=== PATIENT | male | born 1975 | race Caucasian/White ===

== ENCOUNTER 2023-04-07 09:38 | Outpatient (OUT) | payer OTHER, SELFPAY ==
--- NOTE | 2023-04-07 09:42 | US_ITS ---
[address] [address] Patient Name: GUTIERREZ WARD MRN: [id number] date: 1975 Sex: M Assigned Patient Location: US Current Patient Location: Accession/Order Number: [id number] Exam Date: 04/07/2023 09:48 Report Date: 04/07/2023 10:48 At the request of: FER HO Procedure: US renal bladder EXAM: US renal bladder HISTORY: Acute Cystitis N30.00 COMPARISON: None. TECHNIQUE: Ultrasound of the kidneys. FINDINGS: The right kidney measures 11.9 x 5.8 x 5.4 cm and appears normal. The left kidney measures 12.8 x 7.5 x 6.8 cm and appears normal. The urinary bladder appears normal. US/US renal bladder IMPRESSION: Unremarkable exam. Electronically authenticated by: PAM CAMPOS Date: 04/07/2023 10:48
== END 2023-04-07 09:39 | disposition home or self-care (01) ==
LOC: US 09:38
PROVIDERS: PCP Family Medicine; Visit Provider Family Medicine
DX: N30.00 Acute cystitis without hematuria (principal)
CPT/HCPCS: 76770

== ENCOUNTER 2024-02-13 07:43 | Outpatient (OUT) | payer OTHER, SELFPAY ==
--- OUTSIDE RECORDS SUMMARY | 2024-02-13 07:45 | XMS_ITS | CCD ---
Author Organization [facility] Care Team Providers Care Director Learning Services Name Role Phone Fer Feliz Primary Care Physician [phone] JOSE ANGEL, Khadar Reed Attending Unavailable Hoy PROVIDER, Fer Referring Unavailabl e NILL, Khadar Reed Attending Unavailable Hoy PROVIDER, Fer Referring Unavailabl e NILL, Khadar Reed Attending Unavailable Hoy PROVIDER, Fer Referring Unavailabl e NILL, Khadar Reed Attending Unavailable NILL, Khadar Reed Attending Unavailable NILL, Khadar Reed Attending Unavailable HOY ., DR MONROE Primary Care Unavailable NILL ., DR RUBALCAVA Attending Unavailable NILL ., DR RUBALCAVA Admitting Unavailable HOY ., DR MONROE Consulting Unavailable HOY ., DR MONROE Primary Care Unavailable HOY ., DR MONROE Attending Unavailable HOY ., DR MONROE Admitting Unavailable HOY ., DR MONROE Procedure Practitioner Unavail able HOY ., DR MONROE Consulting Unavailable HOY ., DR MONROE Attending Unavailable HOY ., DR MONROE Admitting Unavailable HOY ., DR MONROE Primary Care Unavailable TIKA CARRERO Consulting Unavailable ASIA BAXTER Consulting Unavailable HAWTHORNEREJI STOREY Consulting Unavailable SHAWANDA MILLER Consulting Unavailable HOY ., DR MONROE Consulting Unavailable HOY ., DR MONROE Primary Care Unavailable HOY ., DR MONROE Attending Unavailable HOY ., DR MONROE Admitting Unavailable HOY ., DR MONROE Consulting Unavailable HOY ., DR MONROE Primary Care Unavailable HOY ., DR MONROE Attending Unavailable HOY ., DR MONROE Admitting Unavailable NILL ., DR RUBALCAVA Consulting Unavailable HOY ., DR MONROE Primary Care Unavailable NILL ., DR RUBALCAVA Attending Unavailable NILL ., DR RUBALCAVA Admitting Unavailable HOY ., DR MONROE Consulting Unavailable HOY ., DR MONROE Primary Care Unavailable NILL ., DR RUBALCAVA Attending Unavailable NILL ., DR RUBALCAVA Admitting Unavailable NILL ., DR RUBALCAVA Consulting Unavailable LALY JACOBSEN Consulting Unavailable JENA VORA Consulting Unavailable NILL ., DR RUBALCAVA Consulting Unavailable HOY ., DR MONROE Primary Care Unavailable NILL ., DR RUBALCAVA Attending Unavailable NILL ., DR RUBALCAVA Admitting Unavailable HALLE BROOKS Consulting Unavailable WISAM GRANT Unavailable HOY, FER M Primary Care Unavailable JOSE MANUEL GRANT Referring Unavailable HOY, FER M Primary Care Unavailable GERMAN GARCIA Attending Unavailable GERMAN GARCIA Attending Unavailable GERMAN GARCIA Referring Unavailable HOY, FER M Primary Care Unavailable RADHA AVITIA I Attending Unavailable HOY, FER M Referring Unavailable HOY, FER M Primary Care Unavailable ERLIN CARDENAS Attending Unavailable HOY, FER M Referring Unavailable HOY, FER M Primary Care Unavailable HOY, FER M Referring Unavailable HOY, FER M Primary Care Unavailable RADHA AVITIA I Referring Unavailable HOY, FER M Primary Care Unavailable HOY, FER M Primary Care Unavailable RILEY, ALMA Attending Unavailable LIN, ALMA Attending Unavailable LINALMA Referring Unavailable HOY, FER M Primary Care Unavailable Fer Feliz MD Primary Care Provider [phone] ZHANNA RINCON Attending Unavailable HOY, FER M Referring Unavailable JESÚS SAUNDERS Attending Unavailable TIMMISZHANNA H Referring Unavailable KIKIMISZHANNA H Attending Unavailable TIMMIS, ZHANNA H Referring Unavailable Allergies Allergy Classification Reported Allergen(s) Allergy Type Date of Onset Reaction(s) Facility (4 sources) Acetaminophen / HYDROcodone; Translations: [acetaminophen-hy drocodone] Drug Allergy 03-15-20 14 Nausea (finding) [facility] [place] (4 sources) Penicillin; Translations: [penicillin] Drug Allergy Unknown (qualifier value) [facility] [place] (2 sources) Acetaminophen / HYDROcodone Drug Allergy 03-16-20 14 [facility] (5 sources) Penicillins; Translations: [PENICILLINS] Drug allergy (disorder) 03-16-20 14 [facility] (4 sources) Penicillins Drug Intolerance 06-12-19 [facility] Medications Current Medications Medication Drug Class(es) Dates Sig (Normalized) Sig (Original) Acidophilus Probiotic Blend (3 sources) Start: 09-18-2021 take 1 capsule by mouth once daily Acidophilus Probiotic Blend 1 cap(s), Oral, Daily, Refill(s) 0 Start Date: 09/18/21 Status: Ordered cetirizine hydrochloride 10 mg oral tablet (4 sources) Histamine-1 Receptor Antagonist Start: 11-13-2023 take 2 tablets by mouth once daily cetirizine (ZyrTEC) 10 MG tablet Take 20 mg by mouth Daily 11/13/2023 Active ciprofloxacin 3 mg/ml / dexamethasone 1 mg/ml otic suspension (4 sources) Corticosteroid, Quinolone Antimicrobial Start: 11-04-2023 ciprofloxacin-dex AMETHasone (CiproDEX) otic suspension Administer 4 drops into each ear in the morning and 4 drops before bedtime. 11/04/2023 Active fluticasone propionate 0.05 mg/actuat metered dose nasal spray (7 sources) Corticosteroid Start: 11-24-2023 End: 11-23-2024 take 2 spray(s) nasal route once daily fluticasone (Flonase) 50 MCG/ACT nasal spray Indications: ETD (Eustachian tube dysfunction), bilateral Administer 2 sprays into each nostril Daily Shake gently. Before first use, prime pump. After use, clean tip and replace cap. 16 g 11 11/24/2023 11/23/2024 Active Start: 11-13-2023 End: 01-20-2024 take 2 spray(s) nasal route in the morning Flonase Sensimist 27.5 MCG/SPRAY nasal spray Administer 2 sprays into each nostril in the morning. 11/13/2023 01/20/2024 Discontinued (Therapy completed) glimepiride 1 mg oral tablet (4 sources) Sulfonylurea Start: 11-16-2023 take 1 tablet by mouth before mealtime glimepiride (Amaryl) 1 MG tablet Take 1 mg by mouth in the morning. Take before meals. 11/16/2023 Active linaclotide 0.29 mg oral capsule (3 sources) Guanylate Cyclase-C Agonist Start: 09-12-2021 take 1 capsule by mouth once daily Linzess 290 mcg oral capsule 290 mcg = 1 cap(s), Oral, Daily, Refills(s) 0 Start Date: 09/12/21 Status: Ordered metFORMIN hydrochloride 500 mg oral tablet (3 sources) Biguanide Start: 09-12-2021 take 1 tablet by mouth twice daily metformin 500 mg oral tablet 500 mg = 1 tab(s), Oral, BID, Refills(s) 0 Start Date: 09/12/21 Status: Ordered metoprolol tartrate 25 mg oral tablet (2 sources) beta-Adrenergic Rosanne Start: 04-12-2022 take 1 tablet by mouth twice daily Metoprolol tartrate 25 mg Tab 25 mg = 1 tab(s), Oral, BID, Refills(s) 0 Start Date: 04/12/22 Status: Ordered pantoprazole 40 mg delayed release oral tablet (6 sources) Proton Pump Inhibitor Start: 09-19-2023 take 1 tablet by mouth once daily pantoprazole (ProtoNix) 40 MG EC tablet Take 40 mg by mouth Daily 09/19/2023 Active Start: 04-12-2022 take 1 tablet by chanell th once daily Protonix 40 mg Tab-DR 40 mg = 1 tab(s), Oral, Daily, Refills(s) 0 Start Date: 04/12/22 Status: Ordered polyethylene glycol 3350 28929 mg powder for oral solution (4 sources) Osmotic Laxative Start: 10-26-2023 polyethylene glycol, PEG, 3350 (Glycolax) 17 GM/SCOOP powder Take 17 g by mouth in the morning. 10/26/2023 Active sucralfate 1000 mg oral tablet (1 source) Aluminum Complex Start: 05-09-2022 Carafate 1 gram Tab 1 gm = 1 tab(s), Oral, QIDACHS, prescribed 05/08/22, Refills(s) 0 Start Date: 05/09/22 Status: Ordered tamsulosin hydrochloride 0.4 mg oral capsule (4 sources) alpha-Adrenergi c Rosanne Start: 08-23-2023 take 1 capsule by mouth every twenty-four hours in the morning tamsulosin (Flomax) 0.4 MG 24 hr capsule Take 0.4 mg by mouth in the morning. 08/23/2023 Active Completed/Discontinued Medications Medication Drug Class(es) Dates Sig (Normalized) Sig (Original) hyoscyamine sulfate 0.125 mg sublingual tablet (3 sources) Start: 10-03-2023 End: 01-20-2024 take 1 tablet by mouth every four hours as needed hyoscyamine (Levsin) 0.125 MG SL tablet Take 0.125 mg by mouth every 4 (four) hours if needed 10/03/2023 01/20/2024 Discontinued (Therapy completed) levoFLOXacin 750 mg oral tablet (3 sources) Quinolone Antimicrobial Start: 11-06-2023 End: 01-20-2024 levoFLOXacin (Levaquin) 750 MG tablet Take 250 mg by mouth 1 (one) time each day at the same time 11/06/2023 01/20/2024 Discontinued (Therapy completed) predniSONE 10 mg oral tablet (3 sources) Start: 11-13-2023 End: 01-20-2024 take 1 tablet by mouth once daily predniSONE (Deltasone) 10 MG tablet Take 10 mg by mouth Daily 11/13/2023 01/20/2024 Discontinued (Therapy completed) Problems Active Problems Problem Classification Problem Date Documented Da te Episodic/Chronic Abdominal pain (7 sources) Left lower quadrant pain; Translations: [Left lower quadrant pain] Onset: 2 Episodic Acute and unspecified renal failure (5 sources) Acute kidney failure, unspecified; Translations: [Acute nontraumatic kidney injury] Onset: 3 11-19-2023 Episodic Cardiac dysrhythmias (4 sources) Sinus tachycardia; Translations: [Tachycardia, unspecified] Onset: 4 11-19-2023 Episodic Coagulation and hemorrhagic disorders (1 source) Thrombocytopenia, unspecified; Translations: [THROMBOCYTOPENIA UNSPECIFIED] Onset: 3 Chronic Conditions associated with dizziness or vertigo (2 sources) Dizziness and giddiness; Translations: [Dizziness and giddiness] 01-20-2024 Episodic Deficiency and other anemia (1 source) Anemia, unspecified; Translations: [ANEMIA UNSPECIFIED] Onset: 3 Episodic Diabetes mellitus without complication (4 sources) Diabetes mellitus; Translations: [Type 2 diabetes mellitus without complications] Onset: 3 09-12-2021 Chronic Diabetes mellitus without complication (4 sources) Prediabetes; Translations: [Prediabetes] Onset: 4 11-19-2023 Episodic Digestive congenital anomalies (1 source) Other specified congenital malformations of intestine; Translations: [OTH SPEC CONGEN MALFORM INTESTINE] Onset: 2 Chronic Disorders of lipid metabolism (9 sources) Hypertriglyceridemia; Translations: [Pure hyperglyceridemia] Onset: 2 09-12-2021 Chronic Diverticulosis and diverticulitis (7 sources) Diverticulitis; Translations: [Diverticulitis of intestine, part unspecified, without perforation or abscess without bleeding] Onset: 4 09-12-2021 Chronic Esophageal disorders (15 sources) Gastroesophageal reflux disease; Translations: [Gastroesophageal reflux disease without esophagitis] Onset: 3 09-12-2021 Chronic Essential hypertension (4 sources) Hypertensive disorder; Translations: [Essential (primary) hypertension] Onset: 3 09-12-2021 Chronic Fluid and electrolyte disorders (6 sources) Hypo-osmolality and hyponatremia; Translations: [Hypokalemia] Onset: 3 11-19-2023 Episodic Gastritis and duodenitis (1 source) Gastritis, unspecified, without bleeding; Translations: [GASTRITIS UNS WITHOUT BLEEDING] Onset: 3 Episodic Glaucoma (7 sources) Glaucoma; Translations: [Unspecified glaucoma] Onset: 4 09-12-2021 Chronic Headache; including migraine (7 sources) Migraine; Translations: [Migraine, unspecified, not intractable, without status migrainosus] Onset: 4 09-12-2021 Chronic Inflammatory conditions of male genital organs (4 sources) Balanitis; Translations: [Balanitis] Onset: 4 11-19-2023 Chronic Neoplasms of unspecified nature or uncertain behavior (7 sources) Neoplasm of pancreas; 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] Onset: 4 09-12-2021 Episodic Nonmalignant breast conditions (7 sources) Gynecomastia; Translations: [Hypertrophy of breast] Onset: 4 09-12-2021 Episodic Other aftercare (1 source) group home (current) use of oral 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 drugs; Translations: [[employer] IN[employer]STIGATOR USE ORAL HYPOGLYCEMIC DX] Onset: 3 Episodic Other bone disease and musculoskeletal deformities (7 sources) Juvenile osteochondrosis of lower extremity; Translations: [Juvenile osteochondrosis of head of femur [[id number]], unspecified leg] Onset: 4 09-12-2021 Chronic Other ear and sense organ disorders (2 sources) Bilateral earache; Translations: [Otalgia, bilateral] 01-20-2024 Episodic Other ear and sense organ disorders (2 sources) Impacted cerumen of bilateral ears; Translations: [Impacted cerumen, bilateral] 01-20-2024 Episodic Other gastrointestinal disorders (7 sources) Irritable bowel syndrome; Translations: [Irritable bowel syndrome without diarrhea] Onset: 4 09-12-2021 Chronic Other gastrointestinal disorders (1 source) Altered bowel function; Translations: [Change in bowel habit] Onset: 2 Episodic Other gastrointestinal disorders (3 sources) Alteration in bowel elimination 09-18-2021 Episodic Other gastrointestinal disorders (7 sources) Constipation; Translations: [Constipation, unspecified] Onset: 4 09-12-2021 Episodic Other gastrointestinal disorders (1 source) Dysphagia 04-20-2022 Episodic Other gastrointestinal disorders (1 source) Dysphagia, unspecified; Translations: [DYSPHAGIA UNSPECIFIED] Onset: 3 Episodic Other gastrointestinal disorders (1 source) Abdominal distension (gaseous); Translations: [Abdominal distension (gaseous)] Onset: 3 Episodic Other gastrointestinal disorders (1 source) Constipation, unspecified; Translations: [Constipation, unspecified] Onset: 4 Episodic Other nutritional; endocrine; and metabolic disorders (2 sources) Obese class II; Translations: [Body mass index (BMI) 38.0-38.9, adult] Onset: 2 Chronic Other nutritional; endocrine; and metabolic disorders (3 sources) Body mass index 30+ - obesity 09-18-2021 Chronic Other nutritional; endocrine; and metabolic disorders (1 source) Morbid (severe) obesity due to excess calories; Translations: [MORBID SEVERE OBES D/T EXCESS CHARLEEN] Onset: 3 Chronic Other nutritional; endocrine; and metabolic disorders (1 source) Body mass index (BMI) 38.0-38.9, adult; Translations: [BODY MASS INDEX BMI 38.0-38.9 ADULT] Onset: 3 Chronic Other nutritional; endocrine; and metabolic disorders (7 sources) Hyperuricemia; Translations: [Hyperuricemia without signs of inflammatory arthritis and tophaceous disease] Onset: 4 09-12-2021 Episodic Other nutritional; endocrine; and metabolic disorders (4 sources) Overweight; Translations: [Overweight] Onset: 4 11-19-2023 Episodic Other skin disorders (4 sources) Acne; Translations: [Acne, unspecified] Onset: 4 11-19-2023 Episodic Other upper respiratory infections (2 sources) Chronic sinusitis; Translations: [Chronic sinusitis, unspecified] 01-20-2024 Chronic Other upper respiratory infections (4 sources) Acute sinusitis; Translations: [Acute sinusitis, unspecified] Onset: 4 11-19-2023 Episodic Residual codes; unclassified (1 source) Insomnia, unspecified; Translations: [INSOMNIA UNSPECIFIED] Onset: 3 Episodic Septicemia (except in labor) (10 sources) Sepsis, unspecified organism; Translations: [Sepsis due to Escherichia coli [E. coli]] Onset: 3 Episodic Spondylosis; intervertebral disc disorders; other back problems (6 sources) Disorder of lumbar disc; Translations: [Unspecified thoracic, thoracolumbar and lumbosacral intervertebral disc disorder] Onset: 4 04-12-2022 Chronic Unclassified (1 source) PERSONAL HISTORY OF COVID-19; Translations: [PERSONAL HISTORY OF COVID-19] Onset: 3 Unclassified (3 sources) CONTACT W/AND (SUSP) EXPOS COVID-19; Translations: [CONTACT W/AND (SUSP) EXPOS COVID-19] Onset: 2 Unclassified (1 source) GASTR-ESOPH RFLX DS ESPHGTS W/O BLD; Translations: [GASTR-ESOPH RFLX DS ESPHGTS W/O BLD] Onset: 3 Unclassified (1 source) Urinary Frequency, Pressure Onset: 4 Urinary tract infections (11 sources) Tubulo-interstitial nephritis, not specified as acute or chronic; Translations: [Acute pyelonephritis] Onset: 3 Episodic Viral infection (4 sources) Disease caused by 2019-nCoV; Translations: [COVID-19] Onset: 4 11-19-2023 Episodic Viral infection (1 source) COVID-19; Translations: [COVID-19] Onset: 2 Past or Other Problems Problem Classification Problem Date Documented Da te Episodic/Chronic Calculus of urinary tract (7 sources) Calculus of kidney; Translations: [Kidney stone] Onset: 08-23-2023 11-19-2023 Episodic Genitourinary symptoms and ill-defined conditions (5 sources) Urinary frequency; Translations: [Increased frequency of urination] Onset: 06-12-2021 11-19-2023 Episodic Other gastrointestinal disorders (4 sources) Change in bowel habit; Translations: [CHANGE IN BOWEL HABIT] Onset: 10-24-2021 Episodic Other screening for suspected conditions (not mental disorders or infectious disease) (4 sources) Patient encounter status; Translations: [Encounter for screening for malignant neoplasm of prostate] Onset: 06-12-2021 11-19-2023 Episodic Unclassified (1 source) CONTACT W/AND (SUSP) EXPOS COVID-19; Translations: [CONTACT W/AND (SUSP) EXPOS COVID-19] Onset: 12-13-2021 Results Test Name Value Interpretation Reference Range Facility XR PARANASAL SINUSES 3+ VIEW Son 01-21-2024 XR PARANASAL SINUSES 3+ VIEWS Exam: XR - XRAY SINUSES COMP MIN 3 VIEWS Reason for exam: Imbalance issues, some sinus pressure Prior comparative studies: None Findings: No air-fluid levels are apparent. There is prominent adenoidal tissue versus nasopharyngeal swelling. Orbital structures are unremarkable. IMPRESSION: 1. Prominent adenoids versus nasopharyngeal swelling. Recommend direct clinical correlation to this area. If needed, CT could be used to better characterize. Electronically Signed Sam Ring M.D. 2024-01-21 16:12:[address] ABDOMEN AND PELVIS WO CON Ton 10-26-2023 CT ABDOMEN AND PELVIS WO CONT CT ABDOMEN AND PELVIS WO CONT CT ABDOMEN AND PELVIS WO CONT CLINICAL INFORMATION: Abdominal/flank pain, stone suspected. Lower right groin/bladder pain with urinary frequency. Renal calculus screening and follow-up. COMPARISON: CT abdomen and pelvis without contrast 08/23/2023. TECHNIQUE: CT of the abdomen/pelvis without intravenous contrast. All CT scans at this facility use dose modulation, iterative reconstruction, and/or weight based dosing when appropriate to reduce radiation dose to as low as reasonably achievable. FINDINGS: Limited evaluation of solid organs, lymph nodes, and vessels in the absence of IV contrast. LOWER CHEST: Unremarkable. LIVER AND BILIARY: Noncirrhotic morphology. No biliary ductal dilatation. Biliary sludge/small gallstones increased from prior within without evidence of inflammatory changes. PANCREAS: Unremarkable morphology. No ductal dilatation or peripancreatic fluid. SPLEEN: Not enlarged. ADRENALS: Unremarkable morphology. KIDNEYS: Right kidney is unremarkable. There is a 4 mm renal calculus in the lower pole of the left kidney without collecting system dilatation. No ureteral or bladder calculi are seen. GI TRACT AND PERITONEUM: Unremarkable morphology of the stomach and the duodenum. Normal caliber small and large bowel. No free intraperitoneal air. The appendix is not definitively visualized, however no inflammatory changes in the right lower quadrant to suggest appendicitis. VASCULATURE: Right-sided IVC. The abdominal aorta is nonaneurysmal. LYMPH NODES: No grossly enlarged retroperitoneal or mesenteric lymph nodes. MUSCULOSKELETAL: No acute osseous abnormality. Chronic deformity of the right femoral head. Degenerative changes of the thoracolumbar spine. PELVIS: Bladder and prostate appear unremarkable. IMPRESSION: * 4 mm left renal calculus without collecting system dilatation or evidence of obstruction. * No ureteral or bladder calculi visualized. * Cholelithiasis without CT evidence of acute cholecystitis. Approved by Resident Trace Cordero MD on 10/26/2023 9:34 AM I, Flakito Onofre have personally reviewed the image(s) and agree with and/or edited the report Finalized by Flakito Onofre on 10/26/2023 10:06 AM Normal [facility] URN MACROSCOPIC NURon 2023 BILIRUBIN ALEJANDRA Negative Normal NEG [facility] Comment on above: Performed By: #### N UM #### [facility] ([id number]) [address] [place] [id number] BLOOD/HGB ALEJANDRA Trace Abnormal NEG [facility] Comment on above: Performed By: #### N UM #### [facility] ([id number]) [address] [place] [address] 05266 GLUCOSE ALEJANDRA Negative Normal NEG [facility] Comment on above: Performed By: #### N UM #### [facility] ([id number]) [address] [place] [address] 44428 KETONES ALEJANDRA Negative Normal NEG [facility] Comment on above: Performed By: #### N UM #### [facility] ([id number]) [address] [place] [address] 67611 LEUKOCYTE ESTERASE ALEJANDRA Negative Normal NEG [facility] Comment on above: Performed By: #### N UM #### [facility] ([id number]) [address] [place] [address] 91134 NITRITE ALEJANDRA Negative Normal NEG [facility] Comment on above: Performed By: #### N UM #### [facility] ([id number]) [address] [place] [address] 62640 PH ALEJANDRA 5.5 Normal 5.0-8.5 [facility] Comment on above: Performed By: #### N UM #### [facility] ([id number]) [address] [place] [address] 01627 PROTEIN ALEJANDRA Negative Normal NEG [facility] Comment on above: Performed By: #### N UM #### [facility] ([id number]) [address] [place] [address] 14496 SPECIFIC GRAVITY ALEJANDRA 1.025 Normal 1.003-1.035 [facility] Comment on above: Performed By: #### N UM #### [facility] ([id number]) [address] [place] [address] 11829 UROBILINOGEN ALEJANDRA 0.2 eu/dL Normal <1.1 [facility] Comment on above: Performed By: #### N UM #### [facility] ([id number]) [address] [place] [address] 23445 XR ABDOMEN AP 1 VWon 06-24-2 024 XR ABDOMEN AP 1 VW XR ABDOMEN AP 1 VW Clinical history: A frontal sinuses ABDOMEN: 10/13/2023 COMPARISON: None FINDINGS: 2 supine images the abdomen were obtained. L calcification is evident. The previous left ureteral calculus is not clearly identified on radiographic assessment. Liver no dilated bowel loops. Degenerative changes are present within the lumbar spine and hips with flattening of the right hip articular surfaces which may be developmental or related to remote injury. IMPRESSION: No suspicious calcification evident radiographically. Finalized by Erlin Villa MD on 10/13/2023 1:14 PM Normal [facility] UA (MICROSCOPIC)on 4 CELLULAR CASTS 1 /lpf High 0 [facility] Comment on above: Performed By: #### U LACY #### [facility] ([id number]) [address], [address] [place] [address] Hyaline casts LM Ql (Urine sed) 4 /lpf High 0-2 [facility] Comment on above: Performed By: #### U LACY #### [facility] ([id number]) [address], [address] [place] [address] MUCOUS PRESENT Abnormal NONE [facility] Comment on above: Performed By: #### U LACY #### [facility] ([id number]) [address], [address] [place] [address] R.B.CELLS 1 /hpf Normal 0-5 [facility] Comment on above: Performed By: #### U LACY #### [facility] ([id number]) [address], [address] [place] [address] SQUAMOUS EPITHELIUM 1 /hpf Normal 0-5 [facility] Comment on above: Performed By: #### U LACY #### [facility] ([id number]) [address], [address] [place] [address] W.B.CELLS 1 /hpf Normal 0-5 [facility] Comment on above: Performed By: #### U LACY #### [facility] ([id number]) [address] [place] [address] CBC W Auto Differential pane l (Bld)on 08-23-2023 % MID 6.2 % Normal [facility] Comment on above: Performed By: #### 5 7021-8 #### [facility] ([id number]) [address] [place] [address] ABSOLUTE MID 0.7 x10E9/L Normal 0.0-0.9 [facility] Comment on above: Performed By: #### 5 7021-8 #### [facility] ([id number]) [address] [place] [address] Erythrocyte distribution width (RBC) [Ratio] 12.8 % Normal 11.5-15.0 [facility] Comment on above: Performed By: #### 5 7021-8 #### [facility] ([id number]) [address] [place] [address] Granulocytes (Bld) [#/Vol] 7.1 10*3/uL Normal 1.5-7.2 [facility] Comment on above: Performed By: #### 5 7021-8 #### [facility] ([id number]) [address] [place], [place] [address] Granulocytes/100 WBC (Bld) 71.0 % Normal [facility] Comment on above: Performed By: #### 5 7021-8 #### [facility] ([id number]) [address] [place] [address] Hematocrit (Bld) [Volume fraction] 46.9 % Normal 39-50 [facility] Comment on above: Performed By: #### 5 7021-8 #### [facility] ([id number]) [address] [place] [address] Hemoglobin (Bld) [Mass/Vol] 15.9 g/dL Normal 13.0-17.0 [facility] Comment on above: Performed By: #### 5 7021-8 #### [facility] ([id number]) [address] [place] [address] Lymphocytes (Bld) [#/Vol] 2.3 10*3/uL Normal 1.0-3.5 [facility] Comment on above: Performed By: #### 5 7021-8 #### [facility] ([id number]) [address] [place] [address] Lymphocytes/100 WBC (Bld) 22.8 % Normal [facility] Comment on above: Performed By: #### 5 7021-8 #### [facility] ([id number]) [address] [place] [address] MCH (RBC) [Entitic mass] 30.0 pg Normal 27-34 [facility] Comment on above: Performed By: #### 5 7021-8 #### [facility] ([id number]) [address] [place] [address] MCHC (RBC) [Mass/Vol] 33.9 g/dL Normal 32-36 [facility] Comment on above: Performed By: #### 5 7021-8 #### [facility] ([id number]) [address] [place] [address] MCV (RBC) [Entitic vol] 89 fL Normal 80-100 [facility] Comment on above: Performed By: #### 5 7021-8 #### [facility] ([id number]) [address] [place] [address] Platelet mean volume (Bld) [Entitic vol] 8.8 fL Normal 7-12 [facility] Comment on above: Performed By: #### 5 7021-8 #### [facility] ([id number]) [address] [place] [address] Platelets (Bld) [#/Vol] 180 10*3/uL Normal 150-450 [facility] Comment on above: Performed By: #### 5 7021-8 #### [facility] ([id number]) [address] [place] [address] 36435 RBC 5.30 x10E12/L Normal 4.10-5.70 [facility] Comment on above: Performed By: #### 5 7021-8 #### [facility] ([id number]) [address] [place] [address]78 WBC (Bld) [#/Vol] 10.1 10*3/uL Normal 4.0-11.0 [facility] Comment on above: Performed By: #### 5 7021-8 #### [facility] ([id number]) [address] [place] [address] ABDOMEN AND PELVIS WO CON Ton 08-23-2023 CT ABDOMEN AND PELVIS WO CONT CT ABDOMEN AND PELVIS WO CONT CLINICAL INFORMATION: left flank pain. TECHNIQUE: CT Abdomen and Pelvis without intravenous contrast. All CT scans at this facility use dose modulation, iterative reconstruction, and/or weight based dosing when appropriate to reduce radiation dose to as low as reasonably achievable. COMPARISON: No relevant prior studies available. FINDINGS: Motion artifacts compromises the evaluation. The stomach is distended with food material. Echogenic material layering in the gallbladder likely represent gallstones. Given the lack of intravenous contrast, no acute abnormality seen in the liver, spleen, adrenal glands, or pancreas. There is mild left hydronephrosis and perinephric stranding due to 6/4 mm calculus in the proximal left ureter. A tiny nonobstructive calculus is also seen in the upper left kidney.. Chronic appearing deformity of the right femoral head. IMPRESSION: * Mild left hydronephrosis and perinephric stranding due to 6-4 mm calculus in the proximal left ureter. * Cholelithiasis. Finalized by Adele Bueno MD on 08/23/2023 6:54 PM Normal [facility] POC [id number] 08-23-2023 Chloride [Moles/Vol] 107 mmol/L Normal 98-109 [facility] Comment on above: Performed By: #### I BMP #### [facility] ([id number]) [address] [place] [address]67 CO2 [Moles/Vol] 24 mmol/L Normal 22-32 [facility] Comment on above: Performed By: #### I BMP #### [facility] ([id number]) [address] [place] [address]58 Creatinine [Mass/Vol] 1.0 mg/dL Normal 0.7-1.2 [facility] Comment on above: Result Comment: METH OD TRACEABLE TO IDMS STANDARD Performed By: #### I BMP #### [facility] ([id number]) [address] [place] [address]257 eGFR (CKD-EPI) NON-RACE DEPENDENT >90 Normal >59 [facility] Comment on above: Result Comment: Reported eGFR is based on the CKD-EPI 2020 equation that does not use a race coefficient. Performed By: #### I BMP #### [facility] ([id number]) [address] [place] [address]000 Glucose [Mass/Vol] 123 mg/dL High 65-99 [facility] Comment on above: Performed By: #### I BMP #### [facility] ([id number]) [address] [place] [address] PORTABLE ICA 4.5 mg/dL Normal 4.5-5.3 [facility] Comment on above: Performed By: #### I BMP #### [facility] ([id number]) [address] [place] [address]188 Potassium [Moles/Vol] 4.0 mmol/L Normal 3.5-5.0 [facility] Comment on above: Performed By: #### I BMP #### [facility] ([id number]) [address] [place] [address] 61689 Sodium [Moles/Vol] 141 mmol/L Normal 134-146 [facility] Comment on above: Performed By: #### I BMP #### [facility] ([id number]) [address] [place] [address] Urea nitrogen [Mass/Vol] 20 mg/dL Normal 6-23 [facility] Comment on above: Performed By: #### I BMP #### [facility] ([id number]) [address] [place] [address] URINE CULTUREon 08-23-2023 Bacteria identified Cx Nom (U) CULTURE RESULTS NO GROWTH AT <1000 CFU/mL Normal [facility] Comment on above: Performed By: #### 6 30-4 #### [facility] ([id number]) [address] [place] [address], [address] [place] [address] URN MACROSCOPIC NURon 2023 BILIRUBIN ALEJANDRA Negative Normal NEG [facility] Comment on above: Performed By: #### N UM #### [facility] ([id number]) [address] [place] [address] 20001 BLOOD/HGB ALEJANDRA Large Abnormal NEG [facility] Comment on above: Performed By: #### N UM #### [facility] ([id number]) [address] [place] [address] GLUCOSE ALEJANDRA Negative Normal NEG [facility] Comment on above: Performed By: #### N UM #### [facility] ([id number]) [address] [place] [address] KETONES ALEJANDRA Negative Normal NEG [facility] Comment on above: Performed By: #### N UM #### [facility] ([id number]) [address] [place] [address] 54473 LEUKOCYTE ESTERASE ALEJANDRA Trace Abnormal NEG [facility] Comment on above: Performed By: #### N UM #### [facility] ([id number]) [address] [place] [address] 20898 NITRITE ALEJANDRA Negative Normal NEG [facility] Comment on above: Performed By: #### N UM #### [facility] ([id number]) [address] [place] [address] 39223 PH ALEJANDRA 5.5 Normal 5.0-8.5 [facility] Comment on above: Performed By: #### N UM #### [facility] ([id number]) [address] [place] [address] PROTEIN ALEJANDRA 30 mg/dL Abnormal NEG [facility] Comment on above: Performed By: #### N UM #### [facility] ([id number]) [address] [place] [address]25[address] SPECIFIC GRAVITY ALEJANDRA 1.020 Normal 1.003-1.035 [facility] Comment on above: Performed By: #### N UM #### [facility] ([id number]) [address] [place] [address] 94282 UROBILINOGEN ALEJANDRA 0.2 eu/dL Normal <1.1 [facility] Comment on above: Performed By: #### N UM #### [facility] ([id number]) [address] [place] [address] 80101 H. pylori Antigenon 12-08-19 23 H. pylori Antigen Specimen Description .FECES Direct Exam NEGATIVE Report Status FINAL 12/07/2022 [facility] Comment on above: Performed By: #### F HPY #### [facility] [address] [place], [place] [id number] [employer] Blank Handler: Eric Blood MD [facility] [address] [place] [address] [employer] Handler: Alma Galicia MD CBC AUTO DIFFon 07-08-2022 BASO # 0.1 103/ul Normal 0.0-0.1 [facility] Comment on above: Performed By: #### P OCGLUC #### [facility] [address] [address] [address] Nayely Ferrer Basophils/100 WBC (Bld) 0.9 % Normal 0.2-2.0 [facility] Comment on above: Performed By: #### P OCGLUC #### [facility] [address] [place] [address] Dr. Nayely Ferrer EO # 0.1 103/ul Normal 0.0-0.7 [facility] Comment on above: Performed By: #### P OCGLUC #### [facility] [address] [address] [address] Nayely Ferrer Eosinophils/100 WBC (Bld) 2.2 % Normal 0.9-7.0 [facility] Comment on above: Performed By: #### P OCGLUC #### [facility] [address] [address] [address] Nayely Ferrer Erythrocyte distribution width (RBC) [Ratio] 13.7 % Normal 11.0-15.0 [facility] Comment on above: Performed By: #### P OCGLUC #### [facility] [address] [address] [address] Nayely Ferrer Hematocrit (Bld) [Volume fraction] 42.3 % Normal 42.0-54.0 [facility] Comment on above: Performed By: #### P OCGLUC #### [facility] [address] [address] [address] Nayely Ferrer Hemoglobin (Bld) [Mass/Vol] 13.8 g/dL Critically low 14.0-18.0 [facility] Comment on above: Performed By: #### P OCGLUC #### [facility] [address] [address] [address] Nayely Ferrer IG # 0.01 10e3/ul Normal 0.00-0.03 [facility] Comment on above: Performed By: #### P OCGLUC #### [facility] [address] [address] [address] Nayely Ferrer IG % 0.2 % Normal 0.0-0.5 [facility] Comment on above: Performed By: #### P OCGLUC #### [facility] [address] [place] [address] Dr. Nayely Ferrer LYMPH # 1.8 103/ul Normal 1.2-3.8 [facility] Comment on above: Performed By: #### P OCGLUC #### [facility] [address] [place] [address] Dr. Nayely Ferrer Lymphocytes/100 WBC (Bld) 28.0 % Normal 20.5-60.0 [facility] Comment on above: Performed By: #### P OCGLUC #### [facility] [address] [place] [address] Dr. Nayely Ferrer MANUAL DIFF REQ NO Normal [facility] Comment on above: Performed By: #### P OCGLUC #### [facility] [address] [place] [address] Dr. Nayely Ferrer MCH (RBC) [Entitic mass] 28.7 pg Normal 25.9-34.0 [facility] Comment on above: Performed By: #### P OCGLUC #### [facility] [address] [place] [address] Dr. Nayely Ferrer MCHC (RBC) [Mass/Vol] 32.6 g/dL Normal 29.9-35.2 [facility] Comment on above: Performed By: #### P OCGLUC #### [facility] [address] [place] [address] Dr. Nayely Ferrer MCV (RBC) [Entitic vol] 87.9 fL Normal 80.0-94.0 [facility] Comment on above: Performed By: #### P OCGLUC #### [facility] [address] [address] [address] Nayely Ferrer MONO # 0.3 103/ul Normal 0.3-0.8 [facility] Comment on above: Performed By: #### P OCGLUC #### [facility] [address] [address] [address] Nayely Ferrer Monocytes/100 WBC (Bld) 4.9 % Normal 1.7-12.0 [facility] Comment on above: Performed By: #### P OCGLUC #### [facility] [address] [address] [address] Nayely Ferrer NEUT # 4.2 103/ul Normal 1.4-6.5 [facility] Comment on above: Performed By: #### P OCGLUC #### [facility] [address] [place] [address] Dr. Nayely Ferrer Neutrophils/100 WBC (Bld) 63.8 % Normal 43.0-75.0 [facility] Comment on above: Performed By: #### P OCGLUC #### [facility] [address] [address] [address] Nayely Ferrer Platelet mean volume (Bld) [Entitic vol] 9.3 fL Critically low 9.5-13.5 [facility] Comment on above: Performed By: #### P OCGLUC #### [facility] [address] [address] [address] Nayely Ferrer PLT 207 103/ul Normal 150-450 [facility] Comment on above: Performed By: #### P OCGLUC #### [facility] [address] [address] [address] Nayely Ferrer RBC 4.81 106/ul Normal 4.70-6.10 [facility] Comment on above: Performed By: #### P OCGLUC #### [facility] [address] [address] [address] Nayely Ferrer WBC 6.5 103/ul Normal 4.0-11.0 [facility] Comment on above: Performed By: #### P OCGLUC #### [facility] [address] [place] [address] Dr. Nayely Ferrer CULTURE URINEon 07-08-2022 CULTURE URINE Culture Observations : LIGHT GROWTH OF MIXED SKIN HONG. NO POTENTIAL PATHOGENS SEEN. Normal [facility] Comment on above: Performed By: #### U RCX #### [facility] [address] [place] [address] Dr. Nayely Ferrer IRONon 07-08-2022 Iron [Mass/Vol] 79.0 ug/dL Normal 65.0-175.0 [facility] Comment on above: Performed By: #### P OCGLUC #### [facility] [address] [place] [address] Dr. Nayely Ferrer PROF 14(COMP METB)on 023 Albumin [Mass/Vol] 3.5 g/dL Normal 3.4-5.0 [facility] Comment on above: Performed By: #### P OCGLUC #### [facility] [address] [place] [address] Dr. Nayely Ferrer Albumin/Globulin [Mass ratio] 0.7 {ratio} Normal [facility] Comment on above: Performed By: #### P OCGLUC #### [facility] [address] [place] [address] Dr. Nayely Ferrer ALP [Catalytic activity/Vol] 44 U/L Critically low 46-116 [facility] Comment on above: Performed By: #### P OCGLUC #### [facility] [address] [place] [address] Dr. Nayely Ferrer ALT [Catalytic activity/Vol] 34 U/L Normal 16-63 [facility] Comment on above: Performed By: #### P OCGLUC #### [facility] [address] [place] [address] Dr. Nayely Ferrer Anion gap [Moles/Vol] 12.1 mmol/L Normal [facility] Comment on above: Performed By: #### P OCGLUC #### [facility] [address] [place] [address] Dr. Nayely Ferrer AST [Catalytic activity/Vol] 33 U/L Normal 15-37 [facility] Comment on above: Performed By: #### P OCGLUC #### [facility] [address] [address] [address] Nayely Ferrer Bilirubin [Mass/Vol] 0.5 mg/dL Normal 0.2-1.0 [facility] Comment on above: Performed By: #### P OCGLUC #### [facility] [address] [address] [address] Nayely Ferrer Calcium [Mass/Vol] 9.1 mg/dL Normal 8.5-10.1 [facility] Comment on above: Performed By: #### P OCGLUC #### [facility] [address] [address] [address] Nayely Ferrer Chloride [Moles/Vol] 104 mmol/L Normal 98-107 [facility] Comment on above: Performed By: #### P OCGLUC #### [facility] [address] [address] [address] Nayely Ferrer CO2 [Moles/Vol] 27.4 mmol/L Normal 21.0-32.0 [facility] Comment on above: Performed By: #### P OCGLUC #### [facility] [address] [address] [address] Nayely Ferrer Creatinine [Mass/Vol] 1.18 mg/dL Normal 0.70-1.30 [facility] Comment on above: Performed By: #### P OCGLUC #### [facility] [address] [address] [address] Nayely Ferrer EGFR-AF BRUNEIAN >60 Normal >=60 [facility] Comment on above: Performed By: #### P OCGLUC #### [facility] [address] [address] [address] Nayely Ferrer EGFR-NON AF BRUNEIAN >60 Normal >=60 [facility] Comment on above: Performed By: #### P OCGLUC #### [facility] [address] [address] [address] Nayely Ferrer Globulin (S) [Mass/Vol] 4.7 g/dL Normal [facility] Comment on above: Performed By: #### P OCGLUC #### [facility] [address] [address] [address] Nayely Ferrer Glucose [Mass/Vol] 126 mg/dL Critically high 74-106 [facility] Comment on above: Performed By: #### P OCGLUC #### [facility] [address] [address] [address] Nayely Ferrer Potassium [Moles/Vol] 3.5 mmol/L Normal 3.5-5.1 [facility] Comment on above: Performed By: #### P OCGLUC #### [facility] [address] [address] [address] Nayely Ferrer Protein [Mass/Vol] 8.2 g/dL Normal 6.4-8.2 [facility] Comment on above: Performed By: #### P OCGLUC #### [facility] [address] [address] [address] Nayely Ferrer Sodium [Moles/Vol] 140 mmol/L Normal 136-145 [facility] Comment on above: Performed By: #### P OCGLUC #### [facility] [address] [address] [address] Nayely Ferrer Urea nitrogen [Mass/Vol] 11.0 mg/dL Normal 7.0-18.0 [facility] Comment on above: Performed By: #### P OCGLUC #### [facility] [address] [address] [address] Nayely Ferrer Urea nitrogen/Creatinine [Mass ratio] 9.3 mg/mg Normal [facility] Comment on above: Performed By: #### P OCGLUC #### [facility] [address] [address] [address] Nayely Ferrer UA RANDOM W/MICROSCOPICon BACTERIA TRACE Abnormal NONE SEEN [facility] Comment on above: Performed By: #### P OCGLUC #### [facility] [address] [address] [address] Nayely Ferrer Bilirubin Ql (U) Negative Normal NEGATIVE [facility] Comment on above: Performed By: #### P OCGLUC #### [facility] [address] [address] [address] Nayely Ferrer CAST NONE SEEN Normal NONE SEEN [facility] Comment on above: Performed By: #### P OCGLUC #### [facility] [address] [place] [address] Dr. Nayely Ferrer Clarity (U) CLEAR Normal CLEAR [facility] Comment on above: Performed By: #### P OCGLUC #### [facility] [address] [place] [address] Dr. Nayely Ferrer Color (U) LT. YELLOW Normal YELLOW [facility] Comment on above: Performed By: #### P OCGLUC #### [facility] [address] [place] [address] Dr. Nayely Ferrer Crystals LM Nom (Urine sed) NONE SEEN Normal NONE SEEN [facility] Comment on above: Performed By: #### P OCGLUC #### [facility] [address] [place] [address] Dr. Nayely Ferrer Epithelial cells LM Ql (Urine sed) RARE Normal NONE SEEN /RARE [facility] Comment on above: Performed By: #### P OCGLUC #### [facility] [address] [place] [address] Dr. Nayely Ferrer Glucose Ql (U) >1000 Abnormal NEGATIVE [facility] Comment on above: Performed By: #### P OCGLUC #### [facility] [address] [place] [address] Dr. Nayely Ferrer Hemoglobin Ql (U) Negative Normal NEGATIVE [facility] Comment on above: Performed By: #### P OCGLUC #### [facility] [address] [place] [address] Dr. Nayely Ferrer Ketones Ql (U) TRACE Abnormal NEGATIVE [facility] Comment on above: Performed By: #### P OCGLUC #### [facility] [address] [place] [address] Dr. Nayely Ferrer LEUKOCYTES Negative Normal NEGATIVE [facility] Comment on above: Performed By: #### P OCGLUC #### [facility] [address] [place] [address] Dr. Nayely Ferrer MUCOUS NONE SEEN Normal NONE SEEN [facility] Comment on above: Performed By: #### P OCGLUC #### [facility] [address] [address] [address] Nayely Ferrer Nitrite Ql (U) Negative Normal NEGATIVE [facility] Comment on above: Performed By: #### P OCGLUC #### [facility] [address] [address] [address] Nayely Ferrer pH (U) 5.5 [pH] Normal 5-9 [facility] Comment on above: Performed By: #### P OCGLUC #### [facility] [address] [place] [address] Dr. Nayely Ferrer RBC 0-2 Normal 0-2 [facility] Comment on above: Performed By: #### P OCGLUC #### [facility] [address] [place] [address] Dr. Nayely Ferrer SPEC GRAVITY 1.015 Normal 1.005-<=1.0 25 [facility] Comment on above: Performed By: #### P OCGLUC #### [facility] [address] [place] [address] Dr. Nayely Ferrer UA PROTEIN TRACE Normal NEGATIVE/ TRACE [facility] Comment on above: Performed By: #### P OCGLUC #### [facility] [address] [place] [address] Dr. Nayely Ferrer Urobilinogen Qn (U) 0.2 {Ced'U}/dL Normal 0.2 - 1. 0 [facility] Comment on above: Performed By: #### P OCGLUC #### [facility] [address] [place] [address] Dr. Nayely Ferrer WBC 2-5 Abnormal NONE SEEN [facility] Comment on above: Performed By: #### P OCGLUC #### [facility] [address] [place] [address] Dr. Nayely Ferrer CULTURE BLOODon 06-23-2022 Microscopic examination of blood, culture Culture Observations: Positive blood culture. Aerobic bottle. Notified Gisela Gama/Med Surg Culture Observations: 06/19/22 @11:10 -[facility] Culture Observations: NO GROWTH IN ANAEROBIC BOTTLE AT 5 days. Isolate 1 Escherichia coli Growth of ORGANISM 1 Escherichia coli ANTIBIOTIC M.I.C RX STATUS Ampicillin >=32 R C Ampicillin/Sulbactam >=32 R C Piperacillin/Tazobactam 64 I C Cefazolin >=64 R C Ceftazidime >=64 R C Ceftriaxone >=64 R C Ertapenem <=0.5 S C Imipenem <=0.25 S C Amikacin 8 S C Gentamicin >=16 R C Tobramycin >=16 R C Ciprofloxacin >=4 R C Levofloxacin >=8 R C Trimethoprim/Sulfamethoxazol e >=320 R C Normal [facility] Comment on above: Performed By: #### P OCGLUC #### [facility] [address] [place] [address] Dr. Nayely Ferrer CBC AUTO DIFFon 06-20-2022 BASO # 0.0 103/ul Normal 0.0-0.1 [facility] Comment on above: Performed By: #### P OCGLUC #### [facility] [address] [place] [address] Dr. Nayely Ferrer Basophils/100 WBC (Bld) 0.3 % Normal 0.2-2.0 [facility] Comment on above: Performed By: #### P OCGLUC #### [facility] [address] [place] [address] Dr. Nayely Ferrer EO # 0.1 103/ul Normal 0.0-0.7 [facility] Comment on above: Performed By: #### P OCGLUC #### [facility] [address] [place] [address] Dr. Nayely Ferrer Eosinophils/100 WBC (Bld) 0.6 % Critically low 0.9-7.0 [facility] Comment on above: Performed By: #### P OCGLUC #### [facility] [address] [place] [address] Dr. Nayely Ferrer Erythrocyte distribution width (RBC) [Ratio] 13.8 % Normal 11.0-15.0 [facility] Comment on above: Performed By: #### P OCGLUC #### [facility] [address] [place] [address] Dr. Nayely Ferrer Hematocrit (Bld) [Volume fraction] 32.4 % Critically low 42.0-54.0 [facility] Comment on above: Performed By: #### P OCGLUC #### [facility] [address] [place] [address] Dr. Nayely Ferrer Hemoglobin (Bld) [Mass/Vol] 10.9 g/dL Critically low 14.0-18.0 [facility] Comment on above: Performed By: #### P OCGLUC #### [facility] [address] [place] [address] Dr. Nayely Ferrer IG # 0.08 10e3/ul Critically high 0.00-0.03 [facility] Comment on above: Performed By: #### P OCGLUC #### [facility] [address] [place] [address] Dr. Nayely Ferrer IG % 0.8 % Critically high 0.0-0.5 [facility] Comment on above: Performed By: #### P OCGLUC #### [facility] [address] [place] [address] Dr. Nayely Ferrer LYMPH # 1.0 103/ul Critically low 1.2-3.8 [facility] Comment on above: Performed By: #### P OCGLUC #### [facility] [address] [place] [address] Dr. Nayely Ferrer Lymphocytes/100 WBC (Bld) 9.7 % Critically low 20.5-60.0 [facility] Comment on above: Performed By: #### P OCGLUC #### [facility] [address] [place] [address] Dr. Nayely Ferrer MANUAL DIFF REQ NO Normal [facility] Comment on above: Performed By: #### P OCGLUC #### [facility] [address] [place] [address] Dr. Nayely Ferrer MCH (RBC) [Entitic mass] 29.5 pg Normal 25.9-34.0 [facility] Comment on above: Performed By: #### P OCGLUC #### [facility] [address] [place] [address] Dr. Nayely Ferrer MCHC (RBC) [Mass/Vol] 33.6 g/dL Normal 29.9-35.2 [facility] Comment on above: Performed By: #### P OCGLUC #### [facility] [address] [place] [address] Dr. Nayely Ferrer MCV (RBC) [Entitic vol] 87.6 fL Normal 80.0-94.0 [facility] Comment on above: Performed By: #### P OCGLUC #### [facility] [address] [place] [address] Dr. Nayely Ferrer MONO # 0.5 103/ul Normal 0.3-0.8 [facility] Comment on above: Performed By: #### P OCGLUC #### [facility] [address] [place] [address] Dr. Nayely Ferrer Monocytes/100 WBC (Bld) 4.9 % Normal 1.7-12.0 [facility] Comment on above: Performed By: #### P OCGLUC #### [facility] [address] [place] [address] Dr. Nayely Ferrer NEUT # 8.9 103/ul Critically high 1.4-6.5 [facility] Comment on above: Performed By: #### P OCGLUC #### [facility] [address] [place] [address] Dr. Nayely Ferrer Neutrophils/100 WBC (Bld) 83.7 % Critically high 43.0-75.0 [facility] Comment on above: Performed By: #### P OCGLUC #### [facility] [address] [place] [address] Dr. Nayely Ferrer Platelet mean volume (Bld) [Entitic vol] 9.9 fL Normal 9.5-13.5 [facility] Comment on above: Performed By: #### P OCGLUC #### [facility] [address] [place] [address] Dr. Nayely Ferrer PLT 147 103/ul Critically low 150-450 [facility] Comment on above: Performed By: #### P OCGLUC #### [facility] [address] [place] [address] Dr. Nayely Ferrer RBC 3.70 106/ul Critically low 4.70-6.10 [facility] Comment on above: Performed By: #### P OCGLUC #### [facility] [address] [address] [address] Nayely Ferrer WBC 10.7 103/ul Normal 4.0-11.0 [facility] Comment on above: Performed By: #### P OCGLUC #### [facility] [address] [address] [address] Nayely Ferrer PROF CHEM 8 (BAS METB)on Anion gap [Moles/Vol] 15.4 mmol/L Normal [facility] Comment on above: Performed By: #### P OCGLUC #### [facility] [address] [address] [address] Nayely Ferrer Calcium [Mass/Vol] 7.9 mg/dL Critically low 8.5-10.1 [facility] Comment on above: Performed By: #### P OCGLUC #### [facility] [address] [address] [address] Nayely Ferrer Chloride [Moles/Vol] 101 mmol/L Normal 98-107 [facility] Comment on above: Performed By: #### P OCGLUC #### [facility] [address] [address] [address] Nayely Ferrer CO2 [Moles/Vol] 22.0 mmol/L Normal 21.0-32.0 [facility] Comment on above: Performed By: #### P OCGLUC #### [facility] [address] [address] [address] Nayely Ferrer Creatinine [Mass/Vol] 1.42 mg/dL Critically high 0.70-1.30 [facility] Comment on above: Performed By: #### P OCGLUC #### [facility] [address] [place] [address] Dr. Nayely Ferrer EGFR-AF BRUNEIAN >60 Normal >=60 [facility] Comment on above: Performed By: #### P OCGLUC #### [facility] [address] [address] [address] Nayely Ferrer EGFR-NON AF BRUNEIAN 54 mL/min/1.73m2 Critically low >=60 [facility] Comment on above: Performed By: #### P OCGLUC #### [facility] [address] [address] [address] Nayely Ferrer Glucose [Mass/Vol] 188 mg/dL Critically high 74-106 T [facility] Comment on above: Performed By: #### P OCGLUC #### [facility] [address] [address] [address] Nayely Ferrer Potassium [Moles/Vol] 3.4 mmol/L Critically low 3.5-5.1 [facility] Comment on above: Performed By: #### P OCGLUC #### [facility] [address] [address] [address] Nayely Ferrer Sodium [Moles/Vol] 135 mmol/L Critically low 136-145 Th [facility] Comment on above: Performed By: #### P OCGLUC #### [facility] [address] [place] [address] Dr. Nayely Ferrer Urea nitrogen [Mass/Vol] 19.0 mg/dL Critically high 7.0-18.0 [facility] Comment on above: Performed By: #### P OCGLUC #### [facility] [address] [place] [address] Dr. Nayely Ferrer Urea nitrogen/Creatinine [Mass ratio] 13.4 mg/mg Normal [facility] Comment on above: Performed By: #### P OCGLUC #### [facility] [address] [place] [address] Dr. Nayely Ferrer CBC AUTO DIFFon 06-19-2022 BASO # 0.0 103/ul Normal 0.0-0.1 [facility] Comment on above: Performed By: #### P OCGLUC #### [facility] [address] [place] [address] Dr. Nayely Ferrer Basophils/100 WBC (Bld) 0.2 % Normal 0.2-2.0 [facility] Comment on above: Performed By: #### P OCGLUC #### [facility] [address] [place] [address] Dr. Nayely Ferrer EO # 0.0 103/ul Normal 0.0-0.7 [facility] Comment on above: Performed By: #### P OCGLUC #### [facility] [address] [place] [address] Dr. Nayely Ferrer Eosinophils/100 WBC (Bld) 0.4 % Critically low 0.9-7.0 [facility] Comment on above: Performed By: #### P OCGLUC #### [facility] [address] [place] [address] Dr. Nayely Ferrer Erythrocyte distribution width (RBC) [Ratio] 13.5 % Normal 11.0-15.0 [facility] Comment on above: Performed By: #### P OCGLUC #### [facility] [address] [place] [address] Dr. Nayely Ferrer Hematocrit (Bld) [Volume fraction] 35.2 % Critically low 42.0-54.0 [facility] Comment on above: Performed By: #### P OCGLUC #### [facility] [address] [place] [address] Dr. Nayely Ferrer Hemoglobin (Bld) [Mass/Vol] 11.9 g/dL Critically low 14.0-18.0 [facility] Comment on above: Performed By: #### P OCGLUC #### [facility] [address] [place] [address] Dr. Nayely Ferrer IG # 0.07 10e3/ul Critically high 0.00-0.03 [facility] Comment on above: Performed By: #### P OCGLUC #### [facility] [address] [place] [address] Dr. Nayely Ferrer IG % 0.6 % Critically high 0.0-0.5 [facility] Comment on above: Performed By: #### P OCGLUC #### [facility] [address] [place] [address] Dr. Nayely Ferrer LYMPH # 0.7 103/ul Critically low 1.2-3.8 [facility] Comment on above: Performed By: #### P OCGLUC #### [facility] [address] [place] [address] Dr. Nayely Ferrer Lymphocytes/100 WBC (Bld) 6.7 % Critically low 20.5-60.0 [facility] Comment on above: Performed By: #### P OCGLUC #### [facility] [address] [place] [address] Dr. Nayely Ferrer MANUAL DIFF REQ NO Normal [facility] Comment on above: Performed By: #### P OCGLUC #### [facility] [address] [place] [address] Dr. Nayely Ferrer MCH (RBC) [Entitic mass] 29.5 pg Normal 25.9-34.0 [facility] Comment on above: Performed By: #### P OCGLUC #### [facility] [address] [place] [address] Dr. Nayely Ferrer MCHC (RBC) [Mass/Vol] 33.8 g/dL Normal 29.9-35.2 [facility] Comment on above: Performed By: #### P OCGLUC #### [facility] [address] [place] [address] Dr. Nayely Ferrer MCV (RBC) [Entitic vol] 87.3 fL Normal 80.0-94.0 [facility] Comment on above: Performed By: #### P OCGLUC #### [facility] [address] [place] [address] Dr. Nayely Ferrer MONO # 0.6 103/ul Normal 0.3-0.8 [facility] Comment on above: Performed By: #### P OCGLUC #### [facility] [address] [place] [address] Dr. Nayely Ferrer Monocytes/100 WBC (Bld) 5.6 % Normal 1.7-12.0 [facility] Comment on above: Performed By: #### P OCGLUC #### [facility] [address] [place] [address] Dr. Nayely Ferrer NEUT # 9.6 103/ul Critically high 1.4-6.5 [facility] Comment on above: Performed By: #### P OCGLUC #### [facility] [address] [place] [address] Dr. Nayely Ferrer Neutrophils/100 WBC (Bld) 86.5 % Critically high 43.0-75.0 [facility] Comment on above: Performed By: #### P OCGLUC #### [facility] [address] [address] [address] Nayely Ferrer Platelet mean volume (Bld) [Entitic vol] 9.6 fL Normal 9.5-13.5 [facility] Comment on above: Performed By: #### P OCGLUC #### [facility] [address] [address] [address] Nayely Ferrer PLT 133 103/ul Critically low 150-450 [facility] Comment on above: Performed By: #### P OCGLUC #### [facility] [address] [address] [address] Nayely Ferrer RBC 4.03 106/ul Critically low 4.70-6.10 [facility] Comment on above: Performed By: #### P OCGLUC #### [facility] [address] [address] [address] Nayely Ferrer WBC 11.1 103/ul Critically high 4.0-11.0 [facility] Comment on above: Performed By: #### P OCGLUC #### [facility] [address] [address] [address] Nayely Ferrer CULTURE BLOODon 06-19-2022 Microscopic examination of blood, culture Culture Observations: Aerobic and Anaerobic bottles positive; BCID: E. Coli called to Emelyn Blue RN Isolate 1 Escherichia coli Growth of ORGANISM 1 Escherichia coli ANTIBIOTIC M.I.C RX STATUS Ampicillin >=32 R F Ampicillin/Sulbactam >=32 R F Piperacillin/Tazobactam 8 S F Cefazolin >=64 R F Ceftazidime 16 R F Ceftriaxone >=64 R F Ertapenem <=0.5 S F Imipenem <=0.25 S F Amikacin 4 S F Gentamicin >=16 R F Tobramycin >=16 R F Ciprofloxacin >=4 R F Levofloxacin >=8 R F Trimethoprim/Sulfamethoxazol e >=320 R F Normal [facility] Comment on above: Performed By: #### B [id number] #### [facility] [address] [place] [address] Dr. Nayely Ferrer CULTURE URINEon 06-19-2022 CULTURE URINE Isolate 1 Escherichia coli >100,000 cfu/mL of ORGANISM 1 Escherichia coli ANTIBIOTIC M.I.C RX STATUS Ampicillin >=32 R F Ampicillin/Sulbactam >=32 R F Piperacillin/Tazobactam 64 I F Cefazolin >=64 R F Ceftazidime >=64 R F Ceftriaxone >=64 R F Ertapenem <=0.5 S F Imipenem <=0.25 S F Amikacin 8 S F Gentamicin >=16 R F Tobramycin >=16 R F Ciprofloxacin >=4 R F Levofloxacin >=8 R F Nitrofurantoin <=16 S F Trimethoprim/Sulfamethoxazol e >=320 R F Normal [facility] Comment on above: Performed By: #### U RCX #### [facility] [address] [place] [address] Dr. Nayely Ferrer POINT OF CARE GLUCOSEon Glucose [Mass/Vol] 187 mg/dL Critically high [address] [place] [address] Comment on above: Performed By: #### P OCGLUC #### [facility] [address] [place] [address] Dr. Nayely Ferrer Glucose [Mass/Vol] 188 mg/dL Critically high [address] [place] [address] Comment on above: Performed By: #### P OCGLUC #### [facility] [address] [place] [address] Dr. Nayely Ferrer Glucose [Mass/Vol] 251 mg/dL Critically high [address] [place] [address] Comment on above: Performed By: #### P OCGLUC #### [facility] [address] [place] [address] Dr. Nayely Ferrer Glucose [Mass/Vol] 239 mg/dL Critically high [address] [place] [address] Comment on above: Performed By: #### P OCGLUC #### [facility] [address] [place] [address] Dr. Nayely Ferrer PROF CHEM 8 (BAS METB)on 03- 01-2023 Anion gap [Moles/Vol] 16.0 mmol/L Normal [facility] Comment on above: Performed By: #### P OCGLUC #### [facility] [address] [address] [address] Nayely Ferrer Calcium [Mass/Vol] 8.3 mg/dL Critically low 8.5-10.1 [facility] Comment on above: Performed By: #### P OCGLUC #### [facility] [address] [address] [address] Nayely Ferrer Chloride [Moles/Vol] 100 mmol/L Normal 98-107 [facility] Comment on above: Performed By: #### P OCGLUC #### [facility] [address] [place] [address] Dr. Nayely Ferrer CO2 [Moles/Vol] 21.3 mmol/L Normal 21.0-32.0 [facility] Comment on above: Performed By: #### P OCGLUC #### [facility] [address] [place] [address] Dr. Nayely Ferrer Creatinine [Mass/Vol] 1.51 mg/dL Critically high 0.70-1.30 [facility] Comment on above: Performed By: #### P OCGLUC #### [facility] [address] [place] [address] Dr. Nayely Ferrer EGFR-AF BRUNEIAN >60 Normal >=60 [facility] Comment on above: Performed By: #### P OCGLUC #### [facility] [address] [place] [address] Dr. Nayely Ferrer EGFR-NON AF BRUNEIAN 50 mL/min/1.73m2 Critically low >=60 [facility] Comment on above: Performed By: #### P OCGLUC #### [facility] [address] [address] [address] Nayely Ferrer Glucose [Mass/Vol] 237 mg/dL Critically high 74-106 [facility] Comment on above: Performed By: #### P OCGLUC #### [facility] [address] [address] [address] Nayely Ferrer Potassium [Moles/Vol] 3.3 mmol/L Critically low 3.5-5.1 [facility] Comment on above: Performed By: #### P OCGLUC #### [facility] [address] [place] [address] Dr. Nayely Ferrer Sodium [Moles/Vol] 134 mmol/L Critically low 136-145 Th [facility] Comment on above: Performed By: #### P OCGLUC #### [facility] [address] [place] [address] Dr. Nayely Ferrer Urea nitrogen [Mass/Vol] 20.0 mg/dL Critically high 7.0-18.0 [facility] Comment on above: Performed By: #### P OCGLUC #### [facility] [address] [place] [address] Dr. Nayely Ferrer Urea nitrogen/Creatinine [Mass ratio] 13.2 mg/mg Normal [facility] Comment on above: Performed By: #### P OCGLUC #### [facility] [address] [place] [address] Dr. Nayely Ferrer CBC AUTO DIFFon 06-18-2022 BASO # 0.0 103/ul Normal 0.0-0.1 [facility] Comment on above: Performed By: #### P OCGLUC #### [facility] [address] [place] [address] Dr. Nayely Ferrer Basophils/100 WBC (Bld) 0.3 % Normal 0.2-2.0 [facility] Comment on above: Performed By: #### P OCGLUC #### [facility] [address] [place] [address] Dr. Nayely Ferrer EO # 0.0 103/ul Normal 0.0-0.7 [facility] Comment on above: Performed By: #### P OCGLUC #### [facility] [address] [place] [address] Dr. Nayely Ferrer Eosinophils/100 WBC (Bld) 0.1 % Critically low 0.9-7.0 [facility] Comment on above: Performed By: #### P OCGLUC #### [facility] [address] [place] [address] Dr. Nayely Ferrer Erythrocyte distribution width (RBC) [Ratio] 13.4 % Normal 11.0-15.0 [facility] Comment on above: Performed By: #### P OCGLUC #### [facility] [address] [place] [address] Dr. Nayely Ferrer Hematocrit (Bld) [Volume fraction] 33.0 % Critically low 42.0-54.0 [facility] Comment on above: Performed By: #### P OCGLUC #### [facility] [address] [place] [address] Dr. Nayely Ferrer Hemoglobin (Bld) [Mass/Vol] 11.4 g/dL Critically low 14.0-18.0 [facility] Comment on above: Performed By: #### P OCGLUC #### [facility] [address] [place] [address] Dr. Nayely Ferrer IG # 0.06 10e3/ul Critically high 0.00-0.03 [facility] Comment on above: Performed By: #### P OCGLUC #### [facility] [address] [place] [address] Dr. Nayely Ferrer IG % 0.5 % Normal 0.0-0.5 [facility] Comment on above: Performed By: #### P OCGLUC #### [facility] [address] [place] [address] Dr. Nayely Ferrer LYMPH # 0.8 103/ul Critically low 1.2-3.8 [facility] Comment on above: Performed By: #### P OCGLUC #### [facility] [address] [place] [address] Dr. Nayely Ferrer Lymphocytes/100 WBC (Bld) 6.7 % Critically low 20.5-60.0 [facility] Comment on above: Performed By: #### P OCGLUC #### [facility] [address] [place] [address] Dr. Nayely Ferrer MANUAL DIFF REQ NO Normal [facility] Comment on above: Performed By: #### P OCGLUC #### [facility] [address] [place] [address] Dr. Nayely Ferrer MCH (RBC) [Entitic mass] 29.9 pg Normal 25.9-34.0 [facility] Comment on above: Performed By: #### P OCGLUC #### [facility] [address] [place] [address] Dr. Nayely Ferrer MCHC (RBC) [Mass/Vol] 34.5 g/dL Normal 29.9-35.2 [facility] Comment on above: Performed By: #### P OCGLUC #### [facility] [address] [address] [address] Nayely Ferrer MCV (RBC) [Entitic vol] 86.6 fL Normal 80.0-94.0 [facility] Comment on above: Performed By: #### P OCGLUC #### [facility] [address] [place] [address] Dr. Nayely Ferrer MONO # 0.7 103/ul Normal 0.3-0.8 [facility] Comment on above: Performed By: #### P OCGLUC #### [facility] [address] [place] [address] Dr. Nayely Ferrer Monocytes/100 WBC (Bld) 5.6 % Normal 1.7-12.0 [facility] Comment on above: Performed By: #### P OCGLUC #### [facility] [address] [place] [address] Dr. Nayely Ferrer NEUT # 10.4 103/ul Critically high 1.4-6.5 [facility] Comment on above: Performed By: #### P OCGLUC #### [facility] [address] [place] [address] Dr. Nayely Ferrer Neutrophils/100 WBC (Bld) 86.8 % Critically high 43.0-75.0 [facility] Comment on above: Performed By: #### P OCGLUC #### [facility] [address] [place] [address] Dr. Nayely Ferrer Platelet mean volume (Bld) [Entitic vol] 9.6 fL Normal 9.5-13.5 [facility] Comment on above: Performed By: #### P OCGLUC #### [facility] [address] [place], [place] [id number] Dr. Nayely Ferrer PLT 113 103/ul Critically low 150-450 [facility] Comment on above: Performed By: #### P OCGLUC #### [facility] [address] [place] [address] Dr. Nayely Ferrer RBC 3.81 106/ul Critically low 4.70-6.10 [facility] Comment on above: Performed By: #### P OCGLUC #### [facility] [address] [place] [address] Dr. Nayely Ferrer WBC 12.0 103/ul Critically high 4.0-11.0 [facility] Comment on above: Performed By: #### P OCGLUC #### [facility] [address] [place] [address] Dr. Nayely Ferrer CULTURE BLOODon 06-18-2022 Microscopic examination of blood, culture Culture Observations: NO GROWTH AT 5 DAYS. Isolate 1 [id number] Normal [facility] Comment on above: Performed By: #### B [id number] #### [facility] [address] [place] [address] Dr. Nayely Ferrer OCC BLD IMMUNOASSAYon 2022 OCCULT BLOOD Positive Abnormal NEGATIVE [facility] Comment on above: Performed By: #### P OCGLUC #### [facility] [address] [place] [address] Dr. Nayely Ferrer POINT OF CARE GLUCOSEon 05-23 Glucose [Mass/Vol] 233 mg/dL Critically high 74-106 [facility] Comment on above: Performed By: #### P OCGLUC #### [facility] [address] [place] [address] Dr. Nayely Ferrer Glucose [Mass/Vol] 260 mg/dL Critically high 74-106 [facility] Comment on above: Performed By: #### P OCGLUC #### [facility] [address] [place] [address] Dr. Nayely Ferrer Glucose [Mass/Vol] 223 mg/dL Critically high 74-106 [facility] Comment on above: Performed By: #### P OCGLUC #### [facility] [address] [address] [address] Nayely Ferrer Glucose [Mass/Vol] 266 mg/dL Critically high 74-106 T [facility] Comment on above: Performed By: #### P OCGLUC #### [facility] [address] [address] [address] Nayely Ferrer PROF CHEM 8 (BAS METB)on Anion gap [Moles/Vol] 14.4 mmol/L Normal [facility] Comment on above: Performed By: #### P OCGLUC #### [facility] [address] [address] [address] Nayely Ferrer Calcium [Mass/Vol] 8.1 mg/dL Critically low 8.5-10.1 Th [facility] Comment on above: Performed By: #### P OCGLUC #### [facility] [address] [address] [address] Nayely Ferrer Chloride [Moles/Vol] 100 mmol/L Normal 98-107 [facility] Comment on above: Performed By: #### P OCGLUC #### [facility] [address] [address] [address] Nayely Ferrer CO2 [Moles/Vol] 21.9 mmol/L Normal 21.0-32.0 [facility] Comment on above: Performed By: #### P OCGLUC #### [facility] [address] [address] [address] Nayely Ferrer Creatinine [Mass/Vol] 1.43 mg/dL Critically high 0.70-1.30 [facility] Comment on above: Performed By: #### P OCGLUC #### [facility] [address] [address] [address] Nayely Ferrer EGFR-AF BRUNEIAN >60 Normal >=60 [facility] Comment on above: Performed By: #### P OCGLUC #### [facility] [address] [address] [address] Nayely Ferrer EGFR-NON AF BRUNEIAN 53 mL/min/1.73m2 Critically low >=60 [facility] Comment on above: Performed By: #### P OCGLUC #### [facility] [address] [address] [address] Nayely Ferrer Glucose [Mass/Vol] 264 mg/dL Critically high 74-106 T [facility] Comment on above: Performed By: #### P OCGLUC #### [facility] [address] [address] [address] Nayely Ferrer Potassium [Moles/Vol] 3.3 mmol/L Critically low 3.5-5.1 [facility] Comment on above: Performed By: #### P OCGLUC #### [facility] [address] [address] [address] Nayely Ferrer Sodium [Moles/Vol] 133 mmol/L Critically low 136-145 Th [facility] Comment on above: Performed By: #### P OCGLUC #### [facility] [address] [place] [address] Dr. Nayely Ferrer Urea nitrogen [Mass/Vol] 18.0 mg/dL Normal 7.0-18.0 [facility] Comment on above: Performed By: #### P OCGLUC #### [facility] [address] [address] [address] Nayely Ferrer Urea nitrogen/Creatinine [Mass ratio] 12.6 mg/mg Normal [facility] Comment on above: Performed By: #### P OCGLUC #### [facility] [address] [place] [address] Dr. Nayely Ferrer CBC AUTO DIFFon 06-17-2022 BASO # 0.0 103/ul Normal 0.0-0.1 [facility] Comment on above: Performed By: #### P OCGLUC #### [facility] [address] [address] [address] Nayely Ferrer Basophils/100 WBC (Bld) 0.3 % Normal 0.2-2.0 [facility] Comment on above: Performed By: #### P OCGLUC #### [facility] [address] [address] [address] Nayely Ferrer EO # 0.1 103/ul Normal 0.0-0.7 [facility] Comment on above: Performed By: #### P OCGLUC #### [facility] [address] [address] [address] Nayely Ferrer Eosinophils/100 WBC (Bld) 0.9 % Normal 0.9-7.0 [facility] Comment on above: Performed By: #### P OCGLUC #### [facility] [address] [address] [address] Nayely Ferrer Erythrocyte distribution width (RBC) [Ratio] 13.2 % Normal 11.0-15.0 [facility] Comment on above: Performed By: #### P OCGLUC #### [facility] [address] [place] [address] Dr. Nayely Ferrer Hematocrit (Bld) [Volume fraction] 37.1 % Critically low 42.0-54.0 [facility] Comment on above: Performed By: #### P OCGLUC #### [facility] [address] [place] [address] Dr. Nayely Ferrer Hemoglobin (Bld) [Mass/Vol] 12.5 g/dL Critically low 14.0-18.0 [facility] Comment on above: Performed By: #### P OCGLUC #### [facility] [address] [place] [address] Dr. Nayely Ferrer IG # 0.16 10e3/ul Critically high 0.00-0.03 [facility] Comment on above: Performed By: #### P OCGLUC #### [facility] [address] [place] [address] Dr. Nayely Ferrer IG % 1.1 % Critically high 0.0-0.5 [facility] Comment on above: Performed By: #### P OCGLUC #### [facility] [address] [place] [address] Dr. Nayely Ferrer LYMPH # 0.8 103/ul Critically low 1.2-3.8 [facility] Comment on above: Performed By: #### P OCGLUC #### [facility] [address] [place] [address] Dr. Nayely Ferrer Lymphocytes/100 WBC (Bld) 5.5 % Critically low 20.5-60.0 [facility] Comment on above: Performed By: #### P OCGLUC #### [facility] [address] [address] [address] Nayely Ferrer MANUAL DIFF REQ NO Normal [facility] Comment on above: Performed By: #### P OCGLUC #### [facility] [address] [place] [address] Dr. Nayely Ferrer MCH (RBC) [Entitic mass] 29.5 pg Normal 25.9-34.0 [facility] Comment on above: Performed By: #### P OCGLUC #### [facility] [address] [place] [address] Dr. Nayely Ferrer MCHC (RBC) [Mass/Vol] 33.7 g/dL Normal 29.9-35.2 [facility] Comment on above: Performed By: #### P OCGLUC #### [facility] [address] [place] [address] Dr. Nayely Ferrer MCV (RBC) [Entitic vol] 87.5 fL Normal 80.0-94.0 [facility] Comment on above: Performed By: #### P OCGLUC #### [facility] [address] [place] [address] Dr. Nayely Ferrer MONO # 0.8 103/ul Normal 0.3-0.8 [facility] Comment on above: Performed By: #### P OCGLUC #### [facility] [address] [place] [address] Dr. Nayely Ferrer Monocytes/100 WBC (Bld) 5.3 % Normal 1.7-12.0 [facility] Comment on above: Performed By: #### P OCGLUC #### [facility] [address] [place] [address] Dr. Nayely Ferrer NEUT # 12.7 103/ul Critically high 1.4-6.5 [facility] Comment on above: Performed By: #### P OCGLUC #### [facility] [address] [place] [address] Dr. Nayely Ferrer Neutrophils/100 WBC (Bld) 86.9 % Critically high 43.0-75.0 [facility] Comment on above: Performed By: #### P OCGLUC #### [facility] [address] [address] [address] Nayely Ferrer Platelet mean volume (Bld) [Entitic vol] 9.6 fL Normal 9.5-13.5 [facility] Comment on above: Performed By: #### P OCGLUC #### [facility] [address] [address] [address] Nayely Ferrer PLT 133 103/ul Critically low 150-450 [facility] Comment on above: Performed By: #### P OCGLUC #### [facility] [address] [address] [address] Nayely Ferrer RBC 4.24 106/ul Critically low 4.70-6.10 [facility] Comment on above: Performed By: #### P OCGLUC #### [facility] [address] [place] [address] Dr. Nayely Ferrer WBC 14.7 103/ul Critically high 4.0-11.0 [facility] Comment on above: Performed By: #### P OCGLUC #### [facility] [address] [address] [address] Nayely Ferrer DRUG SCREEN RAPID (URINE)on 06-17-2022 AMP Negative Normal NEGATIVE [facility] Comment on above: Performed By: #### P OCGLUC #### [facility] [address] [address] [address] Nayely Ferrer BAR Negative Normal NEGATIVE [facility] Comment on above: Performed By: #### P OCGLUC #### [facility] [address] [address] [address] Nayely Ferrer BUP Negative Normal NEGATIVE [facility] Comment on above: Performed By: #### P OCGLUC #### [facility] [address] [address] [address] Nayely Ferrer BZO Negative Normal NEGATIVE [facility] Comment on above: Performed By: #### P OCGLUC #### [facility] [address] [address] [address] Nayely Ferrer JOSE MANUEL Negative Normal NEGATIVE [facility] Comment on above: Performed By: #### P OCGLUC #### [facility] [address] [place] [address] Dr. Nayely Ferrer CUT-OFFS SEE BELOW Normal [facility] Comment on above: Result Comment: AMP (Amphetamine): 500ng/mL, BAR (Barbituates): 200 ng/mL, BZO (Benzodiazepines): 150 ng/mL, BUP (Buprenorphine): 10 ng/mL, JOSE MANUEL (Cocaine): 150 ng/mL, mAMP (Methamphetamine): 500 ng/mL, MTD (Methadone): 200 ng/mL, OPI (Opiates): 100 ng/mL, OXY (Oxycodone): 100 ng/mL, PCP (Phencyclidine): 25 ng/mL, PPX (Propoxyphene): 300 ng/mL, THC (Cannabinoids): 50 ng/mL, TCA (Trycyclic Antidepressants): 300 ng/mL Performed By: #### P OCGLUC #### [facility] [address] [place] [address] Dr. Nayely Ferrer DRUG CUT HEADER DRUG CLASS TEST SYST EM CUT-OFF CONCENTRATIONS ARE FOLLOWS: Normal [facility] Comment on above: Performed By: #### P OCGLUC #### [facility] [address] [place] [address] Dr. Nayely Ferrer mAMP Negative Normal NEGATIVE [facility] Comment on above: Performed By: #### P OCGLUC #### [facility] [address] [place] [address] Dr. Nayely Ferrer MTD Negative Normal NEGATIVE [facility] Comment on above: Performed By: #### P OCGLUC #### [facility] [address] [place] [address] Dr. Nayely Ferrer OPI Negative Normal NEGATIVE [facility] Comment on above: Performed By: #### P OCGLUC #### [facility] [address] [place] [address] Dr. Nayely Ferrer OXY Negative Normal NEGATIVE [facility] Comment on above: Performed By: #### P OCGLUC #### [facility] [address] [place] [address] Dr. Nayely Ferrer PCP Negative Normal NEGATIVE [facility] Comment on above: Performed By: #### P OCGLUC #### [facility] [address] [address] [address] Nayely Ferrer PPX Negative Normal NEGATIVE [facility] Comment on above: Performed By: #### P OCGLUC #### [facility] [address] [address] [address] Nayely Ferrer TCA Negative Normal NEGATIVE [facility] Comment on above: Performed By: #### P OCGLUC #### [facility] [address] [address] [address] Nayely Ferrer THC Negative Normal NEGATIVE [facility] Comment on above: Performed By: #### P OCGLUC #### [facility] [address] [place] [address] Dr. Nayely Ferrer GENTAMICIN RANDOMon 06-17-19 23 GENTAMICIN 3.6 ug/mL Normal [facility] Comment on above: Performed By: #### P OCGLUC #### [facility] [address] [place] [address] Dr. Nayely Ferrer POINT OF CARE GLUCOSEon 05-23 Glucose [Mass/Vol] 307 mg/dL Critically high -106 [facility] Comment on above: Performed By: #### P OCGLUC #### [facility] [address] [address] [address] Nayely Ferrer Glucose [Mass/Vol] 290 mg/dL Critically high -106 [facility] Comment on above: Performed By: #### P OCGLUC #### [facility] [address] [place] [address] Dr. Nayely Ferrer Glucose [Mass/Vol] 287 mg/dL Critically high -106 [facility] Comment on above: Performed By: #### P OCGLUC #### [facility] [address] [place] [address] Dr. Nayely Ferrer PROF CHEM 8 (BAS METB)on Anion gap [Moles/Vol] 15.4 mmol/L Normal [facility] Comment on above: Performed By: #### P OCGLUC #### [facility] [address] [place] [address] Dr. Nayely Ferrer Calcium [Mass/Vol] 8.2 mg/dL Critically low 8.5-10.1 Th e [facility] Comment on above: Performed By: #### P OCGLUC #### [facility] [address] [address] [address] Nayely Ferrer Chloride [Moles/Vol] 97 mmol/L Critically low 98-107 [facility] Comment on above: Performed By: #### P OCGLUC #### [facility] [address] [address] [address] Nayely Ferrer CO2 [Moles/Vol] 23.2 mmol/L Normal 21.0-32.0 [facility] Comment on above: Performed By: #### P OCGLUC #### [facility] [address] [place] [address] Dr. Nayely Ferrer Creatinine [Mass/Vol] 1.36 mg/dL Critically high 0.70-1.30 [facility] Comment on above: Performed By: #### P OCGLUC #### [facility] [address] [address] [address] Nayely Ferrer EGFR-AF BRUNEIAN >60 Normal >=60 [facility] Comment on above: Performed By: #### P OCGLUC #### [facility] [address] [address] [address] Nayely Ferrer EGFR-NON AF BRUNEIAN 57 mL/min/1.73m2 Critically low >=60 [facility] Comment on above: Performed By: #### P OCGLUC #### [facility] [address] [address] [address] Nayely Ferrer Glucose [Mass/Vol] 283 mg/dL Critically high 74-106 [facility] Comment on above: Performed By: #### P OCGLUC #### [facility] [address] [address] [address] Nayely Ferrer Potassium [Moles/Vol] 3.6 mmol/L Normal 3.5-5.1 [facility] Comment on above: Performed By: #### P OCGLUC #### [facility] [address] [address] [address] Nayely Ferrer Sodium [Moles/Vol] 132 mmol/L Critically low 136-145 Th e [facility] Comment on above: Performed By: #### P OCGLUC #### [facility] [address] [place] [address] Dr. Nayely Ferrer Urea nitrogen [Mass/Vol] 15.0 mg/dL Normal 7.0-18.0 [facility] Comment on above: Performed By: #### P OCGLUC #### [facility] [address] [place] [address] Dr. Naeyly Ferrer Urea nitrogen/Creatinine [Mass ratio] 11.0 mg/mg Normal [facility] Comment on above: Performed By: #### P OCGLUC #### [facility] [address] [place] [address] Dr. Nayely Ferrer BLOOD CULTURE ID PANELon A. baumannii Not detected Normal NOT DETECTED [facility] Comment on above: Performed By: #### P OCGLUC #### [facility] [address] [place] [address] Dr. Nayely Ferrer Bacteriodes fragilis Not detected Normal NOT DETECTED [facility] Comment on above: Performed By: #### P OCGLUC #### [facility] [address] [place] [address] Dr. Nayely Ferrer BCID CONTROLS PASSED Normal [facility] Comment on above: Performed By: #### P OCGLUC #### [facility] [address] [place] [address] Dr. Nayely Ferrer BCIDBTHD BLOOD CULTURE BOTTLE INFORMATION Normal [facility] Comment on above: Performed By: #### P OCGLUC #### [facility] [address] [place] [address] Dr. Nayely Ferrer BCIDHD1 ANTIMICROBIAL RESIST ANCE GENES Normal [facility] Comment on above: Performed By: #### P OCGLUC #### [facility] [address] [place] [address] Dr. Nayely Ferrer BCIDHD2 SEE BELOW [facility] Comment on above: Result Comment: Note : Antimicrobial resitance can occur via multiple mechanisms. A Not Detected result for the [employer] antomicrobial resistance gene assays does not indicate antimicrobial susceptibility. Subculturing is required for species identification and susceptibility testing of isolates. Performed By: #### P OCGLUC #### [facility] [address] [place] [address] Dr. Nayely Ferrer BCIDHD3 Positive Normal [facility] Comment on above: Performed By: #### P OCGLUC #### [facility] [address] [place] [address] Dr. Nayely Ferrer BCIDHD4 Negative Normal [facility] Comment on above: Performed By: #### P OCGLUC #### [facility] [address] [place] [address] Dr. Nayely Ferrer BCIDHD5 YEAST Normal [facility] Comment on above: Performed By: #### P OCGLUC #### [facility] [address] [place] [address] Dr. Nayely Ferrer Bottle Set: Set 1 Normal [facility] Comment on above: Performed By: #### P OCGLUC #### [facility] [address] [place] [address] Dr. Nayely Ferrer Bottle: Aerobic Normal [facility] Comment on above: Performed By: #### P OCGLUC #### [facility] [address] [place] [address] Dr. Nayely Ferrer C. neoformans/gattii Not detected Normal NOT DETECTED [facility] Comment on above: Performed By: #### P OCGLUC #### [facility] [address] [place] [address] Dr. Nayely Ferrer Cindy albicans Not detected Normal NOT DETECTED [facility] Comment on above: Performed By: #### P OCGLUC #### [facility] [address] [place] [address] Dr. Nayely Ferrer Cindy auris Not detected Normal NOT DETECTED [facility] Comment on above: Performed By: #### P OCGLUC #### [facility] [address] [place] [address] Dr. Nayely Ferrer Cindy glabrata Not detected Normal NOT DETECTED [facility] Comment on above: Performed By: #### P OCGLUC #### [facility] [address] [place] [address] Dr. Nayely Ferrer Cindy Krusei Not detected Normal NOT DETECTED [facility] Comment on above: Performed By: #### P OCGLUC #### [facility] [address] [place] [address] Dr. Nayely Ferrer Cindy Parapsilosis Not detected Normal NOT DETECTED [facility] Comment on above: Performed By: #### P OCGLUC #### [facility] [address] [place] [address] Dr. Nayely Ferrer Cindy Tropicalis Not detected Normal NOT DETECTED [facility] Comment on above: Performed By: #### P OCGLUC #### [facility] [address] [place] [address] Dr. Nayely Ferrer CTX-M Resistant Gene Detected Abnormal NOT DETECTED [facility] Comment on above: Performed By: #### P OCGLUC #### [facility] [address] [place] [address] Dr. Nayely Ferrer E. Cloacae complex Not detected Normal NOT DETECTED [facility] Comment on above: Performed By: #### P OCGLUC #### [facility] [address] [place] [address] Dr. Nayely Ferrer E. faecalis Not detected Normal NOT DETECTED [facility] Comment on above: Performed By: #### P OCGLUC #### [facility] [address] [place] [address] Dr. Nayely Ferrer E. faecium Not detected Normal NOT DETECTED [facility] Comment on above: Performed By: #### P OCGLUC #### [facility] [address] [place] [address] Dr. Nayely Ferrer Enterobacteriaceae Detected Critically abnormal NOT DETECTED [facility] Comment on above: Performed By: #### P OCGLUC #### [facility] [address] [place] [address] Dr. Nayely Ferrer Escherichia coli Detected Critically abnormal NOT DETECTED [facility] Comment on above: Performed By: #### P OCGLUC #### [facility] [address] [place] [address] Dr. Nayely Ferrer H. influenzae Not detected Normal NOT DETECTED [facility] Comment on above: Performed By: #### P OCGLUC #### [facility] [address] [place] [address] Dr. Nayely Ferrer IMP Resistant Gene Not detected Normal NOT DETECTED [facility] Comment on above: Performed By: #### P OCGLUC #### [facility] [address] [place] [address] Dr. Nayely Ferrer K. oxytoca Not detected Normal NOT DETECTED [facility] Comment on above: Performed By: #### P OCGLUC #### [facility] [address] [place] [address] Dr. Nayely Ferrer K. pneumoniae Not detected Normal NOT DETECTED [facility] Comment on above: Performed By: #### P OCGLUC #### [facility] [address] [place] [address] Dr. Nayely Ferrer Klebsiella aerogenes Not detected Normal NOT DETECTED [facility] Comment on above: Performed By: #### P OCGLUC #### [facility] [address] [place] [address] Dr. Nayely Ferrer KPC Resistant Gene Not detected Normal NOT DETECTED [facility] Comment on above: Performed By: #### P OCGLUC #### [facility] [address] [place] [address] Dr. Nayely Ferrer List. monocytogenes Not detected Normal NOT DETECTED [facility] Comment on above: Performed By: #### P OCGLUC #### [facility] [address] [place] [address] Dr. Nayely Ferrer Mcr-1 Resistant Gene Not detected Normal NOT DETECTED [facility] Comment on above: Performed By: #### P OCGLUC #### [facility] [address] [place] [address] Dr. Nayely Ferrer mecA/C Not Applicable Normal NOT DETECTED [facility] Comment on above: Performed By: #### P OCGLUC #### [facility] [address] [place] [address] Dr. Nayely Ferrer mecA/C MREJ Not Applicable Normal NOT DETECTED [facility] Comment on above: Performed By: #### P OCGLUC #### [facility] [address] [place] [address] Dr. Nayely Ferrer N. meningitidis Not detected Normal NOT DETECTED [facility] Comment on above: Performed By: #### P OCGLUC #### [facility] [address] [place] [address] Dr. Nayely Ferrer NDM Resistant Gene Not detected Normal NOT DETECTED [facility] Comment on above: Performed By: #### P OCGLUC #### [facility] [address] [place] [address] Dr. Nayely Ferrer Oxa-48-like Not detected Normal NOT DETECTED [facility] Comment on above: Performed By: #### P OCGLUC #### [facility] [address] [place] [address] Dr. Nayely Ferrer Proteus Not detected Normal NOT DETECTED [facility] Comment on above: Performed By: #### P OCGLUC #### [facility] [address] [place] [address] Dr. Nayely Ferrer Pseud. aeruginosa Not detected Normal NOT DETECTED [facility] Comment on above: Performed By: #### P OCGLUC #### [facility] [address] [place] [address] Dr. Nayely Ferrer S. maltophilia Not detected Normal NOT DETECTED [facility] Comment on above: Performed By: #### P OCGLUC #### [facility] [address] [place] [address] Dr. Nayely Ferrer Salmonella Not detected Normal NOT DETECTED [facility] Comment on above: Performed By: #### P OCGLUC #### [facility] [address] [place] [address] Dr. Nayely Ferrer Seratia marcescens Not detected Normal NOT DETECTED [facility] Comment on above: Performed By: #### P OCGLUC #### [facility] [address] [place] [address] Dr. Nayely Ferrer Site: Lt Wrist Normal [facility] Comment on above: Performed By: #### P OCGLUC #### [facility] [address] [place] [address] Dr. Nayely Ferrer Staph. aureus Not detected Normal NOT DETECTED [facility] Comment on above: Performed By: #### P OCGLUC #### [facility] [address] [place] [address] Dr. Nayely Ferrer Staph. epidermidis Not detected Normal NOT DETECTED [facility] Comment on above: Performed By: #### P OCGLUC #### [facility] [address] [place] [address] Dr. Nayely Ferrer Staph. lugdunensis Not detected Normal NOT DETECTED [facility] Comment on above: Performed By: #### P OCGLUC #### [facility] [address] [place] [address] Dr. Nayely Ferrer Staphylococcus Not detected Normal NOT DETECTED [facility] Comment on above: Performed By: #### P OCGLUC #### [facility] [address] [place] [address] Dr. Nayely Ferrer Strep. agalactiae Not detected Normal NOT DETECTED [facility] Comment on above: Performed By: #### P OCGLUC #### [facility] [address] [place] [address] Dr. Nayely Ferrer Strep. pneumoniae Not detected Normal NOT DETECTED [facility] Comment on above: Performed By: #### P OCGLUC #### [facility] [address] [place] [address] Dr. Nayely Ferrer Strep. pyogenes Not detected Normal NOT DETECTED [facility] Comment on above: Performed By: #### P OCGLUC #### [facility] [address] [place] [address] Dr. Nayely Ferrer Streptococcus Not detected Normal NOT DETECTED [facility] Comment on above: Performed By: #### P OCGLUC #### [facility] [address] [place] [address] Dr. Nayely Ferrer [place]/B Resist. Gene Not Applicable Normal NOT DETECTED [facility] Comment on above: Performed By: #### P OCGLUC #### [facility] [address] [place] [address] Dr. Nayely Ferrer VIM Resistant Gene Not detected Normal NOT DETECTED [facility] Comment on above: Performed By: #### P OCGLUC #### [facility] [address] [address] [address] Nayely Ferrer CBC AUTO DIFFon 06-16-2022 BASO # 0.1 103/ul Normal 0.0-0.1 [facility] Comment on above: Performed By: #### P OCGLUC #### [facility] [address] [place] [address] Dr. Nayely Ferrer Basophils/100 WBC (Bld) 0.3 % Normal 0.2-2.0 [facility] Comment on above: Performed By: #### P OCGLUC #### [facility] [address] [place] [address] Dr. Nayely Ferrer EO # 0.0 103/ul Normal 0.0-0.7 [facility] Comment on above: Performed By: #### P OCGLUC #### [facility] [address] [place] [address] Dr. Nayely Ferrer Eosinophils/100 WBC (Bld) 0.0 % Critically low 0.9-7.0 [facility] Comment on above: Performed By: #### P OCGLUC #### [facility] [address] [place] [address] Dr. Nayely Ferrer Erythrocyte distribution width (RBC) [Ratio] 13.2 % Normal 11.0-15.0 [facility] Comment on above: Performed By: #### P OCGLUC #### [facility] [address] [place] [address] Dr. Nayely Ferrer Hematocrit (Bld) [Volume fraction] 40.3 % Critically low 42.0-54.0 [facility] Comment on above: Performed By: #### P OCGLUC #### [facility] [address] [place] [address] Dr. Nayely Ferrer Hemoglobin (Bld) [Mass/Vol] 14.0 g/dL Normal 14.0-18.0 [facility] Comment on above: Performed By: #### P OCGLUC #### [facility] [address] [place] [address] Dr. Nayely Ferrer IG # 0.18 10e3/ul Critically high 0.00-0.03 [facility] Comment on above: Performed By: #### P OCGLUC #### [facility] [address] [address] [address] Nayely Ferrer IG % 1.0 % Critically high 0.0-0.5 [facility] Comment on above: Performed By: #### P OCGLUC #### [facility] [address] [address] [address] Nayely Ferrer LYMPH # 0.8 103/ul Critically low 1.2-3.8 [facility] Comment on above: Performed By: #### P OCGLUC #### [facility] [address] [address] [address] Nayely Ferrer Lymphocytes/100 WBC (Bld) 4.3 % Critically low 20.5-60.0 [facility] Comment on above: Performed By: #### P OCGLUC #### [facility] [address] [place] [address] Dr. Nayely Ferrer MANUAL DIFF REQ NO Normal [facility] Comment on above: Performed By: #### P OCGLUC #### [facility] [address] [place] [address] Dr. Nayely Ferrer MCH (RBC) [Entitic mass] 29.7 pg Normal 25.9-34.0 [facility] Comment on above: Performed By: #### P OCGLUC #### [facility] [address] [place] [address] Dr. Nayely Ferrer MCHC (RBC) [Mass/Vol] 34.7 g/dL Normal 29.9-35.2 [facility] Comment on above: Performed By: #### P OCGLUC #### [facility] [address] [place] [address] Dr. Nayely Ferrer MCV (RBC) [Entitic vol] 85.6 fL Normal 80.0-94.0 [facility] Comment on above: Performed By: #### P OCGLUC #### [facility] [address] [place] [address] Dr. Nayely Ferrer MONO # 0.8 103/ul Normal 0.3-0.8 [facility] Comment on above: Performed By: #### P OCGLUC #### [facility] [address] [address] [address] Nayely Ferrer Monocytes/100 WBC (Bld) 4.7 % Normal 1.7-12.0 [facility] Comment on above: Performed By: #### P OCGLUC #### [facility] [address] [address] [address] Nayely Ferrer NEUT # 15.7 103/ul Critically high 1.4-6.5 [facility] Comment on above: Performed By: #### P OCGLUC #### [facility] [address] [place] [address] Dr. Nayely Ferrer Neutrophils/100 WBC (Bld) 89.7 % Critically high 43.0-75.0 [facility] Comment on above: Performed By: #### P OCGLUC #### [facility] [address] [place] [address] Dr. Nayely Ferrer Platelet mean volume (Bld) [Entitic vol] 9.6 fL Normal 9.5-13.5 [facility] Comment on above: Performed By: #### P OCGLUC #### [facility] [address] [place] [address] Dr. Nayely Ferrer PLT 153 103/ul Normal 150-450 [facility] Comment on above: Performed By: #### P OCGLUC #### [facility] [address] [place] [address] Dr. Nayely Ferrer RBC 4.71 106/ul Normal 4.70-6.10 [facility] Comment on above: Performed By: #### P OCGLUC #### [facility] [address] [place] [address] Dr. Nayely Ferrer WBC 17.5 103/ul Critically high 4.0-11.0 [facility] Comment on above: Performed By: #### P OCGLUC #### [facility] [address] [place] [address] ABD/PELVIS WO CONon 06-16 CT ABD/PELVIS WO CON CLINICAL HISTORY: F ever. Blood in urine, fever, chills, weakness. EXAMINATION: Unenhanced CT scan of the abdomen and pelvis: 06/16/2022. COMPARISON: Enhancement CT scan of the abdomen and pelvis: 06/07/2021. TECHNIQUE: 3 mm axial images from lung bases through ischial without intravenous or oral contrast were obtained. Sagittal, coronal reconstructions were performed. CT dose reduction technique was used, including Automated Exposure Control. FINDINGS: There are no focal abnormalities of the visualized lung bases. The heart size seems normal. There are no filling defects in the cardiac chambers. CT ABDOMEN: The liver is enlarged, measuring approximately 24.3 cm in craniocaudal dimension with diffuse fatty infiltration of liver. There is cholelithiasis. The spleen measures approximately 14.8 cm in craniocaudal dimensions without focal abnormalities. The pancreas, adrenal glands, appear normal. There is asymmetric perinephric fat stranding slightly more so involving the left kidney than the right kidney with mild edematous appearance to the left kidney. However there is no hydronephrosis, or nephrolithiasis involving the left or the right kidney. The abdominal aorta has normal caliber. There is no retroperitoneal or mesenteric adenopathy. The bowel loops are of normal caliber. CT PELVIS: There is some haziness along the left ureter as it courses inferiorly to the pelvis however there is no ureterolithiasis either on the right or the left side. The bladder seems normal. Prostate, seminal vesicles appeared normal. There is no pelvic adenopathy. The visualized osseous structures seem normal. IMPRESSION: 1. Asymmetric perinephric fat stranding left greater than right as well as some haziness along the ureter on the left, concerning for ureteritis/pyelonephritis. Recently passed calculus would be the differential consideration. There is no hydronephrosis, nephro or ureterolithiasis otherwise. 2. Hepatosplenomegaly with fatty infiltration of the liver, stable. 3. Cholelithiasis but no acute cholecystitis. Electronically authenticated by: ASIA BAXTER Date: 2022-06-16 20:11 Normal [facility] CULTURE BLOODon 06-16-2022 Microscopic examination of blood, culture Culture Observations: Aerobic bottle positive; BCID: E. Coli called to Emelyn Blue RN Culture Observations: Refer to accession #[id number] for susceptibilities Culture Observations: NO GROWTH IN ANAEROBIC BOTTLE AT 5 DAYS. Isolate 1 [id number] Growth of Normal [facility] Comment on above: Performed By: #### B [id number] #### [facility] [address] [place] [address] Dr. Nayely Ferrer Covid-19 PCR ([facility])on 05-23 SARS-CoV-2 (COVID-19) RNA JOSIE+probe Ql (Unsp spec) Not detected Normal NOT DETECTED [facility] Comment on above: Result Comment: When diagnostic testing is negative, the possibility of a false negative should be considered in the context of a patient's recent exposures and the presence of clinical signs and symptoms consistent with SARS-CoV-2. This test is not yet approved or cleared by the [place] FDA. When there are no FDA-approved or cleared tests available, and other criteria are met, FDA can make tests available under an emergency access mechanism called an Emergency Use Authorization (EUA). The EUA for this test is supported by the Policy Director of Health and Human Service's declaration that circumstances exist to justify the emergency use of in vitro diagnostics for the detection and/or diagnosis of the virus that causes COVID-19. This EUA will remain in effect for the duration of the COVID-19 declaration justifying emergency of IVDs, unless it is terminated or revoked by the FDA (after which the test may no longer be used). Performed By: #### P OCGLUC #### [facility] [address] [place] [address] Dr. Nayely Ferrer ER URINE PROFILEon 3 Bilirubin Ql (U) Negative Normal NEGATIVE [facility] Comment on above: Performed By: #### P OCGLUC #### [facility] [address] [place] [address] Dr. Nayely Ferrer Clarity (U) SL CLOUDY Abnormal CLEAR [facility] Comment on above: Performed By: #### P OCGLUC #### [facility] [address] [place] [address] Dr. Nayely Ferrer Color (U) YELLOW Normal YELLOW [facility] Comment on above: Performed By: #### P OCGLUC #### [facility] [address] [place] [address] Dr. Nayely Ferrer ERUAHD A micrscopic examina tion will be performed if indicated. Normal [facility] Comment on above: Performed By: #### P OCGLUC #### [facility] [address] [address] [address] Nayely Ferrer Glucose Ql (U) >1000 Abnormal NEGATIVE [facility] Comment on above: Performed By: #### P OCGLUC #### [facility] [address] [place] [address] Dr. Nayely Ferrer Hemoglobin Ql (U) LARGE Abnormal NEGATIVE [facility] Comment on above: Performed By: #### P OCGLUC #### [facility] [address] [place] [address] Dr. Nayely Ferrer Ketones Ql (U) 40 mg/dl Abnormal NEGATIVE [facility] Comment on above: Performed By: #### P OCGLUC #### [facility] [address] [place] [address] Dr. Nayely Ferrer LEUKOCYTES TRACE Abnormal NEGATIVE [facility] Comment on above: Performed By: #### P OCGLUC #### [facility] [address] [place] [address] Dr. Nayely Ferrer Nitrite Ql (U) Positive Abnormal NEGATIVE [facility] Comment on above: Performed By: #### P OCGLUC #### [facility] [address] [place] [address] Dr. Nayely Ferrer pH (U) 5.5 [pH] Normal 5-9 [facility] Comment on above: Performed By: #### P OCGLUC #### [facility] [address] [place] [address] Dr. Nayely Ferrer Protein (U) [Mass/Vol] 100 mg/dL Abnormal NEGATIVE/ TRACE [facility] Comment on above: Performed By: #### P OCGLUC #### [facility] [address] [place] [address] Dr. Nayely Ferrer SPEC GRAVITY 1.025 Normal 1.005-<=1.0 25 [facility] Comment on above: Performed By: #### P OCGLUC #### [facility] [address] [place] [address] Dr. Nayely Ferrer UR MICRO IND INDICATED Normal [facility] Comment on above: Performed By: #### P OCGLUC #### [facility] [address] [address] [address] Nayely Ferrer Urobilinogen Qn (U) 0.2 {Ced'U}/dL Normal 0.2 - 1. 0 [facility] Comment on above: Performed By: #### P OCGLUC #### [facility] [address] [place] [address] Dr. Nayely Ferrer LACTATE/LACTIC ACIDon 2022 Lactate [Moles/Vol] 1.7 mmol/L Normal 0.4-1.9 [facility] Comment on above: Performed By: #### P OCGLUC #### [facility] [address] [place] [address] Dr. Nayely Ferrer PROF 14(COMP METB)on 023 Albumin [Mass/Vol] 2.7 g/dL Critically low 3.4-5.0 [facility] Comment on above: Performed By: #### P OCGLUC #### [facility] [address] [place] [address] Dr. Nayely Ferrer Albumin/Globulin [Mass ratio] 0.6 {ratio} Normal [facility] Comment on above: Performed By: #### P OCGLUC #### [facility] [address] [place] [address] Dr. Nayely Ferrer ALP [Catalytic activity/Vol] 82 U/L Normal 46-116 [facility] Comment on above: Performed By: #### P OCGLUC #### [facility] [address] [place] [address] Dr. Nayely Ferrer ALT [Catalytic activity/Vol] 21 U/L Normal 16-63 [facility] Comment on above: Performed By: #### P OCGLUC #### [facility] [address] [place] [address] Dr. Nayely Ferrer Anion gap [Moles/Vol] 16.8 mmol/L Normal [facility] Comment on above: Performed By: #### P OCGLUC #### [facility] [address] [place] [address] Dr. Nayely Ferrer AST [Catalytic activity/Vol] 18 U/L Normal 15-37 [facility] Comment on above: Performed By: #### P OCGLUC #### [facility] [address] [address] [address] Nayely Ferrer Bilirubin [Mass/Vol] 0.9 mg/dL Normal 0.2-1.0 [facility] Comment on above: Performed By: #### P OCGLUC #### [facility] [address] [address] [address] Nayely Ferrer Calcium [Mass/Vol] 8.8 mg/dL Normal 8.5-10.1 [facility] Comment on above: Performed By: #### P OCGLUC #### [facility] [address] [place] [address] Dr. Nayely Ferrer Chloride [Moles/Vol] 94 mmol/L Critically low 98-107 [facility] Comment on above: Performed By: #### P OCGLUC #### [facility] [address] [place] [address] Dr. Nayely Ferrer CO2 [Moles/Vol] 22.6 mmol/L Normal 21.0-32.0 [facility] Comment on above: Performed By: #### P OCGLUC #### [facility] [address] [place] [address] Dr. Nayely Ferrer Creatinine [Mass/Vol] 1.49 mg/dL Critically high 0.70-1.30 [facility] Comment on above: Performed By: #### P OCGLUC #### [facility] [address] [address] [address] Nayely Ferrer EGFR-AF BRUNEIAN >60 Normal >=60 [facility] Comment on above: Performed By: #### P OCGLUC #### [facility] [address] [address] [address] Nayely Ferrer EGFR-NON AF BRUNEIAN 51 mL/min/1.73m2 Critically low >=60 [facility] Comment on above: Performed By: #### P OCGLUC #### [facility] [address] [place] [address] Dr. Nayely Ferrer Globulin (S) [Mass/Vol] 4.4 g/dL Normal [facility] Comment on above: Performed By: #### P OCGLUC #### [facility] [address] [address] [address] Nayely Ferrer Glucose [Mass/Vol] 346 mg/dL Critically high 74-106 [facility] Comment on above: Performed By: #### P OCGLUC #### [facility] [address] [address] [address] Nayely Ferrer Potassium [Moles/Vol] 3.4 mmol/L Critically low 3.5-5.1 [facility] Comment on above: Performed By: #### P OCGLUC #### [facility] [address] [place] [address] Dr. Nayely Ferrer Protein [Mass/Vol] 7.1 g/dL Normal 6.4-8.2 [facility] Comment on above: Performed By: #### P OCGLUC #### [facility] [address] [place] [address] Dr. Nayely Ferrer Sodium [Moles/Vol] 130 mmol/L Critically low 136-145 Th [facility] Comment on above: Performed By: #### P OCGLUC #### [facility] [address] [place] [address] Dr. Nayely Ferrer Urea nitrogen [Mass/Vol] 16.0 mg/dL Normal 7.0-18.0 [facility] Comment on above: Performed By: #### P OCGLUC #### [facility] [address] [place] [address] Dr. Nayely Ferrer Urea nitrogen/Creatinine [Mass ratio] 10.7 mg/mg Normal [facility] Comment on above: Performed By: #### P OCGLUC #### [facility] [address] [place] [address] Dr. Nayely Ferrer URINE MICROSCOPIC ONLYon BACTERIA LARGE Abnormal NONE SEEN [facility] Comment on above: Performed By: #### P OCGLUC #### [facility] [address] [place] [address] Dr. Nayely Ferrer Bacteria identified Cx Nom (U) INDICATED Normal [facility] Comment on above: Performed By: #### P OCGLUC #### [facility] [address] [address] [address] Nayely Ferrer CAST NONE SEEN Normal NONE SEEN [facility] Comment on above: Performed By: #### P OCGLUC #### [facility] [address] [address] [address] Nayely Ferrer Crystals LM Nom (Urine sed) NONE SEEN Normal NONE SEEN [facility] Comment on above: Performed By: #### P OCGLUC #### [facility] [address] [address] [address] Nayely Ferrer Epithelial cells LM Ql (Urine sed) FEW Abnormal NONE SEEN /RARE [facility] Comment on above: Performed By: #### P OCGLUC #### [facility] [address] [place] [address] Dr. Nayely Ferrer MUCOUS NONE SEEN Normal NONE SEEN [facility] Comment on above: Performed By: #### P OCGLUC #### [facility] [address] [address] [address] Nayely Ferrer RBC (U) [#/Vol] /uL Abnormal 0-2 [facility] Comment on above: Performed By: #### P OCGLUC #### [facility] [address] [place] [address] Dr. Nayely Ferrer WBC 75-100 Abnormal NONE SEEN [facility] Comment on above: Performed By: #### P OCGLUC #### [facility] [address] [place] [address] Dr. Nayely Ferrer Ambulatory Visit Summaryon 0 2- Ambulatory Visit Summary SHILO WARD :1975 Visit Date:05/17/2022 Ambulatory Visit Instructions Your Diagnosis Bile reflux esophagitis Chronic GERD BMI 38.0-38.9,adult Your Care Team Attending Physician - JOSE ANGEL MCKEE, Khadar Reed Primary Care Physician - Tray MCKEE, Fer This Is Your Medications List Contact prescribing physician if questions or concerns lactobacillus acidophilus (Acidophilus Probiotic Blend) linaclotide (Linzess 290 mcg oral capsule) metformin (metformin 500 mg oral tablet) metoprolol (Metoprolol tartrate 25 mg Tab) pantoprazole (Protonix 40 mg Tab-DR) sucralfate (Carafate 1 gram Tab) Procedures Performed EGD - Esophagogastroduodenoscopy (05/08/2022), Colonoscopy (10/24/2021), History of hip surgery. Medications What How Much When Instructions Unchanged lactobacillus acidophilus (Acidophilus Probiotic Blend) 1 Capsules By Mouth Every day Contact prescribing physician if questions or concerns Unchanged linaclotide (Linzess 290 mcg oral capsule) 1 Capsules By Mouth Every day Contact prescribing physician if questions or concerns Unchanged metformin (metformin 500 mg oral tablet) 1 Tablets By Mouth 2 times a day Contact prescribing physician if questions or concerns Unchanged metoprolol (Metoprolol tartrate 25 mg Tab) 1 Tablets By Mouth 2 times a day Contact prescribing physician if questions or concerns Unchanged pantoprazole (Protonix 40 mg Tab-DR) 1 Tablets By Mouth Every day Contact prescribing physician if questions or concerns Unchanged sucralfate (Carafate 1 gram Tab) 1 Tablets By Mouth Four times a day (before meals and at bedtime) prescribed Contact prescribing physician if questions or concerns Allergies acetaminophen-hydrocodone (Nausea) penicillin (Unknown) Problems Ongoing - Any problem that you are currently receiving treatment for. Abdominal pain, left lower quadrant Bile reflux esophagitis BMI 38.0-38.9,adult Change in bowel habits Chronic GERD Constipation Diabetes Diverticulitis Dysphagia Gastroesophageal reflux disease Glaucoma Gynecomastia HTN (hypertension) Hypertriglyceridemia Hyperuricemia IBS (irritable bowel syndrome) Insulinoma Psav-Ombcw-Rfixnii disease Lumbar disc disease Migraines Normal [facility] General Surgery Office/Clini c Noteon 05-17-2022 General Surgery Office/Clinic Note Chief Complaint post operative follow up HPI Staff 9 day post operative follow up post EGD with antral and antral nodule biopsies. GERD and dysphagia have improved with Carafate. History of Present Illness s/p EGD with antral biopsy for GERD, dysphagia; patient had evidence of bile reflux and antral gastritis; antral bx negative for H pylori; on Carafate with improvement in symptoms. Review of Systems ROS - Provider Constitutional: no fever, no sweats, no weight loss. Eyes: no glasses, no blurred vision, no visual loss. ENMT: no dentures, no hoarseness, no swallowing difficulties, no hearing loss, no ear infection(s), no nose bleeds. Cardiovascular: normal blood pressure, no chest pain, regular heartbeat, no heart murmur. Respiratory: no shortness of breath, no cough, no asthma, no wheezing. Gastrointestinal: no nausea, no vomiting, no diarrhea, no constipation, no blood in stool, no change in bowel habits, no abdominal pain, no hepatitis. Genitourinary: no kidney stones, no urine infection, no dysuria. Musculoskeletal: no pain, no weakness. Skin: no changing moles, no rash, no skin lumps. Neurologic: no seizures, no epilepsy, no headache. Psychiatric: no emotional or psychiatric problem. Heme/Lymph: no bleeding problems, no anemia, no blood clots, no transfusions. Allergy/Immunologic: no swollen lymph nodes/glands, no IV drug abuse. Other: Additional ROS info: Except as noted in the above Review of Systems and in the History of Present Illness, all other systems have been reviewed and are negative or noncontributory. Assessment/Plan 1. Bile reflux esophagitis (K21.00: Gastro-esophageal reflux disease with esophagitis, without bleeding) continue Carafate, particularly when stomach is empty; also on Protonix daily; call with problems/questions. 2. Chronic GERD (K21.9: Gastro-esophageal reflux disease without esophagitis) see # 1 3. BMI 38.0-38.9,adult (Z68.38: Body mass index [BMI] 38.0-38.9, adult) recommend diet and exercise Follow-up No qualifying data available Problem List/Past Medical History Ongoing Abdominal pain, left lower quadrant Bile reflux esophagitis BMI 38.0-38.9,adult Change in bowel habits Chronic GERD Constipation Diabetes Diverticulitis Dysphagia Gastroesophageal reflux disease Glaucoma Gynecomastia HTN (hypertension) Hypertriglyceridemia Hyperuricemia IBS (irritable bowel syndrome) Insulinoma Ntol-Jasla-Rprfdsn disease Lumbar disc disease Migraines Historical No qualifying data Procedure/Surgical History EGD - Esophagogastroduodenoscopy (05/08/2022), Colonoscopy (10/24/2021), History of hip surgery. Medications Acidophilus Probiotic Blend, 1 cap(s), Oral, Daily Carafate 1 gram Tab, 1 gm= 1 tab(s), Oral, QIDACHS Linzess 290 mcg oral capsule, 290 mcg= 1 cap(s), Oral, Daily metformin 500 mg oral tablet, 500 mg= 1 tab(s), Oral, BID Metoprolol tartrate 25 mg Tab, 25 mg= 1 tab(s), Oral, BID Protonix 40 mg Tab-DR, 40 mg= 1 tab(s), Oral, Daily Allergies acetaminophen-hydrocodone (Nausea) penicillin (Unknown) Social History Alcohol - Denies Alcohol Use, 09/18/2021 Substance Abuse - Denies Substance Abuse, 09/18/2021 Tobacco Never (less than 100 in lifetime) Tobacco Use:. Never Smokeless Tobacco Use:., 04/19/2022 Family History Diabetes mellitus type 2: Mother and Father. Hypertension: Mother and Father. Primary malignant neoplasm of bladder: Mother. Stroke: Mother. Immunizations Vaccine Date Status Comments influenza virus vaccine, inactivated 02/15/2022 Recorded SARSCoV2 mRNA(xuewiqemk-ujzi-pcwxzb) vac 11/29/2021 Recorded SARS-CoV-2 (COVID-19) mRNA BNT-162b2 vax 05/02/2021 Recorded 2022-04-19: TPV40 SARS-CoV-2 (COVID-19) mRNA BNT-162b2 vax 08/07/2020 Recorded 2022-04-19: TPV40 SARS-CoV-2 (COVID-19) mRNA BNT-162b2 vax 07/18/2020 Recorded 2022-04-19: TPV40 Normal [facility] Comment on above: Result Comment: Elec tronically Signed By: JOSE ANGEL MCKEE, Khadar Canchola\Date and Time Signed: 05/17/22 15:50 EST Pathology Noteon 05-10-2022 Pathology Note [id number]#1.00CD:127 Normal [facility] Operative Reporton Operative Report [id number]#1.00CD:127 Normal [facility] POINT OF CARE GLUCOSEon 04-21 Glucose [Mass/Vol] 153 mg/dL Critically high 74-106 T [facility] Comment on above: Performed By: #### P OCGLUC #### [facility] [address] [place], [place] [address] Dr. Nayely Ferrer Lab Reportson 05-06-2022 Lab Reports [id number]#[id number]:127 Normal [facility] Covid-19 PCR (CVDTBH)on 04-21 SARS-CoV-2 (COVID-19) RNA JOSIE+probe Ql (Unsp spec) Not detected Normal NOT DETECTED [facility] Comment on above: Result Comment: This test is not yet approved or cleared by the [place] FDA. When there are no FDA-approved or cleared tests available, and other criteria are met, FDA can make tests available under an emergency access mechanism called an Emergency Use Authorization (EUA). The EUA for this test is supported by the Policy Director of Health and Human Service's (HHS's) declaration that circumstances exist to justify the emergency use of in vitro diagnostics for the detection and/or diagnosis of the virus that causes COVID-19. This EUA will remain in effect (meaning this test can be used) for the duration of the COVID-19 declaration justifying emergency of IVDs, unless it is terminated or revoked by FDA (after which the test may no longer be used). When diagnostic testing is negative, the possibility of a false negative should be considered in the context of a patient's recent exposures and the presence of clinical signs and symptoms consistent with SARS-CoV-2. Performed By: #### [facility] #### [facility] [address] [place], [place] [address] Dr. Nayely Ferrre Consent for Procedure/Surger yon 04-23-2022 Consent for Procedure/Surgery [id number]:127 Normal [facility] Physician Referralon Physician Referral [id number]#1.00CD:127 Normal [facility] Covid-19 PCR (CVDTBH)on 11-20 SARS-CoV-2 (COVID-19) RNA JOSIE+probe Ql (Unsp spec) Detected Critically abnormal NOT DETECTED [facility] Comment on above: Result Comment: This test is not yet approved or cleared by the [place] FDA. When there are no FDA-approved or cleared tests available, and other criteria are met, FDA can make tests available under an emergency access mechanism called an Emergency Use Authorization (EUA). The EUA for this test is supported by the [place] of Health and Human Service's (HHS's) declaration that circumstances exist to justify the emergency use of in vitro diagnostics for the detection and/or diagnosis of the virus that causes COVID-19. This EUA will remain in effect (meaning this test can be used) for the duration of the COVID-19 declaration justifying emergency of IVDs, unless it is terminated or revoked by FDA (after which the test may no longer be used). Performed By: #### P OCGLUC #### [facility] [address] [place] [address] Dr. Nayely Ferrer Outside Colonoscopyon 2021 Outside Colonoscopy [id number]#1.00CD:127 Normal [facility] Reminderson 10-25-2021 Reminders - From: Beverley Rizvi LPN To: N - Clinical; Sent: 10/25/2021 10:31:26 EDT Show up: 09/25/2031 07:00:00 EDT Subject: colonoscopy recall Due Date/Time: 10/25/2031 07:00:00 EDT Reminder/Recall Patient is due for screening colonoscopy 10/25/2031. Normal [facility] POINT OF CARE GLUCOSEon 07-0 Glucose [Mass/Vol] 209 mg/dL Critically high 74-106 T [facility] Comment on above: Performed By: #### P OCGLUC #### [facility] [address] [place], [place] [address] Dr. Nayely Ferrer Consent for Procedure/Surger yon 09-20-2021 Consent for Procedure/Surgery [id number]#1.00CD:127 Normal [facility] Facesheeton 09-19-2021 Facesheet [id number]#1.00CD:127 Normal [facility] RAD - CT Reporton 09-14-2021 RAD - CT Report [id number]#1.00CD:127 Normal [facility] Historical Records Officeon 09-13-2021 Historical Records Office [id number]#1.00CD:127 Normal [facility] Physician Referralon 022 Physician Referral [id number]#1.00CD:127 Normal [facility] Vital Signs Date Time Vital Sign Value Performing Clinician Faci lity 01-20-2024 15:05-0400 Body height 177.8 cm Zhanna Rincon MD Work Phone: [facility] 01-20-2024 15:05-0400 Diastolic blood pressure 82 mm[Hg] Zhanna Rincon MD Work Phone: [facility] 01-20-2024 15:05-0400 Systolic blood pressure 134 mm[Hg] Zhanna Rincon MD Work Phone: [facility] 04-19-2022 14:49-0500 Blood Pressure Location Khadar WALTER [facility] 04-19-2022 14:49-0500 Diastolic blood pressure 94 mm[Hg] Khadar WALTER [facility] 04-19-2022 14:49-0500 Heart rate 70 /min Khadar WALTER [facility] 04-19-2022 14:49-0500 Respiratory rate 16 /min Khadar WALTER [facility] 04-19-2022 14:49-0500 Systolic blood pressure 124 mm[Hg] Khadra WALTER [facility] 09-18-2021 13:43-0400 Blood Pressure Location Khadar NILL [facility] [place] 09-18-2021 13:43-0400 Diastolic blood pressure 78 mm[Hg] Khadar NILL [facility] [place] 09-18-2021 13:43-0400 Heart rate 76 /min Khadar NILL [facility] 09-18-2021 13:43-0400 Respiratory rate 16 /min Khadar NILL [facility] 09-18-2021 13:43-0400 Systolic blood pressure 126 mm[Hg] Khadar BOYCEL [facility] Encounters Encounter Date Encounter Type Care Provider Facility Start: 01-23-2024 End: 02-03-2024 Telephone encounter Zhanna Rincon MD Work Phone: [facility] Start: 01-21-2024 End: 01-21-2024 ambulatory ZHANNA H TIMMIS Not Available Start: 01-20-2024 End: 01-20-2024 Office outpatient visit 25 minutes Zhanna Rincon MD Work Phone: [facility] Comment on above: Dizziness and giddin ess (Primary Dx); Otalgia, bilateral; Chronic sinusitis, unspecified location; Bilateral impacted cerumen Start: 01-20-2024 End: 01-20-2024 ambulatory ZHANNA H TIMMIS Not Available Start: 01-20-2024 End: 01-20-2024 Bamboo flowsheet Zhanna Rincon MD Work Phone: [facility] Start: 01-20-2024 End: 01-20-2024 Bamboo flowsheet Zhanna Rincon MD Work Phone: [facility] Start: 01-12-2024 End: 01-12-2024 ambulatory JESÚS SAUNDERS Not Available Start: 11-24-2023 End: 11-24-2023 ambulatory ZHANNA RINCON Not Available Start: 10-26-2023 End: 10-27-2023 Emergency department patient visit ALMA LIN [facility] Start: 10-14-2023 End: 10-14-2023 ambulatory ERLIN CARDENAS [facility] Start: 10-13-2023 End: 10-13-2023 ambulatory RADHA Black [facility] Start: 09-08-2023 End: 09-08-2023 ambulatory FER Carlson Brandy [facility] Start: 08-27-2023 End: 08-27-2023 ambulatory RADHA I [facility] Start: 08-23-2023 End: 08-24-2023 ambulatory GERMAN [facility] Start: 08-23-2023 End: 08-23-2023 Emergency department patient visit FER FELIZ [facility] Start: 12-06-2022 End: 12-07-2022 ambulatory FER FELIZ [facility] Start: 07-08-2022 End: 07-09-[address] FER FELIZ . Facility: Start: 06-21-2022 End: 07-02-[address] FER FELIZ . Facility: Start: 06-17-2022 End: 06-20-2022 Evaluation and management of inpatient DR FER FELIZ . Facility: Start: 05-17-2022 End: 05-18-2022 ambulatory Khadar WALTER Facility: [facility] Start: 05-17-2022 End: 05-17-2022 Patient encounter procedure Khadar WALTER [facility] Start: 05-10-2022 Encounter for preprocedural laboratory examination DR KHADAR WALTER . [facility] Start: 05-08-2022 End: 05-09-2022 ambulatory Khadar WALTER Facility:CD:[id number] Start: 05-03-2022 End: 05-04-[address] KHADAR WALTER . Facility: Start: 05-03-2022 End: 05-04-2022 Encounter for preprocedural laboratory examination DR KHADAR WALTER . Facility: Start: 04-19-2022 End: 04-20-2022 ambulatory Fer Feliz PROVIDER Facility: [facility] Start: 04-19-2022 End: 04-19-2022 Patient encounter procedure Khadar WALTER [facility] Start: 12-13-2021 End: 12-13-[address] FER FELIZ . Facility: Start: 10-24-2021 End: 10-25-2021 ambulatory Khadar WALTER Facility:[id number] Start: 10-20-[address] FER FELIZ . Facili ty: Start: 09-18-2021 End: 09-19-2021 ambulatory Fer Feliz PROVIDER Facility: [facility] Start: 09-18-2021 End: 09-18-2021 Patient encounter procedure Khadar WALTER [facility] Start: 09-12-2021 ambulatory Khadar WALTER Facility:[facility] Start: 09-06-2021 ambulatory Fer Feliz PROVIDER Fa cility:[facility] Procedures Date Procedure Procedure Detail Performing Clinician Start: 08-27-2023 Follow-up visit Follow-up RADHA AVITIA Start: 06-19-2022 Insertion of Infusion Device into Upper Vein, Percutaneous Approach DR FER FELIZ . Start: 05-08-2022 Esophagogastroduodenoscopy Khadar WALTER Start: 10-24-2021 Colonoscopy Khadar WALTER History of operative procedure on hip Khadar WALTER Plan of Treatment Date Care Activity Detail Author Start: 01-20-2024 End: 01-20-2024 Patient encounter procedure 01/20/2024 3:20 PM EDT Office Visit [facility] [address] [place] [id number] Zhanna Rincon MD [address] [facility] [address] [place] [address] Arrived [facility] Comment on above: Arrived Start: 12-21-2023 Influenza vaccination Influenza Vacc ine (#1) [facility] Start: 1975 Screening for malign ant neoplasm of colon [facility] Immunizations Immunization Date Immunization Notes Care Provider Fa cili 02-15-2022 influenza virus vaccine, unspecified formulation Khadar NILL [facility] [place] 11-29-2021 SARS-CoV-2 mRNA (aqlgzpgvijo-beba-mgahz se) vaccine Khadar NILL [facility] 05-02-2021 SARS-CoV-2 (COVID-19 ) mRNA BNT-162b2 vax Khadar NILL [facility] Comment on above: Result Comment: 2021: TPV40 08-07-2020 SARS-CoV-2 (COVID-19 ) mRNA BNT-162b2 vax [facility] Comment on above: Result Comment: 2021: TPV40 07-18-2020 SARS-CoV-2 (COVID-19 ) mRNA BNT-162b2 vax [facility] Comment on above: Result Comment: 2021: TPV40 Payers Date Payer Category Payer Private Health Insurance [employer] [id number] 2023 Unknown [employer] [id number] 2023-Present [address] [place] [address] [id number] 1977 Unknown [id number] 2.16.840.1.667267.3.579.2. 727 1977 Unknown [id number] 2.16.840.1.792319.3.579.2. 727 1977 Unknown [id number] 2.16.840.1.367693.3.579.2. 727 1977 Unknown [id number] 2.16.840.1.274343.3.579.2. 727 1977 Unknown [id number] 2.16.840.1.145985.3.579.2. 727 1977 Unknown [id number] 2.16.840.1.432142.3.579.2. 727 1977 Unknown [id number] 2.16.840.1.296367.3.579.2. 593 1977 Unknown [id number] 2.16.840.1.117773.3.579.2. 593 1977 Unknown [id number] 2.16.840.1.416249.3.579.2. 593 1977 Unknown [id number] 2.16.840.1.736408.3.579.2. 593 1977 Unknown [id number] 2.16.840.1.296394.3.579.2. 593 1977 Unknown [id number] 2.16.840.1.427280.3.579.2. 593 1977 Unknown [id number] 2.16.840.1.509873.3.579.2. 593 1977 Unknown [id number] 2.16.840.1.065225.3.579.2. 593 1977 Unknown [id number] 2.16.840.1.704717.3.579.2. 173 1977 Unknown [id number] 2.16.840.1.262114.3.579.2. 1286 1977 Unknown [id number] 2.16.840.1.736843.3.579.2. 1286 1977 Unknown [id number] 2.16.840.1.192644.3.579.2. 1286 1977 Unknown [id number] 2.16.840.1.334309.3.579.2. 1286 1977 Unknown [id number] 2.16.840.1.532149.3.579.2. 1286 1977 Unknown [id number] 2.16.840.1.516309.3.579.2. 1286 1977 Unknown [id number] 2.16.840.1.235079.3.579.2. 1286 1977 Unknown [id number] 2.16.840.1.812633.3.579.2. 1286 1977 Unknown [id number] 2.16.840.1.891024.3.579.2. 1259 1977 Unknown [id number] 2.16.840.1.077806.3.579.2. 1259 1977 Unknown [id number] 2.16.840.1.024580.3.579.2. 1259 1977 Unknown [id number] 2.16.840.1.420712.3.579.2. 1259 1959 Unknown [id number] Social History Date Type Detail Facility Start: 09-18-2021 End: 11-19-2023 Tobacco smoking status Never smoked tobacco (finding) [facility] Tobacco smoking status Never [facility] [place] Start: 11-24-2023 End: 01-20-2024 Sex Assigned At Male [facility] [place] Start: 11-19-2023 Tobacco use and exposure Smokeless tobacco non-user [facility] Start: 11-24-2023 End: 01-20-2024 Alcoholic beverage intake Current drinker of alcohol (finding) [facility] Start: 11-24-2023 End: 01-20-2024 History of Social function [facility] Start: 1975 Sex assigned at Not on file [facility] Functional Status Date Assessment Result Facility 04-19-2022 Functional Status N/A [facility] Clinical Notes 09-18-2021 to 02-03-2024 Telephone Encounter - Dari Rincon - 02/03/2024 8:49 AM EDTTelephone Encounter - Dari Rincon - 02/03/2024 8:49 AM EDTTelephone Encounter - Zhanna Rincon MD - 01/23/2024 7:54 AM EDT Note Date & Type Note Facility 02-03-2024 Telephone encounter Note Called pt to schedule follow up appt/he said his PCP is ordering a CT. PT will call back to schedule once he knows when the CT will be. [facility] 02-03-2024 Miscellaneous Notes Called pt to schedule follow up appt/he said his PCP is ordering a CT. PT will call back to schedule once he knows when the CT will be. Pt needs F/U appt to review xray results documented in this encounter [facility] 01-23-2024 Telephone encounter Note Pt needs F/U appt to review xray results [facility] 01-20-2024 History of Presen t illness Narrative Subjective Patient ID: Shilo Villagran Case is a 48 y.o. 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 Pt still has dizziness (dysequalibrium) and boni ear pain. Pt has bruxism Family History Problem Relation Name Age of Onset Diabetes Mother Other (HTN) Mother Other (Chronic kidney disease) Mother Diabetes Father Diabetes type II Brother x2 Active Ambulatory Problems Diagnosis Date Noted Kidney stone 08/27/2023 Prostate cancer screening 06/12/2021 Urinary frequency 06/12/2021 Acne 11/19/2023 Hyponatremia 11/19/2023 Sepsis (CMS/HCC) 11/19/2023 COVID-19 11/19/2023 Hyperuricemia 11/19/2023 Insulinoma 11/19/2023 Acute nontraumatic kidney injury (CMS/HCC) 11/19/2023 Sinus tachycardia 11/19/2023 GERD (gastroesophageal reflux disease) 11/19/2023 Overweight 11/19/2023 Lumbar disc disease 11/19/2023 Constipation 11/19/2023 Balanitis 11/19/2023 Acute cystitis without hematuria 11/19/2023 Acute sinusitis 11/19/2023 IBS (irritable bowel syndrome) 11/19/2023 Diverticulitis 11/19/2023 Hypertriglyceridemia (CMS/HCC) 11/19/2023 Borderline diabetes mellitus 11/19/2023 Glaucoma (CMS/HCC) 11/19/2023 Migraine headache (CMS/HCC) 11/19/2023 Gynecomastia 11/19/2023 Cslq-Edbzk-Smnzfrd disease 11/19/2023 Resolved Ambulatory Problems Diagnosis Date Noted No Resolved Ambulatory Problems Past Medical History: Diagnosis Date Ear problems Past Surgical History: Procedure Laterality Date COLONOSCOPY EGD Allergies Allergen Reactions Penicillins Current Outpatient Medications on File Prior to Visit Medication Sig Dispense Refill cetirizine (ZyrTEC) 10 MG tablet Take 20 mg by mouth Daily ciprofloxacin-dexAMETHasone (CiproDEX) otic suspension Administer 4 drops into each ear in the morning and 4 drops before bedtime. fluticasone (Flonase) 50 MCG/ACT nasal spray Administer 2 sprays into each nostril Daily Shake gently. Before first use, prime pump. After use, clean tip and replace cap. 16 g 11 glimepiride (Amaryl) 1 MG tablet Take 1 mg by mouth in the morning. Take before meals. pantoprazole (ProtoNix) 40 MG EC tablet Take 40 mg by mouth Daily polyethylene glycol, PEG, 3350 (Glycolax) 17 GM/SCOOP powder Take 17 g by mouth in the morning. tamsulosin (Flomax) 0.4 MG 24 hr capsule Take 0.4 mg by mouth in the morning. [DISCONTINUED] Flonase Sensimist 27.5 MCG/SPRAY nasal spray Administer 2 sprays into each nostril in the morning. [DISCONTINUED] hyoscyamine (Levsin) 0.125 MG SL tablet Take 0.125 mg by mouth every 4 (four) hours if needed [DISCONTINUED] levoFLOXacin (Levaquin) 750 MG tablet Take 250 mg by mouth 1 (one) time each day at the same time [DISCONTINUED] predniSONE (Deltasone) 10 MG tablet Take 10 mg by mouth Daily No current facility-administered medications on file prior to visit. Objective Last Recorded Vitals Vitals: 01/20/24 1505 BP: 134/82 ENT Physical Exam Oral Cavity/Oropharynx Lips: normal; Teeth: normal; Gums: gingiva normal; Tongue: normal; Oral mucosa: normal; Hard palate: normal; OC/OP comments: Boni cerumen impaction. O/W normal Assessment/Plan Diagnoses and all orders for this visit: Dizziness and giddiness Check VNG, posturography and roto chair Otalgia, bilateral Appears to be due to TMJ. Recommend night time mouth guard Chronic sinusitis, unspecified location Pt having sinus sx. Check sinus plain films. Bilateral impacted cerumen Ears debrided documented in this encounter [facility] 05-08-2022 Note OPERATIVE NOTE OPERATION DATE: 05/08/2022 PREOPERATIVE DIAGNOSIS: Gastroesophageal reflux disease, intermittent dysphagia. POSTOPERATIVE DIAGNOSIS: Bile reflux, mild antral gastritis, mild distal esophagitis. PROCEDURE: EGD with antral biopsy. SURGEON: Khadar Walter M.D. ANESTHESIA: Monitored anesthesia care. ESTIMATED BLOOD LOSS: Less than 1 mL. INDICATIONS AND CONSENT: Patient is a 47-year-old male with history of gastroesophageal reflux disease as well as intermittent dysphagia for solid foods, despite proton pump inhibitor therapy. Indications, risks, benefits, alternatives of proceeding with EGD were explained extensively to the patient, including the risks of bleeding, aspiration, esophageal/gastric/duodenal perforation or anesthetic complications. All of his questions were answered. Informed consent was obtained. PROCEDURE: Patient brought to the operating room, placed in the left lateral decubitus position. Monitored anesthesia care was provided. A bite block was placed in the patient's mouth. Scope was inserted into the oropharynx. Under direct visualization, it was advanced into the esophagus, past the cricopharyngeus, down to the stomach. The stomach was insufflated with air. The pylorus was traversed down to the descending portion of the duodenum. There was no evidence of duodenitis or ulceration. There was no scarring within the pyloric channel. Scope was pulled back into the stomach and retroflexed. There was no significant hiatal hernia. There was a moderate amount of bile throughout the stomach, as well as some antral gastritis in a linear pattern. There was also a nodular area along the greater curvature. Several biopsies of the antrum were obtained as well as of the nodular area with good hemostasis. The GE junction was noted at 40 cm. There was some mild distal esophagitis without Jeter's changes. Remainder of the esophagus was unremarkable. The scope was then withdrawn. The patient tolerated procedure well, was sent to recovery room in good condition. CC: Patient's family doctor. The [facility] 04-20-2022 Note Chief Complaint consultation for GERD and dysphagia HPI Staff 47 year old male presents on consultation from Dr. Feliz for GERD and dysphagia. Reports dry mouth and raw throat with use of Jardiance which he thought was contributing to symptoms. Jardiance has been stopped with improvement in symptoms but not resolution. States he has been taking apple cider vinegar, zinc and courtney chews which he believes has significantly improved GERD symptoms. No longer experiencing epigastric pain or sour taste in moth. Has occasional sore throat and clearing of throat. Denies indigestion, belching or bloating. Taking Protonix 40mg 3-4 times per week. History of Present Illness 47 yo male with h/o htn, hyperlipidemia, DMII, IBS, referred for GERD and intermittent dysphagia for solid foods; occasional regurgitation; mostly after eating; dysphagia for solid foods, will eventually go down, no early satiety or wt loss; no N/V; no bowel changes; takes Protonix, but not daily; no previous EGD; no asa or NSAID use; no tobacco use; no fmhx of GI malignancy or IBD. Review of Systems PHQ Score Initial Depression Screen Score: 0 ROS - Provider Constitutional: no fever, no sweats, no weight loss. Eyes: no glasses, no blurred vision, no visual loss. ENMT: no dentures, no hoarseness, no swallowing difficulties, no hearing loss, no ear infection(s), no nose bleeds. Cardiovascular: normal blood pressure, no chest pain, regular heartbeat, no heart murmur. Respiratory: no shortness of breath, no cough, no asthma, no wheezing. Gastrointestinal: no nausea, no vomiting, no diarrhea, no constipation, no blood in stool, no change in bowel habits, no abdominal pain, no hepatitis. Genitourinary: no kidney stones, no urine infection, no dysuria. Musculoskeletal: no pain, no weakness. Skin: no changing moles, no rash, no skin lumps. Neurologic: no seizures, no epilepsy, no headache. Psychiatric: no emotional or psychiatric problem. Heme/Lymph: no bleeding problems, no anemia, no blood clots, no transfusions. Allergy/Immunologic: no swollen lymph nodes/glands, no IV drug abuse. Other: Additional ROS info: Except as noted in the above Review of Systems and in the History of Present Illness, all other systems have been reviewed and are negative or noncontributory. Physical Exam Vitals & Measurements HR: 70(Peripheral) RR: 16 BP: 124/94 HT: 70 in HT: 177.8 cm WT: 121.7 kg WT: 267.74 lb BMI: 38.5 HEENT: normal conjunctiva, sclera clear, no scleral icterus, EOM intact, PERRLA, oral mucosa moist without lesions. Neck: trachea midline, no mass, symmetric, no thyromegaly or nodules, no adenopathy Respiratory: lungs CTA, respirations non labored. Cardiovascular: regular rate and rhythm, no murmur, no pedal edema or varicosities. Gastrointestinal: obese, soft, non distended, no tenderness, no masses, no palpable hernias, diastasis recti no, no hepatosplenomegaly; normal bs Lymphatic: no cervical adenopathy, Musculoskeletal: normal gait, digits and nails without infection, nodes, cyanosis, clubbing. Skin: no rashes, no lesions, no ulcers, no subcutaneous nodules, induration. Psychiatric/Neuro: oriented to time, place, person, judgement normal, affect appropriate for age, insight intact, no focal deficits. Tests: , review of old records completed, Discussed surgical options, risks, and possible complications with patient. Assessment/Plan 1. Chronic GERD (K21.9: Gastro-esophageal reflux disease without esophagitis) plan EGD under anesthesia for further evaluation, informed consent obtained. 2. Dysphagia (R13.10: Dysphagia, unspecified) see # 1 3. BMI 38.0-38.9,adult (Z68.38: Body mass index [BMI] 38.0-38.9, adult) recommend diet and exercise. Follow-up No qualifying data available Problem List/Past Medical History Ongoing Abdominal pain, left lower quadrant BMI 38.0-38.9,adult Change in bowel habits Chronic GERD Constipation Diabetes Diverticulitis Dysphagia Gastroesophageal reflux disease Glaucoma Gynecomastia HTN (hypertension) Hypertriglyceridemia Hyperuricemia IBS (irritable bowel syndrome) Insulinoma Ttdv-Rkvst-Rjktoqb disease Lumbar disc disease Migraines Historical No qualifying data Procedure/Surgical History Colonoscopy (10/24/2021), History of hip surgery. Medications Acidophilus Probiotic Blend, 1 cap(s), Oral, Daily Linzess 290 mcg oral capsule, 290 mcg= 1 cap(s), Oral, Daily metformin 500 mg oral tablet, 500 mg= 1 tab(s), Oral, BID Metoprolol tartrate 25 mg Tab, 25 mg= 1 tab(s), Oral, BID Protonix 40 mg Tab-DR, 40 mg= 1 tab(s), Oral, Daily Allergies acetaminophen-hydrocodone (Nausea) penicillin (Unknown) Social History Alcohol - Denies Alcohol Use, 09/18/2021 Substance Abuse - Denies Substance Abuse, 09/18/2021 Tobacco Never (less than 100 in lifetime) Tobacco Use:. Never Smokeless Tobacco Use:., 04/19/2022 Family History Diabetes mellitus type 2: Mother and Father. Hyper (more content not included)... [facility] Comment on above: Result Comment: Elec tronically Signed By: JOSE ANGEL MCKEE, Khadar R\.br\Date and Time Signed: 04/20/22 10:56 EST 10-24-2021 Note OPERATIVE NOTE OPERATION DATE: 10/24/2021 PREOPERATIVE DIAGNOSIS: Left lower quadrant abdominal pain, change in bowel habits. POSTOPERATIVE DIAGNOSIS: Redundant colon. PROCEDURE: Colonoscopy to cecum. SURGEON: Khadar Walter M.D. ANESTHESIA: Monitored anesthesia care. ESTIMATED BLOOD LOSS: Zero. INDICATIONS AND CONSENT: Patient is a 46-year-old male with a six month history of intermittent left lower quadrant abdominal pain as well as intermittent loose stools, some improvement with probiotic therapy. Indications, risks, benefits, alternatives of proceeding with colonoscopy were explained extensively to the patient, including the risks of bleeding, colon perforation or anesthetic complications. All of his questions were answered. Informed consent was obtained. PROCEDURE: Patient brought to the operating room, placed in the left lateral decubitus position. Monitored anesthesia care was provided. Rectal exam was performed which showed no masses or blood. The scope was inserted into the anal canal. Under direct visualization was advanced. With the aid of abdominal compression, it was advanced to the cecum where cecal markings were clearly identified. There was noted to be a good prep. Upon withdrawal of the scope, mucosal surfaces were carefully examined. There were no mass lesions or polyps. The terminal ileum was intubated and was noted to be normal. Upon withdrawal of the scope, Mucosal surfaces were carefully examined. There was noted to be no masses or polyps. No inflammatory changes or ulcerations. No significant diverticulosis. The scope was retroflexed in the anal canal. There was noted to be some prominent rectal veins, no significant hemorrhoidal disease. Scope was then withdrawn. Patient tolerated procedure well, was sent to recovery room in good condition. Follow up colonoscopy for screening should be in 10 years. : [facility] Signed and Approved by: DR KHADAR WALTER . 10/29/2021 17:17:00 [facility] 09-18-2021 Note Chief Complaint consultation for LLQ HPI Staff 46 year old male presents on consultation from Dr. Feliz for LLQ pain. Experiencing intermittent pain since March. Pain is worse when lying on left side. Intermittent loose stools, taking Linzess. Denies rectal pain or bleeding. Reports intermittent nausea, denies vomiting. CT abdomen/pelvis completed 06/07/21. Last colonoscopy completed 03/2014 with multiple biopsies showing colitis. History of Present Illness 46 yo male with h/o DMII, referred for bowel changes, intermittent lower abdominal pain, primarily LLQ; crampy, ache at times, worse with lying on left side; intermittent loose stools, and constipation at times, no blood or mucous; occasional nausea, no emesis; some bloating; had ED evaluation in March and April, negative CT scans of abd/pelvis both times; did have nonspecific colitis on colonoscopy in 2013, confirmed with biopsies, no treatment for IBD; does have grandfather with h/o Crohn's disease, no fmhx of colon cancer; no asa or NSAID use; no SBE prophylaxis; no tobacco use. Review of Systems PHQ Score Initial Depression Screen Score: 0 ROS - Provider Constitutional: no fever, no sweats, no weight loss. Eyes: no glasses, no blurred vision, no visual loss. ENMT: no dentures, no hoarseness, no swallowing difficulties, no hearing loss, no ear infection(s), no nose bleeds. Cardiovascular: normal blood pressure, no chest pain, regular heartbeat, no heart murmur. Respiratory: no shortness of breath, no cough, no asthma, no wheezing. Gastrointestinal: no nausea, no vomiting, no diarrhea, no constipation, no blood in stool, yes change in bowel habits, yes abdominal pain, no hepatitis. Genitourinary: no kidney stones, no urine infection, no dysuria. Musculoskeletal: no pain, no weakness. Skin: no changing moles, no rash, no skin lumps. Neurologic: no seizures, no epilepsy, no headache. Psychiatric: no emotional or psychiatric problem. Heme/Lymph: no bleeding problems, no anemia, no blood clots, no transfusions. Allergy/Immunologic: no swollen lymph nodes/glands, no IV drug abuse. Other: Additional ROS info: Except as noted in the above Review of Systems and in the History of Present Illness, all other systems have been reviewed and are negative or noncontributory. Physical Exam Vitals & Measurements HR: 76(Peripheral) RR: 16 BP: 126/78 HT: 177.8 cm HT: 177.8 cm WT: 122.9 kg WT: 122.9 kg BMI: 38.88 HEENT: normal conjunctiva, sclera clear, no scleral icterus, EOM intact, PERRLA, oral mucosa moist without lesions. Neck: trachea midline, no mass, symmetric, no thyromegaly or nodules, no adenopathy Respiratory: lungs CTA, respirations non labored. Cardiovascular: regular rate and rhythm, no murmur, no pedal edema or varicosities. Gastrointestinal: obese,soft, non distended, mild tenderness, LLQ, no peritoneal signs, no masses, no palpable hernias, diastasis recti no, no hepatosplenomegaly; normal bs Lymphatic: no cervical adenopathy, Musculoskeletal: normal gait, digits and nails without infection, nodes, cyanosis, clubbing. Skin: no rashes, no lesions, no ulcers, no subcutaneous nodules, induration. Psychiatric/Neuro: oriented to time, place, person, judgement normal, affect appropriate for age, insight intact, no focal deficits. Tests: , x-rays reviewed, review of old records completed, Discussed surgical options, risks, and possible complications with patient. Assessment/Plan 1. Change in bowel habits (R19.4: Change in bowel habit) plan colonoscopy under anesthesia for further evaluation, informed consent obtained. 2. Abdominal pain, left lower quadrant (R10.32: Left lower quadrant pain) see # 1 3. BMI 38.0-38.9,adult (Z68.38: Body mass index [BMI] 38.0-38.9, adult) recommend diet and exercise. Follow-up No qualifying data available Problem List/Past Medical History Ongoing Abdominal pain, left lower quadrant BMI 38.0-38.9,adult Change in bowel habits Constipation Diabetes Diverticulitis Esophageal reflux Glaucoma Gynecomastia HTN (hypertension) Hypertriglyceridemia Hyperuricemia IBS (irritable bowel syndrome) Insulinoma Wqbc-Cwgrg-Egoxlla disease Migraines Historical No qualifying data Procedure/Surgical History History of hip surgery. Medications Acidophilus Probiotic Blend, 1 cap(s), Oral, Daily Linzess 290 mcg oral capsule, 290 mcg= 1 cap(s), Oral, Daily metformin 500 mg oral tablet, 500 mg= 1 tab(s), Oral, BID Allergies acetaminophen-hydrocodone (Nausea) penicillin (Unknown) Social History Alcohol - Denies Alcohol Use, 09/18/2021 Substance Abuse - Denies Substance Abuse, 09/18/2021 Tobacco Never (less than 100 in lifetime) Tobacco Use:. Never Smokeless Tobacco Use:., 09/18/2021 Family History Diabetes mellitus type 2: Mother and Father. Hypertension: Mother and Father. Stroke: Mother. [facility] Comment on above: Result Comment: Elec tronically Signed By: JOSE ANGEL MCKEE, Khadar [place]ola\Date and Time Signed: 09/18/21 17:37 EDT Evaluation + Plan note No data available for this section General Surgery [place] Evaluation note Diagnosis Dizziness and giddiness- Primary Otalgia, bilateral Chronic sinusitis, unspecified location Bilateral impacted cerumen Impacted cerumen documented in this encounter [facility] No data available for this section General Surgery [place] Progress note No data available for this section General Surgery [place] Summary Purpose Family History No Family History Records FoundNo Family History Records FoundNo Family History Records FoundNo Family History Records FoundNo Family History Records FoundNo Family History Records FoundNo Family History Records Found Advance Directives No Advanced Directives Records FoundNo Advanced Directives Records FoundNo Advanced Directives Records FoundNo Advanced Directives Records FoundNo Advanced Directives Records FoundNo Advanced Directives Records FoundNo Advanced Directives Records Found Additional Source Comments Patient Care team informatio n (unrecognized section and content) Director Learning Services Relationship Specialty Start Date End Date Fer Feliz MD [address] [place] [phone] PCP - General Family Medicine 11/14/23 Director Learning Services Relationship Specialty Start Date End Date Fer Feliz MD [address] [place] [address] PCP - General Family Medicine 11/14/23 Director Learning Services Relationship Specialty Start Date End Date Fer Feliz MD [address] [place] [address] PCP - General Family Medicine 11/14/23 (unrecognized sect ion and content) No Status Records FoundNo Status Records FoundNo Status Records FoundNo Status Records FoundNo Status Records FoundNo Status Records FoundNo Status Records Found INFORMATION SOURCE (unrecogn ized section and content) DATE CREATED AUTHOR 05/23/2022 [facility] DATE CREATED AUTHOR AUTHOR'S ORGANIZ ATION 07/14/2022 [facility] DATE CREATED AUTHOR AUTHOR'S ORGANIZ ATION 12/08/2022 [facility] DATE CREATED AUTHOR AUTHOR'S ORGANIZ ATION 08/25/2023 [facility] DATE CREATED AUTHOR AUTHOR'S ORGANIZ ATION 10/16/2023 [facility] DATE CREATED AUTHOR AUTHOR'S ORGANIZ ATION 10/27/2023 [facility] DATE CREATED AUTHOR AUTHOR'S ORGANIZ ATION 01/26/2024 [facility] EPIC Reason for Visit (unrecogniz ed section and content) Reason Comments Ear Problem Follow up audio 01/11 FOR RECORDS PERTAINING TO PATIENTS WHO ARE OR HAVE BEEN ENROLLED IN A CHEMICAL DEPENDENCY/SUBSTANCEABUSE PROGRAM, SOME INFORMATION MAY BE OMITTED. This clinical summary was aggregated from multiple sources. Caution should be exercised in using it in the provision of clinical care. This summary normalizes information from multiple sources, and as a consequence, information in this document may materially change the coding, format and clinical context of patient data. In addition, data may be omitted in some cases. CLINICAL DECISIONS SHOULD BE BASED ON THE PRIMARY CLINICAL RECORDS. [facility]. provides no warranty or guarantee of the accuracy or completeness of information in this document.
--- NOTE | 2024-02-13 07:49 | CT_ITS ---
The [address] [address] Patient Name: GUTIERREZ WARD MRN: [id number] date: 1975 Sex: M Assigned Patient Location: CT Current Patient Location: Accession/Order Number: [id number] Exam Date: 02/13/2024 07:55 Report Date: 02/14/2024 08:42 At the request of: FER HO Procedure: CT sinus wo con EXAMINATION: CT sinus wo con HISTORY: Abnormal Xray Of Sinus COMPARISON: No relevant comparison available. TECHNIQUE: Axial and Coronal CT images were created without and/or with IV contrast as indicated by examination type. Dose reduction techniques were achieved by using automated exposure control and/or adjustment of mA and/or kV according to patient size and/or use of iterative reconstruction technique. FINDINGS: MAXILLARY SINUSES: 2.2 cm mucocele/retention cyst within left maxillary sinus. No significant mucosal thickening or fluid. Infundibula are patent. No significant anomalous inferior orbital ethmoid (Nathan) air cells. ETHMOID SINUSES: No significant mucosal thickening or fluid. Fovea ethmoidali and lamina papyracea are symmetric and intact. SPHENOID SINUSES: No significant mucosal thickening or fluid. Sphenoethmoidal recesses are patent. No bony dehiscence. FRONTAL SINUSES: No significant mucosal thickening or fluid. Frontal recesses are patent. NASAL FOSSA: deviation of the nasal septum. No franchesca bullosa or paradoxical turbinates are identified. OTHER: Enlarged pituitary fossa, [address]/CT sinus wo con IMPRESSION: 1. 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 No evidence of acute sinusitis. 2. Enlarged pituitary fossa, 15 mm. Consider MRI of brain if clinically indicated. Electronically authenticated by: JENA ELLIS Date: 02/14/2024 08:42
== END 2024-02-13 07:44 | disposition home or self-care (01) ==
LOC: CT 07:43
PROVIDERS: PCP Family Medicine; Visit Provider Family Medicine
DX: R93.0 Abnormal findings on diagnostic imaging of skull and head, not elsewhere classified (principal); J34.1 Cyst and mucocele of nose and nasal sinus
CPT/HCPCS: 70486

== ENCOUNTER 2024-03-12 09:01 | Outpatient (OUT) | payer OTHER, SELFPAY ==
--- NOTE | 2024-03-12 09:04 | MR_ITS ---
The [address] [address] Patient Name: GUTIERREZ WARD MRN: [id number] date: 1975 Sex: M Assigned Patient Location: MRI Current Patient Location: Accession/Order Number: [id number] Exam Date: 03/12/2024 09:45 Report Date: 03/15/2024 08:11 At the request of: FER HO Procedure: MR pituitary wo/w con MR pituitary wo/w con, 03/12/2024 9:45 AM EST INDICATION: Enlarged Pituitary Gland COMPARISON: Prior CT of the head dated 04/04/[address] of the sinuses dated 02/13/2024 TECHNIQUE: Multiplanar, multisequential MRI images of brain were obtained without and with injection of contrast. FINDINGS: The cerebral sulci as well as ventricular system are appropriate for age. There is no restricted diffusion. Hyperintensities on T2 and FLAIR images in the daly radiata and centrum semiovale with sparing of U fibers are nonspecific, statistically most likely consistent with mild microvascular ischemic changes versus migraine. The other differential diagnosis are postinfectious, vasculitis or post traumatic brain injury or demyelinating process. Pituitary gland: No abnormality of the pituitary gland is noted. The pituitary stalk is in midline. The cavernous sinuses and optic chiasma are unremarkable. There is no intracranial mass, mass effect, midline shift, intra or extra-axial fluid collection or large hemorrhage. Normal flow-void in the intracranial vessels is noted. There is a retention cyst within the left maxillary sinus. The visualized portions of orbits, mastoid air cells as well as remainder of paranasal sinuses are unremarkable. MR/MR pituitary wo/w con IMPRESSION: No acute intracranial process is noted. No abnormality of the pituitary gland is noted. Electronically authenticated by: DONIS STEPHENS Date: 03/15/2024 08:11
--- OUTSIDE RECORDS SUMMARY | 2024-03-12 09:19 | XMS_ITS | CCD ---
Author Organization [facility] Care Team Providers Care Photo Finisher Name Role Phone Fer Feliz Primary Care Physician [phone] JOSE ANGEL, Khadar Reed Attending Unavailable Hoy [...] Unavailable Fer Feliz MD Primary Care Provider [phone] MALCOLM RINCONARY H Attending Unavailable HOY, FER M Referring Unavailable JESÚS SAUNDERS Attending Unavailable TIMMIS, ZHANNA H Referring Unavailable TIMMIS ZHANNA H Attending Unavailable TIMMIS, ZHANNA H Referring Unavailable TIMMIS, ZHANNA H Attending Unavailable HOY, FER M Referring Unavailable Allergies Allergy Classification Reported Allergen(s) Allergy Type Date of Onset Reaction(s) Facility (4 sources) Acetaminophen / HYDROcodone; Translations: [acetaminophen-hy drocodone] Drug Allergy 03-15-20 14 Nausea (finding) [facility] (4 sources) Penicillin; Translations: [penicillin] Drug Allergy Unknown (qualifier value) [facility] [place] (2 sources) Acetaminophen / HYDROcodone Drug Allergy 03-16-20 14 [facility] (5 sources) Penicillins; Translations: [PENICILLINS] Drug allergy (disorder) 03-16-20 14 [facility] (7 sources) Penicillins Drug Intolerance 06-12-19 [facility] Medications Current Medications Medication Drug Class(es) Dates Sig (Normalized) Sig (Original) Acidophilus Probiotic Blend (3 sources) Start: 09-18-2021 take 1 capsule by mouth once daily Acidophilus Probiotic Blend 1 cap(s), Oral, Daily, Refill(s) 0 Start Date: 09/18/21 Status: Ordered cetirizine hydrochloride 10 mg oral tablet (7 sources) Histamine-1 Receptor Antagonist Start: 11-13-2023 take 2 tablets by mouth once daily cetirizine (ZyrTEC) 10 MG tablet Take 20 mg by mouth Daily 11/13/2023 Active ciprofloxacin 3 mg/ml / dexamethasone 1 mg/ml otic suspension (7 sources) Corticosteroid, Quinolone Antimicrobial Start: 11-04-2023 End: 02-27-2024 ciprofloxacin-dex AMETHasone (CiproDEX) otic suspension Administer 4 drops into each ear in the morning and 4 drops before bedtime. 11/04/2023 02/27/2024 Discontinued (Therapy completed) fluticasone propionate 0.05 mg/actuat metered dose nasal spray (10 sources) Corticosteroid Start: 11-24-2023 End: 11-23-2024 take [...] (Therapy completed) glimepiride 1 mg oral tablet (7 sources) Sulfonylurea Start: 11-16-2023 take 1 tablet [...] Refills(s) 0 Start Date: 04/12/22 Status: Ordered montelukast 10 mg oral tablet (2 sources) Leukotriene Receptor Antagonist Start: 02-02-2024 take 1 tablet by mouth once daily montelukast (Singulair) 10 MG tablet Take 10 mg by mouth Daily 02/02/2024 Active pantoprazole 40 mg delayed release oral tablet (9 sources) Proton Pump Inhibitor Start: 09-19-2023 take 1 tablet by mouth once daily pantoprazole (ProtoNix) 40 MG EC tablet Take 40 mg by mouth Daily 09/19/2023 Active Start: 04-12-2022 take 1 tablet by chanell th once daily Protonix 40 mg Tab-DR 40 mg = 1 tab(s), Oral, Daily, Refills(s) 0 Start Date: 04/12/22 Status: Ordered polyethylene glycol 3350 23722 mg powder for oral solution (7 sources) Osmotic Laxative Start: 10-26-2023 End: 02-27-2024 polyethylene glycol, PEG, 3350 (Glycolax) 17 GM/SCOOP powder Take 17 g by mouth in the morning. 10/26/2023 02/27/2024 Discontinued (Therapy completed) sucralfate 1000 mg oral tablet (1 source) Aluminum Complex Start: 05-09-2022 Carafate 1 gram Tab 1 gm = 1 tab(s), Oral, QIDACHS, prescribed 05/08/22, Refills(s) 0 Start Date: 05/09/22 Status: Ordered tamsulosin hydrochloride 0.4 mg oral capsule (7 sources) alpha-Adrenergi c Rosanne Start: 08-23-2023 take [...] [Left lower quadrant pain] Onset: 2 Episodic Coagulation and hemorrhagic disorders (1 source) Thrombocytopenia, unspecified; Translations: [THROMBOCYTOPENIA UNSPECIFIED] Onset: 3 Chronic Conditions associated with dizziness or vertigo (4 sources) Dizziness and giddiness; Translations: [Dizziness and giddiness] 01-20-2024 Episodic Deficiency and other anemia (1 source) Anemia, unspecified; Translations: [ANEMIA UNSPECIFIED] Onset: 3 Episodic Diabetes mellitus without complication (4 sources) Diabetes mellitus; Translations: [Type 2 diabetes mellitus without complications] Onset: 3 09-12-2021 Chronic Digestive congenital anomalies (1 source) Other specified congenital malformations of intestine; Translations: [OTH SPEC CONGEN MALFORM INTESTINE] Onset: 2 Chronic Disorders of lipid metabolism (12 sources) Hypertriglyceridemia; Translations: [Pure hyperglyceridemia] Onset: 2 09-12-2021 Chronic Diverticulosis and diverticulitis (10 sources) Diverticulitis; Translations: [Diverticulitis of intestine, part unspecified, without perforation or abscess without bleeding] Onset: 4 09-12-2021 Chronic Esophageal disorders (18 sources) Gastroesophageal reflux disease; Translations: [Gastroesophageal reflux disease without esophagitis] Onset: 3 09-12-2021 Chronic Essential hypertension (4 sources) Hypertensive disorder; Translations: [Essential (primary) hypertension] Onset: 3 09-12-2021 Chronic Gastritis and duodenitis (1 source) Gastritis, unspecified, without bleeding; Translations: [GASTRITIS UNS WITHOUT BLEEDING] Onset: 3 Episodic Glaucoma (10 sources) Glaucoma; Translations: [Unspecified glaucoma] Onset: 4 09-12-2021 Chronic Headache; including migraine (10 sources) Migraine; Translations: [Migraine, unspecified, not intractable, without status migrainosus] Onset: 4 09-12-2021 Chronic Inflammatory conditions of male genital organs (7 sources) Balanitis; Translations: [Balanitis] Onset: 4 11-19-2023 Chronic Other aftercare (1 source) 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; Translations: [[facility] USE ORAL HYPOGLYCEMIC DX] Onset: 3 Episodic Other bone disease and musculoskeletal deformities (10 sources) Juvenile osteochondrosis of lower extremity; Translations: [Juvenile osteochondrosis of head of femur [Tnbs-Tllfh-Ftnohix], unspecified leg] Onset: 4 09-12-2021 Chronic Other ear and sense organ disorders (2 sources) Bilateral earache; Translations: [Otalgia, bilateral] 01-20-2024 Episodic Other ear and sense organ disorders (2 sources) Impacted cerumen of bilateral ears; Translations: [Impacted cerumen, bilateral] 01-20-2024 Episodic Other gastrointestinal disorders (10 sources) Irritable bowel syndrome; Translations: [Irritable bowel syndrome without diarrhea] Onset: 4 09-12-2021 Chronic Other gastrointestinal disorders (1 source) Altered bowel function; Translations: [Change in bowel habit] Onset: 2 Episodic Other gastrointestinal disorders (3 sources) Alteration in bowel elimination 09-18-2021 Episodic Other gastrointestinal disorders (1 source) Dysphagia [...] BMI 38.0-38.9 ADULT] Onset: 3 Chronic Other upper respiratory disease (2 sources) Mucocele of maxillary sinus; Translations: [Cyst and mucocele of nose and nasal sinus] 02-27-2024 Episodic Other upper respiratory infections (2 sources) Chronic sinusitis; Translations: [Chronic sinusitis, unspecified] 01-20-2024 Chronic Residual codes; unclassified (1 source) Insomnia, unspecified; Translations: [INSOMNIA UNSPECIFIED] Onset: 3 Episodic Spondylosis; intervertebral disc disorders; other back problems (9 sources) Disorder of lumbar disc; Translations: [Unspecified [...] (1 source) Urinary Frequency, Pressure Onset: 4 Viral infection (1 source) COVID-19; Translations: [COVID-19] Onset: 2 Past or Other Problems Problem Classification Problem Date Documented Da te Episodic/Chronic Acute and unspecified renal failure (8 sources) Acute kidney failure, unspecified; Translations: [Acute nontraumatic kidney injury] Onset: 06-27-2022 11-19-2023 Episodic Calculus of urinary tract (10 sources) Calculus of kidney; Translations: [Kidney stone] Onset: 08-23-2023 11-19-2023 Episodic Cardiac dysrhythmias (7 sources) Sinus tachycardia; Translations: [Tachycardia, unspecified] Onset: 11-19-2023 11-19-2023 Episodic Diabetes mellitus without complication (7 sources) Prediabetes; Translations: [Prediabetes] Onset: 11-19-2023 11-19-2023 Episodic Fluid and electrolyte disorders (9 sources) Hypo-osmolality and hyponatremia; Translations: [Hypokalemia] Onset: 06-27-2022 11-19-2023 Episodic Genitourinary symptoms and ill-defined conditions (8 sources) Urinary frequency; Translations: [Increased frequency of urination] Onset: 06-12-2021 11-19-2023 Episodic Neoplasms of unspecified nature or uncertain behavior (10 sources) Neoplasm of pancreas; 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] Onset: 11-19-2023 09-12-2021 Episodic Nonmalignant breast conditions (10 sources) Gynecomastia; Translations: [Hypertrophy of breast] Onset: 11-19-2023 09-12-2021 Episodic Other gastrointestinal disorders (10 sources) Constipation; Translations: [Constipation, unspecified] Onset: 11-19-2023 2 Episodic Other gastrointestinal disorders (4 sources) Change in bowel habit; Translations: [CHANGE IN BOWEL HABIT] Onset: 10-24-2021 Episodic Other nutritional; endocrine; and metabolic disorders (10 sources) Hyperuricemia; Translations: [Hyperuricemia without signs of inflammatory arthritis and tophaceous disease] Onset: 11-19-2023 09-12-2021 Episodic Other nutritional; endocrine; and metabolic disorders (7 sources) Overweight; Translations: [Overweight] Onset: 11-19-2023 11-19-2023 Episodic Other screening for suspected conditions (not mental disorders or infectious disease) (7 sources) Patient encounter status; Translations: [Encounter for screening for malignant neoplasm of prostate] Onset: 06-12-2021 11-19-2023 Episodic Other skin disorders (7 sources) Acne; Translations: [Acne, unspecified] Onset: 11-19-2023 11-19-2023 Episodic Other upper respiratory infections (7 sources) Acute sinusitis; Translations: [Acute sinusitis, unspecified] Onset: 11-19-2023 11-19-2023 Episodic Septicemia (except in labor) (13 sources) Sepsis, unspecified organism; Translations: [Sepsis due to Escherichia coli [E. coli]] Onset: 06-27-2022 Episodic Unclassified (1 source) CONTACT W/AND (SUSP) EXPOS COVID-19; Translations: [CONTACT W/AND (SUSP) EXPOS COVID-19] Onset: 12-13-2021 Urinary tract infections (14 sources) Tubulo-interstitial nephritis, not specified as acute or chronic; Translations: [Acute pyelonephritis] Onset: 06-17-2022 Episodic Viral infection (7 sources) Disease caused by 2019-nCoV; Translations: [COVID-19] Onset: 11-19-2023 11-19-2023 Episodic Results Test Name Value Interpretation Reference Range [...] Trace Cordero MD on 10/26/2023 9:34 AM Flakito Black have personally reviewed the image(s) and agree with and/or edited the report Finalized by Flakito Onofre on 10/26/2023 10:06 AM Normal [facility] URN MACROSCOPIC NURon 2023 BILIRUBIN ALEJANDRA Negative Normal NEG [facility] Comment on above: Performed By: #### N UM #### [facility] ([id number]) [address] [place] [address] [place] [address] BLOOD/HGB ALEJANDRA Trace Abnormal NEG [facility] Comment on above: Performed By: #### N UM #### [facility] ([id number]) [address] [place] [address] [place] [address] GLUCOSE ALEJANDRA Negative Normal NEG [facility] Comment on above: Performed By: #### N UM #### [facility] ([id number]) [address] [place] [address] [place] [address] KETONES ALEJANDRA Negative Normal NEG [facility] Comment on above: Performed By: #### N UM #### [facility] ([id number]) [address] [place] [address] [place] [address] LEUKOCYTE ESTERASE ALEJANDRA Negative Normal NEG [facility] Comment on above: Performed By: #### N UM #### [facility] ([id number]) [address] [place] [address] [place] [address] NITRITE ALEJANDRA Negative Normal NEG [facility] Comment on above: Performed By: #### N UM #### [facility] ([id number]) [address] [place] [address] [place] [address] PH ALEJANDRA 5.5 Normal 5.0-8.5 [facility] Comment on above: Performed By: #### N UM #### [facility] ([id number]) [address] [place] [address] [place] [address] PROTEIN ALEJANDRA Negative Normal NEG [facility] Comment on above: Performed By: #### N UM #### [facility] ([id number]) [address] [place] [address] [place] [address] SPECIFIC GRAVITY ALEJANDRA 1.025 Normal 1.003-1.035 [facility] Comment on above: Performed By: #### N UM #### [facility] ([id number]) [address] [place] [address] UROBILINOGEN ALEJANDRA 0.2 eu/dL Normal <1.1 [facility] Comment on above: Performed By: #### N UM #### [facility] ([id number]) [address] [place] [address] XR ABDOMEN AP 1 VWon 024 XR ABDOMEN AP 1 VW XR [...] Villa MD on 10/13/2023 1:14 PM Normal [facility] UA (MICROSCOPIC)on 4 CELLULAR CASTS 1 /lpf High 0 [facility] Comment on above: Performed By: #### U LACY #### [facility] ([id number]) [address], [address] [place] [address] Hyaline casts LM Ql (Urine sed) 4 /lpf High 0-2 [facility] Comment on above: Performed By: #### U LACY #### [facility] ([id number]) [address] [place] [address] MUCOUS PRESENT Abnormal NONE [facility] Comment on above: Performed By: #### U LACY #### [facility] ([id number]) [address] [place] [address] R.B.CELLS 1 /hpf Normal 0-5 [facility] Comment on above: Performed By: #### U LACY #### [facility] ([id number]) [address] [place] [address] SQUAMOUS EPITHELIUM 1 /hpf Normal 0-5 [facility] Comment on above: Performed By: #### U LACY #### [facility] ([id number]) [address] [place] [address] W.B.CELLS 1 /hpf Normal 0-5 [facility] Comment on above: Performed By: #### U LACY #### [facility] ([id number]) [address] [place] [address] CBC W Auto Differential pane l (Bld)on 08-23-2023 % MID 6.2 % Normal [facility] Comment on above: Performed By: #### 5 7021-8 #### [facility] ([id number]) [address] [place] [address] ABSOLUTE MID 0.7 x10E9/L Normal 0.0-0.9 [facility] Comment on above: Performed By: #### 5 7021-8 #### [facility] ([id number]) [address] [place] [address] Erythrocyte distribution width (RBC) [Ratio] 12.8 % Normal 11.5-15.0 [facility] Comment on above: Performed By: #### 5 7021-8 #### [facility] ([id number]) [address] [place] [address] Granulocytes (Bld) [#/Vol] 7.1 10*3/uL Normal 1.5-7.2 [facility] Comment on above: Performed By: #### 5 7021-8 #### [facility] ([id number]) [address] [place] [address] Granulocytes/100 WBC (Bld) 71.0 % Normal [facility] Comment on above: Performed By: #### 5 7021-8 #### [facility] ([id number]) [address] [place] [address] Hematocrit (Bld) [Volume fraction] 46.9 % Normal 39-50 [facility] Comment on above: Performed By: #### 5 7021-8 #### [facility] ([id number]) [address] [place] [address] Hemoglobin (Bld) [Mass/Vol] 15.9 g/dL Normal 13.0-17.0 [facility] Comment on above: Performed By: #### 5 7021-8 #### [facility] ([id number]) [address] [place] [address] Lymphocytes (Bld) [#/Vol] 2.3 10*3/uL Normal 1.0-3.5 [facility] Comment on above: Performed By: #### 5 7021-8 #### [facility] ([id number]) [address] [place] [address] Lymphocytes/100 WBC (Bld) 22.8 % Normal [facility] Comment on above: Performed By: #### 5 7021-8 #### [facility] ([id number]) [address] [place] [address] MCH (RBC) [Entitic mass] 30.0 pg Normal 27-34 [facility] Comment on above: Performed By: #### 5 7021-8 #### [facility] ([id number]) [address] [place] [address] MCHC (RBC) [Mass/Vol] 33.9 g/dL Normal 32-36 [facility] Comment on above: Performed By: #### 5 7021-8 #### [facility] ([id number]) [address] [place] [address] MCV (RBC) [Entitic vol] 89 fL Normal 80-100 [facility] Comment on above: Performed By: #### 5 7021-8 #### [facility] ([id number]) [address] [place] [address] Platelet mean volume (Bld) [Entitic vol] 8.8 fL Normal 7-12 [facility] Comment on above: Performed By: #### 5 7021-8 #### [facility] ([id number]) [address] [place] [address] Platelets (Bld) [#/Vol] 180 10*3/uL Normal 150-450 [facility] Comment on above: Performed By: #### 5 7021-8 #### [facility] ([id number]) [address] [place] [address] RBC 5.30 x10E12/L Normal 4.10-5.70 [facility] Comment on above: Performed By: #### 5 7021-8 #### [facility] ([id number]) [address] [place] [address] WBC (Bld) [#/Vol] 10.1 10*3/uL Normal 4.0-11.0 [facility] Comment on above: Performed By: #### 5 7021-8 #### [facility] ([id number]) [address] [place] [address] CT ABDOMEN AND PELVIS WO CON Ton [...] Bueno MD on 08/23/2023 6:54 PM Normal [facility] POC [id number] 08-23-2023 Chloride [Moles/Vol] 107 mmol/L Normal 98-109 [facility] Comment on above: Performed By: #### I BMP #### [facility] ([id number]) [address] [place] [address] CO2 [Moles/Vol] 24 mmol/L Normal 22-32 [facility] Comment on above: Performed By: #### I BMP #### [facility] ([id number]) [address] [place] [address] Creatinine [Mass/Vol] 1.0 mg/dL Normal 0.7-1.2 [facility] Comment on above: Result Comment: METH OD TRACEABLE TO IDMS STANDARD Performed By: #### I BMP #### [facility] ([id number]) [address] [place] [address] eGFR (CKD-EPI) NON-RACE DEPENDENT >90 Normal >59 [facility] Comment on above: Result Comment: Reported eGFR is based on the CKD-EPI 2020 equation that does not use a race coefficient. Performed By: #### I BMP #### [facility] ([id number]) [address] [place] [address] Glucose [Mass/Vol] 123 mg/dL High 65-99 [facility] Comment on above: Performed By: #### I BMP #### [facility] ([id number]) [address] [place] [address] PORTABLE ICA 4.5 mg/dL Normal 4.5-5.3 [facility] Comment on above: Performed By: #### I BMP #### [facility] ([id number]) [address] [place] [address] Potassium [Moles/Vol] 4.0 mmol/L Normal 3.5-5.0 [facility] Comment on above: Performed By: #### I BMP #### [facility] ([id number]) [address] [place] [address] Sodium [Moles/Vol] 141 mmol/L Normal 134-146 [facility] Comment on above: Performed By: #### I BMP #### [facility] ([id number]) [address] [place] [address] Urea nitrogen [Mass/Vol] 20 mg/dL Normal 6-23 [facility] Comment on above: Performed By: #### I BMP #### [facility] ([id number]) [address] [place] [address] URINE CULTUREon 08-23-2023 Bacteria identified Cx Nom (U) CULTURE RESULTS NO GROWTH AT <1000 CFU/mL Normal [facility] Comment on above: Performed By: #### 6 30-4 #### [facility] ([id number]) [address] [place] [address], [address] [place] [address] URN MACROSCOPIC NURon 2023 BILIRUBIN ALEJANDRA Negative Normal NEG [facility] Comment on above: Performed By: #### N UM #### [facility] ([id number]) [address] [place] [address] BLOOD/HGB ALEJANDRA Large Abnormal NEG [facility] Comment on above: Performed By: #### N UM #### [facility] ([id number]) [address] [place] [address] GLUCOSE ALEJANDRA Negative Normal NEG [facility] Comment on above: Performed By: #### N UM #### [facility] ([id number]) [address] [place] [address] KETONES ALEJANDRA Negative Normal NEG [facility] Comment on above: Performed By: #### N UM #### [facility] ([id number]) [address] [place] [address] LEUKOCYTE ESTERASE ALEJANDRA Trace Abnormal NEG [facility] Comment on above: Performed By: #### N UM #### [facility] ([id number]) [address] [place] [address] NITRITE ALEJANDRA Negative Normal NEG [facility] Comment on above: Performed By: #### N UM #### [facility] ([id number]) [address] [place] [address] PH ALEJANDRA 5.5 Normal 5.0-8.5 [facility] Comment on above: Performed By: #### N UM #### [facility] ([id number]) [address] [place] [address] PROTEIN ALEJANDRA 30 mg/dL Abnormal NEG [facility] Comment on above: Performed By: #### N UM #### [facility] ([id number]) [address] [place] [address] SPECIFIC GRAVITY ALEJANDRA 1.020 Normal 1.003-1.035 Pro [facility] Comment on above: Performed By: #### N UM #### [facility] ([id number]) [address] [place] [address] UROBILINOGEN ALEJANDRA 0.2 eu/dL Normal <1.1 [facility] Comment on above: Performed By: #### N UM #### [facility] ([id number]) [address] [place] [address]4545 H. pylori Antigenon 12-08-19 H. pylori Antigen Specimen Description .FECES Direct Exam NEGATIVE Report Status FINAL 12/07/2022 Normal [facility] Comment on above: Performed By: #### F HPY #### [facility] [address] [place] [address] Cfo: Eric Blood MD [facility] [address] [place] [address] Cfo: Alma Galicia MD CBC AUTO DIFFon 07-08-2022 BASO # 0.1 103/ul Normal 0.0-0.1 [facility] Comment on above: Performed By: #### P OCGLUC #### [facility] [address] [place] [address] Dr. Nayely Ferrer Basophils/100 WBC (Bld) 0.9 % Normal 0.2-2.0 [facility] Comment on above: Performed By: #### P OCGLUC #### [facility] [address] [place] [address] Dr. Nayely Ferrer EO # 0.1 103/ul Normal 0.0-0.7 [facility] Comment on above: Performed By: #### P OCGLUC #### [facility] [address] [address] [address] Nayely Ferrer Eosinophils/100 WBC (Bld) 2.2 % Normal 0.9-7.0 [facility] Comment on above: Performed By: #### P OCGLUC #### [facility] [address] [place] [address] Dr. Nayely Ferrer Erythrocyte distribution width (RBC) [Ratio] 13.7 % Normal 11.0-15.0 [facility] Comment on above: Performed By: #### P OCGLUC #### [facility] [address] [place] [address] Dr. Nayely Ferrer Hematocrit (Bld) [Volume fraction] 42.3 % Normal 42.0-54.0 [facility] Comment on above: Performed By: #### P OCGLUC #### [facility] [address] [place] [address] Dr. Nayely Ferrer Hemoglobin (Bld) [Mass/Vol] 13.8 g/dL Critically low 14.0-18.0 [facility] Comment on above: Performed By: #### P OCGLUC #### [facility] [address] [place] [address] Dr. Nayely Ferrer IG # 0.01 10e3/ul Normal 0.00-0.03 [facility] Comment on above: Performed By: #### P OCGLUC #### [facility] [address] [place] [address] Dr. Nayely Ferrer IG % 0.2 % Normal 0.0-0.5 [facility] Comment on above: Performed By: #### P OCGLUC #### [facility] [address] [place] [address] Dr. Nayely Ferrer LYMPH # 1.8 103/ul Normal 1.2-3.8 [facility] Comment on above: Performed By: #### P OCGLUC #### [facility] [address] [place] [address] Dr. Nayely Ferrer Lymphocytes/100 WBC (Bld) 28.0 % Normal 20.5-60.0 [facility] Comment on above: Performed By: #### P OCGLUC #### [facility] [address] [place] [address] Dr. Nayely Ferrer MANUAL DIFF REQ NO Normal [facility] Comment on above: Performed By: #### P OCGLUC #### [facility] [address] [place] [address] Dr. Nayely Ferrer MCH (RBC) [Entitic mass] 28.7 pg Normal 25.9-34.0 [facility] Comment on above: Performed By: #### P OCGLUC #### [facility] [address] [address] [address] Nayely Ferrer MCHC (RBC) [Mass/Vol] 32.6 g/dL Normal 29.9-35.2 [facility] Comment on above: Performed By: #### P OCGLUC #### [facility] [address] [address] [address] Nayely Ferrer MCV (RBC) [Entitic vol] 87.9 fL Normal 80.0-94.0 [facility] Comment on above: Performed By: #### P OCGLUC #### [facility] [address] [place] [address] Dr. Nayely Ferrer MONO # 0.3 103/ul Normal 0.3-0.8 [facility] Comment on above: Performed By: #### P OCGLUC #### [facility] [address] [place] [address] Dr. Nayely Ferrer Monocytes/100 WBC (Bld) 4.9 % Normal 1.7-12.0 [facility] Comment on above: Performed By: #### P OCGLUC #### [facility] [address] [place] [address] Dr. Nayely Ferrer NEUT # 4.2 103/ul Normal 1.4-6.5 [facility] Comment on above: Performed By: #### P OCGLUC #### [facility] [address] [place] [address] Dr. Nayely Ferrer Neutrophils/100 WBC (Bld) 63.8 % Normal 43.0-75.0 [facility] Comment on above: Performed By: #### P OCGLUC #### [facility] [address] [place] [address] Dr. Nayely Ferrer Platelet mean volume (Bld) [Entitic vol] 9.3 fL Critically low 9.5-13.5 [facility] Comment on above: Performed By: #### P OCGLUC #### [facility] [address] [place] [address] Dr. Nayely Ferrer PLT 207 103/ul Normal 150-450 [facility] Comment on above: Performed By: #### P OCGLUC #### [facility] [address] [place] [address] Dr. Nayely Ferrer RBC 4.81 106/ul Normal 4.70-6.10 [facility] Comment on above: Performed By: #### P OCGLUC #### [facility] [address] [place] [address] Dr. Nayely Ferrer WBC 6.5 103/ul Normal 4.0-11.0 [facility] Comment on above: Performed By: #### P OCGLUC #### [facility] [address] [place] [address] Dr. Nayely Ferrer CULTURE URINEon 07-08-2022 CULTURE URINE Culture Observations : LIGHT GROWTH OF MIXED SKIN HONG. NO POTENTIAL PATHOGENS SEEN. Normal [facility] Comment on above: Performed By: #### U RCX #### [facility] [address] [place] [address] Dr. Nayely Ferrer IRONon 07-08-2022 Iron [Mass/Vol] 79.0 ug/dL Normal 65.0-175.0 [facility] Comment on above: Performed By: #### P OCGLUC #### [facility] [address] [place] [address] Dr. Nayely Ferrer PROF 14(COMP METB)on 023 Albumin [Mass/Vol] 3.5 g/dL Normal 3.4-5.0 [facility] Comment on above: Performed By: #### P OCGLUC #### [facility] [address] [place] [address] Dr. Nayely Ferrer Albumin/Globulin [Mass ratio] 0.7 {ratio} Normal [facility] Comment on above: Performed By: #### P OCGLUC #### [facility] [address] [place] [address] Dr. Nayely Ferrer ALP [Catalytic activity/Vol] 44 U/L Critically low 46-116 [facility] Comment on above: Performed By: #### P OCGLUC #### [facility] [address] [place] [address] Dr. Nayely Ferrer ALT [Catalytic activity/Vol] 34 U/L Normal 16-63 [facility] Comment on above: Performed By: #### P OCGLUC #### [facility] [address] [address] [address] Nayely Ferrer Anion gap [Moles/Vol] 12.1 mmol/L Normal [facility] Comment on above: Performed By: #### P OCGLUC #### [facility] [address] [address] [address] Nayely Ferrer AST [Catalytic activity/Vol] 33 U/L Normal 15-37 [facility] Comment on above: Performed By: #### P OCGLUC #### [facility] [address] [address] [address] Nayely Ferrer Bilirubin [Mass/Vol] 0.5 mg/dL Normal 0.2-1.0 [facility] Comment on above: Performed By: #### P OCGLUC #### [facility] [address] [address] [address] Nayely Ferrer Calcium [Mass/Vol] 9.1 mg/dL Normal 8.5-10.1 [facility] Comment on above: Performed By: #### P OCGLUC #### [facility] [address] [address] [address] Nayely Ferrer Chloride [Moles/Vol] 104 mmol/L Normal 98-107 [facility] Comment on above: Performed By: #### P OCGLUC #### [facility] [address] [address] [address] Nayely Ferrer CO2 [Moles/Vol] 27.4 mmol/L Normal 21.0-32.0 [facility] Comment on above: Performed By: #### P OCGLUC #### [facility] [address] [address] [address] Nayely Ferrer Creatinine [Mass/Vol] 1.18 mg/dL Normal 0.70-1.30 [facility] Comment on above: Performed By: #### P OCGLUC #### [facility] [address] [address] [address] Nayely Ferrer EGFR-AF ISRAELI >60 Normal >=60 [facility] Comment on above: Performed By: #### P OCGLUC #### [facility] [address] [address] [address] Nayely Ferrer EGFR-NON AF ISRAELI >60 Normal >=60 [facility] Comment on above: Performed By: #### P OCGLUC #### [facility] [address] [address] [address] Nayely Ferrer Globulin (S) [Mass/Vol] 4.7 g/dL Normal [facility] Comment on above: Performed By: #### P OCGLUC #### [facility] [address] [address] [address] Nayely Ferrer Glucose [Mass/Vol] 126 mg/dL Critically high 74-106 [facility] Comment on above: Performed By: #### P OCGLUC #### [facility] [address] [address] [address] Nayely Ferrer Potassium [Moles/Vol] 3.5 mmol/L Normal 3.5-5.1 [facility] Comment on above: Performed By: #### P OCGLUC #### [facility] [address] [address] [address] Nayely Ferrer Protein [Mass/Vol] 8.2 g/dL Normal 6.4-8.2 [facility] Comment on above: Performed By: #### P OCGLUC #### [facility] [address] [address] [address] Nayely Ferrer Sodium [Moles/Vol] 140 mmol/L Normal 136-145 [facility] Comment on above: Performed By: #### P OCGLUC #### [facility] [address] [address] [address] Nayely Ferrer Urea nitrogen [Mass/Vol] 11.0 mg/dL Normal 7.0-18.0 [facility] Comment on above: Performed By: #### P OCGLUC #### [facility] [address] [address] [address] Nayely Ferrer Urea nitrogen/Creatinine [Mass ratio] 9.3 mg/mg Normal [facility] Comment on above: Performed By: #### P OCGLUC #### [facility] [address] [place] [address] Dr. Nayely Ferrer UA RANDOM W/MICROSCOPICon BACTERIA TRACE Abnormal NONE SEEN [facility] Comment on above: Performed By: #### P OCGLUC #### [facility] [address] [place] [address] Dr. Nayely Ferrer Bilirubin Ql (U) Negative Normal NEGATIVE [facility] Comment on above: Performed By: #### P OCGLUC #### [facility] [address] [place] [address] Dr. Nayely Ferrer CAST NONE SEEN Normal NONE SEEN [facility] Comment on above: Performed By: #### P OCGLUC #### [facility] [address] [place] [address] Dr. Nayely Ferrer Clarity (U) CLEAR Normal CLEAR [facility] Comment on above: Performed By: #### P OCGLUC #### [facility] [address] [place] [address] Dr. Nayely Ferrer Color (U) LT. YELLOW Normal YELLOW [facility] Comment on above: Performed By: #### P OCGLUC #### [facility] [address] [place] [address] Dr. Nayely Ferrer Crystals LM Nom (Urine sed) NONE SEEN Normal NONE SEEN [facility] Comment on above: Performed By: #### P OCGLUC #### [facility] [address] [place] [address] Dr. Nayely Ferrer Epithelial cells LM Ql (Urine sed) RARE Normal NONE SEEN /RARE [facility] Comment on above: Performed By: #### P OCGLUC #### [facility] [address] [place] [address] Dr. Nayely Ferrer Glucose Ql (U) >1000 Abnormal NEGATIVE [facility] Comment on above: Performed By: #### P OCGLUC #### [facility] [address] [place] [address] Dr. Nayely Ferrer Hemoglobin Ql (U) Negative Normal NEGATIVE [facility] Comment on above: Performed By: #### P OCGLUC #### [facility] [address] [place] [address] Dr. Nayely Ferrer Ketones Ql (U) TRACE Abnormal NEGATIVE [facility] Comment on above: Performed By: #### P OCGLUC #### [facility] [address] [place] [address] Dr. Nayely Ferrer LEUKOCYTES Negative Normal NEGATIVE [facility] Comment on above: Performed By: #### P OCGLUC #### [facility] [address] [place] [address] Dr. Nayely Ferrer MUCOUS NONE SEEN Normal NONE SEEN [facility] Comment on above: Performed By: #### P OCGLUC #### [facility] [address] [place] [address] Dr. Nayely Ferrer Nitrite Ql (U) Negative Normal NEGATIVE [facility] Comment on above: Performed By: #### P OCGLUC #### [facility] [address] [place] [address] Dr. Nayely Ferrer pH (U) 5.5 [pH] Normal 5-9 [facility] Comment on above: Performed By: #### P OCGLUC #### [facility] [address] [place] [address] Dr. Nayely Ferrer RBC 0-2 Normal 0-2 [facility] Comment on above: Performed By: #### P OCGLUC #### [facility] [address] [place] [address] Dr. Nayely Ferrer SPEC GRAVITY 1.015 Normal 1.005-<=1.0 25 [facility] Comment on above: Performed By: #### P OCGLUC #### [facility] [address] [place] [address] Dr. Nayely Ferrer UA PROTEIN TRACE Normal NEGATIVE/ TRACE [facility] Comment on above: Performed By: #### P OCGLUC #### [facility] [address] [place] [address] Dr. Nayely Ferrer Urobilinogen Qn (U) 0.2 {Ced'U}/dL Normal 0.2 - 1. 0 [facility] Comment on above: Performed By: #### P OCGLUC #### [facility] [address] [place] [address] Dr. Nayely Ferrer WBC 2-5 Abnormal NONE SEEN [facility] Comment on above: Performed By: #### P OCGLUC #### [facility] [address] [place] [address] Dr. Nayely Ferrer CULTURE BLOODon 06-23-2022 Microscopic [...] Trimethoprim/Sulfamethoxazol e >=320 R C Normal [facility] Comment on above: Performed By: #### P OCGLUC #### [facility] [address] [place] [address] Dr. Nayely Ferrer CBC AUTO DIFFon 06-20-2022 BASO # 0.0 103/ul Normal 0.0-0.1 [facility] Comment on above: Performed By: #### P OCGLUC #### [facility] [address] [place] [address] Dr. Nayely Ferrer Basophils/100 WBC (Bld) 0.3 % Normal 0.2-2.0 [facility] Comment on above: Performed By: #### P OCGLUC #### [facility] [address] [place] [address] Dr. Nayely Ferrer EO # 0.1 103/ul Normal 0.0-0.7 [facility] Comment on above: Performed By: #### P OCGLUC #### [facility] [address] [place] [address] Dr. Nayely Ferrer Eosinophils/100 WBC (Bld) 0.6 % Critically low 0.9-7.0 [facility] Comment on above: Performed By: #### P OCGLUC #### [facility] [address] [place] [address] Dr. Nayely Ferrer Erythrocyte distribution width (RBC) [Ratio] 13.8 % Normal 11.0-15.0 [facility] Comment on above: Performed By: #### P OCGLUC #### [facility] [address] [place] [address] Dr. Nayely Ferrer Hematocrit (Bld) [Volume fraction] 32.4 % Critically low 42.0-54.0 [facility] Comment on above: Performed By: #### P OCGLUC #### [facility] [address] [place] [address] Dr. Nayely Ferrer Hemoglobin (Bld) [Mass/Vol] 10.9 g/dL Critically low 14.0-18.0 [facility] Comment on above: Performed By: #### P OCGLUC #### [facility] [address] [place] [address] Dr. Nayely Ferrer IG # 0.08 10e3/ul Critically high 0.00-0.03 [facility] Comment on above: Performed By: #### P OCGLUC #### [facility] [address] [place] [address] Dr. Nayely Ferrer IG % 0.8 % Critically high 0.0-0.5 [facility] Comment on above: Performed By: #### P OCGLUC #### [facility] [address] [place] [address] Dr. Nayely Ferrer LYMPH # 1.0 103/ul Critically low 1.2-3.8 [facility] Comment on above: Performed By: #### P OCGLUC #### [facility] [address] [place] [address] Dr. Nayely Ferrer Lymphocytes/100 WBC (Bld) 9.7 % Critically low 20.5-60.0 [facility] Comment on above: Performed By: #### P OCGLUC #### [facility] [address] [place] [address] Dr. Nayely Ferrer MANUAL DIFF REQ NO Normal [facility] Comment on above: Performed By: #### P OCGLUC #### [facility] [address] [place] [address] Dr. Nayely Ferrer MCH (RBC) [Entitic mass] 29.5 pg Normal 25.9-34.0 [facility] Comment on above: Performed By: #### P OCGLUC #### [facility] [address] [place] [address] Dr. Nayely Ferrer MCHC (RBC) [Mass/Vol] 33.6 g/dL Normal 29.9-35.2 [facility] Comment on above: Performed By: #### P OCGLUC #### [facility] [address] [place] [address] Dr. Nayely Ferrer MCV (RBC) [Entitic vol] 87.6 fL Normal 80.0-94.0 [facility] Comment on above: Performed By: #### P OCGLUC #### [facility] [address] [place] [address] Dr. Nayely Ferrer MONO # 0.5 103/ul Normal 0.3-0.8 [facility] Comment on above: Performed By: #### P OCGLUC #### [facility] [address] [place] [address] Dr. Nayely Ferrer Monocytes/100 WBC (Bld) 4.9 % Normal 1.7-12.0 [facility] Comment on above: Performed By: #### P OCGLUC #### [facility] [address] [place] [address] Dr. Nayely Ferrer NEUT # 8.9 103/ul Critically high 1.4-6.5 [facility] Comment on above: Performed By: #### P OCGLUC #### [facility] [address] [place] [address] Dr. Nayely Ferrer Neutrophils/100 WBC (Bld) 83.7 % Critically high 43.0-75.0 [facility] Comment on above: Performed By: #### P OCGLUC #### [facility] [address] [address] [address] Nayely Ferrer Platelet mean volume (Bld) [Entitic vol] 9.9 fL Normal 9.5-13.5 [facility] Comment on above: Performed By: #### P OCGLUC #### [facility] [address] [address] [address] Nayely Ferrer PLT 147 103/ul Critically low 150-450 [facility] Comment on above: Performed By: #### P OCGLUC #### [facility] [address] [address] [address] Nayely Ferrer RBC 3.70 106/ul Critically low 4.70-6.10 [facility] Comment on above: Performed By: #### P OCGLUC #### [facility] [address] [place] [address] Dr. Nayely Ferrer WBC 10.7 103/ul Normal 4.0-11.0 [facility] Comment on above: Performed By: #### P OCGLUC #### [facility] [address] [address] [address] Nayely Ferrer PROF CHEM 8 (BAS METB)on Anion gap [Moles/Vol] 15.4 mmol/L Normal [facility] Comment on above: Performed By: #### P OCGLUC #### [facility] [address] [place] [address] Dr. Nayely Ferrer Calcium [Mass/Vol] 7.9 mg/dL Critically low 8.5-10.1 [facility] Comment on above: Performed By: #### P OCGLUC #### [facility] [address] [place] [address] Dr. Nayely Ferrer Chloride [Moles/Vol] 101 mmol/L Normal 98-107 [facility] Comment on above: Performed By: #### P OCGLUC #### [facility] [address] [place] [address] Dr. Nayely Ferrer CO2 [Moles/Vol] 22.0 mmol/L Normal 21.0-32.0 [facility] Comment on above: Performed By: #### P OCGLUC #### [facility] [address] [address] [address] Nayely Ferrer Creatinine [Mass/Vol] 1.42 mg/dL Critically high 0.70-1.30 [facility] Comment on above: Performed By: #### P OCGLUC #### [facility] [address] [address] [address] Nayely Ferrer EGFR-AF ISRAELI >60 Normal >=60 [facility] Comment on above: Performed By: #### P OCGLUC #### [facility] [address] [address] [address] Nayely Ferrer EGFR-NON AF ISRAELI 54 mL/min/1.73m2 Critically low >=60 [facility] Comment on above: Performed By: #### P OCGLUC #### [facility] [address] [address] [address] Nayely Ferrer Glucose [Mass/Vol] 188 mg/dL Critically high 74-106 [facility] Comment on above: Performed By: #### P OCGLUC #### [facility] [address] [address] [address] Nayely Ferrer Potassium [Moles/Vol] 3.4 mmol/L Critically low 3.5-5.1 [facility] Comment on above: Performed By: #### P OCGLUC #### [facility] [address] [address] [address] Nayely Ferrer Sodium [Moles/Vol] 135 mmol/L Critically low 136-145 [facility] Comment on above: Performed By: #### P OCGLUC #### [facility] [address] [address] [address] Nayely Ferrer Urea nitrogen [Mass/Vol] 19.0 mg/dL Critically high 7.0-18.0 [facility] Comment on above: Performed By: #### P OCGLUC #### [facility] [address] [address] [address] Nayely Ferrer Urea nitrogen/Creatinine [Mass ratio] 13.4 mg/mg Normal [facility] Comment on above: Performed By: #### P OCGLUC #### [facility] [address] [address] [address] Nayely Ferrer CBC AUTO DIFFon 06-19-2022 BASO # 0.0 103/ul Normal 0.0-0.1 [facility] Comment on above: Performed By: #### P OCGLUC #### [facility] [address] [place] [address] Dr. Nayely Ferrer Basophils/100 WBC (Bld) 0.2 % Normal 0.2-2.0 [facility] Comment on above: Performed By: #### P OCGLUC #### [facility] [address] [place] [address] Dr. Nayely Ferrer EO # 0.0 103/ul Normal 0.0-0.7 [facility] Comment on above: Performed By: #### P OCGLUC #### [facility] [address] [place] [address] Dr. Nayely Ferrer Eosinophils/100 WBC (Bld) 0.4 % Critically low 0.9-7.0 [facility] Comment on above: Performed By: #### P OCGLUC #### [facility] [address] [place] [address] Dr. Nayely Ferrer Erythrocyte distribution width (RBC) [Ratio] 13.5 % Normal 11.0-15.0 [facility] Comment on above: Performed By: #### P OCGLUC #### [facility] [address] [place] [address] Dr. Nayely Ferrer Hematocrit (Bld) [Volume fraction] 35.2 % Critically low 42.0-54.0 [facility] Comment on above: Performed By: #### P OCGLUC #### [facility] [address] [place] [address] Dr. Nayely Ferrer Hemoglobin (Bld) [Mass/Vol] 11.9 g/dL Critically low 14.0-18.0 [facility] Comment on above: Performed By: #### P OCGLUC #### [facility] [address] [place] [address] Dr. Nayely Ferrer IG # 0.07 10e3/ul Critically high 0.00-0.03 [facility] Comment on above: Performed By: #### P OCGLUC #### [facility] [address] [address] [address] Nayely Ferrer IG % 0.6 % Critically high 0.0-0.5 [facility] Comment on above: Performed By: #### P OCGLUC #### [facility] [address] [address] [address] Nayely Ferrer LYMPH # 0.7 103/ul Critically low 1.2-3.8 [facility] Comment on above: Performed By: #### P OCGLUC #### [facility] [address] [address] [address] Nayely Ferrer Lymphocytes/100 WBC (Bld) 6.7 % Critically low 20.5-60.0 [facility] Comment on above: Performed By: #### P OCGLUC #### [facility] [address] [place] [address] Dr. Nayely Ferrer MANUAL DIFF REQ NO Normal [facility] Comment on above: Performed By: #### P OCGLUC #### [facility] [address] [place] [address] Dr. Nayely Ferrer MCH (RBC) [Entitic mass] 29.5 pg Normal 25.9-34.0 [facility] Comment on above: Performed By: #### P OCGLUC #### [facility] [address] [place] [address] Dr. Nayely Ferrer MCHC (RBC) [Mass/Vol] 33.8 g/dL Normal 29.9-35.2 [facility] Comment on above: Performed By: #### P OCGLUC #### [facility] [address] [place] [address] Dr. Nayely Ferrer MCV (RBC) [Entitic vol] 87.3 fL Normal 80.0-94.0 [facility] Comment on above: Performed By: #### P OCGLUC #### [facility] [address] [place] [address] Dr. Nayely Ferrer MONO # 0.6 103/ul Normal 0.3-0.8 [facility] Comment on above: Performed By: #### P OCGLUC #### [facility] [address] [address] [address] Nayely Ferrer Monocytes/100 WBC (Bld) 5.6 % Normal 1.7-12.0 [facility] Comment on above: Performed By: #### P OCGLUC #### [facility] [address] [address] [address] Nayely Ferrer NEUT # 9.6 103/ul Critically high 1.4-6.5 [facility] Comment on above: Performed By: #### P OCGLUC #### [facility] [address] [place] [address] Dr. Nayely Ferrer Neutrophils/100 WBC (Bld) 86.5 % Critically high 43.0-75.0 [facility] Comment on above: Performed By: #### P OCGLUC #### [facility] [address] [place] [address] Dr. Nayely Ferrer Platelet mean volume (Bld) [Entitic vol] 9.6 fL Normal 9.5-13.5 [facility] Comment on above: Performed By: #### P OCGLUC #### [facility] [address] [place] [address] Dr. Nayely Ferrer PLT 133 103/ul Critically low 150-450 [facility] Comment on above: Performed By: #### P OCGLUC #### [facility] [address] [place] [address] Dr. Nayely Ferrer RBC 4.03 106/ul Critically low 4.70-6.10 [facility] Comment on above: Performed By: #### P OCGLUC #### [facility] [address] [place] [address] Dr. Nayely Ferrer WBC 11.1 103/ul Critically high 4.0-11.0 [facility] Comment on above: Performed By: #### P OCGLUC #### [facility] [address] [place] [address] Dr. Nayely Ferrer CULTURE BLOODon 06-19-2022 Microscopic examination of blood, culture Culture Observations: Aerobic and Anaerobic bottles positive; BCID: E. Coli called to Emelyn Blue, RN Isolate 1 Escherichia coli Growth of [...] F Trimethoprim/Sulfamethoxazol e >=320 R F Normal [facility] Comment on above: Performed By: #### B [id number] #### [facility] [address] [place] [address] Dr. Nayely Ferrer CULTURE URINEon 06-19-2022 CULTURE [...] F Trimethoprim/Sulfamethoxazol e >=320 R F Normal [facility] Comment on above: Performed By: #### U RCX #### [facility] [address] [place] [address] Dr. Nayely Ferrer POINT OF CARE GLUCOSEon Glucose [Mass/Vol] 187 mg/dL Critically high 74-106 [facility] Comment on above: Performed By: #### P OCGLUC #### [facility] [address] [place] [address] Dr. Nayely Ferrer Glucose [Mass/Vol] 188 mg/dL Critically high 74-106 [facility] Comment on above: Performed By: #### P OCGLUC #### [facility] [address] [place] [address] Dr. Nayely Ferrer Glucose [Mass/Vol] 251 mg/dL Critically high 74-106 [facility] Comment on above: Performed By: #### P OCGLUC #### [facility] [address] [address] [address] Nayely Ferrer Glucose [Mass/Vol] 239 mg/dL Critically high 74-106 [facility] Comment on above: Performed By: #### P OCGLUC #### [facility] [address] [address] [address] Nayely Ferrer PROF CHEM 8 (BAS METB)on Anion gap [Moles/Vol] 16.0 mmol/L Normal [facility] Comment on above: Performed By: #### P OCGLUC #### [facility] [address] [place] [address] Dr. Nayely Ferrer Calcium [Mass/Vol] 8.3 mg/dL Critically low 8.5-10.1 [facility] Comment on above: Performed By: #### P OCGLUC #### [facility] [address] [place] [address] Dr. Nayely Ferrer Chloride [Moles/Vol] 100 mmol/L Normal 98-107 [facility] Comment on above: Performed By: #### P OCGLUC #### [facility] [address] [place] [address] Dr. Nayely Ferrer CO2 [Moles/Vol] 21.3 mmol/L Normal 21.0-32.0 [facility] Comment on above: Performed By: #### P OCGLUC #### [facility] [address] [place] [address] Dr. Nayely Ferrer Creatinine [Mass/Vol] 1.51 mg/dL Critically high 0.70-1.30 [facility] Comment on above: Performed By: #### P OCGLUC #### [facility] [address] [place] [address] Dr. Nayely Ferrer EGFR-AF ISRAELI >60 Normal >=60 [facility] Comment on above: Performed By: #### P OCGLUC #### [facility] [address] [place] [address] Dr. Nayely Ferrer EGFR-NON AF ISRAELI 50 mL/min/1.73m2 Critically low >=60 [facility] Comment on above: Performed By: #### P OCGLUC #### [facility] [address] [address] [address] Nayely Ferrer Glucose [Mass/Vol] 237 mg/dL Critically high 74-106 [facility] Comment on above: Performed By: #### P OCGLUC #### [facility] [address] [address] [address] Nayely Ferrer Potassium [Moles/Vol] 3.3 mmol/L Critically low 3.5-5.1 [facility] Comment on above: Performed By: #### P OCGLUC #### [facility] [address] [place] [address] Dr. Nayely Ferrer Sodium [Moles/Vol] 134 mmol/L Critically low 136-145 [facility] Comment on above: Performed By: #### P OCGLUC #### [facility] [address] [place] [address] Dr. Nayely Ferrer Urea nitrogen [Mass/Vol] 20.0 mg/dL Critically high 7.0-18.0 [facility] Comment on above: Performed By: #### P OCGLUC #### [facility] [address] [place] [address] Dr. Nayely Ferrer Urea nitrogen/Creatinine [Mass ratio] 13.2 mg/mg Normal [facility] Comment on above: Performed By: #### P OCGLUC #### [facility] [address] [address] [address] Nayely Ferrer CBC AUTO DIFFon 06-18-2022 BASO # 0.0 103/ul Normal 0.0-0.1 [facility] Comment on above: Performed By: #### P OCGLUC #### [facility] [address] [place] [address] Dr. Nayely Ferrer Basophils/100 WBC (Bld) 0.3 % Normal 0.2-2.0 [facility] Comment on above: Performed By: #### P OCGLUC #### [facility] [address] [address] [address] Nayely Ferrer EO # 0.0 103/ul Normal 0.0-0.7 [facility] Comment on above: Performed By: #### P OCGLUC #### [facility] [address] [place] [address] Dr. Nayely Ferrer Eosinophils/100 WBC (Bld) 0.1 % Critically low 0.9-7.0 [facility] Comment on above: Performed By: #### P OCGLUC #### [facility] [address] [place] [address] Dr. Nayely Ferrer Erythrocyte distribution width (RBC) [Ratio] 13.4 % Normal 11.0-15.0 [facility] Comment on above: Performed By: #### P OCGLUC #### [facility] [address] [place] [address] Dr. Nayely Ferrer Hematocrit (Bld) [Volume fraction] 33.0 % Critically low 42.0-54.0 [facility] Comment on above: Performed By: #### P OCGLUC #### [facility] [address] [place] [address] Dr. Nayely Ferrer Hemoglobin (Bld) [Mass/Vol] 11.4 g/dL Critically low 14.0-18.0 [facility] Comment on above: Performed By: #### P OCGLUC #### [facility] [address] [place] [address] Dr. Nayely Ferrer IG # 0.06 10e3/ul Critically high 0.00-0.03 [facility] Comment on above: Performed By: #### P OCGLUC #### [facility] [address] [place] [address] Dr. Nayely Ferrer IG % 0.5 % Normal 0.0-0.5 [facility] Comment on above: Performed By: #### P OCGLUC #### [facility] [address] [place] [address] Dr. Nayely Ferrer LYMPH # 0.8 103/ul Critically low 1.2-3.8 [facility] Comment on above: Performed By: #### P OCGLUC #### [facility] [address] [address] [address] Nayely Ferrer Lymphocytes/100 WBC (Bld) 6.7 % Critically low 20.5-60.0 [facility] Comment on above: Performed By: #### P OCGLUC #### [facility] [address] [address] [address] Nayely Ferrer MANUAL DIFF REQ NO Normal [facility] Comment on above: Performed By: #### P OCGLUC #### [facility] [address] [address] [address] Nayely Ferrer MCH (RBC) [Entitic mass] 29.9 pg Normal 25.9-34.0 [facility] Comment on above: Performed By: #### P OCGLUC #### [facility] [address] [place] [address] Dr. Nayely Ferrer MCHC (RBC) [Mass/Vol] 34.5 g/dL Normal 29.9-35.2 [facility] Comment on above: Performed By: #### P OCGLUC #### [facility] [address] [address] [address] Nayely Ferrer MCV (RBC) [Entitic vol] 86.6 fL Normal 80.0-94.0 [facility] Comment on above: Performed By: #### P OCGLUC #### [facility] [address] [place] [address] Dr. Nayely Ferrer MONO # 0.7 103/ul Normal 0.3-0.8 [facility] Comment on above: Performed By: #### P OCGLUC #### [facility] [address] [place] [address] Dr. Nayely Ferrer Monocytes/100 WBC (Bld) 5.6 % Normal 1.7-12.0 [facility] Comment on above: Performed By: #### P OCGLUC #### [facility] [address] [place] [address] Dr. Nayely Ferrer NEUT # 10.4 103/ul Critically high 1.4-6.5 [facility] Comment on above: Performed By: #### P OCGLUC #### [facility] [address] [address] [address] Nayely Ferrer Neutrophils/100 WBC (Bld) 86.8 % Critically high 43.0-75.0 [facility] Comment on above: Performed By: #### P OCGLUC #### [facility] [address] [address] [address] Nayely Ferrer Platelet mean volume (Bld) [Entitic vol] 9.6 fL Normal 9.5-13.5 [facility] Comment on above: Performed By: #### P OCGLUC #### [facility] [address] [address] [address] Nayely Ferrer PLT 113 103/ul Critically low 150-450 [facility] Comment on above: Performed By: #### P OCGLUC #### [facility] [address] [place] [address] Dr. Nayely Ferrer RBC 3.81 106/ul Critically low 4.70-6.10 [facility] Comment on above: Performed By: #### P OCGLUC #### [facility] [address] [address] [address] Nayely Ferrer WBC 12.0 103/ul Critically high 4.0-11.0 [facility] Comment on above: Performed By: #### P OCGLUC #### [facility] [address] [place] [address] Dr. Nayely Ferrer CULTURE BLOODon 06-18-2022 Microscopic examination of blood, culture Culture Observations: NO GROWTH AT 5 DAYS. Isolate 1 [id number] Normal [facility] Comment on above: Performed By: #### B [id number] #### [facility] [address] [address] [address] Nayely Ferrer OCC BLD IMMUNOASSAYon 2022 OCCULT BLOOD Positive Abnormal NEGATIVE [facility] Comment on above: Performed By: #### P OCGLUC #### [facility] [address] [place] [address] Dr. Nayely Ferrer POINT OF CARE GLUCOSEon - Glucose [Mass/Vol] 233 mg/dL Critically high 74-106 [facility] Comment on above: Performed By: #### P OCGLUC #### [facility] [address] [address] [address] Nayely Ferrer Glucose [Mass/Vol] 260 mg/dL Critically high 74-106 [facility] Comment on above: Performed By: #### P OCGLUC #### [facility] [address] [address] [address] Nayely Ferrer Glucose [Mass/Vol] 223 mg/dL Critically high 74-106 [facility] Comment on above: Performed By: #### P OCGLUC #### [facility] [address] [address] [address] Nayely Ferrer Glucose [Mass/Vol] 266 mg/dL Critically high 74-106 [facility] Comment on above: Performed By: #### P OCGLUC #### [facility] [address] [address] [address] Nayely Ferrer PROF CHEM 8 (BAS METB)on Anion gap [Moles/Vol] 14.4 mmol/L Normal [facility] Comment on above: Performed By: #### P OCGLUC #### [facility] [address] [address] [address] Nayely Ferrer Calcium [Mass/Vol] 8.1 mg/dL Critically low 8.5-10.1 [facility] Comment on above: Performed By: #### P OCGLUC #### [facility] [address] [address] [address] Nayely Ferrer Chloride [Moles/Vol] 100 mmol/L Normal 98-107 [facility] Comment on above: Performed By: #### P OCGLUC #### [facility] [address] [address] [address] Nayely Ferrer CO2 [Moles/Vol] 21.9 mmol/L Normal 21.0-32.0 [facility] Comment on above: Performed By: #### P OCGLUC #### [facility] [address] [address] [address] Nayely Ferrer Creatinine [Mass/Vol] 1.43 mg/dL Critically high 0.70-1.30 [facility] Comment on above: Performed By: #### P OCGLUC #### [facility] [address] [address] [address] Nayely Ferrer EGFR-AF ISRAELI >60 Normal >=60 [facility] Comment on above: Performed By: #### P OCGLUC #### [facility] [address] [address] [address] Nayely Ferrer EGFR-NON AF ISRAELI 53 mL/min/1.73m2 Critically low >=60 [facility] Comment on above: Performed By: #### P OCGLUC #### [facility] [address] [address] [address] Nayely Ferrer Glucose [Mass/Vol] 264 mg/dL Critically high 74-106 [facility] Comment on above: Performed By: #### P OCGLUC #### [facility] [address] [address] [address] Nayely Ferrer Potassium [Moles/Vol] 3.3 mmol/L Critically low 3.5-5.1 [facility] Comment on above: Performed By: #### P OCGLUC #### [facility] [address] [address] [address] Nayely Ferrer Sodium [Moles/Vol] 133 mmol/L Critically low 136-145 Th [facility] Comment on above: Performed By: #### P OCGLUC #### [facility] [address] [address] [address] Nayely Ferrer Urea nitrogen [Mass/Vol] 18.0 mg/dL Normal 7.0-18.0 [facility] Comment on above: Performed By: #### P OCGLUC #### [facility] [address] [address] [address] Nayely Ferrer Urea nitrogen/Creatinine [Mass ratio] 12.6 mg/mg Normal [facility] Comment on above: Performed By: #### P OCGLUC #### [facility] [address] [address] [address] Nayely Ferrer CBC AUTO DIFFon 06-17-2022 BASO # 0.0 103/ul Normal 0.0-0.1 [facility] Comment on above: Performed By: #### P OCGLUC #### [facility] [address] [address] [address] Nayely Ferrer Basophils/100 WBC (Bld) 0.3 % Normal 0.2-2.0 [facility] Comment on above: Performed By: #### P OCGLUC #### [facility] [address] [place] [address] Dr. Nayely Ferrer EO # 0.1 103/ul Normal 0.0-0.7 [facility] Comment on above: Performed By: #### P OCGLUC #### [facility] [address] [place] [address] Dr. Nayely Ferrer Eosinophils/100 WBC (Bld) 0.9 % Normal 0.9-7.0 [facility] Comment on above: Performed By: #### P OCGLUC #### [facility] [address] [place] [address] Dr. Nayely Ferrer Erythrocyte distribution width (RBC) [Ratio] 13.2 % Normal 11.0-15.0 [facility] Comment on above: Performed By: #### P OCGLUC #### [facility] [address] [place] [address] Dr. Nayely Ferrer Hematocrit (Bld) [Volume fraction] 37.1 % Critically low 42.0-54.0 [facility] Comment on above: Performed By: #### P OCGLUC #### [facility] [address] [place] [address] Dr. Nayely Ferrer Hemoglobin (Bld) [Mass/Vol] 12.5 g/dL Critically low 14.0-18.0 [facility] Comment on above: Performed By: #### P OCGLUC #### [facility] [address] [place] [address] Dr. Nayely Ferrer IG # 0.16 10e3/ul Critically high 0.00-0.03 [facility] Comment on above: Performed By: #### P OCGLUC #### [facility] [address] [place] [address] Dr. Nayely Ferrer IG % 1.1 % Critically high 0.0-0.5 [facility] Comment on above: Performed By: #### P OCGLUC #### [facility] [address] [place] [address] Dr. Nayely Ferrer LYMPH # 0.8 103/ul Critically low 1.2-3.8 [facility] Comment on above: Performed By: #### P OCGLUC #### [facility] [address] [place] [address] Dr. Nayely Ferrre Lymphocytes/100 WBC (Bld) 5.5 % Critically low 20.5-60.0 [facility] Comment on above: Performed By: #### P OCGLUC #### [facility] [address] [place] [address] Dr. Nayely Ferrer MANUAL DIFF REQ NO Normal [facility] Comment on above: Performed By: #### P OCGLUC #### [facility] [address] [place] [address] Dr. Nayely Ferrer MCH (RBC) [Entitic mass] 29.5 pg Normal 25.9-34.0 [facility] Comment on above: Performed By: #### P OCGLUC #### [facility] [address] [place] [address] Dr. Nayely Ferrer MCHC (RBC) [Mass/Vol] 33.7 g/dL Normal 29.9-35.2 [facility] Comment on above: Performed By: #### P OCGLUC #### [facility] [address] [place] [address] Dr. Nayely Ferrer MCV (RBC) [Entitic vol] 87.5 fL Normal 80.0-94.0 [facility] Comment on above: Performed By: #### P OCGLUC #### [facility] [address] [place] [address] Dr. Nayely Ferrer MONO # 0.8 103/ul Normal 0.3-0.8 [facility] Comment on above: Performed By: #### P OCGLUC #### [facility] [address] [place] [address] Dr. Nayely Ferrer Monocytes/100 WBC (Bld) 5.3 % Normal 1.7-12.0 [facility] Comment on above: Performed By: #### P OCGLUC #### [facility] [address] [place] [address] Dr. Nayely Ferrer NEUT # 12.7 103/ul Critically high 1.4-6.5 [facility] Comment on above: Performed By: #### P OCGLUC #### [facility] [address] [place] [address] Dr. Nayely Ferrer Neutrophils/100 WBC (Bld) 86.9 % Critically high 43.0-75.0 [facility] Comment on above: Performed By: #### P OCGLUC #### [facility] [address] [place] [address] Dr. Nayely Ferrer Platelet mean volume (Bld) [Entitic vol] 9.6 fL Normal 9.5-13.5 [facility] Comment on above: Performed By: #### P OCGLUC #### [facility] [address] [place] [address] Dr. Nayely Ferrer PLT 133 103/ul Critically low 150-450 [facility] Comment on above: Performed By: #### P OCGLUC #### [facility] [address] [place] [address] Dr. Nayely Ferrer RBC 4.24 106/ul Critically low 4.70-6.10 [facility] Comment on above: Performed By: #### P OCGLUC #### [facility] [address] [place] [address] Dr. Nayely Ferrer WBC 14.7 103/ul Critically high 4.0-11.0 [facility] Comment on above: Performed By: #### P OCGLUC #### [facility] [address] [place] [address] Dr. Nayely Ferrer DRUG SCREEN RAPID (URINE)on 06-17-2022 AMP Negative Normal NEGATIVE [facility] Comment on above: Performed By: #### P OCGLUC #### [facility] [address] [place] [address] Dr. Nayely Ferrer BAR Negative Normal NEGATIVE [facility] Comment on above: Performed By: #### P OCGLUC #### [facility] [address] [place] [address] Dr. Nayely Ferrer BUP Negative Normal NEGATIVE [facility] Comment on above: Performed By: #### P OCGLUC #### [facility] [address] [place] [address] Dr. Nayely Ferrer BZO Negative Normal NEGATIVE [facility] Comment on above: Performed By: #### P OCGLUC #### [facility] [address] [place] [address] Dr. Nayely Ferrer JOSE MANUEL Negative Normal NEGATIVE [facility] Comment on above: Performed By: #### P OCGLUC #### [facility] [address] [place] [address] Dr. Nayely Ferrer CUT-OFFS SEE BELOW Normal [facility] Comment on above: Result Comment: AMP (Amphetamine): [...] ng/mL Performed By: #### P OCGLUC #### [facility] [address] [place] [address] Dr. Nayely Ferrer DRUG CUT HEADER DRUG CLASS TEST SYST EM CUT-OFF CONCENTRATIONS ARE FOLLOWS: Normal [facility] Comment on above: Performed By: #### P OCGLUC #### [facility] [address] [place] [address] Dr. Nayely Ferrer mAMP Negative Normal NEGATIVE [facility] Comment on above: Performed By: #### P OCGLUC #### [facility] [address] [place] [address] Dr. Nayely Ferrer MTD Negative Normal NEGATIVE [facility] Comment on above: Performed By: #### P OCGLUC #### [facility] [address] [address] [address] Nayely Ferrer OPI Negative Normal NEGATIVE [facility] Comment on above: Performed By: #### P OCGLUC #### [facility] [address] [address] [address] Nayely Ferrer OXY Negative Normal NEGATIVE [facility] Comment on above: Performed By: #### P OCGLUC #### [facility] [address] [address] [address] Nayely Ferrer PCP Negative Normal NEGATIVE [facility] Comment on above: Performed By: #### P OCGLUC #### [facility] [address] [address] [address] Nayely Ferrer PPX Negative Normal NEGATIVE [facility] Comment on above: Performed By: #### P OCGLUC #### [facility] [facility] [address] [address] [address] Nayely Ferrer TCA Negative Normal NEGATIVE [facility] Comment on above: Performed By: #### P OCGLUC #### [facility] [address] [address] [address] Nayely Ferrer THC Negative Normal NEGATIVE [facility] Comment on above: Performed By: #### P OCGLUC #### [facility] [address] [place] [address] Dr. Nayely Ferrer GENTAMICIN RANDOMon 06-17-19 23 GENTAMICIN 3.6 ug/mL Normal [facility] Comment on above: Performed By: #### P OCGLUC #### [facility] [address] [place] [address] Dr. Nayely Ferrer POINT OF CARE GLUCOSEon - Glucose [Mass/Vol] 307 mg/dL Critically high 74-106 [facility] Comment on above: Performed By: #### P OCGLUC #### [facility] [address] [place] [address] Dr. Nayely Ferrer Glucose [Mass/Vol] 290 mg/dL Critically high 74-106 [facility] Comment on above: Performed By: #### P OCGLUC #### [facility] [address] [address] [address] Nayely Ferrer Glucose [Mass/Vol] 287 mg/dL Critically high 74-106 [facility] Comment on above: Performed By: #### P OCGLUC #### [facility] [address] [address] [address] Nayely Ferrer PROF CHEM 8 (BAS METB)on Anion gap [Moles/Vol] 15.4 mmol/L Normal [facility] Comment on above: Performed By: #### P OCGLUC #### [facility] [address] [address] [address] Nayely Ferrer Calcium [Mass/Vol] 8.2 mg/dL Critically low 8.5-10.1 [facility] Comment on above: Performed By: #### P OCGLUC #### [facility] [address] [place] [address] Dr. Nayely Ferrer Chloride [Moles/Vol] 97 mmol/L Critically low 98-107 [facility] Comment on above: Performed By: #### P OCGLUC #### [facility] [address] [address] [address] Nayely Ferrer CO2 [Moles/Vol] 23.2 mmol/L Normal 21.0-32.0 [facility] Comment on above: Performed By: #### P OCGLUC #### [facility] [address] [address] [address] Nayely Ferrer Creatinine [Mass/Vol] 1.36 mg/dL Critically high 0.70-1.30 [facility] Comment on above: Performed By: #### P OCGLUC #### [facility] [address] [address] [address] Nayely Fererr EGFR-AF ISRAELI >60 Normal >=60 [facility] Comment on above: Performed By: #### P OCGLUC #### [facility] [address] [address] [address] Nayely Ferrer EGFR-NON AF ISRAELI 57 mL/min/1.73m2 Critically low >=60 [facility] Comment on above: Performed By: #### P OCGLUC #### [facility] [address] [address] [address] Nayely Ferrer Glucose [Mass/Vol] 283 mg/dL Critically high 74-106 [facility] Comment on above: Performed By: #### P OCGLUC #### [facility] [address] [address] [address] Nayely Ferrer Potassium [Moles/Vol] 3.6 mmol/L Normal 3.5-5.1 [facility] Comment on above: Performed By: #### P OCGLUC #### [facility] [address] [address] [address] Nayely Ferrer Sodium [Moles/Vol] 132 mmol/L Critically low 136-145 Th [facility] Comment on above: Performed By: #### P OCGLUC #### [facility] [address] [place] [address] Dr. Nayely Ferrer Urea nitrogen [Mass/Vol] 15.0 mg/dL Normal 7.0-18.0 [facility] Comment on above: Performed By: #### P OCGLUC #### [facility] [address] [place] [address] Dr. Nayely Ferrer Urea nitrogen/Creatinine [Mass ratio] 11.0 mg/mg Normal [facility] Comment on above: Performed By: #### P OCGLUC #### [facility] [address] [place] [address] Dr. Nayely Ferrer BLOOD CULTURE ID PANELon A. baumannii Not detected Normal NOT DETECTED [facility] Comment on above: Performed By: #### P OCGLUC #### [facility] [address] [place] [address] Dr. Nayely Ferrer Bacteriodes fragilis Not detected Normal NOT DETECTED [facility] Comment on above: Performed By: #### P OCGLUC #### [facility] [address] [place] [address] Dr. Nayely Ferrer BCID CONTROLS PASSED Normal [facility] Comment on above: Performed By: #### P OCGLUC #### [facility] [address] [place] [address] Dr. Nayely Ferrer BCIDBTHD BLOOD CULTURE BOTTLE INFORMATION Normal [facility] Comment on above: Performed By: #### P OCGLUC #### [facility] [address] [place] [address] Dr. Nayely Ferrer BCIDHD1 ANTIMICROBIAL RESIST ANCE GENES [facility] Comment on above: Performed By: #### P OCGLUC #### [facility] [address] [place] [address] Dr. Nayely Ferrer BCIDHD2 SEE BELOW [facility] Comment on above: Result Comment: Note : Antimicrobial resitance can occur via multiple mechanisms. A Not Detected result for the [employer] antomicrobial resistance gene assays does not indicate antimicrobial susceptibility. Subculturing is required for species identification and susceptibility testing of isolates. Performed By: #### P OCGLUC #### [facility] [address] [place] [address] Dr. Nayely Ferrer BCIDHD3 Positive [facility] Comment on above: Performed By: #### P OCGLUC #### [facility] [address] [place] [address] Dr. Nayely Ferrer BCIDHD4 Negative [facility] Comment on above: Performed By: #### P OCGLUC #### [facility] [address] [place] [address] Dr. Nayely Ferrer BCIDHD5 YEAST [facility] Comment on above: Performed By: #### P OCGLUC #### [facility] [address] [place] [address] Dr. Nayely Ferrer Bottle Set: Set 1 [facility] Comment on above: Performed By: #### P OCGLUC #### [facility] [address] [place] [address] Dr. Nayely Ferrer Bottle: Aerobic Normal [facility] Comment on above: Performed By: #### P OCGLUC #### [facility] [address] [place] [address] Dr. Nayely Ferrer C. neoformans/gattii Not detected Normal NOT DETECTED [facility] Comment on above: Performed By: #### P OCGLUC #### [facility] [address] [place] [address] Dr. Nayely Ferrer Cindy albicans Not detected Normal NOT DETECTED [facility] Comment on above: Performed By: #### P OCGLUC #### [facility] [address] [place] [address] Dr. Nayely Ferrer Cindy auris Not detected Normal NOT DETECTED [facility] Comment on above: Performed By: #### P OCGLUC #### [facility] [address] [place] [address] Dr. Nayely Ferrer Cindy glabrata Not detected Normal NOT DETECTED [facility] Comment on above: Performed By: #### P OCGLUC #### [facility] [address] [place] [address] Dr. Nayely Ferrer Cindy Krusei Not detected Normal NOT DETECTED [facility] Comment on above: Performed By: #### P OCGLUC #### [facility] [address] [place] [address] Dr. Nayely Ferrer Cindy Parapsilosis Not detected Normal NOT DETECTED [facility] Comment on above: Performed By: #### P OCGLUC #### [facility] [address] [place] [address] Dr. Nayely Ferrer Cindy Tropicalis Not detected Normal NOT DETECTED [facility] Comment on above: Performed By: #### P OCGLUC #### [facility] [address] [place] [address] Dr. Nayely Ferrer CTX-M Resistant Gene Detected Abnormal NOT DETECTED [facility] Comment on above: Performed By: #### P OCGLUC #### [facility] [address] [place] [address] Dr. Nayely Ferrer E. Cloacae complex Not detected Normal NOT DETECTED [facility] Comment on above: Performed By: #### P OCGLUC #### [facility] [address] [place] [address] Dr. Nayely Ferrer E. faecalis Not detected Normal NOT DETECTED [facility] Comment on above: Performed By: #### P OCGLUC #### [facility] [address] [place] [address] Dr. Nayely Ferrer E. faecium Not detected Normal NOT DETECTED [facility] Comment on above: Performed By: #### P OCGLUC #### [facility] [address] [place] [address] Dr. Nayely Ferrer Enterobacteriaceae Detected Critically abnormal NOT DETECTED [facility] Comment on above: Performed By: #### P OCGLUC #### [facility] [address] [place] [address] Dr. Nayely Ferrer Escherichia coli Detected Critically abnormal NOT DETECTED [facility] Comment on above: Performed By: #### P OCGLUC #### [facility] [address] [place] [address] Dr. Nayely Ferrer H. influenzae Not detected Normal NOT DETECTED [facility] Comment on above: Performed By: #### P OCGLUC #### [facility] [address] [place] [address] Dr. Nayely Ferrer IMP Resistant Gene Not detected Normal NOT DETECTED [facility] Comment on above: Performed By: #### P OCGLUC #### [facility] [address] [place] [address] Dr. Nayely Ferrer K. oxytoca Not detected Normal NOT DETECTED [facility] Comment on above: Performed By: #### P OCGLUC #### [facility] [address] [place] [address] Dr. Nayely Ferrer K. pneumoniae Not detected Normal NOT DETECTED [facility] Comment on above: Performed By: #### P OCGLUC #### [facility] [address] [place] [address] Dr. Nayely Ferrer Klebsiella aerogenes Not detected Normal NOT DETECTED [facility] Comment on above: Performed By: #### P OCGLUC #### [facility] [address] [place] [address] Dr. Nayely Ferrer KPC Resistant Gene Not detected Normal NOT DETECTED [facility] Comment on above: Performed By: #### P OCGLUC #### [facility] [address] [place] [address] Dr. Nayely Ferrer List. monocytogenes Not detected Normal NOT DETECTED [facility] Comment on above: Performed By: #### P OCGLUC #### [facility] [address] [place] [address] Dr. Nayely Ferrer Mcr-1 Resistant Gene Not detected Normal NOT DETECTED [facility] Comment on above: Performed By: #### P OCGLUC #### [facility] [address] [place] [address] Dr. Nayely Ferrer mecA/C Not Applicable Normal NOT DETECTED [facility] Comment on above: Performed By: #### P OCGLUC #### [facility] [address] [place] [address] Dr. Nayely Ferrer mecA/C MREJ Not Applicable Normal NOT DETECTED [facility] Comment on above: Performed By: #### P OCGLUC #### [facility] [address] [place] [address] Dr. Nayely Ferrer N. meningitidis Not detected Normal NOT DETECTED [facility] Comment on above: Performed By: #### P OCGLUC #### [facility] [address] [place] [address] Dr. Nayely Ferrer NDM Resistant Gene Not detected Normal NOT DETECTED [facility] Comment on above: Performed By: #### P OCGLUC #### [facility] [address] [place] [address] Dr. Nayely Ferrer Oxa-48-like Not detected Normal NOT DETECTED [facility] Comment on above: Performed By: #### P OCGLUC #### [facility] [address] [place] [address] Dr. Nayely Ferrer Proteus Not detected Normal NOT DETECTED [facility] Comment on above: Performed By: #### P OCGLUC #### [facility] [address] [place] [address] Dr. Nayely Ferrer Pseud. aeruginosa Not detected Normal NOT DETECTED [facility] Comment on above: Performed By: #### P OCGLUC #### [facility] [address] [place] [address] Dr. Nayely Ferrer S. maltophilia Not detected Normal NOT DETECTED [facility] Comment on above: Performed By: #### P OCGLUC #### [facility] [address] [place] [address] Dr. Nayely Ferrer Salmonella Not detected Normal NOT DETECTED [facility] Comment on above: Performed By: #### P OCGLUC #### [facility] [address] [place] [address] Dr. Nayely Ferrer Seratia marcescens Not detected Normal NOT DETECTED [facility] Comment on above: Performed By: #### P OCGLUC #### [facility] [address] [place] [address] Dr. Nayeyl Ferrer Site: Lt Wrist Normal [facility] Comment on above: Performed By: #### P OCGLUC #### [facility] [address] [place] [address] Dr. Nayely Ferrer Staph. aureus Not detected Normal NOT DETECTED [facility] Comment on above: Performed By: #### P OCGLUC #### [facility] [address] [place] [address] Dr. Nayely Ferrer Staph. epidermidis Not detected Normal NOT DETECTED [facility] Comment on above: Performed By: #### P OCGLUC #### [facility] [address] [place] [address] Dr. Nayely Ferrer Staph. lugdunensis Not detected Normal NOT DETECTED [facility] Comment on above: Performed By: #### P OCGLUC #### [facility] [address] [place] [address] Dr. Nayely Ferrer Staphylococcus Not detected Normal NOT DETECTED [facility] Comment on above: Performed By: #### P OCGLUC #### [facility] [address] [place] [address] Dr. Nayely Ferrer Strep. agalactiae Not detected Normal NOT DETECTED [facility] Comment on above: Performed By: #### P OCGLUC #### [facility] [address] [place] [address] Dr. Nayely Ferrer Strep. pneumoniae Not detected Normal NOT DETECTED [facility] Comment on above: Performed By: #### P OCGLUC #### [facility] [address] [place] [address] Dr. Nayely Ferrer Strep. pyogenes Not detected Normal NOT DETECTED [facility] Comment on above: Performed By: #### P OCGLUC #### [facility] [address] [place] [address] Dr. Nayely Ferrer Streptococcus Not detected Normal NOT DETECTED [facility] Comment on above: Performed By: #### P OCGLUC #### [facility] [address] [place] [address] Dr. Nayely Coleman/Julito Resist. Gene Not Applicable Normal NOT DETECTED [facility] Comment on above: Performed By: #### P OCGLUC #### [facility] [address] [place] [address] Dr. Nayely Ferrer VIM Resistant Gene Not detected Normal NOT DETECTED [facility] Comment on above: Performed By: #### P OCGLUC #### [facility] [address] [place] [address] Dr. Nayely Ferrer CBC AUTO DIFFon 06-16-2022 BASO # 0.1 103/ul Normal 0.0-0.1 [facility] Comment on above: Performed By: #### P OCGLUC #### [facility] [address] [place] [address] Dr. Nayely Ferrer Basophils/100 WBC (Bld) 0.3 % Normal 0.2-2.0 [facility] Comment on above: Performed By: #### P OCGLUC #### [facility] [address] [place] [address] Dr. Nayely Ferrer EO # 0.0 103/ul Normal 0.0-0.7 [facility] Comment on above: Performed By: #### P OCGLUC #### [facility] [address] [place] [address] Dr. Nayely Ferrer Eosinophils/100 WBC (Bld) 0.0 % Critically low 0.9-7.0 [facility] Comment on above: Performed By: #### P OCGLUC #### [facility] [address] [place] [address] Dr. Nayely Ferrer Erythrocyte distribution width (RBC) [Ratio] 13.2 % Normal 11.0-15.0 [facility] Comment on above: Performed By: #### P OCGLUC #### [facility] [address] [place] [address] Dr. Nayely Ferrer Hematocrit (Bld) [Volume fraction] 40.3 % Critically low 42.0-54.0 [facility] Comment on above: Performed By: #### P OCGLUC #### [facility] [address] [address] [address] Nayely Ferrer Hemoglobin (Bld) [Mass/Vol] 14.0 g/dL Normal 14.0-18.0 [facility] Comment on above: Performed By: #### P OCGLUC #### [facility] [address] [place] [address] Dr. Nayely Ferrer IG # 0.18 10e3/ul Critically high 0.00-0.03 [facility] Comment on above: Performed By: #### P OCGLUC #### [facility] [address] [place] [address] Dr. Nayely Ferrer IG % 1.0 % Critically high 0.0-0.5 [facility] Comment on above: Performed By: #### P OCGLUC #### [facility] [address] [place] [address] Dr. Nayely Ferrer LYMPH # 0.8 103/ul Critically low 1.2-3.8 [facility] Comment on above: Performed By: #### P OCGLUC #### [facility] [address] [place] [address] Dr. Nayely Ferrer Lymphocytes/100 WBC (Bld) 4.3 % Critically low 20.5-60.0 [facility] Comment on above: Performed By: #### P OCGLUC #### [facility] [address] [place] [address] Dr. Nayely Ferrer MANUAL DIFF REQ NO Normal [facility] Comment on above: Performed By: #### P OCGLUC #### [facility] [address] [place] [address] Dr. Nayely Ferrer MCH (RBC) [Entitic mass] 29.7 pg Normal 25.9-34.0 [facility] Comment on above: Performed By: #### P OCGLUC #### [facility] [address] [place] [address] Dr. Nayely Ferrer MCHC (RBC) [Mass/Vol] 34.7 g/dL Normal 29.9-35.2 [facility] Comment on above: Performed By: #### P OCGLUC #### [facility] [address] [address] [address] Nayely Ferrer MCV (RBC) [Entitic vol] 85.6 fL Normal 80.0-94.0 [facility] Comment on above: Performed By: #### P OCGLUC #### [facility] [address] [address] [address] Nayely Ferrer MONO # 0.8 103/ul Normal 0.3-0.8 [facility] Comment on above: Performed By: #### P OCGLUC #### [facility] [address] [place] [address] Dr. Nayely Ferrer Monocytes/100 WBC (Bld) 4.7 % Normal 1.7-12.0 [facility] Comment on above: Performed By: #### P OCGLUC #### [facility] [address] [place] [address] Dr. Nayely eFrrer NEUT # 15.7 103/ul Critically high 1.4-6.5 [facility] Comment on above: Performed By: #### P OCGLUC #### [facility] [address] [place] [address] Dr. Nayely Ferrer Neutrophils/100 WBC (Bld) 89.7 % Critically high 43.0-75.0 [facility] Comment on above: Performed By: #### P OCGLUC #### [facility] [address] [place] [address] Dr. Nayely Ferrer Platelet mean volume (Bld) [Entitic vol] 9.6 fL Normal 9.5-13.5 [facility] Comment on above: Performed By: #### P OCGLUC #### [facility] [address] [place] [address] Dr. Nayely Ferrer PLT 153 103/ul Normal 150-450 [facility] Comment on above: Performed By: #### P OCGLUC #### [facility] [address] [place] [address] Dr. Nayely Ferrer RBC 4.71 106/ul Normal 4.70-6.10 [facility] Comment on above: Performed By: #### P OCGLUC #### [facility] [address] [place], [place] [address] Dr. Nayely Ferrer WBC 17.5 103/ul Critically high 4.0-11.0 [facility] Comment on above: Performed By: #### P OCGLUC #### [facility] [address] [place], [place] [address] ABD/PELVIS WO CONon [...] ASIA BAXTER Date: 2022-06-16 20:11 Normal [facility] CULTURE BLOODon 06-16-2022 Microscopic examination of blood, culture Culture Observations: Aerobic bottle positive; BCID: E. Coli called to Emelyn Blue RN Culture Observations: Refer to accession #[id number] for susceptibilities Culture Observations: NO GROWTH IN ANAEROBIC BOTTLE AT 5 DAYS. Isolate 1 [id number] Growth of Normal [facility] Comment on above: Performed By: #### B LDCX2 #### [facility] [address] [place] [address] Dr. Nayely Ferrer Covid-19 PCR ([facility])on 05-23 SARS-CoV-2 (COVID-19) RNA JOSIE+probe Ql (Unsp spec) Not detected Normal NOT DETECTED [facility] Comment on above: Result Comment: [...] for this test is supported by the [employer] Gr[employer] of Health and Human Service's declaration that [...] used). Performed By: #### P OCGLUC #### [facility] [address] [place] [address] Dr. Nayely Ferrer ER URINE PROFILEon 3 Bilirubin Ql (U) Negative Normal NEGATIVE [facility] Comment on above: Performed By: #### P OCGLUC #### [facility] [address] [address] [address] Nayely Ferrer Clarity (U) SL CLOUDY Abnormal CLEAR [facility] Comment on above: Performed By: #### P OCGLUC #### [facility] [address] [address] [address] Nayely Ferrer Color (U) YELLOW Normal YELLOW [facility] Comment on above: Performed By: #### P OCGLUC #### [facility] [address] [address] [address] Nayely Ferrer ERUAHD A micrscopic examina tion will be performed if indicated. Normal [facility] Comment on above: Performed By: #### P OCGLUC #### [facility] [address] [place] [address] Dr. Nayely Ferrer Glucose Ql (U) >1000 Abnormal NEGATIVE [facility] Comment on above: Performed By: #### P OCGLUC #### [facility] [address] [place] [address] Dr. Nayely Ferrer Hemoglobin Ql (U) LARGE Abnormal NEGATIVE [facility] Comment on above: Performed By: #### P OCGLUC #### [facility] [address] [address] [address] Nayely Ferrer Ketones Ql (U) 40 mg/dl Abnormal NEGATIVE [facility] Comment on above: Performed By: #### P OCGLUC #### [facility] [facility] [address] [address] [address] Nayely Ferrer LEUKOCYTES TRACE Abnormal NEGATIVE [facility] Comment on above: Performed By: #### P OCGLUC #### [facility] [address] [place] [address] Dr. Nayely Ferrer Nitrite Ql (U) Positive Abnormal NEGATIVE [facility] Comment on above: Performed By: #### P OCGLUC #### [facility] [address] [place] [address] Dr. Nayely Ferrer pH (U) 5.5 [pH] Normal 5-9 [facility] Comment on above: Performed By: #### P OCGLUC #### [facility] [address] [place] [address] Dr. Nayely Ferrer Protein (U) [Mass/Vol] 100 mg/dL Abnormal NEGATIVE/ TRACE [facility] Comment on above: Performed By: #### P OCGLUC #### [facility] [address] [place] [address] Dr. Nayely Ferrer SPEC GRAVITY 1.025 Normal 1.005-<=1.0 25 [facility] Comment on above: Performed By: #### P OCGLUC #### [facility] [address] [place] [address] Dr. Nayely Ferrer UR MICRO IND INDICATED Normal [facility] Comment on above: Performed By: #### P OCGLUC #### [facility] [address] [place] [address] Dr. Nayely Ferrer Urobilinogen Qn (U) 0.2 {Ced'U}/dL Normal 0.2 - 1. 0 [facility] Comment on above: Performed By: #### P OCGLUC #### [facility] [address] [place] [address] Dr. Nayely Ferrer LACTATE/LACTIC ACIDon 2022 Lactate [Moles/Vol] 1.7 mmol/L Normal 0.4-1.9 [facility] Comment on above: Performed By: #### P OCGLUC #### [facility] [address] [place] [address] Dr. Nayely Ferrer PROF 14(COMP METB)on 023 Albumin [Mass/Vol] 2.7 g/dL Critically low 3.4-5.0 Th [facility] Comment on above: Performed By: #### P OCGLUC #### [facility] [address] [place] [address] Dr. Nayely Ferrer Albumin/Globulin [Mass ratio] 0.6 {ratio} Normal [facility] Comment on above: Performed By: #### P OCGLUC #### [facility] [address] [place] [address] Dr. Nayely Ferrer ALP [Catalytic activity/Vol] 82 U/L Normal 46-116 [facility] Comment on above: Performed By: #### P OCGLUC #### [facility] [address] [address] [address] Nayely Ferrer ALT [Catalytic activity/Vol] 21 U/L Normal 16-63 [facility] Comment on above: Performed By: #### P OCGLUC #### [facility] [address] [address] [address] Nayely Ferrer Anion gap [Moles/Vol] 16.8 mmol/L Normal [facility] Comment on above: Performed By: #### P OCGLUC #### [facility] [address] [address] [address] Nayely Ferrer AST [Catalytic activity/Vol] 18 U/L Normal 15-37 [facility] Comment on above: Performed By: #### P OCGLUC #### [facility] [address] [address] [address] Nayely Ferrer Bilirubin [Mass/Vol] 0.9 mg/dL Normal 0.2-1.0 [facility] Comment on above: Performed By: #### P OCGLUC #### [facility] [address] [address] [address] Nayely Ferrer Calcium [Mass/Vol] 8.8 mg/dL Normal 8.5-10.1 [facility] Comment on above: Performed By: #### P OCGLUC #### [facility] [address] [address] [address] Nayely Ferrer Chloride [Moles/Vol] 94 mmol/L Critically low 98-107 [facility] Comment on above: Performed By: #### P OCGLUC #### [facility] [address] [address] [address] Nayely Ferrer CO2 [Moles/Vol] 22.6 mmol/L Normal 21.0-32.0 [facility] Comment on above: Performed By: #### P OCGLUC #### [facility] [address] [address] [address] Nayely Ferrer Creatinine [Mass/Vol] 1.49 mg/dL Critically high 0.70-1.30 [facility] Comment on above: Performed By: #### P OCGLUC #### [facility] [address] [address] [address] Nayely Ferrer EGFR-AF ISRAELI >60 Normal >=60 [facility] Comment on above: Performed By: #### P OCGLUC #### [facility] [address] [address] [address] Nayely Ferrer EGFR-NON AF ISRAELI 51 mL/min/1.73m2 Critically low >=60 [facility] Comment on above: Performed By: #### P OCGLUC #### [facility] [address] [address] [address] Nayely Ferrer Globulin (S) [Mass/Vol] 4.4 g/dL Normal [facility] Comment on above: Performed By: #### P OCGLUC #### [facility] [address] [address] [address] Nayely Ferrer Glucose [Mass/Vol] 346 mg/dL Critically high 74-106 [facility] Comment on above: Performed By: #### P OCGLUC #### [facility] [address] [address] [address] Nayely Ferrer Potassium [Moles/Vol] 3.4 mmol/L Critically low 3.5-5.1 [facility] Comment on above: Performed By: #### P OCGLUC #### [facility] [address] [address] [address] Nayely Ferrer Protein [Mass/Vol] 7.1 g/dL Normal 6.4-8.2 [facility] Comment on above: Performed By: #### P OCGLUC #### [facility] [address] [address] [address] Nayely Ferrer Sodium [Moles/Vol] 130 mmol/L Critically low 136-145 [facility] Comment on above: Performed By: #### P OCGLUC #### [facility] [address] [address] [address] Nayely Ferrer Urea nitrogen [Mass/Vol] 16.0 mg/dL Normal 7.0-18.0 [facility] Comment on above: Performed By: #### P OCGLUC #### [facility] [address] [place] [address] Dr. Nayely Ferrer Urea nitrogen/Creatinine [Mass ratio] 10.7 mg/mg Normal [facility] Comment on above: Performed By: #### P OCGLUC #### [facility] [address] [place] [address] Dr. Nayely Ferrer URINE MICROSCOPIC ONLYon BACTERIA LARGE Abnormal NONE SEEN [facility] Comment on above: Performed By: #### P OCGLUC #### [facility] [address] [place] [address] Dr. Nayely Ferrer Bacteria identified Cx Nom (U) INDICATED Normal [facility] Comment on above: Performed By: #### P OCGLUC #### [facility] [address] [place] [address] Dr. Nayely Ferrer CAST NONE SEEN Normal NONE SEEN [facility] Comment on above: Performed By: #### P OCGLUC #### [facility] [address] [place] [address] Dr. Nayely Ferrer Crystals LM Nom (Urine sed) NONE SEEN Normal NONE SEEN [facility] Comment on above: Performed By: #### P OCGLUC #### [facility] [address] [place] [address] Dr. Nayely Ferrer Epithelial cells LM Ql (Urine sed) FEW Abnormal NONE SEEN /RARE [facility] Comment on above: Performed By: #### P OCGLUC #### [facility] [address] [place] [address] Dr. Nayely Ferrer MUCOUS NONE SEEN Normal NONE SEEN [facility] Comment on above: Performed By: #### P OCGLUC #### [facility] [address] [place] [address] Dr. Nayely Ferrer RBC (U) [#/Vol] /uL Abnormal 0-2 [facility] Comment on above: Performed By: #### P OCGLUC #### [facility] [address] [place] [address] Dr. Nayely Ferrer WBC 75-100 Abnormal NONE SEEN [facility] Comment on above: Performed By: #### P OCGLUC #### [facility] [address] [place] [address] Dr. Nayely Ferrer Ambulatory Visit Summaryon 0 - Ambulatory Visit Summary SHILO WARD :1975 Visit Date:05/17/2022 Ambulatory Visit Instructions Your Diagnosis Bile reflux esophagitis Chronic GERD BMI 38.0-38.9,adult Your Care Team Attending Physician - JOSE ANGEL MCKEE, Khadar Reed Primary Care Physician - Fer Feliz MD This Is Your Medications List Contact prescribing [...] Hypertriglyceridemia Hyperuricemia IBS (irritable bowel syndrome) Insulinoma Bync-Twrxl-Xfeihmw disease Lumbar disc disease Migraines Normal [facility] General Surgery Office/Clini c Noteon 05-17-2022 General [...] Hypertriglyceridemia Hyperuricemia IBS (irritable bowel syndrome) Insulinoma Iiao-Nparl-Fydgnvu disease Lumbar disc disease Migraines Historical No [...] influenza virus vaccine, inactivated 02/15/2022 Recorded SARSCoV2 mRNA(asqpdypcj-dddc-cwghlk) vac 11/29/2021 Recorded SARS-CoV-2 (COVID-19) mRNA BNT-162b2 vax 05/02/2021 Recorded 2022-04-19: TPV40 SARS-CoV-2 (COVID-19) mRNA BNT-162b2 vax 08/07/2020 Recorded 2022-04-19: TPV40 SARS-CoV-2 (COVID-19) mRNA BNT-162b2 vax 07/18/2020 Recorded 2022-04-19: TPV40 Normal [facility] Comment on above: Result Comment: Elec tronically Signed By: JOSE ANGEL MCKEE, Khadar Canchola\Date and Time Signed: 05/17/22 15:50 EST Pathology Noteon 05-10-2022 Pathology Note [id number]#1.00CD:[address] [facility] Operative Reporton Operative Report [id number]#1.00CD:[address] [facility] POINT OF CARE GLUCOSEon 04-21 Glucose [Mass/Vol] 153 mg/dL Critically high 74-106 [facility] Comment on above: Performed By: #### P OCGLUC #### [facility] [address] [place] [address] Dr. Nayely Ferrer Lab Reportson 05-06-2022 Lab Reports [id number]#1.00CD:[address] [facility] Covid-19 PCR (CVDTBH)on 04-21 SARS-CoV-2 (COVID-19) RNA JOSIE+probe Ql (Unsp spec) Not detected Normal NOT DETECTED [facility] Comment on above: Result Comment: This test is not yet approved or cleared by the [place] FDA. When there are no FDA-approved or cleared tests available, and other criteria are met, FDA can make tests available under an emergency access mechanism called an Emergency Use Authorization (EUA). The EUA for this test is supported by the Happy of Health and Human Service's (HHS's) declaration [...] consistent with SARS-CoV-2. Performed By: #### C VDTBH #### [facility] [address] [place] [address] Dr. Nayely Ferrer Consent for Procedure/Surger yon 04-23-2022 Consent for Procedure/Surgery [id number]#1.00CD:[address] [facility] Physician Referralon 022 Physician Referral [id number]#1.00CD:[address] [facility] Covid-19 PCR (CVDTB)on 11-20 SARS-CoV-2 (COVID-19) RNA JOSIE+probe Ql (Unsp spec) Detected Critically abnormal NOT DETECTED [facility] Comment on above: Result Comment: This test is not yet approved or cleared by the [place] FDA. When there are no FDA-approved or cleared tests available, and other criteria are met, FDA can make tests available under an emergency access mechanism called an Emergency Use Authorization (EUA). The EUA for this test is supported by the Instrument [employer] Grinder of Health and Human Service's (HHS's) declaration [...] used). Performed By: #### P OCGLUC #### [facility] [address] [place] [address] Dr. Nayely Ferrer Outside Colonoscopyon 2021 Outside Colonoscopy [id number]#1.00CD:[address] [facility] Reminderson 10-25-2021 Reminders - From: Beverley Rizvi LPN To: GSN - Clinical; Sent: 10/25/2021 10:31:26 EDT Show up: 09/25/2031 07:00:00 EDT Subject: colonoscopy recall Due Date/Time: 10/25/2031 07:00:00 EDT Reminder/Recall Patient is due for screening colonoscopy 10/25/2031. Normal [facility] POINT OF CARE GLUCOSEon 07-0 Glucose [Mass/Vol] 209 mg/dL Critically high 74-106 [facility] Comment on above: Performed By: #### P OCGLUC #### [facility] [address] [place], [place] [address] Dr. Nayely Ferrer Consent for Procedure/Surger yon 09-20-2021 Consent for Procedure/Surgery [id number]#1.00CD:[address] [facility] Facesheeton 09-19-2021 Facesheet [id number]#1.00CD:[address] [facility] RAD - CT Reporton 09-14-2021 RAD - CT Report [id number]#1.00CD:[address] [facility] Historical Records Officeon 09-13-2021 Historical Records Office [id number]#1.00CD:[address] [facility] Physician Referralon 022 Physician Referral [id number]#1.00CD:127 [facility] Vital Signs Date Time Vital Sign Value Performing Clinician Faci lity 02-27-2024 08:34-0500 Body height 177.8 cm Zhanna Rincon MD Work Phone: [facility] 02-27-2024 08:34-0500 Diastolic blood pressure 76 mm[Hg] Zhanna Rincon MD Work Phone: [facility] 02-27-2024 08:34-0500 Systolic blood pressure 128 mm[Hg] Zhanna Rincon MD Work Phone: [facility] 01-20-2024 15:05-0400 Body height 177.8 cm Zhanna Rincon MD Work Phone: [facility] 01-20-2024 15:05-0400 Diastolic blood pressure 82 mm[Hg] Zhanna Rincon MD Work Phone: [facility] 01-20-2024 15:05-0400 Systolic blood pressure 134 mm[Hg] Zhanna Rincon MD Work Phone: [facility] 04-19-2022 14:49-0500 Blood Pressure Location Khadar NILL [facility] 04-19-2022 14:49-0500 Diastolic blood pressure 94 mm[Hg] Khadar NILL [facility] 04-19-2022 14:49-0500 Heart rate 70 /min Khadar NILL [facility] 04-19-2022 14:49-0500 Respiratory rate 16 /min Khadar NILL [facility] 04-19-2022 14:49-0500 Systolic blood pressure 124 mm[Hg] Khadar NILL [facility] 09-18-2021 13:43-0400 Blood Pressure Location Khadar NILL [facility] 09-18-2021 13:43-0400 Diastolic blood pressure 78 mm[Hg] Khadar NILL [facility] 09-18-2021 13:43-0400 Heart rate 76 /min Khadar NILL [facility] 09-18-2021 13:43-0400 Respiratory rate 16 /min Khadar NILL [facility] 09-18-2021 13:43-0400 Systolic blood pressure 126 mm[Hg] Khadar NILL [facility] Encounters Encounter Date Encounter Type Care Provider Facility Start: 02-27-2024 End: 02-27-2024 Bamboo flowspaulo Rincon MD Work Phone: [facility] Start: 02-27-2024 End: 02-27-2024 Bamedieo mague Rincon MD Work Phone: [facility] Start: 02-27-2024 End: 02-27-2024 Office outpatient visit 15 minutes Zhanna Rincon MD Work Phone: [facility] Comment on above: Dizziness and giddin ess (Primary Dx); Mucous retention cyst of maxillary sinus Start: 02-27-2024 End: 02-27-2024 ambulatory ZHANNA H TIMMIS Not Available Start: 01-23-2024 End: 02-03-2024 Telephone encounter Zhanna Rincon MD Work Phone: [facility] Start: 01-21-2024 End: 01-21-2024 ambulatory ZHANNA H TIMMIS Not Available Start: 01-20-2024 End: 01-20-2024 Office outpatient visit 25 minutes Zhanna Rincon MD Work Phone: [facility] Comment on above: Dizziness and giddin ess (Primary Dx); Otalgia, bilateral; Chronic sinusitis, unspecified location; Bilateral impacted cerumen Start: 01-20-2024 End: 01-20-2024 ambulatory ZHANNA H TIMMIS Not Available Start: 01-20-2024 End: 01-20-2024 Bamboo flowspaulo Rincon MD Work Phone: [facility] Start: 01-20-2024 End: 01-20-2024 Bamboo flowspaulo Rincon MD Work Phone: [facility] Start: 01-12-2024 End: 01-12-2024 ambulatory JESÚS SAUNDERS Not Available Start: 11-24-2023 End: 11-24-2023 ambulatory ZHANNA H TIMMIS Not Available Start: 10-26-2023 End: 10-27-2023 Emergency department patient visit ALMA LIN [facility] Start: 10-14-2023 End: 10-14-2023 ambulatory ERLIN CARDENAS [facility] Start: 10-13-2023 End: 10-13-2023 ambulatory [address] [facility] Start: 09-08-2023 End: 09-08-2023 ambulatory FER FELIZ [facility] Start: 08-27-2023 End: 08-27-2023 ambulatory RADHA [facility] Start: 08-23-2023 End: 08-24-2023 ambulatory GERMAN GARCIA [facility] Start: 08-23-2023 End: 08-23-2023 Emergency department patient visit FER FELIZ [facility] Start: 12-06-2022 End: 12-07-2022 ambulatory FER FELIZ [facility] Start: 07-08-2022 End: 07-09-[address] FER FELIZ . Facility:[facility] Start: 06-21-2022 End: 07-02-[address] FER FELIZ . Facility:[facility] Start: 06-17-2022 End: 06-20-2022 Evaluation and management of inpatient DR FER FELIZ . Facility:[facility] Start: 05-17-2022 End: 05-18-2022 ambulatory Khadar WALTER Facility:[facility] Start: 05-17-2022 End: 05-17-2022 Patient encounter procedure Khadar WALTER [facility] Start: 05-10-2022 Encounter for preprocedural laboratory examination DR KHADAR WALTER . [facility] Start: 05-08-2022 End: 05-09-2022 ambulatory Khadar WALTER Facility:[id number] Start: 05-03-2022 End: 05-04-[address] KHADAR WALTER . Facility:[facility] Start: 05-03-2022 End: 05-04-2022 Encounter for preprocedural laboratory examination DR KHADAR WALTER . Facility:[facility] Start: 04-19-2022 End: 04-20-2022 ambulatory Fer Feliz PROVIDER Facility: [facility] Start: 04-19-2022 End: 04-19-2022 Patient encounter procedure Khadar Brianna JOSE ANGEL [facility] [place] Start: 12-13-2021 End: 12-13-[address] FER FELIZ . Facility: Start: 10-24-2021 End: 10-25-2021 ambulatory Khadar WALTER Facility:CD:[id number] Start: 10-20-[address] FER FELIZ . Facili ty: Start: 09-18-2021 End: 09-19-2021 ambulatory Fer Feliz PROVIDER Facility: [facility] Start: 09-18-2021 End: 09-18-2021 Patient encounter procedure Khadar WALTER [facility] Start: 09-12-2021 ambulatory Khadar WALTER Facility:[facility] Start: 09-06-2021 ambulatory Fer Feliz PROVIDER Fa cility: [facility] Procedures Date Procedure Procedure Detail Performing Clinician Start: 08-27-2023 Follow-up visit Follow-up RADHA AVITIA Start: 06-19-2022 Insertion of Infusion Device into Upper Vein, Percutaneous Approach DR FER FELIZ . Start: 05-08-2022 Esophagogastroduodenoscopy Khadar WALTER Start: 10-24-2021 Colonoscopy Khadar JOSE ANGEL History of operative procedure on hip Khadar WALTER Plan of Treatment Date Care Activity Detail Author Start: 02-27-2024 End: 02-27-2024 Patient encounter procedure 02/27/2024 9:00 AM EST Office Visit [facility] [address] [facility] [address] [place] [address] Zhanna Rincon MD [address] [facility] [address] [place] [address] Arrived [facility] Comment on above: Arrived Start: 01-20-2024 End: 01-20-2024 Patient encounter procedure 01/20/2024 3:20 PM EDT Office Visit [facility] [address] [place] [address] [place] [address] Zhanna Rincon MD [address] [facility] [address] [place] [address] Arrived [facility] Comment on above: Arrived Start: 12-21-2023 Influenza vaccination Influenza Vacc ine (#1) [facility] Start: 1975 Screening for malign ant neoplasm of colon [facility] Immunizations Immunization Date Immunization Notes Care Provider Fa cility 02-15-2022 influenza virus vaccine, unspecified formulation Khadar NILL [facility] 11-29-2021 SARS-CoV-2 mRNA (uuvqqqyvegy-aofx-pvnmn se) vaccine Khadar NILL [facility] 05-02-2021 SARS-CoV-2 (COVID-19 ) mRNA BNT-162b2 vax Khadar NILL [facility] Comment on above: Result Comment: 2021: TPV40 08-07-2020 SARS-CoV-2 (COVID-19 ) mRNA BNT-162b2 vax Khadar NILL [facility] Comment on above: Result Comment: 2021: TPV40 07-18-2020 SARS-CoV-2 (COVID-19 ) mRNA BNT-162b2 vax Khadar NILL [facility] Comment on above: Result Comment: 2021: TPV40 Payers Date Payer Category Payer Private Health Insurance [employer] [id number] 2023 Unknown [employer] [id number] 2023-Present [address] [place] [address] [id number] 1975 Unknown [id number] 2.16.840.1.859724.3.579.2. 727 1975 Unknown [id number] 2.16.840.1.818700.3.579.2. 727 1977 Unknown [id number] 2.16.840.1.045199.3.579.2. 727 1977 Unknown [id number] 2.16.840.1.744466.3.579.2. 727 1977 Unknown [id number] 2.16.840.1.162857.3.579.2. 727 1977 Unknown [id number] 2.16.840.1.228028.3.579.2. 727 1977 Unknown [id number] 2.16.840.1.197695.3.579.2. 593 1977 Unknown [id number] 2.16.840.1.432867.3.579.2. 593 1977 Unknown [id number] 2.16.840.1.398556.3.579.2. 593 1977 Unknown [id number] 2.16.840.1.785423.3.579.2. 593 1977 Unknown [id number] 2.16.840.1.794826.3.579.2. 593 1977 Unknown [id number] 2.16.840.1.743211.3.579.2. 593 1977 Unknown [id number] 2.16.840.1.735025.3.579.2. 593 1977 Unknown [id number] 2.16.840.1.594489.3.579.2. 593 1977 Unknown [id number] 2.16.840.1.730017.3.579.2. 173 1977 Unknown [id number] 2.16.840.1.183173.3.579.2. 1286 1977 Unknown [id number] 2.16.840.1.159073.3.579.2. 1286 1977 Unknown [id number] 2.16.840.1.342529.3.579.2. 1286 1977 Unknown [id number] 2.16.840.1.158699.3.579.2. 1286 1977 Unknown [id number] 2.16.840.1.092219.3.579.2. 1286 1977 Unknown [id number] 2.16.840.1.773181.3.579.2. 1286 1977 Unknown [id number] 2.16.840.1.723156.3.579.2. 1286 1977 Unknown [id number] 2.16.840.1.294521.3.579.2. 1286 1977 Unknown [id number] 2.16.840.1.717189.3.579.2. 1259 1977 Unknown [id number] 2.16.840.1.164586.3.579.2. 1259 1977 Unknown [id number] 2.16.840.1.722136.3.579.2. 1259 1977 Unknown [id number] 2.16.840.1.469098.3.579.2. 1259 1977 Unknown [id number] 2.16.840.1.668117.3.579.2. 1259 1959 Unknown [id number] Social History Date Type Detail Facility Start: 09-18-2021 End: 11-19-2023 Tobacco smoking status Never smoked tobacco (finding) [facility] Tobacco smoking status Never [facility] Start: 11-24-2023 End: 01-20-2024 Sex Assigned At Male [facility] Start: 11-19-2023 Tobacco use and exposure Smokeless tobacco non-user [facility] Start: 11-24-2023 End: 02-27-2024 Alcoholic beverage intake Current drinker of alcohol (finding) [facility] Start: 11-24-2023 End: 01-20-2024 History of Social function [facility] Start: 1975 Sex assigned at Not on file [facility] Functional Status Date Assessment Result Facility 04-19-2022 Functional Status N/A [facility] Clinical Notes 09-18-2021 to 02-27-2024 Zhanna Rincon MD - 02/27/2024 9:00 AM ESTTelephone Encounter - Dari Damaris - 02/03/2024 8:49 AM EDTTelephone Encounter - [facility] Damaris - 02/03/2024 8:49 AM EDT Note Date & Type Note Facility 02-27-2024 History of Presen t illness Narrative Subjective Patient ID: Shilo Villagran Case is a 49 y.o. male who presents for Sinusitis ([facility] 02/13/24) Pt presents after getting CT from Dr Feliz. CT reviewed and there is no sinus dz, but there is a left maxillary sinus retention cyst. Getting an MRI due to apparent enlarged sella. Pt reports overall he is feeling better. Family History Problem Relation Name Age of Onset Diabetes Mother Other (HTN) Mother Other (Chronic kidney disease) Mother Diabetes Father Diabetes type II Brother x2 Active Ambulatory Problems Diagnosis Date Noted Kidney stone 08/27/2023 Prostate cancer screening 06/12/2021 Urinary frequency 06/12/2021 Acne 11/19/2023 Hyponatremia 11/19/2023 Sepsis ([facility] [place]) 11/19/2023 COVID-19 11/19/2023 Hyperuricemia 11/19/2023 Insulinoma 11/19/2023 Acute nontraumatic kidney injury ([facility] 11/19/2023 Sinus tachycardia 11/19/2023 GERD (gastroesophageal reflux disease) 11/19/2023 Overweight 11/19/2023 Lumbar disc disease 11/19/2023 Constipation 11/19/2023 Balanitis 11/19/2023 Acute cystitis without hematuria 11/19/2023 Acute sinusitis 11/19/2023 IBS (irritable bowel syndrome) 11/19/2023 Diverticulitis 11/19/2023 Hypertriglyceridemia ([facility]) 11/19/2023 Borderline diabetes mellitus 11/19/2023 Glaucoma ([facility]) 11/19/2023 Migraine headache ([facility]) 11/19/2023 Gynecomastia 11/19/2023 Auez-Gjjaj-Alsoffw disease 11/19/2023 Resolved Ambulatory Problems Diagnosis Date Noted No Resolved Ambulatory Problems Past Medical History: Diagnosis Date Ear problems Past Surgical History: Procedure Laterality Date COLONOSCOPY EGD Allergies Allergen Reactions Penicillins Current Outpatient Medications on File Prior to Visit Medication Sig Dispense Refill cetirizine (ZyrTEC) 10 MG tablet Take 20 mg by mouth Daily fluticasone (Flonase) 50 MCG/ACT nasal spray Administer 2 sprays into each nostril Daily Shake gently. Before first use, prime pump. After use, clean tip and replace cap. 16 g 11 glimepiride (Amaryl) 1 MG tablet Take 1 mg by mouth in the morning. Take before meals. montelukast (Singulair) 10 MG tablet Take 10 mg by mouth Daily pantoprazole (ProtoNix) 40 MG EC tablet Take 40 mg by mouth Daily tamsulosin (Flomax) 0.4 MG 24 hr capsule Take 0.4 mg by mouth in the morning. [DISCONTINUED] ciprofloxacin-dexAMETHasone (CiproDEX) otic suspension Administer 4 drops into each ear in the morning and 4 drops before bedtime. [DISCONTINUED] polyethylene glycol, PEG, 3350 (Glycolax) 17 GM/SCOOP powder Take 17 g by mouth in the morning. No current facility-administered medications on file prior to visit. Objective Last Recorded Vitals Vitals: 02/27/24 0834 BP: 128/76 ENT Physical Exam Constitutional Appearance: patient appears well-developed, well-nourished and well-groomed, Communication/Voice: communication appropriate for developmental age; vocal quality normal; Assessment/Plan Diagnoses and all orders for this visit: Dizziness and giddiness Follow through with testing as planned Mucous retention cyst of maxillary sinus No tx needed documented in this encounter [facility] 02-03-2024 Telephone encounter Note Called pt to schedule follow up appt/he said his PCP is ordering a CT. PT will call back to schedule once he knows when the CT will be. [facility] 02-03-2024 Miscellaneous Notes Called pt to schedule follow up appt/he said his PCP is ordering a CT. PT will call back to schedule once he knows when the CT will be. Pt needs F/U appt to review xray results documented in this encounter [facility] 01-23-2024 Telephone encounter Note Pt needs F/U appt to review xray results [facility] 01-20-2024 History of Presen t illness Narrative [...] mellitus 11/19/2023 Glaucoma (CMS/HCC) 11/19/2023 Migraine headache ([facility]) 11/19/2023 Gynecomastia 11/19/2023 Jdwa-Clpvj-Fzauueu disease 11/19/2023 Resolved Ambulatory Problems Diagnosis Date [...] cerumen Ears debrided documented in this encounter [facility] 05-08-2022 Note OPERATIVE NOTE OPERATION DATE: 05/08/2022 [...] good condition. CC: Patient's family doctor. [facility] 04-20-2022 Note Chief Complaint consultation [...] Hypertriglyceridemia Hyperuricemia IBS (irritable bowel syndrome) Insulinoma Dobq-Uidxq-Ouyckpg disease Lumbar disc disease Migraines Historical No [...] and Father. Hyper (more content not included)... [facility] Comment on above: Result Comment: Elec tronically Signed By: JOSE ANGEL MCKEE, Khadar Canchola\Date and Time Signed: 04/20/22 10:56 EST 10-24-2021 [...] screening should be in 10 years. : [facility] Signed and Approved by: DR KHADAR WALTER . 10/29/2021 17:17:00 [facility] 09-18-2021 Note Chief Complaint consultation for LLQ [...] did have nonspecific colitis on colonoscopy in 2014, confirmed with biopsies, no treatment for IBD; [...] Hypertriglyceridemia Hyperuricemia IBS (irritable bowel syndrome) Insulinoma Yjgw-Ssfyk-Xuxpdmb disease Migraines Historical No qualifying data Procedure/Surgical [...] Father. Hypertension: Mother and Father. Stroke: Mother. [facility] Comment on above: Result Comment: Elec tronically Signed By: JOSE ANGEL MCKEE, Khadar Beckwith.gunjan\Date and Time Signed: 09/18/21 17:37 EDT Evaluation + Plan note No data available for this section General [facility] Evaluation note Diagnosis Dizziness and giddiness- Primary Otalgia, bilateral Chronic sinusitis, unspecified location Bilateral impacted cerumen Impacted cerumen [facility] Diagnosis Dizziness and giddiness- Primary Mucous retention cyst of maxillary sinus [facility] No data available for this section General [facility] Progress note No data available for this section [facility] Summary Purpose Family History No Family History [...] team informatio n (unrecognized section and content) Photo Finisher Relationship Specialty Start Date End Date Fer Feliz MD [address] [facility] [place] [address] PCP - General Family Medicine 11/14/23 Photo Finisher Relationship Specialty Start Date End Date Fer Feliz MD [address] [facility] [place] [address] PCP - General Family Medicine 11/14/23 Photo Finisher Relationship Specialty Start Date End Date Fer Feliz MD [address] [facility] [place] [address] PCP - General Family Medicine 11/14/23 Photo Finisher Relationship Specialty Start Date End Date Fer Feliz MD [address] [facility] [place] [address] PCP - General Family Medicine 11/14/23 Photo Finisher Relationship Specialty Start Date End Date Fer Feliz MD [address] [place] [phone] PCP - General Family Medicine 11/14/23 (unrecognized sect ion and content) No Status Records FoundNo Status Records FoundNo Status Records FoundNo Status Records FoundNo Status Records FoundNo Status Records FoundNo Status Records Found INFORMATION SOURCE (unrecogn ized section and content) DATE CREATED AUTHOR 05/23/2022 [facility] DATE CREATED AUTHOR AUTHOR'S ORGANIZ ATION 07/14/2022 [facility] DATE CREATED AUTHOR AUTHOR'S ORGANIZ ATION 12/08/2022 Louann Shepherd [facility] DATE CREATED AUTHOR AUTHOR'S ORGANIZ ATION 08/25/2023 [facility] DATE CREATED AUTHOR AUTHOR'S ORGANIZ ATION 10/16/2023 [facility] DATE CREATED AUTHOR AUTHOR'S ORGANIZ ATION 10/27/2023 [facility] DATE CREATED AUTHOR AUTHOR'S ORGANIZ ATION 02/29/2024 [facility] EPIC Reason for Visit (unrecogniz ed section and content) Reason Comments Ear Problem Follow up audio 01/[address] [facility] 02/13/24 FOR RECORDS PERTAINING TO PATIENTS WHO ARE [...] BE BASED ON THE PRIMARY CLINICAL RECORDS. [employer] provides no warranty or guarantee of the accuracy or completeness of information in this document.
== END 2024-03-12 09:02 | disposition home or self-care (01) ==
LOC: MRI 09:01
PROVIDERS: PCP Family Medicine; Visit Provider Family Medicine
DX: E23.6 Other disorders of pituitary gland (principal)
CPT/HCPCS: 70553; A9575

== ENCOUNTER 2024-07-22 16:41 | Outpatient (OUT) | payer OTHER, SELFPAY ==
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
[2024-07-22 17:02] LABS: Bilirubin Urine NEGATIVE (NEGATIVE); Blood Urine NEGATIVE (NEGATIVE); Clarity Urine CLEAR (CLEAR); Color Urine LT. YELLOW (YELLOW); Glucose Urine UA NEGATIVE (NEGATIVE); Ketones Urine NEGATIVE (NEGATIVE); Leukocyte Esterase Urine NEGATIVE (NEGATIVE); Nitrite Urine NEGATIVE (NEGATIVE); Protein Urine NEGATIVE (NEG/TRACE); Urobilinogen Urine 0.2 EU/dL (0.2-1.0)
[2024-07-22 17:12] LABS: Bacteria Urine NONE SEEN #/HPF (NONE SEEN); RBC Urine 0-2 #/HPF (0-2); WBC Urine NONE SEEN #/HPF (NONE SEEN)
[2024-07-22 17:13] LABS: Cast Seen? NONE SEEN #/LPF (NONE SEEN); Crystals Seen? None Seen #/HPF (None Seen); Mucus Urine NONE SEEN (NONE SEEN); Squamous Epithelial Cell Urine FEW #/LPF (NONE/RARE); Urine Culture Indicated NO
== END 2024-07-22 16:42 | disposition home or self-care (01) ==
LOC: LAB 16:43
PROVIDERS: PCP Family Medicine; Visit Provider Family Medicine
DX: N30.00 Acute cystitis without hematuria (principal)
CPT/HCPCS: 81001; 87086

== ENCOUNTER 2024-12-04 06:35 | Outpatient (OUT) | payer OTHER, SELFPAY ==
--- OUTSIDE RECORDS SUMMARY | 2024-07-22 11:45 | XMS_ITS ---
Author Organization [facility] in [place] Address [address] [place] [address] Care Team Providers Care Investment Accountant Name Role Phone Nicola Feliz Primary Care [...] 07/22/2024 Encounters Encounter Location Date Provider Diagnosis [facility] [address] [place] [address] 07/22/2024 Nicola Feliz Acute cystitis witho ut [...] * Shilo VEGAS EDOB:1975 (49 yo M)Acc No.[id number]:07/22/2024 Progress Note Patient: Shilo FORREST Provider: Karime Feliz ([facility])MD :1975 A ge:49 Y S ex:Male Date:07/22/2024 [place] [place]note 2[facility] Check In:03:24 PM ESTCheck O ut:04:32 PM [...] exam, routi ne Modified On:08/30/2022 Status:confirmed M91.10 Wich-Mccnt-Kqattzt d isease Modified On:08/30/2022 Status:confirmed N17.9 Acute [...] is a n onsmoker * Medications: T Xanic Glucose Monitor System w/Device Kit as directed [...] 0 07/22/2024 Generated for Paula jenkins/Hakan/Robertitting on: 0 12/04/2024 06:41 AM EDT History and Physical Notes * [...]
--- OUTSIDE RECORDS SUMMARY | 2024-07-27 07:19 | XMS_ITS ---
Author Organization The [facility] in [place] Address [address] [place] [address] Care Team Providers Care Medical Physics Professor Name Role Phone Nicola Feliz Primary Care Provider [phone] REASON FOR VISIT review urine Encounters Encounter Location Date Provider Diagnosis [facility] [place] [address] [place] [address] 07/27/2024 Nicola Feliz Plan Of Treatment No Information Progress Notes * Shilo VEGAS EDOB:1975 (49 yo M)Acc No.[id number]:07/27/2024 Patient: Shilo FORREST :1975 A ge:49 Y S ex:Male Address:[address] [place], [address] * true * Date: Generated for Paula jenkins/Hakan/eTransmitting on: 0 12/04/2024 06:41 AM EDT
--- OUTSIDE RECORDS SUMMARY | 2024-12-03 06:45 | XMS_ITS ---
Author Organization The [facility] in [place] Address [address] [place] [address] Care Team Providers Care Board Liner Operator Name Role Phone Nicola Feliz Primary Care Provider Allergies Allergen (clinical drug ingredient) Drug/Non Drug Allergy documented on EMR Reaction Allergy Type Onset Date Status Penicillin rash Drug Allergy Active Results Component Value Reference Range Notes UA DIP NONAUTO WO MICRO (810 02) - IN OFFICE (Not yet reviewed by provider) Interpretation: Performing Lab: Notes/Report: COLOR yellow CLARITY [...] 12/03/2024 Encounters Encounter Location Date Provider Diagnosis [facility] [address] [place] [address] 12/03/2024 Nicola Hoy Acute UTI N39.0 ; [...] TOTAL 12/03/2024 LIPID PANEL (CHOL/TRIG/HDL/LDL) 12/04/19 25 UA DIP NONAUTO WO MICRO (24882) - IN OFF ICE 12/03/2024 THYROID PANEL (T4/TSH/FREE T3) 5 PSA, SCREENING 12/03/2024 CMP (COMP MET PLUMMER) w/eGFR CKD-EPI 2024 CBC WITH DIFF 12/03/2024 Progress Notes * Shilo VEGAS EDOB:1975 (49 yo M)Acc No.[id number]:12/03/2024 UNLOCKED PROGRESS NOTE Progress Note Patient: Shilo FORREST Provider: Karime Feliz ([facility])MD :1975 A ge:49 Y S ex:Male Date:12/03/2024 Address:[facility] [address], [id number] Check In:10:24 AM ESTCheck O ut:11:45 AM [...] enies. S wollen joints d enies. * Medical History: A cne, Hyponatremia, Sepsis, COVID-19, Hyperuricemia, Insulinoma, Acute nontraumatic kidney injury, Sinus tachycardia, GERD (gastroesophageal reflux disease), Over weight, Lumbar disc disease, Constipation, Balanitis, Acute cystitis without hematuria, Acute sinusitis, Well adult, IBS (irritable bowel syndrome), Diverticulitis, Esophageal reflux, Physical exam, routine, Hypertriglyceridemia, Borderline diabetes mellitus, Glaucoma, Migraine headache, Gynecomastia, Bqxl-Hqbeg-Wphymof disease, Headache, unspecified. * Surgical History: C [...] essential hypertension, Chronic kidney disease, unspecified. B jhoan(s): alive, diagnosed with Diabetes mellitus without mention [...] L ab: UA DIP NONAUTO WO MICRO (79306) - IN OFFICE (Collection Date & Time [...] WO MICRO * Preventive Medicine: Screenings/Counseling: B SC ACTION PLAN Above Normal BMI Follow-up D ietary management education, guidance, and counseling See treatment section of progress note for complete details of management plan. * * Electronic signature of Nicola Feliz MD, [id number] on 12/04/2024 at 06:41 AM EDT Sign off status: Pending Visit Status: C HK (Check Out) * Provider: Karime Feliz ([facility])MD Date: 0 12/03/2024 Generated for Printi ng/Faxing/eTransmitting on: 0 12/04/2024 06:41 AM EDT History [...]
--- OUTSIDE RECORDS SUMMARY | 2024-12-04 06:41 | XMS_ITS | Patient Health Record ---
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 Name Role Phone Nicola Ho Primary Care Provider [phone] Brit Monteiro Lou [phone] Allergies Allergen (clinical drug ingredient) Drug/Non Drug [...] UROBILINOGEN neg NITRITE neg LEUKOCYTE ESTERASE neg UA (Urinalysis, Dipstix only - w/o micro) Reviewed date:07/22/2024 05:17:41 PM Interpretation: Performing Lab: Notes/Report: COLOR yellow Yellow - Ivette - CLARITY clear Clear - Clear GLUCOSE ++ 0 - 133 MG/DL ALBUMIN n NEG - NEG MG/DL BILIRUBIN n NEG - NEG MG/DL SPECIFIC GRAVITY 1.010 1.001 - 1.035 KETONES n NEG - NEG MG/DL BLOOD, UR n PH, UR 5 5 - 9 UROBILNOGEN n 0.2 - 1 MG/DL NITRITE n NEG - NEG ESTERASE (GURDEEP) n NEG - NEG MG/DL UA DIP NONAUTO WO MICRO (810 02) - IN OFFICE Reviewed date:07/22/2024 05:17:41 PM Interpretation: Performing Lab: Notes/Report: COLOR yellow CLARITY clear GLUCOSE n BILIRUBIN n KETONE n SPECIFIC GRAVITY 1.010 BLOOD n PH 5 PROTEIN trace UROBILINOGEN n NITRITE + LEUKOCYTE ESTERASE n MR pituitary wo/w con Reviewed date:03/15/2024 02:05:23 PM Interpretation: Performing Lab: Notes/Report: Source Facility: [place] [address] [place] [address] Magnetic Resonance Report Signed Patient: Shilo Vegas MR#: [id number] : 1975 Acct:[id number] Age/Sex: 49 / M ADM Date: 03/12/24 Loc: MRI Attending Dr: Fer Ho M.D. Ordering Physician: Fer Ho M.D. Date of Service: 03/12/24 Procedure(s): MR pituitary wo/w con Accession Number(s): [id number] cc: Fer Ho M.D. [place] [address] Patient Name: SHILO VEGAS MRN: [facility]:[id number] date: 1975 Sex: M Assigned Patient Location: MRI Current Patient Location: Accession/Order Number: [id number] Exam Date: 03/12/2024 09:45 Report Date: 03/15/2024 08:11 At the request of: FER HO Procedure: MR pituitary wo/w con MR pituitary wo/w con, 03/12/2024 9:45 AM EST INDICATION: Enlarged Pituitary Gland COMPARISON: Prior CT of the head dated 04/04/[address] of the sinuses dated 02/13/2024 TECHNIQUE: Multiplanar, multisequential MRI images of brain were obtained without and with injection of contrast. FINDINGS: The cerebral sulci as well as ventricular system are appropriate for age. There is no restricted diffusion. Hyperintensities on T2 and FLAIR images in the dlay radiata and centrum semiovale with sparing of U fibers are nonspecific, statistically most likely consistent with mild microvascular ischemic changes versus migraine. The other differential diagnosis are postinfectious, vasculitis or post traumatic brain injury or demyelinating process. Pituitary gland: No abnormality of the pituitary gland is noted. The pituitary stalk is in midline. The cavernous sinuses and optic chiasma are unremarkable. There is no intracranial mass, mass effect, midline shift, intra or extra-axial fluid collection or large hemorrhage. Normal flow-void in the intracranial vessels is noted. There is a retention cyst within the left maxillary sinus. The visualized portions of orbits, mastoid air cells as well as remainder of paranasal sinuses are unremarkable. MR/MR pituitary wo/w con IMPRESSION: No acute intracranial process is noted. No abnormality of the pituitary gland is noted. Electronically authenticated by: DONIS WORTHINGTON Date: 03/15/2024 08:11 Dictated By: Donis Worthington M.D. Signed By: 03/15/24813 DD/ 0 TD/TT: Tire Inspector: [place] [address] Magnetic Resonance Report Signed Patient: Ascencion,Shilo Carpio MR#: [id number] : 1975 Acct:[id number] Age/Sex: 49 / M ADM Date: 03/12/24 Loc: MRI Attending Dr: Geraldo Ho M.D. Ordering Physician: Fer Ho M.D. Date of Service: 03/12/24 Procedure(s): pit uitary wo/w con Accession Number(s): [id number] cc: Fer Ho M.D. [place] [address] Patient Name: SHILO VEGAS MRN: [id number] date: 1975 Sex: M Assigned Patient Loc ation: MRI Current Patient Location: Accession/Order Numb er: [id number] Exam Date: 09:45 Report Date: 03/15/2024 08:11 At the request of: FER HO Procedure: MR pituit gera wo/w con MR pituitary wo/w co n, 03/12/2024 9:45 AM EST INDICATION: Enlarged Pituitary Gland COMPARISON: Prior CT of the head dated 04/04/[address] of the sinuses dated 02/13/2024 TECHNIQUE: Multiplan ar, multisequential MRI images of brain were obtained without and with inj ection of contrast. FINDINGS: The cerebral sulci a s well as ventricular system are appropriate for age. There is no restrict ed diffusion. Hyperintensities on T2 and FLAIR images in the daly radiata and centrum semiovale with spari ng of U fibers are nonspecific, statistically most likely consistent with mild microvascular ischemic changes versus migraine. The other differential diagnos is are postinfectious, vasculitis or post traumatic brain injury or demyelinat ing process. Pituitary gland: No abnormality of the pituitary gland is noted. The pituitary stalk is in midline. The cavernous sinuses and optic chiasma are unremarkable. There is no intracra nial mass, mass effect, midline shift, intra or extra-axial fluid collection or large hemorrhage. Normal flow-void in the intracranial vessels is noted. There is a retention cyst within the left maxillary sinus. The visualized porti ons of orbits, mastoid air cells as well as remainder of paranasal sinuses ar e unremarkable. M R/MR pituitary wo/w con IMPRESSION: No acute intracrania l process is noted. No abnormality of th e pituitary gland is noted. Electronically authenticated by: DONIS WORTHINGTON Date: 03/15/2024 08:11 Dictated By: Adrienne Worthington M.D. Signed By: 03/15/2414 DD/ 0 TD/TT: Tire Inspector: [place] [facility] [place]ed date:07/26/2024 01:27:25 PM Interpretation: Performing Lab: Notes/Report: [facility] , [place] [facility] [place] See Below For Report [place] [facility] [place] No Growth 2 Days [place] [facility] [place] [facility] [place] No Growth 2 Days [place]rine Culture [place] [facility] [place] performed a [facility] Urine Culture [place] [facility] [place] Growth 2 Days [place]rine Culture [place] [facility] [place] [address], [place] [address] [place] Culture [place] [facility] [place] No Growth 2 Days Performing Lab: see note ML - [facility] LB UA RANDOM W or MICROSCOPIC Reviewed date:07/22/2024 05:17:41 PM Interpretation: Performing Lab: Notes/Report: [facility] , Color Urine LT. YELLOW YELLOW Clarity Urine CLEAR CLEAR Specific [place] Urine 1.020 1.005-1.025 pH Urine 6.0 5.0-9.0 Protein Urine NEGATIVE NEG/TRACE mg/dL Glucose Urine UA NEGATIVE NEGATIVE mg/dL Bilirubin Urine NEGATIVE NEGATIVE Ketones Urine NEGATIVE NEGATIVE mg/dL Blood Urine NEGATIVE NEGATIVE Nitrite Urine NEGATIVE NEGATIVE Urobilinogen Urine 0.2 0.2-1.0 EU/dL Leukocyte Esterase Urine NEGATIVE NEGATIVE WBC Urine NONE SEEN NONE SEEN #/HPF RBC Urine 0-2 0-2 #/HPF Bacteria Urine NONE SEEN NONE SEEN #/HPF Mucus Urine NONE SEEN NONE SEEN Squamous Epithelial Cell Urine FEW NONE/RARE #/LPF Crystals Seen? None Seen None Seen #/HPF Cast Seen? NONE SEEN NONE SEEN #/LPF Urine Culture Indicated NO Performing Lab: see note ML - [facility] CT sinus wo con Reviewed date:02/15/2024 10:09:55 PM Interpretation: Performing Lab: Notes/Report: Source Facility: [place] [address] CT Scan Report Signed Patient: Shilo Vegas MR#: [id number] : 1975 Acct:[id number] Age/Sex: 49 / M ADM Date: 02/13/24 Loc: CT Attending Dr: Fer Ho M.D. Ordering Physician: Fer Ho M.D. Date of Service: 02/13/24 Procedure(s): CT sinus wo con Accession Number(s): [id number] cc: Fer Ho M.D. [place] [address] Patient Name: SHILO VEGAS MRN: [id number] date: 1975 Sex: M Assigned Patient Location: CT Current Patient Location: Accession/Order Number: [id number] Exam Date: 02/13/2024 07:55 Report Date: 02/14/2024 08:42 At the request of: FER HO Procedure: CT sinus wo con EXAMINATION: CT sinus wo con HISTORY: Abnormal Xray Of Sinus COMPARISON: No relevant comparison available. TECHNIQUE: Axial and Coronal CT images were created without and/or with IV contrast as indicated by examination type. Dose reduction techniques were achieved by using automated exposure control and/or adjustment of mA and/or kV according to patient size and/or use of iterative reconstruction technique. FINDINGS: MAXILLARY SINUSES: 2.2 cm mucocele/retention cyst within left maxillary sinus. No significant mucosal thickening or fluid. Infundibula are patent. No significant anomalous inferior orbital ethmoid (Nathan) air cells. ETHMOID SINUSES: No significant mucosal thickening or fluid. Fovea ethmoidali and lamina papyracea are symmetric and intact. SPHENOID SINUSES: No significant mucosal thickening or fluid. Sphenoethmoidal recesses are patent. No bony dehiscence. FRONTAL SINUSES: No significant mucosal thickening or fluid. Frontal recesses are patent. NASAL FOSSA: deviation of the nasal septum. No franchesca bullosa or paradoxical turbinates are identified. OTHER: Enlarged pituitary fossa, [address]/CT sinus wo con IMPRESSION: 1. 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 No evidence of acute sinusitis. 2. Enlarged pituitary fossa, 15 mm. Consider MRI of brain if clinically indicated. Electronically authenticated by: NIKITA SESAY Date: 02/14/2024 08:42 Dictated By: Nikita Sesay M.D. Signed By: 02/14/2444 DD/ 1 TD/TT: Tire Inspector: [place] [address] CT Scan Report Signed Patient: Shilo Vegas MR#: [id number] : 1975 Acct:[id number] Age/Sex: 49 / M ADM Date: 02/13/24 Loc: CT Attending Dr: Geraldo Ho M.D. Ordering Physician: Fer Ho M.D. Date of Service: 02/13/24 Procedure(s): CT sin us wo con Accession Number(s): [id number] cc: Fer Ho M.D. [address] [address] Patient Name: SHILO VEGAS MRN: [id number] date: 1975 Sex: M Assigned Patient Loc ation: CT Current Patient Location: Accession/Order Numb er: [id number] Exam Date: 07:55 Report Date: 02/14/2024 08:42 At the request of: FER HO Procedure: CT sinus wo con EXAMINATION: CT sinu s wo con HISTORY: Abnormal Xr ay Of Sinus COMPARISON: No relev ant comparison available. TECHNIQUE: Axial and Coronal CT images were created without and/or with IV contrast as indicate d by examination type. Dose reduction techniques were achieved by using automated exposure control and/or adjustment of mA and/or kV according to patient size and/or use of iterative reconstruction technique. FINDINGS: MAXILLARY SINUSES: 2 .2 cm mucocele/retention cyst within left maxillary sinus. No significant mucos al thickening or fluid. Infundibula are patent. No significant anomalou s inferior orbital ethmoid (Nathan) air cells. ETHMOID SINUSES: No significant mucosal thickening or fluid. Fovea ethmoidali and lamina papyracea are symmetric and intact. SPHENOID SINUSES: No significant mucosal thickening or fluid. Sphenoethmoidal recesses are patent. No bony dehiscence. FRONTAL SINUSES: No significant mucosal thickening or fluid. Frontal recesses are patent. NASAL FOSSA: deviati on of the nasal septum. No franchesca bullosa or paradoxical turbinates are identified. OTHER: Enlarged pitu itary fossa, 15 mm. C T/CT sinus wo con IMPRESSION: 1. 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 No evidence of acute sinusitis. 2. Enlarged pituitar y fossa, 15 mm. Consider MRI of brain if clinically indicated. Electronically authenticated by: NIKITA SESAY Date: 02/14/2024 08:42 Dictated By: Nikita Sesay M.D. Signed By: 02/14/24 0844 DD/ TD/TT: Tire Inspector: Reason For Referral No Information Medications Medication SIG (Take, Route, Frequency, Duration) Notes Start Date End Date Status Triamcinolone Acetonide 0.1 % 1 application Externally bid 07/15/2024 Active Flomax 0.4 MG 1 capsule Orally Onc e a day for 30 day(s) 10/03/2023 Active Glimepiride 2 MG 1 tablet with breakf ast or the first main meal of the day Orally Once a day for 30 days 09/22/2023 Active Lancets 30G - as directed Acti ve Blood Glucose Monitor System w/Device as directed Active Linzess 72 MCG 1 capsule at least 3 0 minutes before the first meal of the day on an empty stomach Orally Once a day for 30 days 04/15/2024 Active Protonix 40 MG 1 tablet Orally Once a day for 30 days Active Blood Glucose Test Strip Active Singulair 10 MG 1 tablet Orally Once a day for 30 days 2024 Active Social History Tobacco Use: Social History Observation Description Date Details (start date - stop date) Never Smoker NA - NA Tobacco Use/Smoking Question Answer Notes Patient is a nonsmoker Alcohol Screen (Audit-C) Question Answer Notes Did you have a drink contain ing alcohol in the past year? Yes How often did you have 6 or more drinks on one occasion in the past year? Never (0 point) How many drinks did you have on a typical day when you were drinking in the past year? 1 or 2 drinks (0 point) How often did you have a dri nk containing alcohol in the past year? Less than monthly (1 point) Points 1 Interpretation Negative AUDIT-C (Standard) Question Answer Notes Did you [...] month (2 points) Points 2 Interpretation Negative Problems Problem Type SNOMED Code ICD Code Onset Dates Problem Status W/U Status Risk Notes Problem 536237349 Gastro-esophagea l reflux disease without esophagitis (K21.9) Active confirmed Problem 028532923 Pure hyperglyceridemia (E78.1) Active confirmed Problem 523132431 Migraine, unspecified, intractable, without status migrainosus (G43.919) Active confirmed Problem 66680182 Unspecified glau coma (H40.9) Active confirmed Problem 270028559 Diverticulitis o f intestine, part unspecified, without perforation or abscess without bleeding (K57.92) Active confirmed Problem 83443620 Irritable bowel syndrome without diarrhea (K58.9) Active confirmed Problem 844900537 Unspecified thor acic, thoracolumbar and lumbosacral intervertebral disc disorder (M51.9) Active confirmed Problem Acute cystitis (88841060) Acute cystitis without hematuria (N30.00) Active confirmed Problem Balanitis (09932649) Balanitis (N48.1) Active c onfirmed Problem 49817502 Dysphagia, unspecified (R13.10) Active confirmed Problem 729193581 Fever, unspecifi ed (R50.9) Active confirmed Problem Migraine variant wit h headache (disorder) (017134809) Migraine headache (G43.909) Active confirmed Problem Gastroesophageal reflux disease (709772941) GERD (gastroesophageal reflux disease) (K21.9) Active confirmed Problem Hyponatremia (96453356) Hyponatremia (E87.1) Active confirmed Problem Esophageal reflux (981484349) Esophageal reflux (K21.9) Active confirmed Problem Glaucoma (99263539) Glaucoma (H40.9) Active con firmed Problem Irritable bowel syndrome (95136182) IBS (irritable bowel syndrome) (K58.9) Active confirmed Problem Sinus tachycardia (91277208) Sinus tachycardia (R00.0) Active confirmed Problem Hypertriglyceridemia (964402210) Hypertriglyceridemia (E78.1) Active confirmed Problem Leukocytosis (317569072) Elevated WBC count (D72.829) Active confirmed Problem Acute sinusitis (65149193) Acute sinusitis (J01.90) Active confirmed Problem Disorder of lumbar disc (827680447) Lumbar disc disease (M51.9) Active confirmed Problem Constipation (52058395) Constipation (K59.00) Active confirmed Problem Hyperuricemia (52750836) Hyperuricemia (E79.0) Active confirmed Problem Well adult (720750949) Well adult (Z00.00) Active confirmed Problem Diverticulitis (14034428) Diverticulitis (K57.92) Active confirmed Problem Otitis media of left ear (6510392737529729) Left otitis media (H66.92) Active confirmed Problem Gallstone (423231616) Gallstone (K80.20) Active confirmed Problem Abnormal glucose level (455841621) Borderline diabetes mellitus (R73.09) Active confirmed Problem Gynecomastia (7810277) Gynecomastia (N62) Active confirmed Problem Overweight (014656841) Over weight (E66.3) Active confirmed Problem Sepsis (73904188) Sepsis (A41.9) Active confirm ed Problem Acute urinary tract infection (320124067) Acute UTI (N39.0) Active confirmed Problem Physical examination procedure (8941574) Physical exam, routine (Z00.00) Active confirmed Problem Pituitary gland enlarged (386546251) Enlarged pituitary gland (E23.6) Active confirmed Problem Otitis externa of left ear (2112967334717664) Left otitis externa (H60.92) Active confirmed Problem Sdtx-Nkafj-Fifzqqx disease (557451799) Nczl-Edwua-Mwyaiya disease (M91.10) Active confirmed Problem Acute nontraumatic kidney injury (309182479549518) Acute nontraumatic kidney injury (N17.9) Active confirmed Problem 941625020 Prediabetes (R73.03) Active confirmed Problem 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 [address] [address] 12/03/2024 Nicola Hoy Acute UTI N39.0 ; Constipation K59.00 and Well adult Z00.[address] [address] 04/15/2024 Nicola Hoy Flank pain R10.9 and Constipation K59.[address] [address] 07/15/2024 Nicola Hoy Frequent urination R35.0 ; Acute UTI (urinary tract infection) N39.0 and Eczema L30.[address] [place] [address] 07/22/2024 Nicola Hoy Acute cystitis witho ut hematuria N30.00 [facility] [address] [place] [address] 2024 Nicola Ho Abnormal x-ray of paranasal sinus R93.0 [facility] [address] [place] [address] 02/02/2024 Nicola Hoy Acute sinusitis J01. 90 [facility] [address] [place] [address] 02/15/2024 Britlazaro Reynamer [facility] [address] [place] [address] 02/22/2024 Nicola Hoy Enlarged pituitary gland E23.6 [facility] [address] [place] [address] 03/15/2024 Nicola Tray [facility] [address] [place] [address] 04/16/2024 Nicola Geigernithin [facility] [address] [place] [address] 07/27/2024 Nicola Ho Assessments Encounter Date Diagnosis (ICD Code) Assessment Notes Treatment Notes Treatment Clinical Notes Section Notes 2024 Acute sinusitis (ICD-10 - J01.90) 04/15/2024 Flank pain (ICD-10 - R10.9) 04/15/2024 Constipation (ICD-10 - K59.00) 07/15/2024 Frequent urination (ICD-10 - R35.0) 07/15/2024 Acute UTI (urinary tract infection) (ICD-10 - N39.0) 2024 Abnormal x-ray of paranasal sinus (ICD-10 - R93.0) 02/02/2024 Acute sinusitis (ICD-10 - J01.90) 02/22/2024 Enlarged pituitary gland (ICD-10 - E23.6) 07/22/2024 Acute cystitis without hematuria (ICD-10 - N30.00) 12/03/2024 Acute UTI (ICD-10 - N39.0) 12/03/2024 Constipation (ICD-10 - K59.00) 12/03/2024 Well adult (ICD-10 - Z00.00) 07/15/2024 Eczema (ICD-10 - L30.9) Plan Of Treatment Pending Test Test Name Order Date CMP (COMPLETE METABOLIC PANEL) 4 HEMOGLOBIN A1C (GLYCO) 12/03/2024 INSULIN, TOTAL 12/03/2024 LIPID PANEL (CHOL/TRIG/HDL/LDL) 12/04/19 25 PSA, PROSTATE-SPECIFIC ANTIGEN 4 US Renals and Bladder 04/02/2023 T3 FREE, T4 FREE and TSH 06/09/2023 Urinalysis Microscopic 07/22/2024 UA DIP NONAUTO WO MICRO (98409) - IN OFF ICE 12/03/2024 FECAL OCCULT BLOOD 06/09/2023 MRI pituitary w/wo contrast 02/22/2024 CBC AUTO DIFF 06/09/2023 CULTURE URINE 07/22/2024 GLYCOHEMOGLOBIN A1C 06/09/2023 LIPID PROFILE 06/09/2023 CT SINUSES WO CON 2024 THYROID PANEL (T4/TSH/FREE T3) 5 PSA, SCREENING 12/03/2024 CMP (COMP MET PLUMMER) w/eGFR CKD-EPI 2024 CBC WITH DIFF 12/03/2024 Insurance Providers Payer Name Payer Address Payer Phone Subscriber Number Group Number Insured Name Patient Relationship to Insured Coverage Start Date Coverage End Date MMO [employer] [address] [place] [phone] [id number] [employer] Self - patient is the insured 8 Medical (General) History Medical History History ICD Code Acne Hyponatremia E87.1 Sepsis A41.9 COVID-19 U07.1 Hyperuricemia E79.0 Insulinoma D13.7 Acute nontraumatic kidney injury N17.9 Sinus tachycardia R00.0 GERD (gastroesophageal reflux disease) K 21.9 Over weight E66.3 Lumbar disc disease M51.9 Constipation K59.00 Balanitis N48.1 Acute cystitis without hematuria N30.00 Acute sinusitis J01.90 Well adult Z00.00 IBS (irritable bowel syndrome) K58.9 Diverticulitis K57.92 Esophageal reflux K21.9 Physical exam, routine Z00.00 Hypertriglyceridemia E78.1 Borderline diabetes mellitus R73.09 Glaucoma H40.9 Migraine headache G43.909 Gynecomastia N62 Yzto-Ewmta-Efzkunh disease M91.10 Headache, unspecified R51.9 Surgical History Surgery Date(Month/Year) EGD Colonoscopy
--- OUTSIDE RECORDS SUMMARY | 2024-12-04 06:41 | XMS_ITS | CCD ---
Author Organization [facility] Care Team Providers Care Patient Services Coordinator Name Role Phone Fer Feliz Primary Care Physician NILL, Khadar Reed Attending Unavailable Hoy PROVIDER, [...] Primary Care Unavailable TIKA CARRERO Consulting Unavailable SAHILLELA MARTINSLDEEP Consulting Unavailable REJI HAWTHORNE Consulting Unavailable SHAWANDA MILLER Consulting Unavailable HOY [...] Unavailable NILL ., DR RUBALCAVA Consulting Unavailable LANGENBERG, LALY Consulting Unavailable JENA VORA Consulting Unavailable NILL ., DR RUBALCAVA Consulting Unavailable HOY ., DR MONROE Primary Care Unavailable NILL ., DR RUBALCAVA Attending Unavailable NILL ., DR RUBALCAVA Admitting Unavailable HALLE BROOKS Consulting Unavailable RUDY, WISAM Consulting Unavailable HOY, FER M Primary Care Unavailable JOSE MANUEL GRANT Referring Unavailable HOY, FER M Referring Unavailable HOY, FER M Primary Care Unavailable RADHA AVITIA I Referring Unavailable HOY, FER M Primary Care Unavailable HOY, FER M Primary Care Unavailable RILEY, ALMA Attending Unavailable ALMA LIN Attending Unavailable ALMA LIN Referring Unavailable HOY, FER M Primary Care Unavailable Fer Feliz MD Primary Care Provider [phone] ALONDRASTREY Attending Unavailable HOY, FER M Referring Unavailable ALISON FREITAS Attending Unavailable TIMMIS, TREY H Referring Unavailable TIMMIS, TREY H Attending Unavailable TIMMIS, TREY H Referring Unavailable TIMMIS, TREY H Attending Unavailable HOY, FER M Referring Unavailable Fer Feliz MD Primary Care Provider [phone] Fer Feliz MD Primary Care Provider [phone] RADHA AVITIA I Attending Unavailable HOY, FER M Referring Unavailable HOY, FER M Primary Care Unavailable RONALDPOLI WESTON Attending Unavailable HOY, FER M Referring Unavailable HOY, FER M Primary Care Unavailable HOY, FER M Referring Unavailable HOY, FER M Primary Care Unavailable HOY, FER M Primary Care Unavailable GERMAN SAMANO Attending Unavailable GERMAN SAMANO Attending Unavailable SAMANOGERMAN Referring Unavailable HOY, FER M Primary Care Unavailable POLI XIONG Attending Unavailable HOY, FER M Referring Unavailable HOY, FER M Primary Care Unavailable Allergies Allergy Classification Reported Allergen(s) Allergy Type Date of Onset Reaction(s) Facility (4 sources) Acetaminophen / HYDROcodone; Translations: [acetaminophen-hy drocodone] Drug Allergy 03-15-20 14 Nausea (finding) [facility] (4 sources) Penicillin; Translations: [penicillin] Drug Allergy Unknown (qualifier value) [facility] [place] (2 sources) Acetaminophen / HYDROcodone Drug Allergy 03-16-20 14 [facility] (5 sources) Penicillins; Translations: [PENICILLINS] Drug allergy (disorder) 03-16-20 14 [facility] (9 sources) Penicillins Drug Intolerance 06-12-19 [facility] (5 sources) Penicillins Propensity to adverse reactions to drug 06-12-19 [facility] Medications Current Medications Medication Drug Class(es) Dates Sig (Normalized) Sig (Original) Acidophilus Probiotic Blend (3 sources) Start: 09-18-2021 take 1 capsule by mouth once daily Acidophilus Probiotic Blend 1 cap(s), Oral, Daily, Refill(s) 0 Start Date: 09/18/21 Status: Ordered cetirizine hydrochloride 10 mg oral tablet (9 sources) Histamine-1 Receptor Antagonist Start: 11-13-2023 take 2 tablets by mouth once daily cetirizine (ZyrTEC) 10 MG tablet Take 20 mg by mouth Daily 11/13/2023 Active ciprofloxacin 3 mg/ml / dexamethasone 1 mg/ml otic suspension (9 sources) Corticosteroid, Quinolone Antimicrobial Start: 11-04-2023 End: 02-27-2024 ciprofloxacin-dex AMETHasone (CiproDEX) otic suspension Administer 4 drops into each ear in the morning and 4 drops before bedtime. 11/04/2023 02/27/2024 Discontinued (Therapy completed) fluticasone propionate 0.05 mg/actuat metered dose nasal spray (14 sources) Corticosteroid Start: 11-24-2023 End: 11-23-2024 take [...] (Therapy completed) glimepiride 1 mg oral tablet (14 sources) Sulfonylurea Start: 11-08-2022 take 1 tablet by mouth before mealtime glimepiride (Amaryl) 1 MG tablet Take 1 mg by mouth in the morning. Take before meals. 11/16/2023 Active ketorolac tromethamine 10 mg oral tablet (1 source) Nonsteroidal Anti-inflammatory Drug, Cyclooxygenase Inhibitor Start: 08-23-2023 End: 08-26-2023 take 1 tablet by mouth every six hours as needed for pain ketorolac (TORADOL) 10 mg tablet Take 1 tablet (10 mg total) by mouth every 6 (six) hours as needed for pain for up to 3 days. 12 tablet 08/23/2023 08/26/2023 Active linaclotide 0.29 mg oral capsule (8 sources) Guanylate Cyclase-C Agonist Start: 09-12-2021 take 1 capsule by mouth once daily Linzess 290 mcg oral capsule 290 mcg = 1 cap(s), Oral, Daily, Refills(s) 0 Start Date: 09/12/21 Status: Ordered Start: 05-28-2021 End: 06-01-2024 take 1 capsule by mouth in the morning LINZESS 145 mcg capsule Take 1 capsule (145 mcg total) by mouth in the morning. 05/28/2021 06/01/2024 Discontinued metoprolol tartrate 25 mg oral tablet (2 [...] pantoprazole 40 mg delayed release oral tablet (11 sources) Proton Pump Inhibitor Start: 09-19-2023 take 1 tablet by mouth once daily pantoprazole (ProtoNix) 40 MG EC tablet Take 40 mg by mouth Daily 09/19/2023 Active Start: 04-12-2022 take 1 tablet by chanell th once daily Protonix 40 mg Tab-DR 40 mg = 1 tab(s), Oral, Daily, Refills(s) 0 Start Date: 04/12/22 Status: Ordered polyethylene glycol 3350 50877 mg powder for oral solution (10 sources) Osmotic Laxative Start: 10-26-2023 End: 02-27-2024 polyethylene glycol (GLYCOLAX) 17 gram/dose powder Take 17 g by mouth in the morning. 527 g 10/26/2023 Active sucralfate 1000 mg oral tablet (1 source) Aluminum Complex Start: 05-09-2022 Carafate 1 gram Tab 1 gm = 1 tab(s), Oral, QIDACHS, prescribed 05/08/22, Refills(s) 0 Start Date: 05/09/22 Status: Ordered sulfamethoxazole 800 mg / trimethoprim 160 mg oral tablet (2 sources) Dihydrofolate Reductase Inhibitor Antibacterial, Sulfonamide Antimicrobial Start: 08-23-2023 End: 08-30-2023 take 1 tablet by mouth once in the morning sulfamethoxazole- trimethoprim (BACTRIM DS) 800-160 mg per tablet Take 1 tablet by mouth in the morning and 1 tablet before bedtime. Do all this for 7 days. 14 tablet 08/23/2023 08/30/2023 Active Completed/Discontinued Medications Medication Drug Class(es) Dates Sig (Normalized) Sig (Original) hyoscyamine sulfate 0.125 mg sublingual tablet (5 sources) Start: 10-03-2023 End: 01-20-2024 take 1 tablet by mouth every four hours as needed hyoscyamine (Levsin) 0.125 MG SL tablet Take 0.125 mg by mouth every 4 (four) hours if needed 10/03/2023 01/20/2024 Discontinued (Therapy completed) levoFLOXacin 750 mg oral tablet (5 sources) Quinolone Antimicrobial Start: 11-06-2023 End: 01-20-2024 levoFLOXacin (Levaquin) 750 MG tablet Take 250 mg by mouth 1 (one) time each day at the same time 11/06/2023 01/20/2024 Discontinued (Therapy completed) metFORMIN hydrochloride 500 mg oral tablet (8 sources) Biguanide Start: 05-24-2021 End: 06-01-2024 take 1 tablet by mouth in the morning, then take 1 tablet by mouth at bedtime metFORMIN (GLUCOPHAGE) 500 mg tablet Take 1 tablet (500 mg total) by mouth in the morning and 1 tablet (500 mg total) before bedtime. 05/24/2021 06/01/2024 Discontinued predniSONE 10 mg oral tablet (5 sources) Start: 11-13-2023 End: 01-20-2024 take 1 tablet by mouth once daily predniSONE (Deltasone) 10 MG tablet Take 10 mg by mouth Daily 11/13/2023 01/20/2024 Discontinued (Therapy completed) tamsulosin hydrochloride 0.4 mg oral capsule (14 sources) alpha-Adrenergic Rosanne Start: 08-23-2023 End: 06-01-2024 take 1 capsule by mouth in the morning tamsulosin (FLOMAX) 0.4 mg capsule Take 1 capsule (0.4 mg total) by mouth in the morning. 14 capsule 08/23/2023 06/01/2024 Discontinued Problems Active Problems Problem Classification Problem Date Documented Da te Episodic/Chronic Coagulation and hemorrhagic disorders (1 source) Thrombocytopenia, [...] Onset: 2 Chronic Disorders of lipid metabolism (14 sources) Hypertriglyceridemia; Translations: [Pure hyperglyceridemia] Onset: 2 09-12-2021 Chronic Diverticulosis and diverticulitis (12 sources) Diverticulitis; Translations: [Diverticulitis of intestine, part unspecified, without perforation or abscess without bleeding] Onset: 4 09-12-2021 Chronic Esophageal disorders (20 sources) Gastroesophageal reflux disease; Translations: [Gastroesophageal reflux disease without esophagitis] Onset: 3 09-12-2021 Chronic Essential hypertension (4 sources) Hypertensive disorder; Translations: [Essential (primary) hypertension] Onset: 3 09-12-2021 Chronic Gastritis and duodenitis (1 source) Gastritis, unspecified, without bleeding; Translations: [GASTRITIS UNS WITHOUT BLEEDING] Onset: 3 Episodic Glaucoma (12 sources) Glaucoma; Translations: [Unspecified glaucoma] Onset: 4 09-12-2021 Chronic Headache; including migraine (12 sources) Migraine; Translations: [Migraine, unspecified, not intractable, without status migrainosus] Onset: 4 09-12-2021 Chronic Inflammatory conditions of male genital organs (9 sources) Balanitis; Translations: [Balanitis] Onset: 4 11-19-2023 Chronic Other aftercare (1 source) 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 drugs; Translations: [CONTINUITY EDITOR USE ORAL HYPOGLYCEMIC DX] Onset: 3 Episodic Other bone disease and musculoskeletal deformities (12 sources) Juvenile osteochondrosis of lower extremity; Translations: [Juvenile osteochondrosis of head of femur [Hpde-Ohqsg-Miajsez], unspecified leg] Onset: 4 09-12-2021 Chronic Other ear and sense organ disorders (1 source) Asymmetrical sensorineural hearing loss; Translations: [Sensorineural hearing loss, bilateral] 01-12-2024 Chronic Other ear and sense organ disorders (2 sources) Bilateral earache; Translations: [Otalgia, bilateral] 01-20-2024 Episodic Other ear and sense organ disorders (2 sources) Impacted cerumen of bilateral ears; Translations: [Impacted cerumen, bilateral] 01-20-2024 Episodic Other gastrointestinal disorders (12 sources) Irritable bowel syndrome; Translations: [Irritable bowel [...] sinusitis; Translations: [Chronic sinusitis, unspecified] 01-20-2024 Chronic Otitis media and related conditions (1 source) Dysfunction of bilateral eustachian tubes; Translations: [Unspecified Eustachian tube disorder, bilateral] 01-12-2024 Episodic Residual codes; unclassified (1 source) Insomnia, unspecified; Translations: [INSOMNIA UNSPECIFIED] Onset: 3 Episodic Spondylosis; intervertebral disc disorders; other back problems (11 sources) Disorder of lumbar disc; Translations: [Unspecified [...] pain; Translations: [Left lower quadrant pain] Onset: 09-18-2021 Episodic Acute and unspecified renal failure (10 sources) Acute kidney failure, unspecified; Translations: [Acute nontraumatic kidney injury] Onset: 06-27-2022 11-19-2023 Episodic Calculus of urinary tract (19 sources) Calculus of kidney; Translations: [Kidney stone] Onset: 08-27-2023 11-19-2023 Episodic Cardiac dysrhythmias (9 sources) Sinus tachycardia; Translations: [Tachycardia, unspecified] Onset: 11-19-2023 11-19-2023 Episodic Diabetes mellitus without complication (9 sources) Prediabetes; Translations: [Prediabetes] Onset: 11-19-2023 11-19-2023 Episodic Fluid and electrolyte disorders (11 sources) Hypo-osmolality and hyponatremia; Translations: [Hypokalemia] Onset: 06-27-2022 11-19-2023 Episodic Genitourinary symptoms and ill-defined conditions (15 sources) Urinary frequency; Translations: [Increased frequency of urination] Onset: 06-12-2021 11-19-2023 Episodic Neoplasms of unspecified nature or uncertain behavior (12 sources) Neoplasm of pancreas; 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] Onset: 11-19-2023 09-12-2021 Episodic Nonmalignant breast conditions (12 sources) Gynecomastia; Translations: [Hypertrophy of breast] Onset: 11-19-2023 09-12-2021 Episodic Other gastrointestinal disorders (12 sources) Constipation; Translations: [Constipation, unspecified] Onset: 11-19-2023 09-12-2021 Episodic Other gastrointestinal disorders (4 sources) Change in bowel habit; Translations: [CHANGE IN BOWEL HABIT] Onset: 10-24-2021 Episodic Other nutritional; endocrine; and metabolic disorders (12 sources) Hyperuricemia; Translations: [Hyperuricemia without signs of inflammatory arthritis and tophaceous disease] Onset: 11-19-2023 09-12-2021 Episodic Other nutritional; endocrine; and metabolic disorders (9 sources) Overweight; Translations: [Overweight] Onset: 11-19-2023 11-19-2023 Episodic Other screening for suspected conditions (not mental disorders or infectious disease) (14 sources) Patient encounter status; Translations: [Encounter for screening for malignant neoplasm of prostate] Onset: 06-12-2021 11-19-2023 Episodic Other skin disorders (9 sources) Acne; Translations: [Acne, unspecified] Onset: 11-19-2023 11-19-2023 Episodic Other upper respiratory infections (9 sources) Acute sinusitis; Translations: [Acute sinusitis, unspecified] Onset: 11-19-2023 11-19-2023 Episodic Septicemia (except in labor) (15 sources) Sepsis, unspecified organism; Translations: [Sepsis due to Escherichia coli [E. coli]] Onset: 06-27-2022 Episodic Unclassified (1 source) CONTACT W/AND (SUSP) EXPOS COVID-19; Translations: [CONTACT W/AND (SUSP) EXPOS COVID-19] Onset: 12-13-2021 Urinary tract infections (16 sources) Tubulo-interstitial nephritis, not specified as acute or chronic; Translations: [Acute pyelonephritis] Onset: 06-17-2022 Episodic Viral infection (9 sources) Disease caused by 2019-nCoV; Translations: [COVID-19] [...] Ring M.D. 2024-01-21 16:12:37 Normal Not Available Auditory function testson Right Ear: Mild sensorineural hearing loss above 3K Hz Left Ear: Mild sensorineural hearing loss at 6K Hz only [facility] CT ABDOMEN AND PELVIS WO CON Ton [...] Trace Cordero MD on 10/26/2023 9:34 AM Jett, Flakito Onofre have personally reviewed the image(s) and agree with and/or edited the report Finalized by Flakito Onofre on 10/26/2023 10:06 AM Normal [facility] URN MACROSCOPIC NURon 2023 BILIRUBIN ALEJANDRA Negative Normal NEG [facility] Comment on above: Performed By: #### N UM #### [facility] ([id number]) [address] [place] [address], [place] [address] BLOOD/HGB ALEJANDRA Trace Abnormal NEG [facility] Comment on above: Performed By: #### N UM #### [facility] ([id number]) [address] [place] [address] [place] [address] GLUCOSE ALEJANDRA Negative Normal NEG [facility] Comment on above: Performed By: #### N UM #### [facility] ([id number]) [address] [place] [address] [place] [address] KETONES ALEJANDRA Negative Normal NEG [facility] Comment on above: Performed By: #### N UM #### [facility] ([id number]) [address] [place] [address] [place] [address] LEUKOCYTE ESTERASE ALEJANDRA Negative Normal NEG [facility] Comment on above: Performed By: #### N UM #### [facility] ([id number]) [address] [place] [address] [place] [address] NITRITE ALEJANDRA Negative Normal NEG [facility] Comment on above: Performed By: #### N UM #### [facility] ([id number]) [address] [place] [address] [place] [address] PH ALEJANDRA 5.5 Normal 5.0-8.5 [facility] Comment on above: Performed By: #### N UM #### [facility] ([id number]) [address] [place] [address] [place] [address] PROTEIN ALEJANDRA Negative Normal NEG [facility] Comment on above: Performed By: #### N UM #### [facility] ([id number]) [address] [place] [address] SPECIFIC GRAVITY ALEJANDRA 1.025 Normal 1.003-1 .03 5 [facility] Comment on above: Performed By: #### N UM #### [facility] ([id number]) [address] [place] [address] UROBILINOGEN ALEJANDRA 0.2 eu/dL Normal <1.1 [facility] Comment on above: Performed By: #### N UM #### [facility] ([id number]) [address] [place] [address] POCT Urinalysis Auto, W/O Mi croscopyon 10-14-2023 External Poct Urine Bilirubin Negative [facility] External Poct Urine Blood Negative [facility] External Poct Urine Glucose Negative [facility] External Poct Urine Ketones Negative [facility] External Poct Urine Leukocyte Esterase Negative [facility] External Poct Urine Nitrite Negative [facility] External Poct Urine Ph 6.0 [facility] External Poct Urine Protein Negative [facility] External Poct Urine Specific [place] 1.030 [facility] External Poct Urine Urobilinogen 0.2 [facility] XR ABDOMEN AP 1 VWon 024 XR [...] No suspicious calcification evident radiographically. Finalized by Poli Villa MD on 10/13/2023 1:14 PM Normal [facility] UA (MICROSCOPIC)on 4 CELLULAR CASTS 1 /lpf High 0 [facility] Comment on above: Performed By: #### U LACY #### [facility] ([id number]) [address], [address] [place] [address] Hyaline casts LM Ql (Urine sed) 4 /lpf High 0-2 [facility] Comment on above: Performed By: #### U LACY #### [facility] ([id number]) [address], [address] [place] [address] MUCOUS PRESENT Abnormal NONE [facility] Comment on above: Performed By: #### U LACY #### [facility] ([id number]) [address], [address] [place] [address] R.B.CELLS 1 /hpf Normal 0-5 [facility] Comment on above: Performed By: #### U LACY #### [facility] ([id number]) [address], [address] [place] [address] SQUAMOUS EPITHELIUM 1 /hpf Normal 0-[address] [facility] Comment on above: Performed By: #### U LACY #### [facility] ([id number]) [address], [address] [place] [address] W.B.CELLS 1 /hpf Normal 0-5 [facility] Comment on above: Performed By: #### U LACY #### [facility] ([id number]) [address], [address] [place] [address] POCT Urinalysis Auto, W/O Mi croscopyon 08-27-2023 External Poct Urine Bilirubin Negative [facility] External Poct Urine Blood Trace [facility] External Poct Urine Glucose Negative [facility] External Poct Urine Ketones Negative [facility] External Poct Urine Leukocyte Esterase Negative [facility] External Poct Urine Nitrite Negative [facility] External Poct Urine Ph 6.0 [facility] External Poct Urine Protein Negative [facility] External Poct Urine Specific [place] 1.025 [facility] External Poct Urine Urobilinogen 0.2 [facility] CBC W Auto Differential pane l (Bld)on 08-23-2023 % MID 6.2 % Normal [facility] Comment on above: Performed By: #### 5 7021-8 #### [facility] ([id number]) [address] [place], [place] [id number] ABSOLUTE MID 0.7 x10E9/L Normal 0.0-0.9 [facility] Comment on above: Performed By: #### 5 7021-8 #### [facility] ([id number]) [address] [place] [address] Erythrocyte distribution width (RBC) [Ratio] 12.8 % Normal 11.5-15.0 [facility] Comment on above: Performed By: #### 5 7021-8 #### [facility] ([id number]) [address] [place] [address] Granulocytes (Bld) [#/Vol] 7.1 10*3/uL Normal 1.5-7.2 [facility] Comment on above: Performed By: #### 5 7021-8 #### [facility] ([id number]) [address] [place] [address] Granulocytes/100 WBC (Bld) 71.0 % Normal [facility] Comment on above: Performed By: #### 5 7021-8 #### [facility] ([id number]) [address] [place], [place] [address] Hematocrit (Bld) [Volume fraction] 46.9 % Normal 39-50 [facility] Comment on above: Performed By: #### 5 7021-8 #### [facility] ([id number]) [address] [place] [address] Hemoglobin (Bld) [Mass/Vol] 15.9 g/dL Normal 13.0-17.0 [facility] Comment on above: Performed By: #### 5 7021-8 #### [facility] ([id number]) [address] [place] [address] Lymphocytes (Bld) [#/Vol] 2.3 10*3/uL Normal 1.0-3.5 [facility] Comment on above: Performed By: #### 5 7021-8 #### [facility] ([id number]) [address] [place] [address] Lymphocytes/100 WBC (Bld) 22.8 % Normal [facility] Comment on above: Performed By: #### 5 7021-8 #### [facility] ([id number]) [address] [place] [address] MCH (RBC) [Entitic mass] 30.0 pg Normal 27-34 [facility] Comment on above: Performed By: #### 5 7021-8 #### [facility] ([id number]) [address] [place] [address] MCHC (RBC) [Mass/Vol] 33.9 g/dL Normal 32-36 [facility] Comment on above: Performed By: #### 5 7021-8 #### [facility] ([id number]) [address] [place] [address] MCV (RBC) [Entitic vol] 89 fL Normal 80-100 [facility] Comment on above: Performed By: #### 5 7021-8 #### [facility] ([id number]) [address] [place] [address] Platelet mean volume (Bld) [Entitic vol] 8.8 fL Normal 7-12 [facility] Comment on above: Performed By: #### 5 7021-8 #### [facility] ([id number]) [address] [place] [address] Platelets (Bld) [#/Vol] 180 10*3/uL Normal 150-450 [facility] Comment on above: Performed By: #### 5 7021-8 #### [facility] ([id number]) [address] [place] [address] RBC 5.30 x10E12/L Normal 4.10-5.70 [facility] Comment on above: Performed By: #### 5 7021-8 #### [facility] ([id number]) [address] [place] [address] WBC (Bld) [#/Vol] 10.1 10*3/uL Normal 4.0-11.0 [facility] Comment on above: Performed By: #### 5 7021-8 #### [facility] ([id number]) [address] [place] [address] ABDOMEN AND PELVIS WO CON Ton [...] on 08/23/2023 6:54 PM Normal [facility] POC [id number] 08-23-2023 Chloride [Moles/Vol] 107 mmol/L Normal 98-109 [facility] Comment on above: Performed By: #### I BMP #### [facility] ([id number]) [address] [place] [address] CO2 [Moles/Vol] 24 mmol/L Normal 22-32 [facility] Comment on above: Performed By: #### I BMP #### [facility] ([id number]) [address] [place] [address] Creatinine [Mass/Vol] 1.0 mg/dL Normal 0.7-1.2 [facility] Comment on above: Result Comment: METH OD TRACEABLE TO IDMS STANDARD Performed By: #### I BMP #### [facility] ([id number]) [address] [place] [address] eGFR (CKD-EPI) NON-RACE DEPENDENT >90 Normal >59 [facility] Comment on above: Result Comment: Reported eGFR is based on the CKD-EPI 2020 equation that does not use a race coefficient. Performed By: #### I BMP #### [facility] ([id number]) [address] [place] [address] Glucose [Mass/Vol] 123 mg/dL High 65-99 [facility] Comment on above: Performed By: #### I BMP #### [facility] ([id number]) [address] [place] [address] PORTABLE ICA 4.5 mg/dL Normal 4.5-5.3 [facility] Comment on above: Performed By: #### I BMP #### [facility] ([id number]) [address] [place] [address] Potassium [Moles/Vol] 4.0 mmol/L Normal 3.5-5.0 [facility] Comment on above: Performed By: #### I BMP #### [facility] [facility] ([id number]) [address] [place] [address]26 Sodium [Moles/Vol] 141 mmol/L Normal 134-146 [facility] Comment on above: Performed By: #### I BMP #### [facility] ([id number]) [address] [place] [address] Urea nitrogen [Mass/Vol] 20 mg/dL Normal 6-23 [facility] Comment on above: Performed By: #### I BMP #### [facility] ([id number]) [address] [place] [address] URINE CULTUREon 08-23-2023 Bacteria identified Cx Nom (U) CULTURE RESULTS NO GROWTH AT <1000 CFU/mL Normal [facility] Comment on above: Performed By: #### 6 30-4 #### [facility] ([id number]) [address] [place] [address], [address] [place] [address] URN MACROSCOPIC NURon 2023 BILIRUBIN ALEJANDRA Negative Normal NEG [facility] Comment on above: Performed By: #### N UM #### [facility] ([id number]) [address] [place] [address]115 BLOOD/HGB ALEJANDRA Large Abnormal NEG [facility] Comment on above: Performed By: #### N UM #### [facility] ([id number]) [address] [place] [address]297 GLUCOSE ALEJANDRA Negative Normal NEG [facility] Comment on above: Performed By: #### N UM #### [facility] ([id number]) [address] [place] [address] KETONES ALEJANDRA Negative Normal NEG [facility] Comment on above: Performed By: #### N UM #### [facility] ([id number]) [address] [place] [address] 16882 LEUKOCYTE ESTERASE ALEJANDRA Trace Abnormal NEG [facility] Comment on above: Performed By: #### N UM #### [facility] ([id number]) [address] [place] [address] NITRITE ALEJANDRA Negative Normal NEG [facility] Comment on above: Performed By: #### N UM #### [facility] ([id number]) [address] [place] [address] 68681 PH ALEJANDRA 5.5 Normal 5.0-8.5 [facility] Comment on above: Performed By: #### N UM #### [facility] ([id number]) [address] [place] [address] PROTEIN ALEJANDRA 30 mg/dL Abnormal NEG [facility] Comment on above: Performed By: #### N UM #### [facility] ([id number]) [address] [place] [address]64 SPECIFIC GRAVITY ALEJANDRA 1.020 Normal 1.003-1 .03 5 [facility] Comment on above: Performed By: #### N UM #### [facility] ([id number]) [address] [place] [address] UROBILINOGEN ALEJANDRA 0.2 eu/dL Normal <1.1 [facility] Comment on above: Performed By: #### N UM #### [facility] ([id number]) [address] [place] [address]9628 H. pylori Antigenon 12-08-19 23 H. pylori Antigen Specimen Description .FECES Direct Exam NEGATIVE Report Status FINAL 12/07/2022 Normal [facility] Comment on above: Performed By: #### F HPY #### [place] [address] Hanging Flags Decorator: Eric Blood MD [facility] [address] [place] [address] Hanging Flags Decorator: Alma Galicia MD CBC AUTO DIFFon 07-08-2022 BASO # 0.1 103/ul Normal 0.0-0.1 [facility] Comment on above: Performed By: #### P OCGLUC #### [facility] [address] [place] [address] Dr. Nayely Ferrer Basophils/100 WBC (Bld) 0.9 % Normal 0.2-2.0 [facility] Comment on above: Performed By: #### P OCGLUC #### [facility] [address] [place] [address] Dr. Nayely Ferrer EO # 0.1 103/ul Normal 0.0-0.7 [facility] Comment on above: Performed By: #### P OCGLUC #### [facility] [address] [place] [address] Dr. Nayely Ferrer Eosinophils/100 WBC (Bld) 2.2 % Normal 0.9-7.0 [facility] Comment on above: Performed By: #### P OCGLUC #### [facility] [address] [place] [address] Dr. Nayely Ferrer Erythrocyte distribution width (RBC) [Ratio] 13.7 % Normal 11.0-15.0 [facility] Comment on above: Performed By: #### P OCGLUC #### [facility] [address] [place] [address] Dr. Nayely Ferrer Hematocrit (Bld) [Volume fraction] 42.3 % Normal 42.0-54.0 [facility] Comment on above: Performed By: #### P OCGLUC #### [facility] [address] [place] [address] Dr. Nayely Ferrer Hemoglobin (Bld) [Mass/Vol] 13.8 g/dL Critically low 14.0-18.0 [facility] Comment on above: Performed By: #### P OCGLUC #### [facility] [address] [place] [address] Dr. Nayely Ferrer IG # 0.01 10e3/ul Normal 0.00-0.03 [facility] Comment on above: Performed By: #### P OCGLUC #### [facility] [address] [place] [address] Dr. Nayely Ferrer IG % 0.2 % Normal 0.0-0.5 [facility] Comment on above: Performed By: #### P OCGLUC #### [facility] [address] [place] [address] Dr. Nayely Ferrer LYMPH # 1.8 103/ul Normal 1.2-3.8 [facility] Comment on above: Performed By: #### P OCGLUC #### [facility] [address] [place] [address] Dr. Nayely Ferrer Lymphocytes/100 WBC (Bld) 28.0 % Normal 20.5-60.0 [facility] Comment on above: Performed By: #### P OCGLUC #### [facility] [address] [place] [address] Dr. Nayely Ferrer MANUAL DIFF REQ NO Normal [facility] Comment on above: Performed By: #### P OCGLUC #### [facility] [address] [place] [address] Dr. Nayely Ferrer MCH (RBC) [Entitic mass] 28.7 pg Normal 25.9-34.0 [facility] Comment on above: Performed By: #### P OCGLUC #### [facility] [address] [place] [address] Dr. Nayely Ferrer MCHC (RBC) [Mass/Vol] 32.6 g/dL Normal 29.9-35.2 [facility] Comment on above: Performed By: #### P OCGLUC #### [facility] [address] [place] [address] Dr. Nayely Ferrer MCV (RBC) [Entitic vol] 87.9 fL Normal 80.0-94.0 [facility] Comment on above: Performed By: #### P OCGLUC #### [facility] [address] [place] [address] Dr. Nayely Ferrer MONO # 0.3 103/ul Normal 0.3-0.8 [facility] Comment on above: Performed By: #### P OCGLUC #### [facility] [address] [place] [address] Dr. Nayely Ferrer Monocytes/100 WBC (Bld) 4.9 % Normal 1.7-12.0 [facility] Comment on above: Performed By: #### P OCGLUC #### [facility] [address] [place] [address] Dr. Nayely Ferrer NEUT # 4.2 103/ul Normal 1.4-6.5 [facility] Comment on above: Performed By: #### P OCGLUC #### [facility] [address] [place] [address] Dr. Nayely Ferrer Neutrophils/100 WBC (Bld) 63.8 % Normal 43.0-75.0 [facility] Comment on above: Performed By: #### P OCGLUC #### [facility] [address] [place] [address] Dr. Nayely Ferrer Platelet mean volume (Bld) [Entitic vol] 9.3 fL Critically low 9.5-13.5 [facility] Comment on above: Performed By: #### P OCGLUC #### [facility] [address] [place] [address] Dr. Nayely Ferrer PLT 207 103/ul Normal 150-450 [facility] Comment on above: Performed By: #### P OCGLUC #### [facility] [address] [place] [address] Dr. Nayely Ferrer RBC 4.81 106/ul Normal 4.70-6.10 [facility] Comment on above: Performed By: #### P OCGLUC #### [facility] [address] [place] [address] Dr. Nayely Ferrer WBC 6.5 103/ul Normal 4.0-11.0 [facility] Comment on above: Performed By: #### P OCGLUC #### [facility] [address] [place] [address] Dr. Nayely Ferrer CULTURE URINEon 07-08-2022 CULTURE URINE Culture Observations : LIGHT GROWTH OF MIXED SKIN HONG. NO POTENTIAL PATHOGENS SEEN. Normal [facility] Comment on above: Performed By: #### U RCX #### [facility] [address] [place] [address] Dr. Nayely Ferrer IRONon 07-08-2022 Iron [Mass/Vol] 79.0 ug/dL Normal 65.0-175.0 [facility] Comment on above: Performed By: #### P OCGLUC #### [facility] [address] [place] [address] Dr. Nayely Ferrer PROF 14(COMP METB)on 023 Albumin [Mass/Vol] 3.5 g/dL Normal 3.4-5.0 [facility] Comment on above: Performed By: #### P OCGLUC #### [facility] [address] [place] [address] Dr. Nayely Ferrer Albumin/Globulin [Mass ratio] 0.7 {ratio} Normal [facility] Comment on above: Performed By: #### P OCGLUC #### [facility] [address] [place] [address] Dr. Nayely Ferrer ALP [Catalytic activity/Vol] 44 U/L Critically low 46-116 [facility] Comment on above: Performed By: #### P OCGLUC #### [facility] [address] [place] [address] Dr. Nayely Ferrer ALT [Catalytic activity/Vol] 34 U/L Normal 16-63 [facility] Comment on above: Performed By: #### P OCGLUC #### [facility] [address] [place] [address] Dr. Nayely Ferrer Anion gap [Moles/Vol] 12.1 mmol/L Normal [facility] Comment on above: Performed By: #### P OCGLUC #### [facility] [address] [place] [address] Dr. Nayely Ferrer AST [Catalytic activity/Vol] 33 U/L Normal 15-37 [facility] Comment on above: Performed By: #### P OCGLUC #### [facility] [address] [place] [address] Dr. Nayely Ferrer Bilirubin [Mass/Vol] 0.5 mg/dL Normal 0.2-1.0 [facility] Comment on above: Performed By: #### P OCGLUC #### [facility] [address] [address] [address] Nayely Ferrer Calcium [Mass/Vol] 9.1 mg/dL Normal 8.5-10.1 [facility] Comment on above: Performed By: #### P OCGLUC #### [facility] [address] [address] [address] Nayely Ferrer Chloride [Moles/Vol] 104 mmol/L Normal 98-107 [facility] Comment on above: Performed By: #### P OCGLUC #### [facility] [address] [place] [address] Dr. Nayely Ferrer CO2 [Moles/Vol] 27.4 mmol/L Normal 21.0-32.0 [facility] Comment on above: Performed By: #### P OCGLUC #### [facility] [address] [address] [address] Nayely Ferrer Creatinine [Mass/Vol] 1.18 mg/dL Normal 0.70-1.30 [facility] Comment on above: Performed By: #### P OCGLUC #### [facility] [address] [place] [address] Dr. Nayely Ferrer EGFR-AF CYMRAES >60 Normal >=60 [facility] Comment on above: Performed By: #### P OCGLUC #### [facility] [address] [place] [address] Dr. Nayely Ferrer EGFR-NON AF CYMRAES >60 Normal >=60 [facility] Comment on above: Performed By: #### P OCGLUC #### [facility] [address] [address] [address] Nayely Ferrer Globulin (S) [Mass/Vol] 4.7 g/dL Normal [facility] Comment on above: Performed By: #### P OCGLUC #### [facility] [address] [place] [address] Dr. Nayely Ferrer Glucose [Mass/Vol] 126 mg/dL Critically high 74-106 [facility] Comment on above: Performed By: #### P OCGLUC #### [facility] [address] [address] [address] Nayely Ferrer Potassium [Moles/Vol] 3.5 mmol/L Normal 3.5-5.1 [facility] Comment on above: Performed By: #### P OCGLUC #### [facility] [address] [address] [address] Nayely Ferrer Protein [Mass/Vol] 8.2 g/dL Normal 6.4-8.2 [facility] Comment on above: Performed By: #### P OCGLUC #### [facility] [address] [address] [address] Nayely Ferrer Sodium [Moles/Vol] 140 mmol/L Normal 136-145 [facility] Comment on above: Performed By: #### P OCGLUC #### [facility] [address] [address] [address] Nayely Ferrer Urea nitrogen [Mass/Vol] 11.0 mg/dL Normal 7.0-18.0 [facility] Comment on above: Performed By: #### P OCGLUC #### [facility] [address] [address] [address] Nayely Ferrer Urea nitrogen/Creatinine [Mass ratio] 9.3 mg/mg Normal [facility] Comment on above: Performed By: #### P OCGLUC #### [facility] [address] [address] [address] Nayely Ferrer UA RANDOM W/MICROSCOPICon BACTERIA TRACE Abnormal NONE SEEN [facility] Comment on above: Performed By: #### P OCGLUC #### [facility] [address] [address] [address] Nayely Ferrer Bilirubin Ql (U) Negative Normal NEGATIVE [facility] Comment on above: Performed By: #### P OCGLUC #### [facility] [address] [address] [address] Nayely Ferrer CAST NONE SEEN Normal NONE SEEN [facility] Comment on above: Performed By: #### P OCGLUC #### [facility] [address] [address] [address] Nayely Ferrer Clarity (U) CLEAR Normal CLEAR [facility] Comment on above: Performed By: #### P OCGLUC #### [facility] [address] [place] [address] Dr. Nayely Ferrer Color (U) LT. YELLOW Normal YELLOW [facility] Comment on above: Performed By: #### P OCGLUC #### [facility] [address] [place] [address] Dr. Nayely Ferrer Crystals LM Nom (Urine sed) NONE SEEN Normal NONE SEEN [facility] Comment on above: Performed By: #### P OCGLUC #### [facility] [address] [place] [address] Dr. Nayely Ferrer Epithelial cells LM Ql (Urine sed) RARE Normal NONE SEEN /RARE [facility] Comment on above: Performed By: #### P OCGLUC #### [facility] [address] [place] [address] Dr. Nayely Ferrer Glucose Ql (U) >1000 Abnormal NEGATIVE [facility] Comment on above: Performed By: #### P OCGLUC #### [facility] [address] [place] [address] Dr. Nayely Ferrer Hemoglobin Ql (U) Negative Normal NEGATIVE [facility] Comment on above: Performed By: #### P OCGLUC #### [facility] [address] [place] [address] Dr. Nayely Ferrer Ketones Ql (U) TRACE Abnormal NEGATIVE [facility] Comment on above: Performed By: #### P OCGLUC #### [facility] [address] [place] [address] Dr. Nayely Ferrer LEUKOCYTES Negative Normal NEGATIVE [facility] Comment on above: Performed By: #### P OCGLUC #### [facility] [address] [place] [address] Dr. Nayely Ferrer MUCOUS NONE SEEN Normal NONE SEEN [facility] Comment on above: Performed By: #### P OCGLUC #### [facility] [address] [place] [address] Dr. Nayely Ferrer Nitrite Ql (U) Negative Normal NEGATIVE [facility] Comment on above: Performed By: #### P OCGLUC #### [facility] [address] [address] [address] Nayely Ferrer pH (U) 5.5 [pH] Normal 5-9 [facility] Comment on above: Performed By: #### P OCGLUC #### [facility] [address] [place] [address] Dr. Nayely Ferrer RBC 0-2 Normal 0-2 [facility] Comment on above: Performed By: #### P OCGLUC #### [facility] [address] [place] [address] Dr. Nayely Ferrer SPEC GRAVITY 1.015 Normal 1.005-<=1. 025 [facility] Comment on above: Performed By: #### P OCGLUC #### [facility] [address] [place] [address] Dr. Nayely Ferrer UA PROTEIN TRACE Normal NEGATIVE/ TRACE [facility] Comment on above: Performed By: #### P OCGLUC #### [facility] [address] [place] [address] Dr. Nayely Ferrer Urobilinogen Qn (U) 0.2 {Ced'U}/dL Normal 0.2 - 1. 0 [facility] Comment on above: Performed By: #### P OCGLUC #### [facility] [address] [place] [address] Dr. Nayely Ferrer WBC 2-5 Abnormal NONE SEEN [facility] Comment on above: Performed By: #### P OCGLUC #### [facility] [address] [place] [address] Dr. Nayely Ferrer CULTURE BLOODon 06-23-2022 Microscopic [...] C Trimethoprim/Sulfamethoxazol e >=320 R C Normal [facility] Comment on above: Performed By: #### P OCGLUC #### [facility] [address] [place] [address] Dr. Nayely Ferrer CBC AUTO DIFFon 06-20-2022 BASO # 0.0 103/ul Normal 0.0-0.1 [facility] Comment on above: Performed By: #### P OCGLUC #### [facility] [address] [place] [address] Dr. Nayely Ferrer Basophils/100 WBC (Bld) 0.3 % Normal 0.2-2.0 [facility] Comment on above: Performed By: #### P OCGLUC #### [facility] [address] [place] [address] Dr. Nayely Ferrer EO # 0.1 103/ul Normal 0.0-0.7 [facility] Comment on above: Performed By: #### P OCGLUC #### [facility] [address] [place] [address] Dr. Nayely Ferrer Eosinophils/100 WBC (Bld) 0.6 % Critically low 0.9-7.0 [facility] Comment on above: Performed By: #### P OCGLUC #### [facility] [address] [place] [address] Dr. Nayely Ferrer Erythrocyte distribution width (RBC) [Ratio] 13.8 % Normal 11.0-15.0 [facility] Comment on above: Performed By: #### P OCGLUC #### [facility] [address] [place] [address] Dr. Nayely Ferrer Hematocrit (Bld) [Volume fraction] 32.4 % Critically low 42.0-54.0 [facility] Comment on above: Performed By: #### P OCGLUC #### [facility] [address] [place], [place] [id number] Dr. Nayely Ferrer Hemoglobin (Bld) [Mass/Vol] 10.9 g/dL Critically low 14.0-18.0 [facility] Comment on above: Performed By: #### P OCGLUC #### [facility] [address] [place] [address] Dr. Nayely Ferrer IG # 0.08 10e3/ul Critically high 0.00-0.03 [facility] Comment on above: Performed By: #### P OCGLUC #### [facility] [address] [place] [address] Dr. Nayely Ferrer IG % 0.8 % Critically high 0.0-0.5 [facility] Comment on above: Performed By: #### P OCGLUC #### [facility] [address] [place] [address] Dr. Nayely Ferrer LYMPH # 1.0 103/ul Critically low 1.2-3.8 [facility] Comment on above: Performed By: #### P OCGLUC #### [facility] [address] [place] [address] Dr. Nayely Ferrer Lymphocytes/100 WBC (Bld) 9.7 % Critically low 20.5-60.0 [facility] Comment on above: Performed By: #### P OCGLUC #### [facility] [address] [place] [address] Dr. Nayely Ferrer MANUAL DIFF REQ NO Normal [facility] Comment on above: Performed By: #### P OCGLUC #### [facility] [address] [address] [address] Nayely Ferrer MCH (RBC) [Entitic mass] 29.5 pg Normal 25.9-34.0 [facility] Comment on above: Performed By: #### P OCGLUC #### [facility] [address] [place] [address] Dr. Nayely eFrrer MCHC (RBC) [Mass/Vol] 33.6 g/dL Normal 29.9-35.2 [facility] Comment on above: Performed By: #### P OCGLUC #### [facility] [address] [place] [address] Dr. Nayely Ferrer MCV (RBC) [Entitic vol] 87.6 fL Normal 80.0-94.0 [facility] Comment on above: Performed By: #### P OCGLUC #### [facility] [address] [address] [address] Nayely Ferrer MONO # 0.5 103/ul Normal 0.3-0.8 [facility] Comment on above: Performed By: #### P OCGLUC #### [facility] [address] [address] [address] Nayely Ferrer Monocytes/100 WBC (Bld) 4.9 % Normal 1.7-12.0 [facility] Comment on above: Performed By: #### P OCGLUC #### [facility] [address] [place] [address] Dr. Nayely Ferrer NEUT # 8.9 103/ul Critically high 1.4-6.5 [facility] Comment on above: Performed By: #### P OCGLUC #### [facility] [address] [place] [address] Dr. Nayely Ferrer Neutrophils/100 WBC (Bld) 83.7 % Critically high 43.0-75.0 [facility] Comment on above: Performed By: #### P OCGLUC #### [facility] [address] [place] [address] Dr. Nayely Ferrer Platelet mean volume (Bld) [Entitic vol] 9.9 fL Normal 9.5-13.5 [facility] Comment on above: Performed By: #### P OCGLUC #### [facility] [address] [place] [address] Dr. Nayely Ferrer PLT 147 103/ul Critically low 150-450 [facility] Comment on above: Performed By: #### P OCGLUC #### [facility] [address] [address] [address] Nayely Ferrer RBC 3.70 106/ul Critically low 4.70-6.10 [facility] Comment on above: Performed By: #### P OCGLUC #### [facility] [address] [place] [address] Dr. Nayely Ferrer WBC 10.7 103/ul Normal 4.0-11.0 [facility] Comment on above: Performed By: #### P OCGLUC #### [facility] [address] [address] [address] Nayely Ferrer PROF CHEM 8 (BAS METB)on Anion gap [Moles/Vol] 15.4 mmol/L Normal [facility] Comment on above: Performed By: #### P OCGLUC #### [facility] [address] [address] [address] Nayely Ferrer Calcium [Mass/Vol] 7.9 mg/dL Critically low 8.5-10.1 [facility] [facility] Comment [facility]: Performed By: #### P OCGLUC #### [facility] [address] [address] [address] Nayely Ferrer Chloride [Moles/Vol] 101 mmol/L Normal 98-107 [facility] Comment on above: Performed By: #### P OCGLUC #### [facility] [address] [address] [address] Nayely Ferrer CO2 [Moles/Vol] 22.0 mmol/L Normal 21.0-32.0 [facility] Comment on above: Performed By: #### P OCGLUC #### [facility] [address] [address] [address] Nayely Ferrer Creatinine [Mass/Vol] 1.42 mg/dL Critically high 0.70-1.30 [facility] Comment on above: Performed By: #### P OCGLUC #### [facility] [address] [address] [address] Nayely Ferrer EGFR-AF CYMRAES >60 Normal >=60 [facility] Comment on above: Performed By: #### P OCGLUC #### [facility] [address] [address] [address] Nayely Ferrer EGFR-NON AF CYMRAES 54 mL/min/1.73m2 Critically low >=60 [facility] Comment on above: Performed By: #### P OCGLUC #### [facility] [address] [address] [address] Nayely Ferrer Glucose [Mass/Vol] 188 mg/dL Critically high 74-106 [facility] Comment on above: Performed By: #### P OCGLUC #### [facility] [address] [address] [address] Nayely Ferrer Potassium [Moles/Vol] 3.4 mmol/L Critically low 3.5-5.1 [facility] Comment on above: Performed By: #### P OCGLUC #### [facility] [address] [place] [address] Dr. Nayely Ferrer Sodium [Moles/Vol] 135 mmol/L Critically low 136-145 [facility] Comment on above: Performed By: #### P OCGLUC #### [facility] [address] [place] [address] Dr. Nayely Ferrer Urea nitrogen [Mass/Vol] 19.0 mg/dL Critically high 7.0-18.0 [facility] Comment on above: Performed By: #### P OCGLUC #### [facility] [address] [place] [address] Dr. Nayely Ferrer Urea nitrogen/Creatinine [Mass ratio] 13.4 mg/mg Normal [facility] Comment on above: Performed By: #### P OCGLUC #### [facility] [address] [place] [address] Dr. Nayely Ferrer CBC AUTO DIFFon 06-19-2022 BASO # 0.0 103/ul Normal 0.0-0.1 [facility] Comment on above: Performed By: #### P OCGLUC #### [facility] [address] [place] [address] Dr. Nayely Ferrer Basophils/100 WBC (Bld) 0.2 % Normal 0.2-2.0 [facility] Comment on above: Performed By: #### P OCGLUC #### [facility] [address] [place] [address] Dr. Nayely Ferrer EO # 0.0 103/ul Normal 0.0-0.7 [facility] Comment on above: Performed By: #### P OCGLUC #### [facility] [address] [address] [address] Nayely Ferrer Eosinophils/100 WBC (Bld) 0.4 % Critically low 0.9-7.0 [facility] Comment on above: Performed By: #### P OCGLUC #### [facility] [address] [place] [address] Dr. Nayely Ferrer Erythrocyte distribution width (RBC) [Ratio] 13.5 % Normal 11.0-15.0 [facility] Comment on above: Performed By: #### P OCGLUC #### [facility] [address] [place] [address] Dr. Nayely Ferrer Hematocrit (Bld) [Volume fraction] 35.2 % Critically low 42.0-54.0 [facility] Comment on above: Performed By: #### P OCGLUC #### [facility] [address] [place] [address] Dr. Nayely Ferrer Hemoglobin (Bld) [Mass/Vol] 11.9 g/dL Critically low 14.0-18.0 [facility] Comment on above: Performed By: #### P OCGLUC #### [facility] [address] [place] [address] Dr. Nayely Ferrer IG # 0.07 10e3/ul Critically high 0.00-0.03 [facility] Comment on above: Performed By: #### P OCGLUC #### [facility] [address] [place] [address] Dr. Nayely Ferrer IG % 0.6 % Critically high 0.0-0.5 [facility] Comment on above: Performed By: #### P OCGLUC #### [facility] [address] [place] [address] Dr. Nayely Ferrer LYMPH # 0.7 103/ul Critically low 1.2-3.8 [facility] Comment on above: Performed By: #### P OCGLUC #### [facility] [address] [place] [address] Dr. Nayely Ferrer Lymphocytes/100 WBC (Bld) 6.7 % Critically low 20.5-60.0 [facility] Comment on above: Performed By: #### P OCGLUC #### [facility] [address] [place] [address] Dr. Nayely Ferrer MANUAL DIFF REQ NO Normal [facility] Comment on above: Performed By: #### P OCGLUC #### [facility] [address] [place] [address] Dr. Nayely Ferrer MCH (RBC) [Entitic mass] 29.5 pg Normal 25.9-34.0 [facility] Comment on above: Performed By: #### P OCGLUC #### [facility] [address] [place] [address] Dr. Nayely Ferrer MCHC (RBC) [Mass/Vol] 33.8 g/dL Normal 29.9-35.2 [facility] Comment on above: Performed By: #### P OCGLUC #### [facility] [address] [place] [address] Dr. Nayely Ferrer MCV (RBC) [Entitic vol] 87.3 fL Normal 80.0-94.0 [facility] Comment on above: Performed By: #### P OCGLUC #### [facility] [address] [place] [address] Dr. Nayely Ferrer MONO # 0.6 103/ul Normal 0.3-0.8 [facility] Comment on above: Performed By: #### P OCGLUC #### [facility] [address] [place] [address] Dr. Nayely Ferrer Monocytes/100 WBC (Bld) 5.6 % Normal 1.7-12.0 [facility] Comment on above: Performed By: #### P OCGLUC #### [facility] [address] [place] [address] Dr. Nayely Ferrer NEUT # 9.6 103/ul Critically high 1.4-6.5 [facility] Comment on above: Performed By: #### P OCGLUC #### [facility] [address] [place] [address] Dr. Nayely Ferrer Neutrophils/100 WBC (Bld) 86.5 % Critically high 43.0-75.0 [facility] Comment on above: Performed By: #### P OCGLUC #### [facility] [address] [address] [address] Nayely Ferrer Platelet mean volume (Bld) [Entitic vol] 9.6 fL Normal 9.5-13.5 [facility] Comment on above: Performed By: #### P OCGLUC #### [facility] [address] [place] [address] Dr. Nayely Ferrer PLT 133 103/ul Critically low 150-450 [facility] Comment on above: Performed By: #### P OCGLUC #### [facility] [address] [address] [address] Nayely Ferrer RBC 4.03 106/ul Critically low 4.70-6.10 [facility] Comment on above: Performed By: #### P OCGLUC #### [facility] [address] [place] [address] Dr. Nayely Ferrer WBC 11.1 103/ul Critically high 4.0-11.0 [facility] Comment on above: Performed By: #### P OCGLUC #### [facility] [address] [place] [address] Dr. Nayely Ferrer CULTURE BLOODon 06-19-2022 Microscopic [...] F Trimethoprim/Sulfamethoxazol e >=320 R F Normal [facility] Comment on above: Performed By: #### B [id number] #### [facility] [address] [place] [address] Dr. Nayely Ferrer CULTURE URINEon 06-19-2022 CULTURE [...] F Trimethoprim/Sulfamethoxazol e >=320 R F Normal [facility] Comment on above: Performed By: #### U RCX #### [facility] [address] [place] [address] Dr. Nayely Ferrer POINT OF CARE GLUCOSEon Glucose [Mass/Vol] 187 mg/dL Critically high [address] [place] [address] Comment on above: Performed By: #### P OCGLUC #### [facility] [address] [place] [address] Dr. Nayely Ferrer Glucose [Mass/Vol] 188 mg/dL Critically high [address] [place] [address] Comment on above: Performed By: #### P OCGLUC #### [facility] [address] [place] [address] Dr. Nayely Ferrer Glucose [Mass/Vol] 251 mg/dL Critically high [address] [place] [address] Comment on above: Performed By: #### P OCGLUC #### [facility] [address] [address] [address] Nayely Ferrer Glucose [Mass/Vol] 239 mg/dL Critically high [address] [place] [address] Comment on above: Performed By: #### P OCGLUC #### [facility] [address] [place] [address] Dr. Nayely Ferrer PROF CHEM 8 (BAS METB)on Anion gap [Moles/Vol] 16.0 mmol/L Normal [facility] Comment on above: Performed By: #### P OCGLUC #### [facility] [address] [place], [place] [id number] Dr. Nayely Ferrer Calcium [Mass/Vol] 8.3 mg/dL Critically low 8.5-10.1 [facility] Comment on above: Performed By: #### P OCGLUC #### [facility] [address] [address] [address] Nayely Ferrer Chloride [Moles/Vol] 100 mmol/L Normal 98-107 [facility] Comment on above: Performed By: #### P OCGLUC #### [facility] [address] [address] [address] Nayely Ferrer CO2 [Moles/Vol] 21.3 mmol/L Normal 21.0-32.0 [facility] Comment on above: Performed By: #### P OCGLUC #### [facility] [address] [place] [address] Dr. Nayely Ferrer Creatinine [Mass/Vol] 1.51 mg/dL Critically high 0.70-1.30 [facility] Comment on above: Performed By: #### P OCGLUC #### [facility] [address] [address] [address] Nayely Ferrer EGFR-AF CYMRAES >60 Normal >=60 [facility] Comment on above: Performed By: #### P OCGLUC #### [facility] [address] [place] [address] Dr. Nayely Ferrer EGFR-NON AF CYMRAES 50 mL/min/1.73m2 Critically low >=60 [facility] Comment on above: Performed By: #### P OCGLUC #### [facility] [address] [address] [address] Nayely Ferrer Glucose [Mass/Vol] 237 mg/dL Critically high 74-106 [facility] Comment on above: Performed By: #### P OCGLUC #### [facility] [address] [address] [address] Nayely Ferrer Potassium [Moles/Vol] 3.3 mmol/L Critically low 3.5-5.1 [facility] Comment on above: Performed By: #### P OCGLUC #### [facility] [address] [address] [address] Nayely Ferrer Sodium [Moles/Vol] 134 mmol/L Critically low 136-145 Th [facility] Comment on above: Performed By: #### P OCGLUC #### [facility] [address] [address] [address] Nayely Ferrer Urea nitrogen [Mass/Vol] 20.0 mg/dL Critically high 7.0-18.0 [facility] Comment on above: Performed By: #### P OCGLUC #### [facility] [address] [place] [address] Dr. Nayely Ferrer Urea nitrogen/Creatinine [Mass ratio] 13.2 mg/mg Normal [facility] Comment on above: Performed By: #### P OCGLUC #### [facility] [address] [place] [address] Dr. Nayely Ferrer CBC AUTO DIFFon 06-18-2022 BASO # 0.0 103/ul Normal 0.0-0.1 [facility] Comment on above: Performed By: #### P OCGLUC #### [facility] [address] [place] [address] Dr. Nayely Ferrer Basophils/100 WBC (Bld) 0.3 % Normal 0.2-2.0 [facility] Comment on above: Performed By: #### P OCGLUC #### [facility] [address] [place] [address] Dr. Nayely Ferrer EO # 0.0 103/ul Normal 0.0-0.7 [facility] Comment on above: Performed By: #### P OCGLUC #### [facility] [address] [place] [address] Dr. Nayely Ferrer Eosinophils/100 WBC (Bld) 0.1 % Critically low 0.9-7.0 [facility] Comment on above: Performed By: #### P OCGLUC #### [facility] [address] [place] [address] Dr. Nayely Ferrer Erythrocyte distribution width (RBC) [Ratio] 13.4 % Normal 11.0-15.0 [facility] Comment on above: Performed By: #### P OCGLUC #### [facility] [address] [address] [address] Nayely Ferrer Hematocrit (Bld) [Volume fraction] 33.0 % Critically low 42.0-54.0 [facility] Comment on above: Performed By: #### P OCGLUC #### [facility] [address] [address] [address] Nayely Ferrer Hemoglobin (Bld) [Mass/Vol] 11.4 g/dL Critically low 14.0-18.0 [facility] Comment on above: Performed By: #### P OCGLUC #### [facility] [address] [place] [address] Dr. Nayely Ferrer IG # 0.06 10e3/ul Critically high 0.00-0.03 [facility] Comment on above: Performed By: #### P OCGLUC #### [facility] [address] [place] [address] Dr. Nayely Ferrer IG % 0.5 % Normal 0.0-0.5 [facility] Comment on above: Performed By: #### P OCGLUC #### [facility] [address] [place] [address] Dr. Nayely Ferrer LYMPH # 0.8 103/ul Critically low 1.2-3.8 [facility] Comment on above: Performed By: #### P OCGLUC #### [facility] [address] [place] [address] Dr. Nayely Ferrer Lymphocytes/100 WBC (Bld) 6.7 % Critically low 20.5-60.0 [facility] Comment on above: Performed By: #### P OCGLUC #### [facility] [address] [place] [address] Dr. Nayely Ferrer MANUAL DIFF REQ NO Normal [facility] Comment on above: Performed By: #### P OCGLUC #### [facility] [address] [place] [address] Dr. Nayely Ferrer MCH (RBC) [Entitic mass] 29.9 pg Normal 25.9-34.0 [facility] Comment on above: Performed By: #### P OCGLUC #### [facility] [address] [address] [address] Nayely Ferrer MCHC (RBC) [Mass/Vol] 34.5 g/dL Normal 29.9-35.2 [facility] Comment on above: Performed By: #### P OCGLUC #### [facility] [address] [address] [address] Nayely Ferrer MCV (RBC) [Entitic vol] 86.6 fL Normal 80.0-94.0 [facility] Comment on above: Performed By: #### P OCGLUC #### [facility] [address] [address] [address] Nayely Ferrer MONO # 0.7 103/ul Normal 0.3-0.8 [facility] Comment on above: Performed By: #### P OCGLUC #### [facility] [address] [place] [address] Dr. Nayely Ferrer Monocytes/100 WBC (Bld) 5.6 % Normal 1.7-12.0 [facility] Comment on above: Performed By: #### P OCGLUC #### [facility] [address] [place] [address] Dr. Nayely Ferrer NEUT # 10.4 103/ul Critically high 1.4-6.5 [facility] Comment on above: Performed By: #### P OCGLUC #### [facility] [address] [place] [address] Dr. Nayely Ferrer Neutrophils/100 WBC (Bld) 86.8 % Critically high 43.0-75.0 [facility] Comment on above: Performed By: #### P OCGLUC #### [facility] [address] [address] [address] Nayely Ferrer Platelet mean volume (Bld) [Entitic vol] 9.6 fL Normal 9.5-13.5 [facility] Comment on above: Performed By: #### P OCGLUC #### [facility] [address] [place] [address] Dr. Nayely Ferrer PLT 113 103/ul Critically low 150-450 [facility] Comment on above: Performed By: #### P OCGLUC #### [facility] [address] [address] [address] Nayely Ferrer RBC 3.81 106/ul Critically low 4.70-6.10 [facility] Comment on above: Performed By: #### P OCGLUC #### [facility] [address] [address] [address] Nayely Ferrer WBC 12.0 103/ul Critically high 4.0-11.0 [facility] Comment on above: Performed By: #### P OCGLUC #### [facility] [address] [address] [address] Nayely Ferrer CULTURE BLOODon 06-18-2022 Microscopic examination of blood, culture Culture Observations: NO GROWTH AT 5 DAYS. Isolate 1 [id number] Normal [facility] Comment on above: Performed By: #### B [id number] #### [facility] [address] [place] [address] Dr. Nayely Ferrer OCC BLD IMMUNOASSAYon 2022 OCCULT BLOOD Positive Abnormal NEGATIVE [facility] Comment on above: Performed By: #### P OCGLUC #### [facility] [address] [address] [address] Nayely Ferrer POINT OF CARE GLUCOSEon 05-23 Glucose [Mass/Vol] 233 mg/dL Critically high [address] [place] [address] Comment on above: Performed By: #### P OCGLUC #### [facility] [address] [address] [address] Nayely Ferrer Glucose [Mass/Vol] 260 mg/dL Critically high -106 [facility] Comment on above: Performed By: #### P OCGLUC #### [facility] [address] [place] [address] Dr. Nayely Ferrer Glucose [Mass/Vol] 223 mg/dL Critically high [address] [place] [address] Comment on above: Performed By: #### P OCGLUC #### [facility] [address] [place] [address] Dr. Nayely Ferrer Glucose [Mass/Vol] 266 mg/dL Critically high [facility]106 [facility] Comment on above: Performed By: #### P OCGLUC #### [facility] [address] [address] [address] Nayely Ferrer PROF CHEM 8 (BAS METB)on Anion gap [Moles/Vol] 14.4 mmol/L Normal [facility] Comment on above: Performed By: #### P OCGLUC #### [facility] [address] [address] [address] Nayely Ferrer Calcium [Mass/Vol] 8.1 mg/dL Critically low 8.5-10.1 [facility] Comment on above: Performed By: #### P OCGLUC #### [facility] [address] [address] [address] Nayely Ferrer Chloride [Moles/Vol] 100 mmol/L Normal 98-107 [facility] Comment on above: Performed By: #### P OCGLUC #### [facility] [address] [address] [address] Nayely Ferrer CO2 [Moles/Vol] 21.9 mmol/L Normal 21.0-32.0 [facility] Comment on above: Performed By: #### P OCGLUC #### [facility] [address] [address] [address] Nayely Ferrer Creatinine [Mass/Vol] 1.43 mg/dL Critically high 0.70-1.30 [facility] Comment on above: Performed By: #### P OCGLUC #### [facility] [address] [place] [address] Dr. Nayely Ferrer EGFR-AF CYMRAES >60 Normal >=60 [facility] Comment on above: Performed By: #### P OCGLUC #### [facility] [address] [address] [address] Nayely Ferrer EGFR-NON AF CYMRAES 53 mL/min/1.73m2 Critically low >=60 [facility] Comment on above: Performed By: #### P OCGLUC #### [facility] [address] [place] [address] Dr. Nayely Ferrer Glucose [Mass/Vol] 264 mg/dL Critically high 74-106 [facility] Comment on above: Performed By: #### P OCGLUC #### [facility] [address] [address] [address] Nayely Ferrer Potassium [Moles/Vol] 3.3 mmol/L Critically low 3.5-5.1 [facility] Comment on above: Performed By: #### P OCGLUC #### [facility] [address] [address] [address] Nayely Ferrer Sodium [Moles/Vol] 133 mmol/L Critically low 136-145 [facility] Comment on above: Performed By: #### P OCGLUC #### [facility] [address] [address] [address] Nayely Ferrer Urea nitrogen [Mass/Vol] 18.0 mg/dL Normal 7.0-18.0 [facility] Comment on above: Performed By: #### P OCGLUC #### [facility] [address] [address] [address] Nayely Ferrer Urea nitrogen/Creatinine [Mass ratio] 12.6 mg/mg Normal [facility] Comment on above: Performed By: #### P OCGLUC #### [facility] [address] [address] [address] Nayely Ferrer CBC AUTO DIFFon 06-17-2022 BASO # 0.0 103/ul Normal 0.0-0.1 [facility] Comment on above: Performed By: #### P OCGLUC #### [facility] [address] [address] [address] Nayely Ferrer Basophils/100 WBC (Bld) 0.3 % Normal 0.2-2.0 [facility] Comment on above: Performed By: #### P OCGLUC #### [facility] [address] [address] [address] Nayely Ferrer EO # 0.1 103/ul Normal 0.0-0.7 [facility] Comment on above: Performed By: #### P OCGLUC #### [facility] [address] [address] [address] Nayely Ferrer Eosinophils/100 WBC (Bld) 0.9 % Normal 0.9-7.0 [facility] Comment on above: Performed By: #### P OCGLUC #### [facility] [address] [address] [address] Nayely Ferrer Erythrocyte distribution width (RBC) [Ratio] 13.2 % Normal 11.0-15.0 [facility] Comment on above: Performed By: #### P OCGLUC #### [facility] [address] [place] [address] Dr. Nayely Ferrer Hematocrit (Bld) [Volume fraction] 37.1 % Critically low 42.0-54.0 [facility] Comment on above: Performed By: #### P OCGLUC #### [facility] [address] [place] [address] Dr. Nayely Ferrer Hemoglobin (Bld) [Mass/Vol] 12.5 g/dL Critically low 14.0-18.0 [facility] Comment on above: Performed By: #### P OCGLUC #### [facility] [address] [place] [address] Dr. Nayely Ferrer IG # 0.16 10e3/ul Critically high 0.00-0.03 [facility] Comment on above: Performed By: #### P OCGLUC #### [facility] [address] [place] [address] Dr. Nayely Ferrer IG % 1.1 % Critically high 0.0-0.5 [facility] Comment on above: Performed By: #### P OCGLUC #### [facility] [address] [place] [address] Dr. Nayely Ferrer LYMPH # 0.8 103/ul Critically low 1.2-3.8 [facility] Comment on above: Performed By: #### P OCGLUC #### [facility] [address] [place] [address] Dr. Nayely Ferrer Lymphocytes/100 WBC (Bld) 5.5 % Critically low 20.5-60.0 [facility] Comment on above: Performed By: #### P OCGLUC #### [facility] [address] [place] [address] Dr. Nayely Ferrer MANUAL DIFF REQ NO Normal [facility] Comment on above: Performed By: #### P OCGLUC #### [facility] [address] [address] [address] Nayely Ferrer MCH (RBC) [Entitic mass] 29.5 pg Normal 25.9-34.0 [facility] Comment on above: Performed By: #### P OCGLUC #### [facility] [address] [place] [address] Dr. Nayely Ferrer MCHC (RBC) [Mass/Vol] 33.7 g/dL Normal 29.9-35.2 [facility] Comment on above: Performed By: #### P OCGLUC #### [facility] [address] [place] [address] Dr. Nayely Ferrer MCV (RBC) [Entitic vol] 87.5 fL Normal 80.0-94.0 [facility] Comment on above: Performed By: #### P OCGLUC #### [facility] [address] [place] [address] Dr. Nayely Ferrer MONO # 0.8 103/ul Normal 0.3-0.8 [facility] Comment on above: Performed By: #### P OCGLUC #### [facility] [address] [place] [address] Dr. Nayely Ferrer Monocytes/100 WBC (Bld) 5.3 % Normal 1.7-12.0 [facility] Comment on above: Performed By: #### P OCGLUC #### [facility] [address] [place] [address] Dr. Nayely Ferrer NEUT # 12.7 103/ul Critically high 1.4-6.5 [facility] Comment on above: Performed By: #### P OCGLUC #### [facility] [address] [place] [address] Dr. Nayely Ferrer Neutrophils/100 WBC (Bld) 86.9 % Critically high 43.0-75.0 [facility] Comment on above: Performed By: #### P OCGLUC #### [facility] [address] [place] [address] Dr. Nayely Ferrer Platelet mean volume (Bld) [Entitic vol] 9.6 fL Normal 9.5-13.5 [facility] Comment on above: Performed By: #### P OCGLUC #### [facility] [address] [address] [address] Nayely Ferrer PLT 133 103/ul Critically low 150-450 [facility] Comment on above: Performed By: #### P OCGLUC #### [facility] [address] [address] [address] Nayely Ferrer RBC 4.24 106/ul Critically low 4.70-6.10 [facility] Comment on above: Performed By: #### P OCGLUC #### [facility] [address] [address] [address] Nayely Ferrer WBC 14.7 103/ul Critically high 4.0-11.0 [facility] Comment on above: Performed By: #### P OCGLUC #### [facility] [address] [place] [address] Dr. Nayely Ferrer DRUG SCREEN RAPID (URINE)on 06-17-2022 AMP Negative Normal NEGATIVE [facility] Comment on above: Performed By: #### P OCGLUC #### [facility] [address] [address] [address] Nayely Ferrer BAR Negative Normal NEGATIVE [facility] Comment on above: Performed By: #### P OCGLUC #### [facility] [address] [place] [address] Dr. Nayely Ferrer BUP Negative Normal NEGATIVE [facility] Comment on above: Performed By: #### P OCGLUC #### [facility] [address] [place] [address] Dr. Nayely Ferrer BZO Negative Normal NEGATIVE [facility] Comment on above: Performed By: #### P OCGLUC #### [facility] [address] [place] [address] Dr. Nayely Ferrer JOSE MANUEL Negative Normal NEGATIVE [facility] Comment on above: Performed By: #### P OCGLUC #### [facility] [address] [place] [address] Dr. Nayely Ferrer CUT-OFFS SEE BELOW Normal [facility] Comment on above: Result Comment: AMP [...] ng/mL Performed By: #### P OCGLUC #### [facility] [address] [place] [address] Dr. Nayely Ferrer DRUG CUT HEADER DRUG CLASS TEST SYST EM CUT-OFF CONCENTRATIONS ARE FOLLOWS: Normal [facility] Comment on above: Performed By: #### P OCGLUC #### [facility] [address] [place] [address] Dr. Nayely Ferrer mAMP Negative Normal NEGATIVE [facility] Comment on above: Performed By: #### P OCGLUC #### [facility] [address] [place] [address] Dr. Nayely Ferrer MTD Negative Normal NEGATIVE [facility] Comment on above: Performed By: #### P OCGLUC #### [facility] [address] [place] [address] Dr. Nayely Ferrer OPI Negative Normal NEGATIVE [facility] Comment on above: Performed By: #### P OCGLUC #### [facility] [address] [place] [address] Dr. Nayely Ferrer OXY Negative Normal NEGATIVE [facility] Comment on above: Performed By: #### P OCGLUC #### [facility] [address] [place] [address] Dr. Nayely Ferrer PCP Negative Normal NEGATIVE [facility] Comment on above: Performed By: #### P OCGLUC #### [facility] [address] [place] [address] Dr. Nayely Ferrer PPX Negative Normal NEGATIVE [facility] Comment on above: Performed By: #### P OCGLUC #### [facility] [address] [address] [address] Nayely Ferrer TCA Negative Normal NEGATIVE [facility] Comment on above: Performed By: #### P OCGLUC #### [facility] [address] [address] [address] Nayely Ferrer THC Negative Normal NEGATIVE [facility] Comment on above: Performed By: #### P OCGLUC #### [facility] [address] [address] [address] Nayely Ferrer GENTAMICIN RANDOMon 06-17-19 23 GENTAMICIN 3.6 ug/mL Normal [facility] Comment on above: Performed By: #### P OCGLUC #### [facility] [address] [address] [address] Nayely Ferrer POINT OF CARE GLUCOSEon 05-23 Glucose [Mass/Vol] 307 mg/dL Critically high [facility]106 [facility] Comment on above: Performed By: #### P OCGLUC #### [facility] [address] [address] [address] Nayely Ferrer Glucose [Mass/Vol] 290 mg/dL Critically high [address] [place] [address] Comment on above: Performed By: #### P OCGLUC #### [facility] [address] [address] [address] Nayely Ferrer Glucose [Mass/Vol] 287 mg/dL Critically high [address] [place] [address] Comment on above: Performed By: #### P OCGLUC #### [facility] [address] [address] [address] Nayely Ferrer PROF CHEM 8 (BAS METB)on Anion gap [Moles/Vol] 15.4 mmol/L Normal [facility] Comment on above: Performed By: #### P OCGLUC #### [facility] [address] [address] [address] Nayely Ferrer Calcium [Mass/Vol] 8.2 mg/dL Critically low 8.5-10.1 [facility] Comment on above: Performed By: #### P OCGLUC #### [facility] [address] [address] [address] Nayely Ferrer Chloride [Moles/Vol] 97 mmol/L Critically low 98-107 [facility] Comment on above: Performed By: #### P OCGLUC #### [facility] [address] [address] [address] Nayely Ferrer CO2 [Moles/Vol] 23.2 mmol/L Normal 21.0-32.0 [facility] Comment on above: Performed By: #### P OCGLUC #### [facility] [address] [address] [address] Nayely Ferrer Creatinine [Mass/Vol] 1.36 mg/dL Critically high 0.70-1.30 [facility] Comment on above: Performed By: #### P OCGLUC #### [facility] [address] [address] [address] Nayely Fererr EGFR-AF CYMRAES >60 Normal >=60 [facility] Comment on above: Performed By: #### P OCGLUC #### [facility] [address] [address] [address] Nayely Ferrer EGFR-NON AF CYMRAES 57 mL/min/1.73m2 Critically low >=60 [facility] Comment on above: Performed By: #### P OCGLUC #### [facility] [address] [address] [address] Nayely Ferrer Glucose [Mass/Vol] 283 mg/dL Critically high 74-106 [facility] Comment on above: Performed By: #### P OCGLUC #### [facility] [address] [address] [address] Nayely Ferrer Potassium [Moles/Vol] 3.6 mmol/L Normal 3.5-5.1 [facility] Comment on above: Performed By: #### P OCGLUC #### [facility] [address] [address] [address] Nayely Ferrer Sodium [Moles/Vol] 132 mmol/L Critically low 136-145 [facility] Comment on above: Performed By: #### P OCGLUC #### [facility] [address] [place] [address] Dr. Nayely Ferrer Urea nitrogen [Mass/Vol] 15.0 mg/dL Normal 7.0-18.0 [facility] Comment on above: Performed By: #### P OCGLUC #### [facility] [address] [place] [address] Dr. Nayely Ferrer Urea nitrogen/Creatinine [Mass ratio] 11.0 mg/mg Normal [facility] Comment on above: Performed By: #### P OCGLUC #### [facility] [address] [place] [address] Dr. Nayely Ferrer BLOOD CULTURE ID PANELon A. baumannii Not detected Normal NOT DETECTED [facility] Comment on above: Performed By: #### P OCGLUC #### [facility] [address] [place] [address] Dr. Nayely Ferrer Bacteriodes fragilis Not detected Normal NOT DETECTED [facility] Comment on above: Performed By: #### P OCGLUC #### [facility] [address] [place] [address] Dr. Nayely Ferrer BCID CONTROLS PASSED [facility] Comment on above: Performed By: #### P OCGLUC #### [facility] [address] [place] [address] Dr. Nayely JARAMILLODBTHD BLOOD CULTURE BOTTLE INFORMATION Normal [facility] Comment on above: Performed By: #### P OCGLUC #### [facility] [address] [place] [address] Dr. Nayely Ferrer BCIDHD1 ANTIMICROBIAL RESIST ANCE GENES Normal [facility] Comment on above: Performed By: #### P OCGLUC #### [facility] [address] [place] [address] Dr. Nayely Ferrer BCIDHD2 SEE BELOW [facility] Comment on above: Result Comment: Note : Antimicrobial resitance can occur via multiple mechanisms. A Not Detected result for the [employer] antomicrobial resistance gene assays does not indicate antimicrobial susceptibility. Subculturing is required for species identification and susceptibility testing of isolates. Performed By: #### P OCGLUC #### [facility] [address] [address] [address] Nayely Ferrer BCIDHD3 Positive Normal [facility] Comment on above: Performed By: #### P OCGLUC #### [facility] [address] [address] [address] Nayely Ferrer BCIDHD4 Negative Normal [facility] Comment on above: Performed By: #### P OCGLUC #### [facility] [address] [address] [address] Nayely Ferrer BCIDHD5 YEAST Normal [facility] Comment on above: Performed By: #### P OCGLUC #### [facility] [address] [address] [address] Nayely Ferrer Bottle Set: Set 1 Normal [facility] Comment on above: Performed By: #### P OCGLUC #### [facility] [address] [place] [address] Dr. Nayely Ferrer Bottle: Aerobic Normal [facility] Comment on above: Performed By: #### P OCGLUC #### [facility] [address] [place] [address] Dr. Nayely Ferrer C. neoformans/gattii Not detected Normal NOT DETECTED [facility] Comment on above: Performed By: #### P OCGLUC #### [facility] [address] [place] [address] Dr. Nayely Ferrer Cindy albicans Not detected Normal NOT DETECTED [facility] Comment on above: Performed By: #### P OCGLUC #### [facility] [address] [place] [address] Dr. Nayely Ferrer Cindy auris Not detected Normal NOT DETECTED [facility] Comment on above: Performed By: #### P OCGLUC #### [facility] [address] [place] [address] Dr. Nayely Ferrer Cindy glabrata Not detected Normal NOT DETECTED [facility] Comment on above: Performed By: #### P OCGLUC #### [facility] [address] [place] [address] Dr. Nayely Ferrer Cindy Krusei Not detected Normal NOT DETECTED [facility] Comment on above: Performed By: #### P OCGLUC #### [facility] [address] [place] [address] Dr. Nayely Ferrer Cindy Parapsilosis Not detected Normal NOT DETECTED [facility] Comment on above: Performed By: #### P OCGLUC #### [facility] [address] [place] [address] Dr. Nayely Ferrer Cindy Tropicalis Not detected Normal NOT DETECTED [facility] Comment on above: Performed By: #### P OCGLUC #### [facility] [address] [place] [address] Dr. Nayely Ferrer CTX-M Resistant Gene Detected Abnormal NOT DETECTED [facility] Comment on above: Performed By: #### P OCGLUC #### [facility] [address] [place] [address] Dr. Nayely Ferrer E. Cloacae complex Not detected Normal NOT DETECTED [facility] Comment on above: Performed By: #### P OCGLUC #### [facility] [address] [place] [address] Dr. Nayely Ferrer E. faecalis Not detected Normal NOT DETECTED [facility] Comment on above: Performed By: #### P OCGLUC #### [facility] [address] [place] [address] Dr. Nayely Ferrer E. faecium Not detected Normal NOT DETECTED [facility] Comment on above: Performed By: #### P OCGLUC #### [facility] [address] [place] [address] Dr. Nayely Ferrer Enterobacteriaceae Detected Critically abnormal NOT DETECTED [facility] Comment on above: Performed By: #### P OCGLUC #### [facility] [address] [place] [address] Dr. Nayely Ferrer Escherichia coli Detected Critically abnormal NOT DETECTED [facility] Comment on above: Performed By: #### P OCGLUC #### [facility] [address] [place] [address] Dr. Nayely Ferrer H. influenzae Not detected Normal NOT DETECTED [facility] Comment on above: Performed By: #### P OCGLUC #### [facility] [address] [place] [address] Dr. Nayely Ferrer IMP Resistant Gene Not detected Normal NOT DETECTED [facility] Comment on above: Performed By: #### P OCGLUC #### [facility] [address] [place] [address] Dr. Nayely Ferrer K. oxytoca Not detected Normal NOT DETECTED [facility] Comment on above: Performed By: #### P OCGLUC #### [facility] [address] [place] [address] Dr. Nayely Ferrer K. pneumoniae Not detected Normal NOT DETECTED [facility] Comment on above: Performed By: #### P OCGLUC #### [facility] [address] [place] [address] Dr. Nayely Ferrer Klebsiella aerogenes Not detected Normal NOT DETECTED [facility] Comment on above: Performed By: #### P OCGLUC #### [facility] [address] [place] [address] Dr. Nayely Ferrer KPC Resistant Gene Not detected Normal NOT DETECTED [facility] Comment on above: Performed By: #### P OCGLUC #### [facility] [address] [place] [address] Dr. Nayely Ferrer List. monocytogenes Not detected Normal NOT DETECTED [facility] Comment on above: Performed By: #### P OCGLUC #### [facility] [address] [place] [address] Dr. Nayely Ferrer Mcr-1 Resistant Gene Not detected Normal NOT DETECTED [facility] Comment on above: Performed By: #### P OCGLUC #### [facility] [address] [place] [address] Dr. Nayely Ferrer mecA/C Not Applicable Normal NOT DETECTED [facility] Comment on above: Performed By: #### P OCGLUC #### [facility] [address] [place] [address] Dr. Nayely Ferrer mecA/C MREJ Not Applicable Normal NOT DETECTED [facility] Comment on above: Performed By: #### P OCGLUC #### [facility] [address] [place] [address] Dr. Nayely Ferrer N. meningitidis Not detected Normal NOT DETECTED [facility] Comment on above: Performed By: #### P OCGLUC #### [facility] [address] [place] [address] Dr. Nayely Ferrer NDM Resistant Gene Not detected Normal NOT DETECTED [facility] Comment on above: Performed By: #### P OCGLUC #### [facility] [address] [place] [address] Dr. Nayely Ferrer Oxa-48-like Not detected Normal NOT DETECTED [facility] Comment on above: Performed By: #### P OCGLUC #### [facility] [address] [place] [address] Dr. Nayely Ferrer Proteus Not detected Normal NOT DETECTED [facility] Comment on above: Performed By: #### P OCGLUC #### [facility] [address] [place] [address] Dr. Nayely Ferrer Pseud. aeruginosa Not detected Normal NOT DETECTED [facility] Comment on above: Performed By: #### P OCGLUC #### [facility] [address] [place] [address] Dr. Nayely Ferrer S. maltophilia Not detected Normal NOT DETECTED [facility] Comment on above: Performed By: #### P OCGLUC #### [facility] [address] [place] [address] Dr. Nayely Ferrer Salmonella Not detected Normal NOT DETECTED [facility] Comment on above: Performed By: #### P OCGLUC #### [facility] [address] [place] [address] Dr. Nayely Ferrer Seratia marcescens Not detected Normal NOT DETECTED [facility] Comment on above: Performed By: #### P OCGLUC #### [facility] [address] [place] [address] Dr. Nayely Ferrer Site: Lt Wrist Normal [facility] Comment on above: Performed By: #### P OCGLUC #### [facility] [address] [place] [address] Dr. Nayely Ferrer Staph. aureus Not detected Normal NOT DETECTED [facility] Comment on above: Performed By: #### P OCGLUC #### [facility] [address] [place] [address] Dr. Nayely Ferrer Staph. epidermidis Not detected Normal NOT DETECTED [facility] Comment on above: Performed By: #### P OCGLUC #### [facility] [address] [place] [address] Dr. Nayely Ferrer Staph. lugdunensis Not detected Normal NOT DETECTED [facility] Comment on above: Performed By: #### P OCGLUC #### [facility] [address] [place] [address] Dr. Nayely Ferrer Staphylococcus Not detected Normal NOT DETECTED [facility] Comment on above: Performed By: #### P OCGLUC #### [facility] [address] [place] [address] Dr. Nayely Ferrer Strep. agalactiae Not detected Normal NOT DETECTED [facility] Comment on above: Performed By: #### P OCGLUC #### [facility] [address] [place] [address] Dr. Nayely Ferrer Strep. pneumoniae Not detected Normal NOT DETECTED [facility] Comment on above: Performed By: #### P OCGLUC #### [facility] [address] [place] [address] Dr. Nayely Ferrer Strep. pyogenes Not detected Normal NOT DETECTED [facility] Comment on above: Performed By: #### P OCGLUC #### [facility] [address] [place] [address] Dr. Nayely Ferrer Streptococcus Not detected Normal NOT DETECTED [facility] Comment on above: Performed By: #### P OCGLUC #### [facility] [address] [place] [address] Dr. Nayely Ferrer Virginia/B Resist. Gene Not Applicable Normal NOT DETECTED [facility] Comment on above: Performed By: #### P OCGLUC #### [facility] [address] [place] [address] Dr. Nayely Ferrer VIM Resistant Gene Not detected Normal NOT DETECTED [facility] Comment on above: Performed By: #### P OCGLUC #### [facility] [address] [place] [address] Dr. Nayely Ferrer CBC AUTO DIFFon 06-16-2022 BASO # 0.1 103/ul Normal 0.0-0.1 [facility] Comment on above: Performed By: #### P OCGLUC #### [facility] [address] [address] [address] Nayely Ferrer Basophils/100 WBC (Bld) 0.3 % Normal 0.2-2.0 [facility] Comment on above: Performed By: #### P OCGLUC #### [facility] [address] [address] [address] Nayely Ferrer EO # 0.0 103/ul Normal 0.0-0.7 [facility] Comment on above: Performed By: #### P OCGLUC #### [facility] [address] [address] [address] Nayely Ferrer Eosinophils/100 WBC (Bld) 0.0 % Critically low 0.9-7.0 [facility] Comment on above: Performed By: #### P OCGLUC #### [facility] [address] [place] [address] Dr. Nayely Ferrer Erythrocyte distribution width (RBC) [Ratio] 13.2 % Normal 11.0-15.0 [facility] Comment on above: Performed By: #### P OCGLUC #### [facility] [address] [place] [address] Dr. Nayely Ferrer Hematocrit (Bld) [Volume fraction] 40.3 % Critically low 42.0-54.0 [facility] Comment on above: Performed By: #### P OCGLUC #### [facility] [address] [place] [address] Dr. Nayely Ferrer Hemoglobin (Bld) [Mass/Vol] 14.0 g/dL Normal 14.0-18.0 [facility] Comment on above: Performed By: #### P OCGLUC #### [facility] [address] [place] [address] Dr. Nayely Ferrer IG # 0.18 10e3/ul Critically high 0.00-0.03 [facility] Comment on above: Performed By: #### P OCGLUC #### [facility] [address] [place] [address] Dr. Nayely Ferrer IG % 1.0 % Critically high 0.0-0.5 [facility] Comment on above: Performed By: #### P OCGLUC #### [facility] [address] [address] [address] Nayely Ferrer LYMPH # 0.8 103/ul Critically low 1.2-3.8 [facility] Comment on above: Performed By: #### P OCGLUC #### [facility] [address] [address] [address] Nayely Ferrer Lymphocytes/100 WBC (Bld) 4.3 % Critically low 20.5-60.0 [facility] Comment on above: Performed By: #### P OCGLUC #### [facility] [address] [place] [address] Dr. Nayely Ferrer MANUAL DIFF REQ NO Normal [facility] Comment on above: Performed By: #### P OCGLUC #### [facility] [address] [place] [address] Dr. Nayely Ferrer MCH (RBC) [Entitic mass] 29.7 pg Normal 25.9-34.0 [facility] Comment on above: Performed By: #### P OCGLUC #### [facility] [address] [place] [address] Dr. Nayely Ferrer MCHC (RBC) [Mass/Vol] 34.7 g/dL Normal 29.9-35.2 [facility] Comment on above: Performed By: #### P OCGLUC #### [facility] [address] [place] [address] Dr. Nayely Ferrer MCV (RBC) [Entitic vol] 85.6 fL Normal 80.0-94.0 [facility] Comment on above: Performed By: #### P OCGLUC #### [facility] [address] [place] [address] Dr. Nayely Ferrer MONO # 0.8 103/ul Normal 0.3-0.8 [facility] Comment on above: Performed By: #### P OCGLUC #### [facility] [address] [address] [address] Nayely Ferrer Monocytes/100 WBC (Bld) 4.7 % Normal 1.7-12.0 [facility] Comment on above: Performed By: #### P OCGLUC #### [facility] [address] [address] [address] Nayely Ferrer NEUT # 15.7 103/ul Critically high 1.4-6.5 [facility] Comment on above: Performed By: #### P OCGLUC #### [facility] [address] [address] [address] Nayely Ferrer Neutrophils/100 WBC (Bld) 89.7 % Critically high 43.0-75.0 [facility] Comment on above: Performed By: #### P OCGLUC #### [facility] [address] [address] [address] Nayely Ferrer Platelet mean volume (Bld) [Entitic vol] 9.6 fL Normal 9.5-13.5 [facility] Comment on above: Performed By: #### P OCGLUC #### [facility] [address] [address] [address] Nayely Ferrer PLT 153 103/ul Normal 150-450 [facility] Comment on above: Performed By: #### P OCGLUC #### [facility] [address] [place] [address] Dr. Nayely Ferrer RBC 4.71 106/ul Normal 4.70-6.10 [facility] Comment on above: Performed By: #### P OCGLUC #### [facility] [address] [place] [address] Dr. Nayely Ferrer WBC 17.5 103/ul Critically high 4.0-11.0 [facility] Comment on above: Performed By: #### P OCGLUC #### [facility] [address] [place] [address] ABD/PELVIS WO CONon [...] ASIA BAXTER Date: 2022-06-16 20:11 Normal [facility] CULTURE BLOODon 06-16-2022 Microscopic examination of blood, culture Culture Observations: Aerobic bottle positive; BCID: E. Coli called to Emelyn Blue RN Culture Observations: Refer to accession #[id number] for susceptibilities Culture Observations: NO GROWTH IN ANAEROBIC BOTTLE AT 5 DAYS. Isolate 1 [id number] Growth of Normal [facility] Comment on above: Performed By: #### B LDCX2 #### [facility] [address] [place] [address] Dr. Nayely Ferrer Covid-19 PCR (CVDTB)on 05-23 SARS-CoV-2 (COVID-19) RNA JOSIE+probe Ql (Unsp spec) Not detected Normal NOT DETECTED [facility] Comment on above: Result Comment: When diagnostic [...] for this test is supported by the [employer] of Health and Human Service's declaration that [...] used). Performed By: #### P OCGLUC #### [facility] [address] [place] [address] Dr. Nayely Ferrer ER URINE PROFILEon 3 Bilirubin Ql (U) Negative Normal NEGATIVE [facility] Comment on above: Performed By: #### P OCGLUC #### [facility] [address] [place] [address] Dr. Nayely Ferrer Clarity (U) SL CLOUDY Abnormal CLEAR [facility] Comment on above: Performed By: #### P OCGLUC #### [facility] [address] [place] [address] Dr. Nayely Ferrer Color (U) YELLOW Normal YELLOW [facility] Comment on above: Performed By: #### P OCGLUC #### [facility] [address] [place] [address] Dr. Nayely Ferrer ERUAHD A micrscopic examina tion will be performed if indicated. Normal [facility] Comment on above: Performed By: #### P OCGLUC #### [facility] [address] [place] [address] Dr. Nayely Ferrer Glucose Ql (U) >1000 Abnormal NEGATIVE [facility] Comment on above: Performed By: #### P OCGLUC #### [facility] [address] [place] [address] Dr. Nayely Ferrer Hemoglobin Ql (U) LARGE Abnormal NEGATIVE [facility] Comment on above: Performed By: #### P OCGLUC #### [facility] [address] [place] [address] Dr. Nayely Ferrer Ketones Ql (U) 40 mg/dl Abnormal NEGATIVE [facility] Comment on above: Performed By: #### P OCGLUC #### [facility] [address] [place] [address] Dr. Nayely Ferrer LEUKOCYTES TRACE Abnormal NEGATIVE [facility] Comment on above: Performed By: #### P OCGLUC #### [facility] [address] [place] [address] Dr. Nayely Ferrer Nitrite Ql (U) Positive Abnormal NEGATIVE [facility] Comment on above: Performed By: #### P OCGLUC #### [facility] [address] [place] [address] Dr. Nayely Ferrer pH (U) 5.5 [pH] Normal 5-9 [facility] Comment on above: Performed By: #### P OCGLUC #### [facility] [address] [place] [address] Dr. Nayely Ferrer Protein (U) [Mass/Vol] 100 mg/dL Abnormal NEGATIVE/ TRACE [facility] Comment on above: Performed By: #### P OCGLUC #### [facility] [address] [place] [address] Dr. Nayely Ferrer SPEC GRAVITY 1.025 Normal 1.005-<=1. 025 [facility] Comment on above: Performed By: #### P OCGLUC #### [facility] [address] [place] [address] Dr. Nayely Ferrer UR MICRO IND INDICATED Normal [facility] Comment on above: Performed By: #### P OCGLUC #### [facility] [address] [place] [address] Dr. Nayely Ferrer Urobilinogen Qn (U) 0.2 {Ced'U}/dL Normal 0.2 - 1. 0 [facility] Comment on above: Performed By: #### P OCGLUC #### [facility] [address] [place] [address] Dr. Nayely Ferrer LACTATE/LACTIC ACIDon 2022 Lactate [Moles/Vol] 1.7 mmol/L Normal 0.4-1.9 [facility] Comment on above: Performed By: #### P OCGLUC #### [facility] [address] [place] [address] Dr. Nayely Ferrer PROF 14(COMP METB)on 023 Albumin [Mass/Vol] 2.7 g/dL Critically low 3.4-5.0 [facility] Comment on above: Performed By: #### P OCGLUC #### [facility] [address] [place] [address] Dr. Nayely Ferrer Albumin/Globulin [Mass ratio] 0.6 {ratio} Normal [facility] Comment on above: Performed By: #### P OCGLUC #### [facility] [address] [place] [address] Dr. Nayely Ferrer ALP [Catalytic activity/Vol] 82 U/L Normal 46-116 [facility] Comment on above: Performed By: #### P OCGLUC #### [facility] [address] [place] [address] Dr. Nayely Ferrer ALT [Catalytic activity/Vol] 21 U/L Normal 16-63 [facility] Comment on above: Performed By: #### P OCGLUC #### [facility] [address] [place] [address] Dr. Nayely Ferrer Anion gap [Moles/Vol] 16.8 mmol/L Normal [facility] Comment on above: Performed By: #### P OCGLUC #### [facility] [address] [place] [address] Dr. Nayely Ferrer AST [Catalytic activity/Vol] 18 U/L Normal 15-37 [facility] Comment on above: Performed By: #### P OCGLUC #### [facility] [address] [address] [address] Nayely Ferrer Bilirubin [Mass/Vol] 0.9 mg/dL Normal 0.2-1.0 [facility] Comment on above: Performed By: #### P OCGLUC #### [facility] [address] [place] [address] Dr. Nayely Ferrer Calcium [Mass/Vol] 8.8 mg/dL Normal 8.5-10.1 [facility] Comment on above: Performed By: #### P OCGLUC #### [facility] [address] [place] [address] Dr. Nayely Ferrer Chloride [Moles/Vol] 94 mmol/L Critically low 98-107 [facility] Comment on above: Performed By: #### P OCGLUC #### [facility] [address] [place] [address] Dr. Nayely Ferrer CO2 [Moles/Vol] 22.6 mmol/L Normal 21.0-32.0 [facility] Comment on above: Performed By: #### P OCGLUC #### [facility] [address] [place] [address] Dr. Nayely Ferrer Creatinine [Mass/Vol] 1.49 mg/dL Critically high 0.70-1.30 [facility] Comment on above: Performed By: #### P OCGLUC #### [facility] [address] [place] [address] Dr. Nayely Ferrer EGFR-AF CYMRAES >60 Normal >=60 [facility] Comment on above: Performed By: #### P OCGLUC #### [facility] [address] [place] [address] Dr. Nayely Ferrer EGFR-NON AF CYMRAES 51 mL/min/1.73m2 Critically low >=60 [facility] Comment on above: Performed By: #### P OCGLUC #### [facility] [address] [place] [address] Dr. Nayely Ferrer Globulin (S) [Mass/Vol] 4.4 g/dL Normal [facility] Comment on above: Performed By: #### P OCGLUC #### [facility] [address] [place] [address] Dr. Nayely Ferrer Glucose [Mass/Vol] 346 mg/dL Critically high 74-106 [facility] Comment on above: Performed By: #### P OCGLUC #### [facility] [address] [address] [address] Nayely Ferrer Potassium [Moles/Vol] 3.4 mmol/L Critically low 3.5-5.1 [facility] Comment on above: Performed By: #### P OCGLUC #### [facility] [address] [place] [address] Dr. Nayely Ferrer Protein [Mass/Vol] 7.1 g/dL Normal 6.4-8.2 [facility] Comment on above: Performed By: #### P OCGLUC #### [facility] [address] [place] [address] Dr. Nayely Ferrer Sodium [Moles/Vol] 130 mmol/L Critically low 136-145 [facility] Comment on above: Performed By: #### P OCGLUC #### [facility] [address] [place] [address] Dr. Nayely Ferrer Urea nitrogen [Mass/Vol] 16.0 mg/dL Normal 7.0-18.0 [facility] Comment on above: Performed By: #### P OCGLUC #### [facility] [address] [place] [address] Dr. Nayely Ferrer Urea nitrogen/Creatinine [Mass ratio] 10.7 mg/mg Normal [facility] Comment on above: Performed By: #### P OCGLUC #### [facility] [address] [place] [address] Dr. Nayely Ferrer URINE MICROSCOPIC ONLYon BACTERIA LARGE Abnormal NONE SEEN [facility] Comment on above: Performed By: #### P OCGLUC #### [facility] [address] [place] [address] Dr. Nayely Ferrer Bacteria identified Cx Nom (U) INDICATED Normal [facility] Comment on above: Performed By: #### P OCGLUC #### [facility] [address] [place] [address] Dr. Nayely Ferrer CAST NONE SEEN Normal NONE SEEN [facility] Comment on above: Performed By: #### P OCGLUC #### [facility] [address] [address] [address] Nayley Ferrer Crystals LM Nom (Urine sed) NONE SEEN Normal NONE SEEN [facility] Comment on above: Performed By: #### P OCGLUC #### [facility] [address] [address] [address] Nayely Ferrer Epithelial cells LM Ql (Urine sed) FEW Abnormal NONE SEEN /RARE [facility] Comment on above: Performed By: #### P OCGLUC #### [facility] [address] [address] [address] Nayely Ferrer MUCOUS NONE SEEN Normal NONE SEEN [facility] Comment on above: Performed By: #### P OCGLUC #### [facility] [address] [address] [address] Nayely Ferrer RBC (U) [#/Vol] /uL Abnormal 0-2 [facility] Comment on above: Performed By: #### P OCGLUC #### [facility] [address] [address] [address] Nayely Ferrer WBC 75-100 Abnormal NONE SEEN [facility] Comment on above: Performed By: #### P OCGLUC #### [facility] [address] [address] [address] Nayely Ferrer Ambulatory Visit Summaryon 0 2- Ambulatory Visit Summary CASESHILO :1975 Visit Date:05/17/2022 Ambulatory Visit Instructions Your Diagnosis Bile reflux esophagitis Chronic GERD BMI 38.0-38.9,adult Your Care Team Attending Physician - WILMAN MCKEE, Khadar Reed Primary Care Physician - [...] Hypertriglyceridemia Hyperuricemia IBS (irritable bowel syndrome) Insulinoma Zedk-Mgcxp-Enalzlv disease Lumbar disc disease Migraines Normal [facility] Surgery Office/Clini c Noteon 05-17-2022 General [...] Hypertriglyceridemia Hyperuricemia IBS (irritable bowel syndrome) Insulinoma Zmmx-Aazbc-Vbreeop disease Lumbar disc disease Migraines Historical No [...] influenza virus vaccine, inactivated 02/15/2022 Recorded SARSCoV2 mRNA(nhtsdcczb-cplc-nbhhty) vac 11/29/2021 Recorded SARS-CoV-2 (COVID-19) mRNA BNT-162b2 vax 05/02/2021 Recorded 2022-04-19: TPV40 SARS-CoV-2 (COVID-19) mRNA BNT-162b2 vax 08/07/2020 Recorded 2022-04-19: TPV40 SARS-CoV-2 (COVID-19) mRNA BNT-162b2 vax 07/18/2020 Recorded 2022-04-19: TPV40 Normal [facility] Comment on above: Result Comment: Elec tronically Signed By: WILMAN MCKEE, Khadar Canchola\Date and Time Signed: 05/17/22 15:50 EST Pathology Noteon 05-10-2022 Pathology Note [id number]#1.00CD:127 Normal [facility] Operative Reporton Operative Report [id number]#1.00CD:127 Normal [facility] POINT OF CARE GLUCOSEon 04-21 Glucose [Mass/Vol] 153 mg/dL Critically high 74-106 T [facility] Comment on above: Performed By: #### P OCGLUC #### [facility] [address] [place] [address] Dr. Nayely Ferrer Lab Reportson 05-06-2022 Lab Reports [id number]#1.00CD:127 Normal [facility] Covid-19 PCR (CVDTBH)on 04-21 SARS-CoV-2 (COVID-19) RNA JOSIE+probe Ql (Unsp spec) Not detected Normal NOT DETECTED [facility] Comment on above: Result Comment: This test is not yet approved or cleared by the [place] FDA. When there are no FDA-approved or cleared tests available, and other criteria are met, FDA can make tests available under an emergency access mechanism called an Emergency Use Authorization (EUA). The EUA for this test is supported by the [employer] of Health and Human Service's (HHS's) declaration [...] consistent with SARS-CoV-2. Performed By: #### [facility] #### [facility] [address] [place] [address] Dr. Nayely Ferrer Consent for Procedure/Surger yon 04-23-2022 Consent for Procedure/Surgery [id number]#1.00CD:127 Normal [facility] Physician Referralon 022 Physician Referral [id number]#1.00CD:127 Normal [facility] Covid-19 PCR (CVDTBH)on 11-20 SARS-CoV-2 (COVID-19) RNA JOSIE+probe Ql (Unsp spec) Detected Critically abnormal NOT DETECTED [facility] Comment on above: Result Comment: This test is not yet approved or cleared by the [place] FDA. When there are no FDA-approved or cleared tests available, and other criteria are met, FDA can make tests available under an emergency access mechanism called an Emergency Use Authorization (EUA). The EUA for this test is supported by the [place] of Health and Human Service's (HHS's) declaration [...] used). Performed By: #### P OCGLUC #### [facility] [address] [address] [address] Nayely Ferrer Outside Colonoscopyon 2021 Outside Colonoscopy [id number]#1.00CD:127 Normal [facility] Reminderson 10-25-2021 Reminders - From: Beverley Rivzi LPN To: GSN - Clinical; Sent: 10/25/2021 10:31:26 EDT Show up: 09/25/2031 07:00:00 EDT Subject: colonoscopy recall Due Date/Time: 10/25/2031 07:00:00 EDT Reminder/Recall Patient is due for screening colonoscopy 10/25/2031. Normal [facility] POINT OF CARE GLUCOSEon 070 Glucose [Mass/Vol] 209 mg/dL Critically high 74-106 [facility] Comment on above: Performed By: #### P OCGLUC #### [facility] [id number] Nayely Ferrer Consent for Procedure/Surger yon 09-20-2021 Consent for Procedure/Surgery [id number]#1.00CD:127 Normal [facility] Facesheeton 09-19-2021 Facesheet [id number]#1.00CD:127 Normal [facility] RAD - CT Reporton 09-14-2021 RAD - CT Report [id number]#1.00CD:127 [facility] Historical Records Officeon 09-13-2021 Historical Records Office [id number]#1.00CD:127 [facility] Physician Referralon 022 Physician Referral [id number]#1.00CD:127 [facility] Vital Signs Date Time Vital Sign Value Performing Clinician Facility 06-01-2024 15:33-0500 Body height 177.8 cm Poli Xiong MD Work Phone: [facility] 06-01-2024 15:33-0500 Body mass index (BMI) [Ratio] 38.31 kg/m2 Poli Xiong MD Work Phone: [facility] 06-01-2024 15:33-0500 Body weight 121.11 kg Poli Xiong MD Work Phone: [facility] 02-27-2024 08:34-0500 Body height 177.8 cm Trey Rincon MD Work Phone: [facility] 02-27-2024 08:34-0500 Diastolic blood pressure 76 mm[Hg] Trey Rincon MD Work Phone: [facility] 02-27-2024 08:34-0500 Systolic blood pressure 128 mm[Hg] Trey Rincon MD Work Phone: [facility] 01-20-2024 15:05-0400 Body height 177.8 cm Trey Rincon MD Work Phone: [facility] 01-20-2024 15:05-0400 Diastolic blood pressure 82 mm[Hg] Trey Rincon MD Work Phone: [facility] 01-20-2024 15:05-0400 Systolic blood pressure 134 mm[Hg] Trey Rincon MD Work Phone: [facility] 10-14-2023 12:33-0400 Body height 177.8 cm Poli Xiong MD Work Phone: [facility] 10-14-2023 12:33-0400 Body mass index (BMI) [Ratio] 38.31 kg/m2 Poli Xiong MD Work Phone: [facility] 10-14-2023 12:33-0400 Body weight 121.11 kg Poli Xiong MD Work Phone: [facility] 10-14-2023 12:33-0400 Diastolic blood pressure 86 mm[Hg] Poli Xiong MD Work Phone: [facility] 10-14-2023 12:33-0400 Heart rate 83 /min Poli Xiong MD Work Phone: [facility] 10-14-2023 12:33-0400 Systolic blood pressure 136 mm[Hg] Poli Xiong MD Work Phone: [facility] 08-27-2023 16:39-0400 Body height 177.8 cm Radha ARCHULETA Work Phone: [facility] 08-27-2023 16:39-0400 Body mass index (BMI) [Ratio] 38.31 kg/m2 Radha ARCHULETA Work Phone: [facility] 08-27-2023 16:39-0400 Body weight 121.11 kg Radha ARCHULETA Work Phone: [facility] 08-27-2023 16:39-0400 Diastolic blood pressure 78 mm[Hg] Radha ARCHULETA Work Phone: [facility] 08-27-2023 16:39-0400 Heart rate 87 /min Radha ARCHULETA Work Phone: [facility] 08-27-2023 16:39-0400 Systolic blood pressure 121 mm[Hg] Radha ARCHULETA Work Phone: [facility] 04-19-2022 14:49-0500 Blood Pressure Location [facility] [place] 04-19-2022 14:49-0500 Diastolic blood pressure 94 mm[Hg] [facility]had[facility] [place] 04-19-2022 14:49-0500 Heart rate 70 /min Khadar N[facility] [place] 04-19-2022 14:49-0500 Respiratory rate 16 /min Khadar N[facility] [place] 04-19-2022 14:49-0500 Systolic blood pressure 124 mm[Hg] Khadar N[facility] [place] 09-18-2021 13:43-0400 Blood Pressure Location Khadar N[facility] [place] 09-18-2021 13:43-0400 Diastolic blood pressure 78 mm[Hg] Khadar N[facility] 09-18-2021 13:43-0400 Heart rate 76 /min Khadar NILL [facility] [place] 09-18-2021 13:43-0400 Respiratory rate 16 /min Khadar N[facility] [place] 09-18-2021 13:43-0400 Systolic blood pressure 126 mm[Hg] [facility] Encounters Encounter Date Encounter Type Care Provider Facility Start: 06-01-2024 End: 06-01-2024 Office outpatient visit 15 minutes Poli Xiong MD Work Phone: [facility] Comment on above: Kidney stone (Primar y Dx) Start: 06-01-2024 End: 06-01-2024 ambulatory [facility] Start: 02-27-2024 End: 02-27-2024 Bamboo flowspaulo Rincon MD Work Phone: [facility] Start: 02-27-2024 End: 02-27-2024 Bamboo mague Rincon MD Work Phone: [facility] Start: 02-27-2024 End: 02-27-2024 Office outpatient visit 15 minutes Trey Rincon MD Work Phone: [facility] Comment on above: Dizziness and giddin ess (Primary Dx); Mucous retention cyst of maxillary sinus Start: 02-27-2024 End: 02-27-2024 ambulatory TREY H TIMMIS Not Available Start: 01-23-2024 End: 02-03-2024 Telephone encounter Trey Rincon MD Work Phone: [facility] Start: 01-21-2024 End: 01-21-2024 ambulatory TREY H TIMMIS Not Available Start: 01-20-2024 End: 01-20-2024 Office outpatient visit 25 minutes Trey Rincon MD Work Phone: [facility] [facility] Comment on above: Dizziness and giddin ess (Primary Dx); Otalgia, bilateral; Chronic sinusitis, unspecified location; Bilateral impacted cerumen Start: 01-20-2024 End: 01-20-2024 ambulatory TREY H TIMMIS Not Available Start: 01-20-2024 End: 01-20-2024 Bamboo flowspaulo Rincon MD Work Phone: [facility] Start: 01-20-2024 End: 01-20-2024 Bamboo mague Rincon MD Work Phone: [facility] Start: 01-12-2024 End: 01-12-2024 ambulatory ALISON FREITAS [facility] Comment on above: Asymmetrical sensori neural hearing loss (Primary Dx); Eustachian tube dysfunction, bilateral Start: 01-12-2024 End: 01-12-2024 Bamboo flowsheet Alison Freitas CCC-A Work Phone: [facility] Start: 01-12-2024 End: 01-12-2024 Bamboo flowsheet Alison Freitas CCC-A Work Phone: [facility] Start: 11-24-2023 End: 11-24-2023 ambulatory TREY RINCON Not Available Start: 10-26-2023 End: 10-27-2023 Emergency department patient visit [facility] Start: 10-14-2023 End: 10-14-2023 Office outpatient visit 15 minutes Poli Xiong MD Work Phone: [facility] Comment on above: Kidney stone (Primar y Dx) Start: 10-14-2023 End: 10-14-2023 ambulatory POLI XIONG [facility] Start: 10-13-2023 End: 10-13-2023 Telephone encounter Padmini Carrasco LPN [facility] Start: 10-13-2023 End: 10-13-[address] [facility] Start: 09-08-2023 End: 09-08-2023 ambulatory [facility] Start: 08-27-2023 End: 08-27-2023 Office outpatient visit 25 minutes Radha ARCHULETA Work Phone: [facility] Comment on above: Kidney stone (Primar y Dx) Start: 08-27-2023 End: 08-27-2023 ambulatory [facility] Start: 08-23-2023 End: 08-24-2023 ambulatory GERMAN [facility] Start: 08-23-2023 End: 08-23-2023 Emergency department patient visit [facility] Start: 08-23-2023 End: 08-23-2023 Telephone encounter Dheeraj Garrison MD Work Phone: [facility] Start: 12-06-2022 End: 12-07-2022 ambulatory FER FELIZ [facility] Start: 07-08-2022 End: 07-09-[address] FER FELIZ . Facility: Start: 06-21-2022 End: 07-02-[address] FER FELIZ . Facility:[facility] Start: 06-17-2022 End: 06-20-2022 Evaluation and management of inpatient DR FER FELIZ . Facility:[facility] Start: 05-17-2022 End: 05-18-2022 ambulatory Khadar WALTER Facility:[facility] Start: 05-17-2022 End: 05-17-2022 Patient encounter procedure Khadar WALTER [facility] [place] Start: 05-10-2022 Encounter for preprocedural laboratory examination DR KHADAR WALTER . [facility] Start: 05-08-2022 End: 05-09-2022 ambulatory Khadar WALTER Facility:[id number] Start: 05-03-2022 End: 05-04-[address] KHADAR WALTER . Facility: Start: 05-03-2022 End: 05-04-2022 Encounter for preprocedural laboratory examination DR KHADAR WALTER . Facility: Start: 04-19-2022 End: 04-20-2022 ambulatory Fer Feliz PROVIDER Facility:[facility] Start: 04-19-2022 End: 04-19-2022 Patient encounter procedure Khadar Reed NILL [facility] [place] Start: 12-13-2021 End: 12-13-[address] FER FELIZ . Facility: Start: 10-24-2021 End: 10-25-2021 ambulatory Khadar WALTER Facility:[id number] Start: 10-20-[address] FER FELIZ . Facili ty: Start: 09-18-2021 End: 09-19-2021 ambulatory Fer Feliz PROVIDER Facility:[facility] Start: 09-18-2021 End: 09-18-2021 Patient encounter procedure Khadar Brianna WALTER General Surgery [facility] Start: 09-12-2021 ambulatory Khadar WALTER Facility:[facility] Start: 09-06-2021 ambulatory Fer Feliz PROVIDER Fa cility: [facility] Procedures Date Procedure Procedure Detail Performing Clinician Start: 06-01-2024 Follow-up visit Follow-up POLI XIONG Start: 01-12-2024 AUDITORY FUNCTION TESTS Alison Freitas [facility] Work Phone: Start: 10-14-2023 Urnls dip stick/tablet rgnt auto w/o microscopy Poli Xiong MD Work Phone: Start: 08-27-2023 Urnls dip stick/tablet rgnt auto w/o microscopy Radha ARCHULETA Work Phone: Start: 08-27-2023 Follow-up visit Follow-up RADHA AVITIA Start: 06-19-2022 Insertion of Infusion Device into Upper Vein, Percutaneous Approach DR FER FELIZ . Start: 05-08-2022 Esophagogastroduodenoscopy Khadar WALTER Start: 10-24-2021 Colonoscopy Khadar WALTER History of operative procedure on hip Khadar WALTER Plan of Treatment Date Care Activity Detail Author Start: 06-07-2025 End: 06-07-2025 Patient encounter procedure 06/07/2025 2:45 PM EST Office Visit [facility] [address] [place] [address] [facility] [address] Poli Xiong MD [address] [place] [address] [facility] Start: 06-01-2025 Adult BMI Screening Adult BMI Screen [facility] Start: 06-01-2025 Tobacco Screening Tobacco Screening [facility] Start: 06-01-2025 End: 06-01-2026 XR Abdomen AP X-ray abdomen ap 1 view Imaging Routine Kidney stone Expected: 06/01/2025, Expires: 06/01/2026 [facility] Work Phone: Comment on above: Expected: 06/01/2025 , Expires: 06/01/2026 Start: 10-13-2024 Adult BMI Screening Adult BMI Screen ing [facility] Start: 10-13-2024 Tobacco Screening Tobacco Screening [facility] Start: 08-26-2024 Adult BMI Screening Adult BMI Screen ing [facility] Start: 08-26-2024 Tobacco Screening Tobacco Screening [facility] Start: 08-22-2024 Adult BMI Screening Adult BMI Screen ing [facility] Start: 06-01-2024 End: 06-01-2024 Patient encounter procedure 06/01/2024 3:45 PM EST [facility] [address] [place] [address] [place] [address] Poli Xiong MD [address] [place] [address] [facility] Start: 05-25-2024 End: 08-26-2024 XR Abdomen AP X-ray abdomen ap 1 view Imaging Routine Kidney stone Expected: 05/25/2024, Expires: 08/26/2024 [facility] Comment on above: Expected: 05/25/2024 , Expires: 08/26/2024 Start: 02-27-2024 End: 02-27-2024 Patient encounter procedure 02/27/2024 9:00 AM EST Office Visit [facility] [address] [facility] [address] [place] [address] Trey Rincon MD [address] [place] [address] [address] [place] [address] Arrived [facility] [place] Comment on above: Arrived Start: 01-20-2024 End: 01-20-2024 Patient encounter procedure [facility] Comment on above: Arrived Start: 01-12-2024 End: 01-12-2024 Clinical Support 01/12/2024 2:45 PM EDT Clinical Support [facility] [address] [place] [address] Alison Freitas, [facility] [address] [place] [address] Arrived [facility] Comment on above: Arrived Start: 12-21-2023 COVID-19 Vaccine ( season) COVID-19 Vaccine ( season) [facility] Start: 12-21-2023 Influenza vaccination [facility] Start: 10-14-2023 End: 10-14-2023 Patient encounter procedure 10/14/2023 12:30 PM EDT Office Visit [facility] [address] [place] [address] [place] [address] Poli Xiong MD [address] [place] [address] [facility] Start: 01-31-1996 DTaP,Tdap and Td Vaccines (1 - Tdap) DTaP,Tdap and Td Vaccines (1 - Tdap) [facility] Start: 1995 Adult BMI Follow Up Plan Adult BMI Follow Up Plan [facility] Start: 1989 Depression Screening Depression Scre ening [facility] Start: 1989 Tobacco Screening Tobacco Screening [facility] Start: 1977 Screening for malign ant neoplasm of colon [facility] End: 08-26-2024 Microscopic, urine Microscopic, urine Lab Routine Kidney stone PRN for 1 Occurrences starting 08/27/2023 until 08/26/2024 [facility] Work Phone: Comment on above: PRN for 1 Occurrence s starting 08/27/2023 until 08/26/2024 Immunizations Immunization Date Immunization Notes Care Provider Fa cili 02-15-2022 influenza virus vaccine, unspecified formulation [facility] 11-29-2021 SARS-CoV-2 mRNA (lfnkxskicrr-xevg-zkbla se) vaccine [facility] 05-02-2021 SARS-CoV-2 (COVID-19 ) mRNA BNT-162b2 vax Vitals ([email or web address]) [facility] Comment on above: Result Comment: 2021: [id number] 08-07-2020 SARS-CoV-2 (COVID-19 ) mRNA BNT-162b2 vax Vitals ([email or web address]) [facility] Comment on above: Result Comment: 2021: [email or web address] 07-18-2020 SARS-CoV-2 (COVID-19 ) mRNA BNT-162b2 vax Vitals ([email or web address].com) [facility] Comment on above: Result Comment: 2021: [email or web address] Payers Date Payer Category Payer Private Health Insurance [employer] [id number] 2019 Commercial Managed [facility] [employer] Member Subscriber Plan / Payer (Effective 2019-Present) Name: Shilo Vegas Relation to Subscriber: Self Name: Shilo Vegas Payer ID: Not on file Type: Not on file Address: [place] [id number] 2019 Unknown [id number] 1977 Unknown [id number] 2.16.840.1.077440.3.579.2. 727 1977 Unknown [id number] 2.16.840.1.745452.3.579.2. 727 1977 Unknown [id number] 2.16.840.1.726679.3.579.2. 727 1977 Unknown [id number] 2.16.840.1.765730.3.579.2. 727 1977 Unknown [id number] 2.16.840.1.552815.3.579.2. 727 1977 Unknown [id number] 2.16.840.1.306886.3.579.2. 727 1977 Unknown [id number] 2.16.840.1.543596.3.579.2. 593 1977 Unknown [id number] 2.16.840.1.487504.3.579.2. 593 1977 Unknown [id number] 2.16.840.1.314027.3.579.2. 593 1977 Unknown [id number] 2.16.840.1.271671.3.579.2. 593 1977 Unknown [id number] 2.16.840.1.063044.3.579.2. 593 1977 Unknown [id number] 2.16.840.1.835494.3.579.2. 593 1977 Unknown [id number] 2.16.840.1.478254.3.579.2. 593 1977 Unknown [id number] 2.16.840.1.902796.3.579.2. 593 1977 Unknown [id number] 2.16.840.1.129210.3.579.2. 173 1977 Unknown [id number] 2.16.840.1.371809.3.579.2. 1286 1977 Unknown [id number] 2.16.840.1.060374.3.579.2. 1286 1977 Unknown [id number] 2.16.840.1.324486.3.579.2. 6 1977 Unknown [id number] 2.16.840.1.406815.3.579.2. 6 1977 Unknown [id number] 2.16.840.1.326944.3.579.2. 9 1977 Unknown [id number] 2.16.840.1.696943.3.579.2. 1259 1977 Unknown [id number] 2.16.840.1.144889.3.579.2. 1259 1977 Unknown [id number] 2.16.840.1.995800.3.579.2. 1259 1977 Unknown [id number] 2.16.840.1.632077.3.579.2. 1259 1977 Unknown [id number] 2.16.840.1.014556.3.579.2. 1286 1977 Unknown [id number] 2.16.840.1.040951.3.579.2. 6 1977 Unknown [id number] 2.16.840.1.833166.3.579.2. 1286 1977 Unknown [id number] 2.16.840.1.035879.3.579.2. 1286 1977 Unknown [id number] 2.16.840.1.555481.3.579.2. 1286 1977 Unknown [id number] 2.16.840.1.793479.3.579.2. 1286 1959 Unknown [id number] Social History Date Type Detail Facility Start: 09-18-2021 End: 08-27-2023 Tobacco smoking status Never smoked tobacco (finding) [facility] Tobacco smoking status Never [facility] [place] Start: 10-14-2023 End: 11-24-2023 Sex Assigned At Male [facility] Start: 08-27-2023 End: 11-19-2023 Tobacco use and exposure Smokeless tobacco non-user [facility] Start: 10-14-2023 End: 11-24-2023 Alcoholic beverage intake Current drinker of alcohol (finding) [facility] Start: 10-14-2023 End: 11-24-2023 History of Social function [facility] Start: 1975 Sex assigned at Not on file P [facility] Start: 06-12-2021 Alcohol Comment socially [facility] Start: 11-22-2014 Sex Male (finding) [facility] Functional Status Date Assessment Result Facility 04-19-2022 Functional Status N/A [facility] Clinical Notes 09-18-2021 to 06-01-2024 Poli Xiong MD - 06/01/2024 2:20 PM Kris Rincon MD - 02/27/2024 9:00 AM ESTTelephone Korey - Dari Rincon - 02/03/2024 8:49 AM Delaney Rincon MD - 01/20/2024 3:20 PM EDT Note Date & Type Note Facility 06-01-2024 History of Presen t illness Narrative Images from the original note were not included. [address] [place] [address] [facility] [address] Patient: Shilo Carpio Case Date of : 1975 Encounter Date: 06/01/2024 History of Present Illness: The patient is a 49 y.o. male, an established patient, and is here for followup. The patient had a history of having a kidney stone with extraordinary urinary frequency. It was not visible on follow-up KUB and I believe he would pass this. He has had no recurrence of that. Continues to have ongoing issues with significant constipation. Has been seen by his primary care physician and uses Linzess as needed. That continues to be an issue for him however. He had a KUB done October 2023 showing no obvious stone but had a follow-up CT scan for unrelated reasons the next month which did demonstrate a left lower pole nonobstructing stone which was small.. Summary of old records: Urinalysis today: No results for input(s): EXTPOCURCO , EXTPOCURCH , EXTPOCAPP , EXTPOCURBS , EXTPOCURBIL , EXTPOCUKET , EXTPOCUSPG , EXTPOCUHGB , EXTPOCUPRO , EXTPOCUURO , EXTPOCULEU , EXTPOCUNIT , EXTPOCUWBC , EXTPOCUBLD , EXTPOCURBC , EXTPOCUCRY , EXTPOCUBAC , EXTPOCUTREP , EXTPOCUPH in the last 72 hours. Last BUN and creatinine: No results found for: BUN Lab Results Component Value Date CREATININE 1.0 08/23/2023 Last PSA: No results found for: PSA No results found for: PROSTATICSP Additional Lab/Culture results: None Imaging Reviewed during this Office Visit: None (Results were independently reviewed by physician and radiology report verified) Past Medical, Family, and Social History Update: The following portions of the patient's history were reviewed and updated as appropriate: allergies, current medications, past family history, past medical history, past social history, past surgical history and problem list. Past Medical History: Diagnosis Date Constipation COVID-19 Diabetes ([facility]) Past Surgical History: Procedure Laterality Date LEG SURGERY Family History Problem Relation Age of Onset Diabetes Father Diabetes Mother Hypertension Mother Other Mother breathing problems Current Outpatient Medications Medication Sig Dispense Refill glimepiride (AmaryL) 1 mg tablet Take 1 tablet (1 mg total) by mouth every morning before breakfast. LINZESS 145 mcg capsule Take 1 capsule (145 mcg total) by mouth in the morning. (Patient not taking: Reported on 10/26/2023) metFORMIN (GLUCOPHAGE) 500 mg tablet Take 1 tablet (500 mg total) by mouth in the morning and 1 tablet (500 mg total) before bedtime. (Patient not taking: Reported on 10/26/2023) polyethylene glycol (GLYCOLAX) 17 gram/dose powder Take 17 g by mouth in the morning. 527 g 0 tamsulosin (FLOMAX) 0.4 mg capsule Take 1 capsule (0.4 mg total) by mouth in the morning. (Patient not taking: Reported on 10/26/2023) 14 capsule 0 No current facility-administered medications for this visit. (All medications reviewed and updated by provider since last office visit or hospitalization) Allergies: Penicillins Tobacco History: Social History Tobacco Use Smoking Status Never Smokeless Tobacco Never (If patient a smoker, smoking cessation counseling offered) Social History: Social History Substance and Sexual Activity Alcohol Use Yes Comment: socially Review of Systems: General: Negative for chills and fever. Cardiovascular: Negative for chest pain and shortness of breath. Gastrointestinal: Negative for constipation, diarrhea, nausea, and vomitting. Physical Exam: There were no vitals taken for this visit. Assessment and Plan: There are no diagnoses linked to this encounter. Problem List None Follow-up: [facility] This note was created with the assistance of a speech recognition program. While intending to generate a timely document that accurately reflects the content of the visit, no guarantee can be provided that every grammatical or spelling mistake has been or will be identified or corrected. Thank you for your understanding. documented in this encounter [facility] 02-27-2024 History of Presen t illness Narrative Subjective Patient ID: Shilo Carpio Case is a 49 y.o. male who presents for Sinusitis ([facility] 02/13/24) Pt presents after getting CT [...] frequency 06/12/2021 Acne 11/19/2023 Hyponatremia 11/19/2023 Sepsis ([facility]) 11/19/2023 COVID-19 11/19/2023 Hyperuricemia 11/19/2023 Insulinoma 11/19/2023 Acute nontraumatic kidney injury ([facility]) 11/19/2023 Sinus tachycardia 11/19/2023 GERD (gastroesophageal reflux disease) 11/19/2023 Overweight 11/19/2023 Lumbar disc disease 11/19/2023 Constipation 11/19/2023 Balanitis 11/19/2023 Acute cystitis without hematuria 11/19/2023 Acute sinusitis 11/19/2023 IBS (irritable bowel syndrome) 11/19/2023 Diverticulitis 11/19/2023 Hypertriglyceridemia ([facility]) 11/19/2023 Borderline diabetes mellitus 11/19/2023 Glaucoma ([facility]) 11/19/2023 Migraine headache ([facility]) 11/19/2023 Gynecomastia 11/19/2023 Fdyq-Fabzy-Nsvbndp disease 11/19/2023 Resolved Ambulatory Problems Diagnosis Date [...] No tx needed documented in this encounter [facility] 02-03-2024 Telephone encounter Note Called pt to schedule follow up appt/he said his PCP is ordering a CT. PT will call back to schedule once he knows when the CT will be. [facility] 02-03-2024 Miscellaneous Notes Called pt to schedule follow up appt/he said his PCP is ordering a CT. PT will call back to schedule once he knows when the CT will be. Pt needs F/U appt to review xray results documented in this encounter [facility] 01-23-2024 Telephone encounter Note Pt needs F/U appt to review xray results [facility] 01-20-2024 History of Presen t illness Narrative Subjective Patient ID: Shilo Carpio Case is a 48 y.o. male who [...] frequency 06/12/2021 Acne 11/19/2023 Hyponatremia 11/19/2023 Sepsis ([facility]) 11/19/2023 COVID-19 11/19/2023 Hyperuricemia 11/19/2023 Insulinoma 11/19/2023 Acute nontraumatic kidney injury (CMS/HCC) 11/19/2023 Sinus tachycardia 11/19/2023 GERD (gastroesophageal reflux disease) 11/19/2023 Overweight 11/19/2023 Lumbar disc disease 11/19/2023 Constipation 11/19/2023 Balanitis 11/19/2023 Acute cystitis without hematuria 11/19/2023 Acute sinusitis 11/19/2023 IBS (irritable bowel syndrome) 11/19/2023 Diverticulitis 11/19/2023 Hypertriglyceridemia (CMS/HCC) 11/19/2023 Borderline diabetes mellitus 11/19/2023 Glaucoma ([facility]) 11/19/2023 Migraine headache ([facility]) 11/19/2023 Gynecomastia 11/19/2023 Yaqt-Qhyty-Ulpmera disease 11/19/2023 Resolved Ambulatory Problems Diagnosis Date [...] cerumen Ears debrided documented in this encounter [facility] 01-12-2024 History of Presen t illness Narrative History: Pt was referred to ENT because of ETD. Pt had bilateral ear infection in September that did not clear for several months. He initially saw his family physician and recently saw Dr. Rincon. Pt does not notice decreased hearing. He does have some periodic pain in the ear and his jaw when he lays down. He also reports periodic tinnitus both ears. Otoscopic Exam: Cerumen AU Pure Tone Audiometry Right Ear: Mild sensorineural hearing loss above 3K Hz Left Ear: Mild sensorineural hearing loss at 6K Hz only Speech Audiometry Right SRT = 10 dB and word discrimination score at 50 dBHL = 100% Left SRT = 5 dB and word discrimination score at 50 dBHL = 100% Tympanometry Right Ear: Type A tympanogram Left Ear: Type A tympanogram documented in this encounter [facility] 10-14-2023 History of Presen t illness Narrative Images from the original note were not included. [address] [place] [address] [address] [facility] [address] Patient: Shilo Carpio Case Date of : 1975 Encounter Date: 10/14/2023 History of Present Illness: Chief Complaint: Follow up The patient is a 48 y.o. male, an established patient, and is here for follow-up. He had recently seen our PA August 27, 2023 when he had presented the ER and found to have a 6 mm proximal ureteral calculus. He reports that he would passed it. Had been doing well until about 2 weeks ago and developed lower back pain along with extraordinary urinary frequency and some pain radiating into his testicle. He saw his primary care physician. Was given antibiotics. Symptoms persisted after a week and he returned. At that point was found to have only micro hematuria without pyuria. He had been given Flomax at that time. Underwent KUB yesterday which I reviewed showing no obvious stones. Patient's symptoms are improving.. Summary of old records: Urinalysis today: Recent Labs 10/14/23 1242 EXTPOCURBS Negative EXTPOCURBIL Negative EXTPOCUKET Negative EXTPOCUSPG 1.030 EXTPOCUPRO Negative EXTPOCUURO 0.2 EXTPOCUNIT Negative EXTPOCUBLD Negative EXTPOCUPH 6.0 EXTPOCULEE Negative Last BUN and creatinine: No results found for: BUN Lab Results Component Value Date CREATININE 1.0 08/23/2023 Last PSA: No results found for: PSA No results found for: PROSTATICSP Additional Lab/Culture results: None Imaging Reviewed during this Office Visit: None (Results were independently reviewed by physician and radiology report verified) Past Medical, Family, and Social History Update: The following portions of the patient's history were reviewed and updated as appropriate: allergies, current medications, past family history, past medical history, past social history, past surgical history and problem list. Past Medical History: Diagnosis Date Constipation COVID-19 Diabetes ([facility]) Past Surgical History: Procedure Laterality Date LEG SURGERY Family History Problem Relation Age of Onset Diabetes Father Diabetes Mother Hypertension Mother Other Mother breathing problems Current Outpatient Medications Medication Sig Dispense Refill glimepiride (AmaryL) 1 mg tablet Take 1 tablet (1 mg total) by mouth every morning before breakfast. LINZESS 145 mcg capsule Take 1 capsule (145 mcg total) by mouth in the morning. metFORMIN (GLUCOPHAGE) 500 mg tablet Take 1 tablet (500 mg total) by mouth in the morning and 1 tablet (500 mg total) before bedtime. tamsulosin (FLOMAX) 0.4 mg capsule Take 1 capsule (0.4 mg total) by mouth in the morning. 14 capsule 0 No current facility-administered medications for this visit. (All medications reviewed and updated by provider since last office visit or hospitalization) Allergies: Penicillins Tobacco History: Social History Tobacco Use Smoking Status Never Smokeless Tobacco Never (If patient a smoker, smoking cessation counseling offered) Social History: Social History Substance and Sexual Activity Alcohol Use Yes Comment: socially Review of Systems: General: Negative for chills and fever. Cardiovascular: Negative for chest pain and shortness of breath. Gastrointestinal: Negative for constipation, diarrhea, nausea, and vomitting. -per HPI Physical Exam: BP 136/86 Pulse 83 Ht 177.8 cm (5' 10 ) Wt 121.1 kg (267 lb) BMI 38.31 kg/m Assessment and Plan: Shilo was seen today for follow-up. Diagnoses and all orders for this visit: Kidney stone - POCT Urinalysis Auto, W/O Microscopy Problem List Genitourinary Kidney stone - Primary Overview 08/27/23: CT 08/23/2023 showed a 6 mm stone in the proximal left ureter and a punctate nonobstructing stone in the left kidney. He passed the ureteral stone today and feels fine. He will drop off a follow-up UA in a couple of weeks. Reviewed basic dietary guidelines for stone prevention 10/14/23: Patient recently had extraordinary urinary frequency along with low back pain. I strongly suspect he had passed only a piece of his prior stone and a residual fragment was within the ureter just inside the UVJ causing the combination of symptoms he experienced. Those symptoms are now improving. Urine today is negative. KUB negative. Plan follow-up as scheduled unless symptoms recur Relevant Orders POCT Urinalysis Auto, W/O Microscopy (Completed) Follow-up: Poli Xiong MD This note was created with the assistance of a speech recognition program. While intending to generate a timely document that accurately reflects the content of the visit, no guarantee can be provided that every grammatical or spelling mistake has been or will be identified or corrected. Thank you for your understanding. documented in this encounter [facility] 10-13-2023 Miscellaneous Notes This nurse called the Pt. To remind him to get his KUB done for his appointment with MD Freddy. Pt. Stated that he would go get that done today. No further questions at this time. documented in this encounter [facility] 10-13-2023 Telephone encounter Note This nurse called the Pt. To remind him to get his KUB done for his appointment with MD Freddy. Pt. Stated that he would go get that done today. No further questions at this time. [facility] 08-27-2023 Evaluation + Plan note Associated Problem(s): Kidney stone In 9 months with a KUB. He will call sooner if any problems. [facility] 08-27-2023 Miscellaneous Notes Associated Problem(s): Kidney stone In 9 months with a KUB. He will call sooner if any problems. documented in this encounter [facility] 08-27-2023 History of Presen t illness Narrative Images from the original note were not included. [address] [place] [address] [address] [facility] [address] Patient: Shilo Carpio Case Date of : 1975 Encounter Date: 08/27/2023 History of Present Illness: Chief Complaint: Follow up The patient is a 48 y.o. male, an established patient, and is here for ER follow-up. He has a history of lower urinary tract symptoms and was last seen by Dr. Xiong 08/07/2021. He went to the ER on 08/23/23 with left flank pain. WBC count was normal at 10.1. Creatinine normal at 1.0. UA showed large blood, trace leukocytes. Culture was negative. Report from CT without contrast states that there was a 6 mm stone in the proximal left ureter resulting in mild left hydronephrosis. There was also mention of a small stone in the left kidney. There were several incidental findings including cholelithiasis and deformity of the right femoral head. I handed him a copy of the report. He will review these findings with his PCP. On personal review of the films, I agree with the read. He saw the stone pass earlier today but was not able to catch it. He is feeling fine. This was his 1st stone. He reports that he did have a Urinary tract infection last year he was taking Jardiance. Urinalysis today: Recent Labs 08/27/23 1641 EXTPOCURBS Negative EXTPOCURBIL Negative EXTPOCUKET Negative EXTPOCUSPG 1.025 EXTPOCUPRO Negative EXTPOCUURO 0.2 EXTPOCUNIT Negative EXTPOCUBLD Trace EXTPOCUPH 6.0 EXTPOCULEE Negative Last BUN and creatinine: No results found for: BUN Lab Results Component Value Date CREATININE 1.0 08/23/2023 Past Medical, Family, and Social History Update: The following portions of the patient's history were reviewed and updated as appropriate: allergies, current medications, past family history, past medical history, past social history, past surgical history and problem list. Past Medical History: Diagnosis Date Constipation COVID-19 Diabetes ([facility]) Past Surgical History: Procedure Laterality Date LEG SURGERY Family History Problem Relation Age of Onset Diabetes Father Diabetes Mother Hypertension Mother Other Mother breathing problems Current Outpatient Medications Medication Sig Dispense Refill glimepiride (AmaryL) 1 mg tablet Take 1 tablet (1 mg total) by mouth every morning before breakfast. LINZESS 145 mcg capsule Take 1 capsule (145 mcg total) by mouth in the morning. metFORMIN (GLUCOPHAGE) 500 mg tablet Take 1 tablet (500 mg total) by mouth in the morning and 1 tablet (500 mg total) before bedtime. sulfamethoxazole-trimethoprim (BACTRIM DS) 800-160 mg per tablet Take 1 tablet by mouth in the morning and 1 tablet before bedtime. Do all this for 7 days. 14 tablet 0 tamsulosin (FLOMAX) 0.4 mg capsule Take 1 capsule (0.4 mg total) by mouth in the morning. 14 capsule 0 No current facility-administered medications for this visit. (All medications reviewed and updated by provider since last office visit or hospitalization) Allergies: Penicillins Tobacco History: Social History Tobacco Use Smoking Status Never Smokeless Tobacco Never (If patient a smoker, smoking cessation counseling offered) Social History: Social History Substance and Sexual Activity Alcohol Use Yes Comment: socially Review of Systems: General: Negative for chills and fever. Cardiovascular: Negative for chest pain and shortness of breath. Gastrointestinal: Negative for constipation, diarrhea, nausea, and vomitting. -per HPI Physical Exam: BP 121/78 (BP Site: Left Arm, BP Postition: Sitting) Pulse 87 Ht 177.8 cm (5' 10 ) Wt 121.1 kg (267 lb) BMI 38.31 kg/m Constitutional: He appears well-developed. No distress. Pulmonary/Chest: Effort normal. No respiratory distress. Neurological: He is alert and oriented for age. Gait normal. Nursing note and vitals reviewed. Assessment and Plan: Shilo was seen today for follow-up. Diagnoses and all orders for this visit: Kidney stone - [facility] - REYNA Mcmillan - POCT Urinalysis Auto, W/O Microscopy - Microscopic, urine; Standing - X-ray abdomen ap 1 view; Future Problem List Genitourinary Kidney stone - Primary Overview 08/27/23: CT 08/23/2023 showed a 6 mm stone in the proximal left ureter and a punctate nonobstructing stone in the left kidney. He passed the ureteral stone today and feels fine. He will drop off a follow-up UA in a couple of weeks. Reviewed basic dietary guidelines for stone prevention Current Assessment & Plan In 9 months with a KUB. He will call sooner if any problems. Relevant Orders POCT Urinalysis Auto, W/O Microscopy (Completed) Microscopic, urine X-ray abdomen ap 1 view KATHE LAKHANI This note was created with the assistance of a speech recognition program. While intending to generate a timely document that accurately reflects the content of the visit, no guarantee can be provided that every grammatical or spelling mistake has been or will be identified or corrected. Thank you for your understanding. KATHE Lakhani 08/27/23 1713 documented in this encounter [employer] 08-27-2023 Instructions KATHE Lakhani - 08/27/2023 4:15 PM EDT Make sure your urine clears up, please stop at the lab in the next few weeks to leave another urine specimen. The order is in the system. Please go to [facility]. I will call you with the results. Your CT showed you also have stones in the gallbladder. Next time you see your family doctor, please bring the report and address this with them. It sounds like you pass the stone. The CT says that you have 1 tiny stone remaining in the left kidney. That has about a 50% chance of moving in the next 5 years. It is much smaller than the stone you just passed. Please see the attached information regarding kidney stone diet. We will check on the remaining stone with an x-ray in 9 months. Call sooner if any problems. If you get another urinary tract infection, it may be worth having you go forward with a cystoscopy. This allows the doctor to assess the urethra and the bladder. The following attachments cannot be sent through Care Everywhere.Kidney Stone Diet (Yemeni)documented [facility] encounter [facility] Miscellaneous Notes Contact patient and make appointment for him 1st available provider. I returned [facility] call 7:23 p.m. on 08/23/[address] Selwyn Clark [facility] emergency department. He identified patient is 48-year-old male with mildly obstructing 6 mm ureteral stone afebrile vital stable pain controlled completely. Trace leukocyte on urinalysis otherwise completely negative with unremarkable CBC and creatinine 1.0. They plan discharge with Flomax, Toradol, and urine strainer. They are also starting oral antibiotic, and I recommended checking urine culture. We agreed mutually patient does not require admission. I advised he needs to return immediately for fever or refractory pain. documented in this encounter [facility] 08-23-2023 Telephone encounter Note Contact patient and make appointment for him 1st available provider. I returned [facility] call 7:23 p.m. on 08/23/[address] Selwyn Clark [facility] emergency department. He identified patient is 48-year-old male with mildly obstructing 6 mm ureteral stone afebrile vital stable pain controlled completely. Trace leukocyte on urinalysis otherwise completely negative with unremarkable CBC and creatinine 1.0. They plan discharge with Flomax, Toradol, and urine strainer. They are also starting oral antibiotic, and I recommended checking urine culture. We agreed mutually patient does not require admission. I advised he needs to return immediately for fever or refractory pain. [facility]: 05-08-[facility]22 Note OPERATIVE NOTE OPERATION DATE: 05/08/2022 [...] good condition. CC: Patient's family doctor. [facility] 04-20-2022 Note Chief Complaint consultation for GERD [...] Hypertriglyceridemia Hyperuricemia IBS (irritable bowel syndrome) Insulinoma Mglz-Ctuts-Hjvzjia disease Lumbar disc disease Migraines Historical No [...] and Father. Hyper (more content not included)... [facility] Comment on above: Result Comment: Elec tronically Signed By: WILMAN MCKEE, Khadar Canchola\Date and Time Signed: 04/20/22 [...] screening should be in 10 years. : [facility] Signed and Approved by: DR KHADAR WALTER . 10/29/2021 17:17:00 [facility] 09-18-2021 Note Chief Complaint consultation for [...] Hypertriglyceridemia Hyperuricemia IBS (irritable bowel syndrome) Insulinoma Gtel-Qdzen-Zebsjoh disease Migraines Historical No qualifying data Procedure/Surgical [...] Father. Hypertension: Mother and Father. Stroke: Mother. [facility] Comment on above: Result Comment: Elec tronically Signed By: WILMAN MCKEE, Khadar Canchola\Date and Time Signed: 09/18/21 17:37 EDT Evaluation + Plan note No data available for this section General [facility] [place] Evaluation note Diagnosis Dizziness and giddiness- Primary Otalgia, bilateral Chronic sinusitis, unspecified location Bilateral impacted cerumen Impacted cerumen [facility] Diagnosis Dizziness and giddiness- Primary Mucous retention cyst of maxillary sinus [facility] Diagnosis Asymmetrical sensorineural hearing loss- Primary Sensorineural hearing loss, asymmetrical Eustachian tube dysfunction, bilateral [facility]* Diagnosis Kidney stone- Primary Calculus of kidney [facility] Diagnosis Kidney stone- Primary Calculus of kidney Kidney stone- Primary Calculus of kidney [facility] Diagnosis Kidney stone- Primary Calculus of kidney [facility] No data available for this section [facility] [place] InstructionsNot on filedocumented in this encounter [facility] filedocumented in this encounter [facility] on filedocumented in this encounter [facility] on filedocumented in this encounter [facility] No data available for this section [facility] [place] Summary Purpose Family History No Family History [...] team informatio n (unrecognized section and content) Patient Services Coordinator Relationship Specialty Start Date End Date Fer Feliz MD [address] [place] [address] PCP - General Family Medicine 11/14/23 Patient Services Coordinator Relationship Specialty Start Date End Date Fer Feliz MD [address] [facility] [place] [address] PCP - General Family Medicine 11/14/23 Patient Services Coordinator Relationship Specialty Start Date End Date Fer Feliz MD [address] [facility] [place] [address] PCP - General Family Medicine 11/14/23 Patient Services Coordinator Relationship Specialty Start Date End Date Fer Feliz MD [address] [facility] [place] [address] PCP - General Family Medicine 11/14/23 Patient Services Coordinator Relationship Specialty Start Date End Date Fer Feliz MD [address] [place] [address] PCP - General Family Medicine 11/14/23 Patient Services Coordinator Relationship Specialty Start Date End Date Fer Feliz MD [address] [place] [address] PCP - General Family Medicine 11/14/23 Patient Services Coordinator Relationship Specialty Start Date End Date Fer Feliz MD [address] [place] [facility] [address] PCP - General Family Medicine 06/12/21 Patient Services Coordinator Relationship Specialty Start Date End Date Fer Feliz MD [address] [place] [facility] [place] [address] PCP - General Family Medicine 06/12/21 Patient Services Coordinator Relationship Specialty Start Date End Date Fer Feliz MD PCP - General Family Medicine 10/26/23 Patient Services Coordinator Relationship Specialty Start Date End Date Fer Feliz MD [address] [place] [address] PCP - General Family Medicine 06/12/21 Patient Services Coordinator Relationship Specialty Start Date End Date Fer Feliz MD [address] [place] [address] PCP - General Family Medicine 06/12/21 (unrecognized sect ion and content) No Status Records FoundNo Status Records FoundNo Status Records FoundNo Status Records FoundNo Status Records FoundNo Status Records FoundNo Status Records Found INFORMATION SOURCE (unrecogn ized section and content) DATE CREATED AUTHOR 05/23/2022 [facility] DATE CREATED AUTHOR AUTHOR'S ORGANIZ ATION 07/14/2022 [facility] DATE CREATED AUTHOR AUTHOR'S ORGANIZ ATION 12/08/2022 [facility] DATE CREATED AUTHOR AUTHOR'S ORGANIZ ATION 10/27/2023 [facility] DATE CREATED AUTHOR AUTHOR'S ORGANIZ ATION 02/29/2024 [facility] DATE CREATED AUTHOR AUTHOR'S ORGANIZ ATION 06/03/2024 [facility] DATE CREATED AUTHOR AUTHOR'S ORGANIZ ATION 06/03/2024 [facility] Reason for Visit (unrecogniz ed section and content) Reason Comments Ear Problem Follow up audio 01/[address] [facility] 02/13/24 Reason Comments Follow-up 6 MM STONE Specialty Diagnoses / Procedures Referred By Nasreen dove Referred To Contact Urology Diagnoses Kidney stone German Samano, DO [address] [place] [address] [facility] [address] [place] [address] Referral ID Status Reason Start Date Expiration Date Visits Requested Visits Authorized [id number] Pending Review Specialty Services Required 08/23/2023 08/22/2024 1 1 Reason Comments Follow-up Reason Comments Follow-up kidney infection f/u FOR RECORDS PERTAINING TO PATIENTS WHO ARE [...] BE BASED ON THE PRIMARY CLINICAL RECORDS. [facility] [employer] provides no warranty or guarantee of the accuracy or completeness of information in this document.
--- OUTSIDE RECORDS SUMMARY | 2024-12-04 06:41 | XMS_ITS | Clinical Summary ---
Author Organization [facility] Address [address] [place] [address] Care Team Providers Care Marketing Proposal Specialist Name Role Phone Unavailable Primary Care Provider Unavailabl e Social History Tobacco Use Types Packs/Day Years Used Date Smoking Tobacco: Never Assessed Sex and Gender Information Value Date Recorded Sex Assigned at Not on file Legal Sex Male 10:37 PM EDT Gender Identity Not on file Sexual Orientation Not on file Plan of Treatment Not on file
--- OUTSIDE RECORDS SUMMARY | 2024-12-04 06:42 | XMS_ITS | Clinical Summary ---
Author Organization [employer] Address [id number] [address] [place] [address] Care Team Providers Care Timber Bucker Name Role Phone Stanley Feliz MD Primary Care Provider [phone] Allergies Active Allergy Reactions Criticality Noted Date Comments Penicillins 06/12/2021 Medications glimepiride (AmaryL) 1 mg tablet Take 1 tablet (1 mg total) by mouth every morning before breakfast. 11/08/2022 Active polyethylene glycol (GLYCOLAX) 17 gram/dose powder Take 17 g by mouth in the morning. 527 g 10/26/2023 Active Active Problems Problem Noted Date Diagnosed Date Kidney stone 08/27/2023 Overview (06/01/2024): 08/27/23: CT 08/23/2023 showed a 6 mm [...] Plan follow-up as scheduled unless symptoms recur 06/01/2024: Has a known left lower pole nonobstructing stone on CT which is small. Currently asymptomatic. Plan to recheck a KUB in 1 year Assessment & Plan (08/27/2023 5:12 PM EDT): In 9 months with a KUB. He will call sooner if any problems. Urinary frequency 06/12/2021 Overview (08/07/2021): 06/12/21: Lower urinary tract symptoms. Multifactorial however given his constipation this is a strong contributor. He already has eliminated caffeine. Plan for him to continue to address the constipation with reassessment here in about 6-8 weeks to recheck his PVR. Will check a PSA at that time given his family history of prostate cancer. Additionally recommended tighter glycemic control which will contribute to some of the urinary frequency. 08/07/21: Improved with correction of constipation. PVR minimal. PSA normal. He is reintroduced caffeine into his diet without substantial change in symptoms. Can followup prn Prostate cancer screening 06/12/2021 Family History Medical History Relation Name Comments Diabetes Father Diabetes Mother Hypertension Mother Other Mother breathing probl ems Relation Name Status Comments Father Alive Mother Alive Social History Tobacco Use Types Packs/Day Years Used Date Smoking Tobacco: Never Smokeless Tobacco: Never Tobacco Cessation:Counseling Given: Not Answered Alcohol Use Standard Drinks/Week Comments Yes 0 (1 standard drink = 0.6 oz pur e alcohol) socially Childcare Answer Date Recorded Childcare Unknown 09/28/2018 Employment Answer Date Recorded Employment Unknown 09/28/2018 Hunger Screening Answer Date Recorded Within the past 12 months we worried whether our food would run out before we got money to buy more. Never True 06/01/2024 Within the past 12 months th e food we bought just didn't last and we didn't have money to get more. Never True 06/01/2024 Sex and Gender Information Value Date Recorded Sex Assigned at Not on file Legal Sex Male 11:57 AM EDT Gender Identity Not on file Sexual Orientation Not on file Last Filed Vital Signs Vital Sign Reading Time Taken Comments Blood Pressure 146/92 10/26/2023 9:01 AM EDT Pulse 101 10/26/2023 9:01 AM EDT Temperature 36.8 C (98.3 F) 10/26/2023 9:01 AM EDT Respiratory Rate 18 10/26/2023 9:01 AM EDT Oxygen Saturation 98% 10/26/2023 9:01 AM EDT Inhaled Oxygen Concentration - - Weight 121.1 kg (267 lb) 06/01/2024 3:33 PM EST Height 177.8 cm (5' 10 ) 06/01/2024 3:33 PM EST Body Mass Index 38.31 06/01/2024 3:33 PM EST Plan of Treatment Upcoming Encounters Date Type Department Care Team (Late st Contact Info) Description 06/07/2025 2:45 PM EST Office Visit [facility] [address] [place] [address] [place] [address] [place] [address] Erlin Xiong MD [facility] [place] [address] Health Maintenance Due Date Last Done Comments Depression Screening 1989 Adult BMI Follow Up Plan 1995 DTaP,Tdap and Td Vaccines (1 - Tdap) 01/31/1996 COVID-19 Vaccine (2023-2 5 season) 2023 04/15/2023, 11/29/2021, 05/02/2021, Additional history exists Influenza Vaccine 12/20/2024 02/15/2022, 01/22/2021 Adult BMI Screening 06/01/2025 06/01/2024 Tobacco Screening 06/01/2025 06/01/2024 Medical Devices Not on file Insurance [employer] Care Teams Timber Bucker Relationship Specialty Start Date End Date Stanley Feliz MD PCP - General Family Medicine 10/26/23
--- OUTSIDE RECORDS SUMMARY | 2024-12-04 06:42 | XMS_ITS | Encounter Summary ---
Author Organization [facility] Address [address] [place] [address] Care Team Providers Care Protein Chemist Name Role Phone Stanley Feliz MD Primary Care Provider +- Encounter Details Date Type Department Care Team (Late st Contact Info) Description 02/16/2024 Orders Only [facility] [address] [facility] [address] [place] [id number] Stanley Feliz MD [address] [facility] [place] [address] Social History Tobacco Use Types Packs/Day Years Used Date Smoking Tobacco: Never Smokeless Tobacco: Never Alcohol Use Standard Drinks/Week Comments Yes 0 (1 standard drink = 0.6 oz pur e alcohol) Sex and Gender Information Value Date Recorded Sex Assigned at Not on file Legal Sex Male 6:52 PM EDT Gender Identity Not on file Sexual Orientation Not on file documented as of this encounter Plan of Treatment Not on file documented as of this encounter Procedures Procedure Name Priority Date/Time Associated Diagnosis Comments CT SCAN : SINUSES WITHOUT CONTRAST Routine 02/13/2024 9:51 AM EDT documented in this encounter Results * CT SCAN : SINUSES WITHOUT CONTRAST (02/13/2024 9:51 AM EDT) Anatomical Region Laterality Modality Radiographic Karolina ging us Stanley Feliz MD IMG XR PROCEDURES Final Result documented in this encounter Visit Diagnoses Not on filedocumented in this encounter Care Teams Protein Chemist Relationship Specialty Start Date End Date Stanley Feliz MD PCP - General Family Medicine 11/14/23 documented as of this encounter
--- OUTSIDE RECORDS SUMMARY | 2024-12-04 06:42 | XMS_ITS | Clinical Summary ---
Author Organization [facility] Healthcare Address [address] [place] [address] Care Team Providers Care Real Estate Listing Consultant Name Role Phone Stanley Feliz MD Primary Care Provider [phone] Allergies Active Allergy Reactions Criticality Noted Date Comments Penicillins 06/12/2021 Medications tamsulosin (Flomax) 0.4 MG 24 hr capsule Take 0.4 mg by mouth in the morning. 4 Active cetirizine (ZyrTEC) 10 MG tablet Take 20 mg by mouth Daily 4 Active glimepiride (Amaryl) 1 MG tablet Take 1 mg by mouth in the morning. Take before meals. 4 Active pantoprazole (ProtoNix) 40 MG EC tablet Take 40 mg by mouth Daily 4 Active fluticasone (Flonase) 50 MCG/ACT nasal sprayIndication s:ETD (Eustachian tube dysfunction), bilateral Administer 2 sprays into each nostril Daily Shake gently. Before first use, prime pump. After use, clean tip and replace cap. 16 g 11 4 Active montelukast (Singulair) 10 MG tablet Take 10 mg by mouth Daily 4 Active Active Problems Problem Noted Date Diagnosed Date Acne 11/19/2023 Hyponatremia 11/19/2023 Sepsis 11/19/2023 COVID-19 11/19/2023 Hyperuricemia 11/19/2023 Insulinoma 11/19/2023 Acute nontraumatic kidney injury 11/19/2023 Sinus tachycardia 11/19/2023 GERD (gastroesophageal reflux disease) Overweight 11/19/2023 Lumbar disc disease 11/19/2023 Constipation 11/19/2023 Balanitis 11/19/2023 Acute cystitis without hematuria 11/19/2023 Acute sinusitis 11/19/2023 IBS (irritable bowel syndrome) 11/19/2023 Diverticulitis 11/19/2023 Hypertriglyceridemia 11/19/2023 Borderline diabetes mellitus 11/19/2023 Glaucoma 11/19/2023 Migraine headache 11/19/2023 Gynecomastia 11/19/2023 Ynoh-Psifr-Nkosjsi disease (HHS-HCC) 11/19/2023 Kidney stone 08/27/2023 Overview (11/19/2023): 08/27/23: CT 08/23/2023 showed a 6 mm [...] Plan follow-up as scheduled unless symptoms recur Last Assessment & Plan: In 9 months with a KUB. He will call sooner if any problems. Prostate cancer screening 06/12/2021 Urinary frequency 06/12/2021 Overview (11/19/2023): 06/12/21: Lower urinary tract symptoms. Multifactorial however [...] substantial change in symptoms. Can followup prn 06/12/21: Lower urinary tract symptoms. Multifactorial however [...] substantial change in symptoms. Can followup prn Family History Medical History Relation Name Comments Diabetes type II Brother x2 Diabetes Father Chronic kidney disease Mother Diabetes Mother HTN Mother Relation Name Status Comments Brother Alive Father Alive Mother Sister Alive Social History Tobacco Use Types Packs/Day [...] Sign Reading Time Taken Comments Blood Pressure 128/76 02/27/2024 8:34 AM EST Pulse - - Temperature - - Respiratory Rate - - Oxygen Saturation - - Inhaled Oxygen Concentration - - Weight 124 kg (273 lb) 11/24/2023 2:19 PM EDT Height 177.8 cm (5' 10 ) 02/27/2024 8:34 AM EST Body Mass Index 39.17 11/24/2023 2:19 PM EDT Plan of Treatment Health Maintenance Due Date Last Done Comments CT Colonography 1977 Colonoscopy 1975 Colorectal Cancer Screening 1975 FIT-DNA 1975 FIT 1975 FOBT 1975 Sigmoidoscopy 1975 Influenza Vaccine (#1) 2024 02/15/2022, 2020 Insurance [employer] Care Teams Real Estate Listing Consultant Relationship Specialty Start Date End Date Stanley Feliz MD PCP - General Family Medicine 11/14/23
[2024-12-04 07:01] LABS: Hematocrit 44.4 % (42.0-54.0); Hemoglobin 15.4 g/dL (14.0-18.0); Immature Granulocytes Abs Auto 0.02 10^3/uL (0.00-0.03); Immature Granulocytes Pct Auto 0.3 % (0.0-0.5); Lymphocytes Absolute Auto 2.2 10^3/uL (1.2-3.8); Mean Corpuscular HGB Conc 34.7 g/dL (29.9-35.2); Mean Corpuscular Hemoglobin 31.0 pg (25.9-34.0); Mean Corpuscular Volume 89.3 fL (80.0-94.0); Platelet Count 178 10^3/uL (150-450); Red Blood Count 4.97 10^6/uL (4.70-6.10); White Blood Count 7.4 10^3/uL (4.0-11.0)
[2024-12-04 07:23] LABS: Alanine Aminotransferase 30 U/L (16-63); Albumin Globulin Ratio 0.9; Albumin Level 3.8 g/dL (3.4-5.0); Alkaline Phosphatase 41 U/L (46-116); Anion Gap 10.6; Aspartate Amino Transferase 19 U/L (15-37); Blood Urea Nitrogen 13.0 mg/dL (7.0-18.0); Calcium 8.7 mg/dL (8.5-10.1); Carbon Dioxide 29.6 mmol/L (21.0-32.0); Chloride 105 mmol/L (98-107); Cholesterol 165 mg/dL (<=200); Estimated GFR (African America >60 (>=60 mL/min/1.73m^2); Estimated GFR (Non-African Ame >60 (>=60 mL/min/1.73m^2); Free T3 2.34 pg/mL (2.18-3.98); Globulin 4.1 g/dL; Glucose 117 mg/dL (74-106); HDL Cholesterol 36 mg/dL (40-60); Potassium 4.2 mmol/L (3.5-5.1); Sodium 141 mmol/L (136-145); Thyroid Stimulating Hormone 2.328 uIU/mL (0.358-3.740); Total Protein 7.9 g/dL (6.4-8.2); Triglycerides 159 mg/dL (<=150); VLDL CHOLESTEROL 31.8 mg/dL
== END 2024-12-04 06:36 | disposition home or self-care (01) ==
PROVIDERS: PCP Family Medicine; Visit Provider Family Medicine
DX: Z00.00 Encounter for general adult medical examination without abnormal findings (principal); Z12.5 Encounter for screening for malignant neoplasm of prostate
CPT/HCPCS: 36415; 80053; 80061; 83036; 83525; 84436; 84443; 84481; 85025; G0103

== ENCOUNTER 2024-12-17 09:12 | Outpatient (OUT) | payer OTHER, SELFPAY ==
--- OUTSIDE RECORDS SUMMARY | 2024-07-15 11:45 | XMS_ITS ---
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 Name Role Phone Nicola Feliz Primary Care Provider Allergies Allergen (clinical drug ingredient) Drug/Non Drug Allergy documented on EMR Reaction Allergy Type Onset Date Status Penicillin rash Drug Allergy Active Results Component Value Reference Range Notes UA DIP NONAUTO WO MICRO (810 02) - IN OFFICE Reviewed date:07/22/2024 05:17:41 PM Interpretation: Performing Lab: Notes/Report: COLOR yellow CLARITY clear GLUCOSE n BILIRUBIN n KETONE n SPECIFIC GRAVITY 1.010 BLOOD n PH 5 PROTEIN trace UROBILINOGEN n NITRITE + LEUKOCYTE ESTERASE n REASON FOR VISIT frequent urination, Rash on legs- some swelling- itchy- left worse than right per patient Medications Medication SIG (Take, Route, Frequency, Duration) Notes Start Date End Date Status Cetirizine HCl 10 MG 2 tablet Orally Onc e a day for 30 days 11/13/2023 Active Blood Glucose Test Strip Active Blood Glucose Monitor System w/Device as directed Active Pyridium 200 MG 1 tablet after meals Orally Three times a day for 2 days 07/15/2024 Active Triamcinolone Acetonide 0.1 % 1 application Externally bid 07/15/2024 Active Linzess 72 MCG 1 capsule at least 3 0 minutes before the first meal of the day on an empty stomach Orally Once a day for 30 days 04/15/2024 Active Levsin/SL 0.125 MG 1 tablet under the t ongue and allow to dissolve as needed for abd pain Sublingual AC and HS 10/03/2023 Active Cefdinir 300 MG 2 capsule Orally onc e a day for 10 days 07/15/2024 Active Singulair 10 MG 1 tablet Orally Once a day for 30 days 2024 Active Protonix 40 MG 1 tablet Orally Once a day for 30 days Active Lancets 30G - as directed Acti ve Glimepiride 2 MG 1 tablet with breakf ast or the first main meal of the day Orally Once a day for 30 days 09/22/2023 Active Fluticasone Furoate 27.5 MCG/SPRAY 2 sprays (1 spray in each nostril) Nasally BID for 30 days 11/13/2023 Active Flomax 0.4 MG 1 capsule Orally Onc e a day for 30 day(s) 10/03/2023 Active Social History Tobacco Use: Social History Observation Description Date Details (start date - stop date) Never Smoker NA - NA Tobacco Use/Smoking Question Answer Notes Patient is a nonsmoker Vital Signs Weight 273.0 lbs 07/15/2024 Height 70 in 07/15/2024 Blood pressure systolic 146 mm Hg 07/16/19 25 Blood pressure diastolic 98 mm Hg 025 BMI 39.17 kg/m2 07/15/2024 Encounters Encounter Location Date Provider Diagnosis [address] [id number] 07/15/2024 Nicola Hoy Frequent urination R35.0 ; Acute UTI (urinary tract infection) N39.0 and Eczema L30.9 Assessments Encounter Date Diagnosis (ICD Code) Assessment Notes Treatment Notes Treatment Clinical Notes Section Notes 07/15/2024 Frequent urination (ICD-10 - R35.0) 07/15/2024 Acute UTI (urinary tract infection) (ICD-10 - N39.0) 07/15/2024 Eczema (ICD-10 - L30.9) Plan Of Treatment Medication Medication Name Sig Start Date Stop Date Notes Pyridium 200 MG 1 tablet after meals Orally Three times a day for 2 days 07/15/2024 Triamcinolone Acetonide 0.1 % 1 application Externally bid 07/15/2024 Cefdinir 300 MG 2 capsule Orally onc e a day for 10 days 07/15/2024 Progress Notes * CASEShilo EDOB:1975 (49 yo M)Acc No.[id number]:07/15/2024 Progress Note Patient: Shilo FORREST Provider: Karime Feliz ([facility])MD :1975 A ge:49 Y S ex:Male Date:07/15/2024 Address:[place] [address], [id number] Check In:03:27 PM ESTCheck O ut:04:14 PM EST Subjective: * Chief Complaints: * F requent urinationRash on legs- some swelling- itchy- left worse than right per patient * HPI: G eneral: itching more on left lower - no new socks dysuria nad frequency. * ROS: E ENT: hearing changes d enies. v isual changes d enies.?non-healing mouth sores d enies. s wollen glands or neck lumps d enies. h oarseness d enies. s ore throat d enies. d ifficulty swallowing d enies. n ose bleeds d enies. n bryant congestion d enies. e ar ache d enies. e ar discharge?denies. r inging in ears d enies. l ight sensitivity d enies. e ye pain d enies. b lurring d enies. e ye irritation d enies. d ouble vision d enies.?vision loss d enies. G eneral/Constitutional: Sweats: D enies. F atigue d enies. S leep problems d enies. A norexia d enies. M alaise d enies. W eight loss d enies.?Fatigue or Weakness d enies. F ever or Chills d enies. C ardiovascular: Shortness of Breath w/lying flat d enies. L ightheadedness/dizziness d enies. C hest tightness/ heavy pressure d enies. S welling of legs, ankles, or feet d enies. W aking up with shortness of breath d enies. C hest pain denies. P alpitations d enies. W eight gain d enies. R espiratory: Chronic or frequent cough d enies. C oughing up blood?denies. D ifficulty breathing d enies. P roductive cough d enies. S noring?denies. S hortness of breath that awakens from sleep (PND) d enies. C hest pain d enies. S putum production d enies. W heezing d enies. M usculoskeletal: Joint pain d enies. J oint Fluid d enies. B ack pain d enies. K nee pain d enies. N paulette pain d enies. J oint Stiffness d enies. M uscle cramps d enies. W eakness of muscles d enies. A rthritis d enies. M uscle aches d enies. P ain in shoulder(s) d enies. S wollen joints d enies. * Active Problem List N30.00 Acute cystitis witho ut hematuria Modified On:04/02/2023 Status:confirmed N48.1 Balanitis Modified On:08/30/2022 Status:confirmed G43.909 Migraine headache Modified On:08/30/2022 Status:confirmed K21.9 GERD (gastroesophage al reflux disease) Modified On:08/30/2022 Status:confirmed E87.1 Hyponatremia Modified On:08/30/2022U Status:confirmed K21.9 Esophageal reflux Modified On:08/30/2022U Status:confirmed H40.9 Glaucoma Modified On:08/30/2022U Status:confirmed K58.9 IBS (irritable bowel syndrome) Modified On:08/30/2022U Status:confirmed R00.0 Sinus tachycardia Modified On:08/30/2022U Status:confirmed E78.1 Hypertriglyceridemia Modified On:08/30/2022U Status:confirmed J01.90 Acute sinusitis Modified On:08/30/2022U Status:confirmed M51.9 Lumbar disc disease Modified On:08/30/2022U Status:confirmed K59.00 Constipation Modified On:08/30/2022U Status:confirmed E79.0 Hyperuricemia Modified On:08/30/2022U Status:confirmed Z00.00 Well adult Modified On:02/27/2023 Status:confirmed K57.92 Diverticulitis Modified On:08/30/2022 Status:confirmed R73.09 Borderline diabetes mellitus Modified On:08/30/2022 Status:confirmed N62 Gynecomastia Modified On:08/30/2022 Status:confirmed E66.3 Over weight Modified On:08/30/2022 Status:confirmed A41.9 Sepsis Modified On:08/30/2022 Status:confirmed Z00.00 Physical exam, routi ne Modified On:08/30/2022 Status:confirmed M91.10 Sbfb-Hcufx-Lkcwnmd d isease Modified On:08/30/2022 Status:confirmed N17.9 Acute nontraumatic k idney injury Modified On:08/30/2022 Status:confirmed D13.7 Insulinoma Modified On:08/30/2022 Status:confirmed U07.1 COVID-19 Modified On:08/30/2022 Status:confirmed R51.9 Headache, unspecifie d Modified On:08/30/2022 Status:confirmed D72.829 Elevated WBC count Modified On:07/18/2022 Status:confirmed F32.A Depression, unspecif ied Modified On:08/29/2022 Status:confirmed K21.9 Gastro-esophageal re flux disease without esophagitis Modified On:08/29/2022 Status:confirmed M51.9 Unspecified thoracic , thoracolumbar and lumbosacral intervertebral disc disorder Modified On:08/29/2022U Status:confirmed K58.9 Irritable bowel synd rakesh without diarrhea Modified On:08/29/2022 Status:confirmed K57.92 Diverticulitis of in testine, part unspecified, without perforation or abscess without bleeding Modified On:08/29/2022 Status:confirmed E78.1 Pure hyperglyceridem ia Modified On:08/29/2022U Status:confirmed R73.03 Prediabetes Modified On:08/29/2022U Status:confirmed H40.9 Unspecified glaucoma Modified On:08/29/2022 Status:confirmed G43.919 Migraine, unspecifie d, intractable, without status migrainosus Modified On:08/29/2022 Status:confirmed R13.10 Dysphagia, unspecifi ed Modified On:11/14/2022 Status:confirmed R50.9 Fever, unspecified Modified On:03/19/2023 Status:confirmed K80.20 Gallstone Modified On:09/12/2023 Status:confirmed N39.0 Acute UTI Modified On:09/26/2023 Status:confirmed H66.92 Left otitis media Modified On:11/06/2023 Status:confirmed H60.92 Left otitis externa Modified On:11/06/2023 Status:confirmed E23.6 Enlarged pituitary g land Modified On:02/23/2024 Status:confirmed * Medical History: * Surgical History: C olonoscopy EGD * Hospitalization/Major Diagno stic Procedure: D enies Past Hospitalization * Family History: F ather: alive, diagnosed with Diabetes mellitus without mention of complication, type II or unspecified type, not stated as uncontrolled. M other: , diagnosed with Other malignant neoplasm of unspecified site, Diabetes mellitus without mention of complication, type II or unspecified type, not stated as uncontrolled, Unspecified essential hypertension, Chronic kidney disease, unspecified. B rother(s): alive, diagnosed with Diabetes mellitus without mention of complication, type II or unspecified type, not stated as uncontrolled. S ister(s): alive, TONS of problems.?2 brother(s) , 1 sister(s) . . * Social History: T obacco Use: T obacco Use/Smoking P atient is a n onsmoker * Medications: T .[employer] Glucose Monitor System w/Device Kit as directed Blood Glucose Test Strip Cetirizine HCl 10 MG Tablet 2 tablet Orally Once a day Flomax 0.4 MG Capsule 1 capsule Orally Once a day Fluticasone Furoate 27.5 MCG/SPRAY Suspension 2 sprays (1 spray in each nostril) Nasally BID Glimepiride 2 MG Tablet 1 tablet with breakfast or the first main meal of the day Orally Once a day Lancets 30G - Miscellaneous as directed Levsin/SL(Hyoscyamine Sulfate) 0.125 MG Tablet Sublingual 1 tablet under the tongue and allow to dissolve as needed for abd pain Sublingual AC and HS Linzess(linaCLOtide) 72 MCG Capsule 1 capsule at least 30 minutes before the first meal of the day on an empty stomach Orally Once a day Protonix(Pantoprazole Sodium) 40 MG Tablet Delayed Release 1 tablet Orally Once a day Singulair(Montelukast Sodium) 10 MG Tablet 1 tablet Orally Once a day Medication List reviewed and reconciled with the patientTaking Blood Glucose Monitor System w/Device Kit as directed Taking Blood Glucose Test Strip Taking Cetirizine HCl 10 MG Tablet 2 tablet Orally Once a day Taking Flomax 0.4 MG Capsule 1 capsule Orally Once a day Taking Fluticasone Furoate 27.5 MCG/SPRAY Suspension 2 sprays (1 spray in each nostril) Nasally BID Taking Glimepiride 2 MG Tablet 1 tablet with breakfast or the first main meal of the day Orally Once a day Taking Lancets 30G - Miscellaneous as directed Taking Levsin/SL(Hyoscyamine Sulfate) 0.125 MG Tablet Sublingual 1 tablet under the tongue and allow to dissolve as needed for abd pain Sublingual AC and HS Taking Linzess(linaCLOtide) 72 MCG Capsule 1 capsule at least 30 minutes before the first meal of the day on an empty stomach Orally Once a day Taking Protonix(Pantoprazole Sodium) 40 MG Tablet Delayed Release 1 tablet Orally Once a day Taking Singulair(Montelukast Sodium) 10 MG Tablet 1 tablet Orally Once a day Medication List reviewed and reconciled with the patient * Allergies: P enicillin: rash - Allergyno[Allergies Verified] Objective: * Vitals: W t:273.0lbs, Ht: 70 in, BP:146/98mm Hg, BMI:39.17Index, Ht-cm: 177.8 cm, Wt-k.83 kg. * Examination: P hysical Exam: GENERAL: w ell developed, well nourished, in no acute distress. HEAD: n ormocephalic/atraumatic. EYES: p upils equal, round and reactive to light, conjunctivae and sclerae normal. EARS: n o deformity or lesion of external ear, canals and TM appear normal bilaterally, TM's intact, not inflamed with normal light reflex, hearing grossly normal to conversational speech. NOSE: n o deformity, discharge, inflammation, or lesions.? MOUTH: m ucous membranes moist, normal oropharynx and posterior pharynx without lesions or exudates, tongue normal, dentition normal. NECK: n paulette supple, no masses or palpable cervical nodes, trachea midline, thyroid without nodules, masses, tenderness, or enlargement. CHEST: n o chest wall deformity, no chest wall tenderness.? LUNGS: n ormal respiratory effort and clear to auscultation, no wheezes, rales, or rhonchi, good air exchange. CARDIO: r egular rate and rhythm, normal S1 and S2, nor murmur, rub, or gallop. PULSES: n ormal capillary refill. ABDOMEN: s oft, non-distended, non-tender, no masses. MUSCULOSKELETAL: n o deformity or scoliosis noted, normal range of motion, joints normal, no erythema, edema, effusion, or ecchymosis. EXTREMITY: n o clubbing, cyanosis, edema, or deformity with normal ROM in both upper and lower bilateral extremities. NEUROLOGIC: g rossly normal. SKIN: n o rashes, ulcerations, or suspicious lesions. LYMPH NODES: n o cervical adenopathy, nodes normal. MENTAL STATUS: a lert and oriented x3, normal mood and affect. Assessment: * Assessment: 1. F requent urination - R35.0 (Primary) 2 . A cute UTI (urinary tract infection) - N39.0 3 . E czema - L30.9 Plan: * Treatment: * Labs: * L ab: UA DIP NONAUTO WO MICRO (06465) - IN OFFICE (Collection Date & Time - 07/15/2024) Value Reference Range C OLOR yellow * C LARITY clear * G LUCOSE n * B ILIRUBIN n * K ETONE n * S PECIFIC GRAVITY 1.010 * B LOOD n * P H 5 * P ROTEIN trace * U ROBILINOGEN n * N ITRITE + * L EUKOCYTE ESTERASE n * Procedure Codes: 8 1002 URINALYSIS WO MICRO * * Sign off status: Completed Visit Status: C HK (Check Out) true * Provider: Karime Feliz ([facility])MD Date: 0 07/15/2024 Generated for Printi ng/Faxing/eTransmitting on: 0 12/17/2024 09:16 AM EDT History and Physical Notes * HPI (History of Present Illness) Category Sub-Category Detail Notes Category Not es General itching more on left lower - no new socks dysuria nad frequency Examination Category Sub-Category Detail Notes Category Not es Physical Exam GENERAL: well developed, well nourished, in no acute distress HEAD: normocephalic/atraum atic EYES: pupils equal, round and reactive to light, conjunctivae and sclerae normal EARS: no deformity or lesi on of external ear, canals and TM appear normal bilaterally, TM's intact, not inflamed with normal light reflex, hearing grossly normal to conversational speech NOSE: no deformity, discha rge, inflammation, or lesions MOUTH: mucous membranes emily st, normal oropharynx and posterior pharynx without lesions or exudates, tongue normal, dentition normal NECK: neck supple, no mass es or palpable cervical nodes, trachea midline, thyroid without nodules, masses, tenderness, or enlargement CHEST: no chest wall deform ity, no chest wall tenderness LUNGS: normal respiratory e ffort and clear to auscultation, no wheezes, rales, or rhonchi, good air exchange CARDIO: regular rate and rhy thm, normal S1 and S2, nor murmur, rub, or gallop PULSES: normal capillary ref ill ABDOMEN: soft, non-distended, non-tender, no masses RECTAL: MUSCULOSKELETAL: no deformity or scol iosis noted, normal range of motion, joints normal, no erythema, edema, effusion, or ecchymosis EXTREMITY: no clubbing, cyanosi s, edema, or deformity with normal ROM in both upper and lower bilateral extremities NEUROLOGIC: grossly normal SKIN: no rashes, ulceratio ns, or suspicious lesions LYMPH NODES: no cervical adenopat hy, nodes normal MENTAL STATUS: alert and oriented x 3, normal mood and affect
--- OUTSIDE RECORDS SUMMARY | 2024-07-22 11:45 | XMS_ITS ---
Author Organization [facility] in [place] Address [address] [place] [address] Care Team Providers Care Product Safety Specialist Name Role Phone Nicola Feliz Primary Care Provider [phone] Allergies Allergen (clinical drug ingredient) Drug/Non Drug Allergy documented on EMR Reaction Allergy Type Onset Date Status Penicillin rash Drug Allergy Active REASON FOR VISIT bladder infection still- still taking ATB, Feels like still needs to use the restroom a lot, Feels like left lower leg still retaining water Medications Medication SIG (Take, Route, Frequency, Duration) Notes Start Date End Date Status Levsin/SL 0.125 MG 1 tablet under the t ongue and allow to dissolve as needed for abd pain Sublingual AC and HS 10/03/2023 Active Lancets 30G - as directed Acti ve Protonix 40 MG 1 tablet Orally Once a day for 30 days Active Linzess 72 MCG 1 capsule at least 3 0 minutes before the first meal of the day on an empty stomach Orally Once a day for 30 days 04/15/2024 Active Glimepiride 2 MG 1 tablet with breakf ast or the first main meal of the day Orally Once a day for 30 days 09/22/2023 Active Cetirizine HCl 10 MG 2 tablet Orally Onc e a day for 30 days 11/13/2023 Active Cefdinir 300 MG 2 capsule Orally onc e a day for 10 days 07/15/2024 Active Fluticasone Furoate 27.5 MCG/SPRAY 2 sprays (1 spray in each nostril) Nasally BID for 30 days 11/13/2023 Active Flomax 0.4 MG 1 capsule Orally Onc e a day for 30 day(s) 10/03/2023 Active levoFLOXacin 750 MG 1 tablet Orally Once a day for 10 day(s) 07/22/2024 Active Blood Glucose Test Strip Active Singulair 10 MG 1 tablet Orally Once a day for 30 days 2024 Active Blood Glucose Monitor System w/Device as directed Active Pyridium 200 MG 1 tablet after meals Orally Three times a day for 2 days 07/15/2024 Active Triamcinolone Acetonide 0.1 % 1 application Externally bid 07/15/2024 Active Social History Tobacco Use: Social History Observation Description Date Details (start date - stop date) Never Smoker NA - NA Tobacco Use/Smoking Question Answer Notes Patient is a nonsmoker Vital Signs Weight 273.2 lbs 07/22/2024 Height 70 in 07/22/2024 Blood pressure systolic 132 mm Hg 07/23/19 25 Blood pressure diastolic 92 mm Hg 025 BMI 39.2 kg/m2 07/22/2024 Encounters Encounter Location Date Provider Diagnosis [facility] [address] [place] [address] 07/22/2024 Nicola Feliz Acute cystitis witho ut hematuria N30.00 Assessments Encounter Date Diagnosis (ICD Code) Assessment Notes Treatment Notes Treatment Clinical Notes Section Notes 07/22/2024 Acute cystitis without hematuria (ICD-10 - N30.00) Plan Of Treatment Medication Medication Name Sig Start Date Stop Date Notes levoFLOXacin 750 MG 1 tablet Orally Once a day for 10 day(s) 07/22/2024 Pending Test Test Name Order Date Urinalysis Microscopic 07/22/2024 CULTURE URINE 07/22/2024 Progress Notes * Shilo VEGAS EDOB:1975 (49 yo M)Acc No.[id number]:07/22/2024 Progress Note Patient: Shilo FORREST Provider: Karime Feliz ([facility])MD :1975 A ge:49 Y S ex:Male Date:07/22/2024 [id number] Check In:03:24 PM ESTCheck O ut:04:32 PM EST Subjective: * Chief Complaints: * b ladder infection still- still taking ATBFeels like still needs to use the restroom a lotFeels like left lower leg still retaining water * HPI: G eneral: still withbladder symptosm. * ROS: E ENT: hearing changes d [...] hematuria Modified On:04/02/2023 Status:confirmed N48.1 Balanitis Modified On:08/30/2022U Status:confirmed G43.909 Migraine headache Modified On:08/30/2022U Status:confirmed K21.9 GERD (gastroesophage al reflux disease) Modified On:08/30/2022 Status:confirmed E87.1 Hyponatremia Modified On:08/30/2022 Status:confirmed K21.9 Esophageal reflux Modified On:08/30/2022U Status:confirmed H40.9 Glaucoma Modified On:08/30/2022U Status:confirmed K58.9 IBS (irritable bowel syndrome) Modified On:08/30/2022U Status:confirmed R00.0 Sinus tachycardia Modified On:08/30/2022U Status:confirmed E78.1 Hypertriglyceridemia Modified On:08/30/2022U Status:confirmed J01.90 Acute sinusitis Modified On:08/30/2022U Status:confirmed M51.9 Lumbar disc disease Modified On:08/30/2022U Status:confirmed K59.00 Constipation Modified On:08/30/2022U Status:confirmed E79.0 Hyperuricemia Modified On:08/30/2022U Status:confirmed Z00.00 Well adult Modified On:02/27/2023U Status:confirmed K57.92 Diverticulitis Modified On:08/30/2022U Status:confirmed R73.09 Borderline diabetes mellitus Modified On:08/30/2022U Status:confirmed N62 Gynecomastia Modified On:08/30/2022U Status:confirmed E66.3 Over weight Modified On:08/30/2022U Status:confirmed A41.9 Sepsis Modified On:08/30/2022 Status:confirmed Z00.00 Physical exam, routi ne Modified On:08/30/2022 Status:confirmed M91.10 Vjnj-Stnhl-Conkqaa d isease Modified On:08/30/2022 Status:confirmed N17.9 Acute [...] thoracolumbar and lumbosacral intervertebral disc disorder Modified On:08/29/2022 Status:confirmed K58.9 Irritable bowel synd rakesh without diarrhea Modified On:08/29/2022 Status:confirmed K57.92 Diverticulitis of in testine, part unspecified, without perforation or abscess without bleeding Modified On:08/29/2022 Status:confirmed E78.1 Pure hyperglyceridem ia Modified On:08/29/2022U Status:confirmed R73.03 Prediabetes Modified On:08/29/2022U Status:confirmed H40.9 Unspecified glaucoma Modified On:08/29/2022U Status:confirmed G43.919 Migraine, unspecifie d, intractable, without status migrainosus Modified On:08/29/2022U Status:confirmed R13.10 Dysphagia, unspecifi ed Modified On:11/14/2022U Status:confirmed R50.9 Fever, unspecified Modified On:03/19/2023U Status:confirmed K80.20 Gallstone Modified On:09/12/2023/U Status:confirmed N39.0 Acute UTI Modified On:09/26/2023/U Status:confirmed H66.92 Left otitis media Modified On:11/06/2023/U Status:confirmed H60.92 Left otitis externa Modified On:11/06/2023/U Status:confirmed E23.6 Enlarged pituitary g land Modified On:02/23/2024/U Status:confirmed * Medical History: * Surgical History: [...] is a n onsmoker * Medications: T Oncoscope Glucose Monitor System w/Device Kit as directed Blood Glucose Test Strip Cefdinir 300 MG Capsule 2 capsule Orally once a day Cetirizine HCl 10 MG Tablet 2 tablet [...] Release 1 tablet Orally Once a day Pyridium(Phenazopyridine HCl) 200 MG Tablet 1 tablet after meals Orally Three times a day Singulair(Montelukast Sodium) 10 MG Tablet 1 tablet Orally Once a day Triamcinolone Acetonide 0.1 % Cream 1 application Externally bid Medication List reviewed and reconciled with the patientTaking Blood Glucose Monitor System w/Device Kit as directed Taking Blood Glucose Test Strip Taking Cefdinir 300 MG Capsule 2 capsule Orally once a day Taking Cetirizine HCl 10 MG Tablet 2 [...] 1 tablet Orally Once a day Taking Pyridium(Phenazopyridine HCl) 200 MG Tablet 1 tablet after meals Orally Three times a day Taking Singulair(Montelukast Sodium) 10 MG Tablet 1 tablet Orally Once a day Taking Triamcinolone Acetonide 0.1 % Cream 1 application Externally bid Medication List reviewed and reconciled with the patient * Allergies: P enicillin: rash - Allergyno[Allergies Verified] Objective: * Vitals: W t:273.2lbs, Ht: 70 in, BP:132/92mm Hg, BMI:39.2Index, Ht-cm: 177.8 cm, Wt-k.92 kg. * Examination: P hysical Exam: GENERAL: [...] mood and affect. Assessment: * Assessment: 1. A cute cystitis without hematuria - N30.00 (Primary) Plan: * Treatment: * Procedure Codes: * Preventive Medicine: Screenings/Counseling: B [place] ACTION PLAN Above Normal BMI Follow-up D ietary management education, guidance, and counseling * * Sign off status: Completed Visit Status: C HK (Check Out) true * Provider: Karime Feliz (JANEEN)MD Date: 0 07/22/2024 Generated for Paula jenkins/Hakan/Robertitting on: 12/17/2024 09:16 AM EDT History and Physical Notes * HPI (History of Present Illness) Category Sub-Category Detail Notes Category Not es General still withbladd er symptosm Examination Category Sub-Category Detail Notes Category Not [...]
--- OUTSIDE RECORDS SUMMARY | 2024-07-27 07:19 | XMS_ITS ---
Author Organization The [facility] in [place] Address [address] [place] [address] Care Team Providers Care Micro Lab Analyst Name Role Phone Nicola Feliz Primary Care Provider REASON FOR VISIT review urine Encounters Encounter Location Date Provider Diagnosis [facility] [address] [place] [address] 07/27/2024 Nicola Feliz Plan Of Treatment No Information Progress Notes * Shilo VEGAS EDOB:1975 (49 yo M)Acc No.[id number]:07/27/2024 Patient: Shilo FORREST :1975 A ge:49 Y S ex:Male Address:[address] [place], [address] * true * Date: Generated for Paula jenkins/Hakan/eTransmitting on: 0 12/17/2024 09:16 AM EDT
--- OUTSIDE RECORDS SUMMARY | 2024-12-03 06:45 | XMS_ITS ---
Author Organization The [facility] in [place] Address [address] [place] [address] Care Team Providers Care Chief Power Dispatcher Name Role Phone Nicola Feliz Primary Care Provider Allergies Allergen (clinical drug ingredient) Drug/Non Drug Allergy documented on EMR Reaction Allergy Type Onset Date Status Penicillin rash Drug Allergy Active Results Component Value Reference Range Notes UA DIP NONAUTO WO MICRO (810 02) - IN OFFICE Reviewed date:12/05/2024 01:19:40 PM Interpretation: Performing Lab: Notes/Report: COLOR yellow CLARITY clear GLUCOSE neg BILIRUBIN neg KETONE neg SPECIFIC GRAVITY 1.015 BLOOD trace PH 5 PROTEIN neg UROBILINOGEN neg NITRITE neg LEUKOCYTE ESTERASE neg REASON FOR VISIT Presents to office alone for c/o abd pressure . Thinks maybe constipation. Was not going as he should but has had a few recently, Also c/o urinary pressure off and on Medications Medication SIG (Take, Route, Frequency, Duration) Notes Start Date End Date Status Triamcinolone Acetonide 0.1 % 1 application Externally bid 07/15/2024 Active Blood Glucose Monitor System w/Device as directed Active Linzess 72 MCG 1 capsule at least 3 0 minutes before the first meal of the day on an empty stomach Orally Once a day for 30 days 04/15/2024 Active Blood Glucose Test Strip Active Protonix 40 MG 1 tablet Orally Once a day for 30 days Active Singulair 10 MG 1 tablet Orally Once a day for 30 days 2024 Active Flomax 0.4 MG 1 capsule Orally Onc e a day for 30 day(s) 10/03/2023 Active Glimepiride 2 MG 1 tablet with breakf ast or the first main meal of the day Orally Once a day for 30 days 09/22/2023 Active Lancets 30G - as directed Acti ve Social History Tobacco Use: Social History Observation Description Date Details (start date - stop date) Never Smoker NA - NA Tobacco Use/Smoking Question Answer Notes Patient is a nonsmoker AUDIT-C (Standard) Question Answer Notes Did you have a drink contain ing alcohol in the past year? Yes How often did you have six o r more drinks on one occasion in the past year? Never (0 point) How many drinks did you have on a typical day when you were drinking in the past year? 1 or 2 drinks (0 point) How often did you have a dri nk containing alcohol in the past year? 2 to 4 times a month (2 points) Points 2 Interpretation Negative Vital Signs Weight 275.6 lbs 12/03/2024 Height 70 in 12/03/2024 Blood pressure systolic 134 mm Hg 12/04/19 25 Blood pressure diastolic 82 mm Hg 025 BMI 39.54 kg/m2 12/03/2024 Encounters Encounter Location Date Provider Diagnosis [facility] [address] [place] [address] 12/03/2024 Nicola Hoy Acute UTI N39.0 ; Constipation K59.00 and Well adult Z00.00 Assessments Encounter Date Diagnosis (ICD Code) Assessment Notes Treatment Notes Treatment Clinical Notes Section Notes 12/03/2024 Acute UTI (ICD-10 - N39.0) 12/03/2024 Constipation (ICD-10 - K59.00) 12/03/2024 Well adult (ICD-10 - Z00.00) Plan Of Treatment Medication Medication Name Sig Start Date Stop Date Notes Linzess 72 MCG 1 capsule at least 3 0 minutes before the first meal of the day on an empty stomach Orally Once a day for 30 days 04/15/2024 Pending Test Test Name Order Date HEMOGLOBIN A1C (GLYCO) 12/03/2024 INSULIN, TOTAL 12/03/2024 LIPID PANEL (CHOL/TRIG/HDL/LDL) 12/04/19 25 THYROID PANEL (T4/TSH/FREE T3) PSA, SCREENING 12/03/2024 CMP (COMP MET PLUMMER) w/eGFR CKD-EPI 2024 CBC WITH DIFF 12/03/2024 Progress Notes * CASEShilo EDOB:1975 (49 yo M)Acc No.[id number]:12/03/2024 Progress Note Patient: Shilo FORREST Provider: Karime Feliz ([facility])MD :1975 A ge:49 Y S ex:Male Date:12/03/2024 Address:[facility] [address] [facility], [id number] Check In:10:24 AM ESTCheck O ut:11:45 AM EST Subjective: * Chief Complaints: * 1 . Presents to office alone for c/o abd pressure . Thinks maybe constipation. Was not going as he should but has had a few recently. 2. Also c/o urinary pressure off and on. * HPI: G eneral: some bladsder symtposm had BM this amand sdoes feel some better. * ROS: E ENT: hearing changes d [...] Status:confirmed K58.9 IBS (irritable bowel syndrome) Modified On:08/30/2022 Status:confirmed R00.0 Sinus tachycardia Modified On:08/30/2022 Status:confirmed E78.1 Hypertriglyceridemia Modified On:08/30/2022U Status:confirmed J01.90 [...] exam, routi ne Modified On:08/30/2022 Status:confirmed M91.10 Izng-Zhzsp-Uojhcpp d isease Modified On:08/30/2022U Status:confirmed N17.9 Acute nontraumatic k idney injury Modified On:08/30/2022U Status:confirmed D13.7 Insulinoma Modified On:08/30/2022U Status:confirmed U07.1 COVID-19 Modified On:08/30/2022U Status:confirmed R51.9 Headache, unspecifie d Modified On:08/30/2022U Status:confirmed D72.829 Elevated WBC count Modified On:07/18/2022U Status:confirmed F32.A Depression, unspecif ied Modified On:08/29/2022U Status:confirmed K21.9 Gastro-esophageal re flux disease without esophagitis Modified On:08/29/2022U Status:confirmed M51.9 Unspecified thoracic , thoracolumbar and lumbosacral intervertebral disc disorder Modified On:08/29/2022U Status:confirmed K58.9 Irritable bowel synd rakesh without diarrhea Modified On:08/29/2022U Status:confirmed K57.92 Diverticulitis of in testine, part unspecified, without perforation or abscess without bleeding Modified On:08/29/2022 Status:confirmed E78.1 Pure hyperglyceridem ia Modified On:08/29/2022 Status:confirmed R73.03 Prediabetes Modified On:08/29/2022 Status:confirmed H40.9 Unspecified glaucoma Modified On:08/29/2022 Status:confirmed [...] land Modified On:02/23/2024 Status:confirmed * Medical History: A cne, Hyponatremia, Sepsis, COVID-19, Hyperuricemia, Insulinoma, Acute nontraumatic kidney injury, Sinus tachycardia, GERD (gastroesophageal reflux disease), Over weight, Lumbar disc disease, Constipation, Balanitis, Acute cystitis without hematuria, Acute sinusitis, Well adult, IBS (irritable bowel syndrome), Diverticulitis, Esophageal reflux, Physical exam, routine, Hypertriglyceridemia, Borderline diabetes mellitus, Glaucoma, Migraine headache, Gynecomastia, Gzcp-Tizkb-Qckurut disease, Headache, unspecified. * Surgical History: C olonoscopy , EGD . * Family History: F ather: alive, diagnosed [...] Use/Smoking P atient is a n onsmoker D rug/Alcohol: A SCOTT-C (Standard) D id you have a drink containing alcohol in the past year? Y es H ow often did you have six or more drinks on one occasion in the past year? N ever (0 point) H ow many drinks did you have on a typical day when you were drinking in the past year? 1 or 2 drinks (0 point) H ow often did you have a drink containing alcohol in the past year? 2 to 4 times a month (2 points) P oints 2 I nterpretation N egative * Medications: T aking Blood Glucose Monitor System w/Device Kit as directed , Taking Blood Glucose Test Strip , Taking Flomax 0.4 MG Capsule 1 capsule Orally Once a day , Taking Glimepiride 2 MG Tablet 1 tablet with breakfast or the first main meal of the day Orally Once a day , Taking Lancets 30G - Miscellaneous as directed , Taking Linzess(linaCLOtide) 72 MCG Capsule 1 capsule at least 30 minutes before the first meal of the day on an empty stomach Orally Once a day , Taking Protonix(Pantoprazole Sodium) 40 MG Tablet Delayed Release 1 tablet Orally Once a day , Taking Singulair(Montelukast Sodium) 10 MG Tablet 1 tablet Orally Once a day , Taking Triamcinolone Acetonide 0.1 % Cream 1 application Externally bid , Discontinued Cefdinir 300 MG Capsule 2 capsule Orally once a day , Discontinued Cetirizine HCl 10 MG Tablet 2 tablet Orally Once a day , Discontinued Fluticasone Furoate 27.5 MCG/SPRAY Suspension 2 sprays (1 spray in each nostril) Nasally BID , Discontinued levoFLOXacin 750 MG Tablet 1 tablet Orally Once a day , Discontinued Levsin/SL(Hyoscyamine Sulfate) 0.125 MG Tablet Sublingual 1 tablet under the tongue and allow to dissolve as needed for abd pain Sublingual AC and HS , Discontinued Pyridium(Phenazopyridine HCl) 200 MG Tablet 1 tablet after meals Orally Three times a day , Medication List reviewed and reconciled with the patient * Allergies: P enicillin: rash - Allergy. Objective: * Vitals: W t:275.6lbs, Ht: 70 in, BP:134/82mm Hg, BMI:39.54Index, Ht-cm: 177.8 cm, Wt-k.01 kg. * Examination: P hysical Exam: GENERAL: [...] affect. Assessment: * Assessment: 1. A cute UTI - N39.0 (Primary) 2 . C onstipation - K59.00 3 . W ell adult - Z00.00 Plan: * Treatment: 2. W ell adult L AB: HEMOGLOBIN A1C (GLYCO) L AB: INSULIN, TOTAL L AB: LIPID PANEL (CHOL/TRIG/HDL/LDL) L AB: THYROID PANEL (T4/TSH/FREE T3) L AB: PSA, SCREENING L AB: CMP (COMP MET PLUMMER) w/eGFR CKD-EPI L AB: CBC WITH DIFF * Labs: * L ab: UA DIP NONAUTO WO MICRO (15187) - IN OFFICE (Collection Date & Time - 12/03/2024) Value Reference Range C OLOR yellow * C LARITY clear * G LUCOSE neg * B ILIRUBIN neg * K ETONE neg * S PECIFIC GRAVITY 1.015 * B LOOD trace * P H 5 * P ROTEIN neg * U ROBILINOGEN neg * N ITRITE neg * L EUKOCYTE ESTERASE neg * Procedure Codes: 8 1002 URINALYSIS WO MICRO * Preventive Medicine: Screenings/Counseling: B IA ACTION PLAN Above Normal BMI Follow-up D ietary management education, guidance, and counseling See treatment section of progress note for complete details of management plan. * * Sign off status: Completed Visit Status: C HK (Check Out) true * Provider: Karime Feliz ([facility])MD Date: 0 12/03/2024 Generated for Printi ng/Faxing/eTransmitting on: 0 12/17/2024 09:16 AM EDT History and Physical Notes * HPI (History of Present Illness) Category Sub-Category Detail Notes Category Not es General some bladsder symtposm had BM this amand sdoes feel some better Examination Category Sub-Category Detail Notes Category Not [...]
--- OUTSIDE RECORDS SUMMARY | 2024-12-04 12:38 | XMS_ITS ---
Author Organization [facility] [place] [facility] [place] Address [address] [place] [address] Care Team Providers Care Tester Waste Disposal Leakage Name Role Phone Nicola Fleiz Primary Care Provider [phone] REASON FOR VISIT lab results Encounters Encounter Location Date Provider Diagnosis [facility] [address] [place] [address] 12/04/2024 Nicola Feliz Hematuria R31.9 Assessments Encounter Date Diagnosis (ICD Code) Assessment Notes Treatment Notes Treatment Clinical Notes Section Notes 12/04/2024 Hematuria (ICD-10 - R31.9) Plan Of Treatment Pending Test Test Name Order Date UA (URINALYSIS, COMPLETE) 12/04/2024 Urine Culture 12/04/2024 Progress Notes * Shilo VEGAS EDOB:1975 (49 yo M)Acc No.[id number]:12/04/2024 Patient: Shilo FORREST :1975 A ge:49 Y S ex:Male Address:[address] [place], [address] Subjective: * Chief Complaints: * L ab results * Medical History: * Surgical History: * Hospitalization/Major Diagno stic Procedure: * Medications: Objective: * Vitals: * Physical Examination: Assessment: * Assessment: 1. H ematuria - R31.9 (Primary) Plan: * Treatment: * Procedure Codes: * true * Date: Generated for Printi ng/Faxing/eTransmitting on: 0 12/17/2024 09:16 AM EDT
--- OUTSIDE RECORDS SUMMARY | 2024-12-17 09:16 | XMS_ITS | Encounter Summary ---
Author Organization [facility] Address [address] [place] [address] Care Team Providers Care Hi Low Truck Driver Name Role Phone Stanley Feliz MD Primary Care Provider +- Encounter Details Date Type Department Care Team (Late st Contact Info) Description 02/16/2024 Orders Only [facility] [address] [facility] [address] [place] [id number] Stanley Feliz MD [address] [facility] [address] Social History Tobacco Use Types Packs/Day Years [...] on filedocumented in this encounter Care Teams Hi Low Truck Driver Relationship Specialty Start Date End Date Stanley Feliz MD PCP - General Family Medicine 11/14/23 documented as of this encounter
--- OUTSIDE RECORDS SUMMARY | 2024-12-17 09:16 | XMS_ITS | Clinical Summary ---
Author Organization [facility] Healthcare Address [address] [place] [address] Care Team Providers Care Tour Manager Name Role Phone Stanley Feliz MD Primary Care Provider [phone] Allergies Active Allergy Reactions Criticality Noted Date [...] Glaucoma 11/19/2023 Migraine headache 11/19/2023 Gynecomastia 11/19/2023 Uchd-Lgqas-Wrfkfct disease (HHS-HCC) 11/19/2023 Kidney stone 08/27/2023 Overview [...] 02/15/2022, 2020 Insurance [employer] Care Teams Tour Manager Relationship Specialty Start Date End Date Stanley Feliz MD PCP - General Family Medicine 11/14/23
--- OUTSIDE RECORDS SUMMARY | 2024-12-17 09:16 | XMS_ITS | Clinical Summary ---
Author Organization [facility] Address [facility] [id number] [address] [place] [address] Care Team Providers Care Flea Market Seller Name Role Phone Stanley Feliz MD Primary Care Provider [phone] Allergies Active Allergy Reactions Criticality Noted Date [...] Office Visit [facility] [address] [place] [address] [place] [address] [place] [address] Erlin Xiong MD [facility] [place] [address] Health Maintenance Due Date Last Done Comments Depression Screening 1989 Adult BMI Follow Up Plan 1995 DTaP,Tdap and Td Vaccines (1 - Tdap) 01/31/1996 COVID-19 Vaccine (2023-2 5 season) 2023 04/15/2023, 11/29/2021, 05/02/2021, Additional history exists Influenza Vaccine 12/20/2024 02/15/2022, 01/22/2021 Adult BMI Screening 06/01/2025 06/01/2024 Tobacco Screening 06/01/2025 06/01/2024 Medical Devices Not on file Insurance [employer] Care Teams Flea Market Seller Relationship Specialty Start Date End Date Stanley Feliz MD PCP - General Family Medicine 10/26/23
--- OUTSIDE RECORDS SUMMARY | 2024-12-17 09:16 | XMS_ITS | Patient Health Record ---
Author Organization [facility] in [place] Address [address] [place] [address] Care Team Providers Care Census Enumerator Name Role Phone Nicola Ho Primary Care Provider Brit Monteiro [phone] Allergies Allergen (clinical drug ingredient) Drug/Non Drug Allergy documented on EMR Reaction Allergy Type Onset Date Status Penicillin rash Drug Allergy Active Results Component Value Reference Range Notes INSULIN Reviewed date:12/05/2024 01:19:40 PM Interpretation: Performing Lab: Notes/Report: [facility] , Insulin 40.9 2.6-24.9 uIU/mL Performed at: - [facility] [address] [id number] Applied Technologist: Alonso Hall PhD, Phone: [phone] Performing Lab: see note - [facility] LB GLYCOHEMOGLOBIN A1C Reviewed date:12/04/2024 04:40:25 PM Interpretation: Performing Lab: Notes/Report: [facility] , Glycohemoglobin A1C 5.4 4.5-6.2 % ADA THERAPEUTIC TARGET < 7.0 ACTION SUGGESTED ADA RECOMMENDED LIMIT 4.0 - 6.0 > 7.0 Estimated Average Glucose 108 Performing Lab: see note ML - [facility] LB CBC AUTO DIFF Reviewed date:12/04/2024 04:40:25 PM Interpretation: Performing Lab: Notes/Report: [facility] , White Blood Count 7.4 4.0-11.0 10 3/uL Red Blood Count 4.97 4.70-6.10 10 6/uL Hemoglobin 15.4 14.0-18.0 g/dL Hematocrit 44.4 42.0-54.0 % Mean Corpuscular Volume 89.3 80.0-94.0 fL Mean Corpuscular Hemoglobin 31.0 25.9-34.0 pg Mean Corpuscular HGB Conc 34.7 29.9-35.2 g/dL Red Cell Distribution Width 13.2 11.0-15.0 % Platelet Count 178 150-450 10 3/uL Mean Platelet Volume 9.7 9.5-13.5 fL Neutrophils Percent Auto 62.3 43.0-75.0 % Lymphocytes Percent Auto 29.0 20.5-60.0 % Monocytes Percent Auto 5.7 1.7-12.0 % Eosinophils Percent Auto 1.9 0.9-7.0 % Basophils Percent Auto 0.8 0.2-2.0 % Immature Granulocytes Pct Auto 0.3 0.0-0.5 % Neutrophils Absolute Auto 4.6 1.4-6.5 10 3/uL Lymphocytes Absolute Auto 2.2 1.2-3.8 10 3/uL Monocytes Absolute Auto 0.4 0.3-0.8 10 3/uL Eosinophils Absolute Auto 0.1 0.0-0.7 10 3/uL Basophils Absolute Auto 0.1 0.0-0.1 10 3/uL Immature Granulocytes Abs Auto 0.02 0.00-0.03 10 3/uL Performing Lab: see note ML - [facility] [place] [facility] Reviewed date:07/26/2024 01:27:25 PM Interpretation: Performing Lab: Notes/Report: [facility] , Urine Culture - [facility] See Below For Report Urine Culture - [facility] No Growth 2 Days Urine Culture - [facility] [place]rine Culture [facility] No Growth 2 Days Urine Culture - [facility] Testing performed a [facility] Urine Culture - [facility] No Growth 2 Days Urine Culture - [facility] [address], [place] [address] Urine Culture - [facility] No Growth 2 Days Performing Lab: see note ML - [facility] LB UA RANDOM W or MICROSCOPIC Reviewed date:07/22/2024 05:17:41 PM Interpretation: Performing Lab: Notes/Report: [facility] , Color Urine LT. YELLOW YELLOW Clarity Urine CLEAR CLEAR Specific Waka Urine 1.020 1.005-1.025 pH Urine 6.0 5.0-9.0 [...] Performing Lab: see note ML - [facility] MR pituitary wo/w con Reviewed date:03/15/2024 02:05:23 PM Interpretation: Performing Lab: Notes/Report: Source Facility: [place] [address] Magnetic Resonance Report Signed Patient: Ascencion,Shilo Carpio MR#: [id number] : 1975 Acct:[id number] Age/Sex: 49 / M ADM Date: 03/12/24 Loc: MRI Attending Dr: Fer Ho M.D. Ordering Physician: Fer Ho M.D. Date of Service: 03/12/24 Procedure(s): MR pituitary wo/w con Accession Number(s): [id number] cc: Fer Ho M.D. [place] [address] Patient Name: SHILO VEGAS MRN: [id number] date: 1975 Sex: M Assigned Patient Location: MRI Current Patient Location: Accession/Order Number: [id number] Exam Date: 03/12/2024 09:45 Report Date: 03/15/2024 [...] the daly radiata and centrum semiovale with sparing of [...] M.D. Signed By: 03/15/24813 DD/ 0 TD/TT: Sql Developer Dba: [place] [address] Magnetic Resonance Report Signed Patient: Shilo Vegas MR#: [id number] : 1975 Acct:[id number] Age/Sex: 49 / M ADM Date: 03/12/24 Loc: MRI Attending Dr: Geraldo Ho M.D. Ordering Physician: Fer Ho M.D. Date of Service: 03/12/24 Procedure(s): MR pituitary wo/w con Accession Number(s): [id number] cc: Fer Ho M.D. The [address] [address] Patient Name: SHILO VEGAS MRN: [id number] date: 1975 Sex: M Assigned Patient Location: MRI Current Patient Location: Accession/Order Numb er: [id number] Exam Date: 4 09:45 Report Date: 03/15/2024 08:11 At the request of: FER HO Procedure: pituit gera wo/w con MR pituitary wo/w co n, 03/12/2024 9:45 AM EST INDICATION: Enlarged Pituitary Gland COMPARISON: Prior CT of the head dated 04/04/[address] of the sinuses dated 02/13/2024 TECHNIQUE: Multiplan ar, multisequential MRI images of brain were obtained without and with injection of contrast. FINDINGS: The cerebral sulci a [...] M.D. Signed By: 03/15/24813 DD/ 0 TD/TT: Sql Developer Dba: CT sinus wo con Reviewed date:02/15/2024 10:09:55 PM Interpretation: Performing Lab: Notes/Report: Source Facility: [facility] [place] [address] [place] [address] CT Scan Report Signed Patient: Shilo Vegas MR#: [id number] : 1975 Acct:[id number] Age/Sex: 49 / M ADM Date: 02/13/24 Loc: CT Attending Dr: Fer Ho M.D. Ordering Physician: Fer Ho M.D. Date of Service: 02/13/24 Procedure(s): CT sinus wo con Accession Number(s): [id number] cc: Fer Ho M.D. [place] [address] Patient Name: SHILO VEGAS MRN: [facility]:[id number] date: 1975 Sex: M Assigned Patient Location: CT Current Patient Location: Accession/Order Number: [id number] Exam Date: 02/13/2024 07:55 Report Date: 02/14/2024 [...] M.D. Signed By: 02/14/2444 DD/ 1 TD/TT: Sql Developer Dba: [place] [address] CT Scan Report Signed Patient: Ascencion,Shilo Carpio MR#: [id number] : 1975 Acct:[id number] Age/Sex: 49 / M ADM Date: 02/13/24 Loc: CT Attending Dr: Geraldo Ho M.D. Ordering Physician: Fer Ho M.D. Date of Service: 02/13/24 Procedure(s): CT sin us wo con Accession Number(s): [id number] cc: Fer Ho M.D. [place] [address] Patient Name: SHILO VEGAS MRN: [id number] date: 1975 Sex: M Assigned Patient Location: CT Current Patient Location: Accession/Order Numb er: [id number] Exam Date: 07:55 Report Date: 02/14/2024 08:42 [...] identified. OTHER: Enlarged pituitary fossa, 15 mm. C T/CT sinus wo con IMPRESSION: 1. 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 No evidence of acute sinusitis. 2. Enlarged pituitar y fossa, 15 mm. Consider MRI of brain if clinically indicated. Electronically authenticated by: NIKITA SESAY Date: 02/14/2024 08:42 Dictated By: Nikita Seasy M.D. Signed By: 02/14/2444 DD/ 1 TD/TT: Sql Developer Dba: UA DIP NONAUTO WO MICRO (810 02) - IN OFFICE Reviewed date:12/05/2024 01:19:40 PM Interpretation: Performing Lab: Notes/Report: COLOR yellow CLARITY clear GLUCOSE neg BILIRUBIN neg KETONE neg SPECIFIC GRAVITY 1.015 BLOOD trace PH 5 PROTEIN neg UROBILINOGEN neg NITRITE neg LEUKOCYTE ESTERASE neg UA DIP NONAUTO WO MICRO (810 02) - IN OFFICE Reviewed date:07/22/2024 05:17:41 PM Interpretation: Performing Lab: Notes/Report: COLOR yellow CLARITY clear GLUCOSE n BILIRUBIN n KETONE n SPECIFIC GRAVITY 1.010 BLOOD n PH 5 PROTEIN trace UROBILINOGEN n NITRITE + LEUKOCYTE ESTERASE n UA (Urinalysis, Dipstix only - w/o micro) [...] ESTERASE (GURDEEP) n NEG - NEG MG/DL TSH Reviewed date:12/04/2024 04:40:25 PM Interpretation: Performing Lab: Notes/Report: [facility] , Thyroid Stimulating Hormone 2.328 0.358-3.740 uIU/mL Performing Lab: see note ML - [facility] LB T4 Reviewed date:12/04/2024 04:40:25 PM Interpretation: Performing Lab: Notes/Report: [facility] , T4 Thyroxine 9.70 4.50-12.10 ug/dL Performing Lab: see note ML - [facility] LB PSA SCREENING Reviewed date:12/04/2024 04:40:25 PM Interpretation: Performing Lab: Notes/Report: [facility] , Prostate Specific Antigen Scrn 0.38 <=4.00 ng/mL Performing Lab: see note ML - [facility] LB PROF 14(COMP METB) Reviewed date:12/04/2024 04:40:25 PM Interpretation: Performing Lab: Notes/Report: [facility] , Sodium 141 136-145 mmol/L Potassium 4.2 3.5-5.1 mmol/L Chloride 105 98-107 mmol/L Carbon Dioxide 29.6 21.0-32.0 mmol/L Anion Gap 10.6 Glucose 117 74-106 mg/dL Blood Urea Nitrogen 13.0 7.0-18.0 mg/dL Creatinine 0.98 0.70-1.30 mg/dL Estimated GFR ( Lennie >60 >=60 mL/min/1.73m 2 Estimated GFR (Non- Tonja >60 >=60 mL/min/1.73m 2 BUN Creatinine Ratio 13.3 Calcium 8.7 8.5-10.1 mg/dL Bilirubin Total 0.4 0.2-1.0 mg/dL Aspartate Amino Transferase 19 15-37 U/L Alanine Aminotransferase 30 16-63 U/L Alkaline Phosphatase 41 46-116 U/L Total Protein 7.9 6.4-8.2 g/dL Albumin Level 3.8 3.4-5.0 g/dL Globulin 4.1 Albumin Globulin Ratio 0.9 Performing Lab: see note ML - [facility] LB LIPID PROFILE Reviewed date:12/04/2024 04:40:25 PM Interpretation: Performing Lab: Notes/Report: [facility] , Triglycerides 159 <=150 mg/dL Cholesterol 165 <=200 mg/dL HDL Cholesterol 36 40-60 mg/dL <40 mg/dl - HIGH CARDIOVASCULAR RISK > or =60 mg/dl - LOW CARDIOVASCULAR RISK LDL Cholesterol Calculated 98.0 >190 mg/dl VERY HIGH 130-159 mg/dl BORDERLINE HIGH 100-129 mg/dl NEAR OR ABOVE OPTIMAL <100 mg/dl OPTIMAL 160-189 mg/dl HIGH VLDL CHOLESTEROL 31.8 Chol HDL Ratio 4.6 4.4 - 7.1 AVERAGE RISK 7.1 - 11.0 MODERATE RISK 3.3 - 4.4 LOW RISK >11.0 HIGH RISK Performing Lab: see note ML - [facility] FREE T3 Reviewed date:12/04/2024 04:40:25 PM Interpretation: Performing Lab: Notes/Report: [facility] , Free T3 2.34 2.18-3.98 pg/mL Performing Lab: see note ML - [facility] LB Reason For Referral No Information Medications Medication [...] Problem Status W/U Status Risk Notes Problem 314613964 Gastro-esophagea l reflux disease without esophagitis (K21.9) Active confirmed Problem 859100808 Pure hyperglyceridemia (E78.1) Active confirmed Problem 314158793 Migraine, unspecified, intractable, without status migrainosus (G43.919) Active confirmed Problem 52883143 Unspecified glau coma (H40.9) Active confirmed Problem 036777387 Diverticulitis o f intestine, part unspecified, without perforation or abscess without bleeding (K57.92) Active confirmed Problem 47296309 Irritable bowel syndrome without diarrhea (K58.9) Active confirmed Problem 072778530 Unspecified thor acic, thoracolumbar and lumbosacral intervertebral disc disorder (M51.9) Active confirmed Problem Acute cystitis (35122450) Acute cystitis without hematuria (N30.00) Active confirmed Problem Balanitis (19988387) Balanitis (N48.1) Active c onfirmed Problem 89798086 Dysphagia, unspecified (R13.10) Active confirmed Problem 525480350 Fever, unspecifi ed (R50.9) Active confirmed Problem Migraine variant wit h headache (disorder) (011858471) Migraine headache (G43.909) Active confirmed Problem Gastroesophageal reflux disease (566733027) GERD (gastroesophageal reflux disease) (K21.9) Active confirmed Problem Hyponatremia (95869367) Hyponatremia (E87.1) Active confirmed Problem Esophageal reflux (355309117) Esophageal reflux (K21.9) Active confirmed Problem Glaucoma (61520465) Glaucoma (H40.9) Active con firmed Problem Irritable bowel syndrome (24573242) IBS (irritable bowel syndrome) (K58.9) Active confirmed Problem Sinus tachycardia (33634921) Sinus tachycardia (R00.0) Active confirmed Problem Hypertriglyceridemia (733266335) Hypertriglyceridemia (E78.1) Active confirmed Problem Leukocytosis (513852152) Elevated WBC count (D72.829) Active confirmed Problem Acute sinusitis (35677680) Acute sinusitis (J01.90) Active confirmed Problem Disorder of lumbar disc (567896485) Lumbar disc disease (M51.9) Active confirmed Problem Constipation (16761108) Constipation (K59.00) Active confirmed Problem Hyperuricemia (78481769) Hyperuricemia (E79.0) Active confirmed Problem Well adult (417035998) Well adult (Z00.00) Active confirmed Problem Diverticulitis (97055454) Diverticulitis (K57.92) Active confirmed Problem Otitis media of left ear (3216844923345440) Left otitis media (H66.92) Active confirmed Problem Gallstone (632771521) Gallstone (K80.20) Active confirmed Problem Abnormal glucose level (447430515) Borderline diabetes mellitus (R73.09) Active confirmed Problem Gynecomastia (1512548) Gynecomastia (N62) Active confirmed Problem Overweight (134551241) Over weight (E66.3) Active confirmed Problem Sepsis (81123843) Sepsis (A41.9) Active confirm ed Problem Acute urinary tract infection (618146570) Acute UTI (N39.0) Active confirmed Problem Physical examination procedure (0223638) Physical exam, routine (Z00.00) Active confirmed Problem Pituitary gland enlarged (768916311) Enlarged pituitary gland (E23.6) Active confirmed Problem Otitis externa of left ear (0103691941634784) Left otitis externa (H60.92) Active confirmed Problem Idjd-Rsweo-Pavhflu disease (272460777) Bmle-Jllqf-Xtkybai disease (M91.10) Active confirmed Problem Acute nontraumatic kidney injury (226347952662188) Acute nontraumatic kidney injury (N17.9) Active confirmed Problem 600692773 Prediabetes (R73.03) Active confirmed Problem 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 90 [facility] [address] [place] [address] 04/15/2024 Nicola Hoy Flank pain R10.9 and Constipation K59.[address] [address] 07/15/2024 Nicola Hoy Frequent urination R35.0 ; Acute UTI (urinary tract infection) N39.0 and Eczema L30.9 [facility] [address] [place] [address] 07/22/2024 Nicola Hoy Acute cystitis witho ut hematuria N30.00 [facility] [address] [place] [address] 12/03/2024 Nicola Hoy Acute UTI N39.0 ; Constipation K59.00 and Well adult Z00.00 [facility] [address] [place] [address] 2024 Nicola Hoy Abnormal x-ray of paranasal sinus R93.0 [facility] [address] [place] [address] 02/02/2024 Nicola Hoy Acute sinusitis J01. 90 [facility] [address] [place] [address] 02/15/2024 Brit Monteiro [facility] [address] [place] [address] 02/22/2024 Nicola Hoy Enlarged pituitary gland E23.6 [facility] [address] [place] [address] 03/15/2024 Nicola Hoy [facility] [address] [place] [address] 04/16/2024 Nicola Ho [facility] [address] [place] [address] 07/27/2024 Nicola Ho [facility] [address] [place] [address] 12/04/2024 Nicola Ho Hematuria R31.9 Assessments Encounter Date Diagnosis (ICD [...] 02/22/2024 Enlarged pituitary gland (ICD-10 - E23.6) 12/04/2024 Hematuria (ICD-10 - R31.9) 07/22/2024 Acute cystitis without hematuria (ICD-10 - N30.00) 12/03/2024 Acute UTI (ICD-10 - N39.0) 12/03/2024 Constipation (ICD-10 - K59.00) 12/03/2024 Well adult (ICD-10 - Z00.00) 07/15/2024 Eczema (ICD-10 - L30.9) Plan Of Treatment Pending Test Test Name Order Date CMP (COMPLETE METABOLIC PANEL) 4 UA (URINALYSIS, COMPLETE) 12/04/2024 HEMOGLOBIN A1C (GLYCO) 12/03/2024 INSULIN, TOTAL 12/03/2024 LIPID PANEL (CHOL/TRIG/HDL/LDL) 12/04/19 25 PSA, PROSTATE-SPECIFIC ANTIGEN 4 US Renals and Bladder 04/02/2023 T3 FREE, T4 FREE and TSH 06/09/2023 Urinalysis Microscopic 07/22/2024 Urine Culture 12/04/2024 FECAL OCCULT BLOOD 06/09/2023 MRI pituitary w/wo contrast 02/22/2024 CBC AUTO DIFF 06/09/2023 CULTURE URINE 07/22/2024 GLYCOHEMOGLOBIN A1C 06/09/2023 LIPID PROFILE 06/09/2023 CT SINUSES WO CON 2024 THYROID PANEL (T4/TSH/FREE T3) PSA, SCREENING 12/03/2024 CMP (COMP MET PLUMMER) w/eGFR CKD-EPI 2024 CBC WITH DIFF 12/03/2024 Insurance Providers Payer Name Payer Address Payer Phone Subscriber Number Group Number Insured Name Patient Relationship to Insured Coverage Start Date Coverage End Date MMO [employer] [address] [place] [address] [id number] [employer] Self - patient is the insured [...] Glaucoma H40.9 Migraine headache G43.909 Gynecomastia N62 Frgp-Tzvos-Jtmnulq disease M91.10 Headache, unspecified R51.9 Surgical History Surgery Date(Month/Year) Colonoscopy EGD
--- OUTSIDE RECORDS SUMMARY | 2024-12-17 09:20 | XMS_ITS | CCD ---
Author Organization [facility] Care Team Providers Care Industrial Specialist Name Role Phone Fer Feliz Primary Care [...] Unavailable Fer Feliz MD Primary Care Provider [phone] ALONDRASTREY Attending Unavailable HOY, FER M Referring Unavailable ALISON FREITAS Attending Unavailable TIMMIS, TREY H Referring Unavailable TIMMIS, TREY H Attending Unavailable TIMMIS, TREY H Referring Unavailable TIMMIS, TREY H Attending Unavailable HOY, FER M Referring Unavailable Fer Feliz MD Primary Care Provider [phone] Fer Feliz MD Primary Care Provider [phone] RADHA AVITIA I Attending Unavailable HOY, FER [...] Drug Allergy Unknown (qualifier value) General Surgery [place] (2 sources) Acetaminophen / HYDROcodone Drug Allergy 03-16-20 14 [facility] (5 sources) Penicillins; Translations: [PENICILLINS] Drug allergy (disorder) 03-16-20 14 [facility] (9 sources) Penicillins Drug Intolerance 06-12-19 [facility] (5 sources) Penicillins Propensity to adverse reactions [...] Date: 04/12/22 Status: Ordered polyethylene glycol 3350 95486 mg powder for oral solution (10 sources) [...] 4 11-19-2023 Chronic Other 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; 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] Onset: 3 Episodic Other bone disease and musculoskeletal deformities (12 sources) Juvenile osteochondrosis of lower extremity; 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], unspecified leg] Onset: 4 09-12-2021 Chronic Other [...] sensorineural hearing loss at 6K Hz only [facility] CT ABDOMEN AND PELVIS WO CON Ton [...] Flakito Onofre on 10/26/2023 10:06 AM Normal [facility] URN MACROSCOPIC NURon 2023 BILIRUBIN ALEJANDRA Negative Normal NEG [facility] Comment on above: Performed By: #### N UM #### [facility] ([id number]) [address] [place] [address], [place] [address] BLOOD/HGB ALEJANDRA Trace Abnormal NEG [facility] Comment on above: Performed By: #### N UM #### [facility] ([id number]) [address] [place] [address] [place] [address] GLUCOSE ALEJANDRA Negative Normal NEG [facility] Comment on above: Performed By: #### N UM #### [facility] ([id number]) [address] [place] [address] [place] [address] KETONES ALEJANDRA Negative Normal NEG [facility] Comment on above: Performed By: #### N UM #### [facility] ([id number]) [address] [place] [address] [place] [address] LEUKOCYTE ESTERASE ALEJANDRA Negative Normal NEG [facility] Comment on above: Performed By: #### N UM #### [facility] ([id number]) [address] [place] [address] [place] [address] NITRITE ALEJANDRA Negative Normal NEG [facility] Comment on above: Performed By: #### N UM #### [facility] ([id number]) [address] [place] [address] [place] [address] PH ALEJANDRA 5.5 Normal 5.0-8.5 [facility] Comment on above: Performed By: #### N UM #### [facility] ([id number]) [address] [place] [address] [place] [address] PROTEIN ALEJANDRA Negative Normal NEG [facility] Comment on above: Performed By: #### N UM #### [facility] ([id number]) [address] [place] [address] SPECIFIC GRAVITY ALEJANDRA 1.025 Normal 1.003-1 .03 5 [facility] Comment on above: Performed By: #### N UM #### [facility] ([id number]) [address] [place] [address] UROBILINOGEN ALEJANDRA 0.2 eu/dL Normal <1.[address] [facility] Comment on above: Performed By: #### N UM #### [facility] ([id number]) [address] [place] [address] POCT Urinalysis Auto, W/O Mi croscopyon 10-14-2023 External Poct Urine Bilirubin Negative [facility] External Poct Urine Blood Negative [facility] External Poct Urine Glucose Negative [facility] External Poct Urine Ketones Negative [facility] External Poct Urine Leukocyte Esterase Negative [facility] External Poct Urine Nitrite Negative [facility] External Poct Urine Ph 6.0 [facility] External Poct Urine Protein Negative [facility] External Poct Urine Specific [place] 1.030 [facility] External Poct Urine Urobilinogen 0.2 [facility] XR ABDOMEN AP 1 VWon 024 XR [...] Villa MD on 10/13/2023 1:14 PM Normal [facility] UA (MICROSCOPIC)on 4 CELLULAR CASTS 1 /lpf High 0 [facility] Comment on above: Performed By: #### U LACY #### [facility] ([id number]) [address] [place] [address] Hyaline casts LM Ql (Urine sed) 4 /lpf High 0-2 [facility] Comment on above: Performed By: #### U LACY #### [facility] ([id number]) [address], [address] [place] [address] MUCOUS PRESENT Abnormal NONE [facility] Comment on above: Performed By: #### U LACY #### [facility] ([id number]) [address] [place] [address] R.B.CELLS 1 /hpf Normal 0-5 [facility] Comment on above: Performed By: #### U LACY #### [facility] ([id number]) [address] [place] [address] SQUAMOUS EPITHELIUM 1 /hpf Normal 0-5 [facility] Comment on above: Performed By: #### U LACY #### [facility] ([id number]) [address] [place] [address] W.B.CELLS 1 /hpf Normal 0-5 [facility] Comment on above: Performed By: #### U LACY #### [facility] ([id number]) [address] [place] [address] POCT Urinalysis Auto, W/O Mi croscopyon 08-27-2023 External Poct Urine Bilirubin Negative [facility] External Poct Urine Blood Trace [facility] External Poct Urine Glucose Negative [facility] External Poct Urine Ketones Negative [facility] External Poct Urine Leukocyte Esterase Negative [facility] External Poct Urine Nitrite Negative [facility] External Poct Urine Ph 6.0 [facility] External Poct Urine Protein Negative [facility] External Poct Urine Specific [place] 1.025 [facility] External Poct Urine Urobilinogen 0.2 [facility] CBC W Auto Differential pane l (Bld)on 08-23-2023 % MID 6.2 % Normal [facility] Comment on above: Performed By: #### 5 7021-8 #### [facility] ([id number]) [address] [place], [place] [id number] ABSOLUTE MID 0.7 x10E9/L Normal 0.0-0.9 [facility] Comment on above: Performed By: #### 5 7021-8 #### [facility] ([id number]) [address] [place] [address] Erythrocyte distribution width (RBC) [Ratio] 12.8 % Normal 11.5-15.0 [facility] Comment on above: Performed By: #### 5 7021-8 #### [facility] ([id number]) [address] [place] [address] Granulocytes (Bld) [#/Vol] 7.1 10*3/uL Normal 1.5-7.2 [facility] Comment on above: Performed By: #### 5 7021-8 #### [facility] ([id number]) [address] [place] [address] Granulocytes/100 WBC (Bld) 71.0 % Normal [facility] Comment on above: Performed By: #### 5 7021-8 #### [facility] ([id number]) [address] [place], [place] [address] Hematocrit (Bld) [Volume fraction] 46.9 % Normal 39-50 [facility] Comment on above: Performed By: #### 5 7021-8 #### [facility] ([id number]) [address] [place] [address] Hemoglobin (Bld) [Mass/Vol] 15.9 g/dL Normal 13.0-17.0 [facility] Comment on above: Performed By: #### 5 7021-8 #### [facility] ([id number]) [address] [place] [address] Lymphocytes (Bld) [#/Vol] 2.3 10*3/uL Normal 1.0-3.5 [facility] Comment on above: Performed By: #### 5 7021-8 #### [facility] ([id number]) [address] [place] [address] Lymphocytes/100 WBC (Bld) 22.8 % Normal [facility] Comment on above: Performed By: #### 5 7021-8 #### [facility] ([id number]) [address] [place] [address] MCH (RBC) [Entitic mass] 30.0 pg Normal 27-34 [facility] Comment on above: Performed By: #### 5 7021-8 #### [facility] ([id number]) [address] [place] [address] MCHC (RBC) [Mass/Vol] 33.9 g/dL Normal 32-36 [facility] Comment on above: Performed By: #### 5 7021-8 #### [facility] ([id number]) [address] [place] [address] MCV (RBC) [Entitic vol] 89 fL Normal 80-100 [facility] Comment on above: Performed By: #### 5 7021-8 #### [facility] ([id number]) [address] [place] [address] Platelet mean volume (Bld) [Entitic vol] 8.8 fL Normal 7-12 [facility] Comment on above: Performed By: #### 5 7021-8 #### [facility] ([id number]) [address] [place] [address] Platelets (Bld) [#/Vol] 180 10*3/uL Normal 150-450 [facility] Comment on above: Performed By: #### 5 7021-8 #### [facility] ([id number]) [address] [place] [address] RBC 5.30 x10E12/L Normal 4.10-5.70 [facility] Comment on above: Performed By: #### 5 7021-8 #### [facility] ([id number]) [address] [place] [address] WBC (Bld) [#/Vol] 10.1 10*3/uL Normal 4.0-11.0 [facility] Comment on above: Performed By: #### 5 7021-8 #### [facility] ([id number]) [address] [place] [address] ABDOMEN AND PELVIS WO CON Ton [...] Bueno MD on 08/23/2023 6:54 PM Normal [facility] POC [id number] 08-23-2023 Chloride [Moles/Vol] 107 mmol/L Normal 98-109 [facility] Comment on above: Performed By: #### I BMP #### [facility] ([id number]) [address] [place] [address] CO2 [Moles/Vol] 24 mmol/L Normal 22-32 [facility] Comment on above: Performed By: #### I BMP #### [facility] ([id number]) [address] [place] [address] Creatinine [Mass/Vol] 1.0 mg/dL Normal 0.7-1.2 [facility] Comment on above: Result Comment: METH OD TRACEABLE TO IDMS STANDARD Performed By: #### I BMP #### [facility] ([id number]) [address] [place] [address] eGFR (CKD-EPI) NON-RACE DEPENDENT >90 Normal >59 [facility] Comment on above: Result Comment: Reported eGFR is based on the CKD-EPI 2020 equation that does not use a race coefficient. Performed By: #### I BMP #### [facility] ([id number]) [address] [place] [address] Glucose [Mass/Vol] 123 mg/dL High 65-99 [facility] Comment on above: Performed By: #### I BMP #### [facility] ([id number]) [address] [place] [address] PORTABLE ICA 4.5 mg/dL Normal 4.5-5.3 [facility] Comment on above: Performed By: #### I BMP #### [facility] ([id number]) [address] [place] [address] Potassium [Moles/Vol] 4.0 mmol/L Normal 3.5-5.0 [facility] Comment on above: Performed By: #### I BMP #### [facility] ([id number]) [address] [place] [address] Sodium [Moles/Vol] 141 mmol/L Normal 134-146 [facility] Comment on above: Performed By: #### I BMP #### [facility] ([id number]) [address] [place] [address] Urea nitrogen [Mass/Vol] 20 mg/dL Normal 6-23 [facility] Comment on above: Performed By: #### I BMP #### [facility] ([id number]) [address] [place] [address] URINE CULTUREon 08-23-2023 Bacteria identified Cx Nom (U) CULTURE RESULTS NO GROWTH AT <1000 CFU/mL Normal [facility] Comment on above: Performed By: #### 6 30-4 #### [facility] ([id number]) [address] [place] [address], [address] [place] [address] URN MACROSCOPIC NURon 2023 BILIRUBIN ALEJANDRA Negative Normal NEG [facility] Comment on above: Performed By: #### N UM #### [facility] ([id number]) [address] [place] [address] BLOOD/HGB ALEJANDRA Large Abnormal NEG [facility] Comment on above: Performed By: #### N UM #### [facility] ([id number]) [address] [place] [address] GLUCOSE ALEJANDRA Negative Normal NEG [facility] Comment on above: Performed By: #### N UM #### [facility] ([id number]) [address] [place] [address] KETONES ALEJANDRA Negative Normal NEG [facility] Comment on above: Performed By: #### N UM #### [facility] ([id number]) [address] [place] [address] LEUKOCYTE ESTERASE ALEJANDRA Trace Abnormal NEG [facility] Comment on above: Performed By: #### N UM #### [facility] ([id number]) [address] [place] [address] NITRITE ALEJANDRA Negative Normal NEG [facility] Comment on above: Performed By: #### N UM #### [facility] ([id number]) [address] [place] [address] PH ALEJANDRA 5.5 Normal 5.0-8.5 [facility] Comment on above: Performed By: #### N UM #### [facility] ([id number]) [address] [place] [address] PROTEIN ALEJANDRA 30 mg/dL Abnormal NEG [facility] Comment on above: Performed By: #### N UM #### [facility] ([id number]) [address] [place] [address] SPECIFIC GRAVITY ALEJANDRA 1.020 Normal 1.003-1 .03 5 [facility] Comment on above: Performed By: #### N UM #### [facility] ([id number]) [address] [place] [address] UROBILINOGEN ALEJANDRA 0.2 eu/dL Normal <1.1 [facility] Comment on above: Performed By: #### N UM #### [facility] ([id number]) [address] [place] [address] H. pylori Antigenon 12-08-19 23 H. pylori Antigen Specimen Description .FECES Direct Exam NEGATIVE Report Status FINAL 12/07/2022 Normal [facility] Comment on above: Performed By: #### F HPY #### [place] [address] Shellfish Checker: Eric Blood MD [facility] [address] [place] [address] Shellfish Checker: Alma Galicia MD CBC AUTO DIFFon 07-08-2022 BASO # 0.1 103/ul Normal 0.0-0.1 [facility] Comment on above: Performed By: #### P OCGLUC #### [facility] [address] [place] [address] Dr. Nayely Ferrer Basophils/100 WBC (Bld) 0.9 % Normal 0.2-2.0 [facility] Comment on above: Performed By: #### P OCGLUC #### [facility] [address] [place] [address] Dr. Nayely Ferrer EO # 0.1 103/ul Normal 0.0-0.7 [facility] Comment on above: Performed By: #### P OCGLUC #### [facility] [address] [place] [address] Dr. Nayely Ferrer Eosinophils/100 WBC (Bld) 2.2 % Normal 0.9-7.0 [facility] Comment on above: Performed By: #### P OCGLUC #### [facility] [address] [place] [address] Dr. Nayely Ferrer Erythrocyte distribution width (RBC) [Ratio] 13.7 % Normal 11.0-15.0 [facility] Comment on above: Performed By: #### P OCGLUC #### [facility] [address] [place] [address] Dr. Nayely Ferrer Hematocrit (Bld) [Volume fraction] 42.3 % Normal 42.0-54.0 [facility] Comment on above: Performed By: #### P OCGLUC #### [facility] [address] [place] [address] Dr. Nayely Ferrer Hemoglobin (Bld) [Mass/Vol] 13.8 g/dL Critically low 14.0-18.0 [facility] Comment on above: Performed By: #### P OCGLUC #### [facility] [address] [place] [address] Dr. Nayely Ferrer IG # 0.01 10e3/ul Normal 0.00-0.03 [facility] Comment on above: Performed By: #### P OCGLUC #### [facility] [address] [place] [address] Dr. Nayely Ferrer IG % 0.2 % Normal 0.0-0.5 [facility] Comment on above: Performed By: #### P OCGLUC #### [facility] [address] [place] [address] Dr. Nayely Ferrer LYMPH # 1.8 103/ul Normal 1.2-3.8 [facility] Comment on above: Performed By: #### P OCGLUC #### [facility] [address] [place] [address] Dr. Nayely Frerer Lymphocytes/100 WBC (Bld) 28.0 % Normal 20.5-60.0 [facility] Comment on above: Performed By: #### P OCGLUC #### [facility] [address] [place] [address] Dr. Nayely Ferrer MANUAL DIFF REQ NO Normal [facility] Comment on above: Performed By: #### P OCGLUC #### [facility] [address] [place] [address] Dr. Nayely Ferrer MCH (RBC) [Entitic mass] 28.7 pg Normal 25.9-34.0 [facility] Comment on above: Performed By: #### P OCGLUC #### [facility] [address] [place] [address] Dr. Nayely Ferrer MCHC (RBC) [Mass/Vol] 32.6 g/dL Normal 29.9-35.2 [facility] Comment on above: Performed By: #### P OCGLUC #### [facility] [address] [place] [address] Dr. Nayely Ferrer MCV (RBC) [Entitic vol] 87.9 fL Normal 80.0-94.0 [facility] Comment on above: Performed By: #### P OCGLUC #### [facility] [address] [place] [address] Dr. Nayely Ferrer MONO # 0.3 103/ul Normal 0.3-0.8 [facility] Comment on above: Performed By: #### P OCGLUC #### [facility] [address] [place] [address] Dr. Nayely Ferrer Monocytes/100 WBC (Bld) 4.9 % Normal 1.7-12.0 [facility] Comment on above: Performed By: #### P OCGLUC #### [facility] [address] [place] [address] Dr. Nayely Ferrer NEUT # 4.2 103/ul Normal 1.4-6.5 [facility] Comment on above: Performed By: #### P OCGLUC #### [facility] [address] [place] [address] Dr. Nayely Ferrer Neutrophils/100 WBC (Bld) 63.8 % Normal 43.0-75.0 [facility] Comment on above: Performed By: #### P OCGLUC #### [facility] [address] [place] [address] Dr. Nayely Ferrer Platelet mean volume (Bld) [Entitic vol] 9.3 fL Critically low 9.5-13.5 [facility] Comment on above: Performed By: #### P OCGLUC #### [facility] [address] [place] [address] Dr. Nayely Ferrer PLT 207 103/ul Normal 150-450 [facility] Comment on above: Performed By: #### P OCGLUC #### [facility] [address] [place] [address] Dr. Nayely Ferrer RBC 4.81 106/ul Normal 4.70-6.10 [facility] Comment on above: Performed By: #### P OCGLUC #### [facility] [address] [place] [address] Dr. Nayely Ferrer WBC 6.5 103/ul Normal 4.0-11.0 [facility] Comment on above: Performed By: #### P OCGLUC #### [facility] [address] [place] [address] Dr. Nayely Ferrer CULTURE URINEon 07-08-2022 CULTURE URINE Culture Observations : LIGHT GROWTH OF MIXED SKIN HONG. NO POTENTIAL PATHOGENS SEEN. Normal [facility] Comment on above: Performed By: #### U RCX #### [facility] [address] [place] [address] Dr. Nayely Ferrer IRONon 07-08-2022 Iron [Mass/Vol] 79.0 ug/dL Normal 65.0-175.0 [facility] Comment on above: Performed By: #### P OCGLUC #### [facility] [address] [place] [address] Dr. Nayely Ferrer PROF 14(COMP METB)on 023 Albumin [Mass/Vol] 3.5 g/dL Normal 3.4-5.0 [facility] Comment on above: Performed By: #### P OCGLUC #### [facility] [address] [place] [address] Dr. Nayely Ferrer Albumin/Globulin [Mass ratio] 0.7 {ratio} Normal [facility] Comment on above: Performed By: #### P OCGLUC #### [facility] [address] [place] [address] Dr. Nayely Ferrer ALP [Catalytic activity/Vol] 44 U/L Critically low 46-116 [facility] Comment on above: Performed By: #### P OCGLUC #### [facility] [address] [place] [address] Dr. Nayely Ferrer ALT [Catalytic activity/Vol] 34 U/L Normal 16-63 [facility] Comment on above: Performed By: #### P OCGLUC #### [facility] [address] [place] [address] Dr. Nayely Ferrer Anion gap [Moles/Vol] 12.1 mmol/L Normal [facility] Comment on above: Performed By: #### P OCGLUC #### [facility] [address] [place] [address] Dr. Nayely Ferrer AST [Catalytic activity/Vol] 33 U/L Normal 15-37 [facility] Comment on above: Performed By: #### P OCGLUC #### [facility] [address] [place] [address] Dr. Nayely Ferrer Bilirubin [Mass/Vol] 0.5 mg/dL Normal 0.2-1.0 [facility] Comment on above: Performed By: #### P OCGLUC #### [facility] [address] [address] [address] Nayely Ferrer Calcium [Mass/Vol] 9.1 mg/dL Normal 8.5-10.1 [facility] Comment on above: Performed By: #### P OCGLUC #### [facility] [address] [address] [address] Nayely Ferrer Chloride [Moles/Vol] 104 mmol/L Normal 98-107 [facility] Comment on above: Performed By: #### P OCGLUC #### [facility] Laboratory [address] [place] [address] Dr. Nayely Ferrer CO2 [Moles/Vol] 27.4 mmol/L Normal 21.0-32.0 [facility] Comment on above: Performed By: #### P OCGLUC #### [facility] [address] [address] [address] Nayely Ferrer Creatinine [Mass/Vol] 1.18 mg/dL Normal 0.70-1.30 [facility] Comment on above: Performed By: #### P OCGLUC #### [facility] [address] [place] [address] Dr. Nayely Ferrer EGFR-AF NIGERIEN >60 Normal >=60 [facility] Comment on above: Performed By: #### P OCGLUC #### [facility] [address] [place] [address] Dr. Nayely Ferrer EGFR-NON AF NIGERIEN >60 Normal >=60 [facility] Comment on above: Performed By: #### P OCGLUC #### [facility] [address] [address] [address] Nayely Ferrer Globulin (S) [Mass/Vol] 4.7 g/dL Normal [facility] Comment on above: Performed By: #### P OCGLUC #### [facility] [address] [place] [address] Dr. Nayely Ferrer Glucose [Mass/Vol] 126 mg/dL Critically high 74-[address] [facility] Comment on above: Performed By: #### P OCGLUC #### [facility] [address] [address] [address] Nayely Ferrer Potassium [Moles/Vol] 3.5 mmol/L Normal 3.5-5.1 [facility] Comment on above: Performed By: #### P OCGLUC #### [facility] [address] [address] [address] Nayely Ferrer Protein [Mass/Vol] 8.2 g/dL Normal 6.4-8.2 [facility] Comment on above: Performed By: #### P OCGLUC #### [facility] [address] [address] [address] Nayely Ferrer Sodium [Moles/Vol] 140 mmol/L Normal 136-145 [facility] Comment on above: Performed By: #### P OCGLUC #### [facility] [address] [address] [address] Nayely Ferrer Urea nitrogen [Mass/Vol] 11.0 mg/dL Normal 7.0-18.0 [facility] Comment on above: Performed By: #### P OCGLUC #### [facility] [address] [address] [address] Nayely Ferrer Urea nitrogen/Creatinine [Mass ratio] 9.3 mg/mg Normal [facility] Comment on above: Performed By: #### P OCGLUC #### [facility] [address] [address] [address] Nayely Ferrer UA RANDOM W/MICROSCOPICon BACTERIA TRACE Abnormal NONE SEEN [facility] Comment on above: Performed By: #### P OCGLUC #### [facility] [address] [address] [address] Nayely Ferrer Bilirubin Ql (U) Negative Normal NEGATIVE [facility] Comment on above: Performed By: #### P OCGLUC #### [facility] [address] [address] [address] Nayely Ferrer CAST NONE SEEN Normal NONE SEEN [facility] Comment on above: Performed By: #### P OCGLUC #### [facility] [address] [address] [address] Nayely Ferrer Clarity (U) CLEAR Normal CLEAR [facility] Comment on above: Performed By: #### P OCGLUC #### [facility] [address] [place] [address] Dr. Nayely Ferrer Color (U) LT. YELLOW Normal YELLOW [facility] Comment on above: Performed By: #### P OCGLUC #### [facility] [address] [place] [address] Dr. Nayely Ferrer Crystals LM Nom (Urine sed) NONE SEEN Normal NONE SEEN [facility] Comment on above: Performed By: #### P OCGLUC #### [facility] [address] [place] [address] Dr. Nayely Ferrer Epithelial cells LM Ql (Urine sed) RARE Normal NONE SEEN /RARE [facility] Comment on above: Performed By: #### P OCGLUC #### [facility] [address] [place] [address] Dr. Nayely Ferrer Glucose Ql (U) >1000 Abnormal NEGATIVE [facility] Comment on above: Performed By: #### P OCGLUC #### [facility] [address] [place] [address] Dr. Nayely Ferrer Hemoglobin Ql (U) Negative Normal NEGATIVE [facility] Comment on above: Performed By: #### P OCGLUC #### [facility] [address] [place] [address] Dr. Nayely Ferrer Ketones Ql (U) TRACE Abnormal NEGATIVE [facility] Comment on above: Performed By: #### P OCGLUC #### [facility] [address] [place] [address] Dr. Nayely Ferrer LEUKOCYTES Negative Normal NEGATIVE [facility] Comment on above: Performed By: #### P OCGLUC #### [facility] [address] [place] [address] Dr. Nayely Ferrer MUCOUS NONE SEEN Normal NONE SEEN [facility] Comment on above: Performed By: #### P OCGLUC #### [facility] [address] [place] [address] Dr. Nayely Ferrer Nitrite Ql (U) Negative Normal NEGATIVE [facility] Comment on above: Performed By: #### P OCGLUC #### [facility] [address] [address] [address] Nayely Ferrer pH (U) 5.5 [pH] Normal 5-9 [facility] Comment on above: Performed By: #### P OCGLUC #### [facility] [address] [place] [address] Dr. Nayely Ferrer RBC 0-2 Normal 0-2 [facility] Comment on above: Performed By: #### P OCGLUC #### [facility] [address] [place] [address] Dr. Nayely Ferrer SPEC GRAVITY 1.015 Normal 1.005-<=1. 025 [facility] Comment on above: Performed By: #### P OCGLUC #### [facility] [address] [place] [address] Dr. Nayely Ferrer UA PROTEIN TRACE Normal NEGATIVE/ TRACE [facility] Comment on above: Performed By: #### P OCGLUC #### [facility] [address] [place] [address] Dr. Nayely Ferrer Urobilinogen Qn (U) 0.2 {Ced'U}/dL Normal 0.2 - 1. 0 [facility] Comment on above: Performed By: #### P OCGLUC #### [facility] [address] [place] [address] Dr. Nayely Ferrer WBC 2-5 Abnormal NONE SEEN [facility] Comment on above: Performed By: #### P OCGLUC #### [facility] [address] [place] [address] Dr. Nayely Ferrer CULTURE BLOODon 06-23-2022 Microscopic [...] C Trimethoprim/Sulfamethoxazol e >=320 R C Normal [facility] Comment on above: Performed By: #### P OCGLUC #### [facility] [address] [place] [address] Dr. Nayely Ferrer CBC AUTO DIFFon 06-20-2022 BASO # 0.0 103/ul Normal 0.0-0.1 [facility] Comment on above: Performed By: #### P OCGLUC #### [facility] [address] [place] [address] Dr. Nayely Ferrer Basophils/100 WBC (Bld) 0.3 % Normal 0.2-2.0 [facility] Comment on above: Performed By: #### P OCGLUC #### [facility] [address] [place] [address] Dr. Nayely Ferrer EO # 0.1 103/ul Normal 0.0-0.7 [facility] Comment on above: Performed By: #### P OCGLUC #### [facility] [address] [place] [address] Dr. Nayely Ferrer Eosinophils/100 WBC (Bld) 0.6 % Critically low 0.9-7.0 [facility] Comment on above: Performed By: #### P OCGLUC #### [facility] [address] [place] [address] Dr. Nayely Ferrer Erythrocyte distribution width (RBC) [Ratio] 13.8 % Normal 11.0-15.0 [facility] Comment on above: Performed By: #### P OCGLUC #### [facility] [address] [place] [address] Dr. Nayely Ferrer Hematocrit (Bld) [Volume fraction] 32.4 % Critically low 42.0-54.0 [facility] Comment on above: Performed By: #### P OCGLUC #### [facility] [address] [place], [place] [id number] Dr. Nayely Ferrer Hemoglobin (Bld) [Mass/Vol] 10.9 g/dL Critically low 14.0-18.0 [facility] Comment on above: Performed By: #### P OCGLUC #### [facility] [address] [place] [address] Dr. Nayely Ferrer IG # 0.08 10e3/ul Critically high 0.00-0.03 [facility] Comment on above: Performed By: #### P OCGLUC #### [facility] [address] [place] [address] Dr. Nayely Ferrer IG % 0.8 % Critically high 0.0-0.5 [facility] Comment on above: Performed By: #### P OCGLUC #### [facility] [address] [place] [address] Dr. Nayely Ferrer LYMPH # 1.0 103/ul Critically low 1.2-3.8 [facility] Comment on above: Performed By: #### P OCGLUC #### [facility] [address] [place] [address] Dr. Nayely Ferrer Lymphocytes/100 WBC (Bld) 9.7 % Critically low 20.5-60.0 [facility] Comment on above: Performed By: #### P OCGLUC #### [facility] [address] [place] [address] Dr. Nayely Ferrer MANUAL DIFF REQ NO Normal [facility] Comment on above: Performed By: #### P OCGLUC #### [facility] [address] [address] [address] Nayely Ferrer MCH (RBC) [Entitic mass] 29.5 pg Normal 25.9-34.0 [facility] Comment on above: Performed By: #### P OCGLUC #### [facility] [address] [place] [address] Dr. Nayely Ferrer MCHC (RBC) [Mass/Vol] 33.6 g/dL Normal 29.9-35.2 [facility] Comment on above: Performed By: #### P OCGLUC #### [facility] [address] [place] [address] Dr. Nayely Ferrer MCV (RBC) [Entitic vol] 87.6 fL Normal 80.0-94.0 [facility] Comment on above: Performed By: #### P OCGLUC #### [facility] [address] [address] [address] Nayely Ferrer MONO # 0.5 103/ul Normal 0.3-0.8 [facility] Comment on above: Performed By: #### P OCGLUC #### [facility] [address] [address] [address] Nayely Ferrer Monocytes/100 WBC (Bld) 4.9 % Normal 1.7-12.0 [facility] Comment on above: Performed By: #### P OCGLUC #### [facility] [address] [place] [address] Dr. Nayely Ferrer NEUT # 8.9 103/ul Critically high 1.4-6.5 [facility] Comment on above: Performed By: #### P OCGLUC #### [facility] [address] [place] [address] Dr. Nyaely Ferrer Neutrophils/100 WBC (Bld) 83.7 % Critically high 43.0-75.0 [facility] Comment on above: Performed By: #### P OCGLUC #### [facility] [address] [place] [address] Dr. Nayely Ferrer Platelet mean volume (Bld) [Entitic vol] 9.9 fL Normal 9.5-13.5 [facility] Comment on above: Performed By: #### P OCGLUC #### [facility] [address] [place] [address] Dr. Nayely Ferrer PLT 147 103/ul Critically low 150-450 [facility] Comment on above: Performed By: #### P OCGLUC #### [facility] [address] [address] [address] Nayely Ferrer RBC 3.70 106/ul Critically low 4.70-6.10 [facility] Comment on above: Performed By: #### P OCGLUC #### [facility] [address] [place] [address] Dr. Nayely Ferrer WBC 10.7 103/ul Normal 4.0-11.0 [facility] Comment on above: Performed By: #### P OCGLUC #### [facility] [address] [address] [address] Nayely Ferrer PROF CHEM 8 (BAS METB)on Anion gap [Moles/Vol] 15.4 mmol/L Normal [facility] Comment on above: Performed By: #### P OCGLUC #### [facility] [address] [address] [address] Nayely Ferrer Calcium [Mass/Vol] 7.9 mg/dL Critically low 8.5-10.1 [facility] Comment on above: Performed By: #### P OCGLUC #### [facility] [address] [address] [address] Nayely Ferrer Chloride [Moles/Vol] 101 mmol/L Normal 98-107 [facility] Comment on above: Performed By: #### P OCGLUC #### [facility] [address] [address] [address] Nayely Ferrer CO2 [Moles/Vol] 22.0 mmol/L Normal 21.0-32.0 [facility] Comment on above: Performed By: #### P OCGLUC #### [facility] [address] [address] [address] Nayely Ferrer Creatinine [Mass/Vol] 1.42 mg/dL Critically high 0.70-1.30 [facility] Comment on above: Performed By: #### P OCGLUC #### [facility] [address] [address] [address] Nayely Ferrer EGFR-AF NIGERIEN >60 Normal >=60 [facility] Comment on above: Performed By: #### P OCGLUC #### [facility] [address] [address] [address] Nayely Ferrer EGFR-NON AF NIGERIEN 54 mL/min/1.73m2 Critically low >=60 [facility] Comment on above: Performed By: #### P OCGLUC #### [facility] [address] [address] [address] Nayely Ferrer Glucose [Mass/Vol] 188 mg/dL Critically high 74-[address] [facility] Comment on above: Performed By: #### P OCGLUC #### [facility] [address] [address] [address] Nyaely Ferrer Potassium [Moles/Vol] 3.4 mmol/L Critically low 3.5-5.1 [facility] Comment on above: Performed By: #### P OCGLUC #### [facility] [address] [place] [address] Dr. Nayely Ferrer Sodium [Moles/Vol] 135 mmol/L Critically low 136-145 [facility] Comment on above: Performed By: #### P OCGLUC #### [facility] [address] [place] [address] Dr. Nayely Ferrer Urea nitrogen [Mass/Vol] 19.0 mg/dL Critically high 7.0-18.0 [facility] Comment on above: Performed By: #### P OCGLUC #### [facility] [address] [place] [address] Dr. Nayely Ferrer Urea nitrogen/Creatinine [Mass ratio] 13.4 mg/mg Normal [facility] Comment on above: Performed By: #### P OCGLUC #### [facility] [address] [place] [address] Dr. Nayely Ferrer CBC AUTO DIFFon 06-19-2022 BASO # 0.0 103/ul Normal 0.0-0.1 [facility] Comment on above: Performed By: #### P OCGLUC #### [facility] [address] [place] [address] Dr. Nayely Ferrer Basophils/100 WBC (Bld) 0.2 % Normal 0.2-2.0 [facility] Comment on above: Performed By: #### P OCGLUC #### [facility] [address] [place] [address] Dr. Nayely Ferrer EO # 0.0 103/ul Normal 0.0-0.7 [facility] Comment on above: Performed By: #### P OCGLUC #### [facility] [address] [address] [address] Nayely Ferrer Eosinophils/100 WBC (Bld) 0.4 % Critically low 0.9-7.0 [facility] Comment on above: Performed By: #### P OCGLUC #### [facility] [address] [place] [address] Dr. Nayely Ferrer Erythrocyte distribution width (RBC) [Ratio] 13.5 % Normal 11.0-15.0 [facility] Comment on above: Performed By: #### P OCGLUC #### [facility] [address] [place] [address] Dr. Nayely Ferrer Hematocrit (Bld) [Volume fraction] 35.2 % Critically low 42.0-54.0 [facility] Comment on above: Performed By: #### P OCGLUC #### [facility] [address] [place] [address] Dr. Nayely Ferrer Hemoglobin (Bld) [Mass/Vol] 11.9 g/dL Critically low 14.0-18.0 [facility] Comment on above: Performed By: #### P OCGLUC #### [facility] [address] [place] [address] Dr. Nayely Ferrer IG # 0.07 10e3/ul Critically high 0.00-0.03 [facility] Comment on above: Performed By: #### P OCGLUC #### [facility] [address] [place] [address] Dr. Nayely Ferrer IG % 0.6 % Critically high 0.0-0.5 [facility] Comment on above: Performed By: #### P OCGLUC #### [facility] [address] [place] [address] Dr. Nayely Ferrer LYMPH # 0.7 103/ul Critically low 1.2-3.8 [facility] Comment on above: Performed By: #### P OCGLUC #### [facility] [address] [place] [address] Dr. Nayely Ferrer Lymphocytes/100 WBC (Bld) 6.7 % Critically low 20.5-60.0 [facility] Comment on above: Performed By: #### P OCGLUC #### [facility] [address] [place] [address] Dr. Nayely Ferrer MANUAL DIFF REQ NO Normal [facility] Comment on above: Performed By: #### P OCGLUC #### [facility] [address] [place] [address] Dr. Nayely Ferrer MCH (RBC) [Entitic mass] 29.5 pg Normal 25.9-34.0 [facility] Comment on above: Performed By: #### P OCGLUC #### [facility] [address] [place] [address] Dr. Nayely Ferrer MCHC (RBC) [Mass/Vol] 33.8 g/dL Normal 29.9-35.2 [facility] Comment on above: Performed By: #### P OCGLUC #### [facility] [address] [place] [address] Dr. Nayely Ferrer MCV (RBC) [Entitic vol] 87.3 fL Normal 80.0-94.0 [facility] Comment on above: Performed By: #### P OCGLUC #### [facility] [address] [place] [address] Dr. Nayely Ferrer MONO # 0.6 103/ul Normal 0.3-0.8 [facility] Comment on above: Performed By: #### P OCGLUC #### [facility] [address] [place] [address] Dr. Nayely Ferrer Monocytes/100 WBC (Bld) 5.6 % Normal 1.7-12.0 [facility] Comment on above: Performed By: #### P OCGLUC #### [facility] [address] [place] [address] Dr. Nayely Ferrer NEUT # 9.6 103/ul Critically high 1.4-6.5 [facility] Comment on above: Performed By: #### P OCGLUC #### [facility] [address] [place] [address] Dr. Nayely Ferrer Neutrophils/100 WBC (Bld) 86.5 % Critically high 43.0-75.0 [facility] Comment on above: Performed By: #### P OCGLUC #### [facility] [address] [address] [address] Nayely Ferrer Platelet mean volume (Bld) [Entitic vol] 9.6 fL Normal 9.5-13.5 [facility] Comment on above: Performed By: #### P OCGLUC #### [facility] [address] [place] [address] Dr. Nayely Ferrer PLT 133 103/ul Critically low 150-450 [facility] Comment on above: Performed By: #### P OCGLUC #### [facility] [address] [address] [address] Nayely Ferrer RBC 4.03 106/ul Critically low 4.70-6.10 [facility] Comment on above: Performed By: #### P OCGLUC #### [facility] [address] [place] [address] Dr. Nayely Ferrer WBC 11.1 103/ul Critically high 4.0-11.0 [facility] Comment on above: Performed By: #### P OCGLUC #### [facility] [address] [place] [address] Dr. Nayely Ferrer CULTURE BLOODon 06-19-2022 Microscopic [...] F Trimethoprim/Sulfamethoxazol e >=320 R F Normal [facility] Comment on above: Performed By: #### B [id number] #### [facility] [address] [place] [address] Dr. Nayely Ferrer CULTURE URINEon 06-19-2022 CULTURE [...] F Trimethoprim/Sulfamethoxazol e >=320 R F Normal [facility] Comment on above: Performed By: #### U RCX #### [facility] [address] [place] [address] Dr. Nayely Ferrer POINT OF CARE GLUCOSEon Glucose [Mass/Vol] 187 mg/dL Critically high [address] [place] [address] Comment on above: Performed By: #### P OCGLUC #### [facility] [address] [place] [address] Dr. Nayely Ferrer Glucose [Mass/Vol] 188 mg/dL Critically high [address] [place] [address] Comment on above: Performed By: #### P OCGLUC #### [facility] [address] [place] [address] Dr. Nayely Ferrer Glucose [Mass/Vol] 251 mg/dL Critically high [address] [place] [address] Comment on above: Performed By: #### P OCGLUC #### [facility] [address] [address] [address] Nayely Ferrer Glucose [Mass/Vol] 239 mg/dL Critically high [address] [place] [address] Comment on above: Performed By: #### P OCGLUC #### [facility] [address] [place] [address] Dr. Nayely Ferrer PROF CHEM 8 (BAS METB)on Anion gap [Moles/Vol] 16.0 mmol/L Normal [facility] Comment on above: Performed By: #### P OCGLUC #### [facility] [address] [place], [place] [id number] Dr. Nayely Ferrer Calcium [Mass/Vol] 8.3 mg/dL Critically low 8.5-10.1 [facility] Comment on above: Performed By: #### P OCGLUC #### [facility] [address] [address] [address] Nayely Ferrer Chloride [Moles/Vol] 100 mmol/L Normal 98-107 [facility] Comment on above: Performed By: #### P OCGLUC #### [facility] [address] [address] [address] Nayely Ferrer CO2 [Moles/Vol] 21.3 mmol/L Normal 21.0-32.0 [facility] Comment on above: Performed By: #### P OCGLUC #### [facility] [facility] [address] [place] [address] Dr. Nayely Ferrer Creatinine [Mass/Vol] 1.51 mg/dL Critically high 0.70-1.30 [facility] Comment on above: Performed By: #### P OCGLUC #### [facility] [address] [address] [address] Nayely Ferrer EGFR-AF NIGERIEN >60 Normal >=60 [facility] Comment on above: Performed By: #### P OCGLUC #### [facility] [address] [place] [address] Dr. Nayely Fererr EGFR-NON AF NIGERIEN 50 mL/min/1.73m2 Critically low >=60 [facility] Comment on above: Performed By: #### P OCGLUC #### [facility] [address] [address] [address] Nayely Ferrer Glucose [Mass/Vol] 237 mg/dL Critically high 74-106 [facility] Comment on above: Performed By: #### P OCGLUC #### [facility] [address] [address] [address] Nayely Ferrer Potassium [Moles/Vol] 3.3 mmol/L Critically low 3.5-5.1 [facility] Comment on above: Performed By: #### P OCGLUC #### [facility] [address] [address] [address] Nayely Ferrer Sodium [Moles/Vol] 134 mmol/L Critically low 136-145 [facility] Comment on above: Performed By: #### P OCGLUC #### [facility] [address] [address] [address] Nayely Ferrer Urea nitrogen [Mass/Vol] 20.0 mg/dL Critically high 7.0-18.0 [facility] Comment on above: Performed By: #### P OCGLUC #### [facility] [address] [place] [address] Dr. Nayely Ferrer Urea nitrogen/Creatinine [Mass ratio] 13.2 mg/mg Normal [facility] Comment on above: Performed By: #### P OCGLUC #### [facility] [address] [place] [address] Dr. Nayely Ferrer CBC AUTO DIFFon 06-18-2022 BASO # 0.0 103/ul Normal 0.0-0.1 [facility] Comment on above: Performed By: #### P OCGLUC #### [facility] [address] [place] [address] Dr. Nayeyl Ferrer Basophils/100 WBC (Bld) 0.3 % Normal 0.2-2.0 [facility] Comment on above: Performed By: #### P OCGLUC #### [facility] [address] [place] [address] Dr. Nayely Ferrer EO # 0.0 103/ul Normal 0.0-0.7 [facility] Comment on above: Performed By: #### P OCGLUC #### [facility] [address] [place] [address] Dr. Nayely Ferrer Eosinophils/100 WBC (Bld) 0.1 % Critically low 0.9-7.0 [facility] Comment on above: Performed By: #### P OCGLUC #### [facility] [address] [place] [address] Dr. Nayely Ferrer Erythrocyte distribution width (RBC) [Ratio] 13.4 % Normal 11.0-15.0 [facility] Comment on above: Performed By: #### P OCGLUC #### [facility] [address] [address] [address] Nayely Ferrer Hematocrit (Bld) [Volume fraction] 33.0 % Critically low 42.0-54.0 [facility] Comment on above: Performed By: #### P OCGLUC #### [facility] [address] [address] [address] Nayely Ferrer Hemoglobin (Bld) [Mass/Vol] 11.4 g/dL Critically low 14.0-18.0 [facility] Comment on above: Performed By: #### P OCGLUC #### [facility] [address] [place] [address] Dr. Nayely Ferrer IG # 0.06 10e3/ul Critically high 0.00-0.03 [facility] Comment on above: Performed By: #### P OCGLUC #### [facility] [address] [place] [address] Dr. Nayely Ferrer IG % 0.5 % Normal 0.0-0.5 [facility] Comment on above: Performed By: #### P OCGLUC #### [facility] [address] [place] [address] Dr. Nayely Ferrer LYMPH # 0.8 103/ul Critically low 1.2-3.8 [facility] Comment on above: Performed By: #### P OCGLUC #### [facility] [address] [place] [address] Dr. Nayely Ferrer Lymphocytes/100 WBC (Bld) 6.7 % Critically low 20.5-60.0 [facility] Comment on above: Performed By: #### P OCGLUC #### [facility] [address] [place] [address] Dr. Nayely Ferrer MANUAL DIFF REQ NO Normal [facility] Comment on above: Performed By: #### P OCGLUC #### [facility] [address] [place] [address] Dr. Nayely Ferrer MCH (RBC) [Entitic mass] 29.9 pg Normal 25.9-34.0 [facility] Comment on above: Performed By: #### P OCGLUC #### [facility] [address] [address] [address] Nayely Ferrer MCHC (RBC) [Mass/Vol] 34.5 g/dL Normal 29.9-35.2 [facility] Comment on above: Performed By: #### P OCGLUC #### [facility] [address] [address] [address] Nayely Ferrer MCV (RBC) [Entitic vol] 86.6 fL Normal 80.0-94.0 [facility] Comment on above: Performed By: #### P OCGLUC #### [facility] [address] [address] [address] Nayely Ferrer MONO # 0.7 103/ul Normal 0.3-0.8 [facility] Comment on above: Performed By: #### P OCGLUC #### [facility] [address] [place] [address] Dr. Nayely Ferrer Monocytes/100 WBC (Bld) 5.6 % Normal 1.7-12.0 [facility] Comment on above: Performed By: #### P OCGLUC #### [facility] [address] [place] [address] Dr. Nayely Ferrer NEUT # 10.4 103/ul Critically high 1.4-6.5 [facility] Comment on above: Performed By: #### P OCGLUC #### [facility] [address] [place] [address] Dr. Nayely Ferrer Neutrophils/100 WBC (Bld) 86.8 % Critically high 43.0-75.0 [facility] Comment on above: Performed By: #### P OCGLUC #### [facility] [address] [address] [address] Nayely Ferrer Platelet mean volume (Bld) [Entitic vol] 9.6 fL Normal 9.5-13.5 [facility] Comment on above: Performed By: #### P OCGLUC #### [facility] [address] [place] [address] Dr. Nayely Ferrer PLT 113 103/ul Critically low 150-450 [facility] Comment on above: Performed By: #### P OCGLUC #### [facility] [address] [address] [address] Nayely Ferrer RBC 3.81 106/ul Critically low 4.70-6.10 [facility] Comment on above: Performed By: #### P OCGLUC #### [facility] [address] [address] [address] Nayely Ferrer WBC 12.0 103/ul Critically high 4.0-11.0 [facility] Comment on above: Performed By: #### P OCGLUC #### [facility] [address] [address] [address] Nayely Ferrer CULTURE BLOODon 06-18-2022 Microscopic examination of blood, culture Culture Observations: NO GROWTH AT 5 DAYS. Isolate 1 [id number] Normal [facility] Comment on above: Performed By: #### B [id number] #### [facility] [address] [place] [address] Dr. Nayely Ferrer OCC BLD IMMUNOASSAYon 2022 OCCULT BLOOD Positive Abnormal NEGATIVE [facility] Comment on above: Performed By: #### P OCGLUC #### [facility] [address] [address] [address] Nayely Ferrer POINT OF CARE GLUCOSEon 05-23 Glucose [Mass/Vol] 233 mg/dL Critically high [address] [place] [address] Comment on above: Performed By: #### P OCGLUC #### [facility] [address] [address] [address] Nayely Ferrer Glucose [Mass/Vol] 260 mg/dL Critically high -106 [facility] Comment on above: Performed By: #### P OCGLUC #### [facility] [address] [place] [address] Dr. Nayely Ferrer Glucose [Mass/Vol] 223 mg/dL Critically high [address] [place] [address] Comment on above: Performed By: #### P OCGLUC #### [facility] [address] [place] [address] Dr. Nayely Ferrer Glucose [Mass/Vol] 266 mg/dL Critically high [facility] Comment on above: Performed By: #### P OCGLUC #### [facility] [address] [address] [address] Nayely Ferrer PROF CHEM 8 (BAS METB)on Anion gap [Moles/Vol] 14.4 mmol/L Normal [facility] Comment on above: Performed By: #### P OCGLUC #### [facility] [address] [address] [address] Nayely Ferrer Calcium [Mass/Vol] 8.1 mg/dL Critically low 8.5-10.1 [facility] Comment on above: Performed By: #### P OCGLUC #### [facility] [address] [address] [address] Nayely Ferrer Chloride [Moles/Vol] 100 mmol/L Normal 98-107 [facility] Comment on above: Performed By: #### P OCGLUC #### [facility] [address] [address] [address] Nayely Ferrer CO2 [Moles/Vol] 21.9 mmol/L Normal 21.0-32.0 [facility] Comment on above: Performed By: #### P OCGLUC #### [facility] [address] [address] [address] Nayely Ferrer Creatinine [Mass/Vol] 1.43 mg/dL Critically high 0.70-1.30 [facility] Comment on above: Performed By: #### P OCGLUC #### [facility] [address] [place] [address] Dr. Nayely Ferrer EGFR-AF NIGERIEN >60 Normal >=60 [facility] Comment on above: Performed By: #### P OCGLUC #### [facility] [address] [address] [address] Nayely Ferrer EGFR-NON AF NIGERIEN 53 mL/min/1.73m2 Critically low >=60 [facility] Comment on above: Performed By: #### P OCGLUC #### [facility] [address] [place] [address] Dr. Nayely Ferrer Glucose [Mass/Vol] 264 mg/dL Critically high 74-106 [facility] Comment on above: Performed By: #### P OCGLUC #### [facility] [address] [address] [address] Nayely Ferrer Potassium [Moles/Vol] 3.3 mmol/L Critically low 3.5-5.1 [facility] Comment on above: Performed By: #### P OCGLUC #### [facility] [address] [address] [address] Nayely Ferrer Sodium [Moles/Vol] 133 mmol/L Critically low 136-145 [facility] Comment on above: Performed By: #### P OCGLUC #### [facility] [address] [address] [address] Nayely Ferrer Urea nitrogen [Mass/Vol] 18.0 mg/dL Normal 7.0-18.0 [facility] Comment on above: Performed By: #### P OCGLUC #### [facility] [address] [address] [address] Nayely Ferrer Urea nitrogen/Creatinine [Mass ratio] 12.6 mg/mg Normal [facility] Comment on above: Performed By: #### P OCGLUC #### [facility] [address] [address] [address] Nayely Ferrer CBC AUTO DIFFon 06-17-2022 BASO # 0.0 103/ul Normal 0.0-0.1 [facility] Comment on above: Performed By: #### P OCGLUC #### [facility] [address] [address] [address] Nayely Ferrer Basophils/100 WBC (Bld) 0.3 % Normal 0.2-2.0 [facility] Comment on above: Performed By: #### P OCGLUC #### [facility] [address] [address] [address] Nayely Ferrer EO # 0.1 103/ul Normal 0.0-0.7 [facility] Comment on above: Performed By: #### P OCGLUC #### [facility] [address] [address] [address] Nayely Ferrer Eosinophils/100 WBC (Bld) 0.9 % Normal 0.9-7.0 [facility] Comment on above: Performed By: #### P OCGLUC #### [facility] [address] [address] [address] Nayely Ferrer Erythrocyte distribution width (RBC) [Ratio] 13.2 % Normal 11.0-15.0 [facility] Comment on above: Performed By: #### P OCGLUC #### [facility] [address] [place] [address] Dr. Nayely Ferrer Hematocrit (Bld) [Volume fraction] 37.1 % Critically low 42.0-54.0 [facility] Comment on above: Performed By: #### P OCGLUC #### [facility] [address] [place] [address] Dr. Nayely Ferrer Hemoglobin (Bld) [Mass/Vol] 12.5 g/dL Critically low 14.0-18.0 [facility] Comment on above: Performed By: #### P OCGLUC #### [facility] [address] [place] [address] Dr. Nayely Ferrer IG # 0.16 10e3/ul Critically high 0.00-0.03 [facility] Comment on above: Performed By: #### P OCGLUC #### [facility] [address] [place] [address] Dr. Nayely Ferrer IG % 1.1 % Critically high 0.0-0.5 [facility] Comment on above: Performed By: #### P OCGLUC #### [facility] [address] [place] [address] Dr. Nayely Ferrer LYMPH # 0.8 103/ul Critically low 1.2-3.8 [facility] Comment on above: Performed By: #### P OCGLUC #### [facility] [address] [place] [address] Dr. Nayely Ferrer Lymphocytes/100 WBC (Bld) 5.5 % Critically low 20.5-60.0 [facility] Comment on above: Performed By: #### P OCGLUC #### [facility] [address] [place] [address] Dr. Nayely Ferrer MANUAL DIFF REQ NO Normal [facility] Comment on above: Performed By: #### P OCGLUC #### [facility] [address] [address] [address] Nayely Ferrer MCH (RBC) [Entitic mass] 29.5 pg Normal 25.9-34.0 [facility] Comment on above: Performed By: #### P OCGLUC #### [facility] [address] [place] [address] Dr. Nayely Ferrer MCHC (RBC) [Mass/Vol] 33.7 g/dL Normal 29.9-35.2 [facility] Comment on above: Performed By: #### P OCGLUC #### [facility] [address] [place] [address] Dr. Nayely Ferrer MCV (RBC) [Entitic vol] 87.5 fL Normal 80.0-94.0 [facility] Comment on above: Performed By: #### P OCGLUC #### [facility] [address] [place] [address] Dr. Nayely Ferrer MONO # 0.8 103/ul Normal 0.3-0.8 [facility] Comment on above: Performed By: #### P OCGLUC #### [facility] [address] [place] [address] Dr. Nayely Ferrer Monocytes/100 WBC (Bld) 5.3 % Normal 1.7-12.0 [facility] Comment on above: Performed By: #### P OCGLUC #### [facility] [address] [place] [address] Dr. Nayely Ferrer NEUT # 12.7 103/ul Critically high 1.4-6.5 [facility] Comment on above: Performed By: #### P OCGLUC #### [facility] [address] [place] [address] Dr. Nayely Ferrer Neutrophils/100 WBC (Bld) 86.9 % Critically high 43.0-75.0 [facility] Comment on above: Performed By: #### P OCGLUC #### [facility] [address] [place] [address] Dr. Nayely Ferrer Platelet mean volume (Bld) [Entitic vol] 9.6 fL Normal 9.5-13.5 [facility] Comment on above: Performed By: #### P OCGLUC #### [facility] [address] [address] [address] Nayely Ferrer PLT 133 103/ul Critically low 150-450 [facility] Comment on above: Performed By: #### P OCGLUC #### [facility] [address] [address] [address] Nayely Ferrer RBC 4.24 106/ul Critically low 4.70-6.10 [facility] Comment on above: Performed By: #### P OCGLUC #### [facility] [address] [address] [address] Nayely Ferrer WBC 14.7 103/ul Critically high 4.0-11.0 [facility] Comment on above: Performed By: #### P OCGLUC #### [facility] [address] [place] [address] Dr. Nayely Ferrer DRUG SCREEN RAPID (URINE)on 06-17-2022 AMP Negative Normal NEGATIVE [facility] Comment on above: Performed By: #### P OCGLUC #### [facility] [address] [address] [address] Nayely Ferrer BAR Negative Normal NEGATIVE [facility] Comment on above: Performed By: #### P OCGLUC #### [facility] [address] [place] [address] Dr. Nayely Ferrer BUP Negative Normal NEGATIVE [facility] Comment on above: Performed By: #### P OCGLUC #### [facility] [address] [place] [address] Dr. Nayely Ferrer BZO Negative Normal NEGATIVE [facility] Comment on above: Performed By: #### P OCGLUC #### [facility] [address] [place] [address] Dr. Nayely Ferrer JOSE MANUEL Negative Normal NEGATIVE [facility] Comment on above: Performed By: #### P OCGLUC #### [facility] [address] [place] [address] Dr. Nayely Ferrer CUT-OFFS SEE BELOW Normal [facility] Comment on above: Result Comment: AMP [...] ng/mL Performed By: #### P OCGLUC #### [facility] [address] [place] [address] Dr. Nayely Ferrer DRUG CUT HEADER DRUG CLASS TEST SYST EM CUT-OFF CONCENTRATIONS ARE FOLLOWS: Normal [facility] Comment on above: Performed By: #### P OCGLUC #### [facility] [address] [place] [address] Dr. Nayely Ferrer mAMP Negative Normal NEGATIVE [facility] Comment on above: Performed By: #### P OCGLUC #### [facility] [address] [place] [address] Dr. Nayely Ferrer MTD Negative Normal NEGATIVE [facility] Comment on above: Performed By: #### P OCGLUC #### [facility] [address] [place] [address] Dr. Nayely Ferrer OPI Negative Normal NEGATIVE [facility] Comment on above: Performed By: #### P OCGLUC #### [facility] [address] [place] [address] Dr. Nayely Ferrer OXY Negative Normal NEGATIVE [facility] Comment on above: Performed By: #### P OCGLUC #### [facility] [address] [place] [address] Dr. Nayely Ferrer PCP Negative Normal NEGATIVE [facility] Comment on above: Performed By: #### P OCGLUC #### [facility] [address] [place] [address] Dr. Nayely Ferrer PPX Negative Normal NEGATIVE [facility] Comment on above: Performed By: #### P OCGLUC #### [facility] [address] [address] [address] Nayely Ferrer TCA Negative Normal NEGATIVE [facility] Comment on above: Performed By: #### P OCGLUC #### [facility] [address] [address] [address] Nayely Ferrer THC Negative Normal NEGATIVE [facility] Comment on above: Performed By: #### P OCGLUC #### [facility] [address] [address] [address] Nayely Ferrer GENTAMICIN RANDOMon 06-17-19 23 GENTAMICIN 3.6 ug/mL Normal [facility] Comment on above: Performed By: #### P OCGLUC #### [facility] [address] [address] [address] Nayely Ferrer POINT OF CARE GLUCOSEon 05-23 Glucose [Mass/Vol] 307 mg/dL Critically high [facility] Comment on above: Performed By: #### P OCGLUC #### [facility] [address] [address] [address] Nayely Ferrer Glucose [Mass/Vol] 290 mg/dL Critically high [address] [place] [address] Comment on above: Performed By: #### P OCGLUC #### [facility] [address] [address] [address] Nayely Ferrer Glucose [Mass/Vol] 287 mg/dL Critically high [address] [place] [address] Comment on above: Performed By: #### P OCGLUC #### [facility] [address] [address] [address] Nayely Ferrer PROF CHEM 8 (BAS METB)on Anion gap [Moles/Vol] 15.4 mmol/L Normal [facility] Comment on above: Performed By: #### P OCGLUC #### [facility] [address] [address] [address] Nayely Ferrer Calcium [Mass/Vol] 8.2 mg/dL Critically low 8.5-10.1 [facility] Comment on above: Performed By: #### P OCGLUC #### [facility] [address] [address] [address] Nayely Ferrer Chloride [Moles/Vol] 97 mmol/L Critically low 98-107 [facility] Comment on above: Performed By: #### P OCGLUC #### [facility] [address] [address] [address] Nayely Ferrer CO2 [Moles/Vol] 23.2 mmol/L Normal 21.0-32.0 [facility] Comment on above: Performed By: #### P OCGLUC #### [facility] [address] [address] [address] Nayely Ferrer Creatinine [Mass/Vol] 1.36 mg/dL Critically high 0.70-1.30 [facility] Comment on above: Performed By: #### P OCGLUC #### [facility] [address] [address] [address] Nayely Ferrer EGFR-AF NIGERIEN >60 Normal >=60 [facility] Comment on above: Performed By: #### P OCGLUC #### [facility] [address] [address] [address] Nayely Ferrer EGFR-NON AF NIGERIEN 57 mL/min/1.73m2 Critically low >=60 [facility] Comment on above: Performed By: #### P OCGLUC #### [facility] [address] [address] [address] Nayely Ferrer Glucose [Mass/Vol] 283 mg/dL Critically high 74-106 [facility] Comment on above: Performed By: #### P OCGLUC #### [facility] [address] [address] [address] Nayely Ferrer Potassium [Moles/Vol] 3.6 mmol/L Normal 3.5-5.1 [facility] Comment on above: Performed By: #### P OCGLUC #### [facility] [address] [address] Dr. Nayely Ferrer Sodium [Moles/Vol] 132 mmol/L Critically low 136-145 Th [facility] Comment on above: Performed By: #### P OCGLUC #### [facility] [address] [place] [address] Dr. Nayely Ferrer Urea nitrogen [Mass/Vol] 15.0 mg/dL Normal 7.0-18.0 [facility] Comment on above: Performed By: #### P OCGLUC #### [facility] [address] [place] [address] Dr. Nayely Ferrer Urea nitrogen/Creatinine [Mass ratio] 11.0 mg/mg Normal [facility] Comment on above: Performed By: #### P OCGLUC #### [facility] [address] [place] [address] Dr. Nayely Ferrer BLOOD CULTURE ID PANELon A. baumannii Not detected Normal NOT DETECTED [facility] Comment on above: Performed By: #### P OCGLUC #### [facility] [address] [place] [address] Dr. Nayely Ferrer Bacteriodes fragilis Not detected Normal NOT DETECTED [facility] Comment on above: Performed By: #### P OCGLUC #### [facility] [address] [place] [address] Dr. Nayely Ferrer BCID CONTROLS PASSED [facility] Comment on above: Performed By: #### P OCGLUC #### [facility] [address] [place] [address] Dr. Nayely JARAMILLODBTHD BLOOD CULTURE BOTTLE INFORMATION Normal [facility] Comment on above: Performed By: #### P OCGLUC #### [facility] [address] [place] [address] Dr. Nayely Ferrer BCIDHD1 ANTIMICROBIAL RESIST ANCE GENES Normal [facility] Comment on above: Performed By: #### P OCGLUC #### [facility] [address] [place] [address] Dr. Nayely Ferrer BCIDHD2 SEE BELOW [facility] Comment on above: Result Comment: Note : Antimicrobial resitance can occur via multiple mechanisms. A Not Detected result for the [employer] antomicrobial resistance gene assays does not indicate antimicrobial susceptibility. Subculturing is required for species identification and susceptibility testing of isolates. Performed By: #### P OCGLUC #### [facility] [address] [address] [address] Nayely Ferrer BCIDHD3 Positive Normal [facility] Comment on above: Performed By: #### P OCGLUC #### [facility] [address] [address] [address] Nayely Ferrer BCIDHD4 Negative Normal [facility] Comment on above: Performed By: #### P OCGLUC #### [facility] [address] [address] [address] Nayely Ferrer BCIDHD5 YEAST Normal [facility] Comment on above: Performed By: #### P OCGLUC #### [facility] [address] [address] [address] Nayely Ferrer Bottle Set: Set 1 Normal [facility] Comment on above: Performed By: #### P OCGLUC #### [facility] [address] [place] [address] Dr. Nayely Ferrer Bottle: Aerobic Normal [facility] Comment on above: Performed By: #### P OCGLUC #### [facility] [address] [place] [address] Dr. Nayely Ferrer C. neoformans/gattii Not detected Normal NOT DETECTED [facility] Comment on above: Performed By: #### P OCGLUC #### [facility] [address] [place] [address] Dr. Nayely Ferrer Cindy albicans Not detected Normal NOT DETECTED [facility] Comment on above: Performed By: #### P OCGLUC #### [facility] [address] [place] [address] Dr. Nayely Ferrer Cindy auris Not detected Normal NOT DETECTED [facility] Comment on above: Performed By: #### P OCGLUC #### [facility] [address] [place] [address] Dr. Nayely Ferrer Cindy glabrata Not detected Normal NOT DETECTED [facility] Comment on above: Performed By: #### P OCGLUC #### [facility] [address] [place] [address] Dr. Nayely Ferrer Cindy Krusei Not detected Normal NOT DETECTED [facility] Comment on above: Performed By: #### P OCGLUC #### [facility] [address] [place] [address] Dr. Nayely Ferrer Cindy Parapsilosis Not detected Normal NOT DETECTED [facility] Comment on above: Performed By: #### P OCGLUC #### [facility] [address] [place] [address] Dr. Nayely Ferrer Cindy Tropicalis Not detected Normal NOT DETECTED [facility] Comment on above: Performed By: #### P OCGLUC #### [facility] [address] [place] [address] Dr. Nayely Ferrer CTX-M Resistant Gene Detected Abnormal NOT DETECTED [facility] Comment on above: Performed By: #### P OCGLUC #### [facility] [address] [place] [address] Dr. Nayely Ferrer E. Cloacae complex Not detected Normal NOT DETECTED [facility] Comment on above: Performed By: #### P OCGLUC #### [facility] [address] [place] [address] Dr. Nayely Ferrer E. faecalis Not detected Normal NOT DETECTED [facility] Comment on above: Performed By: #### P OCGLUC #### [facility] [address] [place] [address] Dr. Nayely Ferrer E. faecium Not detected Normal NOT DETECTED [facility] Comment on above: Performed By: #### P OCGLUC #### [facility] [address] [place] [address] Dr. Nayely Ferrer Enterobacteriaceae Detected Critically abnormal NOT DETECTED [facility] Comment on above: Performed By: #### P OCGLUC #### [facility] [address] [place] [address] Dr. Nayely Ferrer Escherichia coli Detected Critically abnormal NOT DETECTED [facility] Comment on above: Performed By: #### P OCGLUC #### [facility] [address] [place] [address] Dr. Nayely Ferrer H. influenzae Not detected Normal NOT DETECTED [facility] Comment on above: Performed By: #### P OCGLUC #### [facility] [address] [place] [address] Dr. Nayely Ferrer IMP Resistant Gene Not detected Normal NOT DETECTED [facility] Comment on above: Performed By: #### P OCGLUC #### [facility] [address] [place] [address] Dr. Nayely Ferrer K. oxytoca Not detected Normal NOT DETECTED [facility] Comment on above: Performed By: #### P OCGLUC #### [facility] [address] [place] [address] Dr. Nayely Ferrer K. pneumoniae Not detected Normal NOT DETECTED [facility] Comment on above: Performed By: #### P OCGLUC #### [facility] [address] [place] [address] Dr. Nayely Ferrer Klebsiella aerogenes Not detected Normal NOT DETECTED [facility] Comment on above: Performed By: #### P OCGLUC #### [facility] [address] [place] [address] Dr. Nayely Ferrer KPC Resistant Gene Not detected Normal NOT DETECTED [facility] Comment on above: Performed By: #### P OCGLUC #### [facility] [address] [place] [address] Dr. Nayely Ferrer List. monocytogenes Not detected Normal NOT DETECTED [facility] Comment on above: Performed By: #### P OCGLUC #### [facility] [address] [place] [address] Dr. Nayely Ferrer Mcr-1 Resistant Gene Not detected Normal NOT DETECTED [facility] Comment on above: Performed By: #### P OCGLUC #### [facility] [address] [place] [address] Dr. Nayely Ferrer mecA/C Not Applicable Normal NOT DETECTED [facility] Comment on above: Performed By: #### P OCGLUC #### [facility] [address] [place] [address] Dr. Nayely Ferrre mecA/C MREJ Not Applicable Normal NOT DETECTED [facility] Comment on above: Performed By: #### P OCGLUC #### [facility] [address] [place] [address] Dr. Nayely Ferrer N. meningitidis Not detected Normal NOT DETECTED [facility] Comment on above: Performed By: #### P OCGLUC #### [facility] [address] [place] [address] Dr. Nayely Ferrer NDM Resistant Gene Not detected Normal NOT DETECTED [facility] Comment on above: Performed By: #### P OCGLUC #### [facility] [address] [place] [address] Dr. Nayely Ferrer Oxa-48-like Not detected Normal NOT DETECTED [facility] Comment on above: Performed By: #### P OCGLUC #### [facility] [address] [place] [address] Dr. Nayely Ferrer Proteus Not detected Normal NOT DETECTED [facility] Comment on above: Performed By: #### P OCGLUC #### [facility] [address] [place] [address] Dr. Nayely Ferrer Pseud. aeruginosa Not detected Normal NOT DETECTED [facility] Comment on above: Performed By: #### P OCGLUC #### [facility] [address] [place] [address] Dr. Nayely Ferrer S. maltophilia Not detected Normal NOT DETECTED [facility] Comment on above: Performed By: #### P OCGLUC #### [facility] [address] [place] [address] Dr. Nayely Ferrer Salmonella Not detected Normal NOT DETECTED [facility] Comment on above: Performed By: #### P OCGLUC #### [facility] [address] [place] [address] Dr. Nayely Ferrer Seratia marcescens Not detected Normal NOT DETECTED [facility] Comment on above: Performed By: #### P OCGLUC #### [facility] [address] [place] [address] Dr. Nayely Ferrer Site: Lt Wrist Normal [facility] Comment on above: Performed By: #### P OCGLUC #### [facility] [address] [place] [address] Dr. Nayely Ferrer Staph. aureus Not detected Normal NOT DETECTED [facility] Comment on above: Performed By: #### P OCGLUC #### [facility] [address] [place] [address] Dr. Nayely Ferrer Staph. epidermidis Not detected Normal NOT DETECTED [facility] Comment on above: Performed By: #### P OCGLUC #### [facility] [address] [place] [address] Dr. Nayely Ferrer Staph. lugdunensis Not detected Normal NOT DETECTED [facility] Comment on above: Performed By: #### P OCGLUC #### [facility] [address] [place] [address] Dr. Nayely Ferrer Staphylococcus Not detected Normal NOT DETECTED [facility] Comment on above: Performed By: #### P OCGLUC #### [facility] [address] [place] [address] Dr. Nayely Ferrer Strep. agalactiae Not detected Normal NOT DETECTED [facility] Comment on above: Performed By: #### P OCGLUC #### [facility] [address] [place] [address] Dr. Nayely Ferrer Strep. pneumoniae Not detected Normal NOT DETECTED [facility] Comment on above: Performed By: #### P OCGLUC #### [facility] [address] [place] [address] Dr. Nayely Ferrer Strep. pyogenes Not detected Normal NOT DETECTED [facility] Comment on above: Performed By: #### P OCGLUC #### [facility] [address] [place] [address] Dr. Nayely Ferrer Streptococcus Not detected Normal NOT DETECTED [facility] Comment on above: Performed By: #### P OCGLUC #### [facility] [address] [place] [address] Dr. Nayely Ferrer [place]/B Resist. Gene Not Applicable Normal NOT DETECTED [facility] Comment on above: Performed By: #### P OCGLUC #### [facility] [address] [place] [address] Dr. Nayely Ferrer VIM Resistant Gene Not detected Normal NOT DETECTED [facility] Comment on above: Performed By: #### P OCGLUC #### [facility] [address] [place] [address] Dr. Nayely Ferrer CBC AUTO DIFFon 06-16-2022 BASO # 0.1 103/ul Normal 0.0-0.1 [facility] Comment on above: Performed By: #### P OCGLUC #### [facility] [address] [address] [address] Nayely Ferrer Basophils/100 WBC (Bld) 0.3 % Normal 0.2-2.0 [facility] Comment on above: Performed By: #### P OCGLUC #### [facility] [address] [address] [address] Nayely Ferrer EO # 0.0 103/ul Normal 0.0-0.7 [facility] Comment on above: Performed By: #### P OCGLUC #### [facility] [address] [address] [address] Nayely Ferrer Eosinophils/100 WBC (Bld) 0.0 % Critically low 0.9-7.0 [facility] Comment on above: Performed By: #### P OCGLUC #### [facility] [address] [place] [address] Dr. Nayely Ferrer Erythrocyte distribution width (RBC) [Ratio] 13.2 % Normal 11.0-15.0 [facility] Comment on above: Performed By: #### P OCGLUC #### [facility] [address] [place] [address] Dr. Nayely Ferrer Hematocrit (Bld) [Volume fraction] 40.3 % Critically low 42.0-54.0 [facility] Comment on above: Performed By: #### P OCGLUC #### [facility] [address] [place] [address] Dr. Nayely Ferrer Hemoglobin (Bld) [Mass/Vol] 14.0 g/dL Normal 14.0-18.0 [facility] Comment on above: Performed By: #### P OCGLUC #### [facility] [address] [place] [address] Dr. Nayely Ferrer IG # 0.18 10e3/ul Critically high 0.00-0.03 [facility] Comment on above: Performed By: #### P OCGLUC #### [facility] [address] [place] [address] Dr. Nayely Ferrer IG % 1.0 % Critically high 0.0-0.5 [facility] Comment on above: Performed By: #### P OCGLUC #### [facility] [address] [address] [address] Nayely Ferrer LYMPH # 0.8 103/ul Critically low 1.2-3.8 [facility] Comment on above: Performed By: #### P OCGLUC #### [facility] [address] [address] [address] Nayely Ferrer Lymphocytes/100 WBC (Bld) 4.3 % Critically low 20.5-60.0 [facility] Comment on above: Performed By: #### P OCGLUC #### [facility] [address] [place] [address] Dr. Nayely Ferrer MANUAL DIFF REQ NO Normal [facility] Comment on above: Performed By: #### P OCGLUC #### [facility] [address] [place] [address] Dr. Nayely Ferrer MCH (RBC) [Entitic mass] 29.7 pg Normal 25.9-34.0 [facility] Comment on above: Performed By: #### P OCGLUC #### [facility] [address] [place] [address] Dr. Nayely Ferrer MCHC (RBC) [Mass/Vol] 34.7 g/dL Normal 29.9-35.2 [facility] Comment on above: Performed By: #### P OCGLUC #### [facility] [address] [place] [address] Dr. Nayely Ferrer MCV (RBC) [Entitic vol] 85.6 fL Normal 80.0-94.0 [facility] Comment on above: Performed By: #### P OCGLUC #### [facility] [address] [place] [address] Dr. Nayely Ferrer MONO # 0.8 103/ul Normal 0.3-0.8 [facility] Comment on above: Performed By: #### P OCGLUC #### [facility] [address] [address] [address] Nayely Ferrer Monocytes/100 WBC (Bld) 4.7 % Normal 1.7-12.0 [facility] Comment on above: Performed By: #### P OCGLUC #### [facility] [address] [address] [address] Nayely Ferrer NEUT # 15.7 103/ul Critically high 1.4-6.5 [facility] Comment on above: Performed By: #### P OCGLUC #### [facility] [address] [address] [address] Nayely Ferrer Neutrophils/100 WBC (Bld) 89.7 % Critically high 43.0-75.0 [facility] Comment on above: Performed By: #### P OCGLUC #### [facility] [address] [address] [address] Nayely Ferrer Platelet mean volume (Bld) [Entitic vol] 9.6 fL Normal 9.5-13.5 [facility] Comment on above: Performed By: #### P OCGLUC #### [facility] [address] [address] [address] Nayely Ferrer PLT 153 103/ul Normal 150-450 [facility] Comment on above: Performed By: #### P OCGLUC #### [facility] [address] [place] [address] Dr. Nayely Ferrer RBC 4.71 106/ul Normal 4.70-6.10 [facility] Comment on above: Performed By: #### P OCGLUC #### [facility] [address] [place] [address] Dr. Nayely Ferrer WBC 17.5 103/ul Critically high 4.0-11.0 [facility] Comment on above: Performed By: #### P OCGLUC #### [facility] [address] [place] [address] ABD/PELVIS WO CONon [...] ASIA BAXTER Date: 2022-06-16 20:11 Normal [facility] CULTURE BLOODon 06-16-2022 Microscopic examination of blood, culture Culture Observations: Aerobic bottle positive; BCID: E. Coli called to Emelyn Blue RN Culture Observations: Refer to accession #[id number] for susceptibilities Culture Observations: NO GROWTH IN ANAEROBIC BOTTLE AT 5 DAYS. Isolate 1 [id number] Growth of Normal [facility] Comment on above: Performed By: #### B [id number] #### [facility] [address] [place] [address] Dr. Nayely Ferrer Covid-19 PCR (CVDTB)on 05-23 SARS-CoV-2 (COVID-19) RNA JOSIE+probe Ql (Unsp spec) Not detected Normal NOT DETECTED [facility] Comment on above: Result Comment: When [...] for this test is supported by the [employer] and [employer]'s declaration that [...] used). Performed By: #### P OCGLUC #### [facility] [address] [place] [address] Dr. Nayely Ferrer ER URINE PROFILEon 3 Bilirubin Ql (U) Negative Normal NEGATIVE [facility] Comment on above: Performed By: #### P OCGLUC #### [facility] [address] [place] [address] Dr. Nayely Ferrer Clarity (U) SL CLOUDY Abnormal CLEAR [facility] Comment on above: Performed By: #### P OCGLUC #### [facility] [address] [place] [address] Dr. Nayely Ferrer Color (U) YELLOW Normal YELLOW [facility] Comment on above: Performed By: #### P OCGLUC #### [facility] [address] [place] [address] Dr. Nayely Ferrer ERUAHD A micrscopic examina tion will be performed if indicated. Normal [facility] Comment on above: Performed By: #### P OCGLUC #### [facility] [address] [place] [address] Dr. Nayely Ferrer Glucose Ql (U) >1000 Abnormal NEGATIVE [facility] Comment on above: Performed By: #### P OCGLUC #### [facility] [address] [place] [address] Dr. Nayely Ferrer Hemoglobin Ql (U) LARGE Abnormal NEGATIVE [facility] Comment on above: Performed By: #### P OCGLUC #### [facility] [address] [place] [address] Dr. Nayely Ferrer Ketones Ql (U) 40 mg/dl Abnormal NEGATIVE [facility] Comment on above: Performed By: #### P OCGLUC #### [facility] [address] [place] [address] Dr. Nayely Ferrer LEUKOCYTES TRACE Abnormal NEGATIVE [facility] Comment on above: Performed By: #### P OCGLUC #### [facility] [address] [place] [address] Dr. Nayely Ferrer Nitrite Ql (U) Positive Abnormal NEGATIVE [facility] Comment on above: Performed By: #### P OCGLUC #### [facility] [address] [place] [address] Dr. Nayely Ferrer pH (U) 5.5 [pH] Normal 5-9 [facility] Comment on above: Performed By: #### P OCGLUC #### [facility] [facility] [address] [place] [address] Dr. Nayely Ferrer Protein (U) [Mass/Vol] 100 mg/dL Abnormal NEGATIVE/ TRACE [facility] Comment on above: Performed By: #### P OCGLUC #### [facility] [address] [place] [address] Dr. Nayely Ferrer SPEC GRAVITY 1.025 Normal 1.005-<=1. 025 [facility] Comment on above: Performed By: #### P OCGLUC #### [facility] [address] [place] [address] Dr. Nayely Ferrer UR MICRO IND INDICATED Normal [facility] Comment on above: Performed By: #### P OCGLUC #### [facility] [address] [place] [address] Dr. Nayely Ferrer Urobilinogen Qn (U) 0.2 {Ced'U}/dL Normal 0.2 - 1. 0 [facility] Comment on above: Performed By: #### P OCGLUC #### [facility] [address] [place] [address] Dr. Nayely Ferrer LACTATE/LACTIC ACIDon 2022 Lactate [Moles/Vol] 1.7 mmol/L Normal 0.4-1.9 [facility] Comment on above: Performed By: #### P OCGLUC #### [facility] [address] [place] [address] Dr. Nayely Ferrer PROF 14(COMP METB)on 023 Albumin [Mass/Vol] 2.7 g/dL Critically low 3.4-5.0 [facility] Comment on above: Performed By: #### P OCGLUC #### [facility] [address] [place] [address] Dr. Nayely Ferrer Albumin/Globulin [Mass ratio] 0.6 {ratio} Normal [facility] Comment on above: Performed By: #### P OCGLUC #### [facility] [address] [place] [address] Dr. Nayely Ferrer ALP [Catalytic activity/Vol] 82 U/L Normal 46-116 [facility] Comment on above: Performed By: #### P OCGLUC #### [facility] [address] [place] [address] Dr. Nayely Ferrer ALT [Catalytic activity/Vol] 21 U/L Normal 16-63 [facility] Comment on above: Performed By: #### P OCGLUC #### [facility] [address] [place] [address] Dr. Nayely Ferrer Anion gap [Moles/Vol] 16.8 mmol/L Normal [facility] Comment on above: Performed By: #### P OCGLUC #### [facility] [address] [place] [address] Dr. Nayely Ferrer AST [Catalytic activity/Vol] 18 U/L Normal 15-37 [facility] Comment on above: Performed By: #### P OCGLUC #### [facility] [address] [address] [address] Nayely Ferrer Bilirubin [Mass/Vol] 0.9 mg/dL Normal 0.2-1.0 [facility] Comment on above: Performed By: #### P OCGLUC #### [facility] [address] [place] [address] Dr. Nayely Ferrer Calcium [Mass/Vol] 8.8 mg/dL Normal 8.5-10.1 [facility] Comment on above: Performed By: #### P OCGLUC #### [facility] [address] [place] [address] Dr. Nayely Ferrer Chloride [Moles/Vol] 94 mmol/L Critically low 98-107 [facility] Comment on above: Performed By: #### P OCGLUC #### [facility] [address] [place] [address] Dr. Nayely Ferrer CO2 [Moles/Vol] 22.6 mmol/L Normal 21.0-32.0 [facility] Comment on above: Performed By: #### P OCGLUC #### [facility] [address] [place] [address] Dr. Nayely Ferrer Creatinine [Mass/Vol] 1.49 mg/dL Critically high 0.70-1.30 [facility] Comment on above: Performed By: #### P OCGLUC #### [facility] [address] [place] [address] Dr. Nayely Ferrer EGFR-AF NIGERIEN >60 Normal >=60 [facility] Comment on above: Performed By: #### P OCGLUC #### [facility] [address] [place] [address] Dr. Nayely Ferrer EGFR-NON AF NIGERIEN 51 mL/min/1.73m2 Critically low >=60 [facility] Comment on above: Performed By: #### P OCGLUC #### [facility] [address] [place] [address] Dr. Nayely Ferrer Globulin (S) [Mass/Vol] 4.4 g/dL Normal [facility] Comment on above: Performed By: #### P OCGLUC #### [facility] [address] [place] [address] Dr. Nayely Ferrer Glucose [Mass/Vol] 346 mg/dL Critically high 74-[address] [facility] Comment on above: Performed By: #### P OCGLUC #### [facility] [address] [address] [address] Nayely Ferrer Potassium [Moles/Vol] 3.4 mmol/L Critically low 3.5-5.1 [facility] Comment on above: Performed By: #### P OCGLUC #### [facility] [address] [place] [address] Dr. Nayely Ferrer Protein [Mass/Vol] 7.1 g/dL Normal 6.4-8.2 [facility] Comment on above: Performed By: #### P OCGLUC #### [facility] [address] [place] [address] Dr. Nayely Ferrer Sodium [Moles/Vol] 130 mmol/L Critically low 136-145 [facility] Comment on above: Performed By: #### P OCGLUC #### [facility] [address] [place] [address] Dr. Nayely Ferrer Urea nitrogen [Mass/Vol] 16.0 mg/dL Normal 7.0-18.0 [facility] Comment on above: Performed By: #### P OCGLUC #### [facility] [address] [place] [address] Dr. Nayely Ferrer Urea nitrogen/Creatinine [Mass ratio] 10.7 mg/mg Normal [facility] Comment on above: Performed By: #### P OCGLUC #### [facility] [address] [place] [address] Dr. Nayely Ferrer URINE MICROSCOPIC ONLYon BACTERIA LARGE Abnormal NONE SEEN [facility] Comment on above: Performed By: #### P OCGLUC #### [facility] [address] [place] [address] Dr. Nayely Ferrer Bacteria identified Cx Nom (U) INDICATED Normal [facility] Comment on above: Performed By: #### P OCGLUC #### [facility] [address] [place] [address] Dr. Nayely Ferrer CAST NONE SEEN Normal NONE SEEN [facility] Comment on above: Performed By: #### P OCGLUC #### [facility] [address] [address] [address] Nayely Ferrer Crystals LM Nom (Urine sed) NONE SEEN Normal NONE SEEN [facility] Comment on above: Performed By: #### P OCGLUC #### [facility] [address] [address] [address] Nayely Ferrer Epithelial cells LM Ql (Urine sed) FEW Abnormal NONE SEEN /RARE [facility] Comment on above: Performed By: #### P OCGLUC #### [facility] [address] [address] [address] Nayely Ferrer MUCOUS NONE SEEN Normal NONE SEEN [facility] Comment on above: Performed By: #### P OCGLUC #### [facility] [address] [address] [address] Nayely Ferrer RBC (U) [#/Vol] /uL Abnormal 0-2 [facility] Comment on above: Performed By: #### P OCGLUC #### [facility] [address] [address] [address] Nayely Ferrer WBC 75-100 Abnormal NONE SEEN [facility] Comment on above: Performed By: #### P OCGLUC #### [facility] [address] [address] [address] Nayely Ferrer Ambulatory Visit Summaryon 0 [...] Hypertriglyceridemia Hyperuricemia IBS (irritable bowel syndrome) Insulinoma Qkst-Ipexu-Qbizknj disease Lumbar disc disease Migraines Normal [facility] General Surgery Office/Clini c Noteon 05-17-2022 [...] Hypertriglyceridemia Hyperuricemia IBS (irritable bowel syndrome) Insulinoma Ywlg-Obuhz-Lzsrhjl disease Lumbar disc disease Migraines Historical No [...] influenza virus vaccine, inactivated 02/15/2022 Recorded SARSCoV2 mRNA(gsygkkosq-adeo-shjejn) vac 11/29/2021 Recorded SARS-CoV-2 (COVID-19) mRNA BNT-162b2 vax 05/02/2021 Recorded 2022-04-19: TPV40 SARS-CoV-2 (COVID-19) mRNA BNT-162b2 vax 08/07/2020 Recorded 2022-04-19: TPV40 SARS-CoV-2 (COVID-19) mRNA BNT-162b2 vax 07/18/2020 Recorded 2022-04-19: TPV40 Normal [facility] Comment on above: Result Comment: Elec tronically Signed By: WILMAN MCKEE, Khadar Canchola\Date and Time Signed: 05/17/22 15:50 EST Pathology Noteon 05-10-2022 Pathology Note [id number]#[id number]:127 Normal [facility] Operative Reporton Operative Report [id number]#1.00CD:127 Normal [facility] POINT OF CARE GLUCOSEon 04-21 Glucose [Mass/Vol] 153 mg/dL Critically high 74-[address] [facility] Comment on above: Performed By: #### P OCGLUC #### [facility] [address] [place] [address] Dr. Nayely Ferrer Lab Reportson 05-06-2022 Lab Reports [id number]#[id number]:127 Normal [facility] Covid-19 PCR (CVDTBH)on 04-21 SARS-CoV-2 (COVID-19) RNA JOSIE+probe Ql (Unsp spec) Not detected Normal NOT DETECTED [facility] Comment on above: Result Comment: This test is not yet approved or cleared by the [place] FDA. When there are no FDA-approved or cleared tests available, and other criteria are met, FDA can make tests available under an emergency access mechanism called an Emergency Use Authorization (EUA). The EUA for this test is supported by the [place] of Health and Human Service's (HHS's) declaration [...] consistent with SARS-CoV-2. Performed By: #### [facility] #### [facility] [address] [place] [address] Dr. Nayely Ferrer Consent for Procedure/Surger yon 04-23-2022 Consent for Procedure/Surgery [id number]:127 Normal [facility] Physician Referralon 022 Physician Referral [id number]#[id number]:127 Normal [facility] Covid-19 PCR (CVDTBH)on 11-20 SARS-CoV-2 (COVID-19) RNA JOSIE+probe Ql (Unsp spec) Detected Critically abnormal NOT DETECTED [facility] Comment on above: Result Comment: This test is not yet approved or cleared by the [place] FDA. When there are no FDA-approved or cleared tests available, and other criteria are met, FDA can make tests available under an emergency access mechanism called an Emergency Use Authorization (EUA). The EUA for this test is supported by the [place] of Health and Human Service's (HHS's) declaration [...] used). Performed By: #### P OCGLUC #### [facility] [address] [address] [address] Nayely Ferrer Outside Colonoscopyon 2021 Outside Colonoscopy [id number]#[id number]:127 Normal [facility] Reminderson 10-25-2021 Reminders - From: Beverley Rizvi LPN To: GSN - Clinical; Sent: 10/25/2021 10:31:26 EDT Show up: 09/25/2031 07:00:00 EDT Subject: colonoscopy recall Due Date/Time: 10/25/2031 07:00:00 EDT Reminder/Recall Patient is due for screening colonoscopy 10/25/2031. Normal [facility] POINT OF CARE GLUCOSEon 070 Glucose [Mass/Vol] 209 mg/dL Critically high 74-106 [facility] Comment on above: Performed By: #### P OCGLUC #### [facility] [id number] Nayely Ferrer Consent for Procedure/Surger yon 09-20-2021 Consent for Procedure/Surgery [id number]:127 Normal [facility] Facesheeton 09-19-2021 Facesheet [id number]#1.00CD:127 Normal [facility] RAD - CT Reporton 09-14-2021 RAD - CT Report [id number]#1.00CD:127 [facility] Historical Records Officeon 09-13-2021 Historical Records Office [id number]#1.00CD:127 [facility] Physician Referralon 022 Physician Referral [id number]#[id number]:127 [facility] Vital Signs Date Time Vital Sign Value Performing Clinician Facility 06-01-2024 15:33-0500 Body height 177.8 cm Poli Xiong MD Work Phone: [facility] 06-01-2024 15:33-0500 Body mass index (BMI) [Ratio] 38.31 kg/m2 Poli Xiong MD Work Phone: [facility] 06-01-2024 15:33-0500 Body weight 121.11 kg Poli Xiong MD Work Phone: [facility] 02-27-2024 08:34-0500 Body height 177.8 cm Trey Rincon MD Work Phone: [facility] 02-27-2024 08:34-0500 Diastolic blood pressure 76 mm[Hg] Trey Rincon MD Work Phone: [facility] 02-27-2024 08:34-0500 Systolic blood pressure 128 mm[Hg] Trey Rincon MD Work Phone: [facility] 01-20-2024 15:05-0400 Body height 177.8 cm Trey Rincon MD Work Phone: [facility] 01-20-2024 15:05-0400 Diastolic blood pressure 82 mm[Hg] Trey Rincon MD Work Phone: [facility] 01-20-2024 15:05-0400 Systolic blood pressure 134 mm[Hg] Trey Rincon MD Work Phone: [facility] 10-14-2023 12:33-0400 Body height 177.8 cm Poli Xiong MD Work Phone: [facility] 10-14-2023 12:33-0400 Body mass index (BMI) [Ratio] 38.31 kg/m2 Poli Xiong MD Work Phone: [facility] 10-14-2023 12:33-0400 Body weight 121.11 kg Poli Xiong MD Work Phone: [facility] 10-14-2023 12:33-0400 Diastolic blood pressure 86 mm[Hg] Poli Xiong MD Work Phone: [facility] 10-14-2023 12:33-0400 Heart rate 83 /min Poli Xiong MD Work Phone: [facility] 10-14-2023 12:33-0400 Systolic blood pressure 136 mm[Hg] Poli Xiong MD Work Phone: [facility] 08-27-2023 16:39-0400 Body height 177.8 cm Radha ARCHULETA Work Phone: [facility] 08-27-2023 16:39-0400 Body mass index (BMI) [Ratio] 38.31 kg/m2 Radha ARCHULETA Work Phone: [facility] 08-27-2023 16:39-0400 Body weight 121.11 kg Radha ARCHULETA Work Phone: [facility] 08-27-2023 16:39-0400 Diastolic blood pressure 78 mm[Hg] Radha ARCHULETA Work Phone: [facility] 08-27-2023 16:39-0400 Heart rate 87 /min Radha ARCHULETA Work Phone: [facility] 08-27-2023 16:39-0400 Systolic blood pressure 121 mm[Hg] Radha ARCHULETA Work Phone: [facility] 04-19-2022 14:49-0500 Blood Pressure Location Khadar NILL [facility] [place] 04-19-2022 14:49-0500 Diastolic blood pressure 94 mm[Hg] Khadar NILL [facility] [place] 04-19-2022 14:49-0500 Heart rate 70 /min Khadar NILL [facility] [place] 04-19-2022 14:49-0500 Respiratory rate 16 /min Khadar NILL [facility] [place] 04-19-2022 14:49-0500 Systolic blood pressure 124 mm[Hg] Khadar NILL [facility] [place] 09-18-2021 13:43-0400 Blood Pressure Location Khadar NILL [facility] [place] 09-18-2021 13:43-0400 Diastolic blood pressure 78 mm[Hg] Khadar NILL [facility] 09-18-2021 13:43-0400 Heart rate 76 /min Khadar NILL [facility] [place] 09-18-2021 13:43-0400 Respiratory rate 16 /min Khadar NILL [facility] [place] 09-18-2021 13:43-0400 Systolic blood pressure 126 mm[Hg] Khadar NILL [facility] Encounters Encounter Date Encounter Type Care Provider Facility Start: 06-01-2024 End: 06-01-2024 Office outpatient visit 15 minutes Poli Xiong MD Work Phone: [facility] Comment on above: Kidney stone (Primar y Dx) Start: 06-01-2024 End: 06-01-2024 ambulatory [facility] Start: 02-27-2024 End: 02-27-2024 Bamboo flowspaulo Rincon MD Work Phone: [facility] Start: 02-27-2024 End: 02-27-2024 Bamboo mague Rincon MD Work Phone: [facility] Start: 02-27-2024 End: 02-27-2024 Office outpatient visit 15 minutes Trey Rincon MD Work Phone: [facility] Comment on above: Dizziness and giddin ess (Primary Dx); Mucous retention cyst of maxillary sinus Start: 02-27-2024 End: 02-27-2024 ambulatory TREY H TIMMIS Not Available Start: 01-23-2024 End: 02-03-2024 Telephone encounter Trey Rincon MD Work Phone: [facility] Start: 01-21-2024 End: 01-21-2024 ambulatory TREY H TIMMIS Not Available Start: 01-20-2024 End: 01-20-2024 Office outpatient visit 25 minutes Trey Rincon MD Work Phone: [facility] Comment on above: Dizziness and giddin ess (Primary Dx); Otalgia, bilateral; Chronic sinusitis, unspecified location; Bilateral impacted cerumen Start: 01-20-2024 End: 01-20-2024 ambulatory TREY H TIMMIS Not Available Start: 01-20-2024 End: 01-20-2024 Bamboo flowspaulo Rincon MD Work Phone: [facility] Start: 01-20-2024 End: 01-20-2024 Bamboo mague Rincon MD Work Phone: [facility] Start: 01-12-2024 End: 01-12-2024 ambulatory ALISON FREITAS [facility] Comment on above: Asymmetrical sensori neural hearing loss (Primary Dx); Eustachian tube dysfunction, bilateral Start: 01-12-2024 End: 01-12-2024 Bamboo flowsheet Alison Freitas CCC-A Work Phone: [facility] Start: 01-12-2024 End: 01-12-2024 Bamboo flowsheet Alison Freitas CCC-A Work Phone: [facility] Start: 11-24-2023 End: 11-24-2023 ambulatory TREY RINCON Not Available Start: 10-26-2023 End: 10-27-2023 Emergency department patient visit [facility] Start: 10-14-2023 End: 10-14-2023 Office outpatient visit 15 minutes Poli Xiong MD Work Phone: [facility] Comment on above: Kidney stone (Primar y Dx) Start: 10-14-2023 End: 10-14-2023 ambulatory POLI XIONG [facility] Start: 10-13-2023 End: 10-13-2023 Telephone encounter Padmini Carrasco LPN [facility] Start: 10-13-2023 End: 10-13-2023 ambulatory [facility] Start: 09-08-2023 End: 09-08-2023 ambulatory [facility] Start: 08-27-2023 End: 08-27-2023 Office outpatient visit 25 minutes Radha ARCHULETA Work Phone: [facility] Comment on above: Kidney stone (Primar y Dx) Start: 08-27-2023 End: 08-27-2023 ambulatory [facility] Start: 08-23-2023 End: 08-24-2023 ambulatory GERMAN [facility] Start: 08-23-2023 End: 08-23-2023 Emergency department patient visit [facility] Start: 08-23-2023 End: 08-23-2023 Telephone encounter Dheeraj Garrison MD Work Phone: [facility] Start: 12-06-2022 End: 12-07-2022 ambulatory FER FELIZ [facility] Start: 07-08-2022 End: 07-09-[address] FER FELIZ . Facility: Start: 06-21-2022 End: 07-02-[address] FER FELIZ . Facility:[facility] Start: 06-17-2022 End: 06-20-2022 Evaluation and management of inpatient DR FER FELIZ . Facility:[facility] Start: 05-17-2022 End: 05-18-2022 ambulatory Khadar WALTER Facility:[facility] Start: 05-17-2022 End: 05-17-2022 Patient encounter procedure Khadar WALTER [facility] [place] Start: 05-10-2022 Encounter for preprocedural laboratory examination DR KHADAR WALTER . [facility] Start: 05-08-2022 End: 05-09-2022 ambulatory Khadar WALTER Facility:[id number] Start: 05-03-2022 End: 05-04-[address] KHADAR WALTER . Facility: Start: 05-03-2022 End: 05-04-2022 Encounter for preprocedural laboratory examination DR KHADAR WALTER . Facility: Start: 04-19-2022 End: 04-20-2022 ambulatory Fer Feliz PROVIDER Facility:[facility] Start: 04-19-2022 End: 04-19-2022 Patient encounter procedure Khadar Reed NILL General Surgery [facility] [place] Start: 12-13-2021 End: 12-13-[address] FER FELIZ . Facility: Start: 10-24-2021 End: 10-25-2021 ambulatory Khadar WALTER Facility:[id number] Start: 10-20-[address] FER FELIZ [...] Start: 01-12-2024 AUDITORY FUNCTION TESTS Alison Freitas [facility] Work Phone: Start: 10-14-2023 Urnls dip stick/tablet [...] Office Visit [facility] [address] [place] [address] A [facility] [place] [address] Poli Xiong MD [address] [place] [id number] [facility] Start: 06-01-2025 Adult BMI Screening Adult BMI Screen [facility] Start: 06-01-2025 Tobacco Screening Tobacco Screening [facility] Start: 06-01-2025 End: 06-01-2026 XR Abdomen AP X-ray abdomen ap 1 view Imaging Routine Kidney stone Expected: 06/01/2025, Expires: 06/01/2026 [facility] Work Phone: Comment on above: Expected: 06/01/2025 , Expires: 06/01/2026 Start: 10-13-2024 Adult BMI Screening Adult BMI Screen ing [facility] Start: 10-13-2024 Tobacco Screening Tobacco Screening [facility] Start: 08-26-2024 Adult BMI Screening Adult BMI Screen ing [facility] Start: 08-26-2024 Tobacco Screening Tobacco Screening [facility] Start: 08-22-2024 Adult BMI Screening Adult BMI Screen ing [facility] Start: 06-01-2024 End: 06-01-2024 Patient encounter procedure 06/01/2024 3:45 PM EST [facility] [address] [place] [address] A [facility] [place] [address] Poli Xiong MD [address] [place] [id number] [facility] Start: 05-25-2024 End: 08-26-2024 XR Abdomen AP X-ray abdomen ap 1 view Imaging Routine Kidney stone Expected: 05/25/2024, Expires: 08/26/2024 [facility] Comment on above: Expected: 05/25/2024 , Expires: 08/26/2024 Start: 02-27-2024 End: 02-27-2024 Patient encounter procedure 02/27/2024 9:00 AM EST Office Visit [facility] [address] [facility] [address] [place] [address] Trey Rincon MD [address] [place] [address] [address] [place] [address] Arrived [facility] Comment on above: Arrived Start: 01-20-2024 End: 01-20-2024 Patient encounter procedure [facility] Comment on above: Arrived Start: 01-12-2024 End: 01-12-2024 Clinical Support 01/12/2024 2:45 PM EDT Clinical Support [facility] [address] [place] [id number] Alison Freitas, [facility] [address] [place] [address] Arrived [facility] Comment on above: Arrived Start: 12-21-2023 COVID-19 Vaccine ( season) COVID-19 Vaccine ( season) [facility] Start: 12-21-2023 Influenza vaccination [facility] Start: 10-14-2023 End: 10-14-2023 Patient encounter procedure 10/14/2023 12:30 PM EDT Office Visit [facility] [address] [place] [address] [place] [address] Poli Xiong MD [address] [place] [address] [facility] Start: 01-31-1996 DTaP,Tdap and Td Vaccines (1 - Tdap) DTaP,Tdap and Td Vaccines (1 - Tdap) [facility] Start: 1995 Adult BMI Follow Up Plan Adult BMI Follow Up Plan [facility] Start: 1989 Depression Screening Depression Scre ening [facility] Start: 1989 Tobacco Screening Tobacco Screening [facility] Start: 1977 Screening for malign ant neoplasm of colon [facility] End: 08-26-2024 Microscopic, urine Microscopic, urine Lab Routine Kidney stone PRN for 1 Occurrences starting 08/27/2023 until 08/26/2024 [facility] Work Phone: Comment on above: PRN for 1 Occurrence s starting 08/27/2023 until 08/26/2024 Immunizations Immunization Date Immunization Notes Care Provider Fa cili 02-15-2022 influenza virus vaccine, unspecified formulation [employer] [facility] 11-29-2021 SARS-CoV-2 mRNA (nisluiujndj-mtrt-spojc se) vaccine [employer] [facility] 05-02-2021 SARS-CoV-2 (COVID-19 ) mRNA BNT-162b2 vax [employer] [facility] Comment on above: Result Comment: 2021: [id number] 08-07-2020 SARS-CoV-2 (COVID-19 ) mRNA BNT-162b2 vax [employer] [facility] Comment on above: Result Comment: 2021: [email or web address] 07-18-2020 SARS-CoV-2 (COVID-19 ) mRNA BNT-162b2 vax [employer] [facility] Comment on above: Result Comment: 2021: [email or web address] Payers Date Payer Category Payer Private Health Insurance [employer] [id number] 2019 Commercial Managed [facility] [employer] Member Subscriber Plan / Payer (Effective 2019-Present) Name: Shilo Vegas Relation to Subscriber: Self Name: Shilo Vegas Payer ID: Not on file Type: Not on file Address: [place] [id number] 2019 Unknown [id number] 1977 Unknown [id number] 2.16.840.1.101970.3.579.2. 727 1977 Unknown [id number] 2.16.840.1.435489.3.579.2. 727 1977 Unknown [id number] 2.16.840.1.510647.3.579.2. 727 1977 Unknown [id number] 2.16.840.1.167250.3.579.2. 727 1977 Unknown [id number] 2.16.840.1.361950.3.579.2. 727 1977 Unknown [id number] 2.16.840.1.469857.3.579.2. 727 1977 Unknown [id number] 2.16.840.1.086041.3.579.2. 593 1977 Unknown [id number] 2.16.840.1.822182.3.579.2. 593 1977 Unknown [id number] 2.16.840.1.809126.3.579.2. 593 1977 Unknown [id number] 2.16.840.1.280003.3.579.2. 593 1977 Unknown [id number] 2.16.840.1.201855.3.579.2. 593 1977 Unknown [id number] 2.16.840.1.164876.3.579.2. 593 1977 Unknown [id number] 2.16.840.1.566140.3.579.2. 593 1977 Unknown [id number] 2.16.840.1.526760.3.579.2. 593 1977 Unknown [id number] 2.16.840.1.975250.3.579.2. 173 1977 Unknown [id number] 2.16.840.1.962537.3.579.2. 1286 1977 Unknown [id number] 2.16.840.1.740724.3.579.2. 1286 1977 Unknown [id number] 2.16.840.1.934484.3.579.2. 6 1977 Unknown [id number] 2.16.840.1.176989.3.579.2. 6 1977 Unknown [id number] 2.16.840.1.320740.3.579.2. 9 1977 Unknown [id number] 2.16.840.1.785591.3.579.2. 1259 1977 Unknown [id number] 2.16.840.1.631072.3.579.2. 1259 1977 Unknown [id number] 2.16.840.1.523298.3.579.2. 1259 1977 Unknown [id number] 2.16.840.1.770570.3.579.2. 1259 1977 Unknown [id number] 2.16.840.1.192275.3.579.2. 1286 1977 Unknown [id number] 2.16.840.1.270968.3.579.2. 6 1977 Unknown [id number] 2.16.840.1.860961.3.579.2. 1286 1977 Unknown [id number] 2.16.840.1.263131.3.579.2. 1286 1977 Unknown [id number] 2.16.840.1.781002.3.579.2. 1286 1977 Unknown [id number] 2.16.840.1.895195.3.579.2. 1286 1959 Unknown [id number] Social History Date Type Detail Facility Start: 09-18-2021 End: 08-27-2023 Tobacco smoking status Never smoked tobacco (finding) [facility] Tobacco smoking status Never [facility] Start: 10-14-2023 End: 11-24-2023 Sex Assigned At Male [facility] Start: 08-27-2023 End: 11-19-2023 Tobacco use and exposure Smokeless tobacco non-user [facility] Start: 10-14-2023 End: 11-24-2023 Alcoholic beverage intake Current drinker of alcohol (finding) [facility] Start: 10-14-2023 End: 11-24-2023 History of Social function [facility] Start: 1977 Sex assigned at Not on file P [facility] Start: 06-12-2021 Alcohol Comment socially [facility] Start: 11-22-2014 Sex Male (finding) [facility] Functional Status Date Assessment Result Facility 04-19-2022 Functional Status N/A [facility] Clinical Notes 09-18-2021 to 06-01-2024 Poli Xiong MD - 06/01/2024 2:20 PM Kris Rincon MD - 02/27/2024 9:00 AM ESTTelephone Korey - Dari Rincon - 02/03/2024 8:49 AM Delaney Rincon MD - 01/20/2024 3:20 PM EDT Note Date & Type Note Facility 06-01-2024 History of Presen t illness Narrative Images from the original note were not included. [address] [place] [address] A [facility] [address] Patient: Shilo Carpio Case Date of : [...] Medical History: Diagnosis Date Constipation COVID-19 Diabetes ([facility]) Past Surgical History: Procedure Laterality Date LEG [...] Problem List None Follow-up: [facility] This note was created with the assistance of a speech recognition program. While intending to generate a timely document that accurately reflects the content of the visit, no guarantee can be provided that every grammatical or spelling mistake has been or will be identified or corrected. Thank you for your understanding. documented in this encounter [facility] 02-27-2024 History of Presen t illness Narrative Subjective Patient ID: Shilo Carpio Case is a 49 y.o. male who presents for Sinusitis (CT [facility] 02/13/24) Pt presents after getting CT [...] frequency 06/12/2021 Acne 11/19/2023 Hyponatremia 11/19/2023 Sepsis ([facility]) 11/19/2023 COVID-19 11/19/2023 Hyperuricemia 11/19/2023 Insulinoma 11/19/2023 Acute nontraumatic kidney injury ([facility]) 11/19/2023 Sinus tachycardia 11/19/2023 GERD (gastroesophageal reflux disease) 11/19/2023 Overweight 11/19/2023 Lumbar disc disease 11/19/2023 Constipation 11/19/2023 Balanitis 11/19/2023 Acute cystitis without hematuria 11/19/2023 Acute sinusitis 11/19/2023 IBS (irritable bowel syndrome) 11/19/2023 Diverticulitis 11/19/2023 Hypertriglyceridemia ([facility]) 11/19/2023 Borderline diabetes mellitus 11/19/2023 Glaucoma ([facility]) 11/19/2023 Migraine headache ([facility]) 11/19/2023 Gynecomastia 11/19/2023 Sbzh-Qiojr-Qwnlfik disease 11/19/2023 Resolved Ambulatory Problems Diagnosis Date [...] No tx needed documented in this encounter [facility] 02-03-2024 Telephone encounter Note Called pt to schedule follow up appt/he said his PCP is ordering a CT. PT will call back to schedule once he knows when the CT will be. [facility] 02-03-2024 Miscellaneous Notes Called pt to schedule follow up appt/he said his PCP is ordering a CT. PT will call back to schedule once he knows when the CT will be. Pt needs F/U appt to review xray results documented in this encounter [facility] 01-23-2024 Telephone encounter Note Pt needs F/U appt to review xray results [facility] 01-20-2024 History of Presen t illness Narrative [...] frequency 06/12/2021 Acne 11/19/2023 Hyponatremia 11/19/2023 Sepsis ([facility]) 11/19/2023 COVID-19 11/19/2023 Hyperuricemia 11/19/2023 Insulinoma 11/19/2023 Acute nontraumatic kidney injury (CMS/HCC) 11/19/2023 Sinus tachycardia 11/19/2023 GERD (gastroesophageal reflux disease) 11/19/2023 Overweight 11/19/2023 Lumbar disc disease 11/19/2023 Constipation 11/19/2023 Balanitis 11/19/2023 Acute cystitis without hematuria 11/19/2023 Acute sinusitis 11/19/2023 IBS (irritable bowel syndrome) 11/19/2023 Diverticulitis 11/19/2023 Hypertriglyceridemia (CMS/HCC) 11/19/2023 Borderline diabetes mellitus 11/19/2023 Glaucoma ([facility]) 11/19/2023 Migraine headache ([facility]) 11/19/2023 Gynecomastia 11/19/2023 Auxm-Oqqrp-Vndnnfb disease 11/19/2023 Resolved Ambulatory Problems Diagnosis Date [...] cerumen Ears debrided documented in this encounter [facility] 01-12-2024 History of Presen t illness Narrative [...] Type A tympanogram documented in this encounter [facility] 10-14-2023 History of Presen t illness Narrative Images from the original note were not included. [address] [place] [address] [address] [facility] [address] Patient: Shilo Carpio Case Date of : [...] Medical History: Diagnosis Date Constipation COVID-19 Diabetes ([facility]) Past Surgical History: Procedure Laterality Date LEG [...] for your understanding. documented in this encounter [facility] 10-13-2023 Miscellaneous Notes This nurse called the Pt. To remind him to get his KUB done for his appointment with MD Freddy. Pt. Stated that he would go get that done today. No further questions at this time. documented in this encounter [facility] 10-13-2023 Telephone encounter Note This nurse called the Pt. To remind him to get his KUB done for his appointment with MD Freddy. Pt. Stated that he would go get that done today. No further questions at this time. [facility] 08-27-2023 Evaluation + Plan note Associated Problem(s): Kidney stone In 9 months with a KUB. He will call sooner if any problems. [facility] 08-27-2023 Miscellaneous Notes Associated Problem(s): Kidney stone In 9 months with a KUB. He will call sooner if any problems. documented in this encounter [facility] 08-27-2023 History of Presen t illness Narrative Images from the original note were not included. [address] [place] [address] A [facility] [address] Patient: Shilo Carpio Case Date of : [...] Medical History: Diagnosis Date Constipation COVID-19 Diabetes ([facility]) Past Surgical History: Procedure Laterality Date LEG [...] Lakhani 08/27/23 1713 documented in this encounter [facility] 08-27-2023 Instructions KATHE Lakhani - 08/27/2023 4:15 PM EDT Make sure your urine clears up, please stop at the lab in the next few weeks to leave another urine specimen. The order is in the system. Please go to [facility]. I will call you with the results. [...] be sent through Care Everywhere.Kidney Stone Diet (Maltese)documented [facility]23 Miscellaneous Notes Contact patient and make appointment for him 1st available provider. I returned [facility] access call 7:23 p.m. on 08/23/[address] Selwyn Clark [facility] emergency department. He identified patient is [...] or refractory pain. documented in this encounter [facility] 08-23-2023 Telephone encounter Note Contact patient and make appointment for him 1st available provider. I returned [facility] access call 7:23 p.m. on 08/23/[address] Selwyn Clark [facility] emergency department. He identified patient is [...] return immediately for fever or refractory pain. [facility] Work Phone: 05-08-2022 Note OPERATIVE NOTE OPERATION [...] good condition. CC: Patient's family doctor. [facility] 04-20-2022 Note Chief Complaint consultation for [...] Hypertriglyceridemia Hyperuricemia IBS (irritable bowel syndrome) Insulinoma Cohp-Rjxdb-Yepkmoe disease Lumbar disc disease Migraines Historical No [...] and Father. Hyper (more content not included)... [facility] Comment on above: Result Comment: Elec [...] screening should be in 10 years. : [facility] Signed and Approved by: DR KHADAR WALTER . 10/29/2021 17:17:00 [facility] 09-18-2021 Note Chief Complaint consultation [...] Hypertriglyceridemia Hyperuricemia IBS (irritable bowel syndrome) Insulinoma Ubnw-Gchsw-Xnrzmsv disease Migraines Historical No qualifying data Procedure/Surgical [...] Father. Hypertension: Mother and Father. Stroke: Mother. [facility] Comment on above: Result Comment: Elec tronically Signed By: WILMAN MCKEE, Khadar Canchola\Date and Time Signed: 09/18/21 17:37 EDT Evaluation + Plan note No data available for this section [facility] Evaluation note Diagnosis Dizziness and giddiness- Primary Otalgia, bilateral Chronic sinusitis, unspecified location Bilateral impacted cerumen Impacted cerumen [facility] Diagnosis Dizziness and giddiness- Primary Mucous retention cyst of maxillary sinus [facility] Diagnosis Asymmetrical sensorineural hearing loss- Primary Sensorineural hearing loss, asymmetrical Eustachian tube dysfunction, bilateral documented [facility] encounter [facility]* Diagnosis Kidney stone- Primary Calculus of kidney [facility] Diagnosis Kidney stone- Primary Calculus of kidney Kidney stone- Primary Calculus of kidney [facility] Diagnosis Kidney stone- Primary Calculus of kidney [facility] No data available for this section [facility] InstructionsNot on filedocumented in this encounter [facility] filedocumented in this encounter [facility] on filedocumented in this encounter [facility]ructionsNot on filedocumented in this encounter [facility] No data available for this section [facility] Summary Purpose Family History No Family History [...] team informatio n (unrecognized section and content) Industrial Specialist Relationship Specialty Start Date End Date Fer Feliz MD [address] [place] [address] PCP - General Family Medicine 11/14/23 Industrial Specialist Relationship Specialty Start Date End Date Fer Feliz MD [address] [place] [facility] [place] [address] PCP - General Family Medicine 11/14/23 Industrial Specialist Relationship Specialty Start Date End Date Fer Feliz MD [address] [place] [facility] [place] [address] PCP - General Family Medicine 11/14/23 Industrial Specialist Relationship Specialty Start Date End Date Fer Feliz MD [address] [place] [facility] [place] [address] PCP - General Family Medicine 11/14/23 Industrial Specialist Relationship Specialty Start Date End Date Fer Feliz MD [address] [facility] [place] [address] PCP - General Family Medicine 11/14/23 Industrial Specialist Relationship Specialty Start Date End Date Fer Feliz MD [address] [facility] [place] [address] PCP - General Family Medicine 11/14/23 Industrial Specialist Relationship Specialty Start Date End Date Fer Feliz MD [address] [place] [facility] [address] PCP - General Family Medicine 06/12/21 Industrial Specialist Relationship Specialty Start Date End Date Fer Feliz MD [address] [place] [facility] [address] PCP - General Family Medicine 06/12/21 Industrial Specialist Relationship Specialty Start Date End Date Fer Feliz MD PCP - General Family Medicine 10/26/23 Industrial Specialist Relationship Specialty Start Date End Date Fer Feliz MD [address] [place] [address] PCP - General Family Medicine 06/12/21 Industrial Specialist Relationship Specialty Start Date End Date Fer Feliz MD [address] [place] [address] PCP - General Family Medicine 06/12/21 (unrecognized sect ion and content) No Status Records FoundNo Status Records FoundNo Status Records FoundNo Status Records FoundNo Status Records FoundNo Status Records FoundNo Status Records Found INFORMATION SOURCE (unrecogn ized section and content) DATE CREATED AUTHOR 05/23/2022 [facility] DATE CREATED AUTHOR AUTHOR'S ORGANIZ ATION 07/14/2022 [facility] DATE CREATED AUTHOR AUTHOR'S ORGANIZ ATION 12/08/2022 [facility] DATE CREATED AUTHOR AUTHOR'S ORGANIZ ATION 10/27/2023 [facility] DATE CREATED AUTHOR AUTHOR'S ORGANIZ ATION 02/29/2024 [facility] DATE CREATED AUTHOR AUTHOR'S ORGANIZ ATION 06/03/2024 [facility] DATE CREATED AUTHOR AUTHOR'S ORGANIZ ATION 06/03/2024 [facility] Reason for Visit (unrecogniz ed section and content) Reason Comments Ear Problem Follow up audio 01/[address] [facility] 02/13/24 Reason Comments Follow-up 6 MM STONE Specialty Diagnoses / Procedures Referred By Nasreen dove Referred To Contact Urology Diagnoses Kidney stone German Samano, DO [address] [place] [address] [facility] [address] [place] [address] Referral ID Status Reason Start Date Expiration Date Visits Requested Visits Authorized [id number] Pending Review Specialty Services Required 08/23/2023 08/22/2024 [...] BE BASED ON THE PRIMARY CLINICAL RECORDS. [facility] [employer] provides no warranty or guarantee of the accuracy or completeness of information in this document.
[2024-12-17 10:05] LABS: Glucose Urine UA 100 mg/dL (NEGATIVE)
[2024-12-17 10:12] LABS: Cast Seen? NONE SEEN #/LPF (NONE SEEN); Crystals Seen? None Seen #/HPF (None Seen); Urine Culture Indicated ALREADY ORDERED
== END 2024-12-17 09:13 | disposition home or self-care (01) ==
LOC: LAB 09:13
PROVIDERS: PCP Family Medicine; Visit Provider Family Medicine
DX: R31.9 Hematuria, unspecified (principal)
CPT/HCPCS: 81001; 87086

== ENCOUNTER 2025-03-11 09:50 | Outpatient (OUT) | payer OTHER, SELFPAY ==
--- OUTSIDE RECORDS SUMMARY | 2025-03-11 09:54 | XMS_ITS | Clinical Summary ---
Author Organization [facility] tem Address [id number] [address] [place] [address] Care Team Providers Care Security Guard Name Role Phone Stanley Feliz MD Primary Care Provider [phone] Allergies Active AllergyReactionsCriticalityNoted XiclOjuqhfkeMbccyqdcwkx31/22/2022 Medications MedicationSigDispense QuantityRefillsLast FilledStart DateEnd DateStatus glimepiride (AmaryL) 1 mg tablet Take 1 tablet (1 mg total) by mouth every morning before breakfast.11/08/2022 Active polyethylene glycol (GLYCOLAX) 17 gram/dose powder Take 17 g by mouth in the morning. 527 g 10/26/2023ctive Active Problems ProblemNoted DateDiagnosed DateKidney stone08/27/2023 Overview (06/01/2024): 08/27/23: CT 08/23/2023 showed a 6 mm stone in the proximal left ureter and a punctate nonobstructingstone in the left kidney. He passed the [...] will call sooner if any problems. Urinary nguytrzms60/22/2022 Overview (08/07/2021): 06/12/21: Lower urinary tract symptoms. [...] in symptoms. Can followup prn Prostate cancer bxxldtvca93/22/2022 Family History Medical HistoryRelationNameCommentsDiabetesFatherDiabetesMotherHypertension MotherOtherMotherbreathing problemsRelationNameStatusCommentsFatherAliveMother Alive Social History Tobacco UseTypesPacks/DayYears UsedDateSmoking Tobacco: NeverSmokeless Tobacco: Never Tobacco Cessation:Counseling Given: Not Answered Alcohol UseStandard Drinks/WeekCommentsYes0 (1 standard drink = 0.6 oz pure alcohol)sociallyChildcareAnswerDate EhrpksnuNkvxcersqTpnkwrb50/10/2019Employment AnswerDate VwsxigpbZyasixzzsdUetjwsu57/10/2019Hunger ScreeningAnswerDate RecordedWithin the past 12 months we worried whether our food would run out before we got money to buy more.Never True06/01/2024Within the past 12 months the food we bought just didn't last and we didn't have money to get more.Never True06/01/2024Sex and Gender InformationValueDate RecordedSex Assigned at Not on fileLegal PhrFszb1211/22/2014 11:57 AM EDTGender IdentityNot on fileSexual OrientationNot on file Last Filed Vital Signs Vital SignReadingTime TakenCommentsBlood Inkhpnnr643/9207 9:01 AM EDT Agwjh37613 9:01 AM SDOQjfhaanutxw29.8 ??C (98.3 ??F)10/26/2023 9:01 AM EDTRespiratory Okez480410/26/2023 9:01 AM EDTOxygen Ikiyywxnvi06%10/26/2023 9:01 AM EDTInhaled Oxygen Concentration--Dcuqlg820.1 kg (267 lb)06/01/2024 3:33 PM KSABcktoi001.8 cm (5' 10 )06/01/2024 3:33 PM ESTBody Mass Index38.31006/01/2024 3:33 PM EST Plan of Treatment DateTypeDepartmentCare Team (Latest Contact Info)Nymsmoanjeq48/17/2026 2:45 PM ESTOffice Visit [facility] [address] [place] [address] [address] [facility] [place] [address] Erlin Xiong MD [address] [place] [address] Health MaintenanceDue DateLast DoneCommentsDepression Nokgazmyc51/12/1989Adult BMI Follow Up Plan1995DTaP,Tdap and Td Vaccines (1 - Tdap)01/31/1996COVID- 19 Vaccine ( season)/, 11/29/2021, 05/02/2021, Additional history existsInfluenza Pmiswlt31/, 01/22/2021dult BMI Qyvulsloe86/02/2025Tobacco Etscewvpr25 [employer] Not on file Insurance Care Teams Team MemberRelationshipSpecialtyStart Date Stanley Feliz MD [facility] - [facility]/23
--- OUTSIDE RECORDS SUMMARY | 2025-03-11 09:54 | XMS_ITS | Clinical Summary ---
Author Organization [facility] Address [address], [address] [place] [address] Care Team Providers Care Weather Strip Installer Name Role Phone Stanley Feliz MD Primary Care Provider [phone] Allergies Active AllergyReactionsCriticalityNoted TcpbFrcdjgthHviuitgyzas52/22/2022 Medications MedicationSigDispense QuantityRefillsLast FilledStart DateEnd DateStatus glimepiride (AMARYL) 1 MG tablet Take 1 tablet by mouth daily11/08/2022ctive pantoprazole (PROTONIX) 40 MG tablet Take 1 tablet by mouth daily10/24/2022ctive Active Problems ProblemNoted DateDiagnosed DateUrinary bsmicppmb91/22/2022 Overview (11/22/2022): 06/12/21: Lower urinary tract symptoms. Multifactorial however [...] symptoms. Can followup prn Family History Medical HistoryRelationNameCommentsCancerMotherbladderDementiaMotherDiabetes MotherInflam Bowel DisPaternal GrandfatherRelationNameStatusCommentsFatherAlive MotherDeceasedPaternal GrandfatherDeceased Social History Tobacco UseTypesPacks/DayYears UsedDateSmoking Tobacco: NeverSmokeless Tobacco: Never Tobacco Cessation:Counseling Given: Not Answered Alcohol UseStandard Drinks/WeekCommentsYes0 (1 standard drink = 0.6 oz pure alcohol)occasionalSex and Gender InformationValueDate RecordedSex Assigned at BirthNot on fileLegal NzdJhyg1211/15/2022 9:14 AM EDTGender IdentityNot on file Sexual OrientationNot on file Last Filed Vital Signs Vital SignReadingTime TakenCommentsBlood Qxeewkmj313/8404/25/2023 9:10 AM EST Eekmk083704/25/2023 9:10 AM CCCPztexxmjxuo53.4 ??C (97.6 ??F)04/25/2023 9:10 AM ESTRespiratory Skvs197904/25/2023 9:10 AM ESTOxygen Javllpyifb73%01/14/2023 9:06 AM EDTInhaled Oxygen Concentration--Zpdfjs779.9 kg (271 lb)04/25/2023 9:10 AM FXOHwydze664.8 cm (5' 10 )04/25/2023 9:10 AM ESTBody Mass Index38.8804/25/2023 9:10 AM EST Plan of Treatment Health MaintenanceDue DateLast DoneCommentsDepression Vmhyai9501/30/1989HIV screen 01/31/1992Hepatitis C rzofxd2401/30/1995DTaP/Tdap/Td vaccine (1 - Tdap)01/31/1996 Hepatitis B vaccine (1 of 3 - 19+ 3-dose series)01/31/19967250Fsjpit52/12/2017 Jqcapegifag52/12/2022olorectal Cancer Qpaitp1201/30/2022FIT/FOBT: Average risk 2022Fecal-DNA (Cologuard): Average risk2022igmoidoscopy/CT zjpsndcihjgz31/12/2022Flu vaccine (#1), 1COVID-19 Vaccine ( season), 11/29/2021, 05/02/2021, Additional history existsHepatitis A vaccineAged OutNo longer eligible based on patient's age to complete this topicHib vaccineAged OutNo longer eligible based on patient's age to complete this topicMeningococcal (ACWY) vaccineAged OutNo longer eligible based on patient's age to complete this topicMeningococcal B vaccineAged OutNo longer eligible based on patient's age to complete this topic Pneumococcal 0-49 years VaccineAged OutNo longer eligible based on patient's age to complete this topicPolio vaccineAged OutNo longer eligible based on patient's age to complete this topic Insurance Care Teams Team MemberRelationshipSpecialtyStart DateEnd Stanley Feliz MD [address] [place] [address] PCP - GeneralFamily Medicine11/15/22
--- OUTSIDE RECORDS SUMMARY | 2025-03-11 09:54 | XMS_ITS | Clinical Summary ---
Author Organization [facility] Address [address] [place] [address] Care Team Providers Care Casing Sewer Name Role Phone Stanley Feliz MD Primary Care Provider [phone] Allergies Active AllergyReactionsCriticalityNoted UzoxNsvqblesWhuogwixkow01/22/2022 Medications MedicationSigDispense QuantityRefillsLast FilledStart DateEnd DateStatus tamsulosin (Flomax) 0.4 MG 24 hr capsule Take 0.4 mg by mouth in the morning.08/23/2023ctive cetirizine (ZyrTEC) 10 MG tablet Take 20 mg by mouth Daily11/13/2023ctive glimepiride (Amaryl) 1 MG tablet Take 1 mg by mouth in the morning. Take before meals.11/16/2023ctive pantoprazole (ProtoNix) 40 MG EC tablet Take 40 mg by mouth Daily09/19/2023ctive fluticasone (Flonase) 50 MCG/ACT nasal spray Indications:ETD (Eustachian tube dysfunction), bilateralAdminister 2 sprays into each nostril Daily Shake gently. Before first use, prime pump. After use, clean tip and replace cap. 16 g 11011/24/2023ctive montelukast (Singulair) 10 MG tablet Take 10 mg by mouth Daily02/02/2024ctive Active Problems ProblemNoted DateDiagnosed FbpbTcjb03/31/6564Xevapzwgtilf36/31/2024Sepsis 11/19/2023OVID-19011/19/20239194Jnotsgcqrojzo39/31/6257Xpfrdoqabs94/31/2024cute nontraumatic kidney mqnzjc8211/19/2023Sinus pscircsbcds37/31/2024GERD (gastroesophageal reflux disease)11/19/20235649Pwkrtxisdr00/31/2024Lumbar disc zitmtck7711/19/20238578Wesaajvbxnad13/31/8807Rluexmwlq56/31/2024cute cystitis without zzipootlh69/31/2024cute bugueckug30/31/2024IBS (irritable bowel syndrome) 11/19/20234740Dqaqaifebltgml36/31/3112Djpibgxmdejhrvzkiefn72/31/2024orderline diabetes wthwcykp97/31/9787Mtqzxxpu51/31/2024Migraine uwykhnql85/31/2024 Vcsweueiwgpe69/31/9192Cbag-Isfmu-Bltedwu disease (HHS-HCC)11/19/2023Kidney stone 08/27/2023 Overview (11/19/2023): 08/27/23: CT 08/23/2023 [...] call sooner if any problems. Prostate cancer /22/2022Urinary fogbzdwci49/22/2022 Overview (11/19/2023): 06/12/21: Lower urinary tract symptoms. [...] symptoms. Can followup prn Family History Medical HistoryRelationNameCommentsDiabetes type FMDytexfev2CudtpvhaHibecv Chronic kidney diseaseMotherDiabetesMotherHTNMotherRelationNameStatusComments BrotherAliveFatherAliveMotherDeceasedSisterAlive Social History Tobacco UseTypesPacks/DayYears UsedDateSmoking Tobacco: NeverSmokeless Tobacco: Never Tobacco Cessation:Counseling Given: Not Answered Alcohol UseStandard Drinks/WeekCommentsYes0 (1 standard drink = 0.6 oz pure alcohol)Sex and Gender InformationValueDate RecordedSex Assigned at BirthNot on fileLegal YlgVurt8207/03/2022 6:52 PM EDTGender IdentityNot on fileSexual OrientationNot on file Last Filed Vital Signs Vital SignReadingTime TakenCommentsBlood Vhobmryt343/7611 8:34 AM EST Pulse--Temperature--Respiratory Rate--Oxygen Saturation--Inhaled Oxygen Concentration--Wfshth486 kg (273 lb)11/24/2023 2:19 PM YKWCwkgbh651.8 cm (5' 10 )02/27/2024 8:34 AM ESTBody Mass Index39.1708 2:19 PM EDT Plan of Treatment Not on file Insurance Care Teams Team MemberRelationshipSpecialtyStart DateEnd Stanley Feliz MD PCP - GeneralFamily Medicine11/14/23
--- OUTSIDE RECORDS SUMMARY | 2025-03-11 09:54 | XMS_ITS | Clinical Summary ---
Author Organization [facility] Address [address] [place] [address] Care Team Providers Care Superintendent Job Name Role Phone Unavailable Primary Care Provider Unavailabl e Social History Tobacco UseTypesPacks/DayYears UsedDateSmoking Tobacco: Never AssessedSex and Gender InformationValueDate RecordedSex Assigned at BirthNot on fileLegal Sex Male10/17/2021 10:37 PM EDTGender IdentityNot on fileSexual OrientationNot on file Plan of Treatment Not on file
--- OUTSIDE RECORDS SUMMARY | 2025-03-11 09:54 | XMS_ITS | Patient Health Record ---
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 Name Role Phone Nicola Ho Primary Care Provider [phone] Allergies Allergen (clinical drug ingredient) Drug/Non Drug Allergy documented on EMR Reaction Allergy Type Onset Date Status PenicillinrashDrug AllergyActive Results Component Value Reference Range Notes UA (Urinalysis, Dipstix only - w/o micro) Reviewed date:07/22/2024 05:17:41 PM Interpretation: Performing Lab: Notes/Report: COLOR yellow Yellow - Ivette - CLARITYclearClear - ClearGLUCOSE++0 - 133 MG/DLALBUMINnNEG - NEG MG/DLBILIRUBINn NEG - NEG MG/DLSPECIFIC GRAVITY1.0101.001 - 1.035KETONESnNEG - NEG MG/DLBLOOD, URnPH, UR55 - 0RKHICTCPRQBs3.2 - 1 MG/DLNITRITEnNEG - NEGESTERASE (GURDEEP)nNEG - NEG MG/DLUA DIP NONAUTO WO MICRO (41969) - IN OFFICE Reviewed date:12/05/2024 01:19:40 PM Interpretation: Performing Lab: Notes/Report: COLORyellowCLARITYclearGLUCOSEnegBILIRUBINnegKETONEnegSPECIFIC GRAVITY1.015BLOOD xboufSH8UEOLLYAvheLCBYBYRMRLNOyljBBKYFTBpfhKVLHHNDFQ ESTERASEnegMR pituitary wo/w con Reviewed date:03/15/2024 02:05:23 PM Interpretation: Performing Lab: Notes/Report: Source Facility: [place] [id number] [address] Magnetic Resonance Report Signed Patient: Shilo Vegas MR#: [id number] : 1975 Acct:[id number] Age/Sex: 49 / M ADM Date: 03/12/24 Loc: MRI Attending Dr: Fer Ho M.D. Ordering Physician: Fer Ho M.D. Date of Service: 03/12/24 Procedure(s): MR pituitary wo/w con Accession Number(s): [id number] cc: Fer Ho M.D. [address] [address] Patient Name: SHILO VEGAS MRN: [id number] date: 1975 Sex: M Assigned Patient Location: MRI Current Patient Location: Accession/Order Number: [id number] Exam Date: 03/12/2024 09:45 Report Date: 03/15/2024 [...] pituitary gland is noted. Electronically authenticated by: JONATHAN WORTHINGTON Date: 03/15/2024 08:11 Dictated By: Jonathan Worthington M.D. Signed By: 03/15/24813 DD/ 0 TD/TT: Gis Technician:CBC AUTO DIFF Reviewed date:12/04/2024 04:40:25 PM Interpretation: Performing Lab: Notes/Report: [facility] ,White Blood Count7.44.0-11.0 10 3/uLRed Blood Count4.974.70-6.10 10 6/uL Unmkxmuebp22.414.0-18.0 g/hYHzjlcfmquh55.442.0-54.0 %Mean Corpuscular Cqobch96.3 80.0-94.0 fLMean Corpuscular Efwszuxicw15.025.9-34.0 pgMean Corpuscular HGB Conc 34.729.9-35.2 g/dLRed Cell Distribution Width13.211.0-15.0 %Platelet Hcypm433 150-450 10 3/uLMean Platelet Volume9.79.5-13.5 fLNeutrophils Percent Auto62.3 43.0-75.0 %Lymphocytes Percent Auto29.020.5-60.0 %Monocytes Percent Auto5.71.7- 12.0 %Eosinophils Percent Auto1.90.9-7.0 %Basophils Percent Auto0.80.2-2.0 % Immature Granulocytes Pct Auto0.30.0-0.5 %Neutrophils Absolute Auto4.61.4-6.5 10 3/uLLymphocytes Absolute Auto2.21.2-3.8 10 3/uLMonocytes Absolute Auto0.40.3-0.8 10 3/uLEosinophils Absolute Auto0.10.0-0.7 10 3/uLBasophils Absolute Auto0.10.0- 0.1 10 3/uLImmature Granulocytes Abs Auto0.020.00-0.03 10 3/uLPerforming Lab:see noteML - [facility] LBFREE T3 Reviewed date:12/04/2024 04:40:25 PM Interpretation: Performing Lab: Notes/Report: [facility] ,Free T32.342.18-3.98 pg/mLPerforming Lab:see note - [facility] LB GLYCOHEMOGLOBIN A1C Reviewed date:12/04/2024 04:40:25 PM Interpretation: Performing Lab: Notes/Report: [facility] ,Glycohemoglobin A1C5.44.5-6.2 % ADA THERAPEUTIC TARGET < 7.0 ACTION SUGGESTED ADA RECOMMENDED LIMIT 4.0 - 6.0 > 7.0 Estimated Average Bdmhtwu140Aicpudrvou Lab:see note - [facility] LB INSULIN Reviewed date:12/05/2024 01:19:40 PM Interpretation: Performing Lab: Notes/Report: [facility] ,Bzgghou81.92.6-24.9 uIU/mL Performed at: [address] [id number] Wireworker: Alonso Hall PhD, Phone: [phone] Performing Lab:[facility]italSW[facility] LBLIPID PROFILE Reviewed date:12/04/2024 04:40:25 PM Interpretation: Performing Lab: Notes/Report: [facility] ,Uubdgdhtscrmw145<=150 mg/aWPulahqdffui550<=200 mg/dLHDL Fegzsudzcgp8364-80 mg/dL <40 mg/dl - HIGH CARDIOVASCULAR RISK > or =60 mg/dl - LOW CARDIOVASCULAR RISK LDL Cholesterol Vxpypzpxvs33.0 >190 mg/dl VERY HIGH 130-159 mg/dl BORDERLINE HIGH 100-129 mg/dl NEAR OR ABOVE OPTIMAL <100 mg/dl OPTIMAL 160-189 mg/dl HIGH VLDL ZLTKSBRIFHJ90.8Chol HDL Ratio4.6 4.4 - 7.1 AVERAGE RISK 7.1 - 11.0 MODERATE RISK 3.3 - 4.4 LOW RISK >11.0 HIGH RISK Performing Lab:[facility] LBPROF 14(COMP METB) Reviewed date:12/04/2024 04:40:25 PM Interpretation: Performing Lab: Notes/Report: [facility] ,Ncgwfz341129-128 mmol/LPotassium4.23.5-5.1 mmol/GFcitquxc46187-739 mmol/LCarbon Typbpfs90.621.0-32.0 mmol/LAnion Gap10.1Bkgzati53183-226 mg/dLBlood Urea Amczoumt07.07.0-18.0 mg/dLCreatinine0.980.70-1.30 mg/dLEstimated GFR ( Lennie>60>=60 mL/min/1.73m 2Estimated GFR (Non- Tonja>60>=60 mL/min/1.73m 2BUN Creatinine Ratio13.1Ehylavy0.78.5-10.1 mg/dLBilirubin Total0.40.2-1.0 mg/dL Aspartate Amino Tmgjfvbevpy3103-42 U/LAlanine Jzuvwlmxgseobwjf2219-83 U/L Alkaline Hjixsvqdmpj8096-753 U/LTotal Protein7.96.4-8.2 g/dLAlbumin Level3.83.4- 5.0 g/dLGlobulin4.1Albumin Globulin Ratio0.9Performing Lab:see noteML - [facility] LBPSA SCREENING Reviewed date:12/04/2024 04:40:25 PM Interpretation: Performing Lab: Notes/Report: [facility] ,Prostate Specific Antigen Scrn0.38<=4.00 ng/mLPerforming Lab:see noteML - [facility] LBT4 Reviewed date:12/04/2024 04:40:25 PM Interpretation: Performing Lab: Notes/Report: [facility] ,T4 Thyroxine9.704.50-12.10 ug/dLPerforming Lab:see noteML - [facility] LBTSH Reviewed date:12/04/2024 04:40:25 PM Interpretation: Performing Lab: Notes/Report: [facility] ,Thyroid Stimulating Hormone2.3280.358-3.740 uIU/mLPerforming Lab:see noteML - [facility] LBUA RANDOM W or MICROSCOPIC Reviewed date:12/17/2024 12:44:54 PM Interpretation: Performing Lab: Notes/Report: [facility] ,Color UrineLT. YELLOWYELLOWClarity UrineCLEARCLEARSpecific [place] Urine1.025 1.005-1.025pH Urine5.55.0-9.0Protein UrineNEGATIVENEG/TRACE mg/dLGlucose Urine IK626CKUECGUG mg/dLBilirubin UrineNEGATIVENEGATIVEKetones UrineNEGATIVENEGATIVE mg/dLBlood UrineNEGATIVENEGATIVENitrite UrineNEGATIVENEGATIVEUrobilinogen Urine 0.20.2-1.0 EU/dLLeukocyte Esterase UrineNEGATIVENEGATIVEWBC Urine0-2NONE SEEN #/HPFRBC Urine0-20-2 #/HPFBacteria UrineTRACENONE SEEN #/HPFMucus UrineNONE SEEN NONE SEENSquamous Epithelial Cell UrineNONE SEENNONE/RARE #/LPFCrystals Seen? None SeenNone Seen #/HPFCast Seen?NONE SEENNONE SEEN #/LPFUrine Culture IndicatedALREADY ORDEREDPerforming Lab:see noteML - [facility] LB Urine Culture - FR Reviewed date:12/20/2024 01:53:55 PM Interpretation: Performing Lab: Notes/Report: [facility] ,Urine Culture - FRMCSee Below For Report Urine Culture - FR No Growth 2 Days Urine Culture - FR Urine Culture - FR No Growth 2 Days Urine Culture - FRMCTesting performed at [facility] Urine Culture - FR No Growth 2 Days Urine Culture - [id number] [place] [address] Urine Culture - FR No Growth 2 Days Performing Lab:see noteML - [facility] ZAKIYAUA DIP NONAUTO WO MICRO (12430) - IN OFFICE Reviewed date:07/22/2024 05:17:41 PM Interpretation: Performing Lab: Notes/Report: COLORyellowCLARITYclearGLUCOSEnBILIRUBINnKETONEnSPECIFIC GRAVITY1.872ZYHORtLK5 PROTEINtraceUROBILINOGENnNITRITE+LEUKOCYTE ESTERASEnUrine Culture - FR Reviewed date:07/26/2024 01:27:25 PM Interpretation: Performing Lab: Notes/Report: [facility] ,Urine Culture - FRMCSee Below For Report Urine Culture - FRMC No Growth 2 Days Urine Culture - FR Urine Culture - FR No Growth 2 Days Urine Culture - FRMCTesting performed at [facility] Urine Culture - FR No Growth 2 Days Urine Culture - [id number] [place] [address] Urine Culture - FR No Growth 2 Days Performing Lab:see noteML - [facility] LBUA RANDOM W or MICROSCOPIC Reviewed date:07/22/2024 05:17:41 PM Interpretation: Performing Lab: Notes/Report: [facility] ,Color UrineLT. YELLOWYELLOWClarity UrineCLEARCLEARSpecific [place] Urine1.020 1.005-1.025pH Urine6.05.0-9.0Protein UrineNEGATIVENEG/TRACE mg/dLGlucose Urine UANEGATIVENEGATIVE mg/dLBilirubin UrineNEGATIVENEGATIVEKetones UrineNEGATIVE NEGATIVE mg/dLBlood UrineNEGATIVENEGATIVENitrite UrineNEGATIVENEGATIVE Urobilinogen Urine0.20.2-1.0 EU/dLLeukocyte Esterase UrineNEGATIVENEGATIVEWBC UrineNONE SEENNONE SEEN #/HPFRBC Urine0-20-2 #/HPFBacteria UrineNONE SEENNONE SEEN #/HPFMucus UrineNONE SEENNONE SEENSquamous Epithelial Cell UrineFEW NONE/RARE #/LPFCrystals Seen?None SeenNone Seen #/HPFCast Seen?NONE SEENNONE SEEN #/LPFUrine Culture IndicatedNOPerforming Lab:see noteML - [facility] LB Reason For Referral No Information Medications Medication SIG (Take, Route, Frequency, Duration) Notes Start Date End Date Status Triamcinolone Acetonide 0.1 % 1 application Exte rnally bid 5ActiveCefdinir 300 MG2 capsule Orally once a day; Duration: 10 days 5ActiveBlood Glucose Test StripActiveBlood Glucose Monitor System w/Deviceas directedActiveGlimepiride 2 MGTAKE 1 TABLET BY MOUTH DAILY WITH BREAKFAST OR THE FIRST MAIN MEAL OF THE DAY; Duration: 90ActiveProtonix 40 MG1 tablet Orally Once a day; Duration: 30 daysActiveLinzess 72 MCG1 capsule at least 30 minutes before the first meal of the day on an empty stomach Orally Once a day; Duration: 30 days4ActiveLancets 30G -as directedActive Social History Tobacco Use: Social History Observation Description Date Details (start date - stop date) Never Smoker NA - NA Tobacco Use/Smoking Question Answer Notes Patient is a nonsmoker Problems Problem Type SNOMED Code ICD Code Onset Dates Problem Status W/U Status Risk Notes Problem Gastro-esophageal re flux disease without esophagitis (711182734) Gastro-esophageal reflux disease without esophagitis (K21.9) ActiveconfirmedProblemPure hyperglyceridemia (871739922)Pure hyperglyceridemia (E78.1)ActiveconfirmedProblemRefractory migraine (823222750)Migraine, unspecified, intractable, without status migrainosus (G43.919)Activeconfirmed ProblemGlaucoma (48555164)Unspecified glaucoma (H40.9)ActiveconfirmedProblem Diverticulitis of colon (488509569)Diverticulitis of intestine, part unspecified, without perforation or abscess without bleeding (K57.92)Active confirmedProblemIrritable bowel syndrome (94710782)Irritable bowel syndrome without diarrhea (K58.9)ActiveconfirmedProblemIntervertebral disc disorder (08589466)Unspecified thoracic, thoracolumbar and lumbosacral intervertebral disc disorder (M51.9)ActiveconfirmedProblemAcute cystitis (81465850)Acute cystitis without hematuria (N30.00)ActiveconfirmedProblemBalanitis (63719625) Balanitis (N48.1)ActiveconfirmedProblemDysphagia (46762636)Dysphagia, unspecified (R13.10)ActiveconfirmedProblemFever (409877850)Fever, unspecified (R50.9)ActiveconfirmedProblemMigraine variant with headache (disorder) (210386065)Migraine headache (G43.909)ActiveconfirmedProblemGastroesophageal reflux disease (918681412)GERD (gastroesophageal reflux disease) (K21.9)Active confirmedProblemHyponatremia (26649690)Hyponatremia (E87.1)Activeconfirmed ProblemEsophageal reflux (098045424)Esophageal reflux (K21.9)Activeconfirmed ProblemGlaucoma (85124955)Glaucoma (H40.9)ActiveconfirmedProblemIrritable bowel syndrome (40207818)IBS (irritable bowel syndrome) (K58.9)ActiveconfirmedProblem Sinus tachycardia (50668867)Sinus tachycardia (R00.0)ActiveconfirmedProblem Hypertriglyceridemia (612369820)Hypertriglyceridemia (E78.1)Activeconfirmed ProblemLeukocytosis (324815363)Elevated WBC count (D72.829)Activeconfirmed ProblemAcute sinusitis (82668432)Acute sinusitis (J01.90)ActiveconfirmedProblem Disorder of lumbar disc (248429739)Lumbar disc disease (M51.9)Activeconfirmed ProblemConstipation (14669251)Constipation (K59.00)ActiveconfirmedProblem Hyperuricemia (85517686)Hyperuricemia (E79.0)ActiveconfirmedProblemWell adult (696901111)Well adult (Z00.00)ActiveconfirmedProblemDiverticulitis (94467768) Diverticulitis (K57.92)ActiveconfirmedProblemOtitis media of left ear (8652029536925778)Left otitis media (H66.92)ActiveconfirmedProblemGallstone (615091459)Gallstone (K80.20)ActiveconfirmedProblemAbnormal glucose level (092945631)Borderline diabetes mellitus (R73.09)ActiveconfirmedProblem Gynecomastia (8920668)Gynecomastia (N62)ActiveconfirmedProblemOverweight (215021622)Over weight (E66.3)ActiveconfirmedProblemSepsis (94745626)Sepsis (A41.9)ActiveconfirmedProblemProstatitis (0768550)Prostatitis (N41.9)Active confirmedProblemAcute urinary tract infection (368573600)Acute UTI (N39.0)Active confirmedProblemPhysical examination procedure (3814762)Physical exam, routine (Z00.00)ActiveconfirmedProblemPituitary gland enlarged (239379758)Enlarged pituitary gland (E23.6)ActiveconfirmedProblemOtitis externa of left ear (8786076319474020)Left otitis externa (H60.92)ActiveconfirmedProblem Aspg-Hfaqn-Akvehao disease (245168470)Ertp-Vgohy-Utrorxq disease (M91.10)Active confirmedProblemAcute nontraumatic kidney injury (333585117223161)Acute nontraumatic kidney injury (N17.9)ActiveconfirmedProblemPrediabetes (080058208) Prediabetes (R73.03)ActiveconfirmedProblemBenign tumor of endocrine pancreas (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)Insulinoma (D13.7)ActiveconfirmedProblemCOVID-19 (181620080)COVID-19 (U07.1)ActiveconfirmedProblemHeadache (91671911)Headache, unspecified (R51.9) ActiveconfirmedProblemDepression (790481130)Depression, unspecified (F32.A) Activeconfirmed Vital Signs Blood pressure diastolic 82 mm Hg 03/11/2025 Dbehxe28 in03/11/2025lood pressure hghxxezb430 mm Hg03/11/20253897Vtpgtj776.9 lbs 03/11/2025BMI40.01 kg/m203/11/2025 Encounters Encounter Location Date Provider Diagnosis [address] [address] 03/11/2025 Nicola Hoy UTI (urinary tract infection), uncomplicated N39.0 and Dysuria R30.[address] [address] 04/15/2024 Nicola Hoy Flank pain R10.9 and Constipation K59.[address] [address] 07/15/2024 Nicola Hoy Frequent urination R 35.0 ; Acute UTI (urinary tract infection) N39.0 and Eczema L30.[address] [address] 07/22/2024 Nicola Hoy Acute cystitis witho ut hematuria N30.[address] [address] 12/03/2024 Nicola Hoy Acute UTI N39.0 ; Constipation K59.00 and Well adult Z00.[address] [address] 02/14/2025 Nicola Hoy Borderline diabetes mellitus R73.09 and Prostatitis N41.[address] [place] [address] 03/15/2024 Nicola Ho [facility] [facility] [place] [address] 04/16/2024oug [facility] [facility] [place] [address]/11/2024Doug [facility] [facility] [place] [address]/Doug HoyHematuria R31.9 Assessments Encounter Date Diagnosis (ICD Code) Assessment Notes Treatment Notes Treatment Clinical Notes Section Notes 04/15/2024 Flank pain (ICD-10 - R10.9) 4Constipation (ICD-10 - K59.00)07/15/2024Frequent urination (ICD-10 - R35.0)5Acute UTI (urinary tract infection) (ICD-10 - N39.0)07/22/2024 Acute cystitis without hematuria (ICD-10 - N30.00)5Acute UTI (ICD-10 - N39.0)5Constipation (ICD-10 - K59.00)02/14/2025orderline diabetes mellitus (ICD-10 - R73.09)02/14/2025Prostatitis (ICD-10 - N41.9)03/11/2025UTI (urinary tract infection), uncomplicated (ICD-10 - N39.0)Drink plenty of water. Avoid drinks like coffee, alcohol and soft frinks, as these can irritate your bladder and aggravate your frequent or urgent need to urinate. Apply a warm heating pad to your abdomen to minimize bladder pressure or discomfort. You have been prescribed antibiotics for a urinarytract infection. Antibiotics may bother your stomach, so try taking them with a light meal (unless instructed otherwise by your pharmacist). It is important to take them until they are finished. You c an use qeyr-bin-lgaaplo acetaminophen or ibuprofen if needed for pain. You should follow up with your Primary Care Physician or return to clinic if not improving in the next 3-5 days.12/04/2024Hematuria (ICD-10 - R31.9)03/11/2025 Dysuria (ICD-10 - R30.0)12/03/2024Well adult (ICD-10 - Z00.00)07/15/2024Eczema (ICD-10 - L30.9) Plan Of Treatment Pending Test Test Name Order Date CMP (COMPLETE METABOLIC PANEL) 4 UA (URINALYSIS, COMPLETE) 12/04/2024 HEMOGLOBIN A1C (GLYCO) 12/03/2024 INSULIN, TOTAL 12/03/2024 LIPID PANEL (CHOL/TRIG/HDL/LDL) 12/04/19 25 PSA, PROSTATE-SPECIFIC ANTIGEN 4 US Renals and Bladder 04/02/2023 T3 FREE, T4 FREE and TSH 06/09/2023 Urinalysis Microscopic 07/22/2024 Urinalysis Microscopic 03/11/2025 Urine Culture 12/04/2024 FECAL OCCULT BLOOD 06/09/2023 MRI pituitary w/wo contrast 02/22/2024 CBC AUTO DIFF 06/09/2023 CULTURE URINE 03/11/2025 CULTURE URINE 07/22/2024 GLYCOHEMOGLOBIN A1C 06/09/2023 LIPID PROFILE 06/09/2023 CT SINUSES WO CON 2024 THYROID PANEL (T4/TSH/FREE T3) 5 PSA, SCREENING 12/03/2024 CMP (COMP MET PLUMMER) w/eGFR CKD-EPI 2024 CBC WITH DIFF 12/03/2024 Insurance Providers Payer Name Payer Address Payer Phone Subscriber Number Group Number Insured Name Patient Relationship to Insured Coverage Start Date Coverage End Date MMO [employer] [address] [place] [address] [id number] Case[employer]ilo Self - patient is the insured 8 Medical (General) History Medical History History ICD Code Acne OweaidlimqefK50.8PgyhsfE59.9COVID-19U07.9SeqiqbehxipakH73.8XegtlhbufyX80.7Acute nontraumatic kidney wkmomtT49.9Sinus xzcbaiihelnC64.0GERD (gastroesophageal reflux disease)K21.9Over rpdrlvM89.3Lumbar disc cqqsbozC40.8FjjwqpcexzidW75.00 GnjvbgltnV93.1Acute cystitis without hroynprjcD72.00Acute wdorprwaxO28.90Well worgeE83.00IBS (irritable bowel syndrome)K58.5MharxqrwpvnbgdU63.92Esophageal fiorwkU25.9Physical exam, vhikjsbM91.07ZbhkltwgdtewkiynwtgaG33.1Borderline diabetes hdbwthgoS19.58OxkcukeuD46.9Migraine nncuqbbkU46.566QsoftmwsklavU11 Ixtv-Bxlvt-Yywqsop lsadeuvN77.10Headache, lrmgrftyfupM87.9Surgical History Surgery Date(Month/Year) EGD Colonoscopy
--- OUTSIDE RECORDS SUMMARY | 2025-03-11 09:57 | XMS_ITS | CCD ---
Author Organization [facility] Care Team Providers Care Operations Inspector Name Role Phone Fer Ho Primary Care Physician NILL, Khadar Reed Attending [...] HOY, FER M Primary Care Unavailable RADHA WILSON I Referring Unavailable HOY, FER M Primary Care Unavailable HOY, FER M Primary Care Unavailable RILEY, ALMA Attending Unavailable ALMA LIN Attending Unavailable ALAM LIN Referring Unavailable HOY, FER M Primary Care Unavailable Fer Ho MD Primary Care Provider [phone] ALONDRASMALCOLMTREY H Attending Unavailable HOY, FER M Referring Unavailable ALISON SAUNDERS Attending Unavailable TIMMIS, TREY H Referring Unavailable TIMMIS, TREY H Attending Unavailable TIMMIS, TREY H Referring Unavailable TIMMIS, TREY H Attending Unavailable HOY, FER M Referring Unavailable Fer Ho MD Primary Care Provider [phone] Fer Ho MD Primary Care Provider [phone] RADHA WILSON I Attending Unavailable HOY, FER M Referring [...] FER M Primary Care Unavailable Allergies Allergy ClassificationReported Allergen(s)Allergy TypeDate of OnsetReaction(s) Facility (4 sources)Acetaminophen / HYDROcodone; Translations: [acetaminophen-hydrocodone]Drug Ziaenfp74-38-7572Enidah (finding)General Surgery [place] (4 sources)Penicillin; Translations: [penicillin]Drug AllergyUnknown (qualifier value)General Surgery [place] (2 sources)Acetaminophen / HYDROcodoneDrug Jcrjdrn88-04-2888Wzs [facility] Repository (5 sources)Penicillins; Translations: [PENICILLINS]Drug allergy (disorder) 69-46-6834Jya [facility] Repository (9 sources)PenicillinsDrug Oqohtxiiwtm60-04-6209[facility] (5 sources)PenicillinsPropensity to adverse reactions to bxsm82-29-9598ZkkEcmlge Health System Medications Current Medications MedicationDrug Class(es)DatesSig (Normalized)Sig (Original)Acidophilus Probiotic Blend (3 sources)Start: 89-59-1094oomc 1 capsule by mouth once dailyAcidophilus Probiotic Blend 1 cap(s), Oral, Daily, Refill(s) 0 Start Date: 09/18/21 Status: Orderedcetirizine hydrochloride 10 mg oral tablet (9 sources)Histamine-1 Receptor AntagonistStart: 33-77-1804xhjn 2 tablets by mouth once dailycetirizine (ZyrTEC) 10 MG tablet Take 20 mg by mouth Daily 11/13/2023 Activeciprofloxacin 3 mg/ml / dexamethasone 1 mg/ml otic suspension (9 sources)Corticosteroid, Quinolone AntimicrobialStart: 11-04-2023 End: 32-37-0365srraiwgbmdura-dexAMETHasone (CiproDEX) otic suspension Administer 4 drops into each ear in the morning and 4 drops before bedtime. 11/04/2023 02/27/2024 Discontinued (Therapy completed)fluticasone propionate 0.05 mg/actuat metered dose nasal spray (14 sources)CorticosteroidStart: 11-24-2023 End: 00-00-9954hitd 2 spray(s) nasal route once dailyfluticasone (Flonase) 50 MCG/ACT nasal spray Indications: ETD (Eustachian tube dysfunction), bilateral Administer 2 sprays into each nostril Daily Shake gently. Before first use, prime pump. After use, clean tip and replace cap. 16 g 11 11/24/2023 11/23/2024 ActiveStart: 11-13-2023 End: 78-83-6861rkez 2 spray(s) nasal route in the morningFlonase Sensimist 27.5 MCG/SPRAY nasal spray Administer 2 sprays into each nostril in the morning. 0 11/13/2023 01/20/2024 Discontinued (Therapy completed)glimepiride 1 mg oral tablet (14 sources)SulfonylureaStart: 57-02-4541fcvo 1 tablet by mouth before mealtime glimepiride (Amaryl) 1 MG tablet Take 1 mg by mouth in the morning. Take before meals. 11/16/2023 Activeketorolac tromethamine 10 mg oral tablet (1 source)Nonsteroidal Anti-inflammatory Drug, Cyclooxygenase InhibitorStart: 08-23-2023 End: 53-95-0757smoa 1 tablet by mouth every six hours as needed for pain ketorolac (TORADOL) 10 mg tablet Take 1 tablet (10 mg total) by mouth every 6 (six) hours as neededfor pain for up to 3 days. 12 tablet 08/23/2023 08/26/2023 Activelinaclotide 0.29 mg oral capsule (8 sources)Guanylate Cyclase-C AgonistStart: 39-35-6048rvwo 1 capsule by mouth once dailyLinzess 290 mcg oral capsule 290 mcg = 1 cap(s), Oral, Daily, Refills(s) 0 Start Date: 09/12/21 Status: OrderedStart: 05-28-2021 End: 15-58-4490lozu 1 capsule by mouth in the morningLINZESS 145 mcg capsule Take 1 capsule (145 mcg total) by mouth in the morning. 05/28/2021 06/01/2024 Discontinuedmetoprolol tartrate 25 mg oral tablet (2 sources)beta-Adrenergic BlockerStart: 44-58-6194wfdn 1 tablet by mouth twice dailyMetoprolol tartrate 25 mg Tab 25 mg = 1 tab(s), Oral, BID, Refills(s) 0 Start Date: 04/12/22 Status: Orderedmontelukast 10 mg oral tablet (2 sources)Leukotriene Receptor AntagonistStart: 12-27-7468qazl 1 tablet by mouth once dailymontelukast (Singulair) 10 MG tablet Take 10 mg by mouth Daily 02/02/2024 Activepantoprazole 40 mg delayed release oral tablet (11 sources)Proton Pump InhibitorStart: 43-11-6823kaan 1 tablet by mouth once dailypantoprazole (ProtoNix) 40 MG EC tablet Take 40 mg by mouth Daily 09/19/2023 ActiveStart: 10-73-3633natu 1 tablet by mouth once dailyProtonix 40 mg Tab-DR 40 mg = 1 tab(s), Oral, Daily, Refills(s) 0 Start Date: 04/12/22 Status: Orderedpolyethylene glycol 3350 33731 mg powder for oral solution (10 sources)Osmotic LaxativeStart: 10-26-2023 End: 32-79-2236kuyqrackxqze glycol (GLYCOLAX) 17 gram/dose powder Take 17 g by mouth in the morning. 527 g 10/26/2023 Activesucralfate 1000 mg oral tablet (1 source)Aluminum ComplexStart: 48-35-8808Angffhir 1 gram Tab 1 gm = 1 tab(s), Oral, QIDACHS, prescribed 05/08/22, Refills(s) 0 Start Date: 05/09/22 Status: Orderedsulfamethoxazole 800 mg / trimethoprim 160 mg oral tablet (2 sources)Dihydrofolate Reductase Inhibitor Antibacterial, Sulfonamide AntimicrobialStart: 08-23-2023 End: 16-94-8871ckgv 1 tablet by mouth once in the morningsulfamethoxazole- trimethoprim (BACTRIM DS) 800-160 mg per tablet Take 1 tablet by mouth in the morning and 1 tablet before bedtime. Do all this for 7 days. 14 tablet 08/23/2023 08/30/2023 Active Completed/Discontinued Medications MedicationDrug Class(es)DatesSig (Normalized)Sig (Original)hyoscyamine sulfate 0.125 mg sublingual tablet (5 sources)Start: 10-03-2023 End: 72-50-6665qbvg 1 tablet by mouth every four hours as neededhyoscyamine (Levsin) 0.125 MG SL tablet Take 0.125 mg by mouth every 4 (four) hours if needed 10/03/2023 01/20/2024 Discontinued (Therapy completed)levoFLOXacin 750 mg oral tablet (5 sources)Quinolone AntimicrobialStart: 11-06-2023 End: 71-43-4557kwsaEXTJawpu (Levaquin) 750 MG tablet Take 250 mg by mouth 1 (one) time each day at the same time 11/06/2023 01/20/2024 Discontinued (Therapy completed)metFORMIN hydrochloride 500 mg oral tablet (8 sources)BiguanideStart: 05-24-2021 End: 87-61-8483dsip 1 tablet by mouth in the morning, then take 1 tablet by mouth at bedtimemetFORMIN (GLUCOPHAGE) 500 mg tablet Take 1 tablet (500 mg total) by mouth in the morning and 1 tablet (500 mg total) before bedtime. 05/24/2021 06/01/2024 DiscontinuedpredniSONE 10 mg oral tablet (5 sources)Start: 11-13-2023 End: 23-46-4916emdq 1 tablet by mouth once dailypredniSONE (Deltasone) 10 MG tablet Take 10 mg by mouth Daily 11/13/2023 01/20/2024 Discontinued (Therapy completed)tamsulosin hydrochloride 0.4 mg oral capsule (14 sources)alpha-Adrenergic BlockerStart: 08-23-2023 End: 95-63-2961fnsg 1 capsule by mouth in the morningtamsulosin (FLOMAX) 0.4 mg capsule Take 1 capsule (0.4 mg total) by mouth in the morning. 14 capsule 08/23/2023 06/01/2024 Discontinued Problems Active Problems Problem ClassificationProblemDateDocumented DateEpisodic/ChronicCoagulation and hemorrhagic disorders (1 source)Thrombocytopenia, unspecified; Translations: [THROMBOCYTOPENIA UNSPECIFIED]Onset: 81-11-3280MqzywxhYnwzdmusgz associated with dizziness or vertigo (4 sources)Dizziness and giddiness; Translations: [Dizziness and giddiness] 13-96-1204RybkmpwvTgkjftjfpc and other anemia (1 source)Anemia, unspecified; Translations: [ANEMIA UNSPECIFIED]Onset: 30-41-1534XdwaspajHpicmgmd mellitus without complication (4 sources)Diabetes mellitus; Translations: [Type 2 diabetes mellitus without complications]Onset: 567411-78-2968GdueywmIcrfbxrjw congenital anomalies (1 source)Other specified congenital malformations of intestine; Translations: [OTH SPEC CONGEN MALFORM INTESTINE]Onset: 43-30-4756SjtkcfyQsrsesgfo of lipid metabolism (14 sources)Hypertriglyceridemia; Translations: [Pure hyperglyceridemia]Onset: 953088-51-9045WvlpdhxAfajnowtnjowje and diverticulitis (12 sources)Diverticulitis; Translations: [Diverticulitis of intestine, part unspecified, without perforation or abscess without bleeding]Onset: 11-19-2023 28-70-7675ZdswfzzZfxrrdabuq disorders (20 sources)Gastroesophageal reflux disease; Translations: [Gastroesophageal reflux disease without esophagitis]Onset: 541748-32-4396ZbdsbpmJkidznczr hypertension (4 sources)Hypertensive disorder; Translations: [Essential (primary) hypertension]Onset: 691359-00-5389KtchuqySstjntann and duodenitis (1 source)Gastritis, unspecified, without bleeding; Translations: [GASTRITIS UNS WITHOUT BLEEDING]Onset: 13-18-9873XnaqsjucBpsltwui (12 sources)Glaucoma; Translations: [Unspecified glaucoma]Onset: 11-19-2023 53-80-2343QhvnkibHjnrxwzl; including migraine (12 sources)Migraine; Translations: [Migraine, unspecified, not intractable, without status migrainosus]Onset: 227473-11-5782AufizguGlsuetjxfxdj conditions of male genital organs (9 sources)Balanitis; Translations: [Balanitis]Onset: ChronicOther aftercare (1 source)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; Translations: [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]Onset: 31-33-2522HnrcaistQfznp bone disease and musculoskeletal deformities (12 sources)Juvenile osteochondrosis of lower extremity; Translations: [Juvenile osteochondrosis of head of femur [Nwpu-Pbsfr-Adqkiwe], unspecified leg]Onset: 199989-60-6879SlrwjgjXpkdg ear and sense organ disorders (1 source)Asymmetrical sensorineural hearing loss; Translations: [Sensorineural hearing loss, bilateral]27-80-2567IbohqhaJptdq ear and sense organ disorders (2 sources)Bilateral earache; Translations: [Otalgia, bilateral]01-20-2024 EpisodicOther ear and sense organ disorders (2 sources)Impacted cerumen of bilateral ears; Translations: [Impacted cerumen, bilateral]78-78-7092ZwuhvjurSfqrc gastrointestinal disorders (12 sources)Irritable bowel syndrome; Translations: [Irritable bowel syndrome without diarrhea]Onset: 097208-60-8342EpfignzErmpk gastrointestinal disorders (1 source)Altered bowel function; Translations: [Change in bowel habit]Onset: 21-44-2643XvahhozwJpntn gastrointestinal disorders (3 sources)Alteration in bowel nnqseahblpg92-06-4092TfduyqtxEqpyr gastrointestinal disorders (1 source)Mvpjkihmz18-30-8287XyqnvtfrLyefe gastrointestinal disorders (1 source)Dysphagia, unspecified; Translations: [DYSPHAGIA UNSPECIFIED]Onset: 68-89-5983WmkwpbnjCjkwp gastrointestinal disorders (1 source)Abdominal distension (gaseous); Translations: [Abdominal distension (gaseous)]Onset: 64-92-3611KzejdmzjShsaq gastrointestinal disorders (1 source)Constipation, unspecified; Translations: [Constipation, unspecified] Onset: 85-75-5559VdnismufNggsd nutritional; endocrine; and metabolic disorders (2 sources)Obese class II; Translations: [Body mass index (BMI) 38.0-38.9, adult]Onset: 08-92-3896QnhzvoxNuddh nutritional; endocrine; and metabolic disorders (3 sources)Body mass index 30+ - abrndnz06-03-9726FsyfdbyBbhth nutritional; endocrine; and metabolic disorders (1 source)Morbid (severe) obesity due to excess calories; Translations: [MORBID SEVERE OBES D/T EXCESS CHARLEEN]Onset: 28-03-7886ZiefiyuYqycd nutritional; endocrine; and metabolic disorders (1 source)Body mass index (BMI) 38.0-38.9, adult; Translations: [BODY MASS INDEX BMI 38.0-38.9 ADULT]Onset: 13-47-6119OncsalnKzsjf upper respiratory disease (2 sources)Mucocele of maxillary sinus; Translations: [Cyst and mucocele of nose and nasal sinus]67-41-0012PnpfrfncXfhac upper respiratory infections (2 sources)Chronic sinusitis; Translations: [Chronic sinusitis, unspecified] 31-80-2065QdgdzxvAucqfl media and related conditions (1 source)Dysfunction of bilateral eustachian tubes; Translations: [Unspecified Eustachian tube disorder, bilateral]85-93-8403QpyyjlgfCihcgnpe codes; unclassified (1 source)Insomnia, unspecified; Translations: [INSOMNIA UNSPECIFIED]Onset: 42-97-1998NvyeewkrKzalagdcmwk; intervertebral disc disorders; other back problems (11 sources)Disorder of lumbar disc; Translations: [Unspecified thoracic, thoracolumbar and lumbosacral intervertebral disc disorder]Onset: 11-19-2023 23-09-4083CwnaxqmLpbobohdlerl (1 source)PERSONAL HISTORY OF COVID-19; Translations: [PERSONAL HISTORY OF COVID-19]Onset: 69-30-0561Lioawyeyftxl (3 sources)CONTACT W/AND (SUSP) EXPOS COVID-19; Translations: [CONTACT W/AND (SUSP) EXPOS COVID-19]Onset: 57-66-0933Msfnnuqbdplj (1 source)GASTR-ESOPH RFLX DS ESPHGTS W/O BLD; Translations: [GASTR-ESOPH RFLX DS ESPHGTS W/O BLD]Onset: 13-08-9254Kyjqzeeepmtq (1 source)Urinary Frequency, PressureOnset: 87-92-5767Ffmza infection (1 source)COVID-19; Translations: [COVID-19]Onset: 12-14-2021 Past or Other Problems Problem ClassificationProblemDateDocumented DateEpisodic/ChronicAbdominal pain (7 sources)Left lower quadrant pain; Translations: [Left lower quadrant pain] Onset: 52-27-4740LbmaimcjMvuhj and unspecified renal failure (10 sources)Acute kidney failure, unspecified; Translations: [Acute nontraumatic kidney injury]Onset: 764778-01-6622HiaqzrdrCafuvxqk of urinary tract (19 sources)Calculus of kidney; Translations: [Kidney stone]Onset: 08-27-2023 01-88-7011ZcihklclGzsitpy dysrhythmias (9 sources)Sinus tachycardia; Translations: [Tachycardia, unspecified]Onset: 263283-28-9836ObuuaprgTemywlxe mellitus without complication (9 sources)Prediabetes; Translations: [Prediabetes]Onset: EpisodicFluid and electrolyte disorders (11 sources)Hypo-osmolality and hyponatremia; Translations: [Hypokalemia]Onset: 452378-65-4790LkcilchfAjfhszetapshw symptoms and ill-defined conditions (15 sources)Urinary frequency; Translations: [Increased frequency of urination] Onset: 383366-51-6277HuzoxjddBvxhdjkmw of unspecified nature or uncertain behavior (12 sources)Neoplasm of pancreas; 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]Onset: 553846-36-7129UyvrxvmrKfrfoezmqjks breast conditions (12 sources)Gynecomastia; Translations: [Hypertrophy of breast]Onset: 11-19-2023 94-98-2034DyppdivaWecrb gastrointestinal disorders (12 sources)Constipation; Translations: [Constipation, unspecified]Onset: 279650-39-7260RkoxwvseMnkdr gastrointestinal disorders (4 sources)Change in bowel habit; Translations: [CHANGE IN BOWEL HABIT]Onset: 25-11-0545SfsxenuxVdkwr nutritional; endocrine; and metabolic disorders (12 sources)Hyperuricemia; Translations: [Hyperuricemia without signs of inflammatory arthritis and tophaceous disease]Onset: EpisodicOther nutritional; endocrine; and metabolic disorders (9 sources)Overweight; Translations: [Overweight]Onset: EpisodicOther screening for suspected conditions (not mental disorders or infectious disease) (14 sources)Patient encounter status; Translations: [Encounter for screening for malignant neoplasm of prostate]Onset: 898372-56-4783CijwhyzdMtydn skin disorders (9 sources)Acne; Translations: [Acne, unspecified]Onset: EpisodicOther upper respiratory infections (9 sources)Acute sinusitis; Translations: [Acute sinusitis, unspecified]Onset: 969440-85-0550MhmmklckBpmhribmjn (except in labor) (15 sources)Sepsis, unspecified organism; Translations: [Sepsis due to Escherichia coli [E. coli]]Onset: 67-16-9141ZdpjutaoJiodrrtnlpuo (1 source)CONTACT W/AND (SUSP) EXPOS COVID-19; Translations: [CONTACT W/AND (SUSP) EXPOS COVID-19]Onset: 66-85-3559Yhqahli tract infections (16 sources)Tubulo-interstitial nephritis, not specified as acute or chronic; Translations: [Acute pyelonephritis]Onset: 33-95-5498PsaoqyabTnjkd infection (9 sources)Disease caused by 2019-nCoV; Translations: [COVID-19]Onset: 505127-17-4435Qstikbjw Results Test NameValueInterpretationReference RangeFacilityXR PARANASAL SINUSES 3+ VIEWS on 73-15-7977WR PARANASAL SINUSES 3+ VIEWSExam: XR - XRAY SINUSES COMP MIN 3 VIEWS Reason for exam: Imbalance issues, some sinus pressure Prior comparative studies: None Findings: No air-fluid levels are apparent. There is prominent adenoidal tissue versus nasopharyngeal swelling. Orbital structures are unremarkable. IMPRESSION: 1. Prominent adenoids versus nasopharyngeal swelling. Recommend direct clinical correlation to thisarea. If needed, CT could be used to better characterize. Electronically Signed Sam Ring M.D. 2024-01-21 16:12:37NormalNot AvailableAuditory function testson 65-44-6749Xrbes Ear: Mild sensorineural hearing loss above 3K Hz Left Ear: Mild sensorineural hearing loss at 6K Hz only [facility]NOOH HealthcareCT ABDOMEN AND PELVIS WO CONTon 12-14-1007ZU ABDOMEN AND PELVIS WO CONTCT ABDOMEN AND PELVIS WO CONT CT ABDOMEN [...] calculus in the lower pole of the leftkidney without collecting system dilatation. No ureteral or [...] Finalized by Flakito Onofre on 10/26/2023 10:06 AMNormalCleveland Clinic Children's Hospital for RehabilitationURN MACROSCOPIC NURon 85-85-9260FWSTDILWX NURNegativeNormalNEGCleveland Clinic Children's Hospital for RehabilitationComment on above:Performed By: #### NUM #### [facility] ([id number]) [address] [place] [address] 68212GHGTS/HGB NURTraceAbnormalNEGCleveland Clinic Children's Hospital for RehabilitationCombeaumont hospital on above:Performed By: #### NUM #### [facility] ([id number]) [address] [place] [address] 25556VMKKHDK NURNegativeNormalNEGProBaptist Medical CenterComment on above:Performed By: #### NUM #### [facility] ([id number]) [address] [place] [address] [id number] NURNegativeNormalNEGProBaptist Medical CenterComment on above:Performed By: #### NUM #### [facility] ([id number]) [address] [place] [address] 54454RHRTGMBUS ESTERASE NURNegativeNormalNEGCleveland Clinic Children's Hospital for RehabilitationComment on above:Performed By: #### NUM #### [facility] ([id number]) [address] [place] [address] 22682CGFHFBX NURNegativeNormalNEGCleveland Clinic Children's Hospital for RehabilitationComment on above:Performed By: #### NUM #### [facility] ([id number]) [address] [place] [address] [id number] NUR5.0Djbfdp4.0-8.5PWilson HealthComment on above:Performed By: #### NUM #### [facility] ([id number]) [address] [place] [address] 35810JQGOXDD NURNegativeNormalNEGCleveland Clinic Children's Hospital for RehabilitationComment on above:Performed By: #### NUM #### [facility] ([id number]) [address] [place] [address] 24325UUHWUGJD GRAVITY NUR1.315Pugbld4.003-1.035ProBaptist Medical CenterComment on above:Performed By: #### NUM #### [facility] ([id number]) [address] [place] [address] 12652UORXJWOXZOGH NUR0.2 eu/dLNormal<1.1PBethesda North Hospital on above:Performed By: #### NUM #### [facility] ([id number]) [address] [place] [address] 68635SADO Urinalysis Auto, W/O Microscopyon 50-64-3624Rzaxxzjh Poct Urine BilirubinNegativeProMedica Health SystemExternal Poct Urine BloodNegative [facility] SystemExternal Poct Urine GlucoseNegativeProMedica Health SystemExternal Poct Urine KetonesNegativeProMedica Health SystemExternal Poct Urine Leukocyte EsteraseNegativeProMedica Health SystemExternal Poct Urine NitriteNegativeProMedica Health SystemExternal Poct Urine Ph6.0ProMedica Health SystemExternal Poct Urine ProteinNegativeProMedica Health SystemExternal Poct Urine Specific Gravity1.030ProLancaster Municipal Hospitalca Health SystemExternal Poct Urine Urobilinogen0.2PBarnes-Kasson County HospitalXR ABDOMEN AP 1 VW on 28-38-8777ZM ABDOMEN AP 1 VWXR ABDOMEN AP 1 VW Clinical history: A [...] by Poli Villa MD on 10/13/2023 1:14 PMNormalCleveland Clinic Children's Hospital for RehabilitationUA (MICROSCOPIC)on 43-72-0663JNYKOYOQ CASTS1 /ihyVpih0VwvHcxsniCleveland Clinic Children's Hospital for RehabilitationComment on above:Performed By: #### UMIC #### [facility] ([id number]) [address], [address] [place], [place] [address]Tmldcsz casts LM Ql (Urine sed)4 /lpfHigh0-2PWilson HealthComment on above:Performed By: #### UMIC #### [facility] ([id number]) [address], [address] [place], [place] [address]JEGVZGZTQSLGCPbpftydfZTLYTbmWwdcim Fremont HospitalComment on above:Performed By: #### UMIC #### [facility] ([id number]) [address] [place] [address], [address] [place], [place] [address]G.B.CELLS1 /hpfNormal0-5PWilson HealthComment on above:Performed By: #### UMIC #### [facility] ([id number]) [address] [place] [address], [address] [place], [place] [address]TYLCCLOA EPITHELIUM1 /hpfNormal0-5PWilson Health Comment on above:Performed By: #### UMIC #### [facility] ([id number]) [address], [address] [place], [place] [address]O.B.CELLS1 /hpfNormal0-5PWilson HealthComment on above:Performed By: #### UMIC #### [facility] ([id number]) [address], [address] [place], [place] [address]KLNQ Urinalysis Auto, W/O Microscopyon 15-01-6707Sfzrrdeg Poct Urine BilirubinNegativeProSheltering Arms Hospital SystemExternal Poct Urine BloodTrace [facility] SystemExternal Poct Urine GlucoseNegativeNewark HospitalExternal Poct Urine KetonesNegativeAdams County Regional Medical Center SystemExternal Poct Urine Leukocyte EsteraseNegativeAdams County Regional Medical Center SystemExternal Poct Urine NitriteNegativeNewark HospitalExternal Poct Urine Ph6.0New[facility] HospitalExternal Poct Urine ProteinNegativeNewark HospitalExternal Poct Urine Specific Gravity1.025Newark HospitalExternal Poct Urine Urobilinogen0.2PBarnes-Kasson County HospitalCBC W Auto Differential panel (Bld)on 08-23-2023% MID6.2 %NormalGood Samaritan Hospital Comment on above:Performed By: #### 68541-5 #### [facility] ([id number]) [address] [place] [address] 03767XEWEYZVZ MID0.7 x10E9/LNormal0.0-0.9[facility] Comment on above:Performed By: #### 95818-9 #### [facility] ([id number]) [address] [place] [address] 79119Rbsazmvtvgm distribution width (RBC) [Ratio]12.8 %Normal 11.5-15.0Good Samaritan HospitalComment on above:Performed By: #### 42675-1 #### [facility] ([id number]) [address] [place] [address] 70392Thhlpjxqryuj (Bld) [#/Vol]7.1 10*3/uLNormal1.5-7.2ProMedica Mcmillan HospitalComment on above:Performed By: #### 56168-2 #### [facility] ([id number]) [address] [place] [address] 00987Wvtjsbqqitpt/100 WBC (Bld)71.0 %NormalGood Samaritan Hospital Comment on above:Performed By: #### 08050-0 #### [facility] ([id number]) [address] [place] [address] 39171Polivxjqfg (Bld) [Volume fraction]46.9 %Zfjjkz28-03SyeUreqth Mcmillan HospitalComment on above:Performed By: #### 08929-2 #### [facility] ([id number]) [address] [place] [address] 30266Xoerjtlmvo (Bld) [Mass/Vol]15.9 g/nMBjcwas23.0-17.0ProLancaster Municipal Hospitalca Mcmillan HospitalComment on above:Performed By: #### 88313-7 #### [facility] ([id number]) [address] [place] [address] 64120Lgdwzartyik (Bld) [#/Vol]2.3 10*3/uLNormal1.0-3.5ProMedica Mcmillan HospitalComment on above:Performed By: #### 84274-6 #### [facility] ([id number]) [address] [place] [address] 06348Bommhspfjhe/100 WBC (Bld)22.8 %NormalGood Samaritan Hospital Comment on above:Performed By: #### 00078-7 #### [facility] ([id number]) [address] [place] [address] 67526BMS (RBC) [Entitic mass]30.0 acYkflnw07-01ZrpLoggng Mcmillan HospitalComment on above:Performed By: #### 48070-2 #### [facility] [facility] ([id number]) [address] [place] [address] [id number] (RBC) [Mass/Vol]33.9 g/aMIeiyuh37-43UbaUpctql [facility] HospitalComment on above:Performed By: #### 29958-6 #### [facility] ([id number]) [address] [place], [place] [id number] (RBC) [Entitic vol]89 gIGwyaat78-707BgxFdlucc [facility]millan HospitalComment on above:Performed By: #### 53915-1 #### [facility] ([id number]) [address] [place] [address] 69179Mmfeugjb mean volume (Bld) [Entitic vol]8.8 fLNormal7-12 [facility] HospitalComment on above:Performed By: #### 21924-1 #### [facility] ([id number]) [address] [place] [address] 64467Xamrzzqoy (Bld) [#/Vol]180 10*3/xWIxuutu619-870WjzWkrczh [facility]an HospitalComment on above:Performed By: #### 07535-7 #### [facility] ([id number]) [address] [place] [address] 25158IBB6.30 x10E12/LNormal4.10-5.70[facility]millan HospitalComment on above:Performed By: #### 43282-1 #### [facility] ([id number]) [address] [place] [address] 20184IHJ (Bld) [#/Vol]10.1 10*3/uLNormal4.0-11.0[facility]millan HospitalComment on above:Performed By: #### 49580-3 #### [facility] ([id number]) [address] [place] [address] [id number] ABDOMEN AND PELVIS WO CONTon 36-03-0072TI ABDOMEN AND PELVIS WO CONTCT ABDOMEN AND PELVIS WO CONT CLINICAL INFORMATION: [...] The stomach is distended with food material. Echogenicmaterial layering in the gallbladder likely represent gallstones. [...] by Adele Bueno MD on 08/23/2023 6:54 PMNormalGood Samaritan Hospital POC XHGH3th 63-86-0373Xbkmyxhm [Moles/Vol]107 mmol/EKbdtfz06-510KfaKonrgf [place] HospitalComment on above:Performed By: #### IBMP #### [facility] ([id number]) [address] [place] [address] 44186DZ1 [Moles/Vol]24 mmol/UFoihlu49-34DfbCrorwsBucyrus Community Hospital Comment on above:Performed By: #### IBMP #### [facility] ([id number]) [address] [place] [address] 01321Rqrpfbjynr [Mass/Vol]1.0 mg/dLNormal0.7-1.2PBucyrus Community HospitalComment on above:Result Comment: METHOD TRACEABLE TO IDMS STANDARD Performed By: #### IBMP #### [facility] ([id number]) [address] [place] [address] [id number] (CKD-EPI) NON-RACE DEPENDENT>90Normal>59ProKing[facility] [place] HospitalComment on above:Result Comment: Reported eGFR is based on the CKD-EPI 2020 equation that does not use a race coefficient.Performed By: #### IBMP #### [facility] ([id number]) [address] [place] [address] 09843Vljjhil [Mass/Vol]123 mg/rKDbfz94-65UnxQdwsfqGood Samaritan Hospital Comment on above:Performed By: #### IBMP #### [facility] ([id number]) [address] [place] [address] [id number] ICA4.5 mg/dLNormal4.5-5.3PBucyrus Community Hospital Comment on above:Performed By: #### IBMP #### [facility] ([id number]) [address] [place] [address] 76783Jscfewygo [Moles/Vol]4.0 mmol/LNormal3.5-5.0ProKing'[facility] Daughters [facility] [place] HospitalComment on above:Performed By: #### IBMP #### [facility] ([id number]) [address] [place] [address] 99293Oslbil [Moles/Vol]141 mmol/COfiann382-162QdxApjnzt [place] HospitalComment on above:Performed By: #### IBMP #### [facility] ([id number]) [address] [place] [address] 15523Khqv nitrogen [Mass/Vol]20 mg/dLNormal6-23ProKing[facility] [place] HospitalComment on above:Performed By: #### IBMP #### [facility] ([id number]) [address] [place] [address] 53172JQYLX CULTUREon 33-57-2347Bgjzoazh identified Cx Nom (U)CULTURE RESULTS NO GROWTH AT <1000 CFU/mLNormalProMedica Mcmillan HospitalComment on above: Performed By: #### 630-4 #### [facility] ([id number]) [address] [place] [address], [address] [place], [place] [address]SMB MACROSCOPIC NURon 16-40-4521GQXPHLWTC NURNegativeNormalNEG [facility] HospitalComment on above:Performed By: #### NUM #### [facility] ([id number]) [address] [place] [address] 64227XBKEB/HGB NURLargeAbnormalNEGProMedica Mcmillan HospitalComment on above:Performed By: #### NUM #### [facility] ([id number]) [address] [place] [address] 44354OXPBURE NURNegativeNormalNEGProMedica Mcmillan HospitalComment on above:Performed By: #### NUM #### [facility] ([id number]) [address] [place] [address] [id number] NURNegativeNormalNEGProMedica Mcmillan HospitalComment on above:Performed By: #### NUM #### [facility] ([id number]) [address] [place] [address] 62662SJCWTXPDY ESTERASE NURTraceAbnormalNEGProMedica [facility] Comment on above:Performed By: #### NUM #### [facility] ([id number]) [address] [place] [address] 24612NNWBBMI NURNegativeNormalNEGProMedica Mcmillan HospitalComment on above:Performed By: #### NUM #### [facility] ([id number]) [address] [place] [address] 03317CP NUR5.6Wcsalt3.0-8.5[facility] Mcmillan HospitalComment on above: Performed By: #### NUM #### [facility] ([id number]) [address] [place] [address] 06036IASHRDO NUR30 mg/dLAbnormalNEGProOhio Valley Surgical HospitalComment on above:Performed By: #### NUM #### [facility] ([id number]) [address] [place] [address] 67535EZBVGEJK GRAVITY NUR1.486Cyoffh3.003-1.035ProKing'[facility] Daughters [facility] [place] HospitalComment on above:Performed By: #### NUM #### [facility] ([id number]) [address] [place] [address] [id number] NUR0.2 eu/dLNormal<1.1PBucyrus Community Hospital Comment on above:Performed By: #### NUM #### [facility] ([id number]) [address] [place] [address] 45002S. pylori Antigenon 12-07-2022H. pylori AntigenSpecimen Description .FECES Direct Exam NEGATIVE Report Status FINAL 12/07/2022NoBluffton HospitalComment on above: Performed By: #### FHPY #### [facility] [address] [place] [address] Screen And Cyclone Repairer: Eric Blood MD [facility] [address] [place] [address] Screen And Cyclone Repairer: KHANG Turner AUTO DIFFon 27-64-6229RQHL #0.1 103/ulNormal 0.0-0.1The [facility] LimaComment on above:Performed By: #### POCGLUC #### [facility] [address] [place], [place] [address] Dr. Nayely Leessophils/100 WBC (Bld)0.9 %Normal0.2-2.0The [facility] Comment on above:Performed By: #### POCGLUC #### [facility] [address] [place] [address] [address] Nayely Thurman #0.1 103/ulNormal0.0-0.7The [facility] LimaComment on above: Performed By: #### POCGLUC #### [facility] [address] [address] [address] Nayely Darnellosinophils/100 WBC (Bld)2.2 %Normal0.9-7.0The [facility] Comment on above:Performed By: #### POCGLUC #### [facility] [address] [place] [address] Dr. Nayely Darnellrythrocyte distribution width (RBC) [Ratio]13.7 %Cfazvx51.0-15.0 The [facility] LimaComment on above:Performed By: #### POCGLUC #### [facility] [address] [place] [address] Dr. Nayely FerrerHematocrit (Bld) [Volume fraction]42.3 %Zmamio45.0-54.0The [facility] LimaComment on above:Performed By: #### POCGLUC #### [facility] [address] [place] [address] Dr. Nayely FerrerHemoglobin (Bld) [Mass/Vol]13.8 g/dLCritically low14.0-18.0The [facility] LimaComment on above:Performed By: #### POCGLUC #### [facility] [address] [place] [address] Dr. Nayely Glover #0.01 10e3/ulNormal0.00-0.03The [facility] LimaComment on above:Performed By: #### POCGLUC #### [facility] [address] [place] [address] Dr. Nayely Glover %0.2 %Normal0.0-0.5The [facility] LimaComment on above: Performed By: #### POCGLUC #### [facility] [address] [place] [address] Dr. Nayely Munroe #1.8 103/ulNormal1.2-3.8The [facility] LimaComment on above:Performed By: #### POCGLUC #### [facility] [address] [place] [address] Dr. Nayely Ruelasmphocytes/100 WBC (Bld)28.0 %Ojmgzc79.5-60.0The [facility] LimaComment on above:Performed By: #### POCGLUC #### [facility] [address] [place] [address] Dr. Nayely Brandt DIFF REQNONormalThe Lamy HospitalComment on above: Performed By: #### POCGLUC #### [facility] [address] [place] [address] Dr. Nayely Naranjo (RBC) [Entitic mass]28.7 ixJotzcm79.9-34.0The [facility] LimaComment on above:Performed By: #### POCGLUC #### [facility] [address] [place] [address] Dr. Nayely Naranjo (RBC) [Mass/Vol]32.6 g/gZFpttmd29.9-35.2The [facility] LimaComment on above:Performed By: #### POCGLUC #### [facility] [address] [place] [address] Dr. Nayely Naranjo (RBC) [Entitic vol]87.9 xIXqqucw27.0-94.0The [facility] LimaComment on above:Performed By: #### POCGLUC #### [facility] [address] [place] [address] Dr. Nayely Foster #0.3 103/ulNormal0.3-0.8The [facility] LimaComment on above:Performed By: #### POCGLUC #### [facility] [address] [place] [address] Dr. Nayely Noriegaocytes/100 WBC (Bld)4.9 %Normal1.7-12.0The [facility] on above:Performed By: #### POCGLUC #### [facility] [address] [place] [address] Dr. Nayely Sims #4.2 103/ulNormal1.4-6.5The [facility] LimaComment on above:Performed By: #### POCGLUC #### [facility] [address] [place] [address] Dr. Nayely Polancoutrophils/100 WBC (Bld)63.8 %Wdfvnf38.0-75.0The [facility] LimaComment on above:Performed By: #### POCGLUC #### [facility] [address] [place] [address] Dr. Nayely Garcialet mean volume (Bld) [Entitic vol]9.3 fLCritically low 9.5-13.5The [facility] LimaComment on above:Performed By: #### POCGLUC #### [facility] [address] [place] [address] Dr. Nayely FerrerPLT207 103/ctZaxpnn564-288Xpa [facility] LimaComment on above: Performed By: #### POCGLUC #### [facility] [address] [place] [address] Dr. Nayely FerrerRBC4.81 106/ulNormal4.70-6.10The [facility] LimaComment on above:Performed By: #### POCGLUC #### [facility] [address] [place] [address] Dr. Nayely FerrerWBC6.5 103/ulNormal4.0-11.0The [facility] LimaComment on above: Performed By: #### POCGLUC #### [facility] [address] [place] [address] Dr. Nayely FerrerCUJERSEY URINEon 35-53-9434YJRRWTW URINECulture Observations: LIGHT GROWTH OF MIXED SKIN HONG. NO POTENTIAL PATHOGENS SEEN.NormalThe [facility] LimaComment on above:Performed By: #### URCX #### [facility] [address] [place] [address] Dr. Nayely FerrerIROMaria M 15-65-6108Gghv [Mass/Vol]79.0 ug/dTBqxxol70.0-175.0The [facility] LimaComment on above:Performed By: #### POCGLUC #### [facility] [address] [address] [address] Nayely Taylor 14(COMP METB)on 11-29-0747Gdcshgz [Mass/Vol]3.5 g/dLNormal 3.4-5.0The [facility] LimaComment on above:Performed By: #### POCGLUC #### [facility] [address] [address] [address] Nayely FerrerAlbumin/Globulin [Mass ratio]0.7 {ratio}NormalThe [facility] LimaComment on above:Performed By: #### POCGLUC #### [facility] [address] [address] [address] Nayely RogersP [Catalytic activity/Vol]44 U/LCritically olq80-337Ljc [facility] LimaComment on above:Performed By: #### POCGLUC #### [facility] [address] [place] [address] Dr. Nayely RogersT [Catalytic activity/Vol]34 U/RCualrn89-58Fsq [facility] LimaComment on above:Performed By: #### POCGLUC #### [facility] [address] [address] [address] Nayely Marina gap [Moles/Vol]12.1 mmol/LNormalThe [facility] Comment on above:Performed By: #### POCGLUC #### [facility] [address] [place] [address] Dr. Nayely FerrerAST [Catalytic activity/Vol]33 U/OKtzujb77-68Hmo [facility] LimaComment on above:Performed By: #### POCGLUC #### [facility] [address] [address] [address] Nayely FerrerBilirubin [Mass/Vol]0.5 mg/dLNormal0.2-1.0The [facility] Comment on above:Performed By: #### POCGLUC #### [facility] [address] [place] [address] Dr. Nayely FerrerCalcium [Mass/Vol]9.1 mg/dLNormal8.5-10.1[facility] Comment on above:Performed By: #### POCGLUC #### [facility] [address] [address] [address] Nayely FerrerChloride [Moles/Vol]104 mmol/PCuwwad20-145Jic [facility] Comment on above:Performed By: #### POCGLUC #### [facility] [address] [address] [address] Nayely FerrerCO2 [Moles/Vol]27.4 mmol/FHnqcsh54.0-32.0The [facility] Comment on above:Performed By: #### POCGLUC #### [facility] [address] [address] [address] Nayely FerrerCreatinine [Mass/Vol]1.18 mg/dLNormal0.70-1.30The [facility] LimaComment on above:Performed By: #### POCGLUC #### [facility] [address] [address] [address] Adler ChangEGFR-AF INDONESIAN>60Normal>=60The [facility] LimaComment on above:Performed By: #### POCGLUC #### [facility] [address] [address] [address] Nayely DarnellGFR-NON AF INDONESIAN>60Normal>=60The [facility] LimaComment on above:Performed By: #### POCGLUC #### [facility] [address] [address] [address] Nayely FerrerGlobulin (S) [Mass/Vol]4.7 g/dLNormalThe [facility] LimaComment on above:Performed By: #### POCGLUC #### [facility] [address] [address] [address] Nayeyl FerrerGlucose [Mass/Vol]126 mg/dLCritically loqn02-358Fda [facility] LimaComment on above:Performed By: #### POCGLUC #### [facility] [address] [address] [address] Nayely FerrerPotassium [Moles/Vol]3.5 mmol/LNormal3.5-5.1The [facility] Comment on above:Performed By: #### POCGLUC #### [facility] [address] [address] [address] Nayely FerrerProtein [Mass/Vol]8.2 g/dLNormal6.4-8.2The [facility] Comment on above:Performed By: #### POCGLUC #### [facility] [address] [address] [address] Nayely FerrerSodium [Moles/Vol]140 mmol/LXlmbss491-114Paq [facility] Comment on above:Performed By: #### POCGLUC #### [facility] [address] [address] [address] Nayely FerrerUrea nitrogen [Mass/Vol]11.0 mg/dLNormal7.0-18.0The [facility] LimaComment on above:Performed By: #### POCGLUC #### [facility] [address] [place] [address] Dr. Nayely Mccain nitrogen/Creatinine [Mass ratio]9.3 mg/mgNormalThe [facility] LimaComment on above:Performed By: #### POCGLUC #### [facility] [address] [place] [address] Dr. Nayely Villela RANDOM W/MICROSCOPICon 33-16-1418CQETUSOVCTBFDKtugeytnPJGM SEENBerger HospitalComment on above:Performed By: #### POCGLUC #### [facility] [address] [place] [address] Dr. Nayely Gaonairubin Ql (U)NegativeNormalNEGATIVEThe [facility] Comment on above:Performed By: #### POCGLUC #### [facility] [address] [address] [address] Nayely FerrerCASTNONE SEENNormalNONE SEENBerger HospitalComment on above:Performed By: #### POCGLUC #### [facility] [address] [place] [address] Dr. Nayely FerrerClarity (U)CLEARNormalCLEARThe [facility] LimaComment on above: Performed By: #### POCGLUC #### [facility] [address] [place] [address] Dr. Nayely Amoslor (U)LT. YELLOWNormalYELLOWBerger HospitalComment on above:Performed By: #### POCGLUC #### [facility] [address] [address] [address] Nayely FerrerCrystals LM Nom (Urine sed)NONE SEENNormalNONE SEENBerger HospitalComment on above:Performed By: #### POCGLUC #### [facility] [address] [address] [address] Adler ChangEpithelial cells LM Ql (Urine sed)RARENormalNONE SEEN /RAREBerger HospitalComment on above:Performed By: #### POCGLUC #### [facility] [address] [address] [address] Nayely FerrerGlucose Ql (U)>1000AbnormalNEGATIVEBerger HospitalComment on above:Performed By: #### POCGLUC #### [facility] [address] [address] [address] Nayely FerrerHemoglobin Ql (U)NegativeNormalNEGATIVELicking Memorial Hospital on above:Performed By: #### POCGLUC #### [facility] [address] [address] [address] Nayely FerrerKetones Ql (U)TRACEAbnormalNEGATIVEBerger HospitalComment on above:Performed By: #### POCGLUC #### [facility] [address] [address] [address] Nayely FerrerLEUKOCYTESNegativeNormalNEGATIVEBerger HospitalCombeaumont hospital on above:Performed By: #### POCGLUC #### [facility] [address] [address] [address] Nayely FerrerMUCOUSNONE SEENNormalNONE SEENBerger HospitalComment on above:Performed By: #### POCGLUC #### [facility] [address] [address] [address] Nayely FerrerNitrite Ql (U)NegativeNormalNEGATIVEBerger HospitalComment on above:Performed By: #### POCGLUC #### [facility] [address] [address] [address] Nayely FerrerpH (U)5.5 [pH]Normal5-9The [facility] LimaComment on above: Performed By: #### POCGLUC #### [facility] [address] [place] [address] Dr. Nayely FerrerCgkteJQS3-7Omauvo2-8Fbw [facility] LimaComment on above:Performed By: #### POCGLUC #### [facility] [address] [place] [address] Dr. Nayely FerrerSPEC GRAVITY1.808Jpyavq4.005-<=1.025The [facility] LimaComment on above:Performed By: #### POCGLUC #### [facility] [address] [place] [address] Dr. Nayely FerrerUA PROTEINTRACENormalNEGATIVE/ TRACEThe [facility] LimaComment on above:Performed By: #### POCGLUC #### [facility] [address] [place] [address] Dr. Nayely Millsbilinogen Qn (U)0.2 {Ced'U}/dLNormal0.2 - 1.0The [facility] LimaComment on above:Performed By: #### POCGLUC #### [facility] [address] [place] [address] Dr. Nayely FerrerWBC2-5AbnormalNONE SEENThe [facility] LimaComment on above: Performed By: #### POCGLUC #### [facility] [address] [place] [address] Dr. Nayely FerrerCULTURE BLOODon 55-85-5169Uydlwengufq examination of blood, cultureCulture Observations: Positive blood culture. Aerobic bottle. Notified [...] >=4 R C Levofloxacin >=8 R C Trimethoprim/Sulfamethoxazole >=320 R CNormalThe [facility] LimaComment on above:Performed By: #### POCGLUC #### [facility] [address] [place] [address] Dr. Nayely Galeas AUTO DIFFon 62-36-9797NCIE #0.0 103/ulNormal0.0-0.1The [facility] LimaComment on above:Performed By: #### POCGLUC #### [facility] [address] [place] [address] Dr. Nayely FerrerBasophils/100 WBC (Bld)0.3 %Normal0.2-2.0[facility] Comment on above:Performed By: #### POCGLUC #### [facility] [address] [place] [address] Dr. Nayely Thurman #0.1 103/ulNormal0.0-0.7The [facility] LimaComment on above: Performed By: #### POCGLUC #### [facility] [address] [place] [address] Dr. Nayely Darnellosinophils/100 WBC (Bld)0.6 %Critically low0.9-7.0The [facility] LimaComment on above:Performed By: #### POCGLUC #### [facility] [address] [place] [address] Dr. Nayely aDrnellrythrocyte distribution width (RBC) [Ratio]13.8 %Xctyfz39.0-15.0 [facility] HospitalComment on above:Performed By: #### POCGLUC #### [facility] [address] [place] [address] Dr. Nayely FerrerHematocrit (Bld) [Volume fraction]32.4 %Critically low42.0-54.0 [facility] HospitalComment on above:Performed By: #### POCGLUC #### [facility] [address] [address] [address] Nayely FerrerHemoglobin (Bld) [Mass/Vol]10.9 g/dLCritically low14.0-18.0The [facility] LimaComment on above:Performed By: #### POCGLUC #### [facility] [address] [address] [address] Nayely Glover #0.08 10e3/ulCritically high0.00-0.03The [facility] Comment on above:Performed By: #### POCGLUC #### [facility] [address] [place] [address] Dr. Nayely Glover %0.8 %Critically high0.0-0.5The [facility] LimaComment on above:Performed By: #### POCGLUC #### [facility] [address] [place] [address] Dr. Nayely Munroe #1.0 103/ulCritically low1.2-3.8The [facility] Comment on above:Performed By: #### POCGLUC #### [facility] [address] [place] [address] Dr. Nayely Lazarhocytes/100 WBC (Bld)9.7 %Critically low20.5-60.0The [facility] LimaComment on above:Performed By: #### POCGLUC #### [facility] [address] [place] [address] Dr. Nayely LuongUAL DIFF REQNONormalThe [facility] LimaComment on above: Performed By: #### POCGLUC #### [facility] [address] [place] [address] Dr. Nayely Naranjo (RBC) [Entitic mass]29.5 jjHcctxi41.9-34.0The [facility] LimaComment on above:Performed By: #### POCGLUC #### [facility] [address] [place] [address] Dr. Nayely Naranjo (RBC) [Mass/Vol]33.6 g/jEXoanqs36.9-35.2The [facility] LimaComment on above:Performed By: #### POCGLUC #### [facility] [address] [address] [address] Nayely NaranjoV (RBC) [Entitic vol]87.6 zSRfbkyi45.0-94.0The [facility] LimaComment on above:Performed By: #### POCGLUC #### [facility] [address] [place] [address] Dr. Nayely Foster #0.5 103/ulNormal0.3-0.8The [facility] LimaComment on above:Performed By: #### POCGLUC #### [facility] [address] [place] [address] Dr. Nayely Noriegaocytes/100 WBC (Bld)4.9 %Normal1.7-12.0[facility] Comment on above:Performed By: #### POCGLUC #### [facility] [address] [place] [address] Dr. Nayely Sims #8.9 103/ulCritically high1.4-6.5The [facility] Comment on above:Performed By: #### POCGLUC #### [facility] [address] [place] [address] Dr. Nayely Polancoutrophils/100 WBC (Bld)83.7 %Critically high43.0-75.0The [facility] LimaComment on above:Performed By: #### POCGLUC #### [facility] [address] [place] [address] Dr. Nayely Garcialet mean volume (Bld) [Entitic vol]9.9 fLNormal9.5-13.5The [facility] LimaComment on above:Performed By: #### POCGLUC #### [facility] [address] [place] [address] Dr. Nayely FerrerPLT147 103/ulCritically emv046-462Jgk [facility] LimaComment on above:Performed By: #### POCGLUC #### [facility] [address] [place] [address] Dr. Nayely FerrerRBC3.70 106/ulCritically low4.70-6.10The [facility] LimaComment on above:Performed By: #### POCGLUC #### [facility] [address] [address] [address] Nayely FerrerWBC10.7 103/ulNormal4.0-11.0The [facility] LimaComment on above:Performed By: #### POCGLUC #### [facility] [address] [place] [address] Dr. Nayely SandersonF CHEM 8 (BAS METB)on 12-02-6162Qrlst gap [Moles/Vol]15.4 mmol/LNormalThe [facility] LimaComment on above:Performed By: #### POCGLUC #### [facility] [address] [place] [address] Dr. Nayely FerrerCalcium [Mass/Vol]7.9 mg/dLCritically low8.5-10.1The [facility] LimaComment on above:Performed By: #### POCGLUC #### [facility] [address] [place] [address] Dr. Nayely FerrerChloride [Moles/Vol]101 mmol/CYmwpve15-572Thv [facility] Comment on above:Performed By: #### POCGLUC #### [facility] [address] [place] [address] Dr. Nayely FerrerCO2 [Moles/Vol]22.0 mmol/TRjaezm51.0-32.0[facility] Comment on above:Performed By: #### POCGLUC #### [facility] [address] [place] [address] Dr. Nayely FerrerCreatinine [Mass/Vol]1.42 mg/dLCritically high0.70-1.30The [facility] LimaComment on above:Performed By: #### POCGLUC #### [facility] [address] [place] [address] Dr. Nayely Sellers-AF INDONESIAN>60Normal>=60The [facility] LimaComment on above:Performed By: #### POCGLUC #### [facility] [address] [place] [address] Dr. Nayely DarnellGFR-NON AF BUQYXTNP23 mL/min/1.30m3Rwigfwduhe low>=60The [facility] LimaComment on above:Performed By: #### POCGLUC #### [facility] [address] [place] [address] Dr. Nayely FerrerGlucose [Mass/Vol]188 mg/dLCritically jkxz43-260Jvm [facility] LimaComment on above:Performed By: #### POCGLUC #### [facility] [address] [place] [address] Dr. Nayely FerrerPotassium [Moles/Vol]3.4 mmol/LCritically low3.5-5.1The [facility] LimaComment on above:Performed By: #### POCGLUC #### [facility] [address] [place] [address] Dr. Nayely FerrerSodium [Moles/Vol]135 mmol/LCritically bmp361-759Tvb [facility] LimaComment on above:Performed By: #### POCGLUC #### [facility] [address] [place] [address] Dr. Nayely FerrerUrea nitrogen [Mass/Vol]19.0 mg/dLCritically high7.0-18.0The [facility] LimaComment on above:Performed By: #### POCGLUC #### [facility] [address] [place] [address] Dr. Nayely FerrerUrea nitrogen/Creatinine [Mass ratio]13.4 mg/mgNormalThe [facility] LimaComment on above:Performed By: #### POCGLUC #### [facility] [address] [place] [address] Dr. Nayely Galeas AUTO DIFFon [id number] #0.0 103/ulNormal0.0-0.1The [facility] LimaComment on above:Performed By: #### POCGLUC #### [facility] [address] [place] [address] Dr. Nayely FerrerBasophils/100 WBC (Bld)0.2 %Normal0.2-2.0The [facility] Comment on above:Performed By: #### POCGLUC #### [facility] [address] [address] [address] Nayely Thurman #0.0 103/ulNormal0.0-0.7The [facility] LimaComment on above: Performed By: #### POCGLUC #### [facility] [address] [address] [address] Nayely Darnellosinophils/100 WBC (Bld)0.4 %Critically low0.9-7.0The [facility] LimaComment on above:Performed By: #### POCGLUC #### [facility] [address] [address] [address] Nayely Darnellrythrocyte distribution width (RBC) [Ratio]13.5 %Iqhdrd22.0-15.0 [facility]:Performed By: #### POCGLUC #### [facility] [address] [place] [address] Dr. Nayely FerrerHematocrit (Bld) [Volume fraction]35.2 %Critically low42.0-54.0 [facility] HospitalComment on above:Performed By: #### POCGLUC #### [facility] [address] [place] [address] Dr. Nayely FerrerHemoglobin (Bld) [Mass/Vol]11.9 g/dLCritically low14.0-18.0The [facility] on [facility]:Performed By: #### POCGLUC #### [facility] [address] [place] [address] Dr. Nayely Glover #0.07 10e3/ulCritically high0.00-0.03The [facility] Comment on above:Performed By: #### POCGLUC #### [facility] [address] [place] [address] Dr. Nayely Glover %0.6 %Critically high0.0-0.5The [facility] LimaComment on above:Performed By: #### POCGLUC #### [facility] [address] [place] [address] Dr. Nayely Munroe #0.7 103/ulCritically low1.2-3.8The [facility] Comment on above:Performed By: #### POCGLUC #### [facility] [address] [place] [address] Dr. Nayely Ruelasmphocytes/100 WBC (Bld)6.7 %Critically low20.5-60.0The [facility] LimaComment on above:Performed By: #### POCGLUC #### [facility] [address] [place] [address] Dr. Nayely Brandt DIFF REQNONormalThe [facility] LimaComment on above: Performed By: #### POCGLUC #### [facility] [address] [place] [address] Dr. Nayely Naranjo (RBC) [Entitic mass]29.5 ueBglhdo18.9-34.0The [facility] LimaComment on above:Performed By: #### POCGLUC #### [facility] [address] [place] [address] Dr. Nayely Naranjo (RBC) [Mass/Vol]33.8 g/mKCohmgf08.9-35.2The [facility] LimaComment on above:Performed By: #### POCGLUC #### [facility] [address] [place] [address] Dr. Nayely Morrison (RBC) [Entitic vol]87.3 kNRizstm56.0-94.0The [facility] LimaComment on above:Performed By: #### POCGLUC #### [facility] [address] [place] [address] Dr. Nayely Foster #0.6 103/ulNormal0.3-0.8The [facility] LimaComment on above:Performed By: #### POCGLUC #### [facility] [address] [place] [address] Dr. Nayely Noriegaocytes/100 WBC (Bld)5.6 %Normal1.7-12.0[facility] Comment on above:Performed By: #### POCGLUC #### [facility] [address] [place] [address] Dr. Yilan ChangNEUT #9.6 103/ulCritically high1.4-6.5The [facility] Comment on above:Performed By: #### POCGLUC #### [facility] [address] [place] [address] Dr. Nayely Thurmanophils/100 WBC (Bld)86.5 %Critically high43.0-75.0The [facility] LimaComment on above:Performed By: #### POCGLUC #### [facility] [address] [place] [address] Dr. Nayely Chopra mean volume (Bld) [Entitic vol]9.6 fLNormal9.5-13.5The [facility] LimaComment on above:Performed By: #### POCGLUC #### [facility] [address] [place] [address] Dr. Nayely FerrerPLT133 103/ulCritically xfh428-922Jok [facility] LimaComment on above:Performed By: #### POCGLUC #### [facility] [address] [place] [address] Dr. Nayely FerrerRBC4.03 106/ulCritically low4.70-6.10The [facility] LimaComment on above:Performed By: #### POCGLUC #### [facility] [address] [place] [address] Dr. Nayely FerrerWBC11.1 103/ulCritically high4.0-11.0[facility] HospitalComment on above:Performed By: #### POCGLUC #### [facility] [address] [place] [address] Dr. Nayely Temple BLOODon 53-21-1130Jwzgbmntqrm examination of blood, cultureCulture Observations: Aerobic and Anaerobic bottles positive; BCID: [...] >=4 R F Levofloxacin >=8 R F Trimethoprim/Sulfamethoxazole >=320 R FNormalBerger HospitalCombeaumont hospital on above:Performed By: #### [id number] #### [facility] [address] [place] [address] Dr. Nayely Temple URINEon 94-99-6935RLZVTPJ URINEIsolate 1 Escherichia coli >100,000 cfu/mL of ORGANISM [...] >=8 R F Nitrofurantoin <=16 S F Trimethoprim/Sulfamethoxazole >=320 R FNormalBerger HospitalComment on above:Performed By: #### URCX #### [facility] [address] [place] [address] Dr. Nayely FerrerPOINT [facility] GLUCOSEon 70-57-5386Dfpprwm [Mass/Vol]187 mg/dL Critically nhqo08-683VncBerger HospitalComment on above:Performed By: #### POCGLUC #### [facility] [address] [place] [address] Dr. Nayely FerrerGlucose [Mass/Vol]188 mg/dLCritically gzyz87-441GafBerger HospitalComment on above:Performed By: #### POCGLUC #### [facility] [address] [place] [address] Dr. Nayely FerrerGlucose [Mass/Vol]251 mg/dLCritically hwft59-756OamBerger HospitalCombeaumont hospital on above:Performed By: #### POCGLUC #### [facility] [address] [place] [address] Dr. Nayely FerrerGlucose [Mass/Vol]239 mg/dLCritically brmn05-094Lzg [facility] LimaComment on above:Performed By: #### POCGLUC #### [facility] [address] [address] [address] Nayely SandersonF CHEM 8 (BAS METB)on 44-25-6447Wcjlw gap [Moles/Vol]16.0 mmol/LNormalThe [facility] LimaComment on above:Performed By: #### POCGLUC #### [facility] [address] [place] [address] Dr. Nayely FerrerCalcium [Mass/Vol]8.3 mg/dLCritically low8.5-10.1The [facility] LimaComment on above:Performed By: #### POCGLUC #### [facility] [address] [place] [address] Dr. Nayely FerrerChloride [Moles/Vol]100 mmol/UIrcuos31-457Fkz [facility] Comment on above:Performed By: #### POCGLUC #### [facility] [address] [place] [address] Dr. Nayely FerrerCO2 [Moles/Vol]21.3 mmol/PCeaava98.0-32.0[facility] Comment on above:Performed By: #### POCGLUC #### [facility] [address] [place] [address] Dr. Nayely FerrerCreatinine [Mass/Vol]1.51 mg/dLCritically high0.70-1.30The [facility] LimaComment on above:Performed By: #### POCGLUC #### [facility] [address] [place] [address] Dr. Nayely DarnellGFR-AF INDONESIAN>60Normal>=60The [facility] LimaComment on above:Performed By: #### POCGLUC #### [facility] [address] [place] [address] Dr. Nayely DarnellGFR-NON AF MSOHLWEG22 mL/min/1.46p4Ofzjienojn low>=60The [facility] LimaComment on above:Performed By: #### POCGLUC #### [facility] [address] [place] [address] Dr. Yilan ChangGlucose [Mass/Vol]237 mg/dLCritically pzct63-403Wes [facility] LimaComment on above:Performed By: #### POCGLUC #### [facility] [address] [place] [address] Dr. Nayely FerrerPotassium [Moles/Vol]3.3 mmol/LCritically low3.5-5.1The [facility] LimaComment on above:Performed By: #### POCGLUC #### [facility] [address] [place] [address] Dr. Nayely FerrerSodium [Moles/Vol]134 mmol/LCritically foy200-950Mul [facility] LimaComment on above:Performed By: #### POCGLUC #### [facility] [address] [place] [address] Dr. Nayely FerrerUrea nitrogen [Mass/Vol]20.0 mg/dLCritically high7.0-18.0The [facility] LimaComment on above:Performed By: #### POCGLUC #### [facility] [address] [place] [address] Dr. Nayely FerrerUrea nitrogen/Creatinine [Mass ratio]13.2 mg/mgNormalThe [facility] LimaComment on above:Performed By: #### POCGLUC #### [facility] [address] [place] [address] Dr. Nayely Galeas AUTO DIFFon [id number] #0.0 103/ulNormal0.0-0.1The [facility] LimaComment on above:Performed By: #### POCGLUC #### [facility] [address] [place] [address] Dr. Nayely FerrerBasophils/100 WBC (Bld)0.3 %Normal0.2-2.0The [facility] Comment on above:Performed By: #### POCGLUC #### [facility] [address] [place] [address] Dr. Adler ChangEO #0.0 103/ulNormal0.0-0.7The [facility] LimaComment on above: Performed By: #### POCGLUC #### [facility] [address] [place] [address] Dr. Nayely aDrnellosinophils/100 WBC (Bld)0.1 %Critically low0.9-7.0The [facility] LimaComment on above:Performed By: #### POCGLUC #### [facility] [address] [place] [address] Dr. Nayely Darnellrythrocyte distribution width (RBC) [Ratio]13.4 %Cnystp09.0-15.0 [facility] HospitalComment on above:Performed By: #### POCGLUC #### [facility] [address] [place] [address] Dr. Nayely FerrerHematocrit (Bld) [Volume fraction]33.0 %Critically low42.0-54.0 [facility] HospitalComment on above:Performed By: #### POCGLUC #### [facility] [address] [place] [address] Dr. Nayely FerrerHemoglobin (Bld) [Mass/Vol]11.4 g/dLCritically low14.0-18.0The [facility] LimaComment on above:Performed By: #### POCGLUC #### [facility] [address] [place] [address] Dr. Nayely Glover #0.06 10e3/ulCritically high0.00-0.03[facility] Comment on above:Performed By: #### POCGLUC #### [facility] [address] [place] [address] Dr. Nayely Glover %0.5 %Normal0.0-0.5The [facility] on above: Performed By: #### POCGLUC #### [facility] [address] [place] [address] Dr. Nayely Munroe #0.8 103/ulCritically low1.2-3.8The [facility] Comment on above:Performed By: #### POCGLUC #### [facility] [address] [place] [address] Dr. Nayely Ruelasmphocytes/100 WBC (Bld)6.7 %Critically low20.5-60.0The [facility] LimaComment on above:Performed By: #### POCGLUC #### [facility] [address] [place] [address] Dr. Nayely rBandt DIFF REQNONormalThe [facility] LimaComment on above: Performed By: #### POCGLUC #### [facility] [address] [place] [address] Dr. Nayely Naranjo (RBC) [Entitic mass]29.9 ywZvxfot71.9-34.0The [facility] LimaComment on above:Performed By: #### POCGLUC #### [facility] [address] [place] [address] Dr. Nayely Naranjo (RBC) [Mass/Vol]34.5 g/bQTvchok97.9-35.2The [facility] LimaComment on above:Performed By: #### POCGLUC #### [facility] [address] [place] [address] Dr. Nayely Naranjo (RBC) [Entitic vol]86.6 oSHxzsye03.0-94.0The [facility] LimaComment on above:Performed By: #### POCGLUC #### [facility] [address] [place] [address] Dr. Nayely Foster #0.7 103/ulNormal0.3-0.8The [facility] LimaComment on above:Performed By: #### POCGLUC #### [facility] [address] [place] [address] Dr. Nayely Noriegaocytes/100 WBC (Bld)5.6 %Normal1.7-12.0[facility] Comment on above:Performed By: #### POCGLUC #### [facility] [address] [place] [address] Dr. Nayely Sims #10.4 103/ulCritically high1.4-6.5The [facility] Comment on above:Performed By: #### POCGLUC #### [facility] [address] [place] [address] Dr. Yilan ChangNeutrophils/100 WBC (Bld)86.8 %Critically high43.0-75.0The [facility] LimaComment on above:Performed By: #### POCGLUC #### [facility] [address] [place] [address] Dr. Nayely Garcialet mean volume (Bld) [Entitic vol]9.6 fLNormal9.5-13.5The [facility] LimaComment on above:Performed By: #### POCGLUC #### [facility] [address] [place] [address] Dr. Nayely FerrerPLT113 103/ulCritically hlo056-537Xqc [facility] LimaComment on above:Performed By: #### POCGLUC #### [facility] [address] [place] [address] Dr. Nayely FerrerRBC3.81 106/ulCritically low4.70-6.10The [facility] LimaComment on above:Performed By: #### POCGLUC #### [facility] [address] [place] [address] Dr. Nayely FerrerWBC12.0 103/ulCritically high4.0-11.0The [facility] LimaComment on above:Performed By: #### POCGLUC #### [facility] [address] [place] [address] Dr. Nayely FerrerCULTURE BLOODon 36-87-0596Kfzbgcblvqi examination of blood, cultureCulture Observations: NO GROWTH AT 5 DAYS. Isolate 1 BC_BA_NANormalThe [facility] LimaComment on above:Performed By: #### [id number] #### [facility] [address] [place] [address] Dr. Nayely FerrerOCC BLD IMMUNOASSAYon 52-72-4792FZDDWN BLOODPositiveAbnormal NEGATIVEBerger HospitalComment on above:Performed By: #### POCGLUC #### [facility] [address] [place] [address] Dr. Nayely FerrerPOINT OF CARE GLUCOSEon 16-32-7435Orhqdyk [Mass/Vol]233 mg/dL Critically sfsu98-564Gcg [facility] LimaComment on above:Performed By: #### POCGLUC #### [facility] [address] [address] [address] Nayely FerrerGlucose [Mass/Vol]260 mg/dLCritically hqnl10-915Cic [facility] LimaComment on above:Performed By: #### POCGLUC #### [facility] [address] [address] [address] Nayely FerrerGlucose [Mass/Vol]223 mg/dLCritically dpqx28-639Cbn [facility] LimaComment on above:Performed By: #### POCGLUC #### [facility] [address] [address] [address] Nayely FerrerGlucose [Mass/Vol]266 mg/dLCritically kroc81-453Uvm [facility] LimaComment on above:Performed By: #### POCGLUC #### [facility] [address] [place] [address] Dr. Nayely FerrerPROF CHEM 8 (BAS METB)on 65-84-5402Jqksy gap [Moles/Vol]14.4 mmol/LNormalThe [facility] LimaComment on above:Performed By: #### POCGLUC #### [facility] [address] [address] [address] Nayely FerrerCalcium [Mass/Vol]8.1 mg/dLCritically low8.5-10.1The [facility] LimaComment on above:Performed By: #### POCGLUC #### [facility] [address] [place] [address] Dr. Nayely FerrerChloride [Moles/Vol]100 mmol/ENkerjo59-118Gny [facility] Comment on above:Performed By: #### POCGLUC #### [facility] [address] [address] [address] Nayely FerrerCO2 [Moles/Vol]21.9 mmol/IEygixz79.0-32.0The [facility] Comment on above:Performed By: #### POCGLUC #### [facility] [address] [address] [address] Nayely FerrerCreatinine [Mass/Vol]1.43 mg/dLCritically high0.70-1.30The [facility] on above:Performed By: #### POCGLUC #### [facility] [address] [place] [address] Dr. Nayely DarnellGFR-AF INDONESIAN>60Normal>=60The [facility] LimaComment on above:Performed By: #### POCGLUC #### [facility] [address] [place] [address] Dr. Nayely DarnellGFR-NON AF QHMWYMEN33 mL/min/1.21p6Umsegbrymd low>=60The [facility] LimaComment on above:Performed By: #### POCGLUC #### [facility] [address] [place] [address] Dr. Nayely FerrerGlucose [Mass/Vol]264 mg/dLCritically fvfy76-895Ihp [facility]:Performed By: #### POCGLUC #### [facility] [address] [place] [address] Dr. Nayely FerrerPotassium [Moles/Vol]3.3 mmol/LCritically low3.5-5.1The [facility] on above:Performed By: #### POCGLUC #### [facility] [address] [place] [address] Dr. Nayely FerrerSodium [Moles/Vol]133 mmol/LCritically qif154-569Zfq [facility]:Performed By: #### POCGLUC #### [facility] [address] [place] [address] Dr. Nayely FerrerUrea nitrogen [Mass/Vol]18.0 mg/dLNormal7.0-18.0The [facility] LimaComment on above:Performed By: #### POCGLUC #### [facility] [address] [place] [address] Dr. Nayely Mccain nitrogen/Creatinine [Mass ratio]12.6 mg/mgNormalThe [facility] above:Performed By: #### POCGLUC #### [facility] [address] [place] [address] Dr. Nayely FerrerCBC AUTO DIFFon 32-11-3144WZVG #0.0 103/ulNormal0.0-0.1[facility] HospitalComment on above:Performed By: #### POCGLUC #### [facility] [address] [place] [address] Dr. Nayely FerrerBasophils/100 WBC (Bld)0.3 %Normal0.2-2.0[facility] Comment on above:Performed By: #### POCGLUC #### [facility] [address] [place] [address] Dr. Nayely Thurman #0.1 103/ulNormal0.0-0.7The [facility] LimaComment on above: Performed By: #### POCGLUC #### [facility] [address] [place] [address] Dr. Nayely Darnellosinophils/100 WBC (Bld)0.9 %Normal0.9-7.0[facility] Comment on above:Performed By: #### POCGLUC #### [facility] [address] [place] [address] Dr. Nayely Darnellrythrocyte distribution width (RBC) [Ratio]13.2 %Aiduvq20.0-15.0 [facility] HospitalComment on above:Performed By: #### POCGLUC #### [facility] [address] [place] [address] Dr. Nayely FerrerHematocrit (Bld) [Volume fraction]37.1 %Critically low42.0-54.0 [facility]Comment on above:Performed By: #### POCGLUC #### [facility] [address] [place] [address] Dr. Nayely FerrerHemoglobin (Bld) [Mass/Vol]12.5 g/dLCritically low14.0-18.0[facility] HospitalComment on above:Performed By: #### POCGLUC #### [facility] [address] [place] [address] Dr. Nayely Glover #0.16 10e3/ulCritically high0.00-0.03[facility] Comment on above:Performed By: #### POCGLUC #### [facility] [address] [address] [address] Nayely Glover %1.1 %Critically high0.0-0.5The [facility] LimaComment on above:Performed By: #### POCGLUC #### [facility] [address] [address] [address] Nayely Munroe #0.8 103/ulCritically low1.2-3.8The [facility] Comment on above:Performed By: #### POCGLUC #### [facility] [address] [address] [address] Nayely Lzaarhocytes/100 WBC (Bld)5.5 %Critically low20.5-60.0The [facility] LimaComment on above:Performed By: #### POCGLUC #### [facility] [address] [place] [address] Dr. Nayely LuongUAL DIFF REQNONormalThe [facility] LimaComment on above: Performed By: #### POCGLUC #### [facility] [address] [place] [address] Dr. Nayely Naranjo (RBC) [Entitic mass]29.5 ljMscjwe80.9-34.0The [facility] LimaComment on above:Performed By: #### POCGLUC #### [facility] [address] [place] [address] Dr. Nayely Naranjo (RBC) [Mass/Vol]33.7 g/xHCvyumf39.9-35.2The [facility] LimaComment on above:Performed By: #### POCGLUC #### [facility] [address] [place] [address] Dr. Nayely Naranjo (RBC) [Entitic vol]87.5 uJLwasaf98.0-94.0The [facility] LimaComment on above:Performed By: #### POCGLUC #### [facility] [address] [place] [address] Dr. Nayely Foster #0.8 103/ulNormal0.3-0.8The [facility] LimaComment on above:Performed By: #### POCGLUC #### [facility] [address] [address] [address] Nayely Noriegaocytes/100 WBC (Bld)5.3 %Normal1.7-12.0[facility] Comment on above:Performed By: #### POCGLUC #### [facility] [address] [address] [address] Nayely PolancoUT #12.7 103/ulCritically high1.4-6.5The [facility] Comment on above:Performed By: #### POCGLUC #### [facility] [address] [address] [address] Nayely Polancoutrophils/100 WBC (Bld)86.9 %Critically high43.0-75.0[facility] HospitalComment on above:Performed By: #### POCGLUC #### [facility] [address] [address] [address] Nayely FerrerPlatelet mean volume (Bld) [Entitic vol]9.6 fLNormal9.5-13.5The [facility]red Hospital LimaComment on above:Performed By: #### POCGLUC #### [facility] [address] [place] [address] Dr. Nayely FerrerPLT133 103/ulCritically ynd753-376Mwc [facility] LimaComment on above:Performed By: #### POCGLUC #### [facility] [address] [place] [address] Dr. Nayely FerrerRBC4.24 106/ulCritically low4.70-6.10The [facility] LimaComment on above:Performed By: #### POCGLUC #### [facility] [address] [place] [address] Dr. Nayely FerrerWBC14.7 103/ulCritically high4.0-11.0The [facility] LimaComment on above:Performed By: #### POCGLUC #### [facility] [address] [place] [address] Dr. Nayely FerrerDRUG SCREEN RAPID (URINE)on 13-10-9666UBTOrbzonsgYvjrelHFGGYNDC The Kirk HospitalComment on above:Performed By: #### POCGLUC #### [facility] [address] [place] [address] Dr. Nayely FerrerBARNegativeNormalNEGATIVEBerger HospitalComment on above: Performed By: #### POCGLUC #### [facility] [address] [place] [address] Dr. Nayely FerrerBUPNegativeNormalNEGATIVEUniversity Hospitals Lake West Medical Centerment on above: Performed By: #### POCGLUC #### [facility] [address] [place] [address] Dr. Nayely FerrerBZONegativeNormalNEGATIVEBerger HospitalComment on above: Performed By: #### POCGLUC #### [facility] [address] [place] [address] Dr. Nayely FerrerCOCNegativeNormalNEGATIVEBerger HospitalComment on above: Performed By: #### POCGLUC #### [facility] [address] [place] [address] Dr. Nayely ArnoldMercy HealthComment on above: Result Comment: AMP (Amphetamine): 500ng/mL, BAR (Barbituates): 200 ng/mL, BZO (Benzodiazepines): 150 ng/mL, BUP (Buprenorphine): 10 ng/mL, JOSE MANUEL (Cocaine): 150 ng/mL, mAMP (Methamphetamine): 500 ng/mL, MTD (Methadone): 200 ng/mL, OPI (Opiates): 100 ng/mL, OXY (Oxycodone): 100 ng/mL, PCP (Phencyclidine): 25 ng/mL, PPX (Propoxyphene): 300 ng/mL, THC (Cannabinoids): 50 ng/mL, TCA (Trycyclic Antidepressants): 300 ng/mLPerformed By: #### POCGLUC #### [facility] [address] [place] [address] Dr. Nayely FerrerDRUG CUT HEADERDRUG CLASS TEST SYSTEM CUT-OFF CONCENTRATIONS ARE FOLLOWS:NormalThe [facility] Hospital LimaComment on above:Performed By: #### POCGLUC #### [facility] [address] [address] [address] Nayely FerrermAMPNegativeNormalNEGATIVEBerger HospitalComment on above: Performed By: #### POCGLUC #### [facility] [address] [address] [address] Nayely FerrerMTDNegativeNormalNEGATIVEBerger HospitalComment on above: Performed By: #### POCGLUC #### [facility] [address] [address] [address] Nayely FerrerOPINegativeNormalNEGATIVEBerger HospitalComment on above: Performed By: #### POCGLUC #### [facility] [address] [address] [address] Nayely FerrerOXYNegativeNormalNEGHarrison Community HospitalComment on above: Performed By: #### POCGLUC #### [facility] [address] [address] [address] Nayely FerrerPCPNegativeNormalNEGATIVEBerger HospitalComment on above: Performed By: #### POCGLUC #### [facility] [address] [address] [address] Nayely FerrerPPXNegativeNormalNEGHarrison Community HospitalCombeaumont hospital on above: Performed By: #### POCGLUC #### [facility] [address] [address] [address] Nayely FerrerTCANegativeNormalNEGATIVEBerger HospitalComment on above: Performed By: #### POCGLUC #### [facility] [address] [address] [address] Nayely FerrerTHCNegativeNormalNEGATIVEBerger HospitalComment on above: Performed By: #### POCGLUC #### [facility] [address] [address] [address] Nayely FerrerGENTAMICIN RANDOMon 65-23-7907IIJURDSJJH3.6 ug/mLNormalBerger HospitalComment on above:Performed By: #### POCGLUC #### [facility] [address] [address] [address] Nayely Alvarez OF CARE GLUCOSEon 00-05-2907Jnizrfr [Mass/Vol]307 mg/dL Critically fuye34-583Ndj [facility] LimaComment on above:Performed By: #### POCGLUC #### [facility] [address] [address] [address] Nayely FerrerGlucose [Mass/Vol]290 mg/dLCritically pnok57-727Lgq [facility] LimaComment on above:Performed By: #### POCGLUC #### [facility] [address] [address] [address] Nayely FerrerGlucose [Mass/Vol]287 mg/dLCritically qyhb81-859Mtu [facility] LimaComment on above:Performed By: #### POCGLUC #### [facility] [address] [address] [address] Nayely FerrerPROF CHEM 8 (BAS METB)on 30-40-2792Zcjua gap [Moles/Vol]15.4 mmol/LNormalThe [facility] Hospital LimaComment on above:Performed By: #### POCGLUC #### [facility] [address] [address] [address] Nayely FerrerCalcium [Mass/Vol]8.2 mg/dLCritically low8.5-10.1The [facility] LimaComment on above:Performed By: #### POCGLUC #### [facility] [address] [address] [address] Nayely FerrerChloride [Moles/Vol]97 mmol/LCritically rph59-017Klk [facility] LimaComment on above:Performed By: #### POCGLUC #### [facility] [address] [address] [address] Nayely FerrerCO2 [Moles/Vol]23.2 mmol/OEmvbvz91.0-32.0The [facility] Comment on above:Performed By: #### POCGLUC #### [facility] [address] [address] [address] Nayely FerrerCreatinine [Mass/Vol]1.36 mg/dLCritically high0.70-1.30The [facility] LimaComment on above:Performed By: #### POCGLUC #### [facility] [address] [address] [address] Nayely DarnellGFR-AF INDONESIAN>60Normal>=60The [facility] LimaComment on above:Performed By: #### POCGLUC #### [facility] [id number] Nayely DarnellGFR-NON AF BDLMRYHR07 mL/min/1.50x4Jknnfrjdvo low>=60The [facility] LimaComment on above:Performed By: #### POCGLUC #### [facility] [address] [address] [address] Nayely FerrerGlucose [Mass/Vol]283 mg/dLCritically opaa39-011Xoe [facility] LimaComment on above:Performed By: #### POCGLUC #### [facility] [address] [address] [address] Nayely FerrerPotassium [Moles/Vol]3.6 mmol/LNormal3.5-5.1The [facility] Comment on above:Performed By: #### POCGLUC #### [facility] [address] [address] [address] Nayely FerrerSodium [Moles/Vol]132 mmol/LCritically tsy355-241Mwo [facility] on above:Performed By: #### POCGLUC #### [facility] [address] [address] [address] Nayely FerrerUrea nitrogen [Mass/Vol]15.0 mg/dLNormal7.0-18.0The OhioHealthment on above:Performed By: #### POCGLUC #### [facility] [address] [address] [address] Nayely FerrerUrea nitrogen/Creatinine [Mass ratio]11.0 mg/mgNormalThe [facility] Hospital LimaComment on above:Performed By: #### POCGLUC #### [facility] [address] [address] [address] Nayely Johnson CULTURE ID PANELon 06-16-2022. baumanniiNot detectedNormal NOT DETECTEDThe [facility] on above:Performed By: #### POCGLUC #### [facility] [address] [address] [address] Nayely marianoNot detectedNormalNOT DETECTEDThe [facility] LimaCombeaumont hospital on above:Performed By: #### POCGLUC #### [facility] [address] [address] [address] Nayely Sanford CONTROLSPASSEDUniversity Hospitals Portage Medical CenterCombeaumont hospital on above: Performed By: #### POCGLUC #### [facility] [address] [address] [address] Nayely SanfordBTHDBLOOD CULTURE BOTTLE [facility] SystemCom[facility]aum[facility] on above:Performed By: #### POCGLUC #### [facility] [address] [place] [address] Dr. Nayely SanfordUpphlPTSDXO3FJNODRGYXOAIM RESISTANCE GENESUniversity Hospitals Port[facility] Medical Center Comment on above:Performed By: #### POCGLUC #### [facility] [address] [place] [address] Dr. Nayely SanfordHD2SEE BELOWUniversity Hospitals Portage Medical CenterComment on above: Result Comment: Note: Antimicrobial resitance can occur via multiple mechanisms. A Not Detected result for the [employer] antomicrobial resistance gene assays does not indicate antimicrobial susceptibility. Subculturing is required for species identification and susceptibility testing of isolates.Performed By: #### POCGLUC #### [facility] [address] [place] [address] Dr. Nayely SanfordXwkqsPBEUUK3FlbzmdgiMkyireLuxAvita Health System Ontario HospitalCombeaumont hospital on above: Performed By: #### POCGLUC #### [facility] [address] [address] [address] Nayely SanfordEpvsyLZCYYA0JjgndsxyQkwevmPsp Bellevue HospitalComment on above: Performed By: #### POCGLUC #### [facility] [address] [address] [address] Nayely SanfordUmyezRVOELS5DXCKWBdpqfrGbmUniversity Hospitals Portage Medical CenterCombeaumont hospital on above:Performed By: #### POCGLUC #### [facility] [address] [address] [address] Nayely Leon Set:Set 1NormalThe [facility] Hospital LimaComment on above: Performed By: #### POCGLUC #### [facility] [address] [address] [address] Nayely Leon:AerobicNormalThe [facility] LimaComment on above: Performed By: #### POCGLUC #### [facility] [address] [address] [address] Nayely Gonzalez. neoformans/gattiiNot detectedNormalNOT DETECTEDThe [facility] LimaComment on above:Performed By: #### POCGLUC #### [facility] [address] [address] [address] Nayely Tineo albicansNot detectedNormalNOT DETECTEDThe [facility] LimaComment on above:Performed By: #### POCGLUC #### [facility] [address] [address] [address] Nayely Tineo aurisNot detectedNormalNOT DETECTEDThe [facility] Comment on above:Performed By: #### POCGLUC #### [facility] [address] [address] [address] Nayely Tineo glabrataNot detectedNormalNOT DETECTEDThe [facility]imaCombeaumont hospital on above:Performed By: #### POCGLUC #### [facility] [address] [address] [address] Nayely Tineo KruseiNot detectedNormalNOT DETECTEDThe [facility] Comment on above:Performed By: #### POCGLUC #### [facility] [address] [address] [address] Nayely Tineo ParapsilosisNot detectedNormalNOT DETECTEDThe [facility] LimaComment on above:Performed By: #### POCGLUC #### [facility] [address] [address] [address] Nayely Tineo TropicalisNot detectedNormalNOT DETECTEDThe [facility] LimaComment on above:Performed By: #### POCGLUC #### [facility] [address] [address] [address] Nayely HinsonX-M Resistant GeneDetectedAbnormalNOT DETECTEDThe [facility]imaCombeaumont hospital on above:Performed By: #### POCGLUC #### [facility] [address] [address] [address] Nayely Darnell. Cloacae complexNot detectedNormalNOT DETECTEDThe [facility]imaCombeaumont hospital on above:Performed By: #### POCGLUC #### [facility] [address] [address] [address] Nayely Darnell. faecalisNot detectedNormalNOT DETECTEDThe [facility] Comment on above:Performed By: #### POCGLUC #### [facility] [address] [address] [address] Nayely Darnell. faeciumNot detectedNormalNOT DETECTEDThe [facility] Comment on above:Performed By: #### POCGLUC #### [facility] [address] [address] [address] Nayely DarnellnterobacteriaceaeDetectedCritically abnormalNOT DETECTEDThe [facility] LimaComment on above:Performed By: #### POCGLUC #### [facility] [address] [address] [address] Nayely Howellichia coliDetectedCritically abnormalNOT DETECTEDThe [facility]imaCombeaumont hospital on above:Performed By: #### POCGLUC #### [facility] [address] [address] [address] Nayely White. influenzaeNot detectedNormalNOT DETECTEDThe [facility] Comment on above:Performed By: #### POCGLUC #### [facility] [address] [address] [address] Nyaely Espinoza Resistant GeneNot detectedNormalNOT DETECTEDThe [facility]imaCombeaumont hospital on above:Performed By: #### POCGLUC #### [facility] [address] [address] [address] Nayely Bush. oxytocaNot detectedNormalNOT DETECTEDThe [facility] Comment on above:Performed By: #### POCGLUC #### [facility] [address] [address] [address] Nayely Bush. pneumoniaeNot detectedNormalNOT DETECTEDThe [facility] Comment on above:Performed By: #### POCGLUC #### [facility] [address] [address] [address] Nayely Gerber aerogenesNot detectedNormalNOT DETECTEDThe [facility] LimaComment on above:Performed By: #### POCGLUC #### [facility] [address] [address] [address] Nayely Cisneros Resistant GeneNot detectedNormalNOT DETECTEDThe [facility] LimaComment on above:Performed By: #### POCGLUC #### [facility] [address] [address] [address] Nayely Retana. monocytogenesNot detectedNormalNOT DETECTEDThe [facility] LimaComment on above:Performed By: #### POCGLUC #### [facility] [address] [place] [address] Dr. Nayely Naranjor-1 Resistant GeneNot detectedNormalNOT DETECTEDThe [facility] LimaComment on above:Performed By: #### POCGLUC #### [facility] [address] [place] [address] Dr. Nayely Aceves/CNot ApplicableNormalNOT DETECTEDBerger Hospital Comment on above:Performed By: #### POCGLUC #### [facility] [address] [place] [address] Dr. Nayely Aceves/C MREJNot ApplicableNormalNOT DETECTEDBerger Hospital Comment on above:Performed By: #### POCGLUC #### [facility] [address] [place] [address] Dr. Nayely Shea. meningitidisNot detectedNormalNOT DETECTEDThe [facility]imaCombeaumont hospital on above:Performed By: #### POCGLUC #### [facility] [address] [address] [address] Nayely Myers Resistant GeneNot detectedNormalNOT DETECTEDThe [facility] LimaComment on above:Performed By: #### POCGLUC #### [facility] [address] [address] [address] Nayely BethPqbnhHsp-24-vkgkGbo detectedNormalNOT DETECTEDThe [facility] Comment on above:Performed By: #### POCGLUC #### [facility] [address] [address] [address] Nayely FerrerProteusNot detectedNormalNOT DETECTEDThe [facility] LimaComment on above:Performed By: #### POCGLUC #### [facility] [address] [address] [address] Nayely Hancock. aeruginosaNot detectedNormalNOT DETECTEDThe [facility] LimaComment on above:Performed By: #### POCGLUC #### [facility] [address] [address] [address] Nayely Segura. maltophiliaNot detectedNormalNOT DETECTEDThe [facility] Comment on above:Performed By: #### POCGLUC #### [facility] [address] [address] [address] Nayely FerrerSalmonellaNot detectedNormalNOT DETECTEDThe [facility] Comment on above:Performed By: #### POCGLUC #### [facility] [address] [address] [address] Nayely Antunez marcescensNot detectedNormalNOT DETECTEDThe [facility]imaCombeaum[facility] hospital on above:Performed By: #### POCGLUC #### [facility] [address] [address] [address] Nayely Solis:Lt WristNormalThe [facility] LimaComment on above: Performed By: #### POCGLUC #### [facility] [address] [address] [address] Nayely Kebede. aureusNot detectedNormalNOT DETECTEDThe [facility] Comment on above:Performed By: #### POCGLUC #### [facility] [address] [address] [address] Nayely Kebede. epidermidisNot detectedNormalNOT DETECTEDThe [facility] LimaComment on above:Performed By: #### POCGLUC #### [facility] [address] [address] [address] Yilan ChangStaph. lugdunensisNot detectedNormalNOT DETECTEDThe [facility] LimaComment on above:Performed By: #### POCGLUC #### [facility] [address] [place] [address] Dr. aNyely SalazaraphylococcusNot detectedNormalNOT DETECTEDThe [facility] Comment on above:Performed By: #### POCGLUC #### [facility] [address] [address] [address] Nayely Walls. agalactiaeNot detectedNormalNOT DETECTEDThe [facility] LimaComment on above:Performed By: #### POCGLUC #### [facility] [address] [place] [address] Dr. Nayely Walls. pneumoniaeNot detectedNormalNOT DETECTEDThe [facility]imaCombeaum[facility] hospital on above:Performed By: #### POCGLUC #### [facility] [address] [place] [address] Dr. Nayely Walls. pyogenesNot detectedNormalNOT DETECTEDThe [facility] LimaComment on above:Performed By: #### POCGLUC #### [facility] [address] [place] [address] Dr. Nayely WallstococcusNot detectedNormalNOT DETECTEDThe [facility] Comment on above:Performed By: #### POCGLUC #### [facility] [address] [place] [address] Dr. Nayely Yañez/Julito Resist. GeneNot ApplicableNormalNOT DETECTEDThe [facility]imaCombea[facility] hospital on above:Performed By: #### POCGLUC #### [facility] [address] [place] [address] Dr. Nayely Pierre Resistant GeneNot detectedNormalNOT DETECTEDThe [facility]imaCombeaum[facility] hospital on above:Performed By: #### POCGLUC #### [facility] [address] [place] [address] Dr. Nayely Galeas AUTO DIFFon [id number] #0.1 103/ulNormal0.0-0.1The [facility] LimaComment on above:Performed By: #### POCGLUC #### [facility] [address] [address] [address] Nayely FerrerBasophils/100 WBC (Bld)0.3 %Normal0.2-2.0The [facility] Comment on above:Performed By: #### POCGLUC #### [facility] [address] [address] [address] Nayely Thurman #0.0 103/ulNormal0.0-0.7The [facility] LimaComment on above: Performed By: #### POCGLUC #### [facility] [address] [place] [address] Dr. Nayely Darnellosinophils/100 WBC (Bld)0.0 %Critically low0.9-7.0The [facility] LimaComment on above:Performed By: #### POCGLUC #### [facility] [address] [place] [address] Dr. Nayely Darnellrythrocyte distribution width (RBC) [Ratio]13.2 %Wgyszs54.0-15.0 The [facility] LimaComment on above:Performed By: #### POCGLUC #### [facility] [address] [place] [address] Dr. Nayely FerrerHematocrit (Bld) [Volume fraction]40.3 %Critically low42.0-54.0 [facility] HospitalComment on above:Performed By: #### POCGLUC #### [facility] [address] [place] [address] Dr. Nayely FerrerHemoglobin (Bld) [Mass/Vol]14.0 g/eIBespia01.0-18.0The [facility] LimaComment on above:Performed By: #### POCGLUC #### [facility] [address] [place] [address] Dr. Nayely Glover #0.18 10e3/ulCritically high0.00-0.03The [facility] Comment on above:Performed By: #### POCGLUC #### [facility] [address] [place] [address] Dr. Nayely Glover %1.0 %Critically high0.0-0.5The [facility] HospitalComment on above:Performed By: #### POCGLUC #### [facility] [address] [address] [address] Nayely Munroe #0.8 103/ulCritically low1.2-3.8The [facility] Comment on above:Performed By: #### POCGLUC #### [facility] [address] [place] [address] Dr. Nayely Lazarhocytes/100 WBC (Bld)4.3 %Critically low20.5-60.0The [facility] LimaComment on above:Performed By: #### POCGLUC #### [facility] [address] [place] [address] Dr. Nayely Brandt DIFF REQNONormalThe [facility] LimaComment on above: Performed By: #### POCGLUC #### [facility] [address] [place] [address] Dr. Nayely Merino (RBC) [Entitic mass]29.7 lrJkkpso35.9-34.0The [facility] LimaComment on above:Performed By: #### POCGLUC #### [facility] [address] [place] [address] Dr. Nayely Naranjo (RBC) [Mass/Vol]34.7 g/uNNbfszm93.9-35.2The [facility] LimaComment on above:Performed By: #### POCGLUC #### [facility] [address] [place] [address] Dr. Nayely Morrison (RBC) [Entitic vol]85.6 uOYobanh91.0-94.0The [facility] LimaComment on above:Performed By: #### POCGLUC #### [facility] [address] [place] [address] Dr. Nayely Foster #0.8 103/ulNormal0.3-0.8The [facility] LimaComment on above:Performed By: #### POCGLUC #### [facility] [address] [place] [address] Dr. Nayely Noriegaocytes/100 WBC (Bld)4.7 %Normal1.7-12.0[facility] Comment on above:Performed By: #### POCGLUC #### [facility] [address] [place] [address] Dr. Nayely Sims #15.7 103/ulCritically high1.4-6.5The [facility] Comment on above:Performed By: #### POCGLUC #### [facility] [address] [place] [address] Dr. Nayely Polancoutrophils/100 WBC (Bld)89.7 %Critically high43.0-75.0The [facility] LimaComment on above:Performed By: #### POCGLUC #### [facility] [address] [place] [address] Dr. Nayely Chopra mean volume (Bld) [Entitic vol]9.6 fLNormal9.5-13.5The [facility] LimaComment on above:Performed By: #### POCGLUC #### [facility] [address] [place] [address] Dr. Nayely FerrerPLT153 103/ibInczxd329-061Hqx [facility] LimaComment on above: Performed By: #### POCGLUC #### [facility] [address] [place] [address] Dr. Nayely FerrerRBC4.71 106/ulNormal4.70-6.10The [facility] LimaComment on above:Performed By: #### POCGLUC #### [facility] [address] [place] [address] Dr. Nayely FerrerWBC17.5 103/ulCritically high4.0-11.0[facility] HospitalComment on above:Performed By: #### POCGLUC #### [facility] [address] [place] [address] Dr. Nayely FerrerCT ABD/PELVIS WO CONon [id number] ABD/PELVIS WO CONCLINICAL HISTORY: Fever. Blood in urine, fever, chills, weakness. EXAMINATION: [...] Electronically authenticated by: ASIA BAXTER Date: 2022-06-16 20:11[facility] CenterCULTURE BLOODon [id number] examination of blood, cultureCulture Observations: Aerobic bottle positive; BCID: E. Coli called to Emelyn Blue RN Culture Observations: Refer to accession #[id number] for susceptibilities Culture Observations: NO GROWTH IN ANAEROBIC BOTTLE AT 5 DAYS. Isolate 1 BC_BA_NA Growth ofUniversity Hospitals Portage Medical CenterComment on above:Performed By: #### [id number] #### [facility] [address] [place] [address] Dr. Nayely Mcgarry-19 PCR ([facility])on [id number]-CoV-2 (COVID-19) RNA JOSIE+probe Ql (Unsp spec)Not detectedNormalNOT DETECTEDBer[facility] Hospital Comment on above:Result Comment: When diagnostic testing is negative, the [...] for this test is supported by the Pain Management Specialist of Health and Human Service's declaration that circumstances exist to justify the emergency use of in vitro diagnostics for the detection and/or diagnosis of the virus that causes COVID-19. This EUA will remain in effect for the duration of the COVID-19 declaration justifying emergency of IVDs, unless it is terminated or revoked by the FDA (after which the test may no longer be used).Performed By: #### POCGLUC #### [facility] [address] [place] [address] Dr. Nayely Prater URINE PROFILEon 55-19-3116Qauadxago Ql (U)NegativeNormal NEGATIVEUniversity Hospitals Lake West Medical Centerment on above:Performed By: #### POCGLUC #### [facility] [address] [place] [address] Dr. Nayely Delaney (U)SL CLOUDYAbnormalCLEARThe [facility] LimaComment on above:Performed By: #### POCGLUC #### [facility] [address] [place] [address] Dr. Nayely Whiteny (U)YELLOWNormalYELLOWBerger HospitalComment on above: Performed By: #### POCGLUC #### [facility] [address] [place] [address] Dr. Nayely Garza micrscopic examination will be performed if indicated. NormalThe Kirk HospitalComment on above:Performed By: #### POCGLUC #### [facility] [address] [address] [address] Nayely FerrerGlucose Ql (U)>1000AbnormalNEGATIVEBerger HospitalComment on above:Performed By: #### POCGLUC #### [facility] [address] [address] [address] Nayely FerrerHemoglobin Ql (U)LARGEAbnormalNEGHarrison Community Hospital Comment on above:Performed By: #### POCGLUC #### [facility] [address] [address] [address] Nayely FerrerKetones Ql (U)40 mg/dlAbnormalNEGATIVEBerger Hospital Comment on above:Performed By: #### POCGLUC #### [facility] [address] [place] [address] Dr. Nayely FerrerLEUKOCYTESTRACEAbnormalNEGATIVEBerger HospitalComment on above:Performed By: #### POCGLUC #### [facility] [address] [address] [address] Nayely FerrerNitrite Ql (U)PositiveAbnormvaNEGHarrison Community Hospital Comment on above:Performed By: #### POCGLUC #### [facility] [address] [place] [address] Dr. Nayely FerrerpH (U)5.5 [pH]Normal5-9Berger HospitalComment on above: Performed By: #### POCGLUC #### [facility] [address] [place] [address] Dr. Nayely FerrerProtein (U) [Mass/Vol]100 mg/dLAbnormalNEGATIVE/ TRACEThe [facility] LimaComment on above:Performed By: #### POCGLUC #### [facility] [address] [place] [address] Dr. Nayely FerrerSPEC GRAVITY1.480Dckzsv1.005-<=1.025Berger HospitalComment on above:Performed By: #### POCGLUC #### [facility] [address] [place] [address] Dr. Nayely Jimenez MICRO INDINDICATEDNormalThe [facility] LimaComment on above: Performed By: #### POCGLUC #### [facility] [address] [place] [address] Dr. Nayely Pickardinogen Qn (U)0.2 {Ced'U}/dLNormal0.2 - 1.0The [facility] LimaComment on above:Performed By: #### POCGLUC #### [facility] [address] [place] [address] Dr. Nayely FerrerLACTATE/LACTIC ACIDon 78-60-6137Ougixcx [Moles/Vol]1.7 mmol/L Normal0.4-1.9The [facility] LimaComment on above:Performed By: #### POCGLUC #### [facility] [address] [place] [address] Dr. Nayely FerrerPROF 14(COMP METB)on 66-39-2193Ycmcudx [Mass/Vol]2.7 g/dL Critically low3.4-5.0The [facility] LimaComment on above:Performed By: #### POCGLUC #### [facility] [address] [place] [address] Dr. Nayely FerrerAlbumin/Globulin [Mass ratio]0.6 {ratio}NormalThe [facility] LimaComment on above:Performed By: #### POCGLUC #### [facility] [address] [address] [address] Nayely Smith [Catalytic activity/Vol]82 U/VHrktjl68-807Oay [facility] LimaComment on above:Performed By: #### POCGLUC #### [facility] [address] [address] [address] Nayely Mcpherson [Catalytic activity/Vol]21 U/PNwptmf19-61Qnj [facility] LimaComment on above:Performed By: #### POCGLUC #### [facility] [address] [place] [address] Dr. Nayely Marina gap [Moles/Vol]16.8 mmol/LNormalThe [facility] Comment on above:Performed By: #### POCGLUC #### [facility] [address] [address] [address] Nayely FerrerAST [Catalytic activity/Vol]18 U/IYxiqjq66-41Wsi [facility] LimaComment on above:Performed By: #### POCGLUC #### [facility] [address] [address] [address] Nayely FerrerBilirubin [Mass/Vol]0.9 mg/dLNormal0.2-1.0[facility] Comment on above:Performed By: #### POCGLUC #### [facility] [address] [address] [address] Nayely FerrerCalcium [Mass/Vol]8.8 mg/dLNormal8.5-10.1The [facility] Comment on above:Performed By: #### POCGLUC #### [facility] [address] [address] [address] Nayely FerrerChloride [Moles/Vol]94 mmol/LCritically ouo06-585Zsd [facility] LimaComment on above:Performed By: #### POCGLUC #### [facility] [address] [address] [address] Nayely FerrerCO2 [Moles/Vol]22.6 mmol/MJvnpqe39.0-32.0[facility] Comment on above:Performed By: #### POCGLUC #### [facility] [address] [address] [address] Nayely FerrerCreatinine [Mass/Vol]1.49 mg/dLCritically high0.70-1.30The [facility] LimaComment on above:Performed By: #### POCGLUC #### [facility] [address] [address] [address] Adler ChangEGFR-AF INDONESIAN>60Normal>=60The [facility] LimaComment on above:Performed By: #### POCGLUC #### [facility] [address] [address] [address] Nayely DarnellGFR-NON AF FBZUXRGZ30 mL/min/1.96g3Xrsnbuzlkc low>=60The [facility] LimaComment on above:Performed By: #### POCGLUC #### [facility] [address] [address] [address] Nayely FerrerGlobulin (S) [Mass/Vol]4.4 g/dLNormACMC Healthcare System GlenbeighComment on above:Performed By: #### POCGLUC #### [facility] [address] [address] [address] Nayely FerrerGlucose [Mass/Vol]346 mg/dLCritically sehi85-720Uxw [facility] LimaComment on above:Performed By: #### POCGLUC #### [facility] [address] [address] [address] Nayely FerrerPotassium [Moles/Vol]3.4 mmol/LCritically low3.5-5.1The OhioHealthment on above:Performed By: #### POCGLUC #### [facility] [address] [address] [address] Nayely FerrerProtein [Mass/Vol]7.1 g/dLNormal6.4-8.2The [facility] Comment on above:Performed By: #### POCGLUC #### [facility] [address] [address] [address] Nayely FerrerSodium [Moles/Vol]130 mmol/LCritically wzp665-318Rjc [facility] LimaComment on above:Performed By: #### POCGLUC #### [facility] [address] [address] [address] Nayely FerrerUrea nitrogen [Mass/Vol]16.0 mg/dLNormal7.0-18.0The [facility] LimaComment on above:Performed By: #### POCGLUC #### [facility] [address] [address] [address] Nayely Mccain nitrogen/Creatinine [Mass ratio]10.7 mg/mgNoTriHealth Good Samaritan HospitalComment on above:Performed By: #### POCGLUC #### [facility] [address] [address] [address] Nayely FerrerURINE MICROSCOPIC ONLYon 25-72-9337TUBBHRSMIWQULDxyaexepEGHX SEEN The [facility] on above:Performed By: #### POCGLUC #### [facility] [address] [address] [address] Nayely Guzman identified Cx Nom (U)INDICATEDHermann Area District HospitalalThCommunity Regional Medical Center on above:Performed By: #### POCGLUC #### [facility] [address] [address] [address] Nayely NessNONShirin SEENNormalNONE SEENOhioHealth Shelby Hospital on above:Performed By: #### POCGLUC #### [facility] [address] [address] [address] Nayely Orozco LM Nom (Urine sed)NONE SEENNormalNONE SEENOhioHealth Shelby Hospital on above:Performed By: #### POCGLUC #### [facility] [address] [address] [address] Adler ChangEpithelial cells LM Ql (Urine sed)FEWAbnormalNONE SEEN /RAREThe [facility] on above:Performed By: #### POCGLUC #### [facility] [address] [address] [address] Nayely RobertsCOLAILA SEENNormvaNONE SEENOhioHealth Shelby Hospital on above:Performed By: #### POCGLUC #### [facility] [address] [address] [address] Nayely Nesbitt (U) [#/Vol]/uLAbnormal0-2The [facility] on above:Performed By: #### POCGLUC #### [facility] [address] [address] [address] Nayely FerrerUkdbqYJV06-586RfthcsfpKFRI SEENOhioHealth Shelby Hospital on above: Performed By: #### POCGLUC #### [facility] [address] [address] [address] Nayely FerrerAmbulatory Visit Summaryon 95-17-1689Bwkudlgrux Visit Summary CASE, SHILO Carpio :1975 Visit Date:05/17/2022 Ambulatory Visit Instructions Your Diagnosis Bile reflux esophagitis Chronic GERD BMI 38.0-38.9,adult Your Care Team Attending Physician - WILMAN MCKEE, Khadar Reed Primary Care Physician - Fer Ho MD This Is Your Medications List Contact [...] Four times a day (before meals and atbedtime) prescribed Contact prescribing physician if questions or concerns Allergies acetaminophen-hydrocodone (Nausea) penicillin (Unknown) Problems Ongoing - Any problem that you are currently receiving treatment for. Abdominal pain, left lower quadrant Bile reflux esophagitis BMI 38.0-38.9,adult Change in bowel habits Chronic GERD Constipation Diabetes Diverticulitis Dysphagia Gastroesophageal reflux disease Glaucoma Gynecomastia HTN (hypertension) Hypertriglyceridemia Hyperuricemia IBS (irritable bowel syndrome) Insulinoma Vgte-Ftmhh-Pmthckf disease Lumbar disc disease Migraines [facility] Surgery Office/Clinic Noteon 09-65-4383Ulsmbmo Surgery Office/Clinic NoteChief Complaint post operative follow up HPI Staff [...] swallowing difficulties, no hearing loss, no ear infection(s),no nose bleeds. Cardiovascular: normal blood pressure, no [...] Hypertriglyceridemia Hyperuricemia IBS (irritable bowel syndrome) Insulinoma Dfqz-Nbmom-Mdxbtxq disease Lumbar disc disease Migraines Historical No [...] influenza virus vaccine, inactivated 02/15/2022 Recorded SARSCoV2 mRNA(cevksebnu-eahe-rnlllt) vac 11/29/2021 Recorded SARS-CoV-2 (COVID-19) mRNA BNT-162b2 vax 05/02/2021 Recorded 2022-04-19: TPV40 SARS-CoV-2 (COVID-19) mRNA BNT-162b2 vax 08/07/2020 Recorded 2022-04-19: TPV40 SARS-CoV-2 (COVID-19) mRNA BNT-162b2 vax 07/18/2020 Recorded 2022-04-19: TPV40 [facility] CenterComment on above:Result Comment: Electronically Signed By: WILMAN MCKEE, Khadar Canchola\Date and Time Signed: 05/17/22 15:50 EST Pathology Noteon 22-88-0911Ldoojiybg Note [id number]#1.00CD:127NoKing's Daughters Medical Center OhioOperative Reporton 18-73-9100Gtfklvgom Report [id number]#1.00CD:127NormKing's Daughters Medical Center OhioPOINT OF CARE GLUCOSEon 81-94-9944Qzixcya [Mass/Vol]153 mg/dLCritically mfvx40-552DbyBerger HospitalComment on above:Performed By: #### POCGLUC #### [facility] [address] [place] [address] Dr. Nayely Lu Reportson 69-05-6244Qbj Reports [id number]#1.00CD:127NoCleveland Clinic Avon HospitalCovid-19 PCR (CVDTBH)on 34-44-7544WOKW-CoV-2 (COVID-19) RNA JOSIE+probe Ql (Unsp spec)Not detectedNormalNOT DETECTEDThe [facility] LimaComment on above: Result Comment: This test is not yet approved or cleared by the [place] FDA. When there are no FDA-approved or cleared tests available, and other criteria are met, FDA can make tests available under an emergency access mechanism called an Emergency Use Authorization (EUA). The EUA for this test is supported by the Pain Management Specialist of Health and Human Service's (HHS's) declaration [...] of clinical signs and symptoms consistent with SARS-CoV-2.Performed By: #### CVDTBH #### [facility] [address] [place] [address] Dr. Nayely Alexis for Procedure/Surgeryon 32-39-3720Dovqppz for Procedure/[id number]#1.00CD:127[facility] CenterPhysician Referralon 91-82-9397Cgggosgvp Referral [id number]#1.00CD:127[facility] Medical CenterCovid-19 PCR (CVDTB)on 56-85-7678UEQE-CoV-2 (COVID-19) RNA JOSIE+probe Ql (Unsp spec)DetectedCritically abnormalNOT DETECTEDThe [facility] LimaComment on above:Result Comment: This test is not yet approved or cleared by the [place] FDA. When there are no FDA-approved or cleared tests available, and other criteria are met, FDA can make tests available under an emergency access mechanism called an Emergency Use Authorization (EUA). The EUA for this test is supported by the Pain Management Specialist of Health and Human Service's (HHS's) declaration [...] which the test may no longer be used).Performed By: #### POCGLUC #### [facility] [address] [place] [address] Dr. Nayely Velasquez Colonoscopyon 24-34-6427Hedgnsv Colonoscopy [id number]#1.00CD:127[facility] Hospitalinderson 93-38-0541Auodxuwqr From: Beverley Rizvi LPN To: N - Clinical; Sent: 10/25/2021 10:31:26 EDT Show up: 09/25/2031 07:00:00 EDT Subject: colonoscopy recall Due Date/Time: 10/25/2031 07:00:00 EDT Reminder/Recall Patient is due for screening colonoscopy 10/25/2031.[facility] CenterPOINT OF CARE GLUCOSEon 05-91-4076Sfyjjix [Mass/Vol]209 mg/dLCritically uoti31-439Qru [facility]imaComment on above:Performed By: #### POCGLUC #### [facility] [address] [address] [address] Nayely Alexis for Procedure/Surgeryon 01-01-1043Bpzolrr for Procedure/[id number]#1.00CD:[address] [place], [place] [address]Facesheeton 52-47-4078Mkiubtftj [id number]#1.00CD:[address] [place], [place] [address]RAD - CT Reporton 40-25-4170STU - CT Report [id number]#1.00CD:[address] [place], [place] [address]Historical Records Officeon 57-88-1269Ibofmscsap Records Office [id number]#1.00CD:[address] [place], [place] [address]Physician Referralon 60-05-0923Jqqfraybc Referral [id number]#1.00CD:[address] [place] [address] Vital Signs Date TimeVital SignValuePerforming OjtouexniBpsfwkcg74-21-5047 15:33-0500Body uqwtey729.8 Glendy Xiong MD Work Phone: [facility]02-11-2025 15:33-0500Body mass index (BMI) [Ratio]38.31 kg/u1WmbgjoxPoli Xiong MD Work Phone: [facility]02-11-2025 15:33-0500Body soslzf491.11 kgPoli Xiong MD Work Phone: [facility]11-08-2024 08:34-0500Body .8 cmHilary Timnms MD Work Phone: [facility] HospitalKzohjfazjr55-70-7753 08:34-0500Diastolic blood yigynhje47 mm[Hg]Trey Rincon MD Work Phone: [facility] HospitalQufemtyyuz70-37-0745 08:34-0500Systolic blood mm[Hg]Trey Rincon MD Work Phone: [facility] HospitalLjlkbchpoq63-72-5193 15:05-0400Body eldeon740.8 cmTrey Rincon MD Work Phone: [facility] HospitalTiwmqqktko22-40-1321 15:05-0400Diastolic blood ttiomlpf57 mm[Hg]Trey Rincon MD Work Phone: [facility] HospitalCkcusrhusl48-39-9526 15:05-0400Systolic blood twircvnm651 mm[Hg]Trey Rincon MD Work Phone: [facility] HospitalYrtuqfcfyf82-98-8806 12:33-0400Body .8 cmTmaren Xiong MD Work Phone: [facility]06-25-2024 12:33-0400Body mass index (BMI) [Ratio]38.31 kg/s7FkhinlxPoli Xiong MD Work Phone: [facility]06-25-2024 12:33-0400Body scdjuo910.11 kgPoli Xiong MD Work Phone: [facility]06-25-2024 12:33-0400Diastolic blood hdcjtmiu25 mm[Hg]Poli Xiong MD Work Phone: [facility]06-25-2024 12:33-0400Heart rate 83 /minPoli Xiong MD Work Phone: [facility]06-25-2024 12:33-0400Systolic blood criqxpsu876 mm[Hg]Poli Xiong MD Work Phone: [facility]05-08-2024 16:39-0400Body .8 cmMichelle Wilson PA Work Phone: [facility] Knnlte34-57-8958 16:39-0400Body mass index (BMI) [Ratio]38.31 kg/n5Hjsbqqjaevin Wilson PA Work Phone: [facility] Kvymen67-27-4659 16:39-0400Body dwuunr459.11 kgBartevin Wilson PA Work Phone: [facility] Stratio Jqhuus26-67-6068 16:39-0400Diastolic blood cxtckyuu26 mm[Hg]Radha Wilson PA Work Phone: [facility] Wiaqso46-43-0821 16:39-0400Heart rate 87 /minRadha Wilson PA Work Phone: [facility]onOrphaz[facility] Lnexgr01-81-1007 16:39-0400Systolic blood qtvgkdno782 mm[Hg]Radha Wilson PA Work Phone: [facility] Stratio Jjigvf34-72-6703 14:49-0500Blood Pressure LocationMichael NILL [facility] Ksnxxclt01-43-1344 14:49-0500Diastolic blood xjxyvicg29 mm[Hg]Khadar NILL [facility] Avsssprv68-00-1867 14:49-0500Heart rate 70 /minMichael NILL [facility] Gqzbptft99-04-2551 14:49-0500 Respiratory rate16 /minMichael NILL [facility] Lqkzsztp21-26-0243 14:49-0500Systolic blood brszrxil679 mm[Hg]Khadar NILL [facility] Cbdlvzyw08-90-6247 13:43-0400Blood Pressure LocationMichael NILL [facility] 05-31-2022 13:43-0400Diastolic blood fewlkukh38 mm[Hg] Khadar NILL [facility] 05-31-2022 13:43-0400Heart rate76 /minMichael NILL [facility] [place] 05-31-2022 13:43-0400Respiratory rate16 /minMichael NILL [facility] [place] 05-31-2022 13:43-0400Systolic blood dvicopof901 mm[Hg] Khadar NILL [facility] [place] Encounters Encounter DateEncounter TypeCare ProviderFacilityStart: 06-01-2024 End: 37-57-1378Qwjgaw outpatient visit 15 minutesPoli Xiong MD Work Phone: [facility] Genito-Urinary SurgeonsComment on above:Kidney stone (Primary Dx)Start: 06-01-2024 End: 01-93-3148guosmoaoguPBSNVVHMercy [facility] [place] PPGStart: 02-27-2024 End: 08-49-3520Bcoiip Pillo Rincon MD Work Phone: [facility] NORSINAIKStart: 02-27-2024 End: 98-24-8111Axuftm Pillo Rincon MD Work Phone: [facility] NORSINAIKStart: 02-27-2024 End: 45-71-3135Oiigwi outpatient visit 15 minutesTrey Rincon MD Work Phone: [facility] JOSEKComment on above:Dizziness and giddiness (Primary Dx); Mucous retention cyst of maxillary sinusStart: 02-27-2024 End: 50-25-4192fxjitpilagDIBZYE H TIMMISNot AvailableStart: 01-23-2024 End: 41-35-5436Mtrdghhcc encounterHipiyush Rincon MD Work Phone: [facility] NORWALKStart: 01-21-2024 End: 99-74-3157tvbfpsarfsWAEUFU Jeremiah RINCONNot AvailableStart: 01-20-2024 End: 96-52-8819Qcsjbb outpatient visit 25 minutesHipiyush Rincon MD Work Phone: [facility] CI ENTComment on above:Dizziness and giddiness (Primary Dx); Otalgia, bilateral; Chronic sinusitis, unspecified location; Bilateral impacted cerumenStart: 01-20-2024 End: 15-72-1238ddscuaeonxOLFROV Jeremiah RINCONNot AvailableStart: 01-20-2024 End: 22-61-7180Jqkhre Pillo Rincon MD Work Phone: [facility] CI ENTStart: 01-20-2024 End: 67-94-8957Mxtwhf Pillo Rincon MD Work Phone: [facility] CI ENTStart: 01-12-2024 End: 11-27-4599vdgpplfullUOGCUSY A [facility] HealthcareComment on above: Asymmetrical sensorineural hearing loss (Primary Dx); Eustachian tube dysfunction, bilateralStart: 01-12-2024 End: 36-42-0521Bbocqm [facility] CenterkayliH[facility] Center-A Work Phone: [facility] AUDStart: 01-12-2024 End: 66-17-2383Lgwshy [facility]-A Work Phone: [facility] AUDStart: 11-24-2023 End: 10-28-9488omqiwklncfPICJAH Jeremiah Tena AvailableStart: 10-26-2023 End: 49-83-0707Yxsdzinbf department patient visitDAVID St. [facility]'s Hospitaltart: 10-14-2023 End: 54-30-8169Bijvih outpatient visit 15 minutesPoli Xiong MD Work Phone: [facility]onca [facility]icians Genito-Urinary SurgeonsComment on above:Kidney stone (Primary Dx)Start: 10-14-2023 End: 21-78-4898mhvaifshekNTHHULP [facility] Ambulatory PPG Start: 10-13-2023 End: 62-30-1213Gtuasgcwk encounterPadmini [facility] Genito- Urinary SurgeonsStart: 10-13-2023 End: 81-74-5126hvsanewqavPRMZBQBRNoland Hospital Montgomery HospitalStart: 09-08-2023 End: 73-10-2481ljjplpjbmkWOKLRZJ M [facility] Limatart: 08-27-2023 End: 12-76-4237Vttckk outpatient visit 25 minutesMicevin ARCHULETA Work Phone: [facility] Genito-Urinary SurgeonsComment on above:Kidney stone (Primary Dx)Start: 08-27-2023 End: 18-55-5322zqziwyhcckHLNLRXKBPalo [facility] PPG Start: 08-23-2023 End: 44-95-0241zwhksohkcbMXSW M [facility] HospitalStart: 08-23-2023 End: 94-82-4733Hojrcvzjs department patient visitDOUGFINN Carlson [facility] HospitalStart: 08-23-2023 End: 75-47-9270Wwwmgnhaa encounterDheeraj Garrison MD Work Phone: [facility] Genito-Urinary SurgeonsStart: 12-06-2022 End: 59-25-3882nllhnrbmqdTHTGDVO M HOYMercy Buffalo HospitalStart: 07-08-2022 End: 67-65-4359rexlsqhedgBJ FER DAVEY .Facility:E3Cyuhr: 06-21-2022 End: 36-20-3158ktwxkudueqHZ FER DAVEY .Facility:I7Lwlkk: 06-17-2022 End: 76-58-0525Uxmtafxrfb and management of inpatientDR FER DAVEY .Facility:H1 Start: 05-17-2022 End: 10-64-6804cywyznoapkMnaszrt R NILLFacility:[facility] Centertart: 05-17-2022 End: 08-07-5242Fsoevzl encounter procedureMichael R NILL General Surgery Nill/Said [facility] Start: 82-65-9597Vvckragfy for preprocedural laboratory examinationDR KHADAR BOYCEL .[facility] HospitalStart: 05-08-2022 End: 60-73-2003dhmjjwymbtZwymmca R NILLFacility:CD:[id number]: 05-03-2022 End: 35-37-5000kcrrwntmqtOW KHADAR NILL .Facility:M2Mzbds: 05-03-2022 End: 02-20-9693Xsobhajka for preprocedural laboratory examinationDR KHADAR BOYCEL .Facility:A2Sposi: 04-19-2022 End: 46-09-6769wediijeyhwIryqowk Hoy PROVIDERFacility:[facility] Hospitalrt: 04-19-2022 End: 42-12-0072Wmqelby encounter procedureMichael R NILL General Surgery Nill/Said [place] Start: 12-13-2021 End: 84-77-2144qeubtubldvDR FER HOY .Facility:O0Anlgo: 10-24-2021 End: 18-15-5186famptljskeBmnwwtn R NILLFacility:CD:[id number]: 10-20-2021 ambulatoryDR FER HOY .Facility:J3Sfntd: 09-18-2021 End: 30-64-4135ppzbgtwfbgKtsvbdj Hoy PROVIDERFacility:[facility] Centertart: 09-18-2021 End: 43-73-0196Vxvngzh encounter procedureMichael R NILL General Surgery Nill/Said [place] Start: 55-34-6894ogrkzqvxglQrnhxba NILLFacility: MilanStart: 65-20-1422xykfjytkzzIbujiec Hoy PROVIDERFacility:[facility] Procedures DateProcedureProcedure DetailPerforming ClinicianStart: 22-86-4587Qgesye-up visitFollow-upPOLI SHAWtart: 49-20-6842SFFOVICS FUNCTION TESTSEugenesondra Saunders [facility]-A Work Phone: start: 01-99-7023Uemfa dip stick/tablet rgnt auto w/o microscopyPoli Xiong MD Work Phone: Start: 09-85-0535Eqwjh dip stick/tablet rgnt auto w/o microscopyMicevin ARCHULETA Work Phone: Start: 24-62-7227Gxfaow-up visitFollow-upMICEVIN WILSONStart: 05-74-6698Ztmtqiock of Infusion Device into Upper Vein, Percutaneous ApproachDR FER HO .Start: 92-96-4494Atfdgiqycychxbeigpfopqzzzr Khadar NILL Start: 22-53-5819LnbfevfsvkqHlqxpmv NILL History of operative procedure on hipMichael NILL Plan of Treatment DateCare ActivityDetailAuthorStart: 06-07-2025 End: 84-46-7100Syzlyna encounter vdfpozbyt22/17/2026 2:45 PM EST Office Visit [facility] [address] [place] [address] [place] [address] [place] [address] Poli Xiong MD [address] [place] [address] [facility]Urinary SurgeonsStart: 38-82-1318Kukpr BMI ScreeningAdult BMI ScreeningProMedica Health SystemStart: 50-15-4141Gwurkop ScreeningTobacco ScreeningProMedica Health SystemStart: 06-01-2025 End: 58-17-5690WG Abdomen APX-ray abdomen ap 1 view Imaging Routine Kidney stone Expected: 06/01/2025, Expires: 06/01/2026[facility] Work Phone: Comment on above:Expected: 06/01/2025, Expires: 06/01/2026Start: 11-20-1484Vzasi BMI ScreeningAdult BMI ScreeningProLancaster Municipal Hospitalca Health SystemStart: 72-27-5527Khqwsau ScreeningTobacco ScreeningProMedica Health SystemStart: 58-76-4210Vtqsw BMI ScreeningAdult BMI ScreeningProMedica Health SystemStart: 42-73-4975Kldulqh ScreeningTobacco ScreeningProMedica Health System Start: 57-79-5437Brwni BMI ScreeningAdult BMI ScreeningProMedica Health System Start: 06-01-2024 End: 05-36-8754Wgcblsn encounter uuwoxlmou10/11/2025 3:45 PM EST Office Visit [facility] [address] [place] [address] [place] [address] Poli Xiong MD [address] [place] [address] [facility]Urinary SurgeonsStart: 05-25-2024 End: 35-30-0581UK Abdomen APX-ray abdomen ap 1 view Imaging Routine Kidney stone Expected: 05/25/2024, Expires: 08/26/2024ProMedica Health SystemComment on above:Expected: 05/25/2024, Expires: 08/26/2024Start: 02-27-2024 End: 89-02-0653Fjiyslz encounter oabbsgtsv91/08/2024 9:00 AM EST Office Visit [facility] [address] [facility] [address] [place] [address] Trey Rincon MD [address] [facility] [address] [place] [address] ArrivedNOMS ENT NORWALKComment on above:ArrivedStart: 01-20-2024 End: 05-57-3388Uhwskzc encounter procedureNOMS CI ENTComment on above:Arrived Start: 01-12-2024 End: 55-75-5516Vwrbqqdh Ywanjeo9901/12/2024 2:45 PM EDT Clinical Support [facility] [address] [place] [phone] Alison Saunders [facility] [address] [place] [address] ArrivedNOSAINT LOUIS UNIV[facility] AUDComment on above:ArrivedStart: 12-21-2023 COVID-19 Vaccine ( season)COVID-19 Vaccine ( season) [facility] SystemStart: 13-57-7301Oninrybmq vaccinationNOOH Healthcare Start: 10-14-2023 End: 97-07-2910Dqcrbch encounter aekzqship14/25/2024 12:30 PM EDT Office Visit [facility] [address] [place] [address] A [facility] [address] Poli Xiong MD [address] [place] [address] [id number] [facility]Urinary SurgeonsStart: 14-45-4217MZmZ,Tdap and Td Vaccines (1 - Tdap)DTaP,Tdap and Td Vaccines (1 - Tdap)[facility] SystemStart: 04-19-6744Lgfor BMI Follow Up PlanAdult BMI Follow Up PlanProMedica Health SystemStart: 41-34-3817Zeaqeledtn ScreeningDepression ScreeningProMedica Health SystemStart: 25-39-8736Ekmfmen ScreeningTobacco ScreeningProMedica Health System Start: 29-75-3111Yieitwclk for malignant neoplasm of colonNOOH Healthcare End: 57-53-8262Xevypvqjqhl, urineMicroscopic, urine Lab Routine Kidney stone PRN for 1 Occurrences starting 08/27/2023 until 08/26/2024[facility] Work Phone: Comment on above:PRN for 1 Occurrences starting 08/27/2023 until 08/26/2024 Immunizations Immunization DateImmunizationNotesCare KgeezqftVbbfwteg71-24-1823rktrxtslc virus vaccine, unspecified formulationMichael NILL General Surgery Aiwxriir73-72-4647OGEY-XeG-1 mRNA (fgrueamontt-juqw-pqcelvo) vaccineMichael NILL General Surgery Gjbuassv85-52-6314PLVH-RnO-3 (COVID-19) mRNA BNT-162b2 vaxMichael NILL General Surgery BellevueComment on above:Result Comment: 2022-04-19: [id number]-KfR-1 (COVID-19) mRNA BNT-162b2 vax Khadar NILL General Surgery BellevueComment on above:Result Comment: 2022-04-19: [id number]-RhT-3 (COVID-19) mRNA BNT-162b2 vax Khadar NILL General Surgery BellevueComment on above:Result Comment: 2022-04-19: [id number] Payers DatePayer CategoryPayerPolicy [id number] Health InsuranceCITY HOSPITALCAL MUTUAL [id number] Managed Care - PPOM[employer]ICAL M[employer]UAL Member Subscriber Plan / Payer (Effective 2019- Present) Name: Shilo Vegas Relation to Subscriber: Self Name: Shilo Vegas ID: Not on file Type: Not on file Address: [address] [id number] [id number] 2.0.1.052620.3.57[id number] 2.840.1.618351.3.57[id number] 2.840.1.129580.3.57[id number] 2.840.1.894964.3.57[id number] 2.840.1.136395.3.57[id number] 2.840.1.969383.3.57[id number] 2.840.1.198637.3.57[id number] 2.16840.1.672165.3.57[id number] 2.840.1.777295.3.57[id number] 2.16840.1.057782.3.579.2.65043-23-1986Zyqvlox7081969 2.840.1.489226.3.579.2.53735-21-8654Fdacgme1205715 2.840.1.245740.3.579.2.07068-02-7737Olihfkv7802743 2.840.1.915598.3.579.2.72116-06-8863Uttmhlm8661172 2.840.1.121924.3.57[id number] 2.840.1.255146.3.57[id number] 2.0.1.753209.3.57[id number] 2..1.384621.3.57[id number] 2..1.388181.3.579.[id number] 2.0.1.686874.3.579.2.271889-15-4176Tqmdrcx5151113 2..1.971860.3.579.2.575516-14-9727Wjcdkrx2183880 2..1.026556.3.579.2.889146-12-8546Mnncojv4970313 2..1.283558.3.579.2.754289-99-1832Lguiwbr7139212 2.0.1.412050.3.579.2.[id number] 2.0.1.373962.3.579.[id number] 2.840.1.490182.3.579.2.772220-89-3558Aitphzr77255454 2.840.1.916133.3.579.2.437408-64-5977Mmsttlv06484986 2.16.840.1.799847.3.57[id number] 2.16.840.1.720338.3.579.2.388474-85-2840Cmafetx82829174 2..840.1.405345.3.579.2.086743-15-9831Yiqaeoj42900728 2.16.840.1.306378.3.579.2.573870-26-6720Mhgfdyq618180712148 Social History DateTypeDetailFacilityStart: 09-18-2021 End: 86-39-1010Cnlopnr smoking statusNever smoked tobacco (finding)[facility] Surgery [facility] Tobacco smoking statusNeverGeneral Surgery [facility] Start: 10-14-2023 End: 47-84-3279Piv Assigned At BirthMaleGeneral Surgery [facility] Start: 08-27-2023 End: 12-29-6980Rjawapu use and exposureSmokeless tobacco non-userAdams County Regional Medical Center SystemStart: 10-14-2023 End: 84-19-4219Irkxrifnq beverage intakeCurrent drinker of alcohol (finding) [facility] SystemStart: 10-14-2023 End: 24-39-6130Kfgfosj of Social functionAdams County Regional Medical Center SystemStart: 83-87-3516Lfr assigned at birthNot on fileAdams County Regional Medical Center SystemStart: 25-18-7899Zpmowbw CommentsociallyProMedLakeHealth [facility] SystemStart: 93-25-0140IuxNjnp (finding)[facility] System Functional Status IplqUsibwoxyduGchsloSyqrfaoo35-28-1187Yrbvuqpfaf StatusN/AGeneral Surgery [facility] Clinical Notes 09-18-2021 to 06-01-2024 Note Date & JpfbIinhUoteaukq32-58-7849 History of Present illness Narrative* Poli Xiong MD - 06/01/2024 2:20 PM EST Images from the original note were not included. [address] [place] [address] A [facility] [address] Patient: Shilo Carpio Case Date of : [...] no recurrence of that. Continues to have ongoingissues with significant constipation. Has been seen by [...] past medical history, past social history, past surgicalhistory and problem list. Past Medical History: Diagnosis Date Constipation COVID-19 Diabetes ([facility]) Past Surgical History: Procedure Laterality Date [...] Problem List None Follow-up: [facility] This note was created with the assistance of a speech recognition program. While intending to generate a timely document that accurately reflects the content of the visit, no guarantee can be provided that every grammatical or spelling mistake has been or will be identified or corrected. Thank you for your understanding. documented in this encounterNewark Hospital11-08-2024 History of Present illness Narrative* Trey Rincon MD - 02/27/2024 9:00 AM EST Subjective Patient ID: Shilo Carpio Case is a 49 y.o. male who presents for Sinusitis (CT [facility] 02/13/24) Pt presents after getting CT from Dr Ho. CT reviewed and there is no sinus dz, but there is a leftmaxillary sinus retention cyst. Getting an MRI due [...] frequency 06/12/2021 Acne 11/19/2023 Hyponatremia 11/19/2023 Sepsis ([facility]/HCC) 11/19/2023 COVID-19 11/19/2023 Hyperuricemia 11/19/2023 Insulinoma 11/19/2023 Acute nontraumatic kidney injury (CMS/HCC) 11/19/2023 Sinus tachycardia 11/19/2023 GERD (gastroesophageal reflux disease) 11/19/2023 Overweight 11/19/2023 Lumbar disc disease 11/19/2023 Constipation 11/19/2023 Balanitis 11/19/2023 Acute cystitis without hematuria 11/19/2023 Acute sinusitis 11/19/2023 IBS (irritable bowel syndrome) 11/19/2023 Diverticulitis 11/19/2023 Hypertriglyceridemia (CMS/HCC) 11/19/2023 Borderline diabetes mellitus 11/19/2023 Glaucoma ([facility]/HCC) 11/19/2023 Migraine headache ([facility]) 11/19/2023 Gynecomastia 11/19/2023 Acyy-Stytp-Uqqwjnc disease 11/19/2023 Resolved Ambulatory Problems Diagnosis Date [...] sinus No tx needed documented in this encounterLee's Summit HospitalXrkzihkwme45-49-0040 Telephone encounter Note* Telephone Encounter - Dari Rincon - 02/03/2024 8:49 AM EDT Called pt to schedule follow up appt/he said his PCP is ordering a CT. PT will call back to schedule once he knows when the CT will be. [facility] Summit HospitalYiekrkfyhv44-88-8708 Miscellaneous Notes* Telephone Encounter - Dari Rincon - 02/03/2024 8:49 AM EDT Called pt to schedule follow up appt/he said his PCP is ordering a CT. PT will call back to schedule once he knows when the CT will be. * Telephone Encounter - Trey Rincon MD - 01/23/2024 7:54 AM EDT Pt needs F/U appt to review xray results documented in this encounterLee's Summit HospitalGlwqjfrsan17-62-2726 Telephone encounter Note* Telephone Encounter - Trey Rincon MD - 01/23/2024 7:54 AM EDT Pt needs F/U appt to review xray results [facility] HospitalEjjnlvdvew78-36-4673 History of Present illness Narrative* Trey Rincon MD - 01/20/2024 3:20 PM EDT Subjective Patient ID: Shilo Carpio Case is [...] (CMS/HCC) 11/19/2023 Borderline diabetes mellitus 11/19/2023 Glaucoma ([facility]) 11/19/2023 Migraine headache ([facility]) 11/19/2023 Gynecomastia 11/19/2023 Zghq-Bjzpw-Arliijb disease 11/19/2023 Resolved Ambulatory Problems Diagnosis Date [...] impacted cerumen Ears debrided documented in this encounterLee's Summit HospitalEelntieknv88-76-5690 History of Present illness Narrative* IMELDA Beatty - 01/12/2024 2:45 PM EDT History: Pt was referred to ENT because [...] Ear: Type A tympanogram documented in this encounterLee's Summit HospitalBwrjmdumke15-70-3886 History of Present illness Narrative* Poli Xiong MD - 10/14/2023 12:30 PM EDT Images from the original note were not included. [address] [place] [address] A [facility] [address] Patient: Shilo Carpio Case Date of : 1975 Encounter Date: 10/14/2023 History of Present Illness: Chief Complaint: Follow up The patient is a 48 y.o. male, an established patient, and is here for follow- up. He had recently seen our PA August 27, 2023 when he had presented the ER and found to have a 6 mm proximal ureteral calculus. He reports that he would passed it. Had been doing well until about 2 weeks ago and developed lower back pain along with extraordinary urinary frequency and some pain radiating into his testicle.He saw his primary care physician. Was given [...] past medical history, past social history, past surgicalhistory and problem list. Past Medical History: Diagnosis Date Constipation COVID-19 Diabetes ([facility]) Past Surgical History: Procedure Laterality Date [...] you for your understanding. documented in this encounterSelect Medical Specialty Hospital - CantonOrphazyme Jpsgpp64-57-4690 Miscellaneous Notes* Telephone Encounter - Padmini Carrasco LPN - 10/13/2023 11:53 AM EDT This nurse called the Pt. To remind him to get his KUB done for his appointment with MD Freddy. Pt. Stated that he would go get that done today. No further questions at this time. documented in this encounterNewark Hospital06-24-2024 Telephone encounter Note* Telephone Encounter - Padmini Carrasco LPN - 10/13/2023 11:53 AM EDT This nurse called the Pt. To remind him to get his KUB done for his appointment with MD Freddy. Pt. Stated that he would go get that done today. No further questions at this time. [facility]05[facility] Evaluation + Plan note* Assessment & Plan Note - KATHE Tuttle - 08/27/2023 5:12 PM EDTAssociated Problem(s): Kidney stone In 9 months with a KUB. He will call sooner if any problems. [facility]05-08-2024 Miscellaneous Notes* Assessment & Plan Note - KATHE Tuttle - 08/27/2023 5:12 PM EDTAssociated Problem(s): Kidney stone In 9 months with a KUB. He will call sooner if any problems. documented in this encounterNewark Hospital05-08-2024 History of Present illness Narrative* KATHE Tuttle - 08/27/2023 4:15 PM EDT Images from the original note were not included. [address] [place] [phone] Patient: Shilo Carpio Case Date of : [...] past medical history, past social history, past surgicalhistory and problem list. Past Medical History: Diagnosis Date Constipation COVID-19 Diabetes ([facility]) Past Surgical History: Procedure Laterality Date [...] urine X-ray abdomen ap 1 view KATHE TUTTLE This note was created with the assistance of a speech recognition program. While intending to generate a timely document that accurately reflects the content of the visit, no guarantee can be provided that every grammatical or spelling mistake has been or will be identified or corrected. Thank you for your understanding. KATHE Tuttle 08/27/23 1713 documented in this encounterNewark Hospital05-08-2024 Instructions* Patient Instructions* KATHE Tuttle - 08/27/2023 4:15 PM EDT Make sure your urine clears up, please stop at the lab in the next few weeks to leave another urinespecimen. The order is in the system. Please go to [facility]. I will call you with the results. [...] kidney stone diet. We will check on theremaining stone with an x-ray in 9 months. Call sooner if any problems. If you get another urinary tract infection, it may be worth having you go forward with a cystoscopy. This allows the doctor to assess the urethra and the bladder. * Attachments The following attachments cannot be sent through Care Everywhere. * Kidney Stone Diet (Divehi) documented in this encounterNewark Hospital05-04-2024 Miscellaneous Notes* Telephone Encounter - Dheeraj Garrison Jr., MD - 08/23/2023 7:48 PM EDT Contact patient and make appointment for him 1st available provider. I returned pro [facility] access call 7:23 p.m. on 08/23/[address] Selwyn Clark standing emergency department. He identified patient is 48-year-old [...] fever or refractory pain. documented in this encounterSelect Medical Specialty Hospital - CantonOrphazyme Ooxaxg62-56-6002 Telephone encounter Note* Telephone Encounter - Dheeraj Garrison Jr., MD - 08/23/2023 7:48 PM EDT Contact patient and make appointment for him 1st available provider. I returned pro [employer] access call 7:23 p.m. on 08/23/[address] Selwyn Clark [employer] emergency department. He identified patient is 48-year-old [...] return immediately for fever or refractory pain. [place] HospitalApp in the Air Work Phone: [phone] 172-459301-18-2023 NoteOPERATIVE NOTE OPERATION DATE: 05/08/2022 PREOPERATIVE DIAGNOSIS: Gastroesophageal reflux disease, intermittent dysphagia. POSTOPERATIVE DIAGNOSIS: Bile reflux, mild antral gastritis, mild distal esophagitis. PROCEDURE: EGD with antral biopsy. SURGEON: Khadar Stovall M.D. ANESTHESIA: Monitored anesthesia care. ESTIMATED BLOOD [...] room in good condition. CC: Patient's family doctor.[facility] LimaLrikhljg28-92-5691 NoteChief Complaint consultation for GERD and dysphagia HPI Staff 47 year old male presents on consultation from Dr. Ho for GERD and dysphagia. Reports dry mouth and raw throat with use of Jardiance which he thought was contributing to symptoms. Jardiance has beenstopped with improvement in symptoms but not resolution. [...] swallowing difficulties, no hearing loss, no ear infection(s),no nose bleeds. Cardiovascular: normal blood pressure, no [...] Hypertriglyceridemia Hyperuricemia IBS (irritable bowel syndrome) Insulinoma Rjyb-Aelrl-Smtxdyf disease Lumbar disc disease Migraines Historical No [...] Mother and Father. Hyper (more content not included)...[facility] HospitalComment on above: Result Comment: Electronically Signed By: WILMAN MCKEE, Khadar Canchola\Date and Time Signed: 04/20/22 10:56 [id number] NoteOPERATIVE NOTE OPERATION DATE: 10/24/2021 PREOPERATIVE DIAGNOSIS: Left lower quadrant abdominal pain, change in bowel habits. POSTOPERATIVE DIAGNOSIS: Redundant colon. PROCEDURE: Colonoscopy to cecum. SURGEON: Khadar Stovall M.D. ANESTHESIA: Monitored anesthesia care. ESTIMATED BLOOD [...] screening should be in 10 years. : [facility] Signed and Approved by: DR KHADAR STOVALL . 10/29/2021 17:17:00[facility]05-31-20[facility] NoteChief Complaint consultation for LLQ HPI Staff 46 year old male presents on consultation from Dr. Ho for LLQ pain. Experiencing intermittent painsince March. Pain is worse when lying on [...] swallowing difficulties, no hearing loss, no ear infection(s),no nose bleeds. Cardiovascular: normal blood pressure, no [...] Hypertriglyceridemia Hyperuricemia IBS (irritable bowel syndrome) Insulinoma Tazq-Xzdyd-Gtkijaz disease Migraines Historical No qualifying data Procedure/Surgical [...] and Father. Hypertension: Mother and Father. Stroke: Mother.[facility] HospitalComment on above:Result Comment: Electronically Signed By: WILMAN MCKEE, Khadar Canchola\Date and Time Signed: 09/18/21 17:37 EDTEvaluation + Plan note No data available for this section [facility] Evaluation note* Diagnosis Dizziness and giddiness- Primary Otalgia, bilateral Chronic sinusitis, unspecified location Bilateral impacted cerumen Impacted cerumen documented in this encounter [facility]* Diagnosis Dizziness and giddiness- Primary Mucous retention cyst of maxillary sinus documented in this encounter [facility]* Diagnosis Asymmetrical sensorineural hearing loss- Primary Sensorineural hearing loss, asymmetrical Eustachian tube dysfunction, bilateral documented in this encounter [facility] HealthcareEvaluation [facility]* Diagnosis Kidney stone- Primary Calculus of kidney documented in this encounter [facility]* Diagnosis Kidney stone- Primary Calculus of kidney Kidney stone- Primary Calculus of kidney documented in this encounter [facility]Evaluation [facility]* Diagnosis Kidney stone- Primary Calculus of kidney documented in this encounter [facility] SystemHospital Discharge instructions No data available for this section [facility] InstructionsNot on filedocumented in this encounter [facility] SystemInstructionsNot on filedocumented in this encounter [facility] SystemInstructionsNot on filedocumented in this encounter [facility] SystemInstructionsNot on filedocumented in this encounter [facility] SystemProgress note No data available for this section [facility] Summary Purpose Family History No Family History [...] team informatio n (unrecognized section and content) Team MemberRelationshipSpecialtyStart DateEnd Date Fer Ho MD [address] [place] [address] PCP - GeneralFamily Medicine11/14/23Team MemberRelationshipSpecialtyStart DateEnd Fer Ho MD [address] [facility] [place] [address] PCP - GeneralFamily Medicine11/14/23Team MemberRelationshipSpecialtyStart DateEnd Date Fer Ho MD [address] [facility] [place] [address] PCP - GeneralFamily Medicine11/14/23Team MemberRelationshipSpecialtyStart DateEnd Date Fer Ho MD [address] [facility] [place] [address] PCP - GeneralFamily Medicine11/14/23Team MemberRelationshipSpecialtyStart DateEnd Date Fer Ho MD [address] [facility] [place] [address] PCP - GeneralFamily Medicine11/14/23Team MemberRelationshipSpecialtyStart DateEnd Date Fer Ho MD [address] [facility] [place] [address] PCP - GeneralFamily Medicine11/14/23Team MemberRelationshipSpecialtyStart DateEnd Date Fer Ho MD [address] [facility] [place] [address] PCP - GeneralFamily Medicine06/12/21Team MemberRelationshipSpecialtyStart DateEnd Date Fer Ho MD [address] [facility] [place] [address] PCP - GeneralFamily Medicine06/12/21Team MemberRelationshipSpecialtyStart DateEnd Date Fer Ho MD PCP - Generalmily Medicine10/26/23Team MemberRelationshipSpecialtyStart DateEnd Date Fer Ho MD [address] [place] [address] PCP - [facility] Medicine06/12/21Team MemberRelationshipSpecialtyStart DateEnd Date Fer Ho MD [address] [place] [address] [facility] - [facility]06/12/21 (unrecognized sect ion and content) No Status Records FoundNo Status Records FoundNo Status Records FoundNo Status Records FoundNo Status Records FoundNo Status Records FoundNo Status Records Found INFORMATION SOURCE (unrecogn ized section and content) DATE CREATED AUTHOR 05/23/2022 [facility] DATE CREATED AUTHOR AUTHOR'S ORGANIZ ATION 07/14/2022 [facility] DATE CREATED AUTHOR AUTHOR'S ORGANIZ ATION 12/08/2022 [facility] DATE CREATED AUTHOR AUTHOR'S ORGANIZ ATION 10/27/2023 [facility] DATE CREATED AUTHOR AUTHOR'S ORGANIZ ATION 02/29/2024 [facility] DATE CREATED AUTHOR AUTHOR'S ORGANIZ ATION 06/03/2024 [facility] DATE CREATED AUTHOR AUTHOR'S ORGANIZ ATION 06/03/2024 [facility] Reason for Visit (unrecogniz ed section and content) ReasonCommentsEar ProblemFollow up audio 01/11ReasonCommentsSinusitisCT [facility] 02/13/24ReasonCommentsFollow-up6 MM STONESpecialtyDiagnoses / ProceduresReferred By ContactReferred To ContactUrology Diagnoses Kidney stone German Samano M, DO [address] [place] [address] [facility] Surg [address] [place] [address] Referral IDStatusReasonStart DateExpiration DateVisits RequestedVisits [id number] Review Specialty Services Required [id number]-cdWfucwaVqbcvwtnFxqefl-mewzygyq infection f/u FOR RECORDS PERTAINING TO PATIENTS [...] BE BASED ON THE PRIMARY CLINICAL RECORDS. [facility] [employer] provides no warranty or guarantee of the accuracy or completeness of information in this document.
[2025-03-11 13:22] LABS: Glucose Urine UA NEGATIVE (NEGATIVE)
[2025-03-11 13:31] LABS: Cast Seen? NONE SEEN #/LPF (NONE SEEN); Crystals Seen? None Seen #/HPF (None Seen)
== END 2025-03-11 09:51 | disposition home or self-care (01) ==
PROVIDERS: PCP Family Medicine; Visit Provider Family Medicine
DX: N39.0 Urinary tract infection, site not specified (principal)
CPT/HCPCS: 81001; 87086